=== PATIENT | male | born 1970 | race African-American/Black ===

== ENCOUNTER 2023-03-20 21:02 | Emergency (ER) | payer MEDICAID, SELFPAY ==
[2023-03-20 21:04] VITALS: BMI 27.3
[2023-03-20 21:06] VITALS: BP 174/80; PULSE 89; RESP 16; TEMP 36.7; O2SAT 99
[2023-03-20 21:11] LABS: Glucose Point of Care 407 mg/dL (70-110)
--- NOTE | 2023-03-20 21:11 | W.ED.GENADLT ---
HPI - General Adult General: Chief complaint: General Medical Stated complaint: hyperglycemia Time Seen by Provider: 03/20/23 21:04 Source: patient Mode of arrival: ambulatory Limitations: no limitations History of Present Illness: 52-year-old male who has a history of type 1 diabetes who is here from a assisted. He states that his blood sugars are running in the 500s to 4 7 here he has no other complaints at this time he denies any vomiting diarrhea or abdominal pain. He does have intellectual disability but is still able to answer most questions. Associated symptoms: Deny chest pain, dyspnea, headache(s), nausea, rash or vomiting Review of Systems Const: Denies: fever(s) or chills Eyes: Denies: blurry vision or eye discomfort ENMT: Denies: throat pain Card: Denies: chest pain Resp: Denies: dyspnea GI: Denies: abdominal pain, nausea, vomiting or diarrhea : Denies: dysuria Musc: Denies: neck pain or back pain Skin/Breast: Denies: rash Neuro: Denies: headache(s) PFSH ED PFSH: Medical History (Updated 03/20/23 @ 22:26 by Oneida De Anda MD) Diabetes Physical Exam Const: COMMON NORMALS: no acute distress, patient oriented x3 and healthy appearing HENMT: COMMON NORMALS: normocephalic and atraumatic HEAD & SCALP: normocephalic and atraumatic Eye: COMMON NORMALS: Equal, round and reactive pupils present and EOMs intact bilaterally PUPIL: Yes Equal, round and reactive pupils present Neck/C-Spine: COMMON NORMALS: full ROM and supple Chest: COMMONS NORMALS: normal inspection of the chest and normal palpation of entire chest wall Resp: COMMON NORMALS: normal respiratory effort, No retractions, No use of accessory muscles and clear to auscultation bilaterally AUSCULTATION: clear to auscultation bilaterally Cardio: COMMON NORMALS: regular rate, regular rhythm and No murmurs present (Cardio) RATE: regular rate RHYTHM: regular rhythm GI: COMMON NORMALS: Normal to inspection, nondistended, normoactive bowel sounds present, Soft to palpation, non-tender and no masses PALPATION: Yes Soft to palpation Extremity: COMMON NORMALS: normal to inspection and full ROM Neuro: COMMON NORMALS: patient oriented x3, moves all extremities and no focal motor deficits Psych: COMMON NORMALS: mental status grossly normal, Normal thought process present and cooperative THOUGHT PROCESS: Normal thought process present Skin: COMMON NORMALS: no rashes or lesions noted and no wounds GENERAL SKIN EXAM: no rashes or lesions noted Course Vital Signs: Vital signs: Vital Signs Temperature 98.0 F 03/20/23 21:06 Pulse Rate 93 03/20/23 21:53 Respiratory Rate 18 03/20/23 21:53 Blood Pressure 174/82 03/20/23 21:53 Pulse Oximetry 96 03/20/23 21:53 Oxygen Delivery Me thod Room Air 03/20/23 21:53 MDM - General Adult Medical Decision Making Patient presents with hyperglycemia his blood glucose here is improved he is not in DKA he is otherwise well-appearing here. Does have some chronic kidney disease he has a normal potassium he is to follow-up with his primary care doctor in 1 to 3 days return if worsening discharged back to his assisted. Lab Data 03/20/23 21:10 03/20/23 21:10 Radiology Impressions Chest X-Ray 03/20/23 21:27 IMPRESSION: Mild atelectasis. No acute infiltrate. Laboratory Results WBC 4.3 10^3/uL (4.0-10.0) 03/20/23 21:10 RBC 2.90 10^6/uL (4.1-5.3) L 03/20/23 21:10 Hgb 8.4 g/dL (11.7-16.6) L 03/20/23 21:10 Hct 26.9 % (42.0-52.0) L 03/20/23 21:10 MCV 92.8 fl (80-94) 03/20/23 21:10 MCH 29.0 pg (28.0-34.0) 03/20/23 21:10 MCHC 31.2 g/dL (30.0-36.0) 03/20/23 21:10 RDW 15.8 % (12.1-15.1) H 03/20/23 21:10 Plt Count 253 10^3/cmm (130-400) 03/20/23 21:10 MPV 10.9 fL (7.4-10.4) H 03/20/23 21:10 Neut % (Auto) 67.8 % 03/20/23 21:10 Lymph % (Auto) 22.8 % 03/20/23 21:10 [place] % (Auto) 6.6 % 03/20/23 21:10 Eos % (Auto) 1.6 % 03/20/23 21:10 Baso % (Auto) 0.7 % 03/20/23 21:10 Neut # (Auto) 2.88 10^3/uL (1.8-7.7) 03/20/23 21:10 Lymph # (Auto) 1.0 10^3/uL (0.8-4.8) 03/20/23 21:10 [place] # (Auto) 0.3 10^3/uL (0.2-0.9) 03/20/23 21:10 Eos # (Auto) 0.1 10^3/uL (0.0-0.8) 03/20/23 21:10 Baso # (Auto) 0.0 10^3/uL (0.0-0.1) 03/20/23 21:10 Nucleated RBC % (auto) 0 % 03/20/23 21:10 Nucleated RBCs # 0.0 /100WBC 03/20/23 21:10 Specimen Type Venous 03/20/23 21:33 Sample Site Radial, right 03/20/23 21:33 ABG pH 7.34 (7.35-7.45) L 03/20/23 21:33 ABG pCO2 47.6 mmHg (35-45) H 03/20/23 21:33 ABG HCO3 25.4 mmol/L (22-26) 03/20/23 21:33 ABG Base Excess -0.6 mmol/L (-2.0-2.0) 03/20/23 21:33 Jeff Test Pos 03/20/23 21:33 Hematocrit 24.4 % (42-52) L 03/20/23 21:33 Hgb O2 Saturation 69.2 % (95-100) L 03/20/23 21:33 Carboxyhemoglobin 4.1 %THgb (0.4-20.1) 03/20/23 21:33 Methemoglobin 0.6 % (0.4-1.5) 03/20/23 21:33 Total Hemoglobin 8.0 g/dL (14-18) L 03/20/23 21:33 O2 Delivery Device None 03/20/23 21:33 FiO2 21.0 % 03/20/23 21:33 Scrap Kettle Tender ID [email or web address] 03/20/23 21:33 Sodium 133 mmol/L (136-145) L 03/20/23 21:10 Potassium 4.1 mmol/L (3.5-5.1) 03/20/23 21:10 Chloride 94 mmol/L (98-107) L 03/20/23 21:10 Carbon Dioxide 25 mmol/L (22-29) 03/20/23 21:10 Anion Gap 18.1 (5-19) 03/20/23 21:10 BUN 50 mg/dL (6-20) H 03/20/23 21:10 Creatinine 3.8 mg/dL (0.7-1.2) H 03/20/23 21:10 GFR Calculation 20.3 mL/min (90-130) L 03/20/23 21:10 Glucose 448 mg/dL (65-115) H 03/20/23 21:10 POC Glucose 291 mg/dL (70-110) H 03/20/23 22:23 Calculated Osmolality 309 mOsm/kg (285-295) H 03/20/23 21:10 Calcium 7.1 mg/dL (8.5-10.5) L 03/20/23 21:10 Total Bilirubin 0.4 mg/dL (0.15-1.2) 03/20/23 21:10 AST 32 U/L (0-40) 03/20/23 21:10 ALT 24 U/L (0-41) 03/20/23 21:10 Alkaline Phosphatase 128 U/L (40-130) 03/20/23 21:10 Total Protein 7.1 g/dL (6.6-8.7) 03/20/23 21:10 Albumin 3.8 g/dL (3.5-5.2) 03/20/23 21:10 Globulin 3.3 g/dL (1.3-4.6) 03/20/23 21:10 Serum Ketones Negative (Negative) 03/20/23 21:10 Discharge Plan Discharge Patient Disposition: Home Clinical Impression: Hyperglycemia Condition: Stable Discharge Orders: Discharge ED (Routine); Ordered 03/20/23 Ordered By: Oneida De Anda Discharge Diet: Advance as tolerated Discharge Activity: Resume usual activity Patient Instructions: Diabetic Hyperglycemia (ED) Coding Level of Care Code ED Business Banking Officer for Maria R Garrison
[2023-03-20 21:17] LABS: Basophils % 0.7 %; Eosinophils # 0.1 10^3/uL (0.0-0.8); Eosinophils % 1.6 %; Hematocrit 26.9 % (42.0-52.0); Hemoglobin 8.4 g/dL (11.7-16.6); Lymphocytes % 22.8 %; Mean Corpuscular HGB Conc 31.2 g/dL (30.0-36.0); Mean Corpuscular Volume 92.8 fl (80-94); Mean Platelet Volume 10.9 fL (7.4-10.4); Monocytes # 0.3 10^3/uL (0.2-0.9); Monocytes % 6.6 %; Neutrophils # 2.88 10^3/uL (1.8-7.7); Neutrophils % 67.8 %; Nucleated Red Blood Cells % 0 %; Platelet Count 253 10^3/cmm (130-400); Red Cell Distribution Width 15.8 % (12.1-15.1); White Blood Count 4.3 10^3/uL (4.0-10.0)
[2023-03-20] MEDS: sodium chloride 0.9% 1,000 ML 999 ML IV (21:26)
[2023-03-20 21:27] LABS: Ketone (Acetest) Serum Negative (Negative)
[2023-03-20] MEDS: insulin regular-human 100 units/1 mL 10 UNIT IVP (21:27)
--- NOTE | 2023-03-20 21:27 | XRR_ITS ---
PROCEDURE INFORMATION: Exam: XR Chest Exam date and time: 03/20/2023 9:36 PM Age: 52 years old Clinical indication: Pain; Chest pressure; Additional info: Cp TECHNIQUE: Imaging protocol: Radiologic exam of the chest. Views: 1 view. COMPARISON: No relevant prior studies available. FINDINGS: Lungs: There is some subsegmental atelectasis in the lingula. Is no pulmonary vascular congestion. Pleural spaces: Unremarkable. No pleural effusion. No pneumothorax. Heart/Mediastinum: Heart is within normal limits of size. Bones/joints: Unremarkable. XR/XR chest 1V portable [id number] IMPRESSION: Mild atelectasis. No acute infiltrate.
[2023-03-20 21:31] LABS: Alanine Aminotransferase 24 U/L (0-41); Albumin Level 3.8 g/dL (3.5-5.2); Alkaline Phosphatase 128 U/L (40-130); Anion Gap 18.1 (5-19); Aspartate Amino Transferase 32 U/L (0-40); Blood Urea Nitrogen 50 mg/dL (6-20); Calcium 7.1 mg/dL (8.5-10.5); Carbon Dioxide 25 mmol/L (22-29); Chloride 94 mmol/L (98-107); Globulin 3.3 g/dL (1.3-4.6); Glomerular Filtration Rate 20.3 mL/min (90-130); Glucose 448 mg/dL (65-115); Osmolality Calculated 309 mOsm/kg (285-295); Potassium 4.1 mmol/L (3.5-5.1); Sodium 133 mmol/L (136-145); Total Bilirubin 0.4 mg/dL (0.15-1.2); Total Protein 7.1 g/dL (6.6-8.7)
[2023-03-20 21:37] LABS: ABG PCO2 47.6 mmHg (35-45); ABG PH Result 7.34 (7.35-7.45); Arterial Blood Gas Hematocrit 24.4 % (42-52); Base Excess ABG -0.6 mmol/L (-2.0-2.0); Blood Gas Allen Test Pos; Blood Gas Sample Site Radial, right; Carboxyhemoglobin 4.1 %THgb (0.4-20.1); HCO3 ABG 25.4 mmol/L (22-26); HGB O2 Sat 69.2 % (95-100); Methemoglobin 0.6 % (0.4-1.5)
[2023-03-20 21:40] LABS: Blood Gas Sample Type Venous
--- NOTE | 2023-03-20 21:40 | ECG_ITS ---
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 Measurements Intervals [place] Rate: 91 P: 67 WV: 201 QRS: -74 QRSD: 180 T: 20 QT: 437 QTc: 539 Interpretive Statements SINUS RHYTHM RIGHT BUNDLE BRANCH BLOCK [120+ ms QRS DURATION, UPRIGHT V1, 40+ ms S IN I/aVL/V4/V5/V6] LEFT ANTERIOR FASCICULAR BLOCK [QRS AXIS <= -45, QR IN I, RS IN II] No previous ECG available for comparison Electronically Signed On 03-21-2023 0:19:39 CDT by Kavitha Hernandez M.D. [id number]
[2023-03-20 21:53] VITALS: BP 174/82; PULSE 93; RESP 18; O2SAT 96
[2023-03-20] MEDS: hyDRALAzine 20 mg/mL INJ 1 mL 10 MG IVP (21:55)
[2023-03-20 22:00] VITALS: BP 173/80; PULSE 94; RESP 20; O2SAT 96
[2023-03-20 22:15] VITALS: BP 161/80; PULSE 92; RESP 27; O2SAT 94
[2023-03-20 22:27] LABS: Glucose Point of Care 291 mg/dL (70-110)
[2023-03-20 22:30] VITALS: BP 126/69; PULSE 90; RESP 24; O2SAT 94
[2023-03-20 23:32] VITALS: BP 135/66; PULSE 88; RESP 22; O2SAT 96
[2023-03-21 13:10] LABS: PO2 ABG 39.6 mmHg (80.0-100.0)
== END 2023-03-20 23:36 | disposition home or self-care (01) ==
PROVIDERS: Emergency Provider Emergency Medicine; PCP Family Medicine
DX: E10.65 Type 1 diabetes mellitus with hyperglycemia (principal)
CPT/HCPCS: 36416; 36600; 71045; 80053; 82009; 82805; 82962; 85025; 93005; 96374; 96375; 99285; J0360; J1815; J7030

== ENCOUNTER 2023-03-30 14:00 | Emergency (ER) | payer MEDICAID, SELFPAY ==
[2023-03-30] VITALS (9 sets, daily range): BP systolic 143–177; BP diastolic 80–101; PULSE 72–78; RESP 18–19; TEMP 36.9; O2SAT 96–100; BMI 23.9
--- NOTE | 2023-03-30 14:26 | ECG_ITS ---
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 Measurements Intervals [place] Rate: 114 P: 0 NH: 0 QRS: 226 QRSD: 96 T: 120 QT: 199 QTc: 274 Interpretive Statements SUPRAVENTRICULAR TACHYCARDIA INFERIOR MYOCARDIAL INFARCTION , PROBABLY OLD [40+ ms Q WAVE AND/OR ST/T ABNORMALITY IN II/aVF] ANTEROLATERAL MYOCARDIAL INFARCTION , AGE INDETERMINATE Compared to ECG 03/20/2023 21:40:45 Myocardial infarct finding now present Sinus rhythm no longer present Right bundle-branch block no longer present Left anterior fascicular block no longer present Electronically Signed On 03-30-2023 15:46:31 CDT by Izaiah Reyna M.D. [id number]
--- NOTE | 2023-03-30 16:10 | W.ED.RECABL ---
HPI - Recheck/Abnormal Lab/Rx General: Chief Complaint: Recheck/Abnormal Lab/Rx Stated Complaint: b [place] sent/headache/chest hurts/lt arm numb Time Seen by Provider: 03/30/23 15:38 History of Present Illness: Patient presents here with caretakers for high blood pressure. They brought in the patient's blood pressure log over the last 2 weeks and has been anywhere between 1 60-2 20. Patient is on 4 blood pressure medicines which she does take. Patient presents today with high blood pressure and history of heart pain yesterday per patient. Patient is pain-free as of the moment. Patient recently moved down here approximately 12 days ago from the [facility]. Review of Systems General: Reports: 10 or more systems reviewed and unremarkable except in HPI and below PFSH ED PFSH: Medical History Diabetes Physical Exam Const: COMMON NORMALS: no acute distress, average body habitus, healthy appearing, alert and well nourished; limitations (Limited by patient's moderate intellectual disability) HENMT: COMMON NORMALS: normocephalic, atraumatic, hearing grossly normal bilaterally, external ears normal, Normal external nose present and moist oral mucous membranes HEAD & SCALP: normocephalic and atraumatic NOSE: Normal external nose present EXTERNAL EAR: Yes external ears normal Eye: COMMON NORMALS: Equal, round and reactive pupils present, EOMs intact bilaterally, conjunctivae normal and no scleral icterus CONJUNCTIVA: Yes conjunctivae normal PUPIL: Yes Equal, round and reactive pupils present Neck/C-Spine: COMMON NORMALS: full ROM, no lymphadenopathy, supple, no meningeal signs and no JVD Chest: COMMONS NORMALS: normal inspection of the chest and normal palpation of entire chest wall Resp: COMMON NORMALS: normal respiratory effort, No retractions, No use of accessory muscles and clear to auscultation bilaterally AUSCULTATION: clear to auscultation bilaterally Cardio: COMMON NORMALS: no JVD, regular rate, regular rhythm, S1 normal heart sound present, S2 normal heart sound present, No gallops present (Cardio), No clicks present (Cardio), No murmurs present (Cardio) and No rub (Cardio) RATE: regular rate RHYTHM: regular rhythm HEART SOUNDS: S1 normal heart sound present and S2 normal heart sound present GI: COMMON NORMALS: Normal to inspection, nondistended, normoactive bowel sounds present, Soft to palpation, non-tender, No hepatosplenomegaly present and no masses PALPATION: Yes Soft to palpation and Yes No hepatosplenomegaly present : COMMON NORMALS: Yes no CVA tenderness BLADDER/KIDNEY EXAM: Yes no CVA tenderness Back/Pelvis: COMMON NORMALS: no CVA tenderness Neuro: SENSORIUM/ORIENTATION: Yes alert MENINGEAL SIGNS: Yes no meningeal signs Course Vital Signs: Vital signs: Vital Signs Temperature 98.4 F 03/30/23 14:08 Pulse Rate 72 03/30/23 18:30 Respiratory Rate 19 H 03/30/23 15:45 Blood Pressure 173/94 03/30/23 18:30 Pulse Oximetry 98 03/30/23 18:30 Oxygen Delivery Me thod Room Air 03/30/23 16:30 MDM - Recheck/Abnormal Lab/Rx Medical Decision Making Patient presents to the ER with complaints of high blood pressure. Patient did bring a log and his blood pressures run anywhere from 220 down to 160 being the lowest. At the time of the assessment is 165/101 and has not really changed despite given multiple additional doses of oral medicine here in ER. Lab work was obtained which revealed patient is anemic and has chronic kidney failure. With this is stable for him. His magnesium is low at 1.0 he will be given oral magnesium here in the ER and discharged on magnesium as well as multiple blood pressure medicine changes. He should follow-up with his PCP in approximately 1 week and keep a blood pressure log during this time. Differential Diagnosis Unlikely encounter for medication refill, encounter for wound recheck, encounter for recheck of burn, encounter for removal of sutures or warfarin-induced coagulopathy Medical Records I reviewed the patient's medical records. Lab Data I reviewed the patient's lab results. 03/30/23 16:25 03/30/23 16:25 Laboratory Results WBC 5.3 10^3/uL (4.0-10.0) 03/30/23 16: RBC 2.69 10^6/uL (4.1-5.3) L 03/30/23 16:25 Hgb 7.9 g/dL (11.7-16.6) L 03/30/23 16:25 Hct 24.4 % (42.0-52.0) L 03/30/23 16:25 MCV 90.7 fl (80-94) 03/30/23 16:25 MCH 29.4 pg (28.0-34.0) 03/30/23 16:25 MCHC 32.4 g/dL (30.0-36.0) 03/30/23 16:25 RDW 16.2 % (12.1-15.1) H 03/30/23 16:25 Plt Count 219 10^3/cmm (130-400) 03/30/23 16:25 MPV 10.1 fL (7.4-10.4) 03/30/23 16:25 Neut % (Auto) 63.7 % 03/30/23 16:25 Lymph % (Auto) 24.2 % 03/30/23 16:25 [place] % (Auto) 7.9 % 03/30/23 16:25 Eos % (Auto) 3.0 % 03/30/23 16:25 Baso % (Auto) 0.6 % 03/30/23 16:25 Neut # (Auto) 3.40 10^3/uL (1.8-7.7) 03/30/23 16:25 Lymph # (Auto) 1.3 10^3/uL (0.8-4.8) 03/30/23 16:25 [place] # (Auto) 0.4 10^3/uL (0.2-0.9) 03/30/23 16:25 Eos # (Auto) 0.2 10^3/uL (0.0-0.8) 03/30/23 16:25 Baso # (Auto) 0.0 10^3/uL (0.0-0.1) 03/30/23 16:25 Nucleated RBC % (auto) 0 % 03/30/23 16:25 Nucleated RBCs # 0.0 /100WBC 03/30/23 16:25 Sodium 134 mmol/L (136-145) L 03/30/23 16:25 Potassium 4.1 mmol/L (3.5-5.1) 03/30/23 16:25 Chloride 95 mmol/L (98-107) L 03/30/23 16:25 Carbon Dioxide 25 mmol/L (22-29) 03/30/23 16:25 Anion Gap 18.1 (5-19) 03/30/23 16:25 BUN 50 mg/dL (6-20) H 03/30/23 16:25 Creatinine 3.3 mg/dL (0.7-1.2) H 03/30/23 16:25 GFR Calculation 23.8 mL/min (90-130) L 03/30/23 16:25 Glucose 180 mg/dL (65-115) H 03/30/23 16:25 Calculated Osmolality 296 mOsm/kg (285-295) H 03/30/23 16:25 Calcium 6.7 mg/dL (8.5-10.5) L 03/30/23 16:25 Phosphorus 4.8 mg/dL (2.5-4.5) H 03/30/23 16:25 Magnesium 1.0 mg/dL (1.7-2.3) L 03/30/23 16:25 Total Bilirubin 0.3 mg/dL (0.15-1.2) 03/30/23 16:25 AST 34 U/L (0-40) 03/30/23 16:25 ALT 19 U/L (0-41) 03/30/23 16:25 Alkaline Phosphatase 117 U/L (40-130) 03/30/23 16:25 Total Protein 6.6 g/dL (6.6-8.7) 03/30/23 16:25 Albumin 3.3 g/dL (3.5-5.2) L 03/30/23 16:25 Globulin 3.3 g/dL (1.3-4.6) 03/30/23 16:25 TSH 1.23 uIU/mL (0.27-4.20) 03/30/23 16:25 EKG Data EKG 1: I personally reviewed and interpreted this EKG as follows: EKG interpretation date: 03/30/23 EKG interpretation time: 16:21 Prior EKG tracings: not available for review Interpretation: EKG showed ventricular rate 76 beats minute, NC interval 206, QRS duration 117, QTc 462, sinus rhythm, left axis deviation, pattern consistent with pulmonary disease, septal NV of indeterminate age with Q waves in V1 and V2, Discharge Plan Discharge Patient Disposition: Home Clinical Impression: Hypomagnesemia Hypertension Qualifiers: Hypertension type: primary hypertension Qualified Code(s): I10 - Essential (primary) hypertension Condition: Stable Prescriptions: New Zestoretic 20-25 mg tablet 2 tab PO DAILY Qty: 60 0RF magnesium oxide 400 mg magnesium tablet 400 mg PO TID Qty: 90 0RF clonidine HCl 0.3 mg tablet 0.3 mg PO Q8H Qty: 90 0RF Discontinued clonidine HCl 0.2 mg Tablet 0.2 mg PO TID lisinopril 10 mg Tablet 10 mg PO BID No Action carvedilol 25 mg Tablet 25 mg PO BID Rx Instructions: must administer with a meal/food atorvastatin 10 mg Tablet 10 mg PO QPM carbamazepine 200 mg Tablet 200 mg PO TID aspirin 325 mg tablet,delayed release (DR/EC) 325 mg PO DAILY amlodipine 10 mg Tablet 10 mg PO DAILY pantoprazole 40 mg Tablet,Delayed Release (Dr/Ec) 40 mg PO DAILY ferrous sulfate 325 mg (65 mg iron) Tablet 325 mg PO DAILY TRUEplus Glucose 4 gram tablet,chewable 4 g PO DAILY PRN (Reason: blood sugar) benztropine 1 mg Tablet 1 mg PO BID gabapentin 300 mg Capsule 300 mg PO TID albuterol sulfate 90 mcg/actuation Hfa Aerosol Inhaler 2 puff INHALATION 6XD PRN (Reason: Shortness Of Breath Or Wheezing) aripiprazole 20 mg Tablet 20 mg PO DAILY Novolog FlexPen U-100 Insulin 100 unit/mL (3 mL) Insulin Pen 6 unit SUBCUT DAILY Rx Instructions: per sliding scale fenofibrate 160 mg Tablet 160 mg PO DAILY Tylenol 325 mg Capsule 650 mg PO Q4H PRN (Reason: Pain) Lantus Solostar U-100 Insulin 100 unit/mL (3 mL) Insulin Pen 5 unit SUBCUT QPM multivitamin with folic acid [Daily-Sean (with folic acid)] 400 mcg tablet 1 tab PO DAILY lurasidone 60 mg Tablet 60 mg PO DAILY Rx Instructions: must administer with food (at least 350 calories) Discharge Orders: Discharge ED (Routine); Ordered 03/30/23 Ordered By: Heladio Anthony Referrals: Patience Watkins MD [Primary Care Provider] - 1 week Patient Instructions: Hypertension, Hypomagnesemia (ED) Activity Restrictions/Additional Instructions: Please keep your blood pressure log and take it to your next primary care visit. Please follow-up in approximately 1 week. Please take all medicine as directed. Please stop your clonidine and lisinopril as a have been replaced with a stronger dose of clonidine and lisinopril with hydrochlorothiazide. Please return to the ER as needed. Coding Level of Care Code ED Dietetic Assistant for Maria R Garrison
--- NOTE | 2023-03-30 16:12 | XRR_ITS ---
PROCEDURE INFORMATION: Exam: XR Chest Exam date and time: 03/30/2023 4:49 PM Age: 52 years old Clinical indication: Other: Headache, chest pain, left arm numbness and hypertension. ; Additional info: HTN; Headache/ chest pain/ left arm is numb/ hypertension. TECHNIQUE: Imaging protocol: Radiologic exam of the chest. Views: 1 view. COMPARISON: CR (CHEST, ) 03/20/2023 9:36 PM FINDINGS: Lungs: Unremarkable. No consolidation. Pleural spaces: Unremarkable. No pleural effusion. No pneumothorax. Heart/Mediastinum: Cardiomegaly. Bones/joints: Unremarkable. XR/XR chest 1V portable [id number] IMPRESSION: Cardiomegaly
[2023-03-30] MEDS: cloNIDine 0.1 mg Tablet 0.2 MG PO (16:18)
[2023-03-30 16:34] LABS: Basophils % 0.6 %; Eosinophils # 0.2 10^3/uL (0.0-0.8); Hematocrit 24.4 % (42.0-52.0); Hemoglobin 7.9 g/dL (11.7-16.6); Lymphocytes # 1.3 10^3/uL (0.8-4.8); Lymphocytes % 24.2 %; Mean Corpuscular HGB Conc 32.4 g/dL (30.0-36.0); Mean Corpuscular Hemoglobin 29.4 pg (28.0-34.0); Mean Corpuscular Volume 90.7 fl (80-94); Mean Platelet Volume 10.1 fL (7.4-10.4); Monocytes # 0.4 10^3/uL (0.2-0.9); Monocytes % 7.9 %; Neutrophils % 63.7 %; Nucleated Red Blood Cells % 0 %; Platelet Count 219 10^3/cmm (130-400); Red Blood Count 2.69 10^6/uL (4.1-5.3); Red Cell Distribution Width 16.2 % (12.1-15.1); White Blood Count 5.3 10^3/uL (4.0-10.0)
[2023-03-30 17:01] LABS: Alanine Aminotransferase 19 U/L (0-41); Albumin Level 3.3 g/dL (3.5-5.2); Alkaline Phosphatase 117 U/L (40-130); Anion Gap 18.1 (5-19); Aspartate Amino Transferase 34 U/L (0-40); Blood Urea Nitrogen 50 mg/dL (6-20); Calcium 6.7 mg/dL (8.5-10.5); Carbon Dioxide 25 mmol/L (22-29); Chloride 95 mmol/L (98-107); Globulin 3.3 g/dL (1.3-4.6); Glomerular Filtration Rate 23.8 mL/min (90-130); Glucose 180 mg/dL (65-115); Osmolality Calculated 296 mOsm/kg (285-295); Phosphorus 4.8 mg/dL (2.5-4.5); Potassium 4.1 mmol/L (3.5-5.1); Sodium 134 mmol/L (136-145); Thyroid Stimulating Hormone 1.23 uIU/mL (0.27-4.20); Total Bilirubin 0.3 mg/dL (0.15-1.2); Total Protein 6.6 g/dL (6.6-8.7)
[2023-03-30] MEDS: hyDRALAzine 25 mg Tablet PO (18:16)
[2023-03-30] MEDS: hydroCHLOROthiazide 25 mg Tablet PO (18:16)
[2023-03-30] MEDS: magnesium oxide 400 mg tablet 800 MG PO (18:41)
== END 2023-03-30 19:37 | disposition home or self-care (01) ==
PROVIDERS: Emergency Provider Emergency Medicine; PCP Family Medicine
DX: I10 Essential (primary) hypertension (principal); E83.42 Hypomagnesemia; Z79.82 Long term (current) use of aspirin; Z79.4 Long term (current) use of insulin; E11.9 Type 2 diabetes mellitus without complications
CPT/HCPCS: 36415; 71045; 80053; 83735; 84100; 84443; 85025; 93005; 99285

== ENCOUNTER 2023-04-01 20:33 | Emergency (ER) | payer MEDICAID, SELFPAY ==
[2023-04-01 20:45] VITALS: BP 187/86; PULSE 95; RESP 18; TEMP 37.1; O2SAT 95
--- NOTE | 2023-04-01 21:16 | ED_ITS ---
HPI - Recheck/Abnormal Lab/Rx General: Chief Complaint: Recheck/Abnormal Lab/Rx Stated Complaint: hyperglycemia Time Seen by Provider: 04/01/23 20:49 History of Present Illness: Patient presents to the ER with complaints of a blood sugar of approximately 547 per fingerstick. Patient is insulin-dependent diabetic who is on NovoLog per sliding scale and also Lantus. Patient's blood sugar at lunch was below 150 so they did not give him his sliding scale within a 1 out and they think he ate a bunch of snacks so when he rechecked at 8 PM it was approximately 483 try to get hold her medical doctor nuclear medicine but could not so they called EMS and when EMS got there is approximately 550. So he was brought him to the ER. Review of Systems General: Reports: 10 or more systems reviewed and unremarkable except in HPI and below PFSH ED PFSH: Medical History Diabetes Physical Exam Const: COMMON NORMALS: no acute distress, average body habitus, no limit ations, healthy appearing, alert and well nourished Neck/C-Spine: COMMON NORMALS: no JVD Chest: COMMONS NORMALS: normal inspection of the chest and normal palpation of entire chest wall Resp: COMMON NORMALS: normal respiratory effort, No retractions, No use of accessory muscles and clear to auscultation bilaterally AUSCULTATION: clear to auscultation bilaterally Cardio: COMMON NORMALS: no JVD, regular rate, regular rhythm, S1 normal heart sound present, S2 normal heart sound present, No gallops present (Cardio), No clicks present (Cardio), No murmurs present (Cardio) and No rub (Cardio) RATE: regular rate RHYTHM: regular rhythm HEART SOUNDS: S1 normal heart sound present and S2 normal heart sound present GI: COMMON NORMALS: Normal to inspection, nondistended, normoactive bowel sounds present, Soft to palpation, non-tender, No hepatosplenomegaly present and no masses PALPATION: Yes Soft to palpation and Yes No hepatosplenomegaly present : COMMON NORMALS: Yes no CVA tenderness BLADDER/KIDNEY EXAM: Yes no CVA tenderness Back/Pelvis: COMMON NORMALS: no CVA tenderness Neuro: SENSORIUM/ORIENTATION: Yes alert Course Vital Signs: Vital signs: Vital Signs Temperature 98.8 F 04/01/23 20:45 Pulse Rate 86 04/01/23 22:22 Respiratory Rate 14 04/01/23 22:22 Blood Pressure 189/89 04/01/23 22:22 Pulse Oximetry 100 04/01/23 22:22 Oxygen Delivery Me thod Room Air 04/01/23 22:22 MDM - Recheck/Abnormal Lab/Rx Medical Decision Making Patient presents to the ER with complaints of blood sugar in the 500s. Patient's insulin today at noon was held because he did not meet the requirements for sliding scale. Then it appears that patient ate a lot of sweets and then at 8:00 his blood sugar was in the 500s so sent to the ER. Patient was given 15 units of regular insulin IV. We anticipate the patient's blood sugar will decrease and the patient will be sent back to his facility. Patient's blood sugar will be checked in 1 hour from the time we gave the insulin. Differential Diagnosis Unlikely encounter for medication refill, encounter for wound recheck, encounter for recheck of burn, encounter for removal of sutures or warfarin-induced coagulopathy Medical Records I reviewed the patient's medical records. Lab Data I reviewed the patient's lab results. Laboratory Results POC Glucose 579 mg/dL (70-110) H* 04/01/23 21:58 Discharge Plan Discharge Patient Disposition: Home Clinical Impression: Hyperglycemia due to diabetes mellitus Condition: Stable Prescriptions: No Action carvedilol 25 mg Tablet 25 mg PO BID Rx Instructions: must administer with a meal/food atorvastatin 10 mg Tablet 10 mg PO QPM carbamazepine 200 mg Tablet 200 mg PO TID aspirin 325 mg tablet,delayed release (DR/EC) 325 mg PO DAILY amlodipine 10 mg Tablet 10 mg PO DAILY pantoprazole 40 mg Tablet,Delayed Release (Dr/Ec) 40 mg PO DAILY ferrous sulfate 325 mg (65 mg iron) Tablet 325 mg PO DAILY TRUEplus Glucose 4 gram tablet,chewable 4 g PO DAILY PRN (Reason: blood sugar) benztropine 1 mg Tablet 1 mg PO BID gabapentin 300 mg Capsule 300 mg PO TID albuterol sulfate 90 mcg/actuation Hfa Aerosol Inhaler 2 puff INHALATION 6XD PRN (Reason: Shortness Of Breath Or Wheezing) aripiprazole 20 mg Tablet 20 mg PO DAILY Novolog FlexPen U-100 Insulin 100 unit/mL (3 mL) Insulin Pen 6 unit SUBCUT DAILY Rx Instructions: per sliding scale fenofibrate 160 mg Tablet 160 mg PO DAILY Tylenol 325 mg Capsule 650 mg PO Q4H PRN (Reason: Pain) Lantus Solostar U-100 Insulin 100 unit/mL (3 mL) Insulin Pen 5 unit SUBCUT QPM multivitamin with folic acid [Daily-Sean (with folic acid)] 400 mcg tablet 1 tab PO DAILY lurasidone 60 mg Tablet 60 mg PO DAILY Rx Instructions: must administer with food (at least 350 calories) Zestoretic 20-25 mg tablet 2 tab PO DAILY Qty: 60 0RF magnesium oxide 400 mg magnesium tablet 400 mg PO TID Qty: 90 0RF clonidine HCl 0.3 mg tablet 0.3 mg PO Q8H Qty: 90 0RF Discharge Orders: Discharge ED (Routine); Ordered 04/01/23 Ordered By: Heladio Anthony Referrals: Patience Watkins MD [Primary Care Provider] - 1 week Patient Instructions: Diabetic Hyperglycemia (ED) Coding Level of Care Code ED R And D Lab Technician for Maria R Garrison
[2023-04-01 22:02] LABS: Glucose Point of Care 561 mg/dL (70-110)
[2023-04-01 22:02] LABS: Glucose Point of Care 579 mg/dL (70-110)
[2023-04-01] MEDS: insulin regular-human 100 units/1 mL 15 UNIT IVP (22:16)
[2023-04-01 22:22] VITALS: BP 189/89; PULSE 86; RESP 14; O2SAT 100
[2023-04-01 23:40] LABS: Glucose Point of Care 230 mg/dL (70-110)
[2023-04-01 23:57] VITALS: BP 176/90; PULSE 82; RESP 16; O2SAT 98
== END 2023-04-01 23:59 | disposition home or self-care (01) ==
PROVIDERS: Emergency Provider Emergency Medicine; PCP Family Medicine
DX: E11.65 Type 2 diabetes mellitus with hyperglycemia (principal); Z79.82 Long term (current) use of aspirin; Z79.899 Other long term (current) drug therapy
CPT/HCPCS: 36416; 82962; 96374; 99284; J1815

== ENCOUNTER 2023-04-02 20:27 | Emergency (ER) | payer MEDICAID, SELFPAY ==
[2023-04-02 20:28] VITALS: BP 169/84; PULSE 92; RESP 18; TEMP 37; O2SAT 98; BMI 26.6
--- NOTE | 2023-04-02 20:28 | ED_ITS ---
HPI - General Adult General: Chief complaint: Recheck/Abnormal Lab/Rx Stated complaint: hyperglycemia Time Seen by Provider: 04/02/23 20:27 History of Present Illness: Mr. Leach is a 52-year-old gentleman with history of insulin-dependent diabetes presenting for evaluation of hyperglycemia. He is his own guardian and resides with caregivers. They noted earlier today his blood sugar was greater than 300 and did not improve with insulin. He notes some headache but otherwise no specific changes in health. History is mildly limited by communication barrier. No other specific changes in health, exacerbating, or alleviating factors identified. Severity: mild Associated symptoms: Reports headache(s) Review of Systems General: Reports: 10 or more systems reviewed and unremarkable except in HPI and below Neuro: Reports: headache(s) PFSH ED PFSH: Medical History Diabetes Physical Exam Const: COMMON NORMALS: alert GENERAL APPEARANCE: cooperative and well developed HENMT: COMMON NORMALS: normocephalic and atraumatic HEAD & SCALP: normocephalic and atraumatic Eye: COMMON NORMALS: conjunctivae normal CONJUNCTIVA: Yes conjunctivae normal SCLERA: sclerae normal Neck/C-Spine: COMMON NORMALS: supple GENERAL: Yes trachea midline Resp: COMMON NORMALS: normal respiratory effort EFFORT & INSPECTION: Yes able to speak in complete sentences Cardio: COMMON NORMALS: regular rate and regular rhythm RATE: regular rate RHYTHM: regular rhythm GI: COMMON NORMALS: Soft to palpation PALPATION: Yes Soft to palpation and No Tenderness to palpation present (GI) Extremity: GENERAL: Yes normal exam except as noted and No edema Neuro: COMMON NORMALS: moves all extremities SENSORIUM/ORIENTATION: Yes alert and No Orientation impaired Psych: COMMON NORMALS: mental status grossly normal and Normal thought process present THOUGHT PROCESS: Normal thought process present Course Vital Signs: Vital signs: Vital Signs Temperature 98.6 F 04/02/23 20:28 Pulse Rate 85 04/02/23 23:26 Respiratory Rate 18 04/02/23 23:26 Blood Pressure 158/84 04/02/23 23:26 Pulse Oximetry 98 04/02/23 23:26 Oxygen Delivery Me thod Room Air 04/02/23 21:36 [facility] [place] - General Adult Medical Decision Making 52-year-old gentleman presenting from custodial for evaluation of hyperglycemia. Labs with no leukocytosis, baseline normocytic anemia likely secondary to CKD. Elevated glucose without DKA. Recent chest x-ray reviewed. No indication for repeat. Patient treated with fluids, magnesium replenishment, insulin. Glucose improved on repeat. Plan to increase sliding scale in the outpatient setting. Challenging situation given underlying CKD and caution is needed regarding insulin however patient is largely noncompliant with diet per staff and does require improved control. The results of ED evaluation were discussed with the patient and staff including prescriptions and/or symptomatic cares (if applicable) including appropriate and responsible use, followup plan, and return precautions. The patient and staff verbalized understanding and felt safe for discharge. Medical Records I reviewed the patient's medical records. Lab Data I reviewed the patient's lab results. 04/02/23 20:15 04/02/23 20:15 Laboratory Results WBC 4.7 10^3/uL (4.0-10.0) 04/02/23 20:15 RBC 2.80 10^6/uL (4.1-5.3) L 04/02/23 20:15 Hgb 8.2 g/dL (11.7-16.6) L 04/02/23 20:15 Hct 25.2 % (42.0-52.0) L 04/02/23 20:15 MCV 90.0 fl (80-94) 04/02/23 20:15 MCH 29.3 pg (28.0-34.0) 04/02/23 20:15 MCHC 32.5 g/dL (30.0-36.0) 04/02/23 20:15 RDW 16.1 % (12.1-15.1) H 04/02/23 20:15 Plt Count 256 10^3/cmm (130-400) 04/02/23 20:15 MPV 10.3 fL (7.4-10.4) 04/02/23 20:15 Neut % (Auto) 66.6 % 04/02/23 20:15 Lymph % (Auto) 23.7 % 04/02/23 20:15 [place] % (Auto) 7.0 % 04/02/23 20:15 Eos % (Auto) 1.7 % 04/02/23 20:15 Baso % (Auto) 0.6 % 04/02/23 20:15 Neut # (Auto) 3.12 10^3/uL (1.8-7.7) 04/02/23 20:15 Lymph # (Auto) 1.1 10^3/uL (0.8-4.8) 04/02/23 20:15 [place] # (Auto) 0.3 10^3/uL (0.2-0.9) 04/02/23 20:15 Eos # (Auto) 0.1 10^3/uL (0.0-0.8) 04/02/23 20:15 Baso # (Auto) 0.0 10^3/uL (0.0-0.1) 04/02/23 20:15 Nucleated RBC % (auto) 0 % 04/02/23 20:15 Nucleated RBCs # 0.0 /100WBC 04/02/23 20:15 Sodium 130 mmol/L (136-145) L 04/02/23 20:15 Potassium 5.1 mmol/L (3.5-5.1) 04/02/23 20:15 Chloride 92 mmol/L (98-107) L 04/02/23 20:15 Carbon Dioxide 29 mmol/L (22-29) 04/02/23 20:15 Anion Gap 14.1 (5-19) 04/02/23 20:15 BUN 49 mg/dL (6-20) H 04/02/23 20:15 Creatinine 3.7 mg/dL (0.7-1.2) H 04/02/23 20:15 GFR Calculation 20.9 mL/min (90-130) L 04/02/23 20:15 Glucose 384 mg/dL (65-115) H 04/02/23 20:15 POC Glucose 148 mg/dL (70-110) H 04/02/23 22:57 Calculated Osmolality 299 mOsm/kg (285-295) H 04/02/23 20:15 Calcium 8.2 mg/dL (8.5-10.5) L 04/02/23 20:15 Magnesium 1.3 mg/dL (1.7-2.3) L 04/02/23 20:15 Total Bilirubin 0.3 mg/dL (0.15-1.2) 04/02/23 20:15 AST 36 U/L (0-40) 04/02/23 20:15 ALT 20 U/L (0-41) 04/02/23 20:15 Alkaline Phosphatase 133 U/L (40-130) H 04/02/23 20:15 Total Protein 7.0 g/dL (6.6-8.7) 04/02/23 20:15 Albumin 3.8 g/dL (3.5-5.2) 04/02/23 20:15 Globulin 3.2 g/dL (1.3-4.6) 04/02/23 20:15 Urine Color Colorless (Yellow) 04/02/23 20:51 Urine Appearance Clear (CLEAR) 04/02/23 20:51 Urine pH 8 (5-7) H 04/02/23 20:51 Ur Specific [place] 1.015 (1.005-1.030) 04/02/23 20:51 Urine Protein 1+ (Negative) H 04/02/23 20:51 Urine Glucose (UA) 4+ (Normal) H 04/02/23 20:51 Urine Ketones Negative (Negative) 04/02/23 20:51 Urine Blood Neg (Negative) 04/02/23 20:51 Urine Nitrate Negative (Negative) 04/02/23 20:51 Urine Bilirubin Neg (Negative) 04/02/23 20:51 Prot Sulfosalicylic Acd Positive (Negative) 04/02/23 20:51 Urine Urobilinogen Neg mg/dL (Negative) 04/02/23 20:51 Ur Leukocyte Esterase Negative (Negative) 04/02/23 20:51 Urine RBC 0-4 /hpf (0-2) H 04/02/23 20:51 Urine WBC None /hpf (0-5) 04/02/23 20:51 Ur Squamous Epith Cells None /hpf (0-5) 04/02/23 20:51 Amorphous Sediment Not Reportable 04/02/23 20:51 Urine Bacteria None /hpf (NONE) 04/02/23 20:51 Serum Ketones Negative (Negative) 04/02/23 20:15 Discharge Plan Discharge Patient Disposition: Home Clinical Impression: Diabetes mellitus with hyperglycemia, Hypomagnesemia, Chronic anemia, CKD (chronic kidney disease) Condition: Stable Prescriptions: No Action carvedilol 25 mg Tablet 25 mg PO BID Rx Instructions: must administer with a meal/food atorvastatin 10 mg Tablet 10 mg PO QPM carbamazepine 200 mg Tablet 200 mg PO TID aspirin 325 mg tablet,delayed release (DR/EC) 325 mg PO DAILY amlodipine 10 mg Tablet 10 mg PO DAILY pantoprazole 40 mg Tablet,Delayed Release (Dr/Ec) 40 mg PO DAILY ferrous sulfate 325 mg (65 mg iron) Tablet 325 mg PO DAILY TRUEplus Glucose 4 gram tablet,chewable 4 g PO DAILY PRN (Reason: blood sugar) benztropine 1 mg Tablet 1 mg PO BID gabapentin 300 mg Capsule 300 mg PO TID albuterol sulfate 90 mcg/actuation Hfa Aerosol Inhaler 2 puff INHALATION 6XD PRN (Reason: Shortness Of Breath Or Wheezing) aripiprazole 20 mg Tablet 20 mg PO DAILY Novolog FlexPen U-100 Insulin 100 unit/mL (3 mL) Insulin Pen 6 unit SUBCUT DAILY Rx Instructions: per sliding scale fenofibrate 160 mg Tablet 160 mg PO DAILY Tylenol 325 mg Capsule 650 mg PO Q4H PRN (Reason: Pain) Lantus Solostar U-100 Insulin 100 unit/mL (3 mL) Insulin Pen 5 unit SUBCUT QPM multivitamin with folic acid [Daily-Sean (with folic acid)] 400 mcg tablet 1 tab PO DAILY lurasidone 60 mg Tablet 60 mg PO DAILY Rx Instructions: must administer with food (at least 350 calories) Zestoretic 20-25 mg tablet 2 tab PO DAILY Qty: 60 0RF magnesium oxide 400 mg magnesium tablet 400 mg PO TID Qty: 90 0RF clonidine HCl 0.3 mg tablet 0.3 mg PO Q8H Qty: 90 0RF Discharge Orders: Discharge ED (Routine); Ordered 04/02/23 Ordered By: Jamil Bain Referrals: Patience Watkins MD [Primary Care Provider] - Discharge Diet: Diabetic Discharge Activity: Resume usual activity Patient Instructions: Hypomagnesemia (ED), Diabetic Hyperglycemia (ED), Diabetic Kidney Disease (ED) Activity Restrictions/Additional Instructions: Thank you for visiting the emergency department. You were seen and evaluated for elevated blood sugar. The most likely cause of this is underlying diabetes and noncompliance with proper diet. I will adjust your sliding scale insulin. * BG 150-199: 1 unit bolus Insulin * BG 200-249: 3 units bolus Insulin * BG 250-299: 5 units bolus Insulin * BG 300-349: 7 units bolus Insulin * BG Over 350: 8 units bolus Insulin Please continue your other medications as prescribed. If blood glucose is greater than 400 it is reasonable to give insulin per sliding scale and recheck in 1 hour to reevaluate. Please follow-up with your dimensional engineer and primary care. Return for anything that you are concerned about and feel needs emergency department evaluation. Coding Level of Care Code ED Electrical Maintenance Engineer for Maria R Garrison
[2023-04-02 20:34] LABS: Glucose Point of Care 435 mg/dL (70-110)
[2023-04-02] MEDS: sodium chloride 0.9% 1,000 ML 999 ML IV (20:52)
[2023-04-02 20:57] LABS: Basophils % 0.6 %; Eosinophils # 0.1 10^3/uL (0.0-0.8); Eosinophils % 1.7 %; Hematocrit 25.2 % (42.0-52.0); Hemoglobin 8.2 g/dL (11.7-16.6); Lymphocytes # 1.1 10^3/uL (0.8-4.8); Lymphocytes % 23.7 %; Mean Corpuscular HGB Conc 32.5 g/dL (30.0-36.0); Mean Corpuscular Hemoglobin 29.3 pg (28.0-34.0); Mean Platelet Volume 10.3 fL (7.4-10.4); Monocytes # 0.3 10^3/uL (0.2-0.9); Neutrophils # 3.12 10^3/uL (1.8-7.7); Neutrophils % 66.6 %; Nucleated Red Blood Cells % 0 %; Platelet Count 256 10^3/cmm (130-400); Red Cell Distribution Width 16.1 % (12.1-15.1); White Blood Count 4.7 10^3/uL (4.0-10.0)
[2023-04-02 21:04] LABS: Ketone (Acetest) Serum Negative (Negative)
[2023-04-02 21:08] LABS: Bilirubin Urine Neg (Negative); Blood Urine Neg (Negative); Glucose Urine UA 4+ (Normal); Ketones Urine Negative (Negative); Leukocyte Esterase Urine Negative (Negative); Nitrate Urine Negative (Negative); Protein Urine 1+ (Negative); Specific Gravity, Urine 1.015 (1.005-1.030); Sulfosalicylic Acid Urine Positive (Negative); Urine Appearance Clear (CLEAR); Urine Color Colorless (Yellow); Urobilinogen Urine Neg (Negative); pH Urine 8 (5-7)
[2023-04-02 21:09] LABS: Add Urine Culture? No; Add Urine Microscopic? YES; RBC Urine 0-4 /hpf (0-2)
[2023-04-02 21:13] LABS: Alanine Aminotransferase 20 U/L (0-41); Albumin Level 3.8 g/dL (3.5-5.2); Alkaline Phosphatase 133 U/L (40-130); Anion Gap 14.1 (5-19); Aspartate Amino Transferase 36 U/L (0-40); Blood Urea Nitrogen 49 mg/dL (6-20); Calcium 8.2 mg/dL (8.5-10.5); Carbon Dioxide 29 mmol/L (22-29); Chloride 92 mmol/L (98-107); Globulin 3.2 g/dL (1.3-4.6); Glomerular Filtration Rate 20.9 mL/min (90-130); Glucose 384 mg/dL (65-115); Magnesium 1.3 mg/dL (1.7-2.3); Osmolality Calculated 299 mOsm/kg (285-295); Potassium 5.1 mmol/L (3.5-5.1); Sodium 130 mmol/L (136-145); Total Bilirubin 0.3 mg/dL (0.15-1.2)
[2023-04-02] MEDS: insulin regular-human 100 units/1 mL 10 UNIT IVP (21:17)
[2023-04-02 21:22] VITALS: BP 184/92; O2SAT 99
[2023-04-02 21:36] VITALS: BP 189/91; PULSE 93; RESP 18; O2SAT 98
[2023-04-02] MEDS: magnesium sulfate premix 4 GM/100 ML PREMIX IV (22:00)
[2023-04-02 22:03] LABS: Glucose Point of Care 215 mg/dL (70-110)
[2023-04-02 23:00] LABS: Glucose Point of Care 148 mg/dL (70-110)
[2023-04-02 23:26] VITALS: BP 158/84; PULSE 85; RESP 18; O2SAT 98
== END 2023-04-02 23:32 | disposition home or self-care (01) ==
PROVIDERS: Emergency Provider Emergency Medicine; PCP Family Medicine
DX: E11.65 Type 2 diabetes mellitus with hyperglycemia (principal); Z79.4 Long term (current) use of insulin; Z79.899 Other long term (current) drug therapy
CPT/HCPCS: 36416; 80053; 81001; 82009; 82962; 83735; 85025; 96365; 96375; 99284; J1815; J3475; J7030

== ENCOUNTER 2023-05-09 20:24 | Emergency (ER) | payer MEDICAID, SELFPAY ==
[2023-05-09 20:25] VITALS: BP 156/74; PULSE 90; RESP 16; TEMP 36.7; O2SAT 100; BMI 20.7
--- NOTE | 2023-05-09 20:31 | W.ED.GENADLT ---
HPI - General Adult General: Chief complaint: General Medical Stated complaint: Hyperglycemia Time Seen by Provider: 05/09/23 20:27 History of Present Illness: 52-year-old male patient was brought in by software implementation project manager for being without his NovoLog insulin. Patient supposedly had ran out of medication this evening and his blood glucose was elevated so they brought him to the ER. Patient did receive his dose of Lantus which is only documented at 7 units at bedtime. Patient appears nontoxic. Patient is alert and oriented. Patient has a intellectual disability and mental health disorder along with his chronic diagnosis of hypertension and diabetes mellitus insulin controlled. Review of Systems General: Reports: 10 or more systems reviewed and unremarkable except in HPI and below Endo: Reports: other (Elevated blood glucose) [facility] ED PFSH: Medical History Diabetes Physical Exam Const: COMMON NORMALS: alert HENMT: COMMON NORMALS: normocephalic HEAD & SCALP: normocephalic Neck/C-Spine: COMMON NORMALS: full ROM and no meningeal signs Chest: COMMONS NORMALS: normal inspection of the chest and normal palpation of entire chest wall Resp: COMMON NORMALS: normal respiratory effort Cardio: COMMON NORMALS: regular rate RATE: regular rate Back/Pelvis: COMMON NORMALS: thoracic and lumbar spine normal to inspection Extremity: COMMON NORMALS: normal to inspection Neuro: SENSORIUM/ORIENTATION: Yes alert MENINGEAL SIGNS: Yes no meningeal signs Skin: COMMON NORMALS: turgor normal GENERAL SKIN EXAM: turgor normal Course Vital Signs: Vital signs: Vital Signs Temperature 98.0 F 05/09/23 20:25 Pulse Rate 88 05/09/23 20:42 Respiratory Rate 19 H 05/09/23 20:42 Blood Pressure 156/74 05/09/23 20:42 Pulse Oximetry 99 05/09/23 20:42 Oxygen Delivery Me thod Room Air 05/09/23 20:42 MDM - General Adult Medical Decision Making Patient was unable to get his evening dose of NovoLog insulin due to being out of medication. Lead Technical Architect brought patient in due to the lack of medication and elevated glucose of 570. Patient was given his evening dose of Lantus. On arrival to the emergency department his glucose fingerstick was 480. Respirations were even lungs were clear to auscultation. Skin was warm and dry. Vital signs were normal except for some elevated blood pressure. Differential diagnosis includes but not limited to diabetic ketoacidosis, chronic kidney disease, hyperglycemia. Laboratory values were stable when compared to prior exams. Glucose was 502 on lab. Patient was given 15 units of NovoLog per sliding scale and his usual dose of NovoLog insulin. Patient's blood glucose came down to 388 and he was discharged home with a prescription for renewal of his NovoLog pen and recommendations for follow-up with primary care. Lab Data 05/09/23 21:00 05/09/23 21:00 Laboratory Results WBC 5.1 10^3/uL (4.0-10.0) 05/09/23 21:00 RBC 2.94 10^6/uL (4.1-5.3) L 05/09/23 21:00 Hgb 8.7 g/dL (11.7-16.6) L 05/09/23 21:00 Hct 26.4 % (42.0-52.0) L 05/09/23 21:00 MCV 89.8 fl (80-94) 05/09/23 21:00 MCH 29.6 pg (28.0-34.0) 05/09/23 21:00 MCHC 33.0 g/dL (30.0-36.0) 05/09/23 21:00 RDW 14.2 % (12.1-15.1) 05/09/23 21:00 Plt Count 247 10^3/cmm (130-400) 05/09/23 21:00 MPV 9.9 fL (7.4-10.4) 05/09/23 21:00 Neut % (Auto) 66.7 % 05/09/23 21:00 Lymph % (Auto) 24.2 % 05/09/23 21:00 [place] % (Auto) 6.0 % 05/09/23 21:00 Eos % (Auto) 2.1 % 05/09/23 21:00 Baso % (Auto) 0.6 % 05/09/23 21:00 Neut # (Auto) 3.42 10^3/uL (1.8-7.7) 05/09/23 21:00 Lymph # (Auto) 1.2 10^3/uL (0.8-4.8) 05/09/23 21:00 [place] # (Auto) 0.3 10^3/uL (0.2-0.9) 05/09/23 21:00 Eos # (Auto) 0.1 10^3/uL (0.0-0.8) 05/09/23 21:00 Baso # (Auto) 0.0 10^3/uL (0.0-0.1) 05/09/23 21:00 Nucleated RBC % (auto) 0 % 05/09/23 21:00 Nucleated RBCs # 0.0 /100WBC 05/09/23 21:00 Sodium 128 mmol/L (136-145) L 05/09/23 21:00 Potassium 5.1 mmol/L (3.5-5.1) 05/09/23 21:00 Chloride 91 mmol/L (98-107) L 05/09/23 21:00 Carbon Dioxide 24 mmol/L (22-29) 05/09/23 21:00 Anion Gap 18.1 (5-19) 05/09/23 21:00 BUN 80 mg/dL (6-20) H 05/09/23 21:00 Creatinine 4.5 mg/dL (0.7-1.2) H 05/09/23 21:00 GFR Calculation 16.7 mL/min (90-130) L 05/09/23 21:00 Glucose 502 mg/dL (65-115) H* 05/09/23 21:00 POC Glucose 388 mg/dL (70-110) H 05/09/23 21:39 Calculated Osmolality 312 mOsm/kg (285-295) H 05/09/23 21:00 Calcium 8.0 mg/dL (8.5-10.5) L 05/09/23 21:00 Total Bilirubin 0.2 mg/dL (0.15-1.2) 05/09/23 21:00 AST 40 U/L (0-40) 05/09/23 21:00 ALT 26 U/L (0-41) 05/09/23 21:00 Alkaline Phosphatase 116 U/L (40-130) 05/09/23 21:00 Total Protein 7.0 g/dL (6.6-8.7) 05/09/23 21:00 Albumin 3.9 g/dL (3.5-5.2) 05/09/23 21:00 Globulin 3.1 g/dL (1.3-4.6) 05/09/23 21:00 Discharge Plan Discharge Patient Disposition: Home Clinical Impression: Hyperglycemia due to diabetes mellitus CKD (chronic kidney disease) Qualifiers: Chronic kidney disease stage: stage 4 (severe) Qualified Code(s): N18.4 - Chronic kidney disease, stage 4 (severe) Condition: Stable Prescriptions: Changed Novolog FlexPen U-100 Insulin 100 unit/mL (3 mL) Insulin Pen 15 unit SUBCUT QID Qty: 15 0RF Rx Instructions: per sliding scale No Action carvedilol 25 mg Tablet 25 mg PO BID Rx Instructions: must administer with a meal/food atorvastatin 10 mg Tablet 10 mg PO QPM carbamazepine 200 mg Tablet 200 mg PO TID aspirin 325 mg tablet,delayed release (DR/EC) 325 mg PO DAILY amlodipine 10 mg Tablet 10 mg PO DAILY pantoprazole 40 mg Tablet,Delayed Release (Dr/Ec) 40 mg PO DAILY ferrous sulfate 325 mg (65 mg iron) Tablet 325 mg PO DAILY TRUEplus Glucose 4 gram tablet,chewable 4 g PO DAILY PRN (Reason: blood sugar) benztropine 1 mg Tablet 1 mg PO BID gabapentin 300 mg Capsule 300 mg PO TID albuterol sulfate 90 mcg/actuation Hfa Aerosol Inhaler 2 puff INHALATION 6XD PRN (Reason: Shortness Of Breath Or Wheezing) aripiprazole 20 mg Tablet 20 mg PO DAILY fenofibrate 160 mg Tablet 160 mg PO DAILY Tylenol 325 mg Capsule 650 mg PO Q4H PRN (Reason: Pain) Lantus Solostar U-100 Insulin 100 unit/mL (3 mL) Insulin Pen 5 unit SUBCUT QPM multivitamin with folic acid [Daily-Sean (with folic acid)] 400 mcg tablet 1 tab PO DAILY lurasidone 60 mg Tablet 60 mg PO DAILY Rx Instructions: must administer with food (at least 350 calories) Zestoretic 20-25 mg tablet 2 tab PO DAILY Qty: 60 0RF magnesium oxide 400 mg magnesium tablet 400 mg PO TID Qty: 90 0RF clonidine HCl 0.3 mg tablet 0.3 mg PO Q8H Qty: 90 0RF Discharge Orders: Discharge ED (Routine); Ordered 05/09/23 Ordered By: Thony Cr Referrals: Patience Watkins MD [Primary Care Provider] - Patient Instructions: Diabetic Hyperglycemia (ED) Activity Restrictions/Additional Instructions: Continue with routine medications and care plan. Follow-up with primary care for further instructions. Return to ED for new concerns. Coding Level of Care Code ED Technical Supervisor for Maria R Garrison
[2023-05-09 20:42] VITALS: BP 156/74; PULSE 88; RESP 19; O2SAT 99
[2023-05-09 20:49] LABS: Glucose Point of Care 484 mg/dL (70-110)
[2023-05-09] MEDS: insulin lispro 100 unit/1 mL 15 UNIT SUBCUT (20:51)
[2023-05-09 21:12] LABS: Basophils % 0.6 %; Eosinophils # 0.1 10^3/uL (0.0-0.8); Eosinophils % 2.1 %; Hematocrit 26.4 % (42.0-52.0); Hemoglobin 8.7 g/dL (11.7-16.6); Lymphocytes # 1.2 10^3/uL (0.8-4.8); Lymphocytes % 24.2 %; Mean Corpuscular Hemoglobin 29.6 pg (28.0-34.0); Mean Corpuscular Volume 89.8 fl (80-94); Mean Platelet Volume 9.9 fL (7.4-10.4); Monocytes # 0.3 10^3/uL (0.2-0.9); Neutrophils # 3.42 10^3/uL (1.8-7.7); Neutrophils % 66.7 %; Nucleated Red Blood Cells % 0 %; Platelet Count 247 10^3/cmm (130-400); Red Blood Count 2.94 10^6/uL (4.1-5.3); Red Cell Distribution Width 14.2 % (12.1-15.1); White Blood Count 5.1 10^3/uL (4.0-10.0)
[2023-05-09 21:37] LABS: Alanine Aminotransferase 26 U/L (0-41); Albumin Level 3.9 g/dL (3.5-5.2); Alkaline Phosphatase 116 U/L (40-130); Anion Gap 18.1 (5-19); Aspartate Amino Transferase 40 U/L (0-40); Blood Urea Nitrogen 80 mg/dL (6-20); Carbon Dioxide 24 mmol/L (22-29); Chloride 91 mmol/L (98-107); Globulin 3.1 g/dL (1.3-4.6); Glomerular Filtration Rate 16.7 mL/min (90-130); Osmolality Calculated 312 mOsm/kg (285-295); Potassium 5.1 mmol/L (3.5-5.1); Sodium 128 mmol/L (136-145); Total Bilirubin 0.2 mg/dL (0.15-1.2)
[2023-05-09 21:41] LABS: Glucose 502 mg/dL (65-115)
[2023-05-09 21:45] LABS: Glucose Point of Care 388 mg/dL (70-110)
[2023-05-09 22:09] VITALS: BP 146/70; PULSE 94; O2SAT 98
== END 2023-05-09 22:11 | disposition home or self-care (01) ==
PROVIDERS: Emergency Provider Nurse Practitioner Family; PCP Family Medicine
DX: E11.65 Type 2 diabetes mellitus with hyperglycemia (principal); I12.9 Hypertensive chronic kidney disease with stage 1 through stage 4 chronic kidney disease, or unspecified chronic kidney disease; N18.4 Chronic kidney disease, stage 4 (severe); E11.22 Type 2 diabetes mellitus with diabetic chronic kidney disease; Z79.4 Long term (current) use of insulin
CPT/HCPCS: 36415; 36416; 80053; 82962; 85025; 96372; 99284; J1815

== ENCOUNTER 2023-05-15 21:32 | Emergency (ER) | payer MEDICAID, SELFPAY ==
[2023-05-15 21:38] VITALS: BP 165/79; PULSE 93; RESP 18; TEMP 36.7; O2SAT 100; BMI 25.1
--- NOTE | 2023-05-15 21:39 | ECG_ITS ---
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 Measurements Intervals [place] Rate: 92 P: 67 PA: 188 QRS: -42 QRSD: 122 T: 19 QT: 395 QTc: 489 Interpretive Statements SINUS RHYTHM LEFT AXIS DEVIATION [QRS AXIS < -30] MINIMAL VOLTAGE CRITERIA FOR LVH, CONSIDER NORMAL VARIANT [MEETS CRITERIA IN ONE OF: R(aVL), S(V1), R(V5), R(V5/V6)+S(V1)] SEPTAL MYOCARDIAL INFARCTION , OF INDETERMINATE AGE [40+ ms Q WAVE IN V1/V2] Compared to ECG 03/30/2023 14:26:44 Left-axis deviation now present Supraventricular tachycardia no longer present Myocardial infarct finding still present Electronically Signed On 05-16-2023 14:42:24 CDT by Greyson Longo M.D. [id number]
--- NOTE | 2023-05-15 21:45 | XRR_ITS ---
PROCEDURE INFORMATION: Exam: XR Chest Exam date and time: 05/15/2023 10:08 PM Age: 52 years old Clinical indication: Pain; Angina pectoris; Additional info: Chest pain TECHNIQUE: Imaging protocol: Radiologic exam of the chest. Views: 1 view. COMPARISON: CR XR chest 1V portable [id number] 03/30/2023 4:49 PM FINDINGS: Lungs: Mild pulmonary vascular congestion. Pleural spaces: Unremarkable. No pleural effusion. No pneumothorax. Heart/Mediastinum: Cardiomegaly. Bones/joints: Unremarkable. XR/XR chest 1V portable [id number] IMPRESSION: 1. Cardiomegaly. 2. Mild pulmonary vascular congestion.
[2023-05-15 21:50] LABS: Basophils % 0.3 %; Eosinophils # 0.2 10^3/uL (0.0-0.8); Eosinophils % 2.5 %; Hematocrit 27.6 % (42.0-52.0); Lymphocytes # 1.5 10^3/uL (0.8-4.8); Lymphocytes % 24.8 %; Mean Corpuscular HGB Conc 32.6 g/dL (30.0-36.0); Mean Platelet Volume 10.7 fL (7.4-10.4); Monocytes # 0.3 10^3/uL (0.2-0.9); Monocytes % 5.3 %; Neutrophils # 4.03 10^3/uL (1.8-7.7); Neutrophils % 66.9 %; Nucleated Red Blood Cells % 0 %; Platelet Count 267 10^3/cmm (130-400); Red Cell Distribution Width 13.7 % (12.1-15.1)
[2023-05-15] MEDS: aspirin 81 mg Chew Tablet 324 MG PO (21:58)
[2023-05-15 22:10] LABS: Alanine Aminotransferase 25 U/L (0-41); Albumin Level 4.2 g/dL (3.5-5.2); Alkaline Phosphatase 128 U/L (40-130); Anion Gap 20.1 (5-19); Aspartate Amino Transferase 40 U/L (0-40); Blood Urea Nitrogen 74 mg/dL (6-20); Calcium 8.8 mg/dL (8.5-10.5); Carbon Dioxide 22 mmol/L (22-29); Chloride 93 mmol/L (98-107); Globulin 2.8 g/dL (1.3-4.6); Glomerular Filtration Rate 16.7 mL/min (90-130); Glucose 193 mg/dL (65-115); Osmolality Calculated 299 mOsm/kg (285-295); Potassium 4.1 mmol/L (3.5-5.1); Sodium 131 mmol/L (136-145); Total Bilirubin 0.2 mg/dL (0.15-1.2)
[2023-05-15 22:14] VITALS: BP 166/77; PULSE 90
[2023-05-15] MEDS: nitroglycerin 1 gm/inch oint Pkt 0.5 INCH TOPICAL (22:14)
[2023-05-15 22:26] LABS: D Dimer 0.53 ug/mIFEU (0-0.59)
[2023-05-15 22:28] LABS: Troponin(5th) Baseline 60 ng/L (0-15)
[2023-05-15 23:15] VITALS: BP 146/93; PULSE 89; RESP 16; O2SAT 100
[2023-05-15 23:50] VITALS: BP 139/70; PULSE 86; RESP 16; O2SAT 100
[2023-05-16 00:04] LABS: Troponin 5 2HR 57.24 ng/L (0-15)
[2023-05-16 00:05] LABS: Troponin 5 2HR Delta -2.76 ABS# (0-10)
--- NOTE | 2023-05-16 00:36 | W.ED.CHESTPA ---
HPI - Chest Pain General: Chief Complaint: Chest Pain Stated Complaint: CP Time Seen by Provider: 05/15/23 21:41 History of Present Illness: 52-year-old -Stateless male with complex medical history including diabetes, hyperlipidemia, asthma, chronic renal insufficiency, Down syndrome and GERD. Patient was brought to emergency room by utility operator due to chest pain. According to the utility operator, patient had a chest pain off and on all day today but noticed increased pain prior to coming to the emergency room. Patient described the pain as sharp sensation mostly on the left side of his chest. Pain is nonradiating. Associated symptoms: Deny dyspnea or fever(s) Review of Systems General: Reports: 10 or more systems reviewed and unremarkable except in HPI and below Const: Denies: fever(s), chills, body aches, change in appetite, malaise or night sweats Card: Reports: chest pain Resp: Denies: dyspnea, productive cough, non-productive cough, pain on inspiration, change in phlegm color or hemoptysis PFS ED PFSH: Medical History Diabetes Physical Exam Const: COMMON NORMALS: no acute distress, average body habitus, patient oriented x3, no limitations, healthy appearing, alert and well nourished Eye: COMMON NORMALS: Equal, round and reactive pupils present, EOMs intact bilaterally, conjunctivae normal, no scleral icterus, no papilledema, normal visual moraes by confrontation and fundi normal bilaterally CONJUNCTIVA: Yes conjunctivae normal PUPIL: Yes Equal, round and reactive pupils present DIRECT OPHTHALMOSCOPY: Yes no papilledema and Yes fundi normal bilaterally Neck/C-Spine: COMMON NORMALS: no JVD Chest: COMMONS NORMALS: normal inspection of the chest, normal palpation of entire chest wall, normal inspection of the breasts and normal palpation of the breasts Breast/axilla inspection: Yes normal inspection of the breasts BREAST/AXILLA PALPATION: Yes normal palpation of the breasts OTHER: Some tenderness upon palpation along the left side of his chest Resp: COMMON NORMALS: normal respiratory effort, No retractions, No use of accessory muscles, clear to auscultation bilaterally and percussion normal AUSCULTATION: clear to auscultation bilaterally PERCUSSION: percussion normal Cardio: COMMON NORMALS: no JVD, regular rate, regular rhythm, S1 normal heart sound present, S2 normal heart sound present, No gallops present (Cardio), No clicks present (Cardio), No murmurs present (Cardio), No rub (Cardio) and Peripheral pulses 2+ throughout RATE: regular rate RHYTHM: regular rhythm HEART SOUNDS: S1 normal heart sound present and S2 normal heart sound present PERIPHERAL PULSES: Peripheral pulses 2+ throughout Neuro: COMMON NORMALS: patient oriented x3 SENSORIUM/ORIENTATION: Yes alert Skin: COMMON NORMALS: no rashes or lesions noted, no wounds, turgor normal, no jaundice, no petechiae and no mottling GENERAL SKIN EXAM: no rashes or lesions noted and turgor normal Course Reevaluation(s): Reevaluation #1: Upon reexamination patient was resting comfortably no acute distress. He is currently pain-free after nitro. Discussed plan with the utility operator at bedside. Consultations: Consultation #1: I discussed patient with hospitalist Dr. Lima. Given for the patient's troponin was trending downwards instead of upwards and no acute EKG findings we both agree the patient can be discharged home with outpatient follow-up with boom supervisor. Patient was provided with boom supervisor information Vital Signs: Vital signs: Vital Signs Temperature 98.1 F 05/16/23 01:08 Pulse Rate 79 05/16/23 01:08 Respiratory Rate 16 05/16/23 01:08 Blood Pressure 123/64 05/16/23 01:08 Pulse Oximetry 97 05/16/23 01:08 Oxygen Delivery Me thod Room Air 05/15/23 21:38 MDM - Chest Pain Medical Decision Making Patient was made comfortable emergency room. Patient had extensive work-up done including CBC, CMP, troponin x2, EKG and chest x-ray. Patient was given aspirin and Nitropaste. Again, discussed patient with utility operator as per plan current treatment. Differential Diagnosis Likely acute massive pulmonary embolism, acute respiratory failure, acute myocardial infarction, cardiac arrest and sudden cardiac Lab Data 05/15/23 21:43 05/15/23 21:43 Radiology Impressions Chest X-Ray 05/15/23 21:45 IMPRESSION: 1. Cardiomegaly. 2. Mild pulmonary vascular congestion. Laboratory Results WBC 6.0 10^3/uL (4.0-10.0) 05/15/23 21:43 RBC 3.10 10^6/uL (4.1-5.3) L 05/15/23 21:43 Hgb 9.0 g/dL (11.7-16.6) L 05/15/23 21:43 Hct 27.6 % (42.0-52.0) L 05/15/23 21:43 MCV 89.0 fl (80-94) 05/15/23 21:43 MCH 29.0 pg (28.0-34.0) 05/15/23 21:43 MCHC 32.6 g/dL (30.0-36.0) 05/15/23 21:43 RDW 13.7 % (12.1-15.1) 05/15/23 21:43 Plt Count 267 10^3/cmm (130-400) 05/15/23 21:43 MPV 10.7 fL (7.4-10.4) H 05/15/23 21:43 Neut % (Auto) 66.9 % 05/15/23 21:43 Lymph % (Auto) 24.8 % 05/15/23 21:43 [place] % (Auto) 5.3 % 05/15/23 21:43 Eos % (Auto) 2.5 % 05/15/23 21:43 Baso % (Auto) 0.3 % 05/15/23 21:43 Neut # (Auto) 4.03 10^3/uL (1.8-7.7) 05/15/23 21:43 Lymph # (Auto) 1.5 10^3/uL (0.8-4.8) 05/15/23 21:43 [place] # (Auto) 0.3 10^3/uL (0.2-0.9) 05/15/23 21:43 Eos # (Auto) 0.2 10^3/uL (0.0-0.8) 05/15/23 21:43 Baso # (Auto) 0.0 10^3/uL (0.0-0.1) 05/15/23 21:43 Nucleated RBC % (auto) 0 % 05/15/23 21:43 Nucleated RBCs # 0.0 /100WBC 05/15/23 21:43 D-Dimer 0.53 ug/mIFEU (0-0.59) 05/15/23 22:05 Sodium 131 mmol/L (136-145) L 05/15/23 21:43 Potassium 4.1 mmol/L (3.5-5.1) 05/15/23 21:43 Chloride 93 mmol/L (98-107) L 05/15/23 21:43 Carbon Dioxide 22 mmol/L (22-29) 05/15/23 21:43 Anion Gap 20.1 (5-19) H 05/15/23 21:43 BUN 74 mg/dL (6-20) H 05/15/23 21:43 Creatinine 4.5 mg/dL (0.7-1.2) H 05/15/23 21:43 GFR Calculation 16.7 mL/min (90-130) L 05/15/23 21:43 Glucose 193 mg/dL (65-115) H 05/15/23 21:43 Calculated Osmolality 299 mOsm/kg (285-295) H 05/15/23 21:43 Calcium 8.8 mg/dL (8.5-10.5) 05/15/23 21:43 Total Bilirubin 0.2 mg/dL (0.15-1.2) 05/15/23 21:43 AST 40 U/L (0-40) 05/15/23 21:43 ALT 25 U/L (0-41) 05/15/23 21:43 Alkaline Phosphatase 128 U/L (40-130) 05/15/23 21:43 Troponin T Baseline 60 ng/L (0-15) H 05/15/23 22:05 Troponin T 120 Minute 57.24 ng/L (0-15) H 05/15/23 23:45 Delta Troponin T -2.76 ABS# (0-10) L 05/15/23 23:45 Total Protein 7.0 g/dL (6.6-8.7) 05/15/23 21:43 Albumin 4.2 g/dL (3.5-5.2) 05/15/23 21:43 Globulin 2.8 g/dL (1.3-4.6) 05/15/23 21:43 EKG Data EKG 1: Interpretation: Sinus rhythm rate of [address] changes. KS interval 188 QTc 395. Discharge Plan Discharge Patient Disposition: Home Clinical Impression: CKD (chronic kidney disease), Chest pain Condition: Stable Prescriptions: No Action carvedilol 25 mg Tablet 25 mg PO BID Rx Instructions: must administer with a meal/food atorvastatin 10 mg Tablet 10 mg PO QPM carbamazepine 200 mg Tablet 200 mg PO TID aspirin 325 mg tablet,delayed release (DR/EC) 325 mg PO DAILY amlodipine 10 mg Tablet 10 mg PO DAILY pantoprazole 40 mg Tablet,Delayed Release (Dr/Ec) 40 mg PO DAILY ferrous sulfate 325 mg (65 mg iron) Tablet 325 mg PO DAILY TRUEplus Glucose 4 gram tablet,chewable 4 g PO DAILY PRN (Reason: blood sugar) benztropine 1 mg Tablet 1 mg PO BID gabapentin 300 mg Capsule 300 mg PO TID albuterol sulfate 90 mcg/actuation Hfa Aerosol Inhaler 2 puff INHALATION 6XD PRN (Reason: Shortness Of Breath Or Wheezing) aripiprazole 20 mg Tablet 20 mg PO DAILY fenofibrate 160 mg Tablet 160 mg PO DAILY Tylenol 325 mg Capsule 650 mg PO Q4H PRN (Reason: Pain) Lantus Solostar U-100 Insulin 100 unit/mL (3 mL) Insulin Pen 5 unit SUBCUT QPM multivitamin with folic acid [Daily-Sean (with folic acid)] 400 mcg tablet 1 tab PO DAILY lurasidone 60 mg Tablet 60 mg PO DAILY Rx Instructions: must administer with food (at least 350 calories) Zestoretic 20-25 mg tablet 2 tab PO DAILY Qty: 60 0RF magnesium oxide 400 mg magnesium tablet 400 mg PO TID Qty: 90 0RF clonidine HCl 0.3 mg tablet 0.3 mg PO Q8H Qty: 90 0RF Novolog FlexPen U-100 Insulin 100 unit/mL (3 mL) Insulin Pen 15 unit SUBCUT QID Qty: 15 0RF Rx Instructions: per sliding scale Discharge Orders: Discharge ED (Routine); Ordered 05/16/23 Ordered By: Forrest Moise Referrals: Patience Watkins MD [Primary Care Provider] - Greyson oLngo MD [Physician] - 4-7 days Discharge Diet: Advance as tolerated Discharge Activity: Resume usual activity Patient Instructions: Opioid Safety, Pain Management Coding Level of Care Code ED Customer Service Rep for Maria R Garrison
[2023-05-16 00:57] VITALS: BP 123/64; PULSE 79; RESP 16; O2SAT 97
[2023-05-16 01:08] VITALS: BP 123/64; PULSE 79; RESP 16; TEMP 36.7; O2SAT 97
== END 2023-05-16 01:09 | disposition home or self-care (01) ==
PROVIDERS: Emergency Provider Family Medicine; PCP Family Medicine
DX: N18.9 Chronic kidney disease, unspecified (principal); R07.9 Chest pain, unspecified
CPT/HCPCS: 71045; 80053; 84484; 85025; 85378; 93005; 99285

== ENCOUNTER 2023-05-23 15:19 | Emergency (ER) | payer MEDICAID, SELFPAY ==
[2023-05-23 15:24] VITALS: BP 113/59; PULSE 71; TEMP 36.9; O2SAT 100
[2023-05-23 15:56] LABS: Glucose Point of Care 164 mg/dL (70-110)
[2023-05-23 16:07] LABS: Basophils % 0.3 %; Eosinophils # 0.1 10^3/uL (0.0-0.8); Eosinophils % 1.3 %; Hematocrit 25.6 % (37-53); Lymphocytes # 2.3 10^3/uL (0.8-4.8); Lymphocytes % 32.8 %; Mean Corpuscular HGB Conc 33.6 g/dL (30-55); Mean Corpuscular Hemoglobin 29.6 pg (27-33); Mean Platelet Volume 10.7 fL (7.4-10.4); Monocytes # 0.5 10^3/uL (0.2-0.9); Monocytes % 7.7 %; Neutrophils # 4.05 10^3/uL (1.8-7.7); Neutrophils % 57.5 %; Nucleated Red Blood Cells % 0 %; Platelet Count 295 10^3/cmm (157-399); Red Blood Count 2.91 10^6/uL (3.85-5.65); Red Cell Distribution Width 13.8 % (12.1-15.1); White Blood Count 7.04 10^3/uL (3.29-11.43)
--- NOTE | 2023-05-23 16:11 | ED_ITS ---
HPI - Recheck/Abnormal Lab/Rx General: Chief Complaint: Recheck/Abnormal Lab/Rx Stated Complaint: Low blood Sugar Time Seen by Provider: 05/23/23 15:52 History of Present Illness: Presented to the ER by EMS with complaints of low blood sugar and passing out. Patient was being seen over at [facility] for his behaviors when he went syncopal I lowered him to the floor. They thought this was one of his behaviors until he would not get up and he checked his blood sugar and was 43. His caregiver says he ate a bowl of oats about 130 they checked his blood sugar an hour after that it was 180 and then an hour after that was in the clinic and it was 43. Patient was given some D10 and oral glucose per EMS and arrived here with a blood sugar that was approximately 179. Review of Systems General: Reports: 10 or more systems reviewed and unremarkable except in HPI and below PFSH ED PFSH: Medical History Diabetes Physical Exam Const: COMMON NORMALS: no acute distress, average body habitus, no limitations, healthy appearing, alert and well nourished HENMT: COMMON NORMALS: normocephalic, hearing grossly normal bilaterally, external ears normal, Normal external nose present and moist oral mucous membranes HEAD & SCALP: normocephalic NOSE: Normal external nose present EXTERNAL EAR: Yes external ears normal Neck/C-Spine: COMMON NORMALS: no JVD Chest: COMMONS NORMALS: normal inspection of the chest and normal palpation of entire chest wall Resp: COMMON NORMALS: normal respiratory effort, No retractions, No use of accessory muscles and clear to auscultation bilaterally AUSCULTATION: clear to auscultation bilaterally Cardio: COMMON NORMALS: no JVD, regular rate, regular rhythm, S1 normal heart sound present, S2 normal heart sound present, No gallops present (Cardio), No clicks present (Cardio), No murmurs present (Cardio) and No rub (Cardio) RATE: regular rate RHYTHM: regular rhythm HEART SOUNDS: S1 normal heart sound present and S2 normal heart sound present GI: COMMON NORMALS: Normal to inspection, nondistended, normoactive bowel sounds present, Soft to palpation, non-tender, No hepatosplenomegaly present and no masses PALPATION: Yes Soft to palpation and Yes No hepatosplenomegaly present : COMMON NORMALS: Yes no CVA tenderness BLADDER/KIDNEY EXAM: Yes no CVA tenderness Back/Pelvis: COMMON NORMALS: no CVA tenderness Neuro: SENSORIUM/ORIENTATION: Yes alert Course Vital Signs: Vital signs: Vital Signs Temperature 98.4 F 05/23/23 15:24 Pulse Rate 70 05/23/23 17:21 Blood Pressure 114/73 05/23/23 17:21 Pulse Oximetry 96 05/23/23 17:21 Oxygen Delivery Me thod Room Air 05/23/23 17:21 MDM - Recheck/Abnormal Lab/Rx Medical Decision Making Presented to the ER with low blood sugar. Patient was given some D10 and oral glucose and raise it up to about 179. Patient had labs drawn which are pending. Anticipate patient be discharged back to his [facility]. Differential Diagnosis Likely encounter for medication refill Medical Records I reviewed the patient's medical records. Lab Data 05/23/23 15:15 05/23/23 15:15 Laboratory Results WBC 7.04 10^3/uL (3.29-11.43) 05/23/23 15:15 RBC 2.91 10^6/uL (3.85-5.65) L 05/23/23 15:15 Hgb 8.60 g/dL (11.27-16.99) L 05/23/23 15:15 Hct 25.6 % (37-53) L 05/23/23 15:15 MCV 88.0 fl (82-101) 05/23/23 15:15 MCH 29.6 pg (27-33) 05/23/23 15:15 MCHC 33.6 g/dL (30-55) 05/23/23 15:15 RDW 13.8 % (12.1-15.1) 05/23/23 15:15 Plt Count 295 10^3/cmm (157-399) 05/23/23 15:15 MPV 10.7 fL (7.4-10.4) H 05/23/23 15:15 Neut % (Auto) 57.5 % 05/23/23 15:15 Lymph % (Auto) 32.8 % 05/23/23 15:15 [place] % (Auto) 7.7 % 05/23/23 15:15 Eos % (Auto) 1.3 % 05/23/23 15:15 Baso % (Auto) 0.3 % 05/23/23 15:15 Neut # (Auto) 4.05 10^3/uL (1.8-7.7) 05/23/23 15:15 Lymph # (Auto) 2.3 10^3/uL (0.8-4.8) 05/23/23 15:15 [place] # (Auto) 0.5 10^3/uL (0.2-0.9) 05/23/23 15:15 Eos # (Auto) 0.1 10^3/uL (0.0-0.8) 05/23/23 15:15 Baso # (Auto) 0.0 10^3/uL (0.0-0.1) 05/23/23 15:15 Nucleated RBC % (auto) 0 % 05/23/23 15:15 Nucleated RBCs # 0.0 /100WBC 05/23/23 15:15 Sodium 130 mmol/L (136-145) L 05/23/23 15:15 Potassium 4.1 mmol/L (3.5-5.1) 05/23/23 15:15 Chloride 91 mmol/L (98-107) L 05/23/23 15:15 Carbon Dioxide 23 mmol/L (22-29) 05/23/23 15:15 Anion Gap 20.1 (5-19) H 05/23/23 15:15 BUN 82 mg/dL (6-20) H* 05/23/23 15:15 Creatinine 5.2 mg/dL (0.7-1.2) H 05/23/23 15:15 GFR Calculation 14.1 mL/min (90-130) L 05/23/23 15:15 Glucose 31 mg/dL (65-115) L* 05/23/23 15:15 POC Glucose 72 mg/dL (70-110) 05/23/23 16:43 Calculated Osmolality 291 mOsm/kg (285-295) 05/23/23 15:15 Calcium 9.0 mg/dL (8.5-10.5) 05/23/23 15:15 Total Bilirubin 0.2 mg/dL (0.15-1.2) 05/23/23 15:15 AST 50 U/L (0-40) H 05/23/23 15:15 ALT 23 U/L (0-41) 05/23/23 15:15 Alkaline Phosphatase 96 U/L (40-130) 05/23/23 15:15 Total Protein 7.2 g/dL (6.6-8.7) 05/23/23 15:15 Albumin 4.3 g/dL (3.5-5.2) 05/23/23 15:15 Globulin 2.9 g/dL (1.3-4.6) 05/23/23 15:15 Discharge Plan Discharge Patient Disposition: Home Clinical Impression: Hypoglycemia due to insulin Condition: Stable Prescriptions: No Action carvedilol 25 mg Tablet 25 mg PO BID Rx Instructions: must administer with a meal/food atorvastatin 10 mg Tablet 10 mg PO QPM carbamazepine 200 mg Tablet 200 mg PO TID aspirin 325 mg tablet,delayed release (DR/EC) 325 mg PO DAILY amlodipine 10 mg Tablet 10 mg PO DAILY pantoprazole 40 mg Tablet,Delayed Release (Dr/Ec) 40 mg PO DAILY ferrous sulfate 325 mg (65 mg iron) Tablet 325 mg PO DAILY TRUEplus Glucose 4 gram tablet,chewable 4 g PO DAILY PRN (Reason: blood sugar) benztropine 1 mg Tablet 1 mg PO BID gabapentin 300 mg Capsule 300 mg PO TID albuterol sulfate 90 mcg/actuation Hfa Aerosol Inhaler 2 puff INHALATION 6XD PRN (Reason: Shortness Of Breath Or Wheezing) aripiprazole 20 mg Tablet 20 mg PO DAILY fenofibrate 160 mg Tablet 160 mg PO DAILY Tylenol 325 mg Capsule 650 mg PO Q4H PRN (Reason: Pain) Lantus Solostar U-100 Insulin 100 unit/mL (3 mL) Insulin Pen 5 unit SUBCUT QPM multivitamin with folic acid [Daily-Sean (with folic acid)] 400 mcg tablet 1 tab PO DAILY lurasidone 60 mg Tablet 60 mg PO DAILY Rx Instructions: must administer with food (at least 350 calories) Zestoretic 20-25 mg tablet 2 tab PO DAILY Qty: 60 0RF magnesium oxide 400 mg magnesium tablet 400 mg PO TID Qty: 90 0RF clonidine HCl 0.3 mg tablet 0.3 mg PO Q8H Qty: 90 0RF Novolog FlexPen U-100 Insulin 100 unit/mL (3 mL) Insulin Pen 15 unit SUBCUT QID Qty: 15 0RF Rx Instructions: per sliding scale Discharge Orders: Discharge ED (Routine); Ordered 05/23/23 Ordered By: Heladio Anthony Referrals: Patience Watkins MD [Primary Care Provider] - 1 week Patient Instructions: Hypoglycemia in a Person with Diabetes (ED) Coding Level of Care Code ED Still Worker Helper for Maria R Garrison
[2023-05-23 16:27] LABS: Alanine Aminotransferase 23 U/L (0-41); Albumin Level 4.3 g/dL (3.5-5.2); Alkaline Phosphatase 96 U/L (40-130); Anion Gap 20.1 (5-19); Aspartate Amino Transferase 50 U/L (0-40); Carbon Dioxide 23 mmol/L (22-29); Chloride 91 mmol/L (98-107); Globulin 2.9 g/dL (1.3-4.6); Glomerular Filtration Rate 14.1 mL/min (90-130); Osmolality Calculated 291 mOsm/kg (285-295); Potassium 4.1 mmol/L (3.5-5.1); Sodium 130 mmol/L (136-145); Total Bilirubin 0.2 mg/dL (0.15-1.2); Total Protein 7.2 g/dL (6.6-8.7)
[2023-05-23 16:36] LABS: Blood Urea Nitrogen 82 mg/dL (6-20); Glucose 31 mg/dL (65-115)
[2023-05-23 16:45] LABS: Glucose Point of Care 72 mg/dL (70-110)
[2023-05-23 17:21] VITALS: BP 114/73; PULSE 70; O2SAT 96
== END 2023-05-23 17:25 | disposition home or self-care (01) ==
PROVIDERS: Emergency Provider Emergency Medicine; PCP Family Medicine
DX: E11.649 Type 2 diabetes mellitus with hypoglycemia without coma (principal); T38.3X5A Adverse effect of insulin and oral hypoglycemic [antidiabetic] drugs, initial encounter; Z79.82 Long term (current) use of aspirin; Z79.4 Long term (current) use of insulin
CPT/HCPCS: 36416; 80053; 82962; 85025; 99283

== ENCOUNTER → 2023-07-18 12:38 | Outpatient (BNVA) | payer MEDICAID, SELFPAY | PROVIDERS: PCP Family Medicine; Visit Provider Internal Medicine | DX: R07.9 Chest pain, unspecified (principal); I44.0 Atrioventricular block, first degree; E11.22 Type 2 diabetes mellitus with diabetic chronic kidney disease; N18.9 Chronic kidney disease, unspecified; E11.9 Type 2 diabetes mellitus without complications; I44.7 Left bundle-branch block, unspecified; F17.200 Nicotine dependence, unspecified, uncomplicated | CPT/HCPCS: 93005; 99204 ==

== ENCOUNTER → 2023-07-31 10:29 | Outpatient (BNVA) | payer MEDICAID, SELFPAY | PROVIDERS: PCP Family Medicine; Visit Provider Internal Medicine | DX: E11.9 Type 2 diabetes mellitus without complications (principal); E78.2 Mixed hyperlipidemia; Z79.4 Long term (current) use of insulin | CPT/HCPCS: 99204 ==

== ENCOUNTER 2023-09-06 08:24 | Outpatient (CLI) | payer MEDICAID, SELFPAY ==
[2023-09-06 08:31] VITALS: BMI 22.6
--- NOTE | 2023-09-06 08:36 | ECG_ITS ---
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 Interpretive Statements NAME OF STUDY: LEXISCAN SESTAMIBI STRESS TEST INDICATION: [Chest Pain; Shortness of Breath] Procedure: At the baseline, the blood pressure was 162/76 mmHg with a heart rate of 71 bpm. The electrocardiogram showed normal sinus rhythm, normal axis with interventricular conduction delay and T wave inversions in inferior leads and V5-v6.. The Lexiscan was infused over a period of 20 seconds. A total of 0.4 mg of Lexiscan was infused. The stress phase was continued for a total of 5 minutes. Heart rate was at the end of stress phase was 89 bpm and a blood pressure of 147/66 mmHg. The EKG at the peak infusion revealed normal sinus rhythm with no significant ST-T wave changes from baseline. Sestamibi was injected 20 seconds after the Lexiscan infusion. Blood pressure at the end of recovery phase was 152/74 mmHg with a heart rate of 89 bpm. Conclusion: 1. Normal EKG response to Lexiscan infusion 2. No Lexiscan induced chest pain or cardiac arrhythmia. 3. Normal blood pressure and heart rate response. 4. Sestamibi/sestamibi perfusion scan pending; see separate report. Electronically Signed On 09-12-2023 14:12:05 FARM EQUIPMENT MECHANIC APPRENTICE by Izaiah Reyna M.D. [email or web address]
--- NOTE | 2023-09-06 08:37 | NMCV_ITS ---
NM anatoly perf SPECT r/s* [id number] Tyrese Leach Age: 53 Gender: M : 1970 Exam Date: 09/06/2023 09:50 Ordering Phys: Izaiah Reyna M.D ([email or web address]) Technologist: SOSA Mcneill Exam Location: [facility] Indications: CHEST PAIN, SHORTNESS OF BREATH STRESS TEST Please [facility] IMAGE PROTOCOL Rest/Stress 1 Lexiscan Day Radiopharmaceutical Dose (mCi) Administration Site Administered by Rest: Tc-99m 10.9 IV SOSA Mcneill Sestamibi Stress:Tc-99m 32.1 IV SOSA Parry Sestamibi Rest: 06-Sep-2023 60 Discovery 630 Stress: 06-Sep-2023 30 Discovery 630 0.4mg Lexiscan. Supine position only as patient was unable to lay prone. SPECT RESULTS Technical Quality: Excellent Raw Data Analysis: Normal Image Corrections: No attenuation or motion correction applied Summed Stress Score: 1 Summed Rest Score: 0 Summed Difference Score: 1 PERFUSION FINDINGS There is a small sized area of reversible perfusion defect noted in inferolateral wall. This is consistent with small sized area of ischemia in the left circumflex artery territory. Attenuation artifact can not be ruled out. FUNCTIONAL RESULTS (calculated via Gated SPECT) Stress Image LV EF (%): 57 Stress EDV (mL):138 TID: 1.08 Stress ESV (mL):60 FUNCTIONAL FINDINGS: There is normal left ventricular systolic function. IMPRESSIONS 1. Small sized area of ischemia seen in left circumflex artery territory. Attenuation artifact cannot rule out. Clinical correlation is required. 2. LV systolic function is normal. Izaiah Reyna MD (Electronically Signed) Final Date: 07 September 2023 09:07 S
[2023-09-06] MEDS: regadenoson 0.4 Mg/5 ml Syringe IVP (10:55)
[2023-09-06 11:17] VITALS: BP 132/89; PULSE 89
== END 2023-09-06 08:25 | disposition home or self-care (01) ==
PROVIDERS: PCP Family Medicine; Visit Provider Internal Medicine
DX: R07.9 Chest pain, unspecified (principal); R06.02 Shortness of breath; I25.9 Chronic ischemic heart disease, unspecified
CPT/HCPCS: 36415; 78452; 93017; 96374; A9500; J2785

== ENCOUNTER 2023-09-13 18:36 | Inpatient (IN) | payer MEDICAID, SELFPAY ==
[2023-09-13 18:51] VITALS: BP 149/70; PULSE 84; RESP 20; TEMP 37; O2SAT 100; BMI 23.6
[2023-09-13 20:18] LABS: Basophils % 0.7 %; Eosinophils # 0.1 10^3/uL (0.0-0.8); Eosinophils % 1.8 %; Hematocrit 25.6 % (37-53); Lymphocytes # 1.5 10^3/uL (0.8-4.8); Lymphocytes % 27.4 %; Mean Corpuscular HGB Conc 33.2 g/dL (30-55); Mean Corpuscular Hemoglobin 30.4 pg (27-33); Mean Corpuscular Volume 91.4 fl (82-101); Mean Platelet Volume 9.7 fL (7.4-10.4); Monocytes # 0.5 10^3/uL (0.2-0.9); Monocytes % 9.3 %; Neutrophils # 3.41 10^3/uL (1.8-7.7); Neutrophils % 60.6 %; Nucleated Red Blood Cells % 0 %; Platelet Count 261 10^3/cmm (157-399); White Blood Count 5.62 10^3/uL (3.29-11.43)
[2023-09-13] MEDS: sodium chloride 0.9% 1,000 ML 999 ML IV (20:41)
[2023-09-13 20:52] LABS: Add Urine Microscopic? YES; Bilirubin Urine Neg (Negative); Blood Urine 2+ (Negative); Glucose Urine UA Norm (Normal); Ketones Urine Negative (Negative); Leukocyte Esterase Urine 1+ (Negative); Nitrate Urine Negative (Negative); Protein Urine 1+ (Negative); Urine Appearance SL Hazy (CLEAR); Urine Color Yellow (Yellow); Urobilinogen Urine Norm (Negative); pH Urine 7 (5-7)
[2023-09-13 20:53] LABS: Add Urine Culture? Yes; Bacteria Urine 1+ /hpf; RBC Urine 0-4 /hpf (0-2); Squamous Epithelial Cell Urine 0-4 /hpf (0-5)
[2023-09-13] MEDS: cefTRIAXone 1,000 MG in sodium chloride 0.9% (plus) 50 ML 100 MG IV (21:15)
[2023-09-13 21:37] LABS: Alanine Aminotransferase 19 U/L (0-41); Albumin Level 4.4 g/dL (3.5-5.2); Alkaline Phosphatase 109 U/L (40-130); Anion Gap 18.8 (5-19); Aspartate Amino Transferase 30 U/L (0-40); Blood Urea Nitrogen 69 mg/dL (6-20); Calcium 9.4 mg/dL (8.5-10.5); Carbon Dioxide 23 mmol/L (22-29); Chloride 93 mmol/L (98-107); Globulin 2.9 g/dL (1.3-4.6); Glomerular Filtration Rate 13.2 mL/min (90-130); Glucose 93 mg/dL (65-115); Osmolality Calculated 290 mOsm/kg (285-295); Potassium 4.8 mmol/L (3.5-5.1); Sodium 130 mmol/L (136-145); Total Bilirubin 0.2 mg/dL (0.15-1.2); Total Protein 7.3 g/dL (6.6-8.7)
[2023-09-13 21:41] LABS: NT Pro B Type Natriuretic Pept 4222 pg/mL (0-125)
--- NOTE | 2023-09-13 22:03 | ED_ITS ---
HPI - Recheck/Abnormal Lab/Rx 2 General: Chief Complaint: Recheck/Abnormal Lab/Rx Stated Complaint: doctor refered, blood work for possible dialasys Time Seen by Provider: 09/13/23 19:01 History of Present Illness: 53-year-old intellectually delayed male presents emergency department with his caregiver. The caregiver states he was referred to the emergency department by his physician for additional reevaluation of his elevated potassium level and to discuss the need for possible dialysis given his worsening renal function. Patient is a very poor historian given his developmental delay. Review of Systems 2 General: Reports: 10 or more systems reviewed and unremarkable except in HPI and below Card: Reports: edema PFSH ED 2 PFSH: Medical History Acute kidney injury superimposed on CKD Acute hyponatremia Hyponatremia Anemia Hypervolemia Hyperlipemia, mixed Tobacco abuse Diabetes Social History Smoking and tobacco/nicotine status: current every day tobacco/nicotine user Physical Exam 2 Narrative: EXAM NARRATIVE: Constitutional: the patient appears well nourished and developmentally delayed cognition/intellect. vital signs as documented. No acute distress at present. Alert and oriented-to person. Head, eyes, ears, nose, mouth, throat: Normocephalic, atraumatic. Pupils-equal, round, reactive to light. No scleral icterus. Normal-appearing external ears. Normal appearing nasal turbinates, no drainage. No obvious oral lesions, posterior oropharynx without erythema or exudates. Neck: Supple, trachea is midline, no lymphadenopathy, no jugular venous distension, thyromegaly, or carotid bruits. Carotid upstrokes are brisk bilaterally. Lungs: clear to auscultation to all lung moraes. Symmetrical rise and fall of chest, no obvious signs of increased work of breathing at present. Cardiac: Regular rate and rhythm, positive S1, S2. No murmurs, rubs or gallops that I can appreciate Abdomen: Soft, non-tender to palpation, normal active bowel sounds to all quadrants. No palpable masses, no organomegaly and abdominal bruits. Extremities: 2+ pulses in the upper extremities that are equal bilaterally, 2+ pulses in the lower extremities that are equal bilaterally. Edematous lower extremities. Moves all extremities well, sensation to all extremities are noted. Skin: Warm, dry, intact. Course 2 Vital Signs: Vital signs: Vital Signs Temperature 98.3 F 09/17/23 16:07 Pulse Rate 84 09/17/23 16:07 Respiratory Rate 17 09/17/23 16:07 Blood Pressure 128/66 09/17/23 16:07 Pulse Oximetry 99 09/17/23 16:07 Oxygen Delivery Me thod Room Air 09/17/23 08:00 MDM - Recheck/Abnormal Lab/Rx Medical Decision Making Physical exam completed and documented I will obtain a CBC a CMP, coagulation studies and evaluate the patient for possible need for admission to discuss further treatment and care regarding hemodialysis and the patient's elevated potassium level, worsening renal function.. Medical Records I reviewed the patient's medical records. Lab Data I reviewed the patient's lab results. 09/17/23 05:22 09/17/23 05:22 Radiology Impressions Chest X-Ray 09/14/23 16:37 IMPRESSION: 1. Increased interstitial markings with peribronchial cuffing in the lung bases are nonspecific but can be seen the setting of bronchitis, viral infection and small-vessel airways disease. 2. No focal consolidation. Renal Ultrasound 09/15/23 06:00 IMPRESSION: No acute findings. Laboratory Results WBC 5.62 10^3/uL (3.29-11.43) 09/13/23 19:44 RBC 2.80 10^6/uL (3.85-5.65) L 09/13/23 19:44 Hgb 8.50 g/dL (11.27-16.99) L 09/13/23 19:44 Hct 25.6 % (37-53) L 09/13/23 19:44 MCV 91.4 fl (82-101) 09/13/23 19:44 MCH 30.4 pg (27-33) 09/13/23 19:44 MCHC 33.2 g/dL (30-55) 09/13/23 19:44 RDW 14.0 % (12.1-15.1) 09/13/23 19:44 Plt Count 261 10^3/cmm (157-399) 09/13/23 19:44 MPV 9.7 fL (7.4-10.4) 09/13/23 19:44 Neut % (Auto) 60.6 % 09/13/23 19:44 Lymph % (Auto) 27.4 % 09/13/23 19:44 [place] % (Auto) 9.3 % 09/13/23 19:44 Eos % (Auto) 1.8 % 09/13/23 19:44 Baso % (Auto) 0.7 % 09/13/23 19:44 Neut # (Auto) 3.41 10^3/uL (1.8-7.7) 09/13/23 19:44 Lymph # (Auto) 1.5 10^3/uL (0.8-4.8) 09/13/23 19:44 [place] # (Auto) 0.5 10^3/uL (0.2-0.9) 09/13/23 19:44 Eos # (Auto) 0.1 10^3/uL (0.0-0.8) 09/13/23 19:44 Baso # (Auto) 0.0 10^3/uL (0.0-0.1) 09/13/23 19:44 Nucleated RBC % (auto) 0 % 09/13/23 19:44 Nucleated RBCs # 0.0 /100WBC 09/13/23 19:44 D-Dimer 0.43 ug/mLFEU (0-0.59) 09/13/23 19:44 Sodium 130 mmol/L (136-145) L 09/13/23 19:44 Potassium 4.8 mmol/L (3.5-5.1) 09/13/23 19:44 Chloride 93 mmol/L (98-107) L 09/13/23 19:44 Carbon Dioxide 23 mmol/L (22-29) 09/13/23 19:44 Anion Gap 18.8 (5-19) 09/13/23 19:44 BUN 69 mg/dL (6-20) H 09/13/23 19:44 Creatinine 5.5 mg/dL (0.7-1.2) H 09/13/23 19:44 GFR Calculation 13.2 mL/min (90-130) L 09/13/23 19:44 Glucose 93 mg/dL (65-115) 09/13/23 19:44 Estimat Average Glucose 123 09/13/23 19:44 Hemoglobin A1c 5.9 % (4.0-6.0) 09/13/23 19:44 Calculated Osmolality 290 mOsm/kg (285-295) 09/13/23 19:44 Calcium 9.4 mg/dL (8.5-10.5) 09/13/23 19:44 Total Bilirubin 0.2 mg/dL (0.15-1.2) 09/13/23 19:44 AST 30 U/L (0-40) 09/13/23 19:44 ALT 19 U/L (0-41) 09/13/23 19:44 Alkaline Phosphatase 109 U/L (40-130) 09/13/23 19:44 NT-Pro-B Natriuret Pep 4222 pg/mL (0-125) H 09/13/23 19:44 Total Protein 7.3 g/dL (6.6-8.7) 09/13/23 19:44 Albumin 4.4 g/dL (3.5-5.2) 09/13/23 19:44 Globulin 2.9 g/dL (1.3-4.6) 09/13/23 19:44 Vitamin B12 1327 pg/mL (232-1245) H 09/13/23 19:44 TSH 0.90 uIU/mL (0.27-4.20) 09/13/23 19:44 Urine Color Yellow (Yellow) 09/13/23 20:35 Urine Appearance Sl hazy (CLEAR) A 09/13/23 20:35 Urine pH 7 (5-7) 09/13/23 20:35 Ur Specific [place] 1.010 (1.005-1.030) 09/13/23 20:35 Urine Protein 1+ (Negative) H 09/13/23 20:35 Urine Glucose (UA) Norm (Normal) 09/13/23 20:35 Urine Ketones Negative (Negative) 09/13/23 20:35 Urine Blood 2+ (Negative) H 09/13/23 20:35 Urine Nitrate Negative (Negative) 09/13/23 20:35 Urine Bilirubin Neg (Negative) 09/13/23 20:35 Urine Urobilinogen Norm mg/dL (Negative) 09/13/23 20:35 Ur Leukocyte Esterase 1+ (Negative) H 09/13/23 20:35 Urine RBC 0-4 /hpf (0-2) H 09/13/23 20:35 Urine WBC 10-15 /hpf (0-5) H 09/13/23 20:35 Ur Squamous Epith Cells 0-4 /hpf (0-5) H 09/13/23 20:35 Amorphous Sediment Not Reportable 09/13/23 20:35 Urine Bacteria 1+ /hpf (NONE) H 09/13/23 20:35 All radiology interpretation(s) finalized by discharge Discharge Plan Discharge Patient Disposition: Admitted As Inpatient Admit Provider: Jarrell Soto Clinical Impression: Acute renal failure, Acute hyponatremia Condition: Stable Discharge Diet: Usual diet Discharge Activity: Resume usual activity Coding Level of Care Code ED Beef Breaker for Maria R Garrison
--- NOTE | 2023-09-13 22:05 | PM.HP ---
Providers/Chief Complaint Primary Care Provider: Ahsan Gilliam MD Chief Complaint: doctor refered, blood work for possible dialasys History of Present Illness Tyrese Leach is a 53 year old male with history of diabetes hypertension,Recently had a cardiac stress test which was unremarkable, preserved ejection fraction present to the hospital for worsening of his creatinine. Patient is known to provide history, he has intellectual challenges, he is accompanied by his caregiver, he is from [facility] facility, currently the caregiver patient was diagnosed with chronic kidney disease stage V and there was consideration being given to dialysis because he was consistently hyperkalemic, lisinopril was held, today he was sent to the hospital because of abnormal blood work of creatinine getting worse. As per the caregiver patient is very hard of hearing, able to answer simple questions, patient is incontinent, patient is complaining of feet being swollen. Review of records reveals that patient recently had a stress test which was unremarkable Patient has seen regional business manager, insulin was adjusted Review of Systems General: Reports: ROS unobtainable due to medical condition Medications/Allergies Home Medications Medication Instructions Recorded Confirmed Last Taken Type acetaminophen 325 mg capsule 650 mg PO Q4H PRN Pain 03/30/23 07/31/23 Unknown History (Tylenol) albuterol sulfate 90 mcg/actuation 2 puff inhalation 6XD PRN 03/30/23 07/31/23 Unknown History aerosol inhaler Shortness Of Breath Or Wheezing amlodipine 10 mg tablet 10 mg PO DAILY 03/30/23 07/31/23 03/30/23 History aripiprazole 20 mg tablet 20 mg PO DAILY 03/30/23 07/31/23 03/30/23 History aspirin 325 mg tablet,delayed 325 mg PO DAILY 03/30/23 07/31/23 03/30/23 History release atorvastatin 10 mg tablet 10 mg PO QPM 03/30/23 07/31/23 03/29/23 History benztropine 1 mg tablet 1 mg PO BID 03/30/23 07/31/23 03/30/23 History carbamazepine 200 mg tablet 200 mg PO TID 03/30/23 07/31/23 03/30/23 History carvedilol 25 mg tablet 25 mg PO BID 03/30/23 07/31/23 03/30/23 History fenofibrate 160 mg tablet 160 mg PO DAILY 03/30/23 07/31/23 03/30/23 History ferrous sulfate 325 mg (65 mg 325 mg PO DAILY 03/30/23 07/31/23 03/30/23 History iron) tablet gabapentin 300 mg capsule 300 mg PO TID 03/30/23 07/31/23 03/30/23 History glucose 4 gram chewable tablet 4 g PO DAILY PRN blood sugar 03/30/23 07/31/23 Unknown History (TRUEplus Glucose) insulin glargine 100 unit/mL (3 5 unit SUBCUT QPM 03/30/23 07/31/23 03/29/23 History mL) subcutaneous pen (Lantus Solostar U-100 Insulin) lisinopril 20 2 tab PO DAILY #60 tabs 03/30/23 07/31/23 Unknown Rx mg-hydrochlorothiazide 25 mg tablet (Zestoretic) lurasidone 60 mg tablet 60 mg PO DAILY 03/30/23 07/31/23 03/30/23 History magnesium oxide 400 mg PO TID #90 tabs 03/30/23 07/31/23 Unknown Rx multivitamin with folic acid 400 1 tab PO DAILY 03/30/23 07/31/23 03/30/23 History mcg tablet (Daily-Sean (with folic acid)) pantoprazole 40 mg tablet,delayed 40 mg PO DAILY 03/30/23 07/31/23 03/30/23 History release insulin aspart U-100 100 unit/mL 15 unit (0.15 mL) SUBCUT QID #15 mL 05/09/23 07/31/23 Unknown Rx (3 mL) subcutaneous pen (Novolog FlexPen U-100 Insulin aspart) chlorthalidone 25 mg tablet 25 mg PO DAILY 07/18/23 07/31/23 Unknown History isosorbide mononitrate 60 mg 60 mg PO DAILY 07/18/23 07/31/23 Unknown History tablet,extended release 24 hr melatonin 5 mg tablet 10 mg PO DAILY 07/18/23 07/31/23 Unknown History trazodone 50 mg tablet 25 mg PO BEDTIME 07/18/23 07/31/23 Unknown History Allergies Allergy/AdvReac Type Severity Reaction Status Date / Time No Known Allergies Allergy Verified 09/06/23 08:31 PFSH Acute PFSH: Medical History Tobacco abuse Diabetes Social History Smoking and tobacco/nicotine status: current every day tobacco/nicotine user Vitals/I&O/Wt Last Vital Signs Temp 98.6 F 09/13/23 18:51 Pulse 84 09/13/23 18:51 Resp 20 H 09/13/23 18:51 BP 149/70 09/13/23 18:51 Pulse Ox 100 09/13/23 18:51 Weight last 48 hrs Weight 72.575 kg Physical Exam Narrative: -Cuban male Sitting in a wheelchair Lower extremity swelling Pleasant and cooperative GCS 15 Currently on room air Able to answer simple questions Muffled speech is at baseline Poor dentition Hemodynamically stable S1, S2 Data 09/13/23 19:44 09/13/23 19:44 A&P Assessment and plan (1) Hyperlipemia, mixed: (2) Diabetes: (3) Acute on chronic kidney failure: (4) Hypervolemia: (5) Anemia: (6) Hyponatremia: Plan Acute on chronic kidney disease Chronic kidney disease stage IV advancing to 5 Monitor urine output will place Ramos catheter for 24-hour urine output Will request urine studies, hepatitis panel Patient was evaluated at [place] when consideration was being given to dialysis for persistent hyperkalemia when lisinopril was held Will consult nephrology I will hold nephrotoxic agents including chlorthalidone, lisinopril, hydrochlorothiazide Patient is hypoglycemic will hold Lantus tonight Check A1c level, check MEGHA profile, Preserved ejection fraction, I do not have any echo, will request echo for the morning BNP is extremely high Patient does have proteinuria Full code Cardiac consistent carb diet fluid restriction Spoke with the caregiver, Urinalysis reviewed concern for UTI Patient has been incontinent Continue ceftriaxone Review of records History taken from the collateral Attestations Medical Necessity Statement*: More than 2 midnights anticipated for management of acute on chronic kidney disease he might need dialysis in case he gets worse Diagnoses Hyperlipemia, mixed E78.2 Diabetes E11.9 Acute on chronic kidney failure N17.9; N18.9 Hypervolemia E87.70 Anemia D64.9 Hyponatremia E87.1
[2023-09-13 22:30] VITALS: BP 154/92; PULSE 76; RESP 16; O2SAT 100
--- NOTE | 2023-09-13 22:37 | PC.NURSE ---
Report called to [facility] Rankin on MS. All questions and concerns at time of report.
[2023-09-13 23:01] LABS: D Dimer 0.43 ug/mLFEU (0-0.59)
--- NOTE | 2023-09-13 23:01 | USCV_ITS ---
Tyrese Leach Age: 53 Gender: M : 1970 Exam Date: 09/13/2023 23:22 Ordering Phys: Jarrell Soto MD Technologist: LIANA [place] [facility] [place]: evaluate for CHF BP: 154 / 92 HR: 82 Rhythm: Sinus Technical Quality: Adequate MEASUREMENTS (Male / Female) Normal Values 2D ECHO LV Diastolic Diameter PLAX 4.5 cm 4.2 - 5.9 / 3.9 - 5.3 cm LV Systolic Diameter PLAX 2.8 cm IVS Diastolic Thickness 1.7 cm 0.6 - 1.0 / 0.6 - 0.9 cm IVS Systolic Thickness 2.2 cm LVPW Diastolic Thickness 1.6 cm 0.6 - 1.0 / 0.6 - 0.9 cm LVPW Systolic Thickness 1.8 cm LVOT Diameter 2.0 cm LV Ejection Fraction 2D Teich 67.1 % LV Ejection Fraction MOD 2C 65.6 % LV Ejection Fraction 2C AL 65.5 % LA Diameter 3.7 cm LA Width 4.8 cm LA Height 5.9 cm RA Width 4.2 cm RA Height 4.7 cm Aorta at Sinotubular Diameter 2.6 cm IVC Diameter 2.0 cm M-MODE Aortic Annulus Diameter 3.1 cm LA Ao Ratio MM 1.3 MV E Point Septal Separation 0.3 cm DOPPLER AV Peak Velocity 124.0 cm/s LVOT Peak Velocity 84.0 cm/s AV Area Cont Eq vti 1.8 cm squared AV Area Cont Eq pk 2.0 cm squared MV Area PHT 5.9 cm squared MV E' Velocity 64.0 cm/s Mitral E to MV E' Ratio 15.7 Mitral E to LV E' Lateral Ratio 20.4 Mitral E to LV E' Septal Ratio 12.7 TR Peak Velocity 241.0 cm/s TR Peak Gradient 23.2 mmHg TV Peak E Velocity 52.0 cm/s Right Atrial Pressure 5.0 mmHg Pulmonary Artery Systolic Pressu 28.2 mmHg PV Peak Velocity 95.0 cm/s RV Acceleration Time 0.1 s RV Ejection Time 0.4 s RV AcT/ET 0.3 FINDINGS Left Ventricle Normal left ventricular cavity size. Moderate left ventricular hypertrophy. Normal left ventricular systolic function. Grade II/IV diastolic dysfunction, moderately elevated filling pressures. Left ventricular ejection fraction is estimated at 65 %. Right Ventricle Normal right ventricular size and systolic function. Normal right ventricular systolic pressure. Right Atrium The right atrium is normal in size. Left Atrium Mildly increased left atrial size. Mitral Valve Structurally normal mitral valve. Mild mitral valve regurgitation. Aortic Valve Structurally normal trileaflet aortic valve. Mild aortic valve calcification. No aortic valve regurgitation. No aortic valve stenosis. Tricuspid Valve Structurally normal tricuspid valve. Trace tricuspid valve regurgitation. Pulmonic Valve Pulmonic valve not well visualized. Mild pulmonary valve regurgitation. Pericardium Normal pericardium without effusion. Aorta Normal ascending aorta dimension. IVC The inferior vena cava appears normal. CONCLUSIONS Normal left ventricular cavity size. Moderate left ventricular hypertrophy. Normal left ventricular systolic function. Grade II/IV diastolic dysfunction, moderately elevated filling pressures. Left ventricular ejection fraction is estimated at 65 %. Mildly increased left atrial size. Structurally normal mitral valve. Mild mitral valve regurgitation. There are no prior echocardiogram studies to compare. Dr. Greyson Longo MD (Electronically Signed) Final Date: 14 September 2023 07:41 S
[2023-09-13 23:14] VITALS: BP 131/92; PULSE 80; RESP 17; TEMP 36.9; O2SAT 100
[2023-09-13 23:50] LABS: Estmated Average Glucose 123; Hemoglobin A1C 5.9 % (4.0-6.0)
[2023-09-14] VITALS (8 sets, daily range): BP systolic 121–166; BP diastolic 75–92; PULSE 74–83; RESP 16–18; TEMP 36.6–36.9; O2SAT 94–100; BMI 24.0
[2023-09-14 00:19] LABS: Vitamin B12 1327 pg/mL (232-1245)
[2023-09-14] MEDS: heparin 5,000 unit/mL INJ 1 mL 5000 UNIT SUBCUT ×3 (00:19→22:21)
[2023-09-14] MEDS: dextrose 50% syringe 50 mL 25 ML IVP (00:27)
[2023-09-14] MEDS: FUROsemide 10 mg/mL SDV 10mL 60 MG IVP ×2 (00:28→22:58)
[2023-09-14 00:29] LABS: Glucose Point of Care 96 mg/dL (70-110)
[2023-09-14 01:05] LABS: Potassium, Radom Urine 9 mmol/L; Urine Random Chloride 59 mmol/L; Urine Random Sodium 75 mmol/L
[2023-09-14 01:10] LABS: Creatinine Urine, Random 12 mg/dL (39-259); Microalbumin Random Urine 24 ug/dL (0-20)
[2023-09-14 01:34] LABS: Microalbum Creatinine Ratio Ur 2000 mg/dL (0-20)
[2023-09-14 02:02] LABS: Eosinophil Urine No Eosinophils Seen; Urine Eosinophil Count 0 (0-0)
[2023-09-14 06:40] LABS: Glucose Point of Care 83 mg/dL (70-110)
[2023-09-14 07:35] LABS: Basophils % 0.5 %; Eosinophils # 0.1 10^3/uL (0.0-0.8); Eosinophils % 1.9 %; Hematocrit 27.3 % (37-53); Lymphocytes # 1.3 10^3/uL (0.8-4.8); Lymphocytes % 21.3 %; Mean Corpuscular HGB Conc 31.5 g/dL (30-55); Mean Corpuscular Volume 95.1 fl (82-101); Mean Platelet Volume 9.7 fL (7.4-10.4); Monocytes # 0.5 10^3/uL (0.2-0.9); Monocytes % 8.6 %; Neutrophils # 4.23 10^3/uL (1.8-7.7); Neutrophils % 67.4 %; Nucleated Red Blood Cells % 0 %; Platelet Count 348 10^3/cmm (157-399); Red Blood Count 2.87 10^6/uL (3.85-5.65); Red Cell Distribution Width 13.9 % (12.1-15.1); White Blood Count 6.28 10^3/uL (3.29-11.43)
[2023-09-14 07:55] LABS: Anion Gap 18.1 (5-19); Blood Urea Nitrogen 68 mg/dL (6-20); C Reactive Protein 4.2 mg/L (0.0-4.9); Calcium 9.8 mg/dL (8.5-10.5); Carbon Dioxide 22 mmol/L (22-29); Chloride 93 mmol/L (98-107); Glomerular Filtration Rate 13.8 mL/min (90-130); Glucose 82 mg/dL (65-115); Magnesium 1.9 mg/dL (1.7-2.3); Osmolality Calculated 287 mOsm/kg (285-295); Potassium 4.1 mmol/L (3.5-5.1); Sodium 129 mmol/L (136-145)
[2023-09-14 08:13] LABS: Hepatitis A Antibody IgM Non-Reactive (Nonreactive); Hepatitis B Core AB, Total Non-Reactive (Nonreactive); Hepatitis B Surface AB < 3.5 (11.5-1000); Hepatitis B Surface Antigen Non-Reactive (Nonreactive); Hepatitis C Virus Antibody Non-Reactive (Nonreactive)
--- NOTE | 2023-09-14 09:01 | PC.CHAP ---
Pastoral Care Encounter/Spiritual Assessment Type of Contact [] Declined menagerie caretaker visit [] Patient/Family/Request visit [] Outpatient visit [] Follow-up visit [] Physician referral [] Code/Alert [x] Routine visit [] Staff referral [] Actively dying [] Patient sleeping [] Family support [] [] Out of room [] Palliative care [] [] Receiving care in room [] Pre-surgical visit [] Trauma [] Long length of stay [] ICU visit [] Other: Relational/Emotional Strength [x] Patient feels connected with others/family/visitors/staff [] Distress [] Loneliness/isolation [] Abandonment Spirituality of Patient [x] Person of Nuzhat [x] Attends Yazidism of their Nuzhat [x] Believes in Prayer [x] Reads Bible or Confucianist materials [] There are Spiritual issues to be addressed Folder Machine Operator Interventions [x] Prayer [x] Active listening [x] Non-anxious presence [x] Spiritual/emotional support [] Crisis/trauma care [] Spiritual counseling [] Bereavement support [] Provided bereavement packet [] Provided Bible/devotional materials [] Provided toy/stuffed animal, coloring book to patient or family member [] Provided Communion [] Anointing/[place] [] Salvation [x] Completed spiritual assessment [] Other: Impact on Illness or Injury [] Angry [] Fearful [] Anxious [] Often cries [] Exhaustion [] Unable to work [] Unable to attend sikhism [] Unable to walk/stand [] Unable to read [] Unable to drive [] Unable to eat/drink [] Unable to sleep [] Unable to be with family [] Patient intubated [] Other: Summary Time spent with patient 15 min
[2023-09-14] MEDS: ferrous sulfate EC 325 mg Tablet PO (09:51)
[2023-09-14] MEDS: cefTRIAXone 1,000 MG in sodium chloride 0.9% (plus) 50 ML 100 MG IV (09:51)
[2023-09-14] MEDS: carvedilol 25 mg Tablet PO ×2 (09:51→17:53)
[2023-09-14] MEDS: lurasidone 20 mg Tablet 60 MG PO (09:51)
[2023-09-14] MEDS: sennosides-docusate Tablet 1 TAB PO (09:52)
[2023-09-14 12:07] LABS: Glucose Point of Care 307 mg/dL (70-110)
[2023-09-14] MEDS: insulin lispro 100 unit/1 mL SUBCUT ×2 (12:29→17:53)
--- NOTE | 2023-09-14 15:25 | P.PN_ITS ---
Subjective 2 Subjective: Mr. Leach is a 53yo man w/ Intellectual Disability, DM1, HTN, HLD, Asthma, CKDV, and GERD, who was admitted on 09/13/2023 for abnormal labs concerning for SALONI on CKDV. When seen, the patient was awake alert and comfortable in the room. He is not able to answer complicated questions, and that at times it is difficult to understand him, if he is not seen a simple sentence. He did deny any pain, including headaches, abdominal pain, nausea, vomiting. He pointed to the left side of his chest, and mentioned that he has pain there. This last chest wall pain has been evaluated with a stress test Vitals/I&O/Wt Last Vital Signs Temp 98.5 F 09/14/23 12:30 Pulse 83 09/14/23 12:30 Resp 18 09/14/23 12:30 BP 138/75 09/14/23 12:30 Pulse Ox 97 09/14/23 12:30 O2 Del Method Room Air 09/14/23 12:30 09/14/23 09/14/23 09/14/23 06:59 14:59 22:59 Intake Total 530 / 530 Output Total 2350 / 2350 2300 / 2300 Balance -2350 / -1300 -1770 / -1770 Weight last 48 hrs Weight 73.227 kg Weight 74.026 kg Weight 72.575 kg Physical Exam 2 Const: GENERAL APPEARANCE: cooperative and comfortable O RIENTATION/CONSCIOUSNESS: Yes awake and Yes oriented to person HENMT: COMMON NORMALS: normocephalic, atraumatic and external ears normal H EAD & SCALP: normocephalic and atraumatic EXTERNAL EAR: Yes external ears normal MOUTH: Normal oral and palatal mucosa present THROAT: posterior oropharynx normal Eye: COMMON NORMALS: Equal, round and reactive pupils present and conjunctivae normal CONJUNCTIVA: Yes conjunctivae normal PUPIL: Yes Equal, round and reactive pupils present EOM: No EOM abnormal Neck/C-Spine: COMMON NORMALS: Thyroid normal GENERAL: Yes normal visual inspection and Yes trachea midline THYROID: Thyroid normal CAROTIDS: No bruit Lymph: LYMPHATIC: No lymphadenopathy Resp: COMMON NORMALS: clear to auscultation bilaterally AUSCULTATION: clear to auscultation bilaterally, no rales, no rhonchi and no wheezes Cardio: COMMON NORMALS: regular rate and regular rhythm RATE: regular rate RHYTHM: regular rhythm BRUITS: no carotid bruits GI: COMMON NORMALS: Soft to palpation; negative for No hepatosplenomegaly present AUSCULTATION: Yes normoactive bowel sounds PALPATION: Yes Soft to palpation, No Tenderness to palpation present (GI), No Guarding due to palpation present (GI), No Rigid due to palpation and No No hepatosplenomegaly present Extremity: GENERAL: No clubbing, No cyanosis and No deformity Neuro: SENSORIUM/ORIENTATION: Yes oriented to person CRANIAL NERVES: Yes CN normal except as noted SPEECH: abnormal speech (slow) SENSORY EXAM: No sensory level loss detected MOTOR EXAM: 5/5 motor strength present throughout and Normal motor muscle tone present throughout Psych: APPEARANCE: Yes grossly normal ATTITUDE: Yes calm and Yes engaged ACTIVITY/MOTOR BEHAVIOR: Yes appropriate eye contact SPEECH: Yes slow and Yes delayed MOOD & AFFECT: Yes euthymic mood Urinary Catheter Management: Sharma: Cath Placed During This Visit: yes Reason for Continuing Indwelling Catheter: Other Urinary Catheter Date of Insertion: 09/13/23 Urinary Catheter Time of Insertion: 23:07 Data 09/14/23 07:02 09/14/23 07:02 A&P Assessment and plan (1) Diabetes: Qualifiers: Diabetes mellitus type: other specified (including KILO) Diabetes mellitus long term care social worker insulin use: with long term care social worker use Diabetes mellitus complication status: with other specified complication Qualified Code(s): E 13.69 - Other specified diabetes mellitus with other specified complication; Z79.4 - computer terminal operator (current) use of insulin (2) Hyponatremia: (3) Hyperlipemia, mixed: (4) Acute on chronic kidney failure: Qualifiers: Acute renal failure type: unspecified Chronic kidney disease stage: u nspecified stage Qualified Code(s): N17.9 - Acute kidney failure, unspecified; N18.9 - Chronic kidney disease, unspecified (5) Anemia: Qualifiers: Anemia type: due to chronic kidney disease Chronic kidney disease stage: unspecified stage Qualified Code(s): N18.9 - Chronic kidney disease, unspecified; D63.1 - Anemia in chronic kidney disease Plan Mr. Leach is a 53yo man w/ Intellectual Disability, IDDM, HTN, HLD, Asthma, CKDV, and GERD, who was admitted on 09/13/2023 for abnormal labs concerning for SALONI on CKDV. Per chart review, patient was just diagnosed with CKD 5, and there was consideration for HD initiation because the patient was constantly hyperkalemic. The patient was admitted through the ED. A sharma catheter was placed and a UA was sent. The UA was concerning for a UTI. The patient was admitted. The UA was concerning for a potential UTI, so she was given. # SALONI on CKDV - Nephrology consulted. - Renal US ordered per discussion w/ Nephrology - Strict Is & Os - F/u MEGHA. # Possible Acute Cystitis - On Ceftriaxone. F/u UCx. BCx. #IDDM: - On sliding scale. #Anemia of chronic disease - F/u iron studies. #HTN #HLD #GERD #Asthma - Resumed prn #Psych/Neurologic smptoms: Resumed home meds of Abilify, Tegretol, and Latuda. DVT ppx: heparin subq Attestations 2 Medical Necessity Statement*: Patient is hospitalized for at as 2 midnights for SALONI on CKD. Coding Level of Care Code Acute Code for Chg Fwd Diagnoses Other specified diabetes mellitus with other specified complication, with long- term current use of insulin E13.69; Z79.4 Diabetes mellitus type: other specified (including KILO) Diabetes mellitus detention insulin use: with long term care social worker use Diabetes mellitus complication status: with other specified complication Hyponatremia E87.1 Hyperlipemia, mixed E78.2 Acute renal failure superimposed on chronic kidney disease, unspecified acute renal failure type, unspecified CKD stage N17.9; N18.9 Acute renal failure type: unspecified Chronic kidney disease stage: unspecified stage Anemia due to chronic kidney disease, unspecified CKD stage N18.9; D63.1 Anemia type: due to chronic kidney disease Chronic kidney disease stage: unspecified stage
--- NOTE | 2023-09-14 16:37 | XRR_ITS ---
PROCEDURE INFORMATION: Exam: XR Chest Exam date and time: 09/14/2023 6:42 PM Age: 53 years old Clinical indication: Injury or trauma; Other: Volume status; Other: Unknown TECHNIQUE: Imaging protocol: Radiologic exam of the chest. Views: 1 view. COMPARISON: CR XR chest 1V portable [id number] 05/15/2023 10:08 PM FINDINGS: Lungs: Increased interstitial markings with peribronchial cuffing in the lung bases are nonspecific but can be seen the setting of bronchitis, viral infection and small-vessel airways disease. No focal consolidation. Pleural spaces: Unremarkable. No pleural effusion. No pneumothorax. Heart/Mediastinum: Unremarkable. No cardiomegaly. Bones/joints: Unremarkable. XR/XR chest 1V portable [id number] IMPRESSION: 1. Increased interstitial markings with peribronchial cuffing in the lung bases are nonspecific but can be seen the setting of bronchitis, viral infection and small-vessel airways disease. 2. No focal consolidation.
[2023-09-14 16:54] LABS: Glucose Point of Care 145 mg/dL (70-110)
[2023-09-14 17:50] LABS: Partial Thromboplastin Time 28.8 SECONDS (23.9-36.7)
[2023-09-14 17:52] LABS: D Dimer 0.43 ug/mLFEU (0-0.59)
[2023-09-14 17:54] LABS: Lactate (Lactic Acid level) 1.1 mmol/L (0.5-2.2)
[2023-09-14 17:55] LABS: Troponin T (5th) Once 83 ng/L (0-15)
[2023-09-14 18:04] LABS: NT Pro B Type Natriuretic Pept 4786 pg/mL (0-125)
[2023-09-14 20:51] LABS: Glucose Point of Care 80 mg/dL (70-110)
--- NOTE | 2023-09-14 21:03 | PM.CONSULT ---
Providers/Reason For Consult Consulting Physician/Specialty*: [facility] /Nephrology Reason for Consult*: Acute on CKD Attending Physician: Jarrell Soto MD Primary Care Provider: Ahsan Gilliam MD History of Present Illness History of Present Illness Tyrese Leach is a Patient is a 53-year-old male with past medical history of diabetes, hypertension, chronic kidney disease, has intellectual disabilities-he is any IS facility, has state appointed power of traffic or system dispatcher to make medical decisions. Patient has known history of CKD and dialysis is being considered. Patient is not able to provide any further history at this time. Home medications included HCTZ and lisinopril which are currently on hold. In the ER vital signs are stable, lab data significant for hemoglobin of 8.5 sodium 130 and creatinine of 5.5. Review of Systems Narrative: Cannot obtain full review of systems Medications/Allergies Home Medications Medication Instructions Recorded Confirmed Last Taken Type acetaminophen 325 mg capsule 650 mg PO Q4H PRN Pain 03/30/23 09/13/23 09/13/23 History (Tylenol) albuterol sulfate 90 mcg/actuation 2 puff inhalation 6XD PRN 03/30/23 09/13/23 Unknown History aerosol inhaler Shortness Of Breath Or Wheezing amlodipine 10 mg tablet 10 mg PO DAILY 03/30/23 09/13/23 09/13/23 09:00 History aripiprazole 20 mg tablet 10 mg PO DAILY 03/30/23 09/13/23 09/13/23 09:00 History aspirin 325 mg tablet,delayed 325 mg PO DAILY 03/30/23 09/13/23 09/13/23 09:00 History release atorvastatin 10 mg tablet 10 mg PO QPM 03/30/23 09/13/23 09/12/23 21:00 History benztropine 1 mg tablet 1 mg PO BID 03/30/23 09/13/23 09/13/23 09:00 History carbamazepine 200 mg tablet 200 mg PO TID 03/30/23 09/13/23 09/13/23 14:00 History carvedilol 25 mg tablet 25 mg PO BID 03/30/23 09/13/23 09/13/23 09:00 History fenofibrate 160 mg tablet 160 mg PO DAILY 03/30/23 09/13/23 09/13/23 09:00 History ferrous sulfate 325 mg (65 mg 325 mg PO DAILY 03/30/23 09/13/23 09/13/23 09:00 History iron) tablet gabapentin 300 mg capsule 300 mg PO TID 03/30/23 09/13/23 09/13/23 14:00 History glucose 4 gram chewable tablet 4 g PO DAILY PRN blood sugar 03/30/23 09/13/23 09/05/23 History (TRUEplus Glucose) insulin glargine 100 unit/mL (3 10 unit SUBCUT QPM 03/30/23 09/13/23 09/12/23 21:00 History mL) subcutaneous pen (Lantus Solostar U-100 Insulin) lurasidone 60 mg tablet 60 mg PO DAILY 03/30/23 09/13/23 09/13/23 09:00 History magnesium oxide 400 mg PO TID #90 tabs 03/30/23 09/13/23 09/13/23 14:00 Rx multivitamin with folic acid 400 1 tab PO DAILY 03/30/23 09/13/23 09/13/23 09:00 History mcg tablet (Daily-Sean (with folic acid)) pantoprazole 40 mg tablet,delayed 40 mg PO DAILY 03/30/23 09/13/23 09/13/23 09:00 History release insulin aspart U-100 100 unit/mL 15 unit (0.15 mL) SUBCUT QID #15 mL 05/09/23 09/13/23 09/13/23 12:00 Rx (3 mL) subcutaneous pen (Novolog FlexPen U-100 Insulin aspart) chlorthalidone 25 mg tablet 25 mg PO DAILY 07/18/23 09/13/23 09/13/23 09:00 History isosorbide mononitrate 60 mg 60 mg PO DAILY 07/18/23 09/13/23 09/13/23 09:00 History tablet,extended release 24 hr melatonin 5 mg tablet 10 mg PO QPM 07/18/23 09/13/23 09/12/23 21:00 History trazodone 50 mg tablet 50 mg PO BEDTIME 07/18/23 09/13/23 09/12/23 21:00 History insulin aspart U-100 100 unit/mL 10 unit SUBCUT TIDWM 09/13/23 09/13/23 09/13/23 12:00 History (3 mL) subcutaneous pen (Novolog FlexPen U-100 Insulin aspart) Allergies Allergy/AdvReac Type Severity Reaction Status Date / Time No Known Allergies Allergy Verified 09/06/23 08:31 Current Medications Generic Name Dose Route Start Last Admin Trade Name Cindy PRN Reason Stop Dose Admin Carvedilol 25 mg 09/14/23 09:00 09/14/23 17:53 Carvedilol 25 Mg Tablet PO 25 mg BID CARLOS Administration Ferrous Sulfate 325 mg 09/14/23 09:00 09/14/23 09:51 Ferrous Sulfate Ec 325 Mg Tablet PO 325 mg DAILY CARLOS Administration Furosemide 60 mg 09/13/23 23:01 09/14/23 00:28 Furosemide 10 Mg/Ml Sdv 10ml IVP 60 mg Q24H CARLOS Administration Heparin Sodium (Porcine) 5,000 unit 09/13/23 23:01 09/14/23 12:31 Heparin 5,000 Unit/Ml Inj 1 Ml SUBCUT 5,000 unit Q12H CARLOS Administration Ceftriaxone Sodium 1,000 mg/ 50 mls @ 100 mls/hr 09/14/23 09:00 09/14/23 10:24 Sodium Chloride IV Infused DAILY CARLOS Infusion Protocol Insulin Human Lispro 0 unit 09/14/23 08:00 09/14/23 17:53 Insulin Lispro 100 Unit/1 Ml SUBCUT 4 unit TIDWM CARLOS Administration Protocol Lurasidone HCl 60 mg 09/14/23 09:00 09/14/23 09:51 Lurasidone 20 Mg Tablet PO 60 mg DAILY CARLOS Administration Senna/Docusate Sodium 1 tab 09/14/23 09:00 09/14/23 09:52 Sennosides-Docusate Tablet PO 1 tab DAILY CARLOS Administration PFSH Acute PFSH: Medical History Tobacco abuse Diabetes Social History Smoking and tobacco/nicotine status: current every day tobacco/nicotine user Vitals/I&O/Wt Last Vital Signs Temp 98.2 F 09/14/23 20:00 Pulse 82 09/14/23 20:00 Resp 16 09/14/23 20:00 BP 157/78 09/14/23 20:00 Pulse Ox 98 09/14/23 20:00 O2 Del Method Room Air 09/14/23 20:00 09/14/23 09/14/23 09/14/23 06:59 14:59 22:59 Intake Total 530 / 530 980 / 1510 Output Total 2350 / 2350 2300 / 2300 1200 / 3500 Balance -2350 / -1300 -1770 / -1770 -220 / -1990 Weight last 48 hrs Weight 73.227 kg Weight 74.026 kg Weight 72.575 kg Physical Exam Narrative: Awake, alert, no distress No edema Urinary Catheter Management: Ramos: Cath Placed During This Visit: yes Reason for Continuing Indwelling Catheter: Other Urinary Catheter Date of Insertion: 09/13/23 Urinary Catheter Time of Insertion: 23:07 Data 09/14/23 07:02 09/14/23 07:02 A&P Assessment and plan (1) Acute kidney injury superimposed on CKD: Plan 1. Acute on chronic kidney disease stage V: Creatinine currently in the 5 range, electrolytes stable, no significant volume overload. Patient has a state appointed caregiver and medical power of traffic or system dispatcher. Would recommend arranging outpatient nephrology and close follow-up. Ordered renal ultrasound. No acute indication to initiate hemodialysis. Also due to patient's intellectual disability-need to discuss with POA regarding implications of long-term HD. Continue to monitor renal function closely, 2 g sodium restriction and 1500 mL fluid restriction, renal diet. Avoid nephrotoxins and IV contrast studies. Will start Lasix 40 Mg daily Do not restart HCTZ after discharge 2. Hypertension: Avoid LUISA inhibitors and HCTZ, BP reasonably controlled at this time. 3. Hyponatremia: Monitor, fluid restriction 4. Anemia: Hemoglobin 8.6, will check iron studies and add GEOFF 5. MBD: We will check phosphorus vitamin D levels and PTH levels 6. History of diabetes Patient evaluated using audiovisual cart. Time spent 40 minutes Consult Attestations Medical Necessity Statement: Per medicine Coding Level of Care Code Acute Code for Chg Fwd Diagnoses Acute kidney injury superimposed on CKD N17.9; N18.9
[2023-09-14] MEDS: carBAMazepine 200 mg Tablet PO (21:40)
[2023-09-14] MEDS: trazodone 50 mg Tablet PO (21:40)
[2023-09-14] MEDS: gabapentin 300 mg Capsule PO (21:40)
[2023-09-15] VITALS (7 sets, daily range): BP systolic 142–185; BP diastolic 68–90; PULSE 74–90; RESP 16–20; TEMP 36.8–36.9; O2SAT 96–100; BMI 23.9
--- NOTE | 2023-09-15 06:00 | USR_ITS ---
PROCEDURE INFORMATION: Exam: US Retroperitoneal; Complete; Kidneys and Bladder Exam date and time: 09/15/2023 8:40 AM Age: 53 years old Clinical indication: Condition or disease; Other: Micky TECHNIQUE: Imaging protocol: Real-time ultrasound of the retroperitoneum with image documentation. Complete exam focused on the kidneys and bladder. COMPARISON: No relevant prior studies available. FINDINGS: Right kidney: Normal-size. No shadowing stones. No hydronephrosis. Left kidney: Normal-size. No shadowing stones. No hydronephrosis. US/US renal BI* [id number] IMPRESSION: No acute findings.
[2023-09-15 06:20] LABS: Glucose Point of Care 109 mg/dL (70-110)
[2023-09-15 07:08] LABS: Ferritin 670 ng/mL (30-400); Iron 46 ug/dL (59-158); Percent Saturation 12.8 % (20-50); Total Iron Binding Capacity 358 mcg/dl; Unsaturated Iron Binding 312 ug/dL (112-347)
--- NOTE | 2023-09-15 08:10 | P.PN_ITS ---
Subjective 2 Subjective: no new complaints Medications: Reviewed: Yes Vitals/I&O/Wt Last Vital Signs Temp 98.2 F 09/15/23 03:45 Pulse 89 09/15/23 03:45 Resp 18 09/15/23 03:45 BP 142/87 09/15/23 03:45 Pulse Ox 100 09/15/23 03:45 O2 Del Method Room Air 09/15/23 03:45 09/14/23 09/15/23 09/15/23 22:59 06:59 14:59 Intake Total 980 / 1510 240 / 1750 Output Total 1650 / 3950 950 / 4900 Balance -670 / -2440 -710 / -3150 Weight last 48 hrs Weight 73.51 kg Weight 73.227 kg Weight 74.026 kg Weight 72.575 kg Physical Exam 2 Narrative: Awake, alert, no distress No edema Urinary Catheter Management: Ramos: Cath Placed During This Visit: yes Reason for Continuing Indwelling Catheter: Other Urinary Catheter Date of Insertion: 09/13/23 Urinary Catheter Time of Insertion: 23:07 Data 09/14/23 07:02 09/14/23 07:02 A&P Assessment and plan (1) Acute kidney injury superimposed on CKD: Plan 1. Acute on chronic kidney disease stage V: Creatinine currently in the 5 range, electrolytes stable, no significant volume overload. Patient has a state appointed caregiver and medical power of ip attorney. Would recommend arranging outpatient nephrology and close follow-up. No obstruction on renal US. No acute indication to initiate hemodialysis. Also due to patient's intellectual disability-need to discuss with POA regarding implications of long-term HD. Continue to monitor renal function closely, 2 g sodium restriction and 1500 mL fluid restriction, renal diet. Avoid nephrotoxins and IV contrast studies. on Lasix 40 Mg daily Do not restart HCTZ after discharge 2. Hypertension: Avoid LUISA inhibitors and HCTZ, BP reasonably controlled at this time. 3. Hyponatremia: Monitor, fluid restriction 4. Anemia: Hemoglobin 8.6, will check iron studies and add GEOFF 5. MBD: We will check phosphorus vitamin D levels and PTH levels 6. History of diabetes Patient evaluated using audiovisual cart. Time spent 40 minutes Attestations 2 Medical Necessity Statement*: per medicine Coding Level of Care Code Acute Code for Chg Fwd Diagnoses Acute kidney injury superimposed on CKD N17.9; N18.9
[2023-09-15] MEDS: carvedilol 25 mg Tablet PO ×2 (09:23→17:21)
[2023-09-15] MEDS: pantoprazole DR 40 mg Tablet PO (09:24)
[2023-09-15] MEDS: carBAMazepine 200 mg Tablet PO ×3 (09:24→21:06)
[2023-09-15] MEDS: sennosides-docusate Tablet 1 TAB PO (09:24)
[2023-09-15] MEDS: multivitamin therapeutic Tablet 1 TAB PO (09:24)
[2023-09-15] MEDS: ARIPiprazole 10 mg Tablet PO (09:24)
[2023-09-15] MEDS: ferrous sulfate EC 325 mg Tablet PO (09:24)
[2023-09-15] MEDS: FUROsemide 40 mg Tablet PO (09:24)
[2023-09-15] MEDS: cefTRIAXone 1,000 MG in sodium chloride 0.9% (plus) 50 ML 100 MG IV (09:25)
[2023-09-15] MEDS: epoetin alfa 1000 Unit/0.05 mL (ESRD) 20000 UNIT SUBCUT (09:27)
[2023-09-15] MEDS: lurasidone 20 mg Tablet 60 MG PO (11:05)
[2023-09-15] MEDS: gabapentin 300 mg Capsule PO ×3 (11:05→21:06)
[2023-09-15 11:37] LABS: Glucose Point of Care 207 mg/dL (70-110)
[2023-09-15] MEDS: insulin lispro 100 unit/1 mL SUBCUT ×2 (12:07→17:21)
[2023-09-15] MEDS: heparin 5,000 unit/mL INJ 1 mL 5000 UNIT SUBCUT ×2 (12:08→22:48)
[2023-09-15 13:05] LABS: Folate Level > 20.0 ng/mL (4.5-32.2)
[2023-09-15 13:35] LABS: Calcium 10.5 mg/dL (8.5-10.5); Parathyroid Hormone 225.4 pg/mL (15-65)
[2023-09-15 14:28] LABS: Iron 54 ug/dL (59-158); Percent Saturation 13.9 % (20-50); Total Iron Binding Capacity 387 mcg/dl; Unsaturated Iron Binding 333 ug/dL (112-347)
[2023-09-15 14:45] LABS: 25 Hydroxy Vitamin D 37 ng/mL (30-100)
[2023-09-15 16:41] LABS: Glucose Point of Care 264 mg/dL (70-110)
[2023-09-15 17:07] LABS: Vitamin B12 1517 pg/mL (232-1245)
[2023-09-15 20:56] LABS: Glucose Point of Care 318 mg/dL (70-110)
[2023-09-15] MEDS: trazodone 50 mg Tablet PO (21:06)
--- NOTE | 2023-09-15 23:52 | PM.PN ---
Subjective Subjective: When seen, the patient was awake alert and comfortable in the room. He denied any pain, including L. chest wall pain, headaches, abdominal pain, nausea, vomiting. States that the only pain he has is the pain of going home. Medications: Reviewed: Yes Vitals/I&O/Wt Last Vital Signs Temp 98.2 F 09/15/23 19:11 Pulse 83 09/15/23 21:05 Resp 16 09/15/23 21:05 BP 157/68 09/15/23 19:11 Pulse Ox 99 09/15/23 21:05 O2 Del Method Room Air 09/15/23 21:05 09/15/23 09/15/23 09/16/23 14:59 22:59 06:59 Intake Total 1010 / 1010 360 / 1370 Output Total 1100 / 1100 Balance 1010 / 1010 -740 / 270 Weight last 48 hrs Weight 73.51 kg Weight 73.51 kg Weight 73.227 kg Weight 74.026 kg Physical Exam Const: GENERAL APPEARANCE: cooperative and comfortable ORIENTATION/CONSCIOUSNESS: Yes awake and Yes oriented to person HENMT: COMMON NORMALS: normocephalic, atraumatic and external ears normal HEAD & SCALP: normocephalic and atraumatic EXTERNAL EAR: Yes external ears normal MOUTH: Normal oral and palatal mucosa present THROAT: posterior oropharynx normal Eye: COMMON NORMALS: Equal, round and reactive pupils present and conjunctivae normal CONJUNCTIVA: Yes conjunctivae normal PUPIL: Yes Equal, round and reactive pupils present EOM: No EOM abnormal Neck/C-Spine: COMMON NORMALS: Thyroid normal GENERAL: Yes normal visual inspection and Yes trachea midline THYROID: Thyroid normal CAROTIDS: No bruit Lymph: LYMPHATIC: No lymphadenopathy Resp: COMMON NORMALS: clear to auscultation bilaterally AUSCULTATION: clear to auscultation bilaterally, no rales, no rhonchi and no wheezes Cardio: COMMON NORMALS: regular rate and regular rhythm RATE: regular rate RHYTHM: regular rhythm BRUITS: no carotid bruits GI: COMMON NORMALS: Soft to palpation; negative for No hepatosplenomegaly present AUSCULTATION: Yes normoactive bowel sounds PALPATION: Yes Soft to palpation, No Tenderness to palpation present (GI), No Guarding due to palpation present (GI), No Rigid due to palpation and No No hepatosplenomegaly present Extremity: GENERAL: No clubbing, No cyanosis and No deformity Neuro: SENSORIUM/ORIENTATION: Yes oriented to person CRANIAL NERVES: Yes CN normal except as noted SPEECH: abnormal speech (slow) SENSORY EXAM: No sensory level loss detected MOTOR EXAM: 5/5 motor strength present throughout and Normal motor muscle tone present throughout Psych: APPEARANCE: Yes grossly normal ATTITUDE: Yes calm and Yes engaged ACTIVITY/MOTOR BEHAVIOR: Yes appropriate eye contact SPEECH: Yes slow and Yes delayed MOOD & AFFECT: Yes euthymic mood Urinary Catheter Management: Sharma: Cath Placed During This Visit: yes Reason for Continuing Indwelling Catheter: Accurate Measurement of Urinary Output in Critically Ill Patients Urinary Catheter Date of Insertion: 09/13/23 Urinary Catheter Time of Insertion: 23:07 Data 09/16/23 04:55 09/16/23 04:55 Micro: Microbiology 09/13/23 20:35 Urine Culture - Preliminary Urine,Clean Catch Gram Negative Rods A&P Assessment and plan (1) Diabetes: Qualifiers: Diabetes mellitus type: other specified (including KILO) 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-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 Diabetes mellitus complication status: with other specified complication Qualified Code(s): E13.69 - Other specified diabetes mellitus with other specified complication; Z79.4 - exterminator termite (current) use of insulin (2) Hyponatremia: (3) Hyperlipemia, mixed: (4) Acute on chronic kidney failure: Qualifiers: Acute renal failure type: unspecified Chronic kidney disease stage: unspecified stage Qualified Code(s): N17.9 - Acute kidney failure, unspecified; N18.9 - Chronic kidney disease, unspecified (5) Anemia: Qualifiers: Anemia type: due to chronic kidney disease Chronic kidney disease stage: unspecified stage Qualified Code(s): N18.9 - Chronic kidney disease, unspecified; D63.1 - Anemia in chronic kidney disease Plan Mr. Leach is a 53yo man w/ Intellectual Disability, IDDM, HTN, HLD, Asthma, CKDV, and GERD, who was admitted on 09/13/2023 for abnormal labs concerning for SALONI on CKDV. Per chart review, patient was just diagnosed with CKD 5, and there was consideration for HD initiation because the patient was constantly hyperkalemic. The patient was admitted through the ED. A sharma catheter was placed and a UA was sent. The UA was concerning for a UTI. The patient was admitted. The UA was concerning for a potential UTI, so she was given. # SALONI on CKDV - Nephrology consulted. - Renal US showed no acute findings - Strict Is & Os. - Fluid restriction #Hyponatremia: Likely due to CKD and a component of vol overload. - Nephrology following. # GNR Acute Cystitis - On Ceftriaxone. F/u UCx. #IDDM with hyperglycemia: - On sliding scale. #Anemia of chronic disease w/ a component of #Iron deficiency Anemia - If he has never done a colonoscopy, he needs a referral for one. - S/p Erythropoietin Stimulating Agent x 1 on 09/15/2023. - Started Iron sucrose x 5 days. #HTN #HLD #GERD #Asthma - Resumed prn #Psych/Neurologic smptoms: Resumed home meds of Abilify, Tegretol, and Latuda. #Insomina: Trazodone as needed DVT ppx: heparin subq Attestations Medical Necessity Statement*: Patient needs to remain hospitalized for his Coding Level of Care Code Acute Code for Chg Fwd Diagnoses Other specified diabetes mellitus with other specified complication, with long-term current use of insulin E13.69; Z79.4 Diabetes mellitus type: other specified (including KILO) Diabetes mellitus half-way insulin use: with half-way use Diabetes mellitus complication status: with other specified complication Hyponatremia E87.1 Hyperlipemia, mixed E78.2 Acute renal failure superimposed on chronic kidney disease, unspecified acute renal failure type, unspecified CKD stage N17.9; N18.9 Acute renal failure type: unspecified Chronic kidney disease stage: unspecified stage Anemia due to chronic kidney disease, unspecified CKD stage N18.9; D63.1 Anemia type: due to chronic kidney disease Chronic kidney disease stage: unspecified stage
[2023-09-16] VITALS (7 sets, daily range): BP systolic 115–164; BP diastolic 64–86; PULSE 72–86; RESP 15–18; TEMP 36.7–36.9; O2SAT 97–100
[2023-09-16 05:51] LABS: Basophils % 0.7 %; Eosinophils # 0.1 10^3/uL (0.0-0.8); Eosinophils % 1.9 %; Hematocrit 27.2 % (37-53); Lymphocytes # 1.5 10^3/uL (0.8-4.8); Lymphocytes % 25.1 %; Mean Corpuscular HGB Conc 33.8 g/dL (30-55); Mean Corpuscular Hemoglobin 30.7 pg (27-33); Mean Corpuscular Volume 90.7 fl (82-101); Mean Platelet Volume 10.2 fL (7.4-10.4); Monocytes # 0.5 10^3/uL (0.2-0.9); Monocytes % 8.7 %; Neutrophils # 3.69 10^3/uL (1.8-7.7); Neutrophils % 63.1 %; Nucleated Red Blood Cells % 0 %; Platelet Count 283 10^3/cmm (157-399); Red Cell Distribution Width 13.7 % (12.1-15.1); White Blood Count 5.85 10^3/uL (3.29-11.43)
[2023-09-16 06:24] LABS: Alanine Aminotransferase 17 U/L (0-41); Albumin Level 4.1 g/dL (3.5-5.2); Alkaline Phosphatase 109 U/L (40-130); Anion Gap 20.2 (5-19); Aspartate Amino Transferase 27 U/L (0-40); Blood Urea Nitrogen 76 mg/dL (6-20); Calcium 9.7 mg/dL (8.5-10.5); Carbon Dioxide 25 mmol/L (22-29); Chloride 90 mmol/L (98-107); Globulin 3.4 g/dL (1.3-4.6); Glomerular Filtration Rate 11.5 mL/min (90-130); Glucose 261 mg/dL (65-115); Magnesium 1.7 mg/dL (1.7-2.3); Osmolality Calculated 304 mOsm/kg (285-295); Phosphorus 2.9 mg/dL (2.5-4.5); Potassium 4.2 mmol/L (3.5-5.1); Sodium 131 mmol/L (136-145); Total Bilirubin 0.2 mg/dL (0.15-1.2); Total Protein 7.5 g/dL (6.6-8.7)
[2023-09-16 06:37] LABS: Glucose Point of Care 217 mg/dL (70-110)
[2023-09-16] MEDS: iron sucrose 200 MG in sodium chloride 0.9% (100 ml) 100 ML 220 MG IV (06:57)
[2023-09-16] MEDS: insulin lispro 100 unit/1 mL SUBCUT ×3 (08:52→17:27)
[2023-09-16] MEDS: gabapentin 300 mg Capsule PO ×3 (08:55→21:28)
[2023-09-16] MEDS: sennosides-docusate Tablet 1 TAB PO (08:55)
[2023-09-16] MEDS: pantoprazole DR 40 mg Tablet PO (08:55)
[2023-09-16] MEDS: ferrous sulfate EC 325 mg Tablet PO (08:55)
[2023-09-16] MEDS: carvedilol 25 mg Tablet PO ×2 (08:55→17:27)
[2023-09-16] MEDS: FUROsemide 40 mg Tablet PO (08:56)
[2023-09-16] MEDS: lurasidone 20 mg Tablet 60 MG PO (08:56)
[2023-09-16] MEDS: carBAMazepine 200 mg Tablet PO ×3 (08:56→21:29)
[2023-09-16] MEDS: multivitamin therapeutic Tablet 1 TAB PO (08:56)
[2023-09-16] MEDS: ARIPiprazole 10 mg Tablet PO (08:56)
[2023-09-16] MEDS: cefTRIAXone 1,000 MG in sodium chloride 0.9% (plus) 50 ML 100 MG IV (08:57)
[2023-09-16 11:28] LABS: Glucose Point of Care 183 mg/dL (70-110)
[2023-09-16] MEDS: heparin 5,000 unit/mL INJ 1 mL 5000 UNIT SUBCUT ×2 (11:48→22:07)
--- NOTE | 2023-09-16 12:27 | PC.NURSE ---
Visit with Telenephrology completed. Dr. Zamora requests visit with caregivers about possible dialysis and care on Sunday09/17/2023. Will report to incoming nurse at shift change to notify case management during working hours.
[2023-09-16 17:07] LABS: Glucose Point of Care 252 mg/dL (70-110)
--- NOTE | 2023-09-16 17:15 | PM.PN ---
Subjective Subjective: When seen, [facility] staff in the [facility]. He is awake and comfortable. His speech is garbled, which is his norm. I spoke with the digital media director on-call, who mentioned that the patient would need to initiate dialysis; however there needs to be a meeting with the medical POA to discuss goals of care if the patient were to initiate dialysis. Medications: Reviewed: Yes Vitals/I&O/Wt Last Vital Signs Temp 98.0 F 09/16/23 16:00 Pulse 82 09/16/23 16:00 Resp 16 09/16/23 16:00 BP 141/86 09/16/23 16:00 Pulse Ox 100 09/16/23 16:00 O2 Del Method Room Air 09/16/23 16:00 09/16/23 09/16/23 09/16/23 06:59 14:59 22:59 Intake Total 400 / 400 Output Total 650 / 2250 Balance -650 / -880 400 / 400 Weight last 48 hrs Weight 69.428 kg Weight 73.51 kg Weight 73.51 kg Physical Exam Const: GENERAL APPEARANCE: cooperative and comfortable ORIENTATION/CONSCIOUSNESS: Yes awake and Yes oriented to person HENMT: COMMON NORMALS: normocephalic, atraumatic and external ears normal HEAD & SCALP: normocephalic and atraumatic EXTERNAL EAR: Yes external ears normal MOUTH: Normal oral and palatal mucosa present THROAT: posterior oropharynx normal Eye: COMMON NORMALS: Equal, round and reactive pupils present and conjunctivae normal CONJUNCTIVA: Yes conjunctivae normal PUPIL: Yes Equal, round and reactive pupils present EOM: No EOM abnormal Neck/C-Spine: COMMON NORMALS: Thyroid normal GENERAL: Yes normal visual inspection and Yes trachea midline THYROID: Thyroid normal CAROTIDS: No bruit Lymph: LYMPHATIC: No lymphadenopathy Resp: COMMON NORMALS: clear to auscultation bilaterally AUSCULTATION: clear to auscultation bilaterally, no rales, no rhonchi and no wheezes Cardio: COMMON NORMALS: regular rate and regular rhythm RATE: regular rate RHYTHM: regular rhythm BRUITS: no carotid bruits GI: COMMON NORMALS: Soft to palpation; negative for No hepatosplenomegaly present AUSCULTATION: Yes normoactive bowel sounds PALPATION: Yes Soft to palpation, No Tenderness to palpation present (GI), No Guarding due to palpation present (GI), No Rigid due to palpation and No No hepatosplenomegaly present Extremity: GENERAL: No clubbing, No cyanosis and No deformity Neuro: SENSORIUM/ORIENTATION: Yes oriented to person CRANIAL NERVES: Yes CN normal except as noted SPEECH: abnormal speech (slow) SENSORY EXAM: No sensory level loss detected MOTOR EXAM: 5/5 motor strength present throughout and Normal motor muscle tone present throughout Psych: APPEARANCE: Yes grossly normal ATTITUDE: Yes calm and Yes engaged ACTIVITY/MOTOR BEHAVIOR: Yes appropriate eye contact SPEECH: Yes slow and Yes delayed MOOD & AFFECT: Yes euthymic mood Urinary Catheter Management: Sharma: Cath Placed During This Visit: yes Reason for Continuing Indwelling Catheter: Accurate Measurement of Urinary Output in Critically Ill Patients Urinary Catheter Date of Insertion: 09/13/23 Urinary Catheter Time of Insertion: 23:07 Data 09/16/23 04:55 09/16/23 04:55 Micro: Microbiology 09/14/23 00:35 Urine Culture - Final Urine Catheterized 09/13/23 20:35 Urine Culture - Preliminary Urine,Clean Catch Gram Negative Rods A&P Assessment and plan (1) Diabetes: Qualifiers: Diabetes mellitus complication status: with other specified complication Diabetes mellitus longterm insulin use: with terminal makeup operator use Diabetes mellitus type: other specified (including KILO) Qualified Code(s): E13.69 - Other specified diabetes mellitus with other specified complication; Z79.4 - custodial (current) use of insulin (2) Hyponatremia: (3) Hyperlipemia, mixed: (4) Acute on chronic kidney failure: Qualifiers: Acute renal failure type: unspecified Chronic kidney disease stage: unspecified stage Qualified Code(s): N17.9 - Acute kidney failure, unspecified; N18.9 - Chronic kidney disease, unspecified (5) Anemia: Qualifiers: Anemia type: due to chronic kidney disease Chronic kidney disease stage: unspecified stage Qualified Code(s): N18.9 - Chronic kidney disease, unspecified; D63.1 - Anemia in chronic kidney disease Plan Mr. Leach is a 53yo man w/ Intellectual Disability, IDDM, HTN, HLD, Asthma, CKDV, and GERD, who was admitted on 09/13/2023 for abnormal labs concerning for SALONI on CKDV. Per chart review, patient was just diagnosed with CKD 5, and there was consideration for HD initiation because the patient was constantly hyperkalemic. The patient was admitted through the ED. A sharma catheter was placed and a UA was sent. The UA was concerning for a UTI. The patient was admitted. The UA was concerning for a potential UTI, so she was given. # SALONI on CKDV - Nephrology consulted. - Renal US showed no acute findings - Strict Is & Os. - Fluid restriction - Initiation of HD is dependent on discussion with patient power of employment attorney and the digital media director. #Hyponatremia: Likely due to CKD and a component of vol overload. - Nephrology following. # GNR Acute Cystitis - On Ceftriaxone. F/u UCx. #IDDM with hyperglycemia: - On sliding scale. Added Lantus insulin 10units. #Anemia of chronic disease w/ a component of #Iron deficiency Anemia - If he has never done a colonoscopy, he needs a referral for one. - S/p Erythropoietin Stimulating Agent x 1 on 09/15/2023. - Started Iron sucrose x 5 days. #HTN #HLD #GERD #Asthma - Resumed prn #Psych/Neurologic smptoms: Resumed home meds of Abilify, Tegretol, and Latuda. #Insomina: Trazodone as needed DVT ppx: heparin subq Attestations Medical Necessity Statement*: Patient remains hospitalized for SALONI on CKD stage V. Coding Level of Care Code Acute Code for Chg Fwd Diagnoses Other specified diabetes mellitus with other specified complication, with long-term current use of insulin E13.69; Z79.4 Diabetes mellitus complication status: with other specified complication Diabetes mellitus terminal makeup operator insulin use: with longterm use Diabetes mellitus type: other specified (including KILO) Hyponatremia E87.1 Hyperlipemia, mixed E78.2 Acute renal failure superimposed on chronic kidney disease, unspecified acute renal failure type, unspecified CKD stage N17.9; N18.9 Acute renal failure type: unspecified Chronic kidney disease stage: unspecified stage Anemia due to chronic kidney disease, unspecified CKD stage N18.9; D63.1 Anemia type: due to chronic kidney disease Chronic kidney disease stage: unspecified stage
[2023-09-16] MEDS: isosorbide mononitrate ER 60 mg Tablet PO (17:26)
[2023-09-16] MEDS: insulin glargine 100 units/1 mL 10 UNIT SUBCUT (17:27)
[2023-09-16] MEDS: amlodipine 10 mg Tablet PO (17:27)
--- NOTE | 2023-09-16 19:55 | P.PN_ITS ---
Subjective 2 Subjective: UOP low renal fxn worse Medications: Reviewed: Yes Vitals/I&O/Wt Last Vital Signs Temp 98.0 F 09/16/23 16:00 Pulse 82 09/16/23 16:00 Resp 16 09/16/23 16:00 BP 141/86 09/16/23 16:00 Pulse Ox 100 09/16/23 16:00 O2 Del Method Room Air 09/16/23 16:00 09/16/23 09/16/23 09/16/23 06:59 14:59 22:59 Intake Total 400 / 400 240 / 640 Output Total 650 / 2250 Balance -650 / -880 400 / 400 240 / 640 Weight last 48 hrs Weight 69.428 kg Weight 73.51 kg Weight 73.51 kg Physical Exam 2 Narrative: Awake, alert, no distress No edema Urinary Catheter Management: Ramos: Cath Placed During This Visit: yes Reason for Continuing Indwelling Catheter: Acute Urinary Retention or Obstruction Urinary Catheter Date of Insertion: 09/13/23 Urinary Catheter Time of Insertion: 23:07 Data 09/16/23 04:55 09/16/23 04:55 Micro: Microbiology 09/14/23 00:35 Urine Culture - Final Urine Catheterized 09/13/23 20:35 Urine Culture - Preliminary Urine,Clean Catch Gram Negative Rods A&P Assessment and plan (1) Acute kidney injury superimposed on CKD: Plan 1. Acute on chronic kidney disease stage V: Creatinine currently in the 5 range, electrolytes stable, no significant volume overload. Patient has a state appointed caregiver and medical power of bankruptcy attorney. No obstruction on renal US. -Cr worse , would need to inititate HD soon but Due to patient's intellectual disability-need to discuss with POA regarding implications of long-term HD. -Asked SW to arrange meeting with his POA and discuss HD options -Continue to monitor renal function closely, 2 g sodium restriction and 1500 mL fluid restriction, renal diet. Avoid nephrotoxins and IV contrast studies. on Lasix 40 Mg daily Do not restart HCTZ after discharge 2. Hypertension: Avoid LUISA inhibitors and HCTZ, BP reasonably controlled at this time. 3. Hyponatremia: Monitor, fluid restriction 4. 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 History of diabetes Patient evaluated using audiovisual cart. Time spent 40 minutes Attestations 2 Medical Necessity Statement*: per medichetanne Coding Level of Care Code Acute Code for Chg Fwd Diagnoses Acute kidney injury superimposed on CKD N17.9; N18.9
[2023-09-16 21:25] LABS: Glucose Point of Care 174 mg/dL (70-110)
[2023-09-16] MEDS: acetaminophen 500 mg Tablet PO (21:29)
[2023-09-16] MEDS: trazodone 50 mg Tablet 100 MG PO (22:06)
[2023-09-16] MEDS: temazepam 15 mg Capsule PO (22:07)
[2023-09-17] VITALS: BP 105/69; PULSE 75; RESP 17; TEMP 36.6; O2SAT 98
--- NOTE | 2023-09-17 02:30 | SUR.OPER ---
Assumed care of pt at this time.
[2023-09-17 03:43] VITALS: BP 101/61; PULSE 74; RESP 17; TEMP 36.8; O2SAT 98
[2023-09-17 05:39] LABS: Basophils % 0.6 %; Eosinophils # 0.1 10^3/uL (0.0-0.8); Hematocrit 26.5 % (37-53); Lymphocytes # 1.8 10^3/uL (0.8-4.8); Lymphocytes % 26.8 %; Mean Corpuscular HGB Conc 33.6 g/dL (30-55); Mean Corpuscular Hemoglobin 30.2 pg (27-33); Mean Corpuscular Volume 89.8 fl (82-101); Mean Platelet Volume 9.4 fL (7.4-10.4); Monocytes # 0.6 10^3/uL (0.2-0.9); Monocytes % 9.3 %; Neutrophils # 4.16 10^3/uL (1.8-7.7); Neutrophils % 60.7 %; Nucleated Red Blood Cells % 0 %; Platelet Count 267 10^3/cmm (157-399); Red Blood Count 2.95 10^6/uL (3.85-5.65); Red Cell Distribution Width 13.6 % (12.1-15.1); White Blood Count 6.86 10^3/uL (3.29-11.43)
[2023-09-17 06:05] LABS: Anion Gap 20.2 (5-19); Carbon Dioxide 24 mmol/L (22-29); Chloride 90 mmol/L (98-107); Glomerular Filtration Rate 11.5 mL/min (90-130); Glucose 169 mg/dL (65-115); Magnesium 1.7 mg/dL (1.7-2.3); Osmolality Calculated 298 mOsm/kg (285-295); Phosphorus 3.8 mg/dL (2.5-4.5); Potassium 4.2 mmol/L (3.5-5.1); Sodium 130 mmol/L (136-145)
[2023-09-17 06:12] LABS: Blood Urea Nitrogen 81 mg/dL (6-20)
[2023-09-17 06:27] LABS: Glucose Point of Care 152 mg/dL (70-110)
[2023-09-17] MEDS: iron sucrose 200 MG in sodium chloride 0.9% (100 ml) 100 ML 220 MG IV (07:55)
[2023-09-17 08:00] VITALS: BP 153/85; PULSE 78; PULSE 86; RESP 15; RESP 16; TEMP 36.9; O2SAT 94; O2SAT 97
[2023-09-17] MEDS: cefTRIAXone 1,000 MG in sodium chloride 0.9% (plus) 50 ML 100 MG IV (08:40)
[2023-09-17] MEDS: insulin glargine 100 units/1 mL 10 UNIT SUBCUT (08:43)
[2023-09-17] MEDS: ARIPiprazole 10 mg Tablet PO (08:45)
[2023-09-17] MEDS: multivitamin therapeutic Tablet 1 TAB PO (08:45)
[2023-09-17] MEDS: isosorbide mononitrate ER 60 mg Tablet PO (08:46)
[2023-09-17] MEDS: ferrous sulfate EC 325 mg Tablet PO (08:47)
[2023-09-17] MEDS: carBAMazepine 200 mg Tablet PO (08:47)
[2023-09-17] MEDS: sennosides-docusate Tablet 1 TAB PO (08:47)
[2023-09-17] MEDS: gabapentin 300 mg Capsule PO (08:47)
[2023-09-17] MEDS: insulin lispro 100 unit/1 mL SUBCUT ×2 (08:47→13:14)
[2023-09-17] MEDS: FUROsemide 40 mg Tablet PO (08:47)
[2023-09-17] MEDS: amlodipine 10 mg Tablet PO (08:47)
[2023-09-17] MEDS: carvedilol 25 mg Tablet PO (08:47)
[2023-09-17] MEDS: pantoprazole DR 40 mg Tablet PO (08:47)
[2023-09-17] MEDS: lurasidone 20 mg Tablet 60 MG PO (10:09)
[2023-09-17 10:51] LABS: Glucose Point of Care 189 mg/dL (70-110)
[2023-09-17 12:00] VITALS: BP 128/66; PULSE 84; RESP 17; TEMP 36.8; O2SAT 99
[2023-09-17] MEDS: heparin 5,000 unit/mL INJ 1 mL 5000 UNIT SUBCUT (13:15)
--- NOTE | 2023-09-17 13:16 | PM.DCS ---
Discharge Providers Date of Admission: 09/13/23 22:19 Date of Discharge: September 17, 2023 Attending Provider at Admission: Jarrell Soto MD Attending Provider at Discharge: Jadiel Wheeler DO Primary Care Provider: Ahsan Gilliam MD Diagnoses at Discharge Discharge Diagnosis (1) Diabetes: Status: Acute Qualifiers: Diabetes mellitus type: other specified (including KILO) Diabetes mellitus joint terminal attack controller insulin use: with joint terminal attack controller use Diabetes mellitus complication status: with other specified complication Qualified Code(s): E13.69 - Other specified diabetes mellitus with other specified complication; Z79.4 - senior care (current) use of insulin (2) Hyponatremia: Status: Acute (3) Hyperlipemia, mixed: Status: Acute (4) Acute on chronic kidney failure: Status: Acute Qualifiers: Acute renal failure type: unspecified Chronic kidney disease stage: unspecified stage Qualified Code(s): N17.9 - Acute kidney failure, unspecified; N18.9 - Chronic kidney disease, unspecified (5) Anemia: Status: Acute Qualifiers: Anemia type: due to chronic kidney disease Chronic kidney disease stage: unspecified stage Qualified Code(s): N18.9 - Chronic kidney disease, unspecified; D63.1 - Anemia in chronic kidney disease Reason for Visit Reason for Visit: doctor refered, blood work for possible dialasys Brief History: Patient was at [facility] nephrology clinic in [place]. The physician wanted blood work however the facility where the patient resides wanted blood work locally. He was brought to the emergency room and found to have worsening chronic kidney disease. And was admitted. Hospital Course Hospital Course Patient was found to have a UTI and started on Rocephin. He has Proteus which is fairly pansensitive. Consultation with telehealth nephrology recommends consideration of hemodialysis. As I discussed with the facility director Christina these conversations had already taken place on Sunday the . Currently the patient has no active need for urgent dialysis at this time. He is medically stable for discharge. Recommend laboratory studies in a week or 2 to assess kidney function with changes to medications for appropriate renal dosing. Please note there is literature that reports proton pump inhibitors as a cause for chronic kidney disease; which is why I discontinued at this time. Also gabapentin dosing was too high with his renal function. I spoke with Christina from the [facility] who will also notify the patient's ground support equipment assembler through the [place] Department of mental health to assess what is best for this patient. Note the patient was in a halfway 6 months prior and the department of mental health suggested the [facility]. I think it is in the patient's best interest to stay at his current facility and perhaps forego dialysis. Another consideration is peritoneal dialysis if it could be done at the facility. These decisions can be made as an outpatient. Physical Exam Narrative: Patient is alert mobile able to get into the wheelchair himself. He shows intellectual deficits but also can answer some questions appropriately. Heart: Normal S1-S2 without murmurs clicks gallops or rubs Lungs: Clear to auscultation without wheezes rales or rhonchi Abdomen: Soft nontender nondistended positive bowel sounds Extremities: No clubbing cyanosis or edema Ramos present Urinary Catheter Management: Ramos: Cath Placed During This Visit: yes Reason for Continuing Indwelling Catheter: Other Urinary Catheter Date of Insertion: 09/13/23 Urinary Catheter Time of Insertion: 23:07 Discharge Data Studies Completed and Pending Completed Studies During Hospitalization Category Date Time Status CXRP [XR chest 1V portable [id number]] Routine Exams 09/14/23 16:37 Completed CV. echo complete* [id number] Routine Ultrasound 09/13/23 23:01 Completed US renal BI* [id number] Routine Ultrasound 09/15/23 06:00 Completed Pending at discharge Category Date Time Status MEGHA Screen w/ Reflex Routine Lab 09/13/23 23:01 Received BMP [Basic Metabolic Panel] AM LABS Lab 09/18/23 04:00 Ordered BMP [Basic Metabolic Panel] AM LABS Lab 09/19/23 04:00 Ordered CBC Auto Diff [Complete Blood Count w/Auto] AM LABS Lab 09/18/23 04:00 Ordered CBC Auto Diff [Complete Blood Count w/Auto] AM LABS Lab 09/19/23 04:00 Ordered Magnesium AM LABS Lab 09/18/23 04:00 Ordered PHOS [Phosphorus] AM LABS Lab 09/18/23 04:00 Ordered Radiology Impressions Chest X-Ray 09/14/23 16:37 IMPRESSION: 1. Increased interstitial markings with peribronchial cuffing in the lung bases are nonspecific but can be seen the setting of bronchitis, viral infection and small-vessel airways disease. 2. No focal consolidation. Renal Ultrasound 09/15/23 06:00 IMPRESSION: No acute findings. Laboratory Results WBC 6.86 10^3/uL (3.29-11.43) 09/17/23 05:22 RBC 2.95 10^6/uL (3.85-5.65) L 09/17/23 05:22 Hgb 8.90 g/dL (11.27-16.99) L 09/17/23 05:22 Hct 26.5 % (37-53) L 09/17/23 05:22 MCV 89.8 fl (82-101) 09/17/23 05:22 MCH 30.2 pg (27-33) 09/17/23 05:22 MCHC 33.6 g/dL (30-55) 09/17/23 05:22 RDW 13.6 % (12.1-15.1) 09/17/23 05:22 Plt Count 267 10^3/cmm (157-399) 09/17/23 05:22 MPV 9.4 fL (7.4-10.4) 09/17/23 05:22 Neut % (Auto) 60.7 % 09/17/23 05:22 Lymph % (Auto) 26.8 % 09/17/23 05:22 [place] % (Auto) 9.3 % 09/17/23 05:22 Eos % (Auto) 2.0 % 09/17/23 05:22 Baso % (Auto) 0.6 % 09/17/23 05:22 Neut # (Auto) 4.16 10^3/uL (1.8-7.7) 09/17/23 05:22 Lymph # (Auto) 1.8 10^3/uL (0.8-4.8) 09/17/23 05:22 [place] # (Auto) 0.6 10^3/uL (0.2-0.9) 09/17/23 05:22 Eos # (Auto) 0.1 10^3/uL (0.0-0.8) 09/17/23 05:22 Baso # (Auto) 0.0 10^3/uL (0.0-0.1) 09/17/23 05:22 Nucleated RBC % (auto) 0 % 09/17/23 05:22 Nucleated RBCs # 0.0 /100WBC 09/17/23 05:22 PT 13.50 SECONDS (12.1-14.9) 09/14/23 17:25 INR 1.00 (0.8-1.2) 09/14/23 17:25 APTT 28.8 SECONDS (23.9-36.7) 09/14/23 17:25 D-Dimer 0.43 ug/mLFEU (0-0.59) 09/14/23 17:25 Sodium 130 mmol/L (136-145) L 09/17/23 05:22 Potassium 4.2 mmol/L (3.5-5.1) 09/17/23 05:22 Chloride 90 mmol/L (98-107) L 09/17/23 05:22 Carbon Dioxide 24 mmol/L (22-29) 09/17/23 05:22 Anion Gap 20.2 (5-19) H 09/17/23 05:22 BUN 81 mg/dL (6-20) H 09/17/23 05:22 Creatinine 6.2 mg/dL (0.7-1.2) H* 09/17/23 05:22 GFR Calculation 11.5 mL/min (90-130) L 09/17/23 05:22 Glucose 169 mg/dL (65-115) H 09/17/23 05:22 POC Glucose 189 mg/dL (70-110) H 09/17/23 10:44 Estimat Average Glucose 123 09/13/23 19:44 Hemoglobin A1c 5.9 % (4.0-6.0) 09/13/23 19:44 Calculated Osmolality 298 mOsm/kg (285-295) H 09/17/23 05:22 Lactate 1.1 mmol/L (0.5-2.2) 09/14/23 17:25 Calcium 10.0 mg/dL (8.5-10.5) 09/17/23 05:22 Phosphorus 3.8 mg/dL (2.5-4.5) 09/17/23 05:22 Magnesium 1.7 mg/dL (1.7-2.3) 09/17/23 05:22 Iron 46 ug/dL (59-158) L 09/15/23 05:53 Iron 54 ug/dL (59-158) L 09/15/23 05:53 TIBC 358 mcg/dl 09/15/23 05:53 TIBC 387 mcg/dl 09/15/23 05:53 % Saturation 12.8 % (20-50) L 09/15/23 05:53 % Saturation 13.9 % (20-50) L 09/15/23 05:53 Unsat Iron Binding 312 ug/dL (112-347) 09/15/23 05:53 Unsat Iron Binding 333 ug/dL (112-347) 09/15/23 05:53 Ferritin 670 ng/mL (30-400) H 09/15/23 05:53 Total Bilirubin 0.2 mg/dL (0.15-1.2) 09/16/23 04:55 AST 27 U/L (0-40) 09/16/23 04:55 ALT 17 U/L (0-41) 09/16/23 04:55 Alkaline Phosphatase 109 U/L (40-130) 09/16/23 04:55 Troponin T 5th Gen ng/L 83 ng/L (0-15) H 09/14/23 17:25 C-Reactive Protein 4.2 mg/L (0.0-4.9) 09/14/23 07:02 NT-Pro-B Natriuret Pep 4786 pg/mL (0-125) H 09/14/23 17:25 Total Protein 7.5 g/dL (6.6-8.7) 09/16/23 04:55 Albumin 4.1 g/dL (3.5-5.2) 09/16/23 04:55 Globulin 3.4 g/dL (1.3-4.6) 09/16/23 04:55 Vitamin B12 1517 pg/mL (232-1245) H 09/15/23 05:53 25-OH Vitamin D Total 37 ng/mL (30-100) 09/15/23 05:53 Folate > 20.0 ng/mL (4.5-32.2) 09/15/23 05:53 TSH 0.90 uIU/mL (0.27-4.20) 09/13/23 19:44 PTH Intact 225.4 pg/mL (15-65) H 09/15/23 05:53 Calcium (PTH Intact) 10.5 mg/dL (8.5-10.5) 09/15/23 05:53 Urine Color Yellow (Yellow) 09/13/23 20:35 Urine Appearance Sl hazy (CLEAR) A 09/13/23 20:35 Urine pH 7 (5-7) 09/13/23 20:35 Ur Specific Revloc 1.010 (1.005-1.030) 09/13/23 20:35 Urine Protein 1+ (Negative) H 09/13/23 20:35 Urine Glucose (UA) Norm (Normal) 09/13/23 20:35 Urine Ketones Negative (Negative) 09/13/23 20:35 Urine Blood 2+ (Negative) H 09/13/23 20:35 Urine Nitrate Negative (Negative) 09/13/23 20:35 Urine Bilirubin Neg (Negative) 09/13/23 20:35 Urine Urobilinogen Norm mg/dL (Negative) 09/13/23 20:35 Ur Leukocyte Esterase 1+ (Negative) H 09/13/23 20:35 Urine RBC 0-4 /hpf (0-2) H 09/13/23 20:35 Urine WBC 10-15 /hpf (0-5) H 09/13/23 20:35 Ur Eosinophil Smear 0 (0-0) 09/14/23 00:35 Ur Squamous Epith Cells 0-4 /hpf (0-5) H 09/13/23 20:35 Amorphous Sediment Not Reportable 09/13/23 20:35 Urine Bacteria 1+ /hpf (NONE) H 09/13/23 20:35 Urine Eosinophils No eosinophils seen 09/14/23 00:35 Ur Random Microalbumin 24 ug/dL (0-20) H 09/14/23 00:35 Ur Random Sodium 75 mmol/L 09/14/23 00:35 Ur Random Potassium 9 mmol/L 09/14/23 00:35 Ur Random Chloride 59 mmol/L 09/14/23 00:35 Urine Creatinine 12 mg/dL (39-259) L 09/14/23 00:35 Microalb/Creat Ratio 2000 mg/dL (0-20) H 09/14/23 00:35 Hepatitis A IgM Ab Non-reactive (Nonreactive) 09/14/23 07:02 Hep Bs Antigen Non-reactive (Nonreactive) 09/14/23 07:02 Hep Bs Antibody < 3.5 (11.5-1000) L 09/14/23 07:02 Hep B Core Total Ab Non-reactive (Nonreactive) 09/14/23 07:02 Hepatitis C Antibody Non-reactive (Nonreactive) 09/14/23 07:02 Vitals Last Vital Signs Temp 98.3 F 09/17/23 12:00 Pulse 84 09/17/23 12:00 Resp 17 09/17/23 12:00 BP 128/66 09/17/23 12:00 Pulse Ox 99 09/17/23 12:00 O2 Del Method Room Air 09/17/23 08:00 Discharge Plan Discharge Patient Disposition: Home Condition: Stable Prescriptions: New gabapentin 300 mg Capsule 300 mg PO DAILY Qty: 30 0RF cefdinir 300 mg capsule 300 mg PO BID Qty: 6 0RF Continued melatonin 5 mg tablet 10 mg PO QPM isosorbide mononitrate 60 mg tablet extended release 24 hr 60 mg PO DAILY chlorthalidone 25 mg tablet 25 mg PO DAILY trazodone 50 mg tablet 50 mg PO BEDTIME carvedilol 25 mg Tablet 25 mg PO BID Rx Instructions: must administer with a meal/food. Hold if systolic BP is below 90 or diastolic BP below 60. atorvastatin 10 mg Tablet 10 mg PO QPM carbamazepine 200 mg Tablet 200 mg PO TID aspirin 325 mg tablet,delayed release (DR/EC) 325 mg PO DAILY amlodipine 10 mg Tablet 10 mg PO DAILY ferrous sulfate 325 mg (65 mg iron) Tablet 325 mg PO DAILY glucose [TRUEplus Glucose] 4 gram tablet,chewable 4 g PO DAILY PRN (Reason: blood sugar) Rx Instructions: Chew and swallow one tablet PRN if blood glucose is below 60. benztropine 1 mg Tablet 1 mg PO BID albuterol sulfate 90 mcg/actuation Hfa Aerosol Inhaler 2 puff INHALATION 6XD PRN (Reason: Shortness Of Breath Or Wheezing) aripiprazole 20 mg Tablet 10 mg PO DAILY fenofibrate 160 mg Tablet 160 mg PO DAILY acetaminophen [Tylenol] 325 mg Capsule 650 mg PO Q4H PRN (Reason: Pain) insulin glargine [Lantus Solostar U-100 Insulin] 100 unit/mL (3 mL) Insulin Pen 10 unit SUBCUT QPM multivitamin with folic acid [Daily-Sean (with folic acid)] 400 mcg tablet 1 tab PO DAILY lurasidone 60 mg Tablet 60 mg PO DAILY Rx Instructions: must administer with food (at least 350 calories) magnesium oxide 400 mg magnesium tablet 400 mg PO TID Qty: 90 0RF insulin aspart U-100 [Novolog FlexPen U-100 Insulin] 100 unit/mL (3 mL) Insulin Pen 15 unit SUBCUT QID Qty: 15 0RF Rx Instructions: per sliding scale Novolog FlexPen U-100 Insulin 100 unit/mL (3 mL) Insulin Pen 10 unit SUBCUT TIDWM Discontinued pantoprazole 40 mg Tablet,Delayed Release (Dr/Ec) 40 mg PO DAILY gabapentin 300 mg Capsule 300 mg PO TID Discharge Orders: Discharge Order (Routine); Ordered 09/17/23 Ordered By: Jadiel Wheeler Referrals: Ahsan Gilliam MD [Primary Care Provider] - Discharge Diet: Usual diet Discharge Activity: Resume usual activity Plan of Treatment: Patient has stable chronic kidney disease with a GFR of 11. Patient has a [facility] obiee obia solution architect in [place]. Patient would should follow-up with this obiee obia solution architect in 1 to 2 months for follow-up. Patient is not able to tolerate hemodialysis due to to an inability to understand to stay still for 4 hours. I would recommend consideration with peritoneal dialysis. Patient's comprehension of disease and prognosis appears to be poor. Patient was unhappy at a prior halfway and now lives in a [facility]. My clinical recommendation is not to pursue any dialysis and allow nature to take its course. Of note patient was still on a few medications affecting the kidneys. Gabapentin dose was decreased to 300/day Protonix has a known history as with all PPIs for causing chronic kidney disease and this was discontinued Also he had a urinary tract infection which is currently being treated Perhaps with these changes his kidney function will improve. There is no indication for emergent dialysis at this time. Discharge Attestations Time Spent in Discharge Care*: greater than 30 min Quality Metrics Clinical Quality Measures [ No reported AMI, CVA or VTE this stay] Coding Level of Care Code Acute Code for Chg Fwd Diagnoses Other specified diabetes mellitus with other specified complication, with long-term current use of insulin E13.69; Z79.4 Diabetes mellitus type: other specified (including KILO) Diabetes mellitus prison insulin use: with joint terminal attack controller use Diabetes mellitus complication status: with other specified complication Hyponatremia E87.1 Hyperlipemia, mixed E78.2 Acute renal failure superimposed on chronic kidney disease, unspecified acute renal failure type, unspecified CKD stage N17.9; N18.9 Acute renal failure type: unspecified Chronic kidney disease stage: unspecified stage Anemia due to chronic kidney disease, unspecified CKD stage N18.9; D63.1 Anemia type: due to chronic kidney disease Chronic kidney disease stage: unspecified stage
--- NOTE | 2023-09-17 13:41 | P.PN_ITS ---
Subjective 2 Subjective: no acute events Medications: Reviewed: Yes Vitals/I&O/Wt Last Vital Signs Temp 98.3 F 09/17/23 12:00 Pulse 84 09/17/23 12:00 Resp 17 09/17/23 12:00 BP 128/66 09/17/23 12:00 Pulse Ox 99 09/17/23 12:00 O2 Del Method Room Air 09/17/23 08:00 09/16/23 09/17/23 09/17/23 22:59 06:59 14:59 Intake Total 480 / 880 Output Total 850 / 850 400 / 400 Balance 480 / 880 -850 / 30 -400 / -400 Weight last 48 hrs Weight 69.428 kg Weight 73.51 kg Physical Exam 2 Narrative: Awake, alert, no distress No edema Urinary Catheter Management: Ramos: Cath Placed During This Visit: yes, but has since been removed by the nurse Reason for Continuing Indwelling Catheter: Decision to DC Catheter Urinary Catheter Date of Insertion: 09/13/23 Urinary Catheter Time of Insertion: 23:07 Date Urinary Catheter Removed: 09/17/23 Time Urinary Catheter Discontinued: 14:25 Data 09/17/23 05:22 09/17/23 05:22 Micro: Microbiology 09/13/23 20:35 Urine Culture - Final Urine,Clean Catch Proteus mirabilis 09/14/23 00:35 Urine Culture - Final Urine Catheterized A&P Assessment and plan (1) Acute kidney injury superimposed on CKD: Plan 1. Acute on chronic kidney disease stage V: Creatinine currently in the 5 range, electrolytes stable, no significant volume overload. Patient has a state appointed caregiver and medical power of sex crimes detective. No obstruction on renal US. -Cr worse , Due to patient's intellectual disability-need to discuss with POA regarding implications of long-term HD. -Asked SW to arrange meeting with his POA and discuss HD options ,not a good candidate for senior living HD -Continue to monitor renal function closely, 2 g sodium restriction and 1500 mL fluid restriction, renal diet. Avoid nephrotoxins and IV contrast studies. on Lasix 40 Mg daily Do not restart HCTZ after discharge 2. Hypertension: Avoid LUISA inhibitors and HCTZ, BP reasonably controlled at this time. 3. Hyponatremia: Monitor, fluid restriction 4. 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 History of diabetes Patient evaluated using audiovisual cart. Time spent 20 minutes Attestations 2 Medical Necessity Statement*: per medicine Coding Level of Care Code Acute Code for Chg Fwd Diagnoses Acute kidney injury superimposed on CKD N17.9; N18.9
--- NOTE | 2023-09-17 16:05 | PC.NURSE ---
Called report to Christina Velázquez Director at [facility]
[2023-09-17 16:07] VITALS: BP 128/66; PULSE 84; RESP 17; TEMP 36.8; O2SAT 99
[2023-09-18 06:59] LABS: Anti-Nuclear Antibody Screen NEGATIVE (NEGATIVE)
== END 2023-09-17 15:00 | disposition home or self-care (01) | DRG 683 ==
LOC: ER 22:09 → MEDSURG 22:19
PROVIDERS: Hospitalist; Internal Medicine; Admitting Provider Internal Medicine; Emergency Provider Internal Medicine; PCP Family Medicine; Visit Provider Internal Medicine
DX: N17.9 Acute kidney failure, unspecified (principal); E87.1 Hypo-osmolality and hyponatremia; I12.0 Hypertensive chronic kidney disease with stage 5 chronic kidney disease or end stage renal disease; N30.00 Acute cystitis without hematuria; F17.210 Nicotine dependence, cigarettes, uncomplicated; E10.22 Type 1 diabetes mellitus with diabetic chronic kidney disease; E10.65 Type 1 diabetes mellitus with hyperglycemia; N18.5 Chronic kidney disease, stage 5; Z79.4 Long term (current) use of insulin; E78.2 Mixed hyperlipidemia; F79 Unspecified intellectual disabilities; J45.909 Unspecified asthma, uncomplicated; K21.9 Gastro-esophageal reflux disease without esophagitis; G47.00 Insomnia, unspecified; D63.1 Anemia in chronic kidney disease; E87.5 Hyperkalemia; D50.9 Iron deficiency anemia, unspecified; B96.4 Proteus (mirabilis) (morganii) as the cause of diseases classified elsewhere
CPT/HCPCS: 36415; 36416; 51702; 71045; 76770; 80048; 80053; 81001; 82044; 82306; 82310; 82436; 82607; 82728; 82746; 82962; 83036; 83540; 83550; 83605; 83735; 83880; 83970; 84100; 84133; 84300; 84443; 84484; 85025; 85378; 85610; 85730; 85999; 86038; 86140; 86705; 86706; 86709; 86803; 87077; 87086; 87186; 87340; 93306; 96365; 96372; 99285; J0696; J1644; J1756; J1815; J1940; J7030; Q3014; Q4081

== ENCOUNTER → 2023-09-26 14:20 | Outpatient (BNVA) | payer MEDICAID, SELFPAY | PROVIDERS: PCP Family Medicine; Visit Provider Internal Medicine | DX: I12.9 Hypertensive chronic kidney disease with stage 1 through stage 4 chronic kidney disease, or unspecified chronic kidney disease (principal); E11.22 Type 2 diabetes mellitus with diabetic chronic kidney disease; N18.9 Chronic kidney disease, unspecified; Z79.4 Long term (current) use of insulin; Z72.0 Tobacco use | CPT/HCPCS: 99214 ==

== ENCOUNTER 2023-10-24 00:14 | Inpatient (IN) | payer MEDICAID, SELFPAY ==
[2023-10-24] VITALS (40 sets, daily range): BP systolic 133–178; BP diastolic 60–114; PULSE 52–84; RESP 13–23; TEMP 36.6–36.8; O2SAT 94–100; BMI 27.8; BMI 22.6
--- NOTE | 2023-10-24 00:23 | ED_ITS ---
HPI - General Adult 2 General: Chief complaint: Altered Mental Status Stated complaint: hypoglycemia Time Seen by Provider: 10/24/23 00:16 History of Present Illness: Patient is an insulin-dependent diabetic and got approximately 24 units of NovoLog tonight with a blood sugar 160. This bottomed patient's blood sugar after 30. EMS was called he started him on D 10 and brought him to the emergency room. Review of Systems 2 General: Reports: 10 or more systems reviewed and unremarkable except in HPI and below PFSH ED 2 PFSH: Medical History Acute kidney injury superimposed on CKD Acute hyponatremia Hyponatremia Anemia Hypervolemia Hyperlipemia, mixed Tobacco abuse Diabetes Social History Smoking and tobacco/nicotine status: current every day tobacco/nicotine user Physical Exam 2 Const: COMMON NORMALS: no acute distress, healthy appearing, alert and well nourished Neck/C-Spine: COMMON NORMALS: no JVD Chest: COMMONS NORMALS: normal inspection of the chest and normal palpation of entire chest wall Resp: COMMON NORMALS: normal respiratory effort, No retractions, No use of accessory muscles and clear to auscultation bilaterally AUSCULTATION: clear to auscultation bilaterally Cardio: COMMON NORMALS: no JVD, regular rate, regular rhythm, S1 normal heart sound present, S2 normal heart sound present, No gallops present (Cardio), No clicks present (Cardio), No murmurs present (Cardio) and No rub (Cardio) R ATE: regular rate RHYTHM: regular rhythm HEART SOUNDS: S1 normal heart sound present and S2 normal heart sound present GI: COMMON NORMALS: Normal to inspection, nondistended, normoactive bowel sounds present, Soft to palpation, non-tender, No hepatosplenomegaly present and no masses PALPATION: Yes Soft to palpation and Yes No hepatosplenomegaly present Neuro: SENSORIUM/ORIENTATION: Yes alert Course 2 Vital Signs: Vital signs: Vital Signs Temperature 98.2 F 10/24/23 00:15 Pulse Rate 59 L 10/24/23 01:50 Respiratory Rate 17 10/24/23 01:50 Blood Pressure 133/66 10/24/23 01:50 Pulse Oximetry 98 10/24/23 01:50 Oxygen Delivery Me thod Room Air 10/24/23 01:50 MDM - General Adult Medical Decision Making Patient was given approximately 24 units of insulin at his facility when his blood sugar was only 164. This bottomed him out in the 30s. Bag of D10 was started by EMS and we let it run at a slow rate. Patient was allowed to eat and drink as he saw fit here in ER multiple blood sugars were checked and they kept increasing. Patient's hemoglobin come back at 8.5 which is chronic. Patient's sodium initially come back to 115 we will recheck a BMP to make for sure this not a lab error. BUN/creatinine chronically elevated this time was 62 and 4.2. Anticipate patient will be admitted to the ICU for his hyponatremia if it is not a lab error. Repeat BMP showed sodium 118 patient will be admitted to Dr. Parada in the ICU. Differential Diagnosis Hypoglycemia secondary to insulin use, hyponatremia Medical Records I reviewed the patient's medical records. Lab Data I reviewed the patient's lab results. 10/24/23 00:43 10/24/23 03:00 Laboratory Results WBC 5.29 10^3/uL (3.29-11.43) 10/24/23 00:43 RBC 2.83 10^6/uL (3.85-5.65) L 10/24/23 00:43 Hgb 8.50 g/dL (11.27-16.99) L 10/24/23 00:43 Hct 25.2 % (37-53) L 10/24/23 00:43 MCV 89.0 fl (82-101) 10/24/23 00:43 MCH 30.0 pg (27-33) 10/24/23 00:43 MCHC 33.7 g/dL (30-55) 10/24/23 00:43 RDW 13.2 % (12.1-15.1) 10/24/23 00:43 Plt Count 220 10^3/cmm (157-399) 10/24/23 00:43 MPV 8.9 fL (7.4-10.4) 10/24/23 00:43 Neut % (Auto) 59.5 % 10/24/23 00:43 Lymph % (Auto) 29.1 % 10/24/23 00:43 Conway % (Auto) 8.1 % 10/24/23 00:43 Eos % (Auto) 2.5 % 10/24/23 00:43 Baso % (Auto) 0.6 % 10/24/23 00:43 Neut # (Auto) 3.15 10^3/uL (1.8-7.7) 10/24/23 00:43 Lymph # (Auto) 1.5 10^3/uL (0.8-4.8) 10/24/23 00:43 Conway # (Auto) 0.4 10^3/uL (0.2-0.9) 10/24/23 00:43 Eos # (Auto) 0.1 10^3/uL (0.0-0.8) 10/24/23 00:43 Baso # (Auto) 0.0 10^3/uL (0.0-0.1) 10/24/23 00:43 Nucleated RBC % (auto) 0 % 10/24/23 00:43 Nucleated RBCs # 0.0 /100WBC 10/24/23 00:43 Sodium 118 mmol/L (136-145) L* 10/24/23 03:00 Potassium 4.2 mmol/L (3.5-5.1) 10/24/23 03:00 Chloride 84 mmol/L (98-107) L 10/24/23 03:00 Carbon Dioxide 23 mmol/L (22-29) 10/24/23 03:00 Anion Gap 15.2 (5-19) 10/24/23 03:00 BUN 61 mg/dL (6-20) H 10/24/23 03:00 Creatinine 4.0 mg/dL (0.7-1.2) H 10/24/23 03:00 GFR Calculation 19.0 mL/min (90-130) L 10/24/23 03:00 Glucose 184 mg/dL (65-115) H 10/24/23 03:00 POC Glucose 118 mg/dL (70-110) H 10/24/23 01:04 Calculated Osmolality 268 mOsm/kg (285-295) L 10/24/23 03:00 Lactic Acid 0.9 mmol/L (0.5-2.2) 10/24/23 00:43 Calcium 8.5 mg/dL (8.5-10.5) 10/24/23 03:00 Phosphorus 3.4 mg/dL (2.5-4.5) 10/24/23 03:00 Magnesium 2.2 mg/dL (1.7-2.3) 10/24/23 03:00 Total Bilirubin 0.2 mg/dL (0.15-1.2) 10/24/23 00:43 AST 30 U/L (0-40) 10/24/23 00:43 ALT 16 U/L (0-41) 10/24/23 00:43 Alkaline Phosphatase 62 U/L (40-130) 10/24/23 00:43 Total Protein 6.7 g/dL (6.6-8.7) 10/24/23 00:43 Albumin 3.8 g/dL (3.5-5.2) 10/24/23 00:43 Globulin 2.9 g/dL (1.3-4.6) 10/24/23 00:43 Procalcitonin 0.24 ng/mL (0-0.5) 10/24/23 03:00 All radiology interpretation(s) finalized by discharge Critical Care Time 2 Critical Care Time: Critical Care Time: Yes Total Critical Care Time: 30 Attestation: The patient was emergently evaluated this patient's presentation and case had a high probability of a clinically significant, sudden, or life-threatening deterioration of the patient's initial critical presentation or condition which required my full and direct attention, intervention and personal management. Discharge Plan Discharge Patient Disposition: Admitted As Inpatient Admit Provider: Enrique Valdes Clinical Impression: Hypoglycemia, Acute hyponatremia Condition: Stable Coding Level of Care Code ED Business Applications Analyst for Maria R Garrison
[2023-10-24 00:47] LABS: Basophils % 0.6 %; Eosinophils # 0.1 10^3/uL (0.0-0.8); Eosinophils % 2.5 %; Hematocrit 25.2 % (37-53); Lymphocytes # 1.5 10^3/uL (0.8-4.8); Lymphocytes % 29.1 %; Mean Corpuscular HGB Conc 33.7 g/dL (30-55); Mean Platelet Volume 8.9 fL (7.4-10.4); Monocytes # 0.4 10^3/uL (0.2-0.9); Monocytes % 8.1 %; Neutrophils # 3.15 10^3/uL (1.8-7.7); Neutrophils % 59.5 %; Nucleated Red Blood Cells % 0 %; Platelet Count 220 10^3/cmm (157-399); Red Blood Count 2.83 10^6/uL (3.85-5.65); Red Cell Distribution Width 13.2 % (12.1-15.1); White Blood Count 5.29 10^3/uL (3.29-11.43)
[2023-10-24 01:05] LABS: Alanine Aminotransferase 16 U/L (0-41); Albumin Level 3.8 g/dL (3.5-5.2); Alkaline Phosphatase 62 U/L (40-130); Anion Gap 15.4 (5-19); Aspartate Amino Transferase 30 U/L (0-40); Blood Urea Nitrogen 62 mg/dL (6-20); Calcium 9.2 mg/dL (8.5-10.5); Carbon Dioxide 24 mmol/L (22-29); Chloride 80 mmol/L (98-107); Globulin 2.9 g/dL (1.3-4.6); Glucose 102 mg/dL (65-115); Osmolality Calculated 258 mOsm/kg (285-295); Potassium 4.4 mmol/L (3.5-5.1); Total Bilirubin 0.2 mg/dL (0.15-1.2); Total Protein 6.7 g/dL (6.6-8.7)
[2023-10-24 01:10] LABS: Glucose Point of Care 81 mg/dL (70-110)
[2023-10-24 01:10] LABS: Glucose Point of Care 118 mg/dL (70-110)
[2023-10-24 01:35] LABS: Sodium 115 mmol/L (136-145)
[2023-10-24] MEDS: sodium chloride 0.9% 1,000 ML 999 ML IV (02:00)
[2023-10-24 03:36] LABS: Anion Gap 15.2 (5-19); Blood Urea Nitrogen 61 mg/dL (6-20); Calcium 8.5 mg/dL (8.5-10.5); Carbon Dioxide 23 mmol/L (22-29); Chloride 84 mmol/L (98-107); Glucose 184 mg/dL (65-115); Osmolality Calculated 268 mOsm/kg (285-295); Potassium 4.2 mmol/L (3.5-5.1)
[2023-10-24 03:39] LABS: Sodium 118 mmol/L (136-145)
--- NOTE | 2023-10-24 04:19 | P.HP_ITS ---
Providers/Chief Complaint 2 Primary Care Provider: Ahsan Gilliam MD Chief Complaint: hypoglycemia History of Present Illness Tyrese Leach is a 53 year old male with a past medical history of intellectual disability, history of chronic renal disease stage IV-V, none insulin-dependent type 2 diabetes mellitus, history of hyponatremia who presents to [facility] due to hypoglycemic episode and hyponatremia. Currently patient is alert to person, not to place, not to time caregiver at bedside tells me that he is mostly nonverbal, he can say a few words here and there, he can feed himself he does not really ambulate, this evening he did not have much of a dinner, he ate some oatmeal, subsequently he was given 10 units of insulin, off the sliding scale, and then another 14 units, is not exactly clear why he was given 2 doses of sliding scale or was in fact the 10 units of insulin that he received was glargine, caregiver at bedside is unsure, nonetheless patient had hypoglycemic episode at 38, became nonresponsive, received D10 by EMS, here blood sugars were in the 160s, caregiver at bedside tells me that he is much more alert and awake, back to his normal self, on my examination, he does awaken, he tells me he is doing okay, but that is all I can really get from him, he falls back asleep, does not follow neurologic testing, I asked caregiver if there is any recent episodes of confusion, received more confused than normal, she says that he is about at baseline to her knowledge, I discussed his hyponatremia she does tell me that he does like drinking a lot of sugar-free Manuel-Aid, he has a lot of sugar-free drinks that he enjoys, he likes drinking a lot of fluids Review of Systems 2 General: Reports: ROS unobtainable due to mental status Medications/Allergies Home Medications Medication Instructions Recorded Confirmed Last Taken Type acetaminophen 325 mg capsule 650 mg PO Q4H PRN Pain 03/30/23 09/26/23 09/13/23 History (Tylenol) albuterol sulfate 90 mcg/actuation 2 puff inhalation 6XD PRN 03/30/23 09/26/23 Unknown History aerosol inhaler Shortness Of Breath Or Wheezing amlodipine 10 mg tablet 10 mg PO DAILY 03/30/23 09/26/23 09/13/23 09:00 History aripiprazole 20 mg tablet 10 mg PO DAILY 03/30/23 09/26/23 09/13/23 09:00 History aspirin 325 mg tablet,delayed 325 mg PO DAILY 03/30/23 09/26/23 09/13/23 09:00 History release atorvastatin 10 mg tablet 10 mg PO QPM 03/30/23 09/26/23 09/12/23 21:00 History benztropine 1 mg tablet 1 mg PO BID 03/30/23 09/26/23 09/13/23 09:00 History carbamazepine 200 mg tablet 200 mg PO TID 03/30/23 09/26/23 09/13/23 14:00 History carvedilol 25 mg tablet 25 mg PO BID 03/30/23 09/26/23 09/13/23 09:00 History fenofibrate 160 mg tablet 160 mg PO DAILY 03/30/23 09/26/23 09/13/23 09:00 History ferrous sulfate 325 mg (65 mg 325 mg PO DAILY 03/30/23 09/26/23 09/13/23 09:00 History iron) tablet glucose 4 gram chewable tablet 4 g PO DAILY PRN blood sugar 03/30/23 09/26/23 09/05/23 History (TRUEplus Glucose) insulin glargine 100 unit/mL (3 10 unit SUBCUT QPM 03/30/23 09/26/23 09/12/23 21:00 History mL) subcutaneous pen (Lantus Solostar U-100 Insulin) lurasidone 60 mg tablet 60 mg PO DAILY 03/30/23 09/26/23 09/13/23 09:00 History magnesium oxide 400 mg PO TID #90 tabs 03/30/23 09/26/23 09/13/23 14:00 Rx multivitamin with folic acid 400 1 tab PO DAILY 03/30/23 09/26/23 09/13/23 09:00 History mcg tablet (Daily-Sean (with folic acid)) insulin aspart U-100 100 unit/mL 15 unit (0.15 mL) SUBCUT QID #15 mL 05/09/23 09/26/23 09/13/23 12:00 Rx (3 mL) subcutaneous pen (Novolog FlexPen U-100 Insulin aspart) chlorthalidone 25 mg tablet 25 mg PO DAILY 07/18/23 09/26/23 09/13/23 09:00 History isosorbide mononitrate 60 mg 60 mg PO DAILY 07/18/23 09/26/23 09/13/23 09:00 History tablet,extended release 24 hr melatonin 5 mg tablet 10 mg PO QPM 07/18/23 09/26/23 09/12/23 21:00 History insulin aspart U-100 100 unit/mL 10 unit SUBCUT TIDWM 09/13/23 09/26/23 09/13/23 12:00 History (3 mL) subcutaneous pen (Novolog FlexPen U-100 Insulin aspart) cefdinir 300 mg capsule 300 mg PO BID #6 caps 09/17/23 09/26/23 Unknown Rx gabapentin 300 mg capsule 300 mg PO DAILY #30 caps 09/17/23 09/26/23 Unknown Rx blood sugar diagnostic (OneTouch #10 ea 09/26/23 09/26/23 Unknown History Ultra Test strips) lancets 33 gauge (TRUEplus Lancets) #100 ea 09/26/23 09/26/23 Unknown History pen needle, diabetic 31 gauge x #1,200 ea 09/26/23 09/26/23 Unknown History 5/16 (TechLITE Pen Needle) trazodone 100 mg tablet mg PO 09/26/23 09/26/23 Unknown History Allergies Allergy/AdvReac Type Severity Reaction Status Date / Time No Known Allergies Allergy Verified 09/26/23 09:11 PFSH Acute 2 PFSH: Medical History Acute kidney injury superimposed on CKD Acute hyponatremia Hyponatremia Anemia Hypervolemia Hyperlipemia, mixed Tobacco abuse Diabetes Social History Smoking and tobacco/nicotine status: current every day tobacco/nicotine user Vitals/I&O/Wt Last Vital Signs Temp 98.2 F 10/24/23 00:15 Pulse 59 L 10/24/23 01:50 Resp 17 10/24/23 01:50 BP 133/66 10/24/23 01:50 Pulse Ox 98 10/24/23 01:50 O2 Del Method Room Air 10/24/23 01:50 Weight last 48 hrs Weight 85.729 kg Physical Exam 2 Const: COMMON NORMALS: no acute distress Eye: COMMON NORMALS: Equal, round and reactive pupils present Resp: COMMON NORMALS: normal respiratory effort, No retractions, No use of accessory muscles and clear to auscultation bilaterally AUSCULTATION: clear to auscultation bilaterally Cardio: COMMON NORMALS: regular rate, regular rhythm, S1 normal heart sound present and S2 normal heart sound present RATE: regular rate RHYTHM: r egular rhythm HEART SOUNDS: S1 normal heart sound present and S2 normal heart sound present GI: COMMON NORMALS: Normal to inspection, nondistended, normoactive bowel sounds present, Soft to palpation and non-tender Extremity: COMMON NORMALS: no calf tenderness and no pedal edema Neuro: OTHER: Neurologic testing difficult to spontaneous movement of upper and lower extremities Data 10/24/23 00:43 10/24/23 03:00 A&P Assessment and plan (1) Hypoglycemia: (2) Acute renal failure: Qualifiers: Acute renal failure type: unspecified Qualified Code(s): N17.9 - Acute kidney failure, unspecified (3) Acute hyponatremia: Plan Acute hyponatremia -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 -Placed on fluid restrictions -Monitor sodium every 4 hours -Sodium is already improved from 1 15-1 18 -Will avoid hypertonic saline for now, -Hold chlorthalidone -Certainly Tegretol could be playing a role, but for now continue -Neurochecks, monitor mentation closely, speech therapy eval -Full code -Lovenox for DVT prophylaxis Hypoglycemia -Monitor blood sugars closely -Hold Lantus -Continue sliding scale Acute renal failure -He is about at baseline, monitor urine output monitor creatinine Attestations 2 Medical Necessity Statement*: Patient requires hospitalization for hyponatremia, inpatient, greater than 2 midnights Diagnoses Hypoglycemia E16.2 Acute renal failure N17.9 Acute renal failure type: unspecified Acute hyponatremia E87.1
[2023-10-24 04:32] LABS: Magnesium 2.2 mg/dL (1.7-2.3); Phosphorus 3.4 mg/dL (2.5-4.5)
[2023-10-24 04:33] LABS: Lactic Sepsis W/Reflex 0.9 mmol/L (0.5-2.2)
[2023-10-24 04:40] LABS: Procalcitonin 0.24 ng/mL (0-0.5)
[2023-10-24 04:59] LABS: Glucose Point of Care 214 mg/dL (70-110)
[2023-10-24 04:59] LABS: Glucose Point of Care 154 mg/dL (70-110)
[2023-10-24 05:07] LABS: Glucose Point of Care 204 mg/dL (70-110)
[2023-10-24] MEDS: pantoprazole 40 mg SDV IVP (05:36)
[2023-10-24 05:38] LABS: Estmated Average Glucose 131; Hemoglobin A1C 6.2 % (4.0-6.0)
[2023-10-24 05:41] LABS: Add Urine Culture? No; Add Urine Microscopic? YES; Bacteria Urine TRACE /hpf; Bilirubin Urine Neg (Negative); Blood Urine Neg (Negative); Glucose Urine UA Trace (Normal); Ketones Urine Negative (Negative); Leukocyte Esterase Urine Negative (Negative); Nitrate Urine Negative (Negative); Protein Urine 1+ (Negative); Specific Gravity, Urine 1.015 (1.005-1.030); Sulfosalicylic Acid Urine Negative (Negative); Urine Appearance Clear (CLEAR); Urine Color Colorless (Yellow); Urobilinogen Urine Neg (Negative); pH Urine 8 (5-7)
[2023-10-24 07:17] LABS: Chol HDL Ratio 2.43 mg/dL (1.0-5.00); Cholesterol 90 mg/dL (0-200); HDL Cholesterol 37 mg/dL (60-100); LDL Cholesterol Calculated 25 mg/dL (50-129); LDL HDL Ratio 0.68 RATIO (0.00-3.22); Thyroid Stimulating Hormone 0.61 uIU/mL (0.27-4.20); Triglycerides 138 mg/dL (0-150)
[2023-10-24 07:46] LABS: Sodium 119 mmol/L (136-145)
[2023-10-24 08:39] LABS: Glucose Point of Care 100 mg/dL (70-110)
--- NOTE | 2023-10-24 08:41 | PC.PHAR ---
PT UNABLE TO VERIFY MEDICATIONS...[facility] CURRENT MED LIST. 10/24/23
[2023-10-24] MEDS: heparin 5,000 unit/mL INJ 1 mL 5000 UNIT SUBCUT ×2 (09:17→20:08)
[2023-10-24] MEDS: aspirin 325 mg EC Tablet PO (09:18)
[2023-10-24] MEDS: isosorbide mononitrate ER 60 mg Tablet PO (09:18)
[2023-10-24] MEDS: gabapentin 300 mg Capsule PO (09:18)
[2023-10-24] MEDS: lurasidone 20 mg Tablet 60 MG PO (09:18)
[2023-10-24] MEDS: amlodipine 10 mg Tablet PO (09:18)
[2023-10-24] MEDS: carBAMazepine 200 mg Tablet PO ×3 (09:19→20:08)
[2023-10-24] MEDS: benztropine 1 mg Tablet PO ×2 (09:19→18:28)
[2023-10-24] MEDS: carvedilol 25 mg Tablet PO ×2 (09:19→18:28)
[2023-10-24] MEDS: ARIPiprazole 10 mg Tablet PO (09:20)
--- NOTE | 2023-10-24 09:36 | PC.PHAR ---
Addendum entered by Yaritza Dunn 10/24/23 09:42: NO INSULIN ON CURRENT MED LIST, BUT LEFT ON PT MEDICATION LIST DUE TO LAST FILL DATES AND LAST UPDATED MED LIST ON HOSPITAL MED LIST. UNABLE TO VERIFY WITH PT OR PHARMACY IF PT HAS STOPPED BOTH INSULINS. 10/24/23 Original Note: CURRENT PHARMACY MED LIST FROM [facility], USED TO RECONCILE MED LIST 10/24/23
--- NOTE | 2023-10-24 10:33 | PC.NURSE ---
DIRECTOR of [employer] Direct Contact Zara Christina [phone] Requesting updates from physician regarding future needs. Pt is his own guardian and often refuses medical care. If dire medical care required in the future such as dialysis, pt may require needs [facility] not able to provide and assisted placement may need considered.
[2023-10-24 11:35] LABS: Sodium 121 mmol/L (136-145)
[2023-10-24 12:08] LABS: Glucose Point of Care 150 mg/dL (70-110)
[2023-10-24] MEDS: insulin lispro 100 unit/1 mL SUBCUT (12:26)
[2023-10-24 16:00] LABS: Sodium 118 mmol/L (136-145)
[2023-10-24 17:16] LABS: Glucose Point of Care 114 mg/dL (70-110)
[2023-10-24 18:20] LABS: Potassium, Radom Urine 12 mmol/L; Urine Random Chloride 36 mmol/L; Urine Random Sodium 51 mmol/L
[2023-10-24] MEDS: atorvastatin 40 mg Tablet 10 MG PO (18:28)
[2023-10-24] MEDS: FUROsemide 10 mg/mL SDV 4mL 40 MG IVP (18:28)
--- NOTE | 2023-10-24 19:53 | PC.NURSE ---
Pt stated multiple times he had a lot of money in his wallet. For pt's safety, and with his permission, garcia counted to be $99. Witnessed by ZHANE Suarez. Offered to lock wallet in [facility]. Pt refused.
[2023-10-24 20:23] LABS: Glucose Point of Care 170 mg/dL (70-110)
[2023-10-24 21:34] LABS: Carbamazepine Tegretol 7.6 ug/mL (4.0-12.0)
[2023-10-24 21:50] LABS: Anion Gap 14.8 (5-19); Blood Urea Nitrogen 57 mg/dL (6-20); Calcium 9.2 mg/dL (8.5-10.5); Carbon Dioxide 23 mmol/L (22-29); Chloride 86 mmol/L (98-107); Glucose 117 mg/dL (65-115); Osmolality Calculated 265 mOsm/kg (285-295); Potassium 4.8 mmol/L (3.5-5.1)
[2023-10-24 21:58] LABS: Sodium 119 mmol/L (136-145)
[2023-10-24] MEDS: sodium chloride 3% 500 ML 30 ML IV (23:28)
[2023-10-25] VITALS (45 sets, daily range): BP systolic 146–187; BP diastolic 73–113; PULSE 53–118; RESP 12–19; TEMP 36.2–36.9; O2SAT 96–100
[2023-10-25 00:55] LABS: Sodium 120 mmol/L (136-145)
[2023-10-25] MEDS: morphine 4 mg/mL SDV 1 mL 1 MG IM (02:41)
[2023-10-25 04:15] LABS: Basophils % 0.5 %; Eosinophils # 0.1 10^3/uL (0.0-0.8); Eosinophils % 2.3 %; Hematocrit 25.9 % (37-53); Lymphocytes # 1.3 10^3/uL (0.8-4.8); Mean Corpuscular Hemoglobin 29.9 pg (27-33); Mean Corpuscular Volume 88.1 fl (82-101); Mean Platelet Volume 9.6 fL (7.4-10.4); Monocytes # 0.3 10^3/uL (0.2-0.9); Monocytes % 8.3 %; Neutrophils % 54.6 %; Nucleated Red Blood Cells % 0 %; Platelet Count 247 10^3/cmm (157-399); Red Blood Count 2.94 10^6/uL (3.85-5.65); Red Cell Distribution Width 13.2 % (12.1-15.1); White Blood Count 3.85 10^3/uL (3.29-11.43)
[2023-10-25 05:24] LABS: Alanine Aminotransferase 15 U/L (0-41); Albumin Level 3.7 g/dL (3.5-5.2); Alkaline Phosphatase 68 U/L (40-130); Anion Gap 15.8 (5-19); Aspartate Amino Transferase 27 U/L (0-40); Blood Urea Nitrogen 55 mg/dL (6-20); Calcium 9.2 mg/dL (8.5-10.5); Carbon Dioxide 25 mmol/L (22-29); Chloride 88 mmol/L (98-107); Globulin 2.8 g/dL (1.3-4.6); Glucose 68 mg/dL (65-115); Osmolality Calculated 271 mOsm/kg (285-295); Potassium 4.8 mmol/L (3.5-5.1); Sodium 124 mmol/L (136-145); Total Bilirubin 0.2 mg/dL (0.15-1.2); Total Protein 6.5 g/dL (6.6-8.7)
[2023-10-25] MEDS: pantoprazole 40 mg SDV IVP (05:24)
[2023-10-25 07:56] LABS: Glucose Point of Care 178 mg/dL (70-110)
[2023-10-25 08:16] LABS: Glucose Point of Care 63 mg/dL (70-110)
--- NOTE | 2023-10-25 08:18 | PC.NURSE ---
Blood sugar pf 63mg/dl . Was able to talk pt into drink 40 of grape juice. He had refused apple and orange juice. Will reheck blood sugar in 15-20 minutes.
[2023-10-25] MEDS: ARIPiprazole 10 mg Tablet PO (08:45)
[2023-10-25] MEDS: lurasidone 20 mg Tablet 60 MG PO (08:45)
[2023-10-25] MEDS: carBAMazepine 200 mg Tablet PO ×3 (08:46→19:47)
[2023-10-25] MEDS: ferrous sulfate EC 325 mg Tablet PO (08:46)
[2023-10-25] MEDS: sodium chloride 1 gm Tablet PO ×3 (08:46→19:47)
[2023-10-25] MEDS: benztropine 1 mg Tablet PO ×2 (08:46→17:17)
[2023-10-25] MEDS: gabapentin 300 mg Capsule PO (08:46)
[2023-10-25] MEDS: isosorbide mononitrate ER 60 mg Tablet PO (08:46)
[2023-10-25] MEDS: amlodipine 10 mg Tablet PO (08:46)
--- NOTE | 2023-10-25 08:50 | PC.NURSE ---
Pt finally allowed me to stick his finger to re check his blood sugar. 141mg/dl after 1.5 grape juices. He has refused breakfast but is interested in peanut butter and crackers, so that was provided. He was agreeable to take him am pilsl and allow the heparin injection. He continues to refuse his BP monitoring. He will allow O2 monitoring briefly. Sats 96% on room air. Noted bradycardia of 56. Coreg held. Dr Holcomb aware.
[2023-10-25] MEDS: aspirin 325 mg EC Tablet PO (08:51)
[2023-10-25 09:02] LABS: Glucose Point of Care 141 mg/dL (70-110)
[2023-10-25] MEDS: heparin 5,000 unit/mL INJ 1 mL 5000 UNIT SUBCUT ×2 (09:03→19:48)
[2023-10-25 10:02] LABS: Sodium 122 mmol/L (136-145)
--- NOTE | 2023-10-25 10:33 | PC.NURSE ---
Pt pulling off heart monitoring patches repeatedly. He has been up out of chair. Sitting on BS like a chair for a good portion of the morning. He is now sitting in the recliner. He had been obsessing with the electric cord to recliner, was able to move it and other things are distracting him now.
[2023-10-25] MEDS: insulin lispro 100 unit/1 mL SUBCUT ×2 (11:07→17:18)
[2023-10-25 11:13] LABS: Glucose Point of Care 193 mg/dL (70-110)
--- NOTE | 2023-10-25 11:56 | P.PN_ITS ---
Subjective 2 Subjective: Hospital course, labs appreciated. Today morning seen sitting up in chair in ICU. As per nursing staff patient has had episode of confusion which is most likely his baseline. On examination patient is awake and alert, able to follow directions but has incoherent speech. He is directable but has episodes of confusion. Blood pressure slightly elevated, bradycardia, saturating well on room air. Urine output appreciated. Vitals/I&O/Wt Last Vital Signs Temp 98.4 F 10/25/23 00:32 Pulse 53 L 10/25/23 08:41 Resp 15 10/25/23 08:41 BP 163/83 10/25/23 06:30 Pulse Ox 100 10/25/23 08:41 O2 Del Method Room Air 10/25/23 08:41 FiO2 21 10/24/23 05:31 10/24/23 10/25/23 10/25/23 22:59 06:59 14:59 Intake Total 570 / 630 76 / 706 Output Total 1450 / 3150 Balance 570 / -1070 -1374 / -2444 Weight last 48 hrs Weight 68.946 kg Weight 69.354 kg Weight 85.729 kg Physical Exam 2 Const: COMMON NORMALS: no acute distress Eye: COMMON NORMALS: Equal, round and reactive pupils present PUPIL: Yes Equal, round and reactive pupils present Resp: COMMON NORMALS: normal respiratory effort, No retractions, No use of accessory muscles and clear to auscultation bilaterally AUSCULTATION: clear to auscultation bilaterally Cardio: COMMON NORMALS: regular rate, regular rhythm, S1 normal heart sound present and S2 normal heart sound present RATE: regular rate RHYTHM: r egular rhythm HEART SOUNDS: S1 normal heart sound present and S2 normal heart sound present GI: COMMON NORMALS: Normal to inspection, nondistended, normoactive bowel sounds present, Soft to palpation and non-tender PALPATION: Yes Soft to palpation Extremity: COMMON NORMALS: no calf tenderness and no pedal edema Neuro: OTHER: Neurologic testing difficult to spontaneous movement of upper and lower extremities Data 10/25/23 04:09 10/25/23 09:05 A&P Assessment and plan (1) Hypoglycemia: (2) Acute renal failure: Qualifiers: Acute renal failure type: unspecified Qualified Code(s): N17.9 - Acute kidney failure, unspecified (3) Acute hyponatremia: Plan 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 Most likely in setting of patient's baseline diagnosis of intellectual disability. Patient definitely is on multiple medications which can also cause hyponatremia including carbamazepine, lurasidone. Appreciate low osmolality on admission, urine lites. Sodium level improving up to 124 today. Check sodium levels every 8 hours. Fluid restriction up to 1500 cc. Difficult to maintain fluid restriction with the patient because of baseline mentation. I doubt he is receiving fluid restriction even at home so we will relax today. If needed will substitute with Lasix. Start on oral salt tablets 1 g 3 times daily. If needed will plan for 3% normal saline fluid bolus. Hypoglycemia: Patient does have history of type 2 diabetes mellitus. On insulin at home. Most likely hypoglycemia in setting of renal dysfunction. A1c of 6.2. Patient has had overall 2 units of insulin since admission. For now continue with sliding scale and hypoglycemia protocol. Most likely will discharge patient on insulin sliding scale as well. Renal dysfunction: CKD. Creatinine at baseline. On previous admission was deemed not a good candidate for dialysis given the patient's baseline mentation and as patient is at a facility where he cannot transfer for dialysis. Though patient has good urine output. Renal functions currently at baseline. Medical reconciliation done for nephrotoxic drugs. Goal blood pressure less than 140/90 mmHg. Holding off on Coreg for now given bradycardia. Continue with amlodipine 10 mg oral daily, Imdur 60 mg oral daily. Continue with home dose of lisinopril. If needed will restart home dose of clonidine. 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
--- NOTE | 2023-10-25 12:05 | PC.NURSE ---
Pt allowed cardiac monitoring on and BP to be taken. He is currently resting with eyes closed in bed. Bed alarm set. [facility] stopped by, this nurse declined for pt to be disturbed at this time. Updates provided.
--- NOTE | 2023-10-25 13:20 | PC.NURSE ---
Pt's nap did not last long. He got out of bed to use BSC. He is now sitting up in chair. He wants to go smoke his one cigarette, he has even asked this nurse to go buy him one. He has pulled off monitoring wires again. He has had snacks. He has playing cards, magazines and a bubble popping toy.
[2023-10-25] MEDS: lisinopril 20 mg Tablet 40 MG PO (13:48)
[2023-10-25 16:53] LABS: Glucose Point of Care 220 mg/dL (70-110)
[2023-10-25 17:06] LABS: Sodium 122 mmol/L (136-145)
[2023-10-25] MEDS: atorvastatin 40 mg Tablet 10 MG PO (17:17)
--- NOTE | 2023-10-25 18:11 | PC.NURSE ---
Shift summary: Pt has been busy today. He has been up and down, across the room. He is unsteady on his feet. He needs assistance while up. He talked about wanting his wheelchair, which we explained was still at home. He does not like finger sticks or lab sticks. He has been agreeable to this care after about 1000. He has repeatedly removed the monitoring wires and refused most BP checks. He has ate well today, after the breakfast refusal. He did have a blood sugar of 63mg/dl this am, after grape juice, peanut butter and crackers his blood sugars have been greater than 140. He did received insulin at lunch and dinner per sliding scale. He has had 1800 of urine out put this shift. His sodium level has stayed 122 this shift. His mood and cooperativeness have improved throughout the day
[2023-10-25] MEDS: trazodone 50 mg Tablet PO (19:47)
[2023-10-25 21:22] LABS: Glucose Point of Care 202 mg/dL (70-110)
--- NOTE | 2023-10-25 22:21 | PC.NURSE ---
Assumed care of the pt at this time.
--- NOTE | 2023-10-25 22:25 | PC.NURSE ---
Patient repeatedly removes telemetry, pulse ox, BP cuff. Patient instructed as to why it is important we monitor. Patient is weak and requires 1-2 person assist to bedside commode. Hand off of patient to Chuy Vasquez, @ 2200. Patient's bed alarm set.
[2023-10-26] VITALS (17 sets, daily range): BP systolic 152–176; BP diastolic 70–85; PULSE 71–81; RESP 13–21; TEMP 36.7–37.1; O2SAT 95–99
[2023-10-26 00:58] LABS: Sodium 127 mmol/L (136-145)
[2023-10-26 01:10] LABS: Glucose Point of Care 122 mg/dL (70-110)
[2023-10-26] MEDS: hyDRALAzine 20 mg/mL INJ 1 mL 10 MG IVP (02:16)
[2023-10-26] MEDS: pantoprazole 40 mg SDV IVP (04:49)
[2023-10-26 05:12] LABS: Basophils % 0.6 %; Eosinophils # 0.1 10^3/uL (0.0-0.8); Eosinophils % 1.7 %; Hematocrit 29.5 % (37-53); Lymphocytes # 1.2 10^3/uL (0.8-4.8); Lymphocytes % 26.4 %; Mean Corpuscular HGB Conc 33.2 g/dL (30-55); Mean Corpuscular Hemoglobin 30.4 pg (27-33); Mean Corpuscular Volume 91.6 fl (82-101); Mean Platelet Volume 9.7 fL (7.4-10.4); Monocytes # 0.4 10^3/uL (0.2-0.9); Monocytes % 9.4 %; Neutrophils # 2.89 10^3/uL (1.8-7.7); Neutrophils % 61.7 %; Nucleated Red Blood Cells % 0 %; Platelet Count 258 10^3/cmm (157-399); Red Blood Count 3.22 10^6/uL (3.85-5.65); Red Cell Distribution Width 13.2 % (12.1-15.1); White Blood Count 4.69 10^3/uL (3.29-11.43)
[2023-10-26 05:41] LABS: Alanine Aminotransferase 17 U/L (0-41); Albumin Level 3.9 g/dL (3.5-5.2); Alkaline Phosphatase 80 U/L (40-130); Blood Urea Nitrogen 57 mg/dL (6-20); Calcium 9.3 mg/dL (8.5-10.5); Carbon Dioxide 21 mmol/L (22-29); Chloride 89 mmol/L (98-107); Globulin 2.6 g/dL (1.3-4.6); Glucose 98 mg/dL (65-115); Osmolality Calculated 274 mOsm/kg (285-295); Sodium 124 mmol/L (136-145); Total Bilirubin 0.2 mg/dL (0.15-1.2); Total Protein 6.5 g/dL (6.6-8.7)
[2023-10-26 05:42] LABS: Magnesium 2.4 mg/dL (1.7-2.3)
[2023-10-26 05:43] LABS: Anion Gap 18.8 (5-19); Aspartate Amino Transferase 29 U/L (0-40); Potassium 4.8 mmol/L (3.5-5.1)
[2023-10-26 05:57] LABS: Folate Level 18.6 ng/mL (4.5-32.2)
[2023-10-26 07:41] LABS: Glucose Point of Care 131 mg/dL (70-110)
[2023-10-26] MEDS: benztropine 1 mg Tablet PO (08:00)
[2023-10-26] MEDS: lurasidone 20 mg Tablet 60 MG PO (08:00)
[2023-10-26] MEDS: sodium chloride 1 gm Tablet PO ×2 (08:01→14:29)
[2023-10-26] MEDS: amlodipine 10 mg Tablet PO (08:01)
[2023-10-26] MEDS: lisinopril 20 mg Tablet 40 MG PO (08:01)
[2023-10-26] MEDS: aspirin 325 mg EC Tablet PO (08:01)
[2023-10-26] MEDS: carBAMazepine 200 mg Tablet PO ×2 (08:01→14:29)
[2023-10-26] MEDS: ferrous sulfate EC 325 mg Tablet PO (08:01)
[2023-10-26] MEDS: ARIPiprazole 10 mg Tablet PO (08:01)
[2023-10-26] MEDS: heparin 5,000 unit/mL INJ 1 mL 5000 UNIT SUBCUT (08:02)
[2023-10-26] MEDS: gabapentin 300 mg Capsule PO (08:02)
[2023-10-26] MEDS: isosorbide mononitrate ER 60 mg Tablet PO (08:02)
[2023-10-26 08:41] LABS: Sodium 129 mmol/L (136-145)
--- NOTE | 2023-10-26 10:39 | PM.DCS ---
Discharge Providers Date of Admission: 10/24/23 04:26 Date of Discharge: October 26, 2023 Attending Provider at Admission: Enrique Valdes MD Attending Provider at Discharge: Jose F Napier MD Primary Care Provider: Ahsan Gilliam MD Diagnoses at Discharge Discharge Diagnosis (1) Hypoglycemia: Status: Acute (2) Acute renal failure: Status: Acute Qualifiers: Acute renal failure type: unspecified Qualified Code(s): N17.9 - Acute kidney failure, unspecified (3) Acute hyponatremia: Status: Acute Reason for Visit Reason for Visit: hypoglycemia Brief History: History as per HPI: Tyrese Leach is a 53 year old male with a past medical history of intellectual disability, history of chronic renal disease stage IV-V, none insulin-dependent type 2 diabetes mellitus, history of hyponatremia who presents to [facility] due to hypoglycemic episode and hyponatremia. Currently patient is alert to person, not to place, not to time caregiver at bedside tells me that he is mostly nonverbal, he can say a few words here and there, he can feed himself he does not really ambulate, this evening he did not have much of a dinner, he ate some oatmeal, subsequently he was given 10 units of insulin, off the sliding scale, and then another 14 units, is not exactly clear why he was given 2 doses of sliding scale or was in fact the 10 units of insulin that he received was glargine, caregiver at bedside is unsure, nonetheless patient had hypoglycemic episode at 38, became nonresponsive, received D10 by EMS, here blood sugars were in the 160s, caregiver at bedside tells me that he is much more alert and awake, back to his normal self, on my examination, he does awaken, he tells me he is doing okay, but that is all I can really get from him, he falls back asleep, does not follow neurologic testing, I asked caregiver if there is any recent episodes of confusion, received more confused than normal, she says that he is about at baseline to her knowledge, I discussed his hyponatremia she does tell me that he does like drinking a lot of sugar-free Manuel-Aid, he has a lot of sugar-free drinks that he enjoys, he likes drinking a lot of fluids. Hospital Course Hospital Course Patient was admitted to the ICU for further evaluation and management of persistent hypoglycemia along with acute hyponatremia. 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 He was started on conservative treatment with fluid restriction and regular sodium checks. His sodium levels improved gradually with salt tablets, fluid restriction and occasional diuretics. He is found to have hypoglycemia also because of increased dosage of insulin at home along with erratic behavior and eating. His blood sugars have been stable though he has been requiring less insulin during hospitalization. He was also found to have normal blood pressure during hospitalization for which his antihypertensives were further adjusted. He has been discharged in hemodynamically stable condition with advised to take salt tablets 3 times a day along with fluid restriction up to 1500 cc. If he is not able to maintain no restriction less than 1500 cc he should take 20 mg of oral Lasix daily. He should have a repeat checkup sodium levels in 1 week. For hypoglycemia he has been discharged on insulin sliding scale which has been provided at discharge. Lantus has been withheld. He is to check his blood sugars daily at home and maintain a blood sugar diary 3 times a day and follow-up with a primary care provider for further adjustment of antidiabetic medications as needed. For high blood pressures he is to continue taking carvedilol, amlodipine, lisinopril and Imdur as before though his home dose of clonidine 0.3 3 times a day has been stopped. Due to hyponatremia chlorthalidone has been has been discontinued. He is to check his blood pressure daily at home and maintain a blood pressure diary and follow-up with a primary care provider within next 1 week. Blood pressure should be less than 140/90 mmHg. Discharge plan discussed in detail with patient's caregiver Eliz over the phone. All the questions were answered. Physical Exam Const: COMMON NORMALS: no acute distress Eye: COMMON NORMALS: Equal, round and reactive pupils present PUPIL: Yes Equal, round and reactive pupils present Resp: COMMON NORMALS: normal respiratory effort, No retractions, No use of accessory muscles and clear to auscultation bilaterally AUSCULTATION: clear to auscultation bilaterally Cardio: COMMON NORMALS: regular rate, regular rhythm, S1 normal heart sound present and S2 normal heart sound present RATE: regular rate RHYTHM: regular rhythm HEART SOUNDS: S1 normal heart sound present and S2 normal heart sound present GI: COMMON NORMALS: Normal to inspection, nondistended, normoactive bowel sounds present, Soft to palpation and non-tender PALPATION: Yes Soft to palpation Extremity: COMMON NORMALS: no calf tenderness and no pedal edema Neuro: OTHER: Neurologic testing difficult to spontaneous movement of upper and lower extremities Discharge Data Studies Completed and Pending Pending at discharge Category Date Time Status MAG [Magnesium] AM LABS Lab 10/27/23 04:00 Ordered MAG [Magnesium] AM LABS Lab 10/28/23 04:00 Ordered Laboratory Results WBC 4.69 10^3/uL (3.29-11.43) 10/26/23 05:02 RBC 3.22 10^6/uL (3.85-5.65) L 10/26/23 05:02 Hgb 9.80 g/dL (11.27-16.99) L 10/26/23 05:02 Hct 29.5 % (37-53) L 10/26/23 05:02 MCV 91.6 fl (82-101) 10/26/23 05:02 MCH 30.4 pg (27-33) 10/26/23 05:02 MCHC 33.2 g/dL (30-55) 10/26/23 05:02 RDW 13.2 % (12.1-15.1) 10/26/23 05:02 Plt Count 258 10^3/cmm (157-399) 10/26/23 05:02 MPV 9.7 fL (7.4-10.4) 10/26/23 05:02 Neut % (Auto) 61.7 % 10/26/23 05:02 Lymph % (Auto) 26.4 % 10/26/23 05:02 [place] % (Auto) 9.4 % 10/26/23 05:02 Eos % (Auto) 1.7 % 10/26/23 05:02 Baso % (Auto) 0.6 % 10/26/23 05:02 Neut # (Auto) 2.89 10^3/uL (1.8-7.7) 10/26/23 05:02 Lymph # (Auto) 1.2 10^3/uL (0.8-4.8) 10/26/23 05:02 [place] # (Auto) 0.4 10^3/uL (0.2-0.9) 10/26/23 05:02 Eos # (Auto) 0.1 10^3/uL (0.0-0.8) 10/26/23 05:02 Baso # (Auto) 0.0 10^3/uL (0.0-0.1) 10/26/23 05:02 Nucleated RBC % (auto) 0 % 10/26/23 05:02 Nucleated RBCs # 0.0 /100WBC 10/26/23 05:02 Sodium 129 mmol/L (136-145) L 10/26/23 08:10 Potassium 4.8 mmol/L (3.5-5.1) 10/26/23 05:02 Chloride 89 mmol/L (98-107) L 10/26/23 05:02 Carbon Dioxide 21 mmol/L (22-29) L 10/26/23 05:02 Anion Gap 18.8 (5-19) 10/26/23 05:02 BUN 57 mg/dL (6-20) H 10/26/23 05:02 Creatinine 4.4 mg/dL (0.7-1.2) H 10/26/23 05:02 GFR Calculation 17.0 mL/min (90-130) L 10/26/23 05:02 Glucose 98 mg/dL (65-115) 10/26/23 05:02 POC Glucose 131 mg/dL (70-110) H 10/26/23 07:22 Estimat Average Glucose 131 10/24/23 00:43 Hemoglobin A1c 6.2 % (4.0-6.0) H 10/24/23 00:43 Calculated Osmolality 274 mOsm/kg (285-295) L 10/26/23 05:02 Lactic Acid 0.9 mmol/L (0.5-2.2) 10/24/23 00:43 Calcium 9.3 mg/dL (8.5-10.5) 10/26/23 05:02 Phosphorus 3.4 mg/dL (2.5-4.5) 10/24/23 03:00 Magnesium 2.4 mg/dL (1.7-2.3) H 10/26/23 05:02 Total Bilirubin 0.2 mg/dL (0.15-1.2) 10/26/23 05:02 AST 29 U/L (0-40) 10/26/23 05:02 ALT 17 U/L (0-41) 10/26/23 05:02 Alkaline Phosphatase 80 U/L (40-130) 10/26/23 05:02 Total Protein 6.5 g/dL (6.6-8.7) L 10/26/23 05:02 Albumin 3.9 g/dL (3.5-5.2) 10/26/23 05:02 Globulin 2.6 g/dL (1.3-4.6) 10/26/23 05:02 Triglycerides 138 mg/dL (0-150) 10/24/23 06:36 Cholesterol 90 mg/dL (0-200) 10/24/23 06:36 LDL Cholesterol, Calc 25 mg/dL (50-129) L 10/24/23 06:36 HDL Cholesterol 37 mg/dL (60-100) L 10/24/23 06:36 LDL/HDL Ratio 0.68 RATIO (0.00-3.22) 10/24/23 06:36 Cholesterol/HDL Ratio 2.43 mg/dL (1.0-5.00) 10/24/23 06:36 Folate 18.6 ng/mL (4.5-32.2) 10/26/23 05:02 Procalcitonin 0.24 ng/mL (0-0.5) 10/24/23 03:00 TSH 0.61 uIU/mL (0.27-4.20) 10/24/23 06:36 Urine Color Colorless (Yellow) 10/24/23 05:23 Urine Appearance Clear (CLEAR) 10/24/23 05:23 Urine pH 8 (5-7) H 10/24/23 05:23 Ur Specific [place] 1.015 (1.005-1.030) 10/24/23 05:23 Urine Protein 1+ (Negative) H 10/24/23 05:23 Urine Glucose (UA) Trace (Normal) H 10/24/23 05:23 Urine Ketones Negative (Negative) 10/24/23 05:23 Urine Blood Neg (Negative) 10/24/23 05:23 Urine Nitrate Negative (Negative) 10/24/23 05:23 Urine Bilirubin Neg (Negative) 10/24/23 05:23 Prot Sulfosalicylic Acd Negative (Negative) 10/24/23 05:23 Urine Urobilinogen Neg mg/dL (Negative) 10/24/23 05:23 Ur Leukocyte Esterase Negative (Negative) 10/24/23 05:23 Urine RBC None /hpf (0-2) 10/24/23 05:23 Urine WBC None /hpf (0-5) 10/24/23 05:23 Ur Squamous Epith Cells None /hpf (0-5) 10/24/23 05:23 Amorphous Sediment Not Reportable 10/24/23 05:23 Urine Bacteria Trace /hpf (NONE) 10/24/23 05:23 Ur Random Sodium 51 mmol/L 10/24/23 05:23 Ur Random Potassium 12 mmol/L 10/24/23 05:23 Ur Random Chloride 36 mmol/L 10/24/23 05:23 Carbamazepine 7.6 ug/mL (4.0-12.0) 10/24/23 14:48 Vitals Last Vital Signs Temp 98.3 F 10/26/23 07:30 Pulse 73 10/26/23 09:30 Resp 15 10/26/23 09:30 BP 152/85 10/26/23 08:15 Pulse Ox 97 10/26/23 09:30 O2 Del Method Room Air 10/26/23 09:30 FiO2 21 10/24/23 05:31 Discharge Plan Discharge Patient Disposition: Home Condition: Stable Prescriptions: New sodium chloride 1,000 mg Tablet,Soluble 1,000 mg PO TID Qty: 90 0RF furosemide [Lasix] 20 mg tablet 20 mg PO DAILY Qty: 30 0RF Continued melatonin 5 mg tablet 10 mg PO BEDTIME isosorbide mononitrate 60 mg tablet extended release 24 hr 60 mg PO DAILY (DME) OneTouch Ultra Test Strip See Rx Instructions .ROUTE .MEDSUPPLY Qty: 10 Rx Instructions: As directed (DME) pen needle, diabetic [TechLITE Pen Needle] 31 gauge x 5/16 needle See Rx Instructions .ROUTE .MEDSUPPLY Qty: 1200 Rx Instructions: As directed (DME) lancets [TRUEplus Lancets] 33 gauge misc See Rx Instructions .ROUTE .MEDSUPPLY Qty: 100 Rx Instructions: As directed carvedilol 25 mg Tablet 25 mg PO BID Rx Instructions: must administer with a meal/food. Hold if systolic BP is below 90 or diastolic BP below 60. atorvastatin 10 mg Tablet 10 mg PO BEDTIME carbamazepine 200 mg Tablet 200 mg PO TID aspirin 325 mg tablet,delayed release (DR/EC) 650 mg PO Q4H PRN (Reason: Pain) amlodipine 10 mg Tablet 10 mg PO DAILY ferrous sulfate 325 mg (65 mg iron) Tablet 325 mg PO DAILY benztropine 1 mg Tablet 1 mg PO BID fenofibrate 160 mg Tablet 160 mg PO DAILY acetaminophen [Tylenol] 325 mg Capsule 650 mg PO Q4H PRN (Reason: Pain) multivitamin with folic acid [Daily-Sean (with folic acid)] 400 mcg tablet 1 tab PO DAILY lurasidone 60 mg Tablet 60 mg PO DAILY Rx Instructions: must administer with food (at least 350 calories) magnesium oxide 400 mg magnesium tablet 400 mg PO TID Qty: 90 0RF trazodone 50 mg tablet 50 mg PO BEDTIME pantoprazole 40 mg tablet,delayed release (DR/EC) 40 mg PO DAILY gabapentin 300 mg capsule 300 mg PO TID lisinopril 40 mg tablet 40 mg PO DAILY aripiprazole 10 mg tablet 10 mg PO QAM Changed insulin aspart U-100 [Novolog FlexPen U-100 Insulin] 100 unit/mL (3 mL) Insulin Pen See Protocol SUBCUT TIDWM Qty: 15 0RF Protocol: Insulin Corrective High-Dose Regimen Condition: Fingerstick Blood Glucose Dose/Route: Insulin Units Condition: 141-180 mg/dl Dose/Route: 2 units/SQ Condition: 181-220 mg/dl Dose/Route: 4 units/SQ Condition: 221-260 mg/dl Dose/Route: 6 units/SQ Condition: 261-300 mg/dl Dose/Route: 8 units/SQ Condition: 301-350 mg/dl Dose/Route: 10 units/SQ Condition: 351-400 mg/dl Dose/Route: 12 units/SQ Condition: greater than 400 mg/dl Dose/Route: 14 units/SQ Rx Instructions: 141?180? 2 units, 181-220-4 units, 221-260-6 units, 261-300-8 units, 301-350-10 units, 351-400-12 units Discontinued chlorthalidone 25 mg tablet 25 mg PO DAILY insulin glargine [Lantus Solostar U-100 Insulin] 100 unit/mL (3 mL) Insulin Pen 10 unit SUBCUT QPM clonidine HCl 0.3 mg tablet 0.3 mg PO Q8H Discharge Orders: Discharge Order (Routine); Ordered 10/26/23 Ordered By: Jose F Napier Referrals: Ahsan Gilliam MD [Primary Care Provider] - 11/02/23 8:30 am (appoointment scheduled for follow up :Please see date and time: ) Discharge Diet: Cardiac Discharge Activity: Resume usual activity and Increase activity as tolerated Patient Instructions: Furosemide (By mouth), Sodium Chloride (By mouth), How to Stop Smoking (DC), Acute Kidney Injury (DC), Hyponatremia (DC), Hypoglycemia in a Person with Diabetes (DC), Fluid Restriction (DC), Altered Mental Status (ED), What to Do if Your Blood Sugar is Low (DC), Opioid Safety Activity Restrictions/Additional Instructions: Check blood sugar diary daily at home maintain a blood sugar diary and follow-up with a primary care provider within next 1 week. Going forward give insulin as per sliding scale as below 141?180? 2 units, 181-220-4 units, 221-260-6 units, 261-300-8 units, 301-350-10 units, 351-400-12 units Fluid restriction should be maintained to less than 8696-5881 cc/day. If not able to maintain fluid restriction he should take 20 mg of oral Lasix daily. Take salt tablets 1 g 3 times a day. Repeat BMP in 1 week. Clonidine has been stopped for high blood pressure. Chlorthalidone has been stopped due to hyponatremia. Continue all other antihypertensives as before. Check your blood pressure daily at home maintain a blood pressure diary and follow-up with a primary care provider within next 1 week for further adjustment of blood pressure medications as needed. Goal blood pressure is less than 140/90 mmHg. Discharge Attestations Time Spent in Discharge Care*: greater than 30 min Specific Discharge Activities: educating patient, educating and/or supporting family/caregiver, discussing with pcp/other providers, discussing with special education case manager/social workers/dc planners, documenting/other paperwork and evaluating patient/reviewing data Status at Discharge: Cognitive status at discharge: moderately impaired cognition, Behavioral status at discharge: cooperative and can be uncooperative, Functional status at discharge: independent ambulation, Overall status at discharge: patient is back to baseline Quality Metrics Clinical Quality Measures [ No reported AMI, CVA or VTE this stay] Coding Level of Care Code 65128 Total time (in minutes) for Discharge: 60 Diagnoses Hypoglycemia E16.2 Acute renal failure N17.9 Acute renal failure type: unspecified Acute hyponatremia E87.1
[2023-10-26 11:30] LABS: Glucose Point of Care 299 mg/dL (70-110)
[2023-10-26] MEDS: insulin lispro 100 unit/1 mL SUBCUT (11:37)
--- NOTE | 2023-10-26 14:33 | PC.NURSE ---
Discahrge instructions provided and discussed mostly with the caregiver. Insulin Sliding scale and salt tablets and fluid restrictions explicitly discussed. No questions.
== END 2023-10-26 14:30 | disposition home or self-care (01) | DRG 638 ==
LOC: ER 04:06 → ICU 04:27
PROVIDERS: Admitting Provider Family Medicine; Emergency Provider Emergency Medicine; PCP Family Medicine; Visit Provider Student in an Organized Health Care Education/Training Program
DX: E11.649 Type 2 diabetes mellitus with hypoglycemia without coma (principal); E87.1 Hypo-osmolality and hyponatremia; N17.9 Acute kidney failure, unspecified; N18.4 Chronic kidney disease, stage 4 (severe); Z79.4 Long term (current) use of insulin; E78.2 Mixed hyperlipidemia; F17.210 Nicotine dependence, cigarettes, uncomplicated; F79 Unspecified intellectual disabilities; R00.1 Bradycardia, unspecified; R63.1 Polydipsia; E11.22 Type 2 diabetes mellitus with diabetic chronic kidney disease
CPT/HCPCS: 36415; 36416; 80048; 80053; 80061; 80156; 81001; 82436; 82746; 82962; 83036; 83605; 83735; 84100; 84133; 84145; 84295; 84300; 84443; 85025; 92523; 92610; 94664; 96372; 99285; C9113; J0360; J1644; J1815; J1940; J2270; J7030; J7131

== ENCOUNTER 2023-10-29 21:49 | Emergency (ER) | payer MEDICAID, SELFPAY ==
[2023-10-29 21:50] VITALS: BP 157/85; PULSE 102; RESP 18; TEMP 36.7; O2SAT 97; BMI 23.6
[2023-10-29 21:59] LABS: Glucose Point of Care 151 mg/dL (70-110)
--- NOTE | 2023-10-29 22:09 | ED_ITS ---
HPI - General Adult 2 General: Chief complaint: General Medical Stated complaint: hypoglycemia Time Seen by Provider: 10/29/23 21:53 History of Present Illness: Patient arrived by EMS with complaints of low blood sugar. Patient blood sugar at facility was 37. He was altered. EMS gave him 100 mL of D10 and his blood sugar increased to 127 and he became more alert. Patient is his normal self. Patient is mentally challenged and lives in a fdc. Patient was recently discharged from the hospital within the last couple days due to a similar effect of his insulin and sugar but also his sodium was very low at approximately 115. EMS said patient relieved insulin at approximately 1730. Review of Systems 2 General: Reports: 10 or more systems reviewed and unremarkable except in HPI and below PFSH ED 2 PFSH: Medical History Acute renal failure Acute kidney injury superimposed on CKD Acute hyponatremia Hyponatremia Anemia Hypervolemia Hyperlipemia, mixed Tobacco abuse Diabetes Social History Smoking and tobacco/nicotine status: current every day tobacco/nicotine user Physical Exam 2 Const: COMMON NORMALS: no acute distress, average body habitus, healthy appearing, alert and well nourished HENMT: COMMON NORMALS: normocephalic, atraumatic, hearing grossly normal bilaterally, external ears normal, Normal external nose present, moist oral mucous membranes and oropharynx normal HEAD & SCALP: normocephalic and atraumatic NOSE: Normal external nose present EXTERNAL EAR: Yes external ears normal Neck/C-Spine: COMMON NORMALS: no JVD Chest: COMMONS NORMALS: normal inspection of the chest and normal palpation of entire chest wall Resp: COMMON NORMALS: normal respiratory effort, No retractions, No use of accessory muscles and clear to auscultation bilaterally AUSCULTATION: clear to auscultation bilaterally Cardio: COMMON NORMALS: no JVD, regular rate, regular rhythm, S1 normal heart sound present, S2 normal heart sound present, No gallops present (Cardio), No clicks present (Cardio) and No murmurs present (Cardio) RATE: regular rate RHYTHM: regular rhythm HEART SOUNDS: S1 normal heart sound present and S2 normal heart sound present GI: COMMON NORMALS: Normal to inspection, nondistended, normoactive bowel sounds present, Soft to palpation, non-tender, No hepatosplenomegaly present and no masses PALPATION: Yes Soft to palpation and Yes No hepatosplenomegaly present Neuro: SENSORIUM/ORIENTATION: Yes alert Course 2 Vital Signs: Vital signs: Vital Signs Temperature 98.0 F 10/29/23 21:50 Pulse Rate 102 H 10/29/23 21:50 Respiratory Rate 18 10/29/23 21:50 Blood Pressure 157/85 10/29/23 21:50 Pulse Oximetry 97 10/29/23 21:50 Oxygen Delivery Me thod Room Air 10/29/23 21:50 MDM - General Adult Medical Decision Making Patient had lab work done that revealed a sodium is 129, BUN/creatinine chronically elevated 61 4.5. Chronically anemic at hemoglobin 8.8. Patient was allowed to eat and drink and was serially blood tested his sugar and it continued to rise. I think this is just due to a missed direction of them giving him the wrong dose of insulin. We educated them on the correct use of the sliding scale and hopefully this helps. Patient be discharged back to the facility Differential Diagnosis Hypoglycemia secondary to insulin, Medical Records I reviewed the patient's medical records. Lab Data I reviewed the patient's lab results. 10/29/23 22:26 10/29/23 23:32 Laboratory Results WBC 5.91 10^3/uL (3.29-11.43) 10/29/23 22: RBC 2.87 10^6/uL (3.85-5.65) L 10/29/23 22: Hgb 8.80 g/dL (11.27-16.99) L 10/29/23: Hct 26.3 % (37-53) L 10/29/23 22: MCV 91.6 fl (82-101) 10/29/23 22: MCH 30.7 pg (27-33) 10/29/23: MCHC 33.5 g/dL (30-55) 10/29/23: RDW 13.6 % (12.1-15.1) 10/29/23 22: Plt Count 280 10^3/cmm (157-399) 10/29/23 22: MPV 9.7 fL (7.4-10.4) 10/29/23 22: Neut % (Auto) 75.1 % 10/29/23 22: Lymph % (Auto) 16.2 % 10/29/23 22: [place] % (Auto) 5.8 % 10/29/23 22: Eos % (Auto) 1.9 % 10/29/23 22: Baso % (Auto) 0.7 % 10/29/23 22: Neut # (Auto) 4.44 10^3/uL (1.8-7.7) 10/29/23 22: Lymph # (Auto) 1.0 10^3/uL (0.8-4.8) 10/29/23 22: [place] # (Auto) 0.3 10^3/uL (0.2-0.9) 10/29/23 22: Eos # (Auto) 0.1 10^3/uL (0.0-0.8) 10/29/23 22: Baso # (Auto) 0.0 10^3/uL (0.0-0.1) 10/29/23 22: Nucleated RBC % (auto) 0 % 10/29/23 22: Nucleated RBCs # 0.0 /100WBC 10/29/23 22:26 Sodium 129 mmol/L (136-145) L 10/29/23 23:32 Potassium 5.3 mmol/L (3.5-5.1) H 10/29/23 23:32 Chloride 90 mmol/L (98-107) L 10/29/23 23:32 Carbon Dioxide 25 mmol/L (22-29) 10/29/23 23:32 Anion Gap 19.3 (5-19) H 10/29/23 23:32 BUN 61 mg/dL (6-20) H 10/29/23 23:32 Creatinine 4.5 mg/dL (0.7-1.2) H 10/29/23 23:32 GFR Calculation 16.6 mL/min (90-130) L 10/29/23 23:32 Glucose 127 mg/dL (65-115) H 10/29/23 23:32 POC Glucose 145 mg/dL (70-110) H 10/29/23 22:50 Calculated Osmolality 287 mOsm/kg (285-295) 10/29/23 23:32 Calcium 9.8 mg/dL (8.5-10.5) 10/29/23 23:32 Total Bilirubin 0.2 mg/dL (0.15-1.2) 10/29/23 23:32 AST 32 U/L (0-40) 10/29/23 23:32 ALT 19 U/L (0-41) 10/29/23 23:32 Alkaline Phosphatase 73 U/L (40-130) 10/29/23 23:32 Total Protein 7.3 g/dL (6.6-8.7) 10/29/23 23:32 Albumin 4.2 g/dL (3.5-5.2) 10/29/23 23:32 Globulin 3.1 g/dL (1.3-4.6) 10/29/23 23:32 All radiology interpretation(s) finalized by discharge Discharge Plan Discharge Patient Disposition: Home Clinical Impression: Hypoglycemia Condition: Stable Prescriptions: No Action melatonin 5 mg tablet 10 mg PO BEDTIME isosorbide mononitrate 60 mg tablet extended release 24 hr 60 mg PO DAILY (DME) OneTouch Ultra Test Strip See Rx Instructions .ROUTE .MEDSUPPLY Qty: 10 Rx Instructions: As directed (DME) pen needle, diabetic [TechLITE Pen Needle] 31 gauge x 5/16 needle See Rx Instructions .ROUTE .MEDSUPPLY Qty: 1200 Rx Instructions: As directed (DME) lancets [TRUEplus Lancets] 33 gauge misc See Rx Instructions .ROUTE .MEDSUPPLY Qty: 100 Rx Instructions: As directed carvedilol 25 mg Tablet 25 mg PO BID Rx Instructions: must administer with a meal/food. Hold if systolic BP is below 90 or diastolic BP below 60. atorvastatin 10 mg Tablet 10 mg PO BEDTIME carbamazepine 200 mg Tablet 200 mg PO TID aspirin 325 mg tablet,delayed release (DR/EC) 650 mg PO Q4H PRN (Reason: Pain) amlodipine 10 mg Tablet 10 mg PO DAILY ferrous sulfate 325 mg (65 mg iron) Tablet 325 mg PO DAILY benztropine 1 mg Tablet 1 mg PO BID fenofibrate 160 mg Tablet 160 mg PO DAILY acetaminophen [Tylenol] 325 mg Capsule 650 mg PO Q4H PRN (Reason: Pain) multivitamin with folic acid [Daily-Sean (with folic acid)] 400 mcg tablet 1 tab PO DAILY lurasidone 60 mg Tablet 60 mg PO DAILY Rx Instructions: must administer with food (at least 350 calories) magnesium oxide 400 mg magnesium tablet 400 mg PO TID Qty: 90 0RF trazodone 50 mg tablet 50 mg PO BEDTIME pantoprazole 40 mg tablet,delayed release (DR/EC) 40 mg PO DAILY gabapentin 300 mg capsule 300 mg PO TID lisinopril 40 mg tablet 40 mg PO DAILY aripiprazole 10 mg tablet 10 mg PO QAM sodium chloride 1,000 mg Tablet,Soluble 1,000 mg PO TID Qty: 90 0RF Lasix 20 mg tablet 20 mg PO DAILY Qty: 30 0RF Novolog FlexPen U-100 Insulin 100 unit/mL (3 mL) Insulin Pen See Protocol SUBCUT TIDWM Qty: 15 0RF Protocol: Insulin Corrective High-Dose Regimen Condition: Fingerstick Blood Glucose Dose/Route: Insulin Units Condition: 141-180 mg/dl Dose/Route: 2 units/SQ Condition: 181-220 mg/dl Dose/Route: 4 units/SQ Condition: 221-260 mg/dl Dose/Route: 6 units/SQ Condition: 261-300 mg/dl Dose/Route: 8 units/SQ Condition: 301-350 mg/dl Dose/Route: 10 units/SQ Condition: 351-400 mg/dl Dose/Route: 12 units/SQ Condition: greater than 400 mg/dl Dose/Route: 14 units/SQ Rx Instructions: 141?180? 2 units, 181-220-4 units, 221-260-6 units, 261-300-8 units, 301-350-10 units, 351-400-12 units Discharge Orders: Discharge ED (Routine); Ordered 10/30/23 Ordered By: Heladio Anthony Referrals: Ahsan Gilliam MD [Primary Care Provider] - 1 week Patient Instructions: Hypoglycemia in a Person with Diabetes (DC), What to Do if Your Blood Sugar is Low (ED) Coding Level of Care Code ED Referral Manager for Maria R Garrison
[2023-10-29 22:31] LABS: Basophils % 0.7 %; Eosinophils # 0.1 10^3/uL (0.0-0.8); Eosinophils % 1.9 %; Hematocrit 26.3 % (37-53); Lymphocytes % 16.2 %; Mean Corpuscular HGB Conc 33.5 g/dL (30-55); Mean Corpuscular Hemoglobin 30.7 pg (27-33); Mean Corpuscular Volume 91.6 fl (82-101); Mean Platelet Volume 9.7 fL (7.4-10.4); Monocytes # 0.3 10^3/uL (0.2-0.9); Monocytes % 5.8 %; Neutrophils # 4.44 10^3/uL (1.8-7.7); Neutrophils % 75.1 %; Nucleated Red Blood Cells % 0 %; Platelet Count 280 10^3/cmm (157-399); Red Blood Count 2.87 10^6/uL (3.85-5.65); Red Cell Distribution Width 13.6 % (12.1-15.1); White Blood Count 5.91 10^3/uL (3.29-11.43)
[2023-10-29 22:52] LABS: Glucose Point of Care 145 mg/dL (70-110)
[2023-10-29 23:00] VITALS: BP 165/80; PULSE 75; O2SAT 100
[2023-10-29 23:53] LABS: Alanine Aminotransferase 19 U/L (0-41); Albumin Level 4.2 g/dL (3.5-5.2); Alkaline Phosphatase 73 U/L (40-130); Anion Gap 19.3 (5-19); Aspartate Amino Transferase 32 U/L (0-40); Blood Urea Nitrogen 61 mg/dL (6-20); Calcium 9.8 mg/dL (8.5-10.5); Carbon Dioxide 25 mmol/L (22-29); Chloride 90 mmol/L (98-107); Globulin 3.1 g/dL (1.3-4.6); Glomerular Filtration Rate 16.6 mL/min (90-130); Glucose 127 mg/dL (65-115); Osmolality Calculated 287 mOsm/kg (285-295); Potassium 5.3 mmol/L (3.5-5.1); Sodium 129 mmol/L (136-145); Total Bilirubin 0.2 mg/dL (0.15-1.2); Total Protein 7.3 g/dL (6.6-8.7)
[2023-10-30] VITALS: BP 156/73; PULSE 81; O2SAT 100
[2023-10-30 00:29] LABS: Glucose Point of Care 187 mg/dL (70-110)
== END 2023-10-30 01:01 | disposition home or self-care (01) ==
PROVIDERS: Emergency Provider Emergency Medicine; PCP Family Medicine
DX: E11.649 Type 2 diabetes mellitus with hypoglycemia without coma (principal); E11.22 Type 2 diabetes mellitus with diabetic chronic kidney disease; N18.9 Chronic kidney disease, unspecified; E78.2 Mixed hyperlipidemia; Z72.0 Tobacco use; Z79.82 Long term (current) use of aspirin; Z79.4 Long term (current) use of insulin
CPT/HCPCS: 36415; 36416; 80053; 82962; 85025; 99283

== ENCOUNTER 2023-11-13 14:42 | Emergency (ER) | payer MEDICAID, SELFPAY ==
[2023-11-13 14:55] VITALS: PULSE 96; RESP 16; TEMP 37.1; O2SAT 100; BMI 22.1
--- NOTE | 2023-11-13 15:12 | XRR_ITS ---
PROCEDURE INFORMATION: Exam: XR Right Hand Exam date and time: 11/13/2023 3:17 PM Age: 53 years old Clinical indication: Injury or trauma; Fall; Blunt trauma (contusions or hematomas); Hand; Right TECHNIQUE: Imaging protocol: Radiologic exam of the right hand. Views: 3 or more views. COMPARISON: No relevant prior studies available. FINDINGS: Bones/joints: Normal. Soft tissues: Normal. XR/XR hand RT min 3V* [id number] IMPRESSION: No acute findings.
--- NOTE | 2023-11-13 15:12 | XRR_ITS ---
PROCEDURE INFORMATION: Exam: XR Left Hand Exam date and time: 11/13/2023 3:13 PM Age: 53 years old Clinical indication: Injury or trauma; Fall; Blunt trauma (contusions or hematomas); Hand; Left TECHNIQUE: Imaging protocol: Radiologic exam of the left hand. Views: 3 or more views. COMPARISON: No relevant prior studies available. 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 No aggressive features. No acute fracture or dislocation. Soft tissues: Normal. XR/XR hand LT min 3V* [id number] IMPRESSION: No acute fracture or dislocation.
--- NOTE | 2023-11-13 15:13 | W.ED.FALL ---
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 Staff states patient had gotten angry and was trying to punch his staff when he fell from his wheelchair. Patient states he injured his hands and his wrists. He denies any other pain or injury at this time. complaint: fall Onset (ago): hour(s) Fall from: wheelchair Fall witnessed: yes, by living facility staff Place fall occurred: home Loss of consciousness: None Prolonged down time: no Symptoms prior to fall: none Context: other (was trying to punch staff) Location of injury - extremities: Bilateral: hand Severity: mild Associated symptoms-after fall: Reports no associated symptoms; Denies headache(s) or neck pain Review of Systems Musc: Reports: extremity pain (bilateral hands) and joint pain (bilateral wrists); Denies: neck pain, back pain, extremity swelling or joint swelling Neuro: Denies: headache(s) PFSH ED PFSH: Medical History Acute renal failure Acute kidney injury superimposed on CKD Acute hyponatremia Hyponatremia Anemia Hypervolemia Hyperlipemia, mixed Tobacco abuse Diabetes Social History Smoking and tobacco/nicotine status: current every day tobacco/nicotine user Physical Exam Const: COMMON NORMALS: no acute distress, alert and well nourished EXAM LIMITATIONS: other limitations (pt with intellectual disability) GENERAL APPEARANCE: cooperative HENMT: COMMON NORMALS: normocephalic and atraumatic HEAD & SCALP: normal to inspection, normocephalic and atraumatic FACE & SINUS: normal facial exam Eye: GENERAL EYE: appearance normal, both eyes and all related structures Neck/C-Spine: COMMON NORMALS: full ROM CERVICAL SPINE: No Cervical spine tenderness, No step off deformity and No Paracervical muscle tenderness Chest: COMMONS NORMALS: normal inspection of the chest Resp: COMMON NORMALS: normal respiratory effort Back/Pelvis: COMMON NORMALS: thoracic and lumbar spine normal to inspection and no thoracic nor lumbar tenderness Extremity: COMMON NORMALS: full ROM, capillary refill normal, no joint enlargement, no clubbing, cyanosis or edema, no calf tenderness and no pedal edema GENERAL: Yes normal exam except as noted RIGHT UPPER EXTREMITY: Yes wrist and Yes hand & digits LEFT UPPER EXTREMITY: Yes wrist and Yes hand & digits OTHER: TTP throughout bilateral hand/wrists; exam inconsistent secondary to his intellectual disabilities; no clinical objective findings of edema or bony deformities Neuro: COMMON NORMALS: moves all extremities, no focal motor deficits and no sensory deficits noted SENSORIUM/ORIENTATION: Yes alert Course Vital Signs: Vital signs: Vital Signs Temperature 98.8 F 11/13/23 14:55 Pulse Rate 96 11/13/23 14:55 Respiratory Rate 16 11/13/23 14:55 Pulse Oximetry 100 11/13/23 14:55 Oxygen Delivery Me thod Room Air 11/13/23 14:55 MDM - Fall Medical Decision Making No acute fractures noted on his XRs. 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 We will have him follow-up with his primary care provider for this. They can make the decision for further imaging or to refer to orthopedics if needed. Medical Records I reviewed the patient's medical records. Lab Data Radiology Impressions Hand X-Ray 11/13/23 15:12 IMPRESSION: No acute fracture or dislocation. All radiology interpretation(s) finalized by discharge Discharge Plan Discharge Patient Disposition: Home Clinical Impression: Lesion of bone of wrist Accidental fall from wheelchair Qualifiers: Encounter type: initial encounter Qualified Code(s): W05.0XXA - Fall from non-moving wheelchair, initial encounter Condition: Stable Prescriptions: No Action melatonin 5 mg tablet 10 mg PO BEDTIME isosorbide mononitrate 60 mg tablet extended release 24 hr 60 mg PO DAILY (DME) OneTouch Ultra Test Strip See Rx Instructions .ROUTE .MEDSUPPLY Qty: 10 Rx Instructions: As directed (DME) pen needle, diabetic [TechLITE Pen Needle] 31 gauge x 5/16 needle See Rx Instructions .ROUTE .MEDSUPPLY Qty: 1200 Rx Instructions: As directed (DME) lancets [TRUEplus Lancets] 33 gauge misc See Rx Instructions .ROUTE .MEDSUPPLY Qty: 100 Rx Instructions: As directed carvedilol 25 mg Tablet 25 mg PO BID Rx Instructions: must administer with a meal/food. Hold if systolic BP is below 90 or diastolic BP below 60. atorvastatin 10 mg Tablet 10 mg PO BEDTIME carbamazepine 200 mg Tablet 200 mg PO TID aspirin 325 mg tablet,delayed release (DR/EC) 650 mg PO Q4H PRN (Reason: Pain) amlodipine 10 mg Tablet 10 mg PO DAILY ferrous sulfate 325 mg (65 mg iron) Tablet 325 mg PO DAILY benztropine 1 mg Tablet 1 mg PO BID fenofibrate 160 mg Tablet 160 mg PO DAILY acetaminophen [Tylenol] 325 mg Capsule 650 mg PO Q4H PRN (Reason: Pain) multivitamin with folic acid [Daily-Sean (with folic acid)] 400 mcg tablet 1 tab PO DAILY lurasidone 60 mg Tablet 60 mg PO DAILY Rx Instructions: must administer with food (at least 350 calories) magnesium oxide 400 mg magnesium tablet 400 mg PO TID Qty: 90 0RF trazodone 50 mg tablet 50 mg PO BEDTIME pantoprazole 40 mg tablet,delayed release (DR/EC) 40 mg PO DAILY gabapentin 300 mg capsule 300 mg PO TID lisinopril 40 mg tablet 40 mg PO DAILY aripiprazole 10 mg tablet 10 mg PO QAM sodium chloride 1,000 mg Tablet,Soluble 1,000 mg PO TID Qty: 90 0RF Lasix 20 mg tablet 20 mg PO DAILY Qty: 30 0RF Novolog FlexPen U-100 Insulin 100 unit/mL (3 mL) Insulin Pen See Protocol SUBCUT TIDWM Qty: 15 0RF Protocol: Insulin Corrective High-Dose Regimen Condition: Fingerstick Blood Glucose Dose/Route: Insulin Units Condition: 141-180 mg/dl Dose/Route: 2 units/SQ Condition: 181-220 mg/dl Dose/Route: 4 units/SQ Condition: 221-260 mg/dl Dose/Route: 6 units/SQ Condition: 261-300 mg/dl Dose/Route: 8 units/SQ Condition: 301-350 mg/dl Dose/Route: 10 units/SQ Condition: 351-400 mg/dl Dose/Route: 12 units/SQ Condition: greater than 400 mg/dl Dose/Route: 14 units/SQ Rx Instructions: 141?180? 2 units, 181-220-4 units, 221-260-6 units, 261-300-8 units, 301-350-10 units, 351-400-12 units Discharge Orders: Discharge ED (Routine); Ordered 11/13/23 Ordered By: Modesta Talbot Referrals: Ahsan Gilliam MD [Primary Care Provider] - Activity Restrictions/Additional Instructions: As we discussed I do not visualize any acute fractures on patient's hand or wrist films. As we discussed on his left films there was a bony lesion to the left distal radius. This will need to be followed up with his primary care provider. They can determine the need for specialized care such as orthopedics if indicated. Coding Level of Care Code ED Legal Office Administrator for Maria R Garrison
== END 2023-11-13 15:38 | disposition home or self-care (01) ==
PROVIDERS: Emergency Provider Physician Assistant; PCP Family Medicine
DX: M89.9 Disorder of bone, unspecified (principal); W05.0XXA Fall from non-moving wheelchair, initial encounter; Z79.4 Long term (current) use of insulin; E11.22 Type 2 diabetes mellitus with diabetic chronic kidney disease; N18.9 Chronic kidney disease, unspecified; E78.2 Mixed hyperlipidemia; Z72.0 Tobacco use; Y92.199 Unspecified place in other specified residential institution as the place of occurrence of the external cause
CPT/HCPCS: 73130; 99283

== ENCOUNTER → 2023-11-28 09:55 | Outpatient (BNVA) | payer MEDICAID, SELFPAY | PROVIDERS: PCP Family Medicine; Visit Provider Internal Medicine | DX: E13.69 Other specified diabetes mellitus with other specified complication (principal); Z79.4 Long term (current) use of insulin; E78.2 Mixed hyperlipidemia; N18.6 End stage renal disease | CPT/HCPCS: 99214 ==

== ENCOUNTER 2023-12-07 10:53 | Emergency (ER) | payer MEDICAID, SELFPAY ==
[2023-12-07] VITALS (9 sets, daily range): BP systolic 130–145; BP diastolic 61–76; PULSE 81–96; RESP 15–18; TEMP 36.8; O2SAT 95–100; BMI 22.4
--- NOTE | 2023-12-07 11:00 | ECG_ITS ---
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 Measurements Intervals Mcbee Rate: 87 P: 71 OH: 205 QRS: -43 QRSD: 109 T: 32 QT: 383 QTc: 463 Interpretive Statements SINUS RHYTHM LEFT AXIS DEVIATION [QRS AXIS < -30] PATTERN CONSISTENT WITH PULMONARY DISEASE MINIMAL VOLTAGE CRITERIA FOR LVH, CONSIDER NORMAL VARIANT [MEETS CRITERIA IN ONE OF: R(aVL), S(V1), R(V5), R(V5/V6)+S(V1)] SEPTAL MYOCARDIAL INFARCTION , OF INDETERMINATE AGE [40+ ms Q WAVE IN V1/V2] Compared to ECG 07/18/2023 12:57:59 Left-axis deviation now present First degree AV block no longer present Left anterior fascicular block no longer present Myocardial infarct finding still present Electronically Signed On 12-07-2023 17:42:09 LEATHER PIECE INSPECTOR by Yovanny Pinon M.D. [id number]
--- NOTE | 2023-12-07 11:00 | XR_ITS ---
WS: [id number] Portable AP semiupright chest, 12/07/2023 Clinical Data: cp Comparison: Portable chest, 09/14/2023 Findings: No nodules, masses or effusions are seen. The heart is enlarged. The pulmonary vascularity is not increased. No pneumonia or pneumothorax is seen. Impression: Cardiomegaly.
--- NOTE | 2023-12-07 11:01 | W.ED.CHESTPA ---
HPI - Chest Pain General: Chief Complaint: Chest Pain Stated Complaint: chest pain Time Seen by Provider: 12/07/23 10:59 Source: patient and EMS Mode of arrival: EMS Limitations: no limitations History of Present Illness: 53-year-old male with a history of chronic kidney disease he also has intellectual disability lives with a caregiver and he states he started having some chest pain this morning at 8 AM. He states his pains improved currently he denies any shortness of breath denies any nausea denies any diaphoresis. Denies any worse improved factors. Associated symptoms: Deny abdominal pain, dyspnea, fever(s), nausea or vomiting Review of Systems Const: Denies: fever(s), chills, body aches or change in appetite ENMT: Denies: throat pain or dental pain Card: Reports: chest pain Resp: Denies: dyspnea GI: Denies: abdominal pain, nausea, vomiting or diarrhea Musc: Denies: neck pain or back pain Skin/Breast: Denies: rash Neuro: Denies: headache(s) PFSH ED PFSH: Medical History Hyperlipemia, mixed Acute renal failure Acute kidney injury superimposed on CKD Acute hyponatremia Hyponatremia Anemia Hypervolemia Tobacco abuse Diabetes Social History Smoking and tobacco/nicotine status: current every day tobacco/nicotine user Physical Exam Const: COMMON NORMALS: no acute distress, patient oriented x3 and healthy appearing HENMT: COMMON NORMALS: normocephalic and atraumatic HEAD & SCALP: normocephalic and atraumatic Neck/C-Spine: COMMON NORMALS: full ROM and supple Chest: COMMONS NORMALS: normal inspection of the chest and normal palpation of entire chest wall Resp: COMMON NORMALS: normal respiratory effort, No retractions, No use of accessory muscles and clear to auscultation bilaterally AUSCULTATION: clear to auscultation bilaterally Cardio: COMMON NORMALS: regular rate, regular rhythm and No murmurs present (Cardio) RATE: regular rate RHYTHM: regular rhythm GI: COMMON NORMALS: Normal to inspection, nondistended, normoactive bowel sounds present, Soft to palpation, non-tender and no masses PALPATION: Yes Soft to palpation Extremity: COMMON NORMALS: normal to inspection and full ROM Neuro: COMMON NORMALS: patient oriented x3, moves all extremities and no focal motor deficits Psych: COMMON NORMALS: mental status grossly normal, Normal thought process present and cooperative THOUGHT PROCESS: Normal thought process present Skin: COMMON NORMALS: no rashes or lesions noted and no wounds GENERAL SKIN EXAM: no rashes or lesions noted Course Vital Signs: Vital signs: Vital Signs Temperature 98.3 F 12/07/23 11:00 Pulse Rate 86 12/07/23 13:45 Respiratory Rate 16 12/07/23 13:45 Blood Pressure 140/69 12/07/23 13:45 Pulse Oximetry 99 12/07/23 13:45 Oxygen Delivery Me thod Room Air 12/07/23 11:00 MDM - Chest Pain Medical Decision Making Patient presents for chest pain is atypical in nature he is pain-free here now and sleeping history of bone and has a negative delta no signs of ACS he stable for discharge follow-up with PCP return if worsening Medical Records I reviewed the patient's medical records. Lab Data I reviewed the patient's lab results. 12/07/23 11:35 12/07/23 11:35 Laboratory Results WBC 6.15 10^3/uL (3.29-11.43) 12/07/23 11:35 RBC 2.41 10^6/uL (3.85-5.65) L 12/07/23 11:35 Hgb 7.40 g/dL (11.27-16.99) L 12/07/23 11:35 Hct 22.6 % (37-53) L 12/07/23 11:35 MCV 93.8 fl (82-101) 12/07/23 11:35 MCH 30.7 pg (27-33) 12/07/23 11:35 MCHC 32.7 g/dL (30-55) 12/07/23 11:35 RDW 14.3 % (12.1-15.1) 12/07/23 11:35 Plt Count 209 10^3/cmm (157-399) 12/07/23 11:35 MPV 9.5 fL (7.4-10.4) 12/07/23 11:35 Neut % (Auto) 69.4 % 12/07/23 11:35 Lymph % (Auto) 21.5 % 12/07/23 11:35 [place] % (Auto) 7.2 % 12/07/23 11:35 Eos % (Auto) 1.1 % 12/07/23 11:35 Baso % (Auto) 0.5 % 12/07/23 11:35 Neut # (Auto) 4.27 10^3/uL (1.8-7.7) 12/07/23 11:35 Lymph # (Auto) 1.3 10^3/uL (0.8-4.8) 12/07/23 11:35 [place] # (Auto) 0.4 10^3/uL (0.2-0.9) 12/07/23 11:35 Eos # (Auto) 0.1 10^3/uL (0.0-0.8) 12/07/23 11:35 Baso # (Auto) 0.0 10^3/uL (0.0-0.1) 12/07/23 11:35 Nucleated RBC % (auto) 0 % 12/07/23 11:35 Nucleated RBCs # 0.0 /100WBC 12/07/23 11:35 Sodium 131 mmol/L (136-145) L 12/07/23 11:35 Potassium 4.2 mmol/L (3.5-5.1) 12/07/23 11:35 Chloride 97 mmol/L (98-107) L 12/07/23 11:35 Carbon Dioxide 25 mmol/L (22-29) 12/07/23 11:35 Anion Gap 13.2 (5-19) 12/07/23 11:35 BUN 45 mg/dL (6-20) H 12/07/23 11:35 Creatinine 4.3 mg/dL (0.7-1.2) H 12/07/23 11:35 GFR Calculation 17.5 mL/min (90-130) L 12/07/23 11:35 Glucose 211 mg/dL (65-115) H 12/07/23 11:35 Calculated Osmolality 290 mOsm/kg (285-295) 12/07/23 11:35 Calcium 8.6 mg/dL (8.5-10.5) 12/07/23 11:35 Total Bilirubin 0.2 mg/dL (0.15-1.2) 12/07/23 11:35 AST 23 U/L (0-40) 12/07/23 11:35 ALT 14 U/L (0-41) 12/07/23 11:35 Alkaline Phosphatase 89 U/L (40-130) 12/07/23 11:35 Troponin T Baseline 74 ng/L (0-15) H 12/07/23 11:35 Troponin T 120 Minute 68.88 ng/L (0-15) H 12/07/23 13:35 Delta Troponin T -5.12 ABS# (0-10) L 12/07/23 13:35 Total Protein 5.9 g/dL (6.6-8.7) L 12/07/23 11:35 Albumin 3.6 g/dL (3.5-5.2) 12/07/23 11:35 Globulin 2.3 g/dL (1.3-4.6) 12/07/23 11:35 Lipase 156 U/L (13-60) H 12/07/23 11:35 All radiology interpretation(s) finalized by discharge EKG Data EKG 1: I personally reviewed and interpreted this EKG as follows: EKG interpretation date: 12/07/23 EKG interpretation time: 11:02 Interpretation: nsr hr [address] elevation qrs 109 qtc 428 EKG 2: I personally reviewed and interpreted this EKG as follows: EKG interpretation date: 12/07/23 EKG interpretation time: 13:00 Interpretation: nsr hr [address] or t wave abnormalities qrs 111 qtc 426 Discharge Plan Discharge Patient Disposition: Home Clinical Impression: Chest pain Condition: Stable Prescriptions: No Action isosorbide mononitrate 60 mg tablet extended release 24 hr 60 mg PO DAILY@09 (DME) OneTouch Ultra Test Strip See Rx Instructions .ROUTE .MEDSUPPLY Qty: 10 Rx Instructions: As directed (DME) pen needle, diabetic [TechLITE Pen Needle] 31 gauge x 5/16 needle See Rx Instructions .ROUTE .MEDSUPPLY Qty: 1200 Rx Instructions: As directed (DME) lancets [TRUEplus Lancets] 33 gauge misc See Rx Instructions .ROUTE .MEDSUPPLY Qty: 100 Rx Instructions: As directed carvedilol 25 mg Tablet 25 mg PO BID@09,21 Rx Instructions: must administer with a meal/food. Hold if systolic BP is below 90 or diastolic BP below 60. atorvastatin 10 mg Tablet 10 mg PO BEDTIME@21 carbamazepine 200 mg Tablet 200 mg PO TID@,, aspirin 325 mg tablet,delayed release (DR/EC) 650 mg PO Q4H PRN (Reason: Pain) amlodipine 10 mg Tablet 10 mg PO DAILY@09 ferrous sulfate 325 mg (65 mg iron) Tablet 325 mg PO DAILY@09 benztropine 1 mg Tablet 1 mg PO BID@,21 fenofibrate 160 mg Tablet 160 mg PO DAILY@09 acetaminophen [Tylenol] 325 mg Capsule 650 mg PO Q4H PRN (Reason: Pain) multivitamin with folic acid [Daily-Sean (with folic acid)] 400 mcg tablet 1 tab PO DAILY@09 gabapentin 300 mg capsule 300 mg PO DAILY@09 hydralazine 10 mg tablet 10 mg PO QID Rx Instructions: @09:00,14:00,1800,21:00 trazodone 100 mg tablet 100 mg PO BEDTIME@21 aripiprazole 15 mg tablet 15 mg PO DAILY@09 Novolog FlexPen U-100 Insulin 100 unit/mL (3 mL) insulin pen See Rx Instructions .ROUTE .COMPLEX Rx Instructions: sliding scale subcutaneously tid Eucerin Cream 1 applic TOPICAL DAILY PRN (Reason: unknown) Latuda 120 mg tablet 60 mg PO BID@, magnesium oxide 400 mg magnesium tablet 400 mg PO TID@,, Discharge Orders: Discharge ED (Routine); Ordered 12/07/23 Ordered By: Oneida De Anda Referrals: Ahsan Gilliam MD [Primary Care Provider] - Discharge Diet: Advance as tolerated Discharge Activity: Resume usual activity Patient Instructions: Chest Pain (ED) Coding Level of Care Code ED Behavioral Instructor for Maria R Garrison
[2023-12-07 11:42] LABS: Basophils % 0.5 %; Eosinophils # 0.1 10^3/uL (0.0-0.8); Eosinophils % 1.1 %; Hematocrit 22.6 % (37-53); Lymphocytes # 1.3 10^3/uL (0.8-4.8); Lymphocytes % 21.5 %; Mean Corpuscular HGB Conc 32.7 g/dL (30-55); Mean Corpuscular Hemoglobin 30.7 pg (27-33); Mean Corpuscular Volume 93.8 fl (82-101); Mean Platelet Volume 9.5 fL (7.4-10.4); Monocytes # 0.4 10^3/uL (0.2-0.9); Monocytes % 7.2 %; Neutrophils # 4.27 10^3/uL (1.8-7.7); Neutrophils % 69.4 %; Nucleated Red Blood Cells % 0 %; Platelet Count 209 10^3/cmm (157-399); Red Blood Count 2.41 10^6/uL (3.85-5.65); Red Cell Distribution Width 14.3 % (12.1-15.1); White Blood Count 6.15 10^3/uL (3.29-11.43)
--- NOTE | 2023-12-07 11:54 | PC.PHAR ---
pt is from [facility]-pts caregiver falicity verified pts medications-falicity states the pts aspirin 325mg daily filled 09/14/23 90d/s-clonidine0.3mg q8h filled 11/29/23 30d/s-chlorthalidone 25mg daily filled 11/29/23 30d/s-lasix 20mg daily filled 10/26/23 30d/s-lisinopril 40mg daily filled 11/29/23 30d/s-melatonin 5mg take 10mg hs filled 10/23/23 90d/s-pantoprazole 40mg daily filled 11/29/23 30d/s and sodium chloride 1000mg tid filled 10/26/22 30d/s states all the listed above medications have been dced-states the pt does not take lantus solostar ext shows last filled 08/15/23 30d/s 5 units hs-states the pts novolog flexpen was changed from 15 units qid per ss states now uses ss tid-states the pt takes 300mg daily ext shows last filled 300mg tid filled on 11/29/23 30d/s-pts mar has trazodone 100mg hs ext shows last filled 09/19/23 30d/s ext also shows 50mg hs filled 10/03/23 30d/s pts caregiver states the pt is taking 100mg hs-
[2023-12-07 12:04] LABS: Troponin(5th) Baseline 74 ng/L (0-15)
[2023-12-07 12:06] LABS: Alanine Aminotransferase 14 U/L (0-41); Albumin Level 3.6 g/dL (3.5-5.2); Alkaline Phosphatase 89 U/L (40-130); Anion Gap 13.2 (5-19); Aspartate Amino Transferase 23 U/L (0-40); Blood Urea Nitrogen 45 mg/dL (6-20); Calcium 8.6 mg/dL (8.5-10.5); Carbon Dioxide 25 mmol/L (22-29); Chloride 97 mmol/L (98-107); Globulin 2.3 g/dL (1.3-4.6); Glomerular Filtration Rate 17.5 mL/min (90-130); Glucose 211 mg/dL (65-115); Lipase 156 U/L (13-60); Osmolality Calculated 290 mOsm/kg (285-295); Potassium 4.2 mmol/L (3.5-5.1); Sodium 131 mmol/L (136-145); Total Bilirubin 0.2 mg/dL (0.15-1.2); Total Protein 5.9 g/dL (6.6-8.7)
--- NOTE | 2023-12-07 13:00 | ECG_ITS ---
[facility] Test Date: 2023-12-07 Pat Name: Tyrese Leach Department: Room: Gender: Male [employer]: : 1970 Requested By: Oneida De Anda Order Number: [id number] Debora MD: Yovanny Pinon M.D. Measurements Intervals [place] Rate: 81 P: 54 [place]: 206 QRS: -38 QRSD: 111 T: 33 QT: 389 QTc: 452 Interpretive Statements SINUS RHYTHM LEFT AXIS DEVIATION [QRS AXIS < -30] PATTERN CONSISTENT WITH PULMONARY DISEASE MINIMAL VOLTAGE CRITERIA FOR LVH, CONSIDER NORMAL VARIANT [MEETS CRITERIA IN ONE OF: R(aVL), S(V1), R(V5), R(V5/V6)+S(V1)] SEPTAL MYOCARDIAL INFARCTION , OF INDETERMINATE AGE [40+ ms Q WAVE IN V1/V2] Compared to ECG 12/07/2023 11:02:07 No significant changes Electronically Signed On 12-07-2023 18:03:50 COMMAND AND CONTROL SPECIALIST by Yovanny Pinon M.D. [id number]
[2023-12-07 14:12] LABS: Troponin 5 2HR 68.88 ng/L (0-15)
[2023-12-07 14:14] LABS: Troponin 5 2HR Delta -5.12 ABS# (0-10)
== END 2023-12-07 14:45 | disposition home or self-care (01) ==
PROVIDERS: Emergency Provider Emergency Medicine; PCP Family Medicine
DX: R07.9 Chest pain, unspecified (principal); Z79.82 Long term (current) use of aspirin; Z79.4 Long term (current) use of insulin; E78.2 Mixed hyperlipidemia; E11.22 Type 2 diabetes mellitus with diabetic chronic kidney disease; N18.9 Chronic kidney disease, unspecified; Z72.0 Tobacco use
CPT/HCPCS: 36415; 71045; 80053; 83690; 84484; 85025; 93005; 99285

== ENCOUNTER 2024-01-13 22:12 | Emergency (ER) | payer MEDICAID, SELFPAY ==
[2024-01-13] VITALS (8 sets, daily range): BP systolic 130–173; BP diastolic 80–101; PULSE 70–84; RESP 11–16; TEMP 36.4; O2SAT 98–100
--- NOTE | 2024-01-13 22:18 | XRR_ITS ---
PROCEDURE INFORMATION: Exam: XR Chest Exam date and time: 01/13/2024 10:23 PM Age: 53 years old Clinical indication: Chest pressure; Patient HX: C/O chest pain TECHNIQUE: Imaging protocol: Radiologic exam of the chest. Views: 1 view. COMPARISON: CR XR chest 1V portable [id number] 12/07/2023 11:58 AM FINDINGS: Lungs: Clear, symmetrically inflated lungs. Pleural spaces: No pleural effusion. No pneumothorax. Heart/Mediastinum: Stable moderate cardiomegaly. Bones/joints: Chronic appearing left acromial process fracture. No acute bony injury. XR/XR chest 1V portable [id number] IMPRESSION: Moderate cardiomegaly. No findings to suggest heart failure. Clear lungs.
--- NOTE | 2024-01-13 22:18 | ED_ITS ---
HPI - Chest Pain 2 General: Chief Complaint: Chest Pain Stated Complaint: LUNG/CHEST PRESSURE Time Seen by Provider: 01/13/24 22:17 History of Present Illness: 53-year-old male patient comes in today for complaints of chest pain and discomfort in his epigastric area. Patient has longstanding type 1 diabetes and chronic kidney disease. Patient appears nontoxic. Patient appears in moderate pain. Patient has prior episodes similar to this type pain. Review of Systems 2 General: Reports: 10 or more systems reviewed and unremarkable except in HPI and below Card: Reports: chest pain PFSH ED 2 PFSH: Medical History Hyperlipemia, mixed Acute renal failure Acute kidney injury superimposed on CKD Acute hyponatremia Hyponatremia Anemia Hypervolemia Tobacco abuse Diabetes Social History Smoking and tobacco/nicotine status: current every day tobacco/nicotine user Physical Exam 2 Const: COMMON NORMALS: alert HENMT: COMMON NORMALS: normocephalic HEAD & SCALP: normocephalic Neck/C-Spine: COMMON NORMALS: full ROM Resp: COMMON NORMALS: normal respiratory effort Cardio: COMMON NORMALS: regular rate RATE: regular rate GI: COMMON NORMALS: non-tender : COMMON NORMALS: Yes no CVA tenderness BLADDER/KIDNEY EXAM: Yes no CVA tenderness Back/Pelvis: COMMON NORMALS: no CVA tenderness Extremity: COMMON NORMALS: no pedal edema Neuro: SENSORIUM/ORIENTATION: Yes alert Skin: COMMON NORMALS: turgor normal GENERAL SKIN EXAM: turgor normal Course 2 Vital Signs: Vital signs: Vital Signs Temperature 97.6 F 01/13/24 22:13 Pulse Rate 67 01/14/24 00:30 Respiratory Rate 11 L 01/14/24 00:30 Blood Pressure 132/69 01/14/24 00:15 Pulse Oximetry 100 01/14/24 00:30 Oxygen Delivery Me thod Room Air 01/13/24 22:13 MDM - Chest Pain Medical Decision Making Patient comes in today with complaints of chest pain. Patient appears in moderate to severe pain. Lungs are clear to auscultation. Abdomen is slightly firm but nontender to palpation. No edema is noted in the extremities. Vital signs normal except for some elevated blood pressure. Patient has a chronic disease history of CKD and type 1 diabetes. Differential diagnosis includes ACS, dehydration, gastroparesis, bowel obstruction. Chest x-ray shows no significant abnormality. KUB noted constipation and large amount of gas with possible ileus. CBC noted stable anemia. CMP noted a creatinine 4.8, glucose 118, troponin 90, BNP 6060. And lipase 134. Most of the results are not significantly different than prior exams. Believe patient's pain is probably secondary to his constipation and mild ileus. Patient will be started on medication to help with pain and medication for his ileus/constipation. Patient had resolution of pain after 50 mcg of fentanyl. Patient was given about 250 mL of IV fluids but was stopped before completion of 1000 due to his history of CHF and chronic kidney disease. Patient will be put on Reglan and milk of magnesia for gastroparesis and constipation. Patient's caregiver reported understanding of plan and need for follow-up or return to the ER for worsening symptoms. Lab Data 01/13/24 22:32 01/13/24 22:32 Radiology Impressions Chest X-Ray 01/13/24 22:18 IMPRESSION: Moderate cardiomegaly. No findings to suggest heart failure. Clear lungs. KUB X-Ray 01/13/24 22:25 IMPRESSION: Colon is distended with gas and formed fecal debris potentially reflecting constipation. Possible dilated small bowel in the mid abdomen could be secondary to colonic distension. Ileus a differential possibility. Laboratory Results WBC 6.57 10^3/uL (3.29-11.43) 01/13/24 22: RBC 2.69 10^6/uL (3.85-5.65) L 01/13/24: Hgb 8.30 g/dL (11.27-16.99) L 01/13/24: Hct 25.3 % (37-53) L 01/13/24 22: MCV 94.1 fl (82-101) 01/13/24 22: MCH 30.9 pg (27-33) 01/13/24 22: MCHC 32.8 g/dL (30-55) 01/13/24 22: RDW 13.3 % (12.1-15.1) 01/13/24: Plt Count 286 10^3/cmm (157-399) 01/13/24 22: MPV 9.9 fL (7.4-10.4) 01/13/24 22:32 Neut % (Auto) 70.2 % 01/13/24 22: Lymph % (Auto) 20.1 % 01/13/24 22:32 [place] % (Auto) 7.8 % 01/13/24: Eos % (Auto) 1.4 % 01/13/24 22: Baso % (Auto) 0.3 % 01/13/24 22: Neut # (Auto) 4.62 10^3/uL (1.8-7.7) 01/13/24: Lymph # (Auto) 1.3 10^3/uL (0.8-4.8) 01/13/24: [place] # (Auto) 0.5 10^3/uL (0.2-0.9) 01/13/24 22: Eos # (Auto) 0.1 10^3/uL (0.0-0.8) 01/13/24: Baso # (Auto) 0.0 10^3/uL (0.0-0.1) 01/13/24 22: Nucleated RBC % (auto) 0 % 01/13/24: Nucleated RBCs # 0.0 /100WBC 01/13/24 22:32 Sodium 133 mmol/L (136-145) L 01/13/24 22:32 Potassium 4.4 mmol/L (3.5-5.1) 01/13/24 22:32 Chloride 97 mmol/L (98-107) L 01/13/24 22:32 Carbon Dioxide 22 mmol/L (22-29) 01/13/24 22:32 Anion Gap 18.4 (5-19) 01/13/24 22:32 BUN 60 mg/dL (6-20) H 01/13/24 22:32 Creatinine 4.8 mg/dL (0.7-1.2) H 01/13/24 22:32 GFR Calculation 15.4 mL/min (90-130) L 01/13/24 22:32 Glucose 118 mg/dL (65-115) H 01/13/24 22:32 Calculated Osmolality 294 mOsm/kg (285-295) 01/13/24 22:32 Calcium 9.0 mg/dL (8.5-10.5) 01/13/24 22:32 Total Bilirubin 0.2 mg/dL (0.15-1.2) 01/13/24 22:32 AST 26 U/L (0-40) 01/13/24 22:32 ALT 15 U/L (0-41) 01/13/24 22:32 Alkaline Phosphatase 94 U/L (40-130) 01/13/24 22:32 Troponin T Baseline 90 ng/L (0-15) H 01/13/24 22:32 Troponin T 120 Minute 84.63 ng/L (0-15) H 01/14/24 00:29 Delta Troponin T -5.37 ABS# (0-10) L 01/14/24 00:29 NT-Pro-B Natriuret Pep 6060 pg/mL (0-125) H 01/13/24 22:32 Total Protein 6.6 g/dL (6.6-8.7) 01/13/24 22:32 Albumin 4.2 g/dL (3.5-5.2) 01/13/24 22:32 Globulin 2.4 g/dL (1.3-4.6) 01/13/24 22: Lipase 134 U/L (13-60) H 01/13/24 22:32 All radiology interpretation(s) finalized by discharge EKG Data EKG 1: EKG interpretation date: 01/13/24 EKG interpretation time: 22:21 Interpretation: EKG shows a sinus rhythm with a regular rate at [address] elevation. No premature contractions noted. Compared to prior exam, 12/07/2023, no significant differences were noted. Computer generated interpretation: Sinus rhythm, left axis deviation, septal myocardial infarct of indeterminate age, abnormal EKG, unconfirmed report. EKG 2: EKG interpretation date: 01/14/24 EKG interpretation time: 00:30 Interpretation: EKG shows a regular rate at [address] elevation is noted. No premature contractions are noted. Compared to prior exam there is no significant changes. Large amount of artifact is present on this EKG. Computer generated interpretation: Sinus rhythm first-degree AV block, left axis deviation, moderate intraventricular conduction delay, nonspecific T wave abnormality, abnormal EKG, unconfirmed report. Discharge Plan Discharge Patient Disposition: Home Clinical Impression: Diabetic gastroparesis Constipation Qualifiers: Constipation type: unspecified constipation type Qualified Code(s): K59.00 - Constipation, unspecified Condition: Stable Prescriptions: New metoclopramide HCl 10 mg tablet 10 mg PO Q6H 7 Days Qty: 28 0RF [place] Milk of Magnesia 400 mg/5 mL suspension 20 ml PO BID PRN (Reason: constipation) Qty: 355 0RF No Action isosorbide mononitrate 60 mg tablet extended release 24 hr 60 mg PO DAILY@09 (DME) OneTouch Ultra Test Strip See Rx Instructions .ROUTE .MEDSUPPLY Qty: 10 Rx Instructions: As directed (DME) pen needle, diabetic [TechLITE Pen Needle] 31 gauge x 5/16 needle See Rx Instructions .ROUTE .MEDSUPPLY Qty: 1200 Rx Instructions: As directed (DME) lancets [TRUEplus Lancets] 33 gauge misc See Rx Instructions .ROUTE .MEDSUPPLY Qty: 100 Rx Instructions: As directed carvedilol 25 mg Tablet 25 mg PO BID@, Rx Instructions: must administer with a meal/food. Hold if systolic BP is below 90 or diastolic BP below 60. atorvastatin 10 mg Tablet 10 mg PO BEDTIME@21 carbamazepine 200 mg Tablet 200 mg PO TID@,, aspirin 325 mg tablet,delayed release (DR/EC) 650 mg PO Q4H PRN (Reason: Pain) amlodipine 10 mg Tablet 10 mg PO DAILY@09 ferrous sulfate 325 mg (65 mg iron) Tablet 325 mg PO DAILY@09 benztropine 1 mg Tablet 1 mg PO BID@, fenofibrate 160 mg Tablet 160 mg PO DAILY@09 acetaminophen [Tylenol] 325 mg Capsule 650 mg PO Q4H PRN (Reason: Pain) multivitamin with folic acid [Daily-Sean (with folic acid)] 400 mcg tablet 1 tab PO DAILY@09 gabapentin 300 mg capsule 300 mg PO DAILY@09 hydralazine 10 mg tablet 10 mg PO QID Rx Instructions: @09:00,14:00,1800,21:00 trazodone 100 mg tablet 100 mg PO BEDTIME@21 aripiprazole 15 mg tablet 15 mg PO DAILY@09 Novolog FlexPen U-100 Insulin 100 unit/mL (3 mL) insulin pen See Rx Instructions .ROUTE .COMPLEX Rx Instructions: sliding scale subcutaneously tid Eucerin Cream 1 applic TOPICAL DAILY PRN (Reason: unknown) Latuda 120 mg tablet 60 mg PO BID@ magnesium oxide 400 mg magnesium tablet 400 mg PO TID@,, Discharge Orders: Discharge ED (Routine); Ordered 01/14/24 Ordered By: Thony Cr Referrals: Ahsan Gilliam MD [Primary Care Provider] - Discharge Diet: Usual diet Discharge Activity: Increase activity as tolerated Patient Instructions: Constipation (ED) Activity Restrictions/Additional Instructions: Give milk of magnesia twice a day for the next 2 to 3 days until constipation resolves. Use Reglan 10 mg 4 times a day as needed for abdominal pain. Follow- up with primary care in 3 to 5 days for recheck. Return to ED for worsening symptoms such as high fever, blood in vomit or stool, or new concerns. Coding Level of Care Code ED Hydrostatic Tester for Maria R Garrison
--- NOTE | 2024-01-13 22:18 | ECG_ITS ---
[facility] Test Date: 2024-01-13 Pat Name: Tyrese Leach Department: Room: Gender: Male Results Technician: : 1970 Requested By: Thony Baires Order Number: [id number] Debora MD: Yovanny Pinon M.D. Measurements Intervals [place] Rate: 75 P: 62 [place]: 204 QRS: -39 QRSD: 117 T: 9 QT: 405 QTc: 454 Interpretive Statements SINUS RHYTHM LEFT AXIS DEVIATION [QRS AXIS < -30] SEPTAL MYOCARDIAL INFARCTION , OF INDETERMINATE AGE [40+ ms Q WAVE IN V1/V2] Compared to ECG 12/07/2023 13:00:51 No significant changes Electronically Signed On 01-14-2024 19:21:45 CDT by Yovanny Pinon M.D. [email or web address] EnterpriseChildren[email or web address]/store/[id number] f
--- NOTE | 2024-01-13 22:25 | XRR_ITS ---
PROCEDURE INFORMATION: Exam: XR Abdomen Exam date and time: 01/13/2024 10:41 PM Age: 53 years old Clinical indication: Patient HX: C/O constipation with tarry stool TECHNIQUE: Imaging protocol: Radiologic exam of the abdomen. Views: Frontal supine view of the abdomen. 1 View. COMPARISON: CR (CHEST, ) 01/13/2024 10:23 PM FINDINGS: Gastrointestinal tract: Colon is diffusely dilated with gas and formed fecal debris. There may be dilated loops of small bowel in the central abdomen. No abnormal calcifications are perceived but penetration is suboptimal. Bones/joints: Unremarkable. XR/XR KUB [id number] IMPRESSION: Colon is distended with gas and formed fecal debris potentially reflecting constipation. Possible dilated small bowel in the mid abdomen could be secondary to colonic distension. Ileus a differential possibility.
[2024-01-13 23:02] LABS: Basophils % 0.3 %; Eosinophils # 0.1 10^3/uL (0.0-0.8); Eosinophils % 1.4 %; Hematocrit 25.3 % (37-53); Lymphocytes # 1.3 10^3/uL (0.8-4.8); Lymphocytes % 20.1 %; Mean Corpuscular HGB Conc 32.8 g/dL (30-55); Mean Corpuscular Hemoglobin 30.9 pg (27-33); Mean Corpuscular Volume 94.1 fl (82-101); Mean Platelet Volume 9.9 fL (7.4-10.4); Monocytes # 0.5 10^3/uL (0.2-0.9); Monocytes % 7.8 %; Neutrophils # 4.62 10^3/uL (1.8-7.7); Neutrophils % 70.2 %; Nucleated Red Blood Cells % 0 %; Platelet Count 286 10^3/cmm (157-399); Red Blood Count 2.69 10^6/uL (3.85-5.65); Red Cell Distribution Width 13.3 % (12.1-15.1); White Blood Count 6.57 10^3/uL (3.29-11.43)
[2024-01-13 23:03] LABS: Troponin(5th) Baseline 90 ng/L (0-15)
[2024-01-13 23:11] LABS: Alanine Aminotransferase 15 U/L (0-41); Albumin Level 4.2 g/dL (3.5-5.2); Alkaline Phosphatase 94 U/L (40-130); Anion Gap 18.4 (5-19); Aspartate Amino Transferase 26 U/L (0-40); Blood Urea Nitrogen 60 mg/dL (6-20); Carbon Dioxide 22 mmol/L (22-29); Chloride 97 mmol/L (98-107); Creatinine Clr Calc Pharmacy 17.6895; Globulin 2.4 g/dL (1.3-4.6); Glomerular Filtration Rate 15.4 mL/min (90-130); Glucose 118 mg/dL (65-115); Lipase 134 U/L (13-60); NT Pro B Type Natriuretic Pept 6060 pg/mL (0-125); Osmolality Calculated 294 mOsm/kg (285-295); Potassium 4.4 mmol/L (3.5-5.1); Sodium 133 mmol/L (136-145); Total Bilirubin 0.2 mg/dL (0.15-1.2); Total Protein 6.6 g/dL (6.6-8.7)
[2024-01-13] MEDS: sodium chloride 0.9% 1,000 ML 999 ML IV (23:15)
[2024-01-13] MEDS: fentaNYL 50 mcg/mL INJ 2mL IVP (23:16)
[2024-01-14] VITALS: BP 154/80; PULSE 68; RESP 13; O2SAT 98
[2024-01-14 00:15] VITALS: BP 132/69; PULSE 67; RESP 13; O2SAT 98
--- NOTE | 2024-01-14 00:18 | ECG_ITS ---
[facility] Test Date: 2024-01-14 Pat Name: Tyrese Leach Department: Room: Gender: Male Allocations Clerk: : 1970 Requested By: Thony Baires Order Number: [id number] Debora MD: Yovanny Pinon M.D. Measurements Intervals [place] Rate: 67 P: 76 ND: 222 QRS: -41 QRSD: 126 T: -41 QT: 420 QTc: 445 Interpretive Statements SINUS RHYTHM WITH FIRST DEGREE AV BLOCK LEFT AXIS DEVIATION [QRS AXIS < -30] MODERATE INTRAVENTRICULAR CONDUCTION DELAY [105+ ms QRS DURATION, 80+ ms Q/S IN V1/V2, NO Q AND 60+ ms R IN I/aVL/V5/V6] NONSPECIFIC T-WAVE ABNORMALITY Compared to ECG 01/13/2024 22:18:56 First degree AV block now present Intraventricular conduction delay now present T-wave abnormality now present Myocardial infarct finding no longer present Electronically Signed On 01-14-2024 19:34:41 CDT by Yovanny Pinon M.D. [id number]
[2024-01-14 00:30] VITALS: PULSE 67; RESP 11; O2SAT 100
[2024-01-14 00:45] VITALS: BP 164/75; PULSE 65; RESP 12; O2SAT 99
[2024-01-14 00:51] LABS: Troponin 5 2HR 84.63 ng/L (0-15)
[2024-01-14 00:55] LABS: Troponin 5 2HR Delta -5.37 ABS# (0-10)
[2024-01-14 01:00] VITALS: BP 164/75; PULSE 64; RESP 12; O2SAT 99
[2024-01-14] MEDS: metoclopramide 10 mg Tablet PO (01:03)
[2024-01-14] MEDS: magnesium hydroxide 30 mL UDC PO (01:06)
[2024-01-14 01:15] VITALS: BP 175/77
== END 2024-01-14 01:10 | disposition home or self-care (01) ==
PROVIDERS: Emergency Provider Nurse Practitioner Family; PCP Family Medicine
DX: E11.43 Type 2 diabetes mellitus with diabetic autonomic (poly)neuropathy (principal); K31.84 Gastroparesis; K59.00 Constipation, unspecified; Z79.4 Long term (current) use of insulin; E78.2 Mixed hyperlipidemia; E11.22 Type 2 diabetes mellitus with diabetic chronic kidney disease; N18.9 Chronic kidney disease, unspecified; Z72.0 Tobacco use
CPT/HCPCS: 71045; 74018; 80053; 83690; 83880; 84484; 85025; 93005; 96361; 96374; 99285; J3010; J7030; J8597

== ENCOUNTER → 2024-01-24 09:42 | Outpatient (BNVA) | payer MEDICAID, SELFPAY | PROVIDERS: PCP Family Medicine; Visit Provider Surgery | DX: N18.6 End stage renal disease (principal) | CPT/HCPCS: 99204 ==

== ENCOUNTER 2024-01-25 16:27 | Emergency (ER) | payer MEDICAID, SELFPAY ==
[2024-01-25 16:31] VITALS: BP 148/68; PULSE 68; RESP 17; TEMP 36.6; O2SAT 100
--- NOTE | 2024-01-25 16:34 | ECG_ITS ---
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 Measurements Intervals [place] Rate: 65 P: 64 PA: 222 QRS: -33 QRSD: 128 T: 7 QT: 423 QTc: 440 Interpretive Statements SINUS RHYTHM WITH FIRST DEGREE AV BLOCK LEFT AXIS DEVIATION [QRS AXIS < -30] SEPTAL MYOCARDIAL INFARCTION , OF INDETERMINATE AGE [40+ ms Q WAVE IN V1/V2] Compared to ECG 01/14/2024 00:27:37 Myocardial infarct finding now present Intraventricular conduction delay no longer present T-wave abnormality no longer present Electronically Signed On 01-26-2024 19:27:04 CDT by Yovanny Pinon M.D. [email or web address].[employer]ent/store/[id number]
--- NOTE | 2024-01-25 16:34 | XRR_ITS ---
PROCEDURE INFORMATION: Exam: XR Chest Exam date and time: 01/25/2024 5:42 PM Age: 53 years old Clinical indication: Chest wall pain; Additional info: Chest pain TECHNIQUE: Imaging protocol: Radiologic exam of the chest. Views: 1 view. COMPARISON: CR (CHEST, ) 01/13/2024 10:23 PM FINDINGS: Lungs: No focal consolidation. Mild interstitial and hazy opacities, possibly reflecting pulmonary vascular congestion or a viral pneumonia in the proper clinical setting. Pleural spaces: No evidence of pneumothorax. No evidence of pleural effusion. Heart/Mediastinum: Mild cardiomegaly. Bones/joints: No evidence of acute osseous abnormality. XR/XR chest 1V portable [id number] IMPRESSION: 1. Mild interstitial and hazy opacities, possibly reflecting pulmonary vascular congestion or a viral pneumonia in the proper clinical setting.
--- NOTE | 2024-01-25 16:34 | W.ED.CHESTPA ---
Documented by User: JORY Flores 01/28/24 09:01 HPI - Chest Pain General: Chief Complaint: Shortness of Breath/Dyspnea Stated Complaint: chest pain Time Seen by Provider: 01/25/24 16:33 Source: patient, EMS and other (care staff) Mode of arrival: EMS Limitations: other (intellectual disability) History of Present Illness: Patient is a 53-year-old male with a history of diabetes, ESRD being evaluated for dialysis, HTN, intellectual disability and dyslipidemia here via EMS with a complaint of chest pain. Care staff that accompanies patient states patient began complaining of chest pain just prior to the ambulance being called. He has been seen here in the emergency department for complaints of chest pain. At time of my examination patient tells me he is no longer having discomfort. Patient underwent stress testing and echocardiogram 4 months ago. EF was normal at 65%. Scan showed a small sized area of ischemia in the left circumflex artery territory with attenuation artifact not ruled out. He followed up with cardiology following this who felt it was most likely artifact. Patient does not complain of shortness of breath. History is difficult to ascertain given his profound intellectual disability. He is mainly non-verbal per staff. Does not ambulate. MD complaint: chest pain Onset (ago): hour(s) Timing of current episode: now resolved Prior episodes: Yes Onset: during rest Pain location: left chest Pain radiation: none Associated symptoms: Deny abdominal pain, dyspnea, fever(s) or syncope Treatment prior to arrival: aspirin (given by EMS) Risk Factors: Coronary artery disease risk factors: diabetes, hyperlipidemia and hypertension Thoracic aortic dissection risk factors: none Review of Systems General: Reports: Other (felt to be unreliable given his baseline mental status) Const: Denies: fever(s) Card: Reports: chest pain; Denies: edema, swelling of feet/ankles, lightheadedness, syncope or pre-syncope Resp: Denies: dyspnea, productive cough, non-productive cough or chest congestion GI: Denies: abdominal pain PFSH ED PFSH: Medical History Hyperlipemia, mixed Acute renal failure Acute kidney injury superimposed on CKD Acute hyponatremia Hyponatremia Anemia Hypervolemia Tobacco abuse Diabetes Social History Smoking and tobacco/nicotine status: current every day tobacco/nicotine user Physical Exam Const: COMMON NORMALS: alert and well nourished EXAM LIMITATIONS: other limitations (severe intellectual disability) GENERAL APPEARANCE: cooperative HENMT: COMMON NORMALS: normocephalic and atraumatic HEAD & SCALP: normal to inspection, normocephalic and atraumatic Neck/C-Spine: COMMON NORMALS: no JVD and No carotid bruits Chest: COMMONS NORMALS: normal inspection of the chest and normal palpation of entire chest wall Resp: COMMON NORMALS: normal respiratory effort and clear to auscultation bilaterally AUSCULTATION: clear to auscultation bilaterally Cardio: COMMON NORMALS: no JVD, regular rate and regular rhythm RATE: regular rate RHYTHM: regular rhythm GI: COMMON NORMALS: Normal to inspection, nondistended, normoactive bowel sounds present, Soft to palpation and non-tender PALPATION: Yes Soft to palpation : COMMON NORMALS: Yes no CVA tenderness BLADDER/KIDNEY EXAM: Yes no CVA tenderness Back/Pelvis: COMMON NORMALS: no CVA tenderness and thoracic and lumbar spine normal to inspection Extremity: COMMON NORMALS: no clubbing, cyanosis or edema, no calf tenderness and no pedal edema GENERAL: Yes normal exam except as noted Neuro: SENSORIUM/ORIENTATION: Yes alert Course Vital Signs: Vital signs: Vital Signs Temperature 97.9 F 01/25/24 16:31 Pulse Rate 61 01/25/24 19:34 Respiratory Rate 18 01/25/24 19:34 Blood Pressure 149/71 01/25/24 19:34 Pulse Oximetry 97 01/25/24 19:34 Oxygen Delivery Me thod Room Air 01/25/24 18:00 MDM - Chest Pain Lab Data 01/25/24 16:25 01/25/24 18:15 Radiology Impressions Chest X-Ray 01/25/24 16:34 IMPRESSION: 1. Mild interstitial and hazy opacities, possibly reflecting pulmonary vascular congestion or a viral pneumonia in the proper clinical setting. Laboratory Results WBC 5.20 10^3/uL (3.29-11.43) 01/25/24 16:25 RBC 2.42 10^6/uL (3.85-5.65) L 01/25/24 16:25 Hgb 7.40 g/dL (11.27-16.99) L 01/25/24 16:25 Hct 23.0 % (37-53) L 01/25/24 16:25 MCV 95.0 fl (82-101) 01/25/24 16:25 MCH 30.6 pg (27-33) 01/25/24 16:25 MCHC 32.2 g/dL (30-55) 01/25/24 16:25 RDW 12.9 % (12.1-15.1) 01/25/24 16:25 Plt Count 293 10^3/cmm (157-399) 01/25/24 16:25 MPV 10.0 fL (7.4-10.4) 01/25/24 16:25 Neut % (Auto) 60.6 % 01/25/24 16:25 Lymph % (Auto) 25.2 % 01/25/24 16:25 Barron % (Auto) 11.3 % 01/25/24 16:25 Eos % (Auto) 1.7 % 01/25/24 16:25 Baso % (Auto) 0.6 % 01/25/24 16:25 Neut # (Auto) 3.15 10^3/uL (1.8-7.7) 01/25/24 16:25 Lymph # (Auto) 1.3 10^3/uL (0.8-4.8) 01/25/24 16:25 Barron # (Auto) 0.6 10^3/uL (0.2-0.9) 01/25/24 16:25 Eos # (Auto) 0.1 10^3/uL (0.0-0.8) 01/25/24 16:25 Baso # (Auto) 0.0 10^3/uL (0.0-0.1) 01/25/24 16: Nucleated RBC % (auto) 0 % 01/25/24 16: Nucleated RBCs # 0.0 /100WBC 01/25/24 16:25 Sodium 127 mmol/L (136-145) L 01/25/24 18:15 Potassium 4.4 mmol/L (3.5-5.1) 01/25/24 18:15 Chloride 94 mmol/L (98-107) L 01/25/24 18:15 Carbon Dioxide 25 mmol/L (22-29) 01/25/24 18:15 Anion Gap 12.4 (5-19) 01/25/24 18:15 BUN 53 mg/dL (6-20) H 01/25/24 18:15 Creatinine 4.7 mg/dL (0.7-1.2) H 01/25/24 18:15 GFR Calculation 15.8 mL/min (90-130) L 01/25/24 18:15 Glucose 140 mg/dL (65-115) H 01/25/24 18:15 Calculated Osmolality 281 mOsm/kg (285-295) L 01/25/24 18:15 Calcium 8.2 mg/dL (8.5-10.5) L 01/25/24 18:15 Total Bilirubin 0.2 mg/dL (0.15-1.2) 01/25/24 18:15 AST 23 U/L (0-40) 01/25/24 18:15 ALT 17 U/L (0-41) 01/25/24 18:15 Alkaline Phosphatase 81 U/L (40-130) 01/25/24 18:15 Troponin T Baseline 75 ng/L (0-15) H 01/25/24 18:15 Total Protein 5.9 g/dL (6.6-8.7) L 01/25/24 18:15 Albumin 3.5 g/dL (3.5-5.2) 01/25/24 18:15 Globulin 2.4 g/dL (1.3-4.6) 01/25/24 18:15 Discharge Plan Discharge Patient Disposition: Home Clinical Impression: ESRD (end stage renal disease) Chest pain Qualifiers: Chest pain type: unspecified Qualified Code(s): R07.9 - Chest pain, unspecified Condition: Stable Prescriptions: No Action isosorbide mononitrate 60 mg tablet extended release 24 hr 60 mg PO DAILY@09 (DME) OneTouch Ultra Test Strip See Rx Instructions .ROUTE .MEDSUPPLY Qty: 10 Rx Instructions: As directed (DME) pen needle, diabetic [TechLITE Pen Needle] 31 gauge x 5/16 needle See Rx Instructions .ROUTE .MEDSUPPLY Qty: 1200 Rx Instructions: As directed (DME) lancets [TRUEplus Lancets] 33 gauge misc See Rx Instructions .ROUTE .MEDSUPPLY Qty: 100 Rx Instructions: As directed carvedilol 25 mg Tablet 25 mg PO BID@, Rx Instructions: must administer with a meal/food. Hold if systolic BP is below 90 or diastolic BP below 60. atorvastatin 10 mg Tablet 10 mg PO BEDTIME@21 carbamazepine 200 mg Tablet 200 mg PO TID@,,21 aspirin 325 mg tablet,delayed release (DR/EC) 650 mg PO Q4H PRN (Reason: Pain) amlodipine 10 mg Tablet 10 mg PO DAILY@09 ferrous sulfate 325 mg (65 mg iron) Tablet 325 mg PO DAILY@09 benztropine 1 mg Tablet 1 mg PO BID@,21 fenofibrate 160 mg Tablet 160 mg PO DAILY@09 acetaminophen [Tylenol] 325 mg Capsule 650 mg PO Q4H PRN (Reason: Pain) multivitamin with folic acid [Daily-Sean (with folic acid)] 400 mcg tablet 1 tab PO DAILY@09 gabapentin 300 mg capsule 300 mg PO DAILY@09 hydralazine 10 mg tablet 10 mg PO QID Rx Instructions: @09:00,14:00,1800,21:00 trazodone 100 mg tablet 100 mg PO BEDTIME@21 aripiprazole 15 mg tablet 15 mg PO DAILY@09 Novolog FlexPen U-100 Insulin 100 unit/mL (3 mL) insulin pen See Rx Instructions .ROUTE .COMPLEX Rx Instructions: sliding scale subcutaneously tid Eucerin Cream 1 applic TOPICAL DAILY PRN (Reason: unknown) Latuda 120 mg tablet 60 mg PO BID@,21 magnesium oxide 400 mg magnesium tablet 400 mg PO TID@,, Galo Milk of Magnesia 400 mg/5 mL suspension 20 ml PO BID PRN (Reason: constipation) Qty: 355 0RF Discharge Orders: Discharge ED (Routine); Ordered 01/25/24 Ordered By: Connor Mayfield Referrals: Ahsan Gilliam MD [Primary Care Provider] - Discharge Diet: Usual diet Discharge Activity: Resume usual activity Patient Instructions: End Stage Kidney Disease (ED) Activity Restrictions/Additional Instructions: Continue appointment for port placement as planned. Begin dialysis as planned. Return with any new or concerning symptoms. Sign Out Sign Out Data: Patient Sign Out occurred on 01/25/24 at 17:09. Patient's care was discussed, and care was transferred from JORY Flores to JORY Rivas. Coding Level of Care Code ED Bottom Precipitator Operator for Chg Fwd Documented by User: JORY Rivas 01/25/24 23:59 HPI - Chest Pain General: Chief Complaint: Shortness of Breath/Dyspnea Stated Complaint: chest pain Time Seen by Provider: 01/25/24 16:33 PFSH ED PFSH: Medical History Hyperlipemia, mixed Acute renal failure Acute kidney injury superimposed on CKD Acute hyponatremia Hyponatremia Anemia Hypervolemia Tobacco abuse Diabetes Social History Smoking and tobacco/nicotine status: current every day tobacco/nicotine user Course Vital Signs: Vital signs: Vital Signs Temperature 97.9 F 01/25/24 16:31 Pulse Rate 61 01/25/24 19:34 Respiratory Rate 18 01/25/24 19:34 Blood Pressure 149/71 01/25/24 19:34 Pulse Oximetry 97 01/25/24 19:34 Oxygen Delivery Me thod Room Air 01/25/24 18:00 MDM - Chest Pain Medical Decision Making This patient was handed over to me at shift change by JORY Flores. This patient had reported some chest pain prompting evaluation in the emergency department. He has similarly been seen in the emergency department for chest pain, most recently in November. Approximately 4 months ago he had echocardiogram as well his other cardiac workup, where coronary artery disease was essentially ruled out. On arrival to the ED today he was no longer complaining of chest pain or symptoms, and upon my evaluation is sleeping comfortably. Video Library Assistant in the room explained to me that he is due for port placement on with subsequent dialysis scheduled after that. Patient's labs show multiple abnormalities including anemia, hyponatremia, and elevated troponin. However, these labs all appear baseline since last year. His troponin is baseline and EKG also demonstrates no changes from baseline. A proper review of systems and examination was difficult to obtain due to patient's profound mental disability, so it is difficult to ascertain the significance of his chest pain. However, due to his no longer reporting symptoms to staff, and baseline workup, I informed cemetery workers supervisor to keep plan for port placement next week as well as subsequent dialysis as patient's labs all appear to be consistent with a clinical picture of end-stage renal disease. This plan is thoroughly discussed with cemetery workers supervisor who agrees, and I also spoke with caretaking video manager who agrees to take the patient back to the facility with continued follow-up as planned. Medical Records I reviewed the patient's medical records. Lab Data I reviewed the patient's lab results. 01/25/24 16:25 01/25/24 18:15 Radiology Impressions Chest X-Ray 01/25/24 16:34 IMPRESSION: 1. Mild interstitial and hazy opacities, possibly reflecting pulmonary vascular congestion or a viral pneumonia in the proper clinical setting. Laboratory Results WBC 5.20 10^3/uL (3.29-11.43) 01/25/24 16: RBC 2.42 10^6/uL (3.85-5.65) L 01/25/24 16:25 Hgb 7.40 g/dL (11.27-16.99) L 01/25/24 16:25 Hct 23.0 % (37-53) L 01/25/24 16: MCV 95.0 fl (82-101) 01/25/24 16:25 MCH 30.6 pg (27-33) 01/25/24 16: MCHC 32.2 g/dL (30-55) 01/25/24 16:25 RDW 12.9 % (12.1-15.1) 01/25/24 16:25 Plt Count 293 10^3/cmm (157-399) 01/25/24 16:25 MPV 10.0 fL (7.4-10.4) 01/25/24 16:25 Neut % (Auto) 60.6 % 01/25/24 16:25 Lymph % (Auto) 25.2 % 01/25/24 16:25 Barron % (Auto) 11.3 % 01/25/24 16:25 Eos % (Auto) 1.7 % 01/25/24 16:25 Baso % (Auto) 0.6 % 01/25/24 16:25 Neut # (Auto) 3.15 10^3/uL (1.8-7.7) 01/25/24 16:25 Lymph # (Auto) 1.3 10^3/uL (0.8-4.8) 01/25/24 16:25 Barron # (Auto) 0.6 10^3/uL (0.2-0.9) 01/25/24 16:25 Eos # (Auto) 0.1 10^3/uL (0.0-0.8) 01/25/24 16:25 Baso # (Auto) 0.0 10^3/uL (0.0-0.1) 01/25/24 16:25 Nucleated RBC % (auto) 0 % 01/25/24 16:25 Nucleated RBCs # 0.0 /100WBC 01/25/24 16:25 Sodium 127 mmol/L (136-145) L 01/25/24 18:15 Potassium 4.4 mmol/L (3.5-5.1) 01/25/24 18:15 Chloride 94 mmol/L (98-107) L 01/25/24 18:15 Carbon Dioxide 25 mmol/L (22-29) 01/25/24 18:15 Anion Gap 12.4 (5-19) 01/25/24 18:15 BUN 53 mg/dL (6-20) H 01/25/24 18:15 Creatinine 4.7 mg/dL (0.7-1.2) H 01/25/24 18:15 GFR Calculation 15.8 mL/min (90-130) L 01/25/24 18:15 Glucose 140 mg/dL (65-115) H 01/25/24 18:15 Calculated Osmolality 281 mOsm/kg (285-295) L 01/25/24 18:15 Calcium 8.2 mg/dL (8.5-10.5) L 01/25/24 18:15 Total Bilirubin 0.2 mg/dL (0.15-1.2) 01/25/24 18:15 AST 23 U/L (0-40) 01/25/24 18:15 ALT 17 U/L (0-41) 01/25/24 18:15 Alkaline Phosphatase 81 U/L (40-130) 01/25/24 18:15 Troponin T Baseline 75 ng/L (0-15) H 01/25/24 18:15 Total Protein 5.9 g/dL (6.6-8.7) L 01/25/24 18:15 Albumin 3.5 g/dL (3.5-5.2) 01/25/24 18:15 Globulin 2.4 g/dL (1.3-4.6) 01/25/24 18:15 All radiology interpretation(s) finalized by discharge Discharge Plan Discharge Patient Disposition: Home Clinical Impression: ESRD (end stage renal disease) Chest pain Qualifiers: Chest pain type: unspecified Qualified Code(s): R07.9 - Chest pain, unspecified Condition: Stable Prescriptions: No Action isosorbide mononitrate 60 mg tablet extended release 24 hr 60 mg PO DAILY@09 (DME) OneTouch Ultra Test Strip See Rx Instructions .ROUTE .MEDSUPPLY Qty: 10 Rx Instructions: As directed (DME) pen needle, diabetic [TechLITE Pen Needle] 31 gauge x 5/16 needle See Rx Instructions .ROUTE .MEDSUPPLY Qty: 1200 Rx Instructions: As directed (DME) lancets [TRUEplus Lancets] 33 gauge misc See Rx Instructions .ROUTE .MEDSUPPLY Qty: 100 Rx Instructions: As directed carvedilol 25 mg Tablet 25 mg PO BID@, Rx Instructions: must administer with a meal/food. Hold if systolic BP is below 90 or diastolic BP below 60. atorvastatin 10 mg Tablet 10 mg PO BEDTIME@21 carbamazepine 200 mg Tablet 200 mg PO TID@,, aspirin 325 mg tablet,delayed release (DR/EC) 650 mg PO Q4H PRN (Reason: Pain) amlodipine 10 mg Tablet 10 mg PO DAILY@09 ferrous sulfate 325 mg (65 mg iron) Tablet 325 mg PO DAILY@09 benztropine 1 mg Tablet 1 mg PO BID@, fenofibrate 160 mg Tablet 160 mg PO DAILY@09 acetaminophen [Tylenol] 325 mg Capsule 650 mg PO Q4H PRN (Reason: Pain) multivitamin with folic acid [Daily-Sean (with folic acid)] 400 mcg tablet 1 tab PO DAILY@09 gabapentin 300 mg capsule 300 mg PO DAILY@09 hydralazine 10 mg tablet 10 mg PO QID Rx Instructions: @09:00,14:00,1800,21:00 trazodone 100 mg tablet 100 mg PO BEDTIME@21 aripiprazole 15 mg tablet 15 mg PO DAILY@09 Novolog FlexPen U-100 Insulin 100 unit/mL (3 mL) insulin pen See Rx Instructions .ROUTE .COMPLEX Rx Instructions: sliding scale subcutaneously tid Eucerin Cream 1 applic TOPICAL DAILY PRN (Reason: unknown) Latuda 120 mg tablet 60 mg PO BID@09,21 magnesium oxide 400 mg magnesium tablet 400 mg PO TID@09,14,21 Galo Milk of Magnesia 400 mg/5 mL suspension 20 ml PO BID PRN (Reason: constipation) Qty: 355 0RF Discharge Orders: Discharge ED (Routine); Ordered 01/25/24 Ordered By: Connor Mayfield Referrals: Ahsan Gilliam MD [Primary Care Provider] - Discharge Diet: Usual diet Discharge Activity: Resume usual activity Patient Instructions: End Stage Kidney Disease (ED) Activity Restrictions/Additional Instructions: Continue appointment for port placement as planned. Begin dialysis as planned. Return with any new or concerning symptoms. Sign Out Sign Out Data: Patient Sign Out occurred on 01/25/24 at 17:09. Patient's care was discussed, and care was transferred from JORY Flores to JORY Rivas. Coding Level of Care Code ED Bottom Precipitator Operator for Maria R Garrison
[2024-01-25 17:02] LABS: Basophils % 0.6 %; Eosinophils # 0.1 10^3/uL (0.0-0.8); Eosinophils % 1.7 %; Lymphocytes # 1.3 10^3/uL (0.8-4.8); Lymphocytes % 25.2 %; Mean Corpuscular HGB Conc 32.2 g/dL (30-55); Mean Corpuscular Hemoglobin 30.6 pg (27-33); Monocytes # 0.6 10^3/uL (0.2-0.9); Monocytes % 11.3 %; Neutrophils # 3.15 10^3/uL (1.8-7.7); Neutrophils % 60.6 %; Nucleated Red Blood Cells % 0 %; Platelet Count 293 10^3/cmm (157-399); Red Blood Count 2.42 10^6/uL (3.85-5.65); Red Cell Distribution Width 12.9 % (12.1-15.1)
[2024-01-25 18:00] VITALS: BP 148/74; PULSE 91; O2SAT 97
--- NOTE | 2024-01-25 18:45 | ECG_ITS ---
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 Measurements Intervals Nicholls Rate: 67 P: 64 MI: 202 QRS: -34 QRSD: 122 T: -17 QT: 426 QTc: 450 Interpretive Statements SINUS RHYTHM LEFT AXIS DEVIATION [QRS AXIS < -30] MODERATE INTRAVENTRICULAR CONDUCTION DELAY [110+ ms QRS DURATION] Compared to ECG 01/25/2024 16:45:16 Intraventricular conduction delay now present First degree AV block no longer present Myocardial infarct finding no longer present Electronically Signed On 01-26-2024 19:57:46 CDT by Yovanny Pinon M.D. [id number]
[2024-01-25 19:00] LABS: Troponin(5th) Baseline 75 ng/L (0-15)
[2024-01-25 19:02] LABS: Alanine Aminotransferase 17 U/L (0-41); Albumin Level 3.5 g/dL (3.5-5.2); Alkaline Phosphatase 81 U/L (40-130); Anion Gap 12.4 (5-19); Aspartate Amino Transferase 23 U/L (0-40); Blood Urea Nitrogen 53 mg/dL (6-20); Calcium 8.2 mg/dL (8.5-10.5); Carbon Dioxide 25 mmol/L (22-29); Chloride 94 mmol/L (98-107); Globulin 2.4 g/dL (1.3-4.6); Glomerular Filtration Rate 15.8 mL/min (90-130); Glucose 140 mg/dL (65-115); Osmolality Calculated 281 mOsm/kg (285-295); Potassium 4.4 mmol/L (3.5-5.1); Sodium 127 mmol/L (136-145); Total Bilirubin 0.2 mg/dL (0.15-1.2); Total Protein 5.9 g/dL (6.6-8.7)
[2024-01-25] MEDS: sodium chloride 0.9% 1,000 ML 999 ML IV (19:27)
[2024-01-25 19:34] VITALS: BP 149/71; PULSE 61; RESP 18; O2SAT 97
== END 2024-01-25 20:43 | disposition home or self-care (01) ==
PROVIDERS: Physician Assistant; Emergency Provider Physician Assistant; PCP Family Medicine
DX: R07.9 Chest pain, unspecified (principal); E11.22 Type 2 diabetes mellitus with diabetic chronic kidney disease; I12.0 Hypertensive chronic kidney disease with stage 5 chronic kidney disease or end stage renal disease; N18.6 End stage renal disease; E78.2 Mixed hyperlipidemia; Z72.0 Tobacco use; Z79.4 Long term (current) use of insulin
CPT/HCPCS: 71045; 80053; 84484; 85025; 93005; 96360; 99285; J7030

== ENCOUNTER 2024-01-30 16:03 | Outpatient (CLI) | payer MEDICAID, SELFPAY ==
--- NOTE | 2024-01-30 16:07 | MR_ITS ---
WS: [id number] MRI LUMBAR SPINE NONCONTRAST TECHNIQUE: Sagittal T1, T2 and STIR imaging. Axial T1 and T2 imaging. CLINICAL INFORMATION: L-spine compression fracture COMPARISON: None. FINDINGS: Some images degraded by patient motion Mild lumbar curve. Acute compression superior endplate L3 with anterior wedging. Fracture cleft visua lized in the superior endplate. Loss of approximately 40% vertebral body height anteriorly. Minimal r etropulsion of the posterior super cortex. Central disc protrusion at L2-3 results in moderate centra l canal stenosis. Mild compression inferior endplate L2 with slight edema. Incidental Schmorl's node T12 inferior endplate. L1-L2: Normal. L2-L3: Prominent central disc protrusion with moderate central canal stenosis. Bilateral foraminal pr otrusions with mild bilateral foraminal narrowing. Moderate facet arthropathy. L3-L4: Mild annular bulging. Spinal canal is patent. Mild bilateral foraminal narrowing. Mild facet a rthropathy. L4-L5: Mild annular bulging with slight effacement of the ventral thecal sac. Small annular fissure. Mild facet arthropathy. Small LEFT greater than RIGHT foraminal protrusions with mild LEFT greater th an RIGHT foraminal narrowing. L5-S1: Shallow central disc protrusion with slight impingement on the traversing RIGHT greater than L EFT S1 nerve roots. Mild central canal stenosis. Mild RIGHT foraminal narrowing. Mild facet arthropat hy. Visualized pelvic bony structures: Normal. Paravertebral soft tissues: Normal. RIGHT renal cysts. MR/MR lumbar spine wo con* [id number] IMPRESSION: 1. Mild lumbar curve. 2. Mild acute compression superior endplate L3 with loss of approximately 40% vertebral body height. Visualized fracture cleft. Minimal retropulsion of the p osterior superior cortex. 3. Central disc protrusion L2-3 with moderate central canal stenosis and small bilateral foraminal protrusions with mild bilateral foraminal narrowing. 4. Mild compression inferior endplate L2 with slight edema. 5. Mild central canal stenosis L4-L5 and L5-S1 with a small annular fissure L4 -5. 6. Otherwise mild foraminal narrowing described above.
== END 2024-01-30 16:04 | disposition home or self-care (01) ==
LOC: RAD 16:03
PROVIDERS: PCP Family Medicine; Referring Provider Family Medicine; Visit Provider Family Medicine
DX: M48.56XD Collapsed vertebra, not elsewhere classified, lumbar region, subsequent encounter for fracture with routine healing (principal); M48.061 Spinal stenosis, lumbar region without neurogenic claudication; M48.07 Spinal stenosis, lumbosacral region
CPT/HCPCS: 72148

== ENCOUNTER 2024-01-31 08:54 | Day surgery (SDC) | payer MEDICAID, SELFPAY ==
[2024-01-31] VITALS (7 sets, daily range): BP systolic 146–188; BP diastolic 71–89; PULSE 70–75; RESP 16–20; TEMP 36.1–36.3; O2SAT 93–99; BMI 22.1
--- NOTE | 2024-01-31 09:38 | W.PM.OPSUD ---
Surgery/Procedure H&P Update DATE OF PROCEDURE: January 31, 2024 DATE H&P PERFORMED: 01/24/24 H&P UPDATE INFORMATION: I have reviewed H&P completed within last 30 days, I have examined patient prior to procedure and No changes to prior documentation PLANNED PROCEDURE: Operation Date: 01/31/24 14:10 Proposed Procedures p Dialysis Catheter Insertion [id number], N18.6(Not Applicable) - Braulio Henriquez DO
--- NOTE | 2024-01-31 10:04 | P.ANESASSM_ITS ---
Pre-Anesthetic Assessment Height/Weight: Height 1.75 m Weight 68.039 kg Temp Pulse Resp BP Pulse Ox O2 Del Method 97.0 F L 72 18 156/73 99 Room Air 01/31/24 09:14 01/31/24 09:14 01/31/24 09:14 01/31/24 09:14 01/31/24 09:14 01/31/24 09:16 Operation Date: 01/31/24 14:10 Proposed Procedures p Dialysis Catheter Insertion [id number], N18.6(Not Applicable) - Braulio Henriquez DO Last intake: Intake Last Liquid Date 01/30/24 Last Liquid Time 22:00 Last Solid Date 01/30/24 Last Solid Time 20:00 Social No alcohol and No tobacco Airway Submandibular: within normal limits Cervical ROM: within normal limits Mallampati: Class II CV/HEM Stable Angina, Coronary Artery Disease and Hypertension Chronic Renal Failure Metabolic Diabetes Mellitus and Hyperlipidemia Anesthetic Plan ASA status: 3 Anesthesia: Choice and MAC Medications/Allergies Home Medications Medication Instructions Recorded Confirmed Last Taken Type acetaminophen 325 mg capsule 650 mg PO Q4H PRN Pain 03/30/23 01/31/24 09/13/23 History (Tylenol) amlodipine 10 mg tablet 10 mg PO DAILY@03/30/23 01/30/24 01/30/24 09:00 History aspirin 325 mg tablet,delayed 650 mg PO Q4H PRN Pain 03/30/23 01/30/24 09/13/23 09:00 History release atorvastatin 10 mg tablet 10 mg PO BEDTIME@03/30/23 01/30/24 01/30/24 History benztropine 1 mg tablet 1 mg PO BID@03/30/23 01/30/24 01/30/24 09:00 History carbamazepine 200 mg tablet 200 mg PO TID@03/30/23 01/30/24 01/30/24 09:00 History carvedilol 25 mg tablet 25 mg PO BID@03/30/23 01/30/24 01/31/24 08:30 History fenofibrate 160 mg tablet 160 mg PO DAILY@03/30/23 01/30/24 01/30/24 09:00 History ferrous sulfate 325 mg (65 mg 325 mg PO DAILY@03/30/23 01/30/24 01/30/24 09:00 History iron) tablet multivitamin with folic acid 400 1 tab PO DAILY@03/30/23 01/30/24 01/30/24 09:00 History mcg tablet (Daily-Sean (with folic acid)) isosorbide mononitrate 60 mg 60 mg PO DAILY@07/18/23 01/30/24 01/30/24 09:00 History tablet,extended release 24 hr blood sugar diagnostic (OneTouch #10 ea 09/26/23 01/24/24 Unknown History Ultra Test strips) lancets 33 gauge (TRUEplus Lancets) #100 ea 09/26/23 01/24/24 Unknown History pen needle, diabetic 31 gauge x #1,200 ea 09/26/23 01/24/24 Unknown History 02/13 (TechLITE Pen Needle) gabapentin 300 mg capsule 300 mg PO DAILY@10/24/23 01/30/24 01/30/24 09:00 History aripiprazole 15 mg tablet 15 mg PO DAILY@12/07/23 01/30/24 01/30/24 09:00 History hydralazine 10 mg tablet 25 mg PO QID 12/07/23 01/30/24 01/30/24 09:00 History insulin aspart U-100 100 unit/mL See Rx Instructions .Route .COMPLEX 12/07/23 01/30/24 01/30/24 History (3 mL) subcutaneous pen (Novolog FlexPen U-100 Insulin aspart) lanolin alcohols-mineral 1 applic topical DAILY PRN unknown 12/07/23 01/30/24 Unknown History oil-w.petrolatum-ceresin topical cream (Eucerin topical cream) lurasidone 120 mg tablet (Latuda) 60 mg PO BID@12/07/23 01/30/24 01/30/24 09:00 History magnesium oxide 400 mg PO TID@,12/07/23 01/30/24 01/30/24 09:00 History trazodone 100 mg tablet 100 mg PO BEDTIME@12/07/23 01/30/24 01/29/24 21:00 History hydrocodone 5 mg-acetaminophen 325 1 tab PO BID PRN Pain 01/30/24 01/30/24 Unknown History mg tablet naloxone 4 mg/actuation nasal 1 spray intranasal PRN PRN Opioid 01/30/24 01/30/24 Unknown History spray (Narcan) Reversal Allergies Allergy/AdvReac Type Severity Reaction Status Date / Time No Known Allergies Allergy Verified 01/31/24 09:09 [facility] Anesthesia Medical History Hyperlipemia, mixed Acute renal failure Acute kidney injury superimposed on CKD Acute hyponatremia Hyponatremia Anemia Hypervolemia Tobacco abuse Diabetes Social History Smoking and tobacco/nicotine status: current every day tobacco/nicotine user Data Anesthesia Cardiac Studies: Echocardiogram 09/13/23 Sestamibi Stress Test (Cardiology) 09/06
[2024-01-31 10:05] LABS: Glucose Point of Care 117 mg/dL (70-110)
[2024-01-31] MEDS: sodium chloride 0.9% 1,000 ML 30 ML IV (10:15)
[2024-01-31] MEDS: ceFAZolin 2,000 MG in sodium chloride 0.9% (plus) 50 ML 100 MG IV (10:34)
--- NOTE | 2024-01-31 11:06 | SC_ITS ---
WS: [id number] C-arm FL for CVA 54064 REASON FOR EXAM: DIALYSIS CATH PLACEMENT FINDINGS: Right internal jugular dialysis catheter placement. Catheter tip is within the right atrium. Normal c ontour of the catheter without kinking. No abnormality in the right hemithorax. SC/C-arm FL for CVA [id number] IMPRESSION: Placement of right internal jugular dialysis catheter in proper position. No co mplications.
[2024-01-31] MEDS: lidocaine-epi 1% 20 mL INJ 10 ML INJECTION (11:11)
[2024-01-31] MEDS: heparin, porcine 1,000 unit/mL INJ 10 mL 6000 UNIT INJECTION (11:16)
--- NOTE | 2024-01-31 11:23 | PM.OP ---
Operative Report Date of procedure: January 31, 2024 Pre-op diagnosis: End-stage renal disease Post-op diagnosis: same Procedure done: Permacath placement Intraoperative interpretation of fluoroscopy Implants: 23 cm permacath Specimens removed/disposition: None Surgeon: Braulio Henriquez DO Anesthesia: MAC and Local Estimated blood loss (mL): 5 Complications: None apparent Brief History: This very pleasant 53-year-old gentleman with end-stage renal disease. Nephrology requested permacath placement for hemodialysis. The risks and benefits were explained and documented. Procedure: Patient was taken to the operating room and placed supine on the operating room table. All bony prominences were padded. He was given IV sedation and monitored throughout the case by the anesthesia personnel. SCDs were placed and turned on. The arms were tucked to the side. Patient received Vancomycin preoperatively IV. The bilateral chest wall was prepped and draped in usual sterile fashion using chlorhexidine base prep. Sterile drapes were applied. We did procedure pause prior to beginning. An 18 gauge needle was placed in the right internal jugular vein under ultrasound guidance. Dark, nonpulsatile blood was aspirated. A guidewire was placed through the needle centrally toward the atrial/vena caval junction. Fluoroscopy visualized good placement. The needle was removed and the guidewire was clipped to the drape with a hemostat. Further local anesthetic was infiltrated in the soft tissues of the right chest wall and a #15 blade was used to make a vertical skin incision. A #15 blade was used to make a small skin sven around the guidewire insertion area. The permacath tubing was tunneled through the subcutaneous tissues up to the needle insertion location. Serial dilators were used to serially dilate over the guidewire . A dilator with a peel-away sheath was placed over the guidewire and placed centrally. The guidewire was removed as well as the dilator and the permacath was fed into the split sheath. The split sheath was removed. Both ports were aspirated to reveal dark blood and were flushed with saline only as the patient has a heparin allergy. Final fluoroscopy visualization showed no kink in the catheter and the tip of the permacath tubing near the atrial/vena caval junction. No obvious pneumothorax. Both skin incisions were thoroughly irrigated and suctioned dry. Meticulous hemostasis noted. The internal jugular access site was closed with 4-0 Vicryl in a subcuticular fashion. The skin overlying the permacath was closed in a similar manner. The permacath was then sutured into place using 2-0 nylon in a simple interrupted fashion. skin glue was applied as a topical dressing. This was allowed to dry. Patient was awakened from anesthesia and transferred via her cart to the recovery room in stable condition. All needle, sponge, and instrument counts were correct per the operating personnel x2 counts.
--- NOTE | 2024-01-31 12:05 | XRR_ITS ---
PROCEDURE INFORMATION: Exam: XR Chest Exam date and time: 01/31/2024 12:23 PM Age: 53 years old Clinical indication: Device placement; Other: Permacath; Prior surgery; Surgery date: Post-operative (0-2 days); Additional info: Postop permacath TECHNIQUE: Imaging protocol: Radiologic exam of the chest. Views: 1 view. COMPARISON: CR XR chest 1V portable [id number] 01/25/2024 5:42 PM FINDINGS: Tubes, catheters and devices: Right internal jugular central line tip is in the upper right atrium near the cavoatrial junction. Lungs: There is no consolidation. Central interstitial markings are indistinct. Pleural spaces: There is no pleural effusion or pneumothorax. Heart/Mediastinum: There is mild enlargement of the cardiac silhouette. Bones/joints: Bones are unremarkable. XR/XR chest 1V portable [id number] IMPRESSION: 1. Appropriately positioned right internal jugular central line. 2. Possible mild interstitial edema, decreased since 01/25/2024.
--- NOTE | 2024-01-31 19:03 | ANE.PACU2 ---
Inpatient post-anesthesia follow up: Airway intact: Yes Vital signs: Temperature 97.4 F Pulse Rate 72 Respiratory Rate 16 Blood Pressure 188/89 Pulse Oximetry 96 Oxygen Delivery Me thod Room Air Oxygen Flow Rate Fraction of Inspir ed Oxygen Hydration adequate: Yes Nausea and vomiting: No Pain level: 3 Mental status: Baseline
== END 2024-01-31 12:51 | disposition home or self-care (01) ==
PROVIDERS: PCP Family Medicine; Visit Provider Surgery
PROC: (CPT 36561; principal; 2024-01-31 14:10)
DX: E11.22 Type 2 diabetes mellitus with diabetic chronic kidney disease (principal); I12.9 Hypertensive chronic kidney disease with stage 1 through stage 4 chronic kidney disease, or unspecified chronic kidney disease; N18.6 End stage renal disease; I25.10 Atherosclerotic heart disease of native coronary artery without angina pectoris; E78.5 Hyperlipidemia, unspecified; Z79.4 Long term (current) use of insulin; F17.210 Nicotine dependence, cigarettes, uncomplicated; F79 Unspecified intellectual disabilities; Z79.82 Long term (current) use of aspirin
CPT/HCPCS: 36561; 36416; 71045; 77001; 82962; C1750; J0690; J1100; J1644; J1885; J2405; J2704; J3010; J7030

== ENCOUNTER 2024-01-31 13:01 | Emergency (ER) | payer MEDICAID, SELFPAY ==
--- NOTE | 2024-01-31 13:05 | ED_ITS ---
HPI - General Adult 2 General: Chief complaint: General Medical Stated complaint: post op surgery port Time Seen by Provider: 01/31/24 13:03 Source: patient and other (Caregiver) Mode of arrival: wheelchair History of Present Illness: 53-[facility]. Patient has developmental issues and cognitive dysfunction he also has end-stage renal disease he is known diagnosis he had a tunneled dialysis catheter placed. He was previously seen carpet measurer in [place] who is not going to be seeing anymore because he lives in [place]. Caregivers brought him here because they were told by the dialysis clinic that the patient needed to come here to be consulted by a carpet measurer so that they could initiate dialysis. He does not have any acute ongoing issues at this time. Within an hour prior to presenting to the emergency room patient was discharged from outpatient surgery with his tunneled dialysis catheter Associated symptoms: Deny chest pain, cough, decreased appetite, dyspnea, fevers/chills, rash, seizures, short of breath, vomiting or weakness Treatments prior to arrival: none Review of Systems 2 Const: Denies: fever(s) or chills Card: Denies: chest pain Resp: Denies: dyspnea GI: Denies: abdominal pain or vomiting Skin/Breast: Denies: rash PFSH ED 2 PFSH: Medical History Hyperlipemia, mixed Acute renal failure Acute kidney injury superimposed on CKD Acute hyponatremia Hyponatremia Anemia Hypervolemia Tobacco abuse Diabetes Social History Smoking and tobacco/nicotine status: current every day tobacco/nicotine user Physical Exam 2 Const: COMMON NORMALS: no acute distress GENERAL APPEARANCE: cooperative and comfortable ORIENTATION/CONSCIOUSNESS: Yes awake HENMT: COMMON NORMALS: normocephalic, atraumatic and hearing grossly normal bilaterally HEAD & SCALP: normocephalic and atraumatic Chest: OTHER: Fresh surgical wounds on the chest from the tunneled dialysis catheter no signs of hematoma or dehiscence or complication. Resp: COMMON NORMALS: normal respiratory effort, No retractions, No use of accessory muscles and clear to auscultation bilaterally AUSCULTATION: clear to auscultation bilaterally Cardio: COMMON NORMALS: regular rate, regular rhythm and No murmurs present (Cardio) RATE: regular rate RHYTHM: regular rhythm GI: COMMON NORMALS: Soft to palpation and No hepatosplenomegaly present A USCULTATION: Yes normoactive bowel sounds PALPATION: Yes Soft to palpation, No Tenderness to palpation present (GI), No Guarding due to palpation present (GI) and Yes No hepatosplenomegaly present Extremity: COMMON NORMALS: normal to inspection, capillary refill normal, no clubbing, cyanosis or edema, no calf tenderness and no pedal edema Skin: COMMON NORMALS: no rashes or lesions noted GENERAL SKIN EXAM: no rashes or lesions noted Course 2 Vital Signs: Vital signs: Vital Signs Pulse Rate 71 01/31/24 13:07 Blood Pressure 187/90 01/31/24 13:07 Pulse Oximetry 99 01/31/24 13:07 Oxygen Delivery Me thod Room Air 01/31/24 13:07 MDM - General Adult Medical Decision Making Patient does have end-stage renal disease and will require dialysis but he is not urgently or emergently require dialysis at this time. He can be discharged home encouraged him to follow-up with neuro nephrology to establish and initiate dialysis. [facility] had been requesting nephrology consult so that he get started on dialysis. We do not have local nephrology ERs as inpatient only and I do not believe this will meet the requirement that they need to have him start and maintain dialysis. His caregivers are going to seek assistance from [facility] nephrology clinic to establish with someone so he can get on his regular routine. Continue same medications for now return if has further problems. If is not able to establish some the next few days he will need to return to be reevaluated Medical Records I reviewed the patient's medical records. Lab Data I reviewed the patient's lab results. 01/31/24 13:28 01/31/24 13:28 Laboratory Results WBC 6.88 10^3/uL (3.29-11.43) 01/31/24 13:28 RBC 2.42 10^6/uL (3.85-5.65) L 01/31/24 13:28 Hgb 7.40 g/dL (11.27-16.99) L 01/31/24 13:28 Hct 23.7 % (37-53) L 01/31/24 13:28 MCV 97.9 fl (82-101) 01/31/24 13:28 MCH 30.6 pg (27-33) 01/31/24 13:28 MCHC 31.2 g/dL (30-55) 01/31/24 13:28 RDW 13.2 % (12.1-15.1) 01/31/24 13:28 Plt Count 302 10^3/cmm (157-399) 01/31/24 13:28 MPV 8.5 fL (7.4-10.4) 01/31/24 13:28 Neut % (Auto) 71.3 % 01/31/24 13:28 Lymph % (Auto) 20.8 % 01/31/24 13:28 [place] % (Auto) 5.7 % 01/31/24 13:28 Eos % (Auto) 1.2 % 01/31/24 13:28 Baso % (Auto) 0.4 % 01/31/24 13:28 Neut # (Auto) 4.91 10^3/uL (1.8-7.7) 01/31/24 13:28 Lymph # (Auto) 1.4 10^3/uL (0.8-4.8) 01/31/24 13:28 [place] # (Auto) 0.4 10^3/uL (0.2-0.9) 01/31/24 13:28 Eos # (Auto) 0.1 10^3/uL (0.0-0.8) 01/31/24 13:28 Baso # (Auto) 0.0 10^3/uL (0.0-0.1) 01/31/24 13:28 Nucleated RBC % (auto) 0 % 01/31/24 13:28 Nucleated RBCs # 0.0 /100WBC 01/31/24 13:28 Sodium 135 mmol/L (136-145) L 01/31/24 13:28 Potassium 4.8 mmol/L (3.5-5.1) 01/31/24 13:28 Chloride 102 mmol/L (98-107) 01/31/24 13:28 Carbon Dioxide 22 mmol/L (22-29) 01/31/24 13:28 Anion Gap 15.8 (5-19) 01/31/24 13:28 BUN 58 mg/dL (6-20) H 01/31/24 13:28 Creatinine 4.9 mg/dL (0.7-1.2) H 01/31/24 13:28 GFR Calculation 15.1 mL/min (90-130) L 01/31/24 13:28 Glucose 114 mg/dL (65-115) 01/31/24 13:28 Calculated Osmolality 297 mOsm/kg (285-295) H 01/31/24 13:28 Calcium 9.1 mg/dL (8.5-10.5) 01/31/24 13:28 Magnesium 2.7 mg/dL (1.7-2.3) H 01/31/24 13:28 Total Bilirubin 0.2 mg/dL (0.15-1.2) 01/31/24 13:28 AST 21 U/L (0-40) 01/31/24 13:28 ALT 14 U/L (0-41) 01/31/24 13:28 Alkaline Phosphatase 87 U/L (40-130) 01/31/24 13:28 Total Protein 7.1 g/dL (6.6-8.7) 01/31/24 13:28 Albumin 3.8 g/dL (3.5-5.2) 01/31/24 13:28 Globulin 3.3 g/dL (1.3-4.6) 01/31/24 13:28 All radiology interpretation(s) finalized by discharge Discharge Plan Discharge Patient Disposition: Home Clinical Impression: ESRD (end stage renal disease), Anemia Condition: Stable Prescriptions: No Action isosorbide mononitrate 60 mg tablet extended release 24 hr 60 mg PO DAILY@09 (DME) OneTouch Ultra Test Strip See Rx Instructions .ROUTE .MEDSUPPLY Qty: 10 Rx Instructions: As directed (DME) pen needle, diabetic [TechLITE Pen Needle] 31 gauge x 5/16 needle See Rx Instructions .ROUTE .MEDSUPPLY Qty: 1200 Rx Instructions: As directed (DME) lancets [TRUEplus Lancets] 33 gauge misc See Rx Instructions .ROUTE .MEDSUPPLY Qty: 100 Rx Instructions: As directed carvedilol 25 mg Tablet 25 mg PO BID@,21 Rx Instructions: must administer with a meal/food. Hold if systolic BP is below 90 or diastolic BP below 60. atorvastatin 10 mg Tablet 10 mg PO BEDTIME@21 carbamazepine 200 mg Tablet 200 mg PO TID@,14,21 aspirin 325 mg tablet,delayed release (DR/EC) 650 mg PO Q4H PRN (Reason: Pain) Hold Instructions: Resume on 02/02/24. amlodipine 10 mg Tablet 10 mg PO DAILY@09 ferrous sulfate 325 mg (65 mg iron) Tablet 325 mg PO DAILY@09 benztropine 1 mg Tablet 1 mg PO BID@,21 fenofibrate 160 mg Tablet 160 mg PO DAILY@09 acetaminophen [Tylenol] 325 mg Capsule 650 mg PO Q4H PRN (Reason: Pain) Hold Instructions: Resume on 02/03/24. multivitamin with folic acid [Daily-Sean (with folic acid)] 400 mcg tablet 1 tab PO DAILY@09 gabapentin 300 mg capsule 300 mg PO DAILY@09 trazodone 100 mg tablet 100 mg PO BEDTIME@21 aripiprazole 15 mg tablet 15 mg PO DAILY@09 insulin aspart U-100 [Novolog FlexPen U-100 Insulin] 100 unit/mL (3 mL) insulin pen See Rx Instructions .ROUTE .COMPLEX Rx Instructions: sliding scale subcutaneously tid Eucerin Cream 1 applic TOPICAL DAILY PRN (Reason: unknown) lurasidone [Latuda] 120 mg tablet 60 mg PO BID@, magnesium oxide 400 mg magnesium tablet 400 mg PO TID@,, hydrocodone-acetaminophen 5-325 mg tablet 1 tab PO BID PRN (Reason: Pain) Hold Instructions: Resume on 02/03/24. naloxone [Narcan] 4 mg/actuation spray,non-aerosol 1 spray INTRANASAL PRN PRN (Reason: Opioid Reversal) hydralazine 25 mg tablet 25 mg PO QID metoclopramide HCl 10 mg tablet 10 mg PO Q8H PRN (Reason: Nausea) Discharge Orders: Discharge ED (Routine); Ordered 01/31/24 Ordered By: Hamilton John Referrals: Ahsan Gilliam MD [Primary Care Provider] - Discharge Diet: Usual diet Discharge Activity: Resume usual activity Patient Instructions: Opioid Safety, Pain Management Activity Restrictions/Additional Instructions: Thank you for choosing [facility] for your healthcare needs today. Please realize this is an emergency room and that we are providing you with a medical screening exam and this may not be complete and all inclusive of all the testing and or work up that you may need to determine your ailment or severity of your illness. It is very important that you follow up as instructed or that you return to the Emergency Department should you have concerns or if your condition changes or worsens in any way. You are seen today in the emergency room regarding your renal disease. Laboratory studies are consistent with your known history of end-stage renal disease. It is not acutely decompensated at this time and do not require immediate dialysis however this should be arranged for. You have the tunneled dialysis cath at this point. You will need to establish with a carpet measurer so that you can receive dialysis treatments. Coding Level of Care Code ED Regional Account Executive for Maria R Garrison
[2024-01-31 13:07] VITALS: BP 187/90; PULSE 71; O2SAT 99; BMI 22.4
[2024-01-31 13:34] LABS: Basophils % 0.4 %; Eosinophils # 0.1 10^3/uL (0.0-0.8); Eosinophils % 1.2 %; Hematocrit 23.7 % (37-53); Lymphocytes # 1.4 10^3/uL (0.8-4.8); Lymphocytes % 20.8 %; Mean Corpuscular HGB Conc 31.2 g/dL (30-55); Mean Corpuscular Hemoglobin 30.6 pg (27-33); Mean Corpuscular Volume 97.9 fl (82-101); Mean Platelet Volume 8.5 fL (7.4-10.4); Monocytes # 0.4 10^3/uL (0.2-0.9); Monocytes % 5.7 %; Neutrophils # 4.91 10^3/uL (1.8-7.7); Neutrophils % 71.3 %; Nucleated Red Blood Cells % 0 %; Platelet Count 302 10^3/cmm (157-399); Red Blood Count 2.42 10^6/uL (3.85-5.65); Red Cell Distribution Width 13.2 % (12.1-15.1); White Blood Count 6.88 10^3/uL (3.29-11.43)
[2024-01-31 13:49] LABS: Alanine Aminotransferase 14 U/L (0-41); Albumin Level 3.8 g/dL (3.5-5.2); Alkaline Phosphatase 87 U/L (40-130); Anion Gap 15.8 (5-19); Aspartate Amino Transferase 21 U/L (0-40); Blood Urea Nitrogen 58 mg/dL (6-20); Calcium 9.1 mg/dL (8.5-10.5); Carbon Dioxide 22 mmol/L (22-29); Chloride 102 mmol/L (98-107); Creatinine Clr Calc Pharmacy 17.0631; Globulin 3.3 g/dL (1.3-4.6); Glomerular Filtration Rate 15.1 mL/min (90-130); Glucose 114 mg/dL (65-115); Magnesium 2.7 mg/dL (1.7-2.3); Osmolality Calculated 297 mOsm/kg (285-295); Potassium 4.8 mmol/L (3.5-5.1); Sodium 135 mmol/L (136-145); Total Bilirubin 0.2 mg/dL (0.15-1.2); Total Protein 7.1 g/dL (6.6-8.7)
== END 2024-01-31 14:31 | disposition home or self-care (01) ==
PROVIDERS: Emergency Provider Family Medicine; PCP Family Medicine
DX: D64.9 Anemia, unspecified (principal); E11.22 Type 2 diabetes mellitus with diabetic chronic kidney disease; N18.6 End stage renal disease; Z79.4 Long term (current) use of insulin; Z72.0 Tobacco use; E78.2 Mixed hyperlipidemia
CPT/HCPCS: 80053; 83735; 85025; 99284

== ENCOUNTER → 2024-02-06 13:09 | Outpatient (BNVA) | payer MEDICAID, SELFPAY | PROVIDERS: PCP Family Medicine; Visit Provider Podiatrist Foot & Ankle Surgery | DX: L60.3 Nail dystrophy (principal); N18.6 End stage renal disease; G62.9 Polyneuropathy, unspecified; E11.42 Type 2 diabetes mellitus with diabetic polyneuropathy | CPT/HCPCS: 11721; 99203 ==

== ENCOUNTER → 2024-02-07 14:06 | Outpatient (BNVA) | payer MEDICAID, SELFPAY | PROVIDERS: PCP Family Medicine; Referring Provider Family Medicine; Visit Provider Orthopaedic Surgery | DX: M54.9 Dorsalgia, unspecified (principal) | CPT/HCPCS: 80053; 85025; 99204 ==

== ENCOUNTER → 2024-02-11 10:52 | Outpatient (BNVA) | payer MEDICAID, SELFPAY | PROVIDERS: PCP Family Medicine; Visit Provider Surgery | DX: N18.6 End stage renal disease (principal) | CPT/HCPCS: 99214 ==

== ENCOUNTER 2024-02-15 06:47 | Day surgery (SDC) | payer MEDICAID, SELFPAY ==
[2024-02-15] VITALS (10 sets, daily range): BP systolic 173–219; BP diastolic 78–96; PULSE 65–81; RESP 10–18; TEMP 36.1–36.2; O2SAT 96–100; BMI 22.4
--- NOTE | 2024-02-15 06:51 | SC_ITS ---
WS: [id number] C-arm fluoroscopy for kyphoplasty, 02/15/2024 Clinical Data: Surgery Comparison: Lumbar spine, 01/09/2024 Findings: Dr. Goins performed a lumbar kyphoplasty. SC/C-arm FL for Kyphoplasty Impression: Lumbar kyphoplasty.
[2024-02-15] MEDS: sodium chloride 0.9% 1,000 ML 30 ML IV (07:17)
[2024-02-15 07:19] LABS: Glucose Point of Care 111 mg/dL (70-110)
--- NOTE | 2024-02-15 08:05 | W.PM.OPSUD ---
Surgery/Procedure H&P Update DATE OF PROCEDURE: February 15, 2024 DATE H&P PERFORMED: 02/08/24 H&P UPDATE INFORMATION: I have reviewed H&P completed within last 30 days, I have examined patient prior to procedure and No changes to prior documentation PREOP DIAGNOSIS: L2 and L3 osteoporotic traumatic wedge compression fracture PLANNED PROCEDURE: Operation Date: 02/15/24 08:05 Proposed Procedures p Kyphoplasty L2-L3(Not Applicable) - Bello Goins DO
[2024-02-15] MEDS: ceFAZolin 2,000 MG in sodium chloride 0.9% (plus) 50 ML 100 MG IV (08:43)
[2024-02-15] MEDS: lidocaine-epi 1% 20 mL INJ 10 ML INJECTION (09:20)
--- NOTE | 2024-02-15 09:23 | ANES.PREANE2 ---
Pre-Anesthetic Assessment Height/Weight: Height 1.75 m Weight 68.946 kg Temp Pulse Resp BP Pulse Ox O2 Del Method 97.2 F L 78 16 219/96 100 Room Air 02/15/24 07:02 02/15/24 07:02 02/15/24 07:02 02/15/24 07:02 02/15/24 07:02 02/15/24 07:10 Preop Diagnosis: L2 and L3 osteoporotic traumatic wedge compression fracture Operation Date: 02/15/24 08:05 Proposed Procedures p Kyphoplasty L2-L3(Not Applicable) - Bello Goins DO Familial anesthetic complications: none Was Beta Leigh taken within 24 hours: Yes Was Clonidine taken within 24 hours: N/A Last intake: Intake Last Liquid Date 02/14/24 Last Liquid Time 20:00 Last Solid Date 02/14/24 Last Solid Time 18:00 Social Tobacco and No alcohol Exam alert, oriented x 3, clear to auscultation bilaterally and regular rate & rhythm Airway Submandibular: within normal limits Cervical ROM: within normal limits Mallampati: Class II Dentition: false Pulmonary Chronic Obstructive Pulmonary Disease CV/HEM Hypertension Chronic Renal Failure Metabolic Diabetes Mellitus Neuropsych Neuropathy Mental disability Anesthetic Plan ASA status: 3 Anesthesia: General Medications/Allergies Home Medications Medication Instructions Recorded Confirmed Last Taken Type acetaminophen 325 mg capsule 650 mg PO Q4H PRN Pain 03/30/23 02/14/24 02/13/24 History (Tylenol) amlodipine 10 mg tablet 10 mg PO DAILY@03/30/23 02/14/24 02/14/24 History atorvastatin 10 mg tablet 10 mg PO BEDTIME@03/30/23 02/14/24 02/14/24 History benztropine 1 mg tablet 1 mg PO BID@,03/30/23 02/14/24 02/13/24 History carbamazepine 200 mg tablet 200 mg PO TID@,,03/30/23 02/14/24 02/14/24 History carvedilol 25 mg tablet 25 mg PO BID@,03/30/23 02/14/24 02/14/24 History ferrous sulfate 325 mg (65 mg 325 mg PO DAILY@03/30/23 02/14/24 02/14/24 History iron) tablet multivitamin with folic acid 400 1 tab PO DAILY@03/30/23 02/14/24 02/14/24 History mcg tablet (Daily-Sean (with folic acid)) isosorbide mononitrate 60 mg 60 mg PO DAILY@07/18/23 02/14/24 02/14/24 History tablet,extended release 24 hr blood sugar diagnostic (OneTouch #10 ea 09/26/23 02/11/24 Unknown History Ultra Test strips) lancets 33 gauge (TRUEplus Lancets) #100 ea 09/26/23 02/11/24 Unknown History pen needle, diabetic 31 gauge x #1,200 ea 09/26/23 02/11/24 Unknown History 02/13 (TechLITE Pen Needle) gabapentin 300 mg capsule 300 mg PO DAILY@10/24/23 02/14/24 02/14/24 History aripiprazole 15 mg tablet 15 mg PO DAILY@12/07/23 02/14/24 02/14/24 History insulin aspart U-100 100 unit/mL See Rx Instructions .Route .COMPLEX 12/07/23 02/14/24 02/14/24 History (3 mL) subcutaneous pen (Novolog FlexPen U-100 Insulin aspart) lanolin alcohols-mineral 1 applic topical DAILY PRN unknown 12/07/23 02/14/24 02/14/24 History oil-w.petrolatum-ceresin topical cream (Eucerin topical cream) lurasidone 120 mg tablet (Latuda) 60 mg PO BID@,12/07/23 02/14/24 02/14/24 History magnesium oxide 400 mg PO TID@,,12/07/23 02/14/24 02/14/24 History trazodone 100 mg tablet 100 mg PO BEDTIME@12/07/23 02/14/24 02/14/24 History naloxone 4 mg/actuation nasal 1 spray intranasal PRN PRN Opioid 01/30/24 02/14/24 02/14/24 History spray (Narcan) Reversal hydralazine 25 mg tablet 25 mg PO QID 01/31/24 02/14/24 02/14/24 History metoclopramide HCl 10 mg tablet 10 mg PO Q8H PRN Nausea 01/31/24 02/14/24 02/14/24 History hydrocodone 7.5 mg-acetaminophen 1 tab PO Q6H PRN Pain (Scale Score 02/07/24 02/14/24 02/14/24 History 325 mg tablet 7-10) aspirin 325 mg tablet,delayed 325 mg PO DAILY 02/15/24 02/15/24 02/09/24 History release fenofibrate 160 mg tablet 160 mg PO DAILY 02/15/24 02/15/24 02/13/24 History Allergies Allergy/AdvReac Type Severity Reaction Status Date / Time No Known Allergies Allergy Verified 02/14/24 12:19 Current Medications Generic Name Dose Route Start Last Admin Trade Name Freq PRN Reason Stop Dose Admin Sodium Chloride 1,000 mls @ 30 mls/hr 02/15/24 07:00 02/15/24 07:17 Sodium Chloride 0.9% IV 02/16/24 06:59 30 mls/hr .Q24H CARLOS Administration PFSH Anesthesia Medical History Hyperlipemia, mixed Acute renal failure Acute kidney injury superimposed on CKD Acute hyponatremia Hyponatremia Anemia Hypervolemia Tobacco abuse Diabetes Social History Smoking and tobacco/nicotine status: current every day tobacco/nicotine user Data Anesthesia Cardiac Studies: Echocardiogram 09/13/23 Sestamibi Stress Test (Cardiology) 09/06/23
--- NOTE | 2024-02-15 09:41 | PM.OP ---
Operative Report Date of procedure: February 15, 2024 Pre-op diagnosis: 1. L2 wedge osteoporotic traumatic compression fracture 2. L3 wedge osteoporotic traumatic compression fracture Post-op diagnosis: same Procedure done: 1. L2 kyphoplasty 2. L3 kyphoplasty Surgeon: Bello Goins DO Estimated blood loss (mL): 5 Procedure: 1. L2 kyphoplasty 2. L3 kyphoplasty Patient brought the op suite after undergoing anesthesia was placed in the prone position. All areas impingement well-padded. Patient appropriate and was rolled fashion. C-arm was brought in to identify the L2 and L3 compression fractures. Skin incision is made over the left pedicle of L3. Stab incision made the awl was inserted through the pedicle into the vertebral body this was then followed by using the drill. The balloon was inserted inflated deflated. Extension was brought to the L2 level. The stem sutures made over the left pedicle. The awl was inserted followed by the drill. Line was inserted. And the cement was then injected into the L2 level after the balloon was taken out. Cement was had a good fill. Was brought to placing the cement into the L3 level again a good fill was found and AP lateral fluoroscopy ensured the cement and fracture were in good position. Wounds were irrigated closed with nylon suture. Sterile dressings were applied patient was transferred to PACU in stable condition.
--- NOTE | 2024-02-15 11:08 | ANE.PACU2 ---
Inpatient post-anesthesia follow up: Airway intact: Yes Vital signs: Temperature 97.2 F Pulse Rate 81 Respiratory Rate 17 Blood Pressure 191/88 Pulse Oximetry 96 Oxygen Delivery Me thod Room Air Oxygen Flow Rate 6 Fraction of Inspir ed Oxygen Hydration adequate: Yes Nausea and vomiting: No Pain level: 2 Mental status: Baseline
== END 2024-02-15 11:07 | disposition home or self-care (01) ==
PROVIDERS: PCP Family Medicine; Visit Provider Orthopaedic Surgery
PROC: (CPT 22514; principal; 2024-02-15 08:05)
DX: S32.020A Wedge compression fracture of second lumbar vertebra, initial encounter for closed fracture (principal); X58.XXXA Exposure to other specified factors, initial encounter
CPT/HCPCS: 22514; 22515; 36416; 76000; 82962; J0690; J1100; J2371; J2405; J2704; J3010; J3490; J7030

== ENCOUNTER → 2024-02-28 15:02 | Outpatient (BNVA) | payer MEDICAID, SELFPAY | PROVIDERS: PCP Family Medicine; Visit Provider Orthopaedic Surgery | DX: Z98.890 Other specified postprocedural states (principal) | CPT/HCPCS: 99024 ==

== ENCOUNTER 2024-04-05 18:06 | Emergency (ER) | payer MEDICAID, SELFPAY ==
[2024-04-05 18:08] VITALS: BP 150/82; PULSE 89; RESP 20; TEMP 37.2; O2SAT 98; BMI 19.9
--- NOTE | 2024-04-05 18:11 | ECG_ITS ---
[facility] Test Date: 2024-04-05 Pat Name: Tyrese Leach Department: Room: Gender: Male Health Clinician: : 1970 Requested By: Bogdan Durant Order Number: [id number] Debora MD: Izaiah Reyna M.D. Measurements Intervals [place] Rate: 90 P: 60 WV: 188 QRS: -51 QRSD: 110 T: 93 QT: 380 QTc: 466 Interpretive Statements SINUS RHYTHM LEFT ANTERIOR FASCICULAR BLOCK [QRS AXIS <= -45, QR IN I, RS IN II] LEFT VENTRICULAR HYPERTROPHY AND ST-T CHANGE [VOLTAGE CRITERIA PLUS ST/T ABNORMALITY] POSSIBLE SEPTAL MYOCARDIAL INFARCTION , OF INDETERMINATE AGE [30 ms Q WAVE IN V1/V2] Compared to ECG 01/25/2024 18:45:17 Left anterior fascicular block now present Left ventricular hypertrophy now present ST (T wave) deviation now present Intraventricular conduction delay no longer present Electronically Signed On 04-06-2024 19:21:08 CDT by Izaiah Reyna M.D. [email or web address]
--- NOTE | 2024-04-05 18:28 | ED_ITS ---
HPI - Chest Pain 2 General: Chief Complaint: Chest Pain Stated Complaint: CHEST PAIN Time Seen by Provider: 04/05/24 18:13 History of Present Illness: 53yo male with ESRD and no prior history of heart disease. He does have insulin-dependent diabetes. He presents with chest discomfort, on the left side of his chest that radiates into his left arm. It is gone currently. He had complained about it several hours earlier in the day. It seemed to start after his dosage of insulin. No vomiting. No shortness of breath. No significant cough. No fever. MD complaint: chest pain Associated symptoms: Deny dyspnea, fever(s) or vomiting Review of Systems 2 Const: Denies: fever(s) Card: Reports: chest pain Resp: Denies: dyspnea GI: Denies: vomiting PFSH ED 2 PFSH: Medical History Hyperlipemia, mixed Acute renal failure Acute kidney injury superimposed on CKD Acute hyponatremia Hyponatremia Anemia Hypervolemia Tobacco abuse Diabetes Social History Smoking and tobacco/nicotine status: current every day tobacco/nicotine user Physical Exam 2 Const: COMMON NORMALS: no acute distress GENERAL APPEARANCE: cooperative; not ill appearing and not frail appearing HENMT: COMMON NORMALS: normocephalic, atraumatic and Normal external nose present HEAD & SCALP: normocephalic and atraumatic FACE & SINUS: normal facial exam and face symmetric NOSE: Normal external nose present Eye: COMMON NORMALS: Equal, round and reactive pupils present and EOMs intact bilaterally PUPIL: Yes Equal, round and reactive pupils present Neck/C-Spine: GENERAL: Yes trachea midline Chest: CHEST: Yes Symmetrical chest wall rise and Yes tenderness (Left chest) Resp: COMMON NORMALS: normal respiratory effort, No retractions, No use of accessory muscles and clear to auscultation bilaterally AUSCULTATION: clear to auscultation bilaterally Cardio: COMMON NORMALS: regular rate and regular rhythm RATE: regular rate RHYTHM: regular rhythm GI: COMMON NORMALS: Normal to inspection, nondistended, normoactive bowel sounds present Extremity: COMMON NORMALS: no pedal edema Neuro: JOLLY COMA SCALE: document GCS findings [place] coma scale eye opening: Spontaneous [place] coma scale verbal response: Orientated [place] coma scale motor response: Obey commands Jolly coma scale total score: 15 S ENSORY EXAM: Yes extremities (intact) Psych: COMMON NORMALS: speech normal SPEECH: Yes normal speech Skin: COMMON NORMALS: no rashes or lesions noted GENERAL SKIN EXAM: no rashes or lesions noted Course 2 Vital Signs: Vital signs: Vital Signs Temperature 99.0 F 04/05/24 18:08 Pulse Rate 84 04/05/24 19:30 Respiratory Rate 18 04/05/24 19:30 Blood Pressure 159/81 04/05/24 19:30 Pulse Oximetry 100 04/05/24 19:30 Oxygen Delivery Me thod Room Air 04/05/24 18:08 MDM - Chest Pain Medical Decision Making Patient has essentially remained asymptomatic here. His vitals been good. His EKG shows a sinus rhythm, left axis deviation, and some J-point elevation, appearing in V1 and V2. These do not look ischemic. At his 2-hour EKG, they are more normal in appearance, and both EKGs are similar to prior EKGs. His baseline troponin was 87, which is near his baseline. His 2-hour is 84. His delta is 2.7. His BNP is elevated. His creatinine is 3.2. His electrolytes are normal. No fluid overload on chest x-ray. His pain is somewhat reproducible. This may be esophageal spasm, chest wall inflammation, anxiety, etc. His saturations are 98 to 100%. He shows no clinical signs of PE. He will be allowed discharge to return for worsening symptoms or new symptoms. Close outpatient follow-up is encouraged Lab Data 04/05/24 17:55 04/05/24 17:55 Radiology Impressions Chest X-Ray 04/05/24 19:17 IMPRESSION: Cardiomegaly. Laboratory Results WBC 4.93 10^3/uL (3.29-11.43) 04/05/24 17:55 RBC 3.39 10^6/uL (3.85-5.65) L 04/05/24 17:55 Hgb 10.00 g/dL (11.27-16.99) L 04/05/24 17:55 Hct 32.1 % (37-53) L 04/05/24 17:55 MCV 94.7 fl (82-101) 04/05/24 17:55 MCH 29.5 pg (27-33) 04/05/24 17:55 MCHC 31.2 g/dL (30-55) 04/05/24 17:55 RDW 15.3 % (12.1-15.1) H 04/05/24 17:55 Plt Count 264 10^3/cmm (157-399) 04/05/24 17:55 MPV 10.0 fL (7.4-10.4) 04/05/24 17:55 Neut % (Auto) 64.5 % 04/05/24 17:55 Lymph % (Auto) 25.2 % 04/05/24 17:55 Mccone % (Auto) 8.1 % 04/05/24 17:55 Eos % (Auto) 1.4 % 04/05/24 17:55 Baso % (Auto) 0.6 % 04/05/24 17:55 Neut # (Auto) 3.18 10^3/uL (1.8-7.7) 04/05/24 17:55 Lymph # (Auto) 1.2 10^3/uL (0.8-4.8) 04/05/24 17:55 Mccone # (Auto) 0.4 10^3/uL (0.2-0.9) 04/05/24 17:55 Eos # (Auto) 0.1 10^3/uL (0.0-0.8) 04/05/24 17:55 Baso # (Auto) 0.0 10^3/uL (0.0-0.1) 04/05/24 17:55 Nucleated RBC % (auto) 0 % 04/05/24 17:55 Nucleated RBCs # 0.0 /100WBC 04/05/24 17:55 Sodium 134 mmol/L (136-145) L 04/05/24 17:55 Potassium 4.4 mmol/L (3.5-5.1) 04/05/24 17:55 Chloride 98 mmol/L (98-107) 04/05/24 17:55 Carbon Dioxide 25 mmol/L (22-29) 04/05/24 17:55 Anion Gap 15.4 (5-19) 04/05/24 17:55 BUN 21 mg/dL (6-20) H 04/05/24 17:55 Creatinine 3.2 mg/dL (0.7-1.2) H 04/05/24 17:55 GFR Calculation 24.6 mL/min (90-130) L 04/05/24 17:55 Glucose 276 mg/dL (65-115) H 04/05/24 17:55 POC Glucose 186 mg/dL (70-110) H 04/05/24 18:28 Calculated Osmolality 291 mOsm/kg (285-295) 04/05/24 17:55 Calcium 9.1 mg/dL (8.5-10.5) 04/05/24 17:55 Total Bilirubin 0.2 mg/dL (0.15-1.2) 04/05/24 17:55 AST 21 U/L (0-40) 04/05/24 17:55 ALT 12 U/L (0-41) 04/05/24 17:55 Alkaline Phosphatase 87 U/L (40-130) 04/05/24 17:55 Creatine Kinase 104 U/L (39-308) 04/05/24 17:55 Troponin T Baseline 87 ng/L (0-15) H 04/05/24 17:55 Troponin T 120 Minute 84.26 ng/L (0-15) H 04/05/24 19:26 Delta Troponin T -2.74 ABS# (0-10) L 04/05/24 19:26 NT-Pro-B Natriuret Pep 25212 pg/mL (0-125) H 04/05/24 17:55 Total Protein 6.4 g/dL (6.6-8.7) L 04/05/24 17:55 Albumin 4.0 g/dL (3.5-5.2) 04/05/24 17:55 Globulin 2.4 g/dL (1.3-4.6) 04/05/24 17:55 Lipase 119 U/L (13-60) H 04/05/24 17:55 All radiology interpretation(s) finalized by discharge Discharge Plan Discharge Patient Disposition: Home Clinical Impression: Chest pain Condition: Stable Prescriptions: No Action isosorbide mononitrate 60 mg tablet extended release 24 hr 60 mg PO DAILY@09 (DME) OneTouch Ultra Test Strip See Rx Instructions .ROUTE .MEDSUPPLY Qty: 10 Rx Instructions: As directed (DME) pen needle, diabetic [TechLITE Pen Needle] 31 gauge x 5/16 needle See Rx Instructions .ROUTE .MEDSUPPLY Qty: 1200 Rx Instructions: As directed (DME) lancets [TRUEplus Lancets] 33 gauge misc See Rx Instructions .ROUTE .MEDSUPPLY Qty: 100 Rx Instructions: As directed hydrocodone-acetaminophen 7.5-325 mg tablet 1 tab PO Q6H PRN (Reason: Pain (Scale Score 7-10)) carvedilol 25 mg Tablet 25 mg PO BID@, Rx Instructions: must administer with a meal/food. Hold if systolic BP is below 90 or diastolic BP below 60. atorvastatin 10 mg Tablet 10 mg PO BEDTIME@21 carbamazepine 200 mg Tablet 200 mg PO TID@,, amlodipine 10 mg Tablet 10 mg PO DAILY@09 ferrous sulfate 325 mg (65 mg iron) Tablet 325 mg PO DAILY@09 benztropine 1 mg Tablet 1 mg PO BID@ acetaminophen [Tylenol] 325 mg Capsule 650 mg PO Q4H PRN (Reason: Pain) Hold Instructions: Resume on 02/03/24. multivitamin with folic acid [Daily-Sean (with folic acid)] 400 mcg tablet 1 tab PO DAILY@09 gabapentin 300 mg capsule 300 mg PO DAILY@09 trazodone 100 mg tablet 100 mg PO BEDTIME@21 aripiprazole 15 mg tablet 15 mg PO DAILY@09 insulin aspart U-100 [Novolog FlexPen U-100 Insulin] 100 unit/mL (3 mL) insulin pen See Rx Instructions .ROUTE .COMPLEX Rx Instructions: sliding scale subcutaneously tid Eucerin Cream 1 applic TOPICAL DAILY PRN (Reason: unknown) lurasidone [Latuda] 120 mg tablet 60 mg PO BID@ magnesium oxide 400 mg magnesium tablet 400 mg PO TID@,, naloxone [Narcan] 4 mg/actuation spray,non-aerosol 1 spray INTRANASAL PRN PRN (Reason: Opioid Reversal) hydralazine 25 mg tablet 25 mg PO QID metoclopramide HCl 10 mg tablet 10 mg PO Q8H PRN (Reason: Nausea) aspirin 325 mg tablet,delayed release (DR/EC) 325 mg PO DAILY fenofibrate 160 mg tablet 160 mg PO DAILY Discharge Orders: Discharge ED (Routine); Ordered 04/05/24 Ordered By: Bogdan Fernando Referrals: Ahsan Gilliam MD [Primary Care Provider] - 1-3 days Patient Instructions: Chest Pain (ED), Opioid Safety, Pain Management Activity Restrictions/Additional Instructions: No definite cause of chest pain was identified today. Return for increasing or worsening pain, shortness of breath, fever, cough, other new or concerning symptoms. See your doctor this week, as further outpatient testing may be warranted. Coding Level of Care Code ED Clinical Services Assistant for Maria R Garrison
--- NOTE | 2024-04-05 18:29 | PC.NURSE ---
Glucose via Fingerstick: 186
[2024-04-05 18:32] LABS: Glucose Point of Care 186 mg/dL (70-110)
[2024-04-05 18:39] LABS: Basophils % 0.6 %; Eosinophils # 0.1 10^3/uL (0.0-0.8); Eosinophils % 1.4 %; Hematocrit 32.1 % (37-53); Lymphocytes # 1.2 10^3/uL (0.8-4.8); Lymphocytes % 25.2 %; Mean Corpuscular HGB Conc 31.2 g/dL (30-55); Mean Corpuscular Hemoglobin 29.5 pg (27-33); Mean Corpuscular Volume 94.7 fl (82-101); Monocytes # 0.4 10^3/uL (0.2-0.9); Monocytes % 8.1 %; Neutrophils # 3.18 10^3/uL (1.8-7.7); Neutrophils % 64.5 %; Nucleated Red Blood Cells % 0 %; Platelet Count 264 10^3/cmm (157-399); Red Blood Count 3.39 10^6/uL (3.85-5.65); Red Cell Distribution Width 15.3 % (12.1-15.1); White Blood Count 4.93 10^3/uL (3.29-11.43)
[2024-04-05 18:51] LABS: Troponin(5th) Baseline 87 ng/L (0-15)
[2024-04-05 18:59] LABS: Alanine Aminotransferase 12 U/L (0-41); Alkaline Phosphatase 87 U/L (40-130); Anion Gap 15.4 (5-19); Aspartate Amino Transferase 21 U/L (0-40); Blood Urea Nitrogen 21 mg/dL (6-20); Calcium 9.1 mg/dL (8.5-10.5); Carbon Dioxide 25 mmol/L (22-29); Chloride 98 mmol/L (98-107); Creatine Phosphokinase 104 U/L (39-308); Creatinine Clr Calc Pharmacy 24.9766; Globulin 2.4 g/dL (1.3-4.6); Glomerular Filtration Rate 24.6 mL/min (90-130); Glucose 276 mg/dL (65-115); Lipase 119 U/L (13-60); NT Pro B Type Natriuretic Pept 22902 pg/mL (0-125); Osmolality Calculated 291 mOsm/kg (285-295); Potassium 4.4 mmol/L (3.5-5.1); Sodium 134 mmol/L (136-145); Total Bilirubin 0.2 mg/dL (0.15-1.2); Total Protein 6.4 g/dL (6.6-8.7)
--- NOTE | 2024-04-05 19:17 | XRR_ITS ---
PROCEDURE INFORMATION: Exam: XR Chest Exam date and time: 04/05/2024 7:27 PM Age: 53 years old Clinical indication: Chest pressure; Prior surgery; Surgery date: 6+ months; Surgery type: Dialysis cath; Patient HX: C/O chest pain. ; Additional info: Cp TECHNIQUE: Imaging protocol: Radiologic exam of the chest. Views: 1 view. COMPARISON: CR XR chest 1V portable [id number] 01/31/2024 12:23 PM FINDINGS: Tubes, catheters and devices: Dual lumen central venous catheter tip projects over the right atrium. Lungs: Unremarkable. No consolidation. Pleural spaces: Unremarkable. No pleural effusion. No pneumothorax. Heart/Mediastinum: Cardiomegaly. Bones/joints: Unremarkable. XR/XR chest 1V portable [id number] IMPRESSION: Cardiomegaly.
[2024-04-05 19:18] VITALS: BP 154/78; PULSE 88; RESP 18; O2SAT 99
[2024-04-05 19:30] VITALS: BP 159/81; PULSE 84; RESP 18; O2SAT 100
[2024-04-05 19:50] LABS: Troponin 5 2HR 84.26 ng/L (0-15)
[2024-04-05 20:03] LABS: Troponin 5 2HR Delta -2.74 ABS# (0-10)
--- NOTE | 2024-04-05 20:13 | ECG_ITS ---
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 Measurements Intervals [place] Rate: 81 P: 55 [place]: 193 QRS: -44 QRSD: 118 T: 173 QT: 394 QTc: 460 Interpretive Statements SINUS RHYTHM LEFT AXIS DEVIATION [QRS AXIS < -30] SEPTAL MYOCARDIAL INFARCTION , OF INDETERMINATE AGE [40+ ms Q WAVE IN V1/V2] POSSIBLE LATERAL MYOCARDIAL INFARCTION , OF INDETERMINATE AGE [30 ms Q WAVE IN I/aVL/V5/V6] Compared to ECG 01/25/2024 18:45:17 Myocardial infarct finding now present Intraventricular conduction delay no longer present Electronically Signed On 04-06-2024 19:29:06 CDT by Izaiah Reyna M.D. [id number]
[2024-04-05] MEDS: lidocaine 2% viscous 15 ML, aluminum-mag hydrox-simethicon 30 ML, sucralfate oral liq 1 GM PO (20:23)
== END 2024-04-05 20:29 | disposition home or self-care (01) ==
PROVIDERS: Emergency Provider Emergency Medicine; PCP Family Medicine
DX: R07.89 Other chest pain (principal); E11.22 Type 2 diabetes mellitus with diabetic chronic kidney disease; N18.6 End stage renal disease; E78.2 Mixed hyperlipidemia; D64.9 Anemia, unspecified; F17.210 Nicotine dependence, cigarettes, uncomplicated; Z79.899 Other long term (current) drug therapy; Z79.4 Long term (current) use of insulin; Z79.82 Long term (current) use of aspirin
CPT/HCPCS: 36416; 71045; 80053; 82550; 82962; 83690; 83880; 84484; 85025; 93005; 99285

== ENCOUNTER 2024-04-14 20:57 | Emergency (ER) | payer MEDICAID, SELFPAY ==
[2024-04-14] VITALS (29 sets, daily range): BP systolic 153–178; BP diastolic 79–90; PULSE 57–65; RESP 0–23; TEMP 36.4; O2SAT 100; BMI 21.2
--- NOTE | 2024-04-14 21:07 | XRR_ITS ---
PROCEDURE INFORMATION: Exam: XR Chest Exam date and time: 04/14/2024 9:27 PM Age: 53 years old Clinical indication: Pain; Chest pressure; Prior surgery; Surgery date: 6+ months; Surgery type: Dialysis cath; Additional info: Chest pain TECHNIQUE: Imaging protocol: Radiologic exam of the chest. Views: 1 view. COMPARISON: CR (CHEST, ) 04/05/2024 7:27 PM FINDINGS: Tubes, catheters and devices: Right sided central venous catheter with tip over the right atrium. Lungs: See Heart/Mediastinum finding. Pleural spaces: Unremarkable. No pleural effusion. No pneumothorax. Heart/Mediastinum: Cardiomegaly and mild pulmonary vascular congestion. Bones/joints: Unremarkable. XR/XR chest 1V portable [id number] IMPRESSION: 1. Right sided central venous catheter with tip over the right atrium. 2. Cardiomegaly and mild pulmonary vascular congestion.
--- NOTE | 2024-04-14 21:11 | ECG_ITS ---
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 Measurements Intervals [place] Rate: 55 P: 69 [place]: 207 QRS: -43 QRSD: 113 T: 264 QT: 478 QTc: 459 Interpretive Statements SINUS BRADYCARDIA LEFT AXIS DEVIATION [QRS AXIS < -30] LEFT VENTRICULAR HYPERTROPHY AND ST-T CHANGE [VOLTAGE CRITERIA PLUS ST/T ABNORMALITY] Compared to ECG 04/05/2024 20:13:23 Left ventricular hypertrophy now present ST (T wave) deviation now present Sinus rhythm no longer present Myocardial infarct finding no longer present Electronically Signed On 04-14-2024 23:21:20 CDT by Izaiah Reyna M.D. [email or web address])[id number]
--- NOTE | 2024-04-14 21:12 | ED_ITS ---
HPI - Chest Pain 2 General: Chief Complaint: Chest Pain Stated Complaint: CP Time Seen by Provider: 04/14/24 21:02 History of Present Illness: Patient presents to the ER with complaints of left-sided chest pain that started approximately 1 hour ago. Patient did say he skipped his dialysis today because he was not feeling good he is normally Sunday. Patient says this is his heart however his left-sided chest pain is reproducible to palpation. Patient denies any shortness of breath, nausea vomiting, diaphoresis Review of Systems 2 General: Reports: 10 or more systems reviewed and unremarkable except in HPI and below PFSH ED 2 PFSH: Medical History Hyperlipemia, mixed Acute renal failure Acute kidney injury superimposed on CKD Acute hyponatremia Hyponatremia Anemia Hypervolemia Tobacco abuse Diabetes Social History Smoking and tobacco/nicotine status: current every day tobacco/nicotine user Physical Exam 2 Const: COMMON NORMALS: no acute distress, average body habitus, patient oriented x3, no limitations, healthy appearing, alert and well nourished HENMT: COMMON NORMALS: normocephalic, atraumatic, hearing grossly normal bilaterally, external ears normal, Normal external nose present and moist oral mucous membranes HEAD & SCALP: normocephalic and atraumatic NOSE: Normal external nose present EXTERNAL EAR: Yes external ears normal Neck/C-Spine: COMMON NORMALS: no JVD Chest: COMMONS NORMALS: normal inspection of the chest; negative for normal palpation of entire chest wall (Reproduces patient's pain) Resp: COMMON NORMALS: normal respiratory effort, No retractions, No use of accessory muscles and clear to auscultation bilaterally AUSCULTATION: clear to auscultation bilaterally Cardio: COMMON NORMALS: no JVD, regular rate, regular rhythm, S1 normal heart sound present, S2 normal heart sound present, No gallops present (Cardio), No clicks present (Cardio), No murmurs present (Cardio) and No rub (Cardio) R ATE: regular rate RHYTHM: regular rhythm HEART SOUNDS: S1 normal heart sound present and S2 normal heart sound present GI: COMMON NORMALS: Normal to inspection, nondistended, normoactive bowel sounds present, Soft to palpation, non-tender, No hepatosplenomegaly present and no masses PALPATION: Yes Soft to palpation and Yes No hepatosplenomegaly present Neuro: COMMON NORMALS: patient oriented x3 SENSORIUM/ORIENTATION: Yes alert Course 2 Vital Signs: Vital signs: Vital Signs Temperature 97.6 F 04/14/24 21:05 Pulse Rate 59 L 04/14/24 23:50 Respiratory Rate 10 L 04/14/24 23:50 Blood Pressure 153/80 04/14/24 23:50 Pulse Oximetry 100 04/14/24 23:50 Oxygen Delivery Me thod Room Air 04/14/24 21:23 MDM - Chest Pain Medical Decision Making Patient presented with left-sided chest pain is reproducible with palpation, patient was worked up in standard chest pain fashion. Patient is initial troponin, echo 118 his 2-hour troponin, echo 113.9, patient is a dialysis patient. EKG does not show any acute changes. Patient be discharged home. Differential Diagnosis Unlikely acute massive pulmonary embolism, acute respiratory failure, acute myocardial infarction, cardiac arrest or sudden cardiac Medical Records I reviewed the patient's medical records. Lab Data I reviewed the patient's lab results. 04/14/24 21:27 04/14/24 21:27 Radiology Impressions Chest X-Ray 04/14/24 21:07 IMPRESSION: 1. Right sided central venous catheter with tip over the right atrium. 2. Cardiomegaly and mild pulmonary vascular congestion. Laboratory Results WBC 4.37 10^3/uL (3.29-11.43) 04/14/24 21: RBC 3.86 10^6/uL (3.85-5.65) 04/14/24 21: Hgb 11.40 g/dL (11.27-16.99) 04/14/24 21: Hct 35.1 % (37-53) L 04/14/24 21: MCV 90.9 fl (82-101) 04/14/24 21: MCH 29.5 pg (27-33) 04/14/24 21: MCHC 32.5 g/dL (30-55) 04/14/24 21: RDW 14.4 % (12.1-15.1) 04/14/24 21: Plt Count 263 10^3/cmm (157-399) 04/14/24 21: MPV 9.8 fL (7.4-10.4) 04/14/24 21: Neut % (Auto) 65.1 % 04/14/24 21: Lymph % (Auto) 26.1 % 04/14/24 21: [place] % (Auto) 5.9 % 04/14/24 21: Eos % (Auto) 1.8 % 04/14/24 21: Baso % (Auto) 0.9 % 04/14/24 21: Neut # (Auto) 2.84 10^3/uL (1.8-7.7) 04/14/24: Lymph # (Auto) 1.1 10^3/uL (0.8-4.8) 04/14/24: [place] # (Auto) 0.3 10^3/uL (0.2-0.9) 04/14/24: Eos # (Auto) 0.1 10^3/uL (0.0-0.8) 04/14/24: Baso # (Auto) 0.0 10^3/uL (0.0-0.1) 04/14/24: Nucleated RBC % (auto) 0 % 04/14/24: Nucleated RBCs # 0.0 /100WBC 04/14/24: Sodium 130 mmol/L (136-145) L 04/14/24 21: Potassium 4.5 mmol/L (3.5-5.1) 04/14/24: Chloride 95 mmol/L (98-107) L 04/14/24: Carbon Dioxide 22 mmol/L (22-29) 04/14/24 21: Anion Gap 17.5 (5-19) 04/14/24 21: BUN 36 mg/dL (6-20) H 04/14/24 21: Creatinine 4.3 mg/dL (0.7-1.2) H 04/14/24 21: GFR Calculation 17.5 mL/min (90-130) L 04/14/24: Glucose 154 mg/dL (65-115) H 04/14/24 21: Calculated Osmolality 281 mOsm/kg (285-295) L 04/14/24 21:27 Calcium 9.0 mg/dL (8.5-10.5) 04/14/24 21: Phosphorus 3.9 mg/dL (2.5-4.5) 04/14/24 21: Magnesium 1.7 mg/dL (1.7-2.3) 04/14/24 21: Total Bilirubin 0.3 mg/dL (0.15-1.2) 04/14/24 21:27 AST 20 U/L (0-40) 04/14/24 21: ALT 11 U/L (0-41) 04/14/24 21: Alkaline Phosphatase 94 U/L (40-130) 04/14/24 21:27 Troponin T Baseline 118 ng/L (0-15) H* 04/14/24 21: Troponin T 120 Minute 113.9 ng/L (0-15) H 04/14/24 23:10 Delta Troponin T -4.1 ABS# (0-10) L 04/14/24 23:10 Total Protein 6.8 g/dL (6.6-8.7) 04/14/24 21: Albumin 4.2 g/dL (3.5-5.2) 04/14/24 21: Globulin 2.6 g/dL (1.3-4.6) 04/14/24 21:27 All radiology interpretation(s) finalized by discharge EKG Data EKG 1: I personally reviewed and interpreted this EKG as follows: EKG interpretation date: 04/14/24 EKG interpretation time: 21:11 Interpretation: Ventricular rate 55 bpm, LA interval 207, QRS duration 113, QTc of 467, sinus bradycardia EKG 2: I personally reviewed and interpreted this EKG as follows: EKG interpretation date: 04/14/24 EKG interpretation time: 23:49 Interpretation: Ventricular rate 59 bpm, LA interval 202, QRS duration 114, QTc of 469, sinus bradycardia Discharge Plan Discharge Patient Disposition: Home Clinical Impression: Chest pain Qualifiers: Chest pain type: unspecified Qualified Code(s): R07.9 - Chest pain, unspecified Condition: Stable Prescriptions: No Action isosorbide mononitrate 60 mg tablet extended release 24 hr 60 mg PO DAILY@09 (DME) [employer] Ultra Test Strip See Rx Instructions .ROUTE .MEDSUPPLY Qty: 10 Rx Instructions: As directed (DME) pen needle, diabetic [TechLITE Pen Needle] 31 gauge x 5/16 needle See Rx Instructions .ROUTE .MEDSUPPLY Qty: 1200 Rx Instructions: As directed (DME) lancets [TRUEplus Lancets] 33 gauge misc See Rx Instructions .ROUTE .MEDSUPPLY Qty: 100 Rx Instructions: As directed hydrocodone-acetaminophen 7.5-325 mg tablet 1 tab PO Q6H PRN (Reason: Pain (Scale Score 7-10)) carvedilol 25 mg Tablet 25 mg PO BID@, Rx Instructions: must administer with a meal/food. Hold if systolic BP is below 90 or diastolic BP below 60. atorvastatin 10 mg Tablet 10 mg PO BEDTIME@21 carbamazepine 200 mg Tablet 200 mg PO TID@,, amlodipine 10 mg Tablet 10 mg PO DAILY@09 ferrous sulfate 325 mg (65 mg iron) Tablet 325 mg PO DAILY@09 benztropine 1 mg Tablet 1 mg PO BID@, acetaminophen [Tylenol] 325 mg Capsule 650 mg PO Q4H PRN (Reason: Pain) Hold Instructions: Resume on 02/03/24. multivitamin with folic acid [Daily-Sean (with folic acid)] 400 mcg tablet 1 tab PO DAILY@09 gabapentin 300 mg capsule 300 mg PO DAILY@09 trazodone 100 mg tablet 100 mg PO BEDTIME@21 aripiprazole 15 mg tablet 15 mg PO DAILY@09 insulin aspart U-100 [Novolog FlexPen U-100 Insulin] 100 unit/mL (3 mL) insulin pen See Rx Instructions .ROUTE .COMPLEX Rx Instructions: sliding scale subcutaneously tid Eucerin Cream 1 applic TOPICAL DAILY PRN (Reason: unknown) lurasidone [Latuda] 120 mg tablet 60 mg PO BID@, magnesium oxide 400 mg magnesium tablet 400 mg PO TID@,, naloxone [Narcan] 4 mg/actuation spray,non-aerosol 1 spray INTRANASAL PRN PRN (Reason: Opioid Reversal) hydralazine 25 mg tablet 25 mg PO QID metoclopramide HCl 10 mg tablet 10 mg PO Q8H PRN (Reason: Nausea) aspirin 325 mg tablet,delayed release (DR/EC) 325 mg PO DAILY fenofibrate 160 mg tablet 160 mg PO DAILY Discharge Orders: Discharge ED (Routine); Ordered 04/14/24 Ordered By: Heladio Atnhony Referrals: Ahsan Gilliam MD [Primary Care Provider] - 1 week Patient Instructions: Chest Pain (ED) Activity Restrictions/Additional Instructions: Your evaluated in the ER for your chest pain by physical exam, lab work, and EKGs all of which were essentially benign. It did not show acute cause for your chest pain. You will be discharged from the ER and please follow-up with your PCP within the next 7 days for further evaluation and treatment. If your chest pain returns or worsens please feel free to return to the ER. Coding Level of Care Code ED Social Services Counselor for Maria R Garrison
[2024-04-14 21:40] LABS: Basophils % 0.9 %; Eosinophils # 0.1 10^3/uL (0.0-0.8); Eosinophils % 1.8 %; Hematocrit 35.1 % (37-53); Lymphocytes # 1.1 10^3/uL (0.8-4.8); Lymphocytes % 26.1 %; Mean Corpuscular HGB Conc 32.5 g/dL (30-55); Mean Corpuscular Hemoglobin 29.5 pg (27-33); Mean Corpuscular Volume 90.9 fl (82-101); Mean Platelet Volume 9.8 fL (7.4-10.4); Monocytes # 0.3 10^3/uL (0.2-0.9); Monocytes % 5.9 %; Neutrophils # 2.84 10^3/uL (1.8-7.7); Neutrophils % 65.1 %; Nucleated Red Blood Cells % 0 %; Platelet Count 263 10^3/cmm (157-399); Red Blood Count 3.86 10^6/uL (3.85-5.65); Red Cell Distribution Width 14.4 % (12.1-15.1); White Blood Count 4.37 10^3/uL (3.29-11.43)
[2024-04-14 22:00] LABS: Alanine Aminotransferase 11 U/L (0-41); Albumin Level 4.2 g/dL (3.5-5.2); Alkaline Phosphatase 94 U/L (40-130); Anion Gap 17.5 (5-19); Aspartate Amino Transferase 20 U/L (0-40); Blood Urea Nitrogen 36 mg/dL (6-20); Carbon Dioxide 22 mmol/L (22-29); Chloride 95 mmol/L (98-107); Creatinine Clr Calc Pharmacy 19.0408; Globulin 2.6 g/dL (1.3-4.6); Glomerular Filtration Rate 17.5 mL/min (90-130); Glucose 154 mg/dL (65-115); Magnesium 1.7 mg/dL (1.7-2.3); Osmolality Calculated 281 mOsm/kg (285-295); Phosphorus 3.9 mg/dL (2.5-4.5); Potassium 4.5 mmol/L (3.5-5.1); Sodium 130 mmol/L (136-145); Total Bilirubin 0.3 mg/dL (0.15-1.2); Total Protein 6.8 g/dL (6.6-8.7); Troponin(5th) Baseline 118 ng/L (0-15)
--- NOTE | 2024-04-14 23:08 | ECG_ITS ---
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 Measurements Intervals [place] Rate: 59 P: 58 [place]: 202 QRS: -53 QRSD: 114 T: 232 QT: 469 QTc: 468 Interpretive Statements SINUS BRADYCARDIA PATTERN CONSISTENT WITH PULMONARY DISEASE LEFT ANTERIOR FASCICULAR BLOCK [QRS AXIS <= -45, QR IN I, RS IN II] LEFT VENTRICULAR HYPERTROPHY AND ST-T CHANGE [VOLTAGE CRITERIA PLUS ST/T ABNORMALITY] Compared to ECG 04/14/2024 21:11:36 Left anterior fascicular block now present Left-axis deviation no longer present ST (T wave) deviation still present Electronically Signed On 04-15-2024 21:34:24 CDT by Yovanny Pinon M.D. [id number]
[2024-04-14 23:42] LABS: Troponin 5 2HR Delta -4.1 ABS# (0-10)
[2024-04-14 23:43] LABS: Troponin 5 2HR 113.9 ng/L (0-15)
== END 2024-04-15 00:12 | disposition home or self-care (01) ==
PROVIDERS: Emergency Provider Emergency Medicine; PCP Family Medicine
DX: R07.9 Chest pain, unspecified (principal); R00.1 Bradycardia, unspecified; Z79.82 Long term (current) use of aspirin; Z79.4 Long term (current) use of insulin; E78.2 Mixed hyperlipidemia; E11.22 Type 2 diabetes mellitus with diabetic chronic kidney disease; N18.9 Chronic kidney disease, unspecified; Z72.0 Tobacco use
CPT/HCPCS: 71045; 80053; 83735; 84100; 84484; 85025; 93005; 99285

== ENCOUNTER 2024-04-25 22:38 | Emergency (ER) | payer MEDICAID, SELFPAY ==
[2024-04-25 22:40] VITALS: BP 140/73; PULSE 69; RESP 20; TEMP 37.2; O2SAT 98; BMI 25.1
[2024-04-25 22:45] VITALS: BP 140/73; PULSE 73; RESP 18; O2SAT 98
[2024-04-25 23:05] VITALS: BP 160/77; PULSE 71; RESP 18; O2SAT 98
[2024-04-25 23:14] LABS: Glucose Point of Care 69 mg/dL (70-110)
[2024-04-25 23:35] VITALS: BP 160/77; PULSE 70; RESP 16; O2SAT 98
--- NOTE | 2024-04-26 00:05 | ED_ITS ---
HPI - Wound/Laceration General: Chief Complaint: Wound/Laceration Stated Complaint: PORT PAIN Time Seen by Provider: 04/25/24 22:43 History of Present Illness: 53-year-old male patient with a history of mental disability. He is on dialysis, and had a graft placed in the left upper extremity yesterday. His complaint is pain to his left upper extremity. He also has noted his blood sugar to be low, and has some mild mental status changes associated with that. On my examination, he is improved, and asking to go home, although he states that he needs something to eat to keep his blood sugar up, as it is 69. PFSH ED PFSH: Medical History Hyperlipemia, mixed Acute renal failure Acute kidney injury superimposed on CKD Acute hyponatremia Hyponatremia Anemia Hypervolemia Tobacco abuse Diabetes Social History Smoking and tobacco/nicotine status: current every day tobacco/nicotine user Physical Exam Const: COMMON NORMALS: no acute distress GENERAL APPEARANCE: cooperative HENMT: COMMON NORMALS: normocephalic, atraumatic and Normal external nose present HEAD & SCALP: normocephalic and atraumatic FACE & SINUS: normal facial exam and face symmetric NOSE: Normal external nose present Eye: COMMON NORMALS: Equal, round and reactive pupils present and EOMs intact bilaterally PUPIL: Yes Equal, round and reactive pupils present Neck/C-Spine: GENERAL: Yes trachea midline Chest: CHEST: Yes Symmetrical chest wall rise Resp: COMMON NORMALS: normal respiratory effort, No retractions, No use of accessory muscles and clear to auscultation bilaterally AUSCULTATION: clear to auscultation bilaterally Cardio: COMMON NORMALS: regular rate and regular rhythm RATE: regular rate RHYTHM: regular rhythm GI: COMMON NORMALS: Normal to inspection, nondistended, normoactive bowel sounds present Extremity: COMMON NORMALS: no pedal edema Neuro: SENSORY EXAM: Yes extremities (intact) Psych: COMMON NORMALS: speech normal SPEECH: Yes normal speech Skin: COMMON NORMALS: no rashes or lesions noted GENERAL SKIN EXAM: no rashes or lesions noted Course Vital Signs: Vital signs: Vital Signs Temperature 98.9 F 04/25/24 22:40 Pulse Rate 70 04/25/24 23:35 Respiratory Rate 16 04/26/24 00:12 Blood Pressure 160/77 04/25/24 23:35 Pulse Oximetry 98 04/25/24 23:35 Oxygen Delivery Me thod Room Air 04/25/24 23:35 MDM - Wound/Laceration Medical Decision Making Symptomatic hypoglycemia. Blood sugar 69 on arrival. He was given an oral challenge, with good result. Blood sugar is up to 113. The patient is asking to go home. He is no longer complaining of left arm pain after 1 pain pill here. He will be discharged, to outpatient follow-up. Lab Data Laboratory Results POC Glucose 113 mg/dL (70-110) H 04/26/24 00:08 No radiology studies performed this visit Discharge Plan Discharge Patient Disposition: Home Clinical Impression: Hypoglycemia Condition: Stable Prescriptions: No Action isosorbide mononitrate 60 mg tablet extended release 24 hr 60 mg PO DAILY@09 (DME) OneTouch Ultra Test Strip See Rx Instructions .ROUTE .MEDSUPPLY Qty: 10 Rx Instructions: As directed (DME) pen needle, diabetic [TechLITE Pen Needle] 31 gauge x 5/16 needle See Rx Instructions .ROUTE .MEDSUPPLY Qty: 1200 Rx Instructions: As directed (DME) lancets [TRUEplus Lancets] 33 gauge misc See Rx Instructions .ROUTE .MEDSUPPLY Qty: 100 Rx Instructions: As directed hydrocodone-acetaminophen 7.5-325 mg tablet 1 tab PO Q6H PRN (Reason: Pain (Scale Score 7-10)) carvedilol 25 mg Tablet 25 mg PO BID@, Rx Instructions: must administer with a meal/food. Hold if systolic BP is below 90 or diastolic BP below 60. atorvastatin 10 mg Tablet 10 mg PO BEDTIME@21 carbamazepine 200 mg Tablet 200 mg PO TID@,,21 amlodipine 10 mg Tablet 10 mg PO DAILY@09 ferrous sulfate 325 mg (65 mg iron) Tablet 325 mg PO DAILY@09 benztropine 1 mg Tablet 1 mg PO BID@, acetaminophen [Tylenol] 325 mg Capsule 650 mg PO Q4H PRN (Reason: Pain) Hold Instructions: Resume on 02/03/24. multivitamin with folic acid [Daily-Sean (with folic acid)] 400 mcg tablet 1 tab PO DAILY@09 gabapentin 300 mg capsule 300 mg PO DAILY@09 trazodone 100 mg tablet 100 mg PO BEDTIME@21 aripiprazole 15 mg tablet 15 mg PO DAILY@09 insulin aspart U-100 [Novolog FlexPen U-100 Insulin] 100 unit/mL (3 mL) insulin pen See Rx Instructions .ROUTE .COMPLEX Rx Instructions: sliding scale subcutaneously tid Eucerin Cream 1 applic TOPICAL DAILY PRN (Reason: unknown) lurasidone [Latuda] 120 mg tablet 60 mg PO BID@, magnesium oxide 400 mg magnesium tablet 400 mg PO TID@,,21 naloxone [Narcan] 4 mg/actuation spray,non-aerosol 1 spray INTRANASAL PRN PRN (Reason: Opioid Reversal) hydralazine 25 mg tablet 25 mg PO QID metoclopramide HCl 10 mg tablet 10 mg PO Q8H PRN (Reason: Nausea) aspirin 325 mg tablet,delayed release (DR/EC) 325 mg PO DAILY fenofibrate 160 mg tablet 160 mg PO DAILY Discharge Orders: Discharge ED (Routine); Ordered 04/26/24 Ordered By: Bogdan Fernando Referrals: Ahsan Gilliam MD [Primary Care Provider] - 1-3 days Patient Instructions: Hypoglycemia in a Person with Diabetes (ED), Opioid Safety, Pain Management Coding Level of Care Code ED Lead Application Architect for [facility]
[2024-04-26 00:12] VITALS: RESP 16
[2024-04-26 00:12] LABS: Glucose Point of Care 113 mg/dL (70-110)
[2024-04-26] MEDS: oxyCODONE-APAP 5-325 mg Tablet 1 TAB PO (00:12)
[2024-04-26] MEDS: trazodone 100 mg Tablet PO (00:13)
[2024-04-26 00:53] VITALS: BP 160/77; PULSE 80; RESP 16; O2SAT 99
[2024-04-26 00:54] VITALS: BP 160/77; PULSE 80; RESP 16; TEMP 37.2; O2SAT 99
== END 2024-04-26 00:55 | disposition home or self-care (01) ==
PROVIDERS: Emergency Provider Emergency Medicine; PCP Family Medicine
DX: E11.649 Type 2 diabetes mellitus with hypoglycemia without coma (principal); Z79.82 Long term (current) use of aspirin; Z79.4 Long term (current) use of insulin; E78.2 Mixed hyperlipidemia; E11.22 Type 2 diabetes mellitus with diabetic chronic kidney disease; N18.9 Chronic kidney disease, unspecified; Z72.0 Tobacco use; Z99.2 Dependence on renal dialysis
CPT/HCPCS: 36416; 82962; 99283

== ENCOUNTER 2024-04-29 18:19 | Emergency (ER) | payer MEDICAID, SELFPAY ==
--- NOTE | 2024-04-29 18:22 | XRR_ITS ---
PROCEDURE INFORMATION: Exam: XR Chest Exam date and time: 04/29/2024 6:25 PM Age: 53 years old Clinical indication: Other: Weakness; Prior surgery; Surgery date: 6+ months; Surgery type: Dialysis cath TECHNIQUE: Imaging protocol: Radiologic exam of the chest. Views: 1 view. COMPARISON: CR (CHEST, ) 04/14/2024 9:27 PM FINDINGS: Tubes, catheters and devices: Right-sided dialysis catheter tip overlies the right atrium. Lungs: Central vascular prominence without overt edema. Pleural spaces: Unremarkable. No pleural effusion. No pneumothorax. Heart/Mediastinum: Cardiomegaly. Bones/joints: Unremarkable. XR/XR chest 1V portable [id number] IMPRESSION: Cardiomegaly and vascular congestion without pulmonary edema.
--- NOTE | 2024-04-29 18:22 | ECG_ITS ---
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 Measurements Intervals [place] Rate: 82 P: 63 NJ: 203 QRS: -40 QRSD: 118 T: -48 QT: 375 QTc: 440 Interpretive Statements SINUS RHYTHM LEFT AXIS DEVIATION [QRS AXIS < -30] LEFT VENTRICULAR HYPERTROPHY AND ST-T CHANGE [VOLTAGE CRITERIA PLUS ST/T ABNORMALITY] POSSIBLE SEPTAL MYOCARDIAL INFARCTION , OF INDETERMINATE AGE [30 ms Q WAVE IN V1/V2] Compared to ECG 04/14/2024 23:49:33 Left-axis deviation now present Myocardial infarct finding now present Sinus bradycardia no longer present Left anterior fascicular block no longer present ST (T wave) deviation still present Electronically Signed On 04-30-2024 6:27:17 CDT by Yovanny Pinon M.D. [email or web address]
[2024-04-29 18:24] VITALS: BP 193/90; PULSE 89; TEMP 36.8; O2SAT 100
--- NOTE | 2024-04-29 18:34 | W.ED.AMS ---
HPI - Altered Mental Status General: Chief Complaint: Altered Mental Status Stated Complaint: AMS, SI Time Seen by Provider: 04/29/24 18:20 History of Present Illness: 53-year-old man with a history of mental disability and end-stage renal disease on dialysis, diabetes and hyperlipidemia who presents the emergency room by ambulance with behavioral disturbance. Apparently he became more aggressive than usual with his caregiver at the detention he came from. He said he does not normally act like this. According to police who had been called he asked them to give him their gun so he could kill himself. Review of Systems General: Reports: ROS unobtainable due to medical condition Narrative: Constitutional symptoms: Negative except as documented in HPI. Skin symptoms: Negative except as documented in HPI. Eye symptoms: Negative except as documented in HPI. ENMT symptoms: Negative except as documented in HPI. Respiratory symptoms: Negative except as documented in HPI. Cardiovascular symptoms: Negative except as documented in HPI. Gastrointestinal symptoms: Negative except as documented in HPI. Genitourinary symptoms: Negative except as documented in HPI. Musculoskeletal symptoms: Negative except as documented in HPI. Neurologic symptoms: Negative except as documented in HPI. Psychiatric symptoms: Negative except as documented in HPI. Endocrine symptoms: Negative except as documented in HPI. [facility] ED PFSH: Medical History Hyperlipemia, mixed Acute renal failure Acute kidney injury superimposed on CKD Acute hyponatremia Hyponatremia Anemia Hypervolemia Tobacco abuse Diabetes Social History Smoking and tobacco/nicotine status: current every day tobacco/nicotine user Physical Exam Narrative: General: Alert, no acute distress. Skin: Warm, dry. Head: Normocephalic, atraumatic. Neck: Supple, trachea midline. Eye: Extraocular movements are intact. Ears, nose, mouth and throat: mucosa moist. Cardiovascular: Regular, Normal peripheral perfusion. Respiratory: Lungs are clear to auscultation, respirations are non-labored, breath sounds are equal, Symmetrical chest wall expansion. Gastrointestinal: Soft, Nontender, Non distended Musculoskeletal: Normal ROM, no deformity. Neurological: Alert and oriented, No focal neurological deficit observed. Psychiatric: Patient seems somewhat agitated on presentation. Course Vital Signs: Vital signs: Vital Signs Temperature 98.2 F 04/29/24 18:24 Pulse Rate 89 04/29/24 18:24 Blood Pressure 193/90 04/29/24 18:24 Pulse Oximetry 100 04/29/24 18:24 Oxygen Delivery Me thod Room Air 04/29/24 18:24 MDM - Altered Mental Status Medical Decision Making Medical decision making: Differential diagnosis including but not limited to and based on the above HPI, review of systems and physical exam: In this patient with altered mental status: Stroke. Hypoglycemia. Metabolic encephalopathy. Infections such as pneumonia, urinary tract infection, Covid-19, Influenza. Electrolyte abnormalities such as hypernatremia. Renal failure / uremia. Hepatic encephalopathy. Hypoxemia. Hypercapnic respiratory failure. Psychosis. Drug or alcohol intoxication. Medication overdose. Orders placed to evaluate differential diagnosis based on the above differential, HPI and physical exam Chest x-ray: Mild cardiomegaly, mild vascular congestion. No pulmonary edema. No infiltrates.. This was reviewed and interpreted by myself the ER physician. EKG: Time 1840. Rate 82. Normal sinus rhythm, No ST-T changes, no ectopy, normal NV & QRS intervals, This was reviewed and interpreted by myself the ER physician at 1845 Lab Review: Laboratory results were reviewed and interpreted by myself the emergency room physician. BUN and creatinine are 15 and 3 which would be expected in this dialysis patient. No leukocytosis. Glucose is 145. He does have a significant urinary tract infection greater than 100 whites with 3+ leukocyte esterase. Likely an E. coli urinary tract infection. I reviewed the patient's medical record. Reexamination: Patient remained stable. He denies any suicidal or homicidal ideation. No increased work of breathing. No focal motor deficits. Consultation: I spoke with Dr. Zamorano who is on-call for psychiatry. He agrees that in this patient with mental disability and an infection that he does not warrant inpatient psychiatric care and the patient has 24-hour caregivers and really no means to harm himself. He agrees that this patient after receiving antibiotic therapy should be safe to go home. Assessment and plan: Urinary tract infection Metabolic encephalopathy Agitation ?Patient's agitation seems to have improved. He is given IM Rocephin here in the emergency room. - Discharged home - Discussed plan with patient. Answered any questions. - Evaluation and treatment of this problem were appropriate in the emergency setting. Lab Data 04/29/24 18:35 04/29/24 18:35 Radiology Impressions Chest X-Ray 04/29/24 18:22 IMPRESSION: Cardiomegaly and vascular congestion without pulmonary edema. Laboratory Results WBC 6.46 10^3/uL (3.29-11.43) 04/29/24 18:35 RBC 3.89 10^6/uL (3.85-5.65) 04/29/24 18:35 Hgb 11.40 g/dL (11.27-16.99) 04/29/24 18:35 Hct 36.4 % (37-53) L 04/29/24 18:35 MCV 93.6 fl (82-101) 04/29/24 18:35 MCH 29.3 pg (27-33) 04/29/24 18:35 MCHC 31.3 g/dL (30-55) 04/29/24 18:35 RDW 14.2 % (12.1-15.1) 04/29/24 18:35 Plt Count 236 10^3/cmm (157-399) 04/29/24 18:35 MPV 9.9 fL (7.4-10.4) 04/29/24 18:35 Neut % (Auto) 64.1 % 04/29/24 18:35 Lymph % (Auto) 24.1 % 04/29/24 18:35 [place] % (Auto) 10.1 % 04/29/24 18:35 Eos % (Auto) 0.8 % 04/29/24 18:35 Baso % (Auto) 0.6 % 04/29/24 18:35 Neut # (Auto) 4.14 10^3/uL (1.8-7.7) 04/29/24 18:35 Lymph # (Auto) 1.6 10^3/uL (0.8-4.8) 04/29/24 18:35 [place] # (Auto) 0.7 10^3/uL (0.2-0.9) 04/29/24 18:35 Eos # (Auto) 0.1 10^3/uL (0.0-0.8) 04/29/24 18:35 Baso # (Auto) 0.0 10^3/uL (0.0-0.1) 04/29/24 18:35 Nucleated RBC % (auto) 0 % 04/29/24 18:35 Nucleated RBCs # 0.0 /100WBC 04/29/24 18:35 Sodium 131 mmol/L (136-145) L 04/29/24 18:35 Potassium 4.7 mmol/L (3.5-5.1) 04/29/24 18:35 Chloride 96 mmol/L (98-107) L 04/29/24 18:35 Carbon Dioxide 22 mmol/L (22-29) 04/29/24 18:35 Anion Gap 17.7 (5-19) 04/29/24 18:35 BUN 15 mg/dL (6-20) 04/29/24 18:35 Creatinine 3.0 mg/dL (0.7-1.2) H 04/29/24 18:35 GFR Calculation 26.5 mL/min (90-130) L 04/29/24 18:35 Glucose 145 mg/dL (65-115) H 04/29/24 18:35 Calculated Osmolality 275 mOsm/kg (285-295) L 04/29/24 18:35 Lactic Acid 1.2 mmol/L (0.5-2.2) 04/29/24 18:35 Calcium 9.2 mg/dL (8.5-10.5) 04/29/24 18:35 Phosphorus 1.9 mg/dL (2.5-4.5) L 04/29/24 18:35 Magnesium 2.0 mg/dL (1.7-2.3) 04/29/24 18:35 Total Bilirubin 0.3 mg/dL (0.15-1.2) 04/29/24 18:35 AST 19 U/L (0-40) 04/29/24 18:35 ALT < 5 U/L (0-41) 04/29/24 18:35 Alkaline Phosphatase 75 U/L (40-130) 04/29/24 18:35 C-Reactive Protein 23.6 mg/L (0.0-4.9) H 04/29/24 18:35 Total Protein 6.9 g/dL (6.6-8.7) 04/29/24 18:35 Albumin 3.9 g/dL (3.5-5.2) 04/29/24 18:35 Globulin 3.0 g/dL (1.3-4.6) 04/29/24 18:35 Urine Color Yellow (Yellow) 04/29/24 19:15 Urine Appearance Cloudy (CLEAR) A 04/29/24 19:15 Urine pH 8.0 (5-7) A 04/29/24 19:15 Ur Specific [place] 1.005 (1.005-1.030) 04/29/24 19:15 Urine Protein 3+ (Negative) A 04/29/24 19:15 Urine Glucose (UA) Negative (Normal) 04/29/24 19:15 Urine Ketones Negative (Negative) 04/29/24 19:15 Urine Blood Trace (Negative) A 04/29/24 19:15 Urine Nitrate Negative (Negative) 04/29/24 19:15 Urine Bilirubin Negative (Negative) 04/29/24 19:15 Urine Urobilinogen 0.2 mg/dL (Negative) 04/29/24 19:15 Ur Leukocyte Esterase 3+ (Negative) H 04/29/24 19:15 Urine RBC 0-2 /hpf (0-2) 04/29/24 19:15 Urine WBC >100 /hpf (0-5) 04/29/24 19:15 Ur Squamous Epith Cells 0-5 /hpf (0-5) 04/29/24 19:15 Amorphous Sediment Not Reportable 04/29/24 19:15 Urine Bacteria Exceeds /hpf (NONE) 04/29/24 19:15 Hyaline Casts 0.81 /lpf 04/29/24 19:15 Acetaminophen < 5.0 ug/mL (10-30) L 04/29/24 18:35 Ethyl Alcohol < 10 mg/dL (0-10) 04/29/24 18:35 All radiology interpretation(s) finalized by discharge Discharge Plan Discharge Patient Disposition: Home Clinical Impression: Urinary tract infection, Acute metabolic encephalopathy, Mentally disabled, End stage renal disease on dialysis Condition: Stable Prescriptions: New cephalexin 500 mg capsule 500 mg PO BID 7 Days Qty: 14 0RF No Action isosorbide mononitrate 60 mg tablet extended release 24 hr 60 mg PO DAILY@09 (DME) OneTouch Ultra Test Strip See Rx Instructions .ROUTE .MEDSUPPLY Qty: 10 Rx Instructions: As directed (DME) pen needle, diabetic [TechLITE Pen Needle] 31 gauge x 5/16 needle See Rx Instructions .ROUTE .MEDSUPPLY Qty: 1200 Rx Instructions: As directed (DME) lancets [TRUEplus Lancets] 33 gauge misc See Rx Instructions .ROUTE .MEDSUPPLY Qty: 100 Rx Instructions: As directed hydrocodone-acetaminophen 7.5-325 mg tablet 1 tab PO Q6H PRN (Reason: Pain (Scale Score 7-10)) carvedilol 25 mg Tablet 25 mg PO BID@, Rx Instructions: must administer with a meal/food. Hold if systolic BP is below 90 or diastolic BP below 60. atorvastatin 10 mg Tablet 10 mg PO BEDTIME@21 carbamazepine 200 mg Tablet 200 mg PO TID@,, amlodipine 10 mg Tablet 10 mg PO DAILY@09 ferrous sulfate 325 mg (65 mg iron) Tablet 325 mg PO DAILY@09 benztropine 1 mg Tablet 1 mg PO BID@, acetaminophen [Tylenol] 325 mg Capsule 650 mg PO Q4H PRN (Reason: Pain) Hold Instructions: Resume on 02/03/24. multivitamin with folic acid [Daily-Sean (with folic acid)] 400 mcg tablet 1 tab PO DAILY@09 gabapentin 300 mg capsule 300 mg PO DAILY@09 trazodone 100 mg tablet 100 mg PO BEDTIME@21 aripiprazole 15 mg tablet 15 mg PO DAILY@09 insulin aspart U-100 [Novolog FlexPen U-100 Insulin] 100 unit/mL (3 mL) insulin pen See Rx Instructions .ROUTE .COMPLEX Rx Instructions: sliding scale subcutaneously tid Eucerin Cream 1 applic TOPICAL DAILY PRN (Reason: unknown) lurasidone [Latuda] 120 mg tablet 60 mg PO BID@, magnesium oxide 400 mg magnesium tablet 400 mg PO TID@,, naloxone [Narcan] 4 mg/actuation spray,non-aerosol 1 spray INTRANASAL PRN PRN (Reason: Opioid Reversal) hydralazine 25 mg tablet 25 mg PO QID metoclopramide HCl 10 mg tablet 10 mg PO Q8H PRN (Reason: Nausea) aspirin 325 mg tablet,delayed release (DR/EC) 325 mg PO DAILY fenofibrate 160 mg tablet 160 mg PO DAILY Discharge Orders: Discharge ED (Routine); Ordered 04/29/24 Ordered By: sEtephanie Molina Referrals: Ahsan Gilliam MD [Primary Care Provider] - Discharge Diet: Usual diet Discharge Activity: Increase activity as tolerated Patient Instructions: Urinary Tract Infection in Men (ED), Altered Mental Status (ED), Opioid Safety, Pain Management Activity Restrictions/Additional Instructions: Thank you for choosing [facility] for your healthcare needs today. Please realize this is an emergency room and that we are providing you with a medical screening exam and this may not be complete and all inclusive of all the testing and or work up that you may need to determine your ailment or severity of your illness. You have been screened and evaluated and felt safe for discharge. Health conditions do change or evolve sometimes and as such it is important that you follow up with your Primary Doctor to be re checked, 3-5 days is a general good time frame for follow up. You are always welcome to return to the ED for re assessment if your symptoms are worsening or you have new concerns Coding Level of Care Code ED Operations Program Manager for [facility]
[2024-04-29 18:46] LABS: Basophils % 0.6 %; Eosinophils # 0.1 10^3/uL (0.0-0.8); Eosinophils % 0.8 %; Hematocrit 36.4 % (37-53); Lymphocytes # 1.6 10^3/uL (0.8-4.8); Lymphocytes % 24.1 %; Mean Corpuscular HGB Conc 31.3 g/dL (30-55); Mean Corpuscular Hemoglobin 29.3 pg (27-33); Mean Corpuscular Volume 93.6 fl (82-101); Mean Platelet Volume 9.9 fL (7.4-10.4); Monocytes # 0.7 10^3/uL (0.2-0.9); Monocytes % 10.1 %; Neutrophils # 4.14 10^3/uL (1.8-7.7); Neutrophils % 64.1 %; Nucleated Red Blood Cells % 0 %; Platelet Count 236 10^3/cmm (157-399); Red Blood Count 3.89 10^6/uL (3.85-5.65); Red Cell Distribution Width 14.2 % (12.1-15.1); White Blood Count 6.46 10^3/uL (3.29-11.43)
[2024-04-29 19:05] LABS: Alanine Aminotransferase < 5 U/L (0-41); Albumin Level 3.9 g/dL (3.5-5.2); Alkaline Phosphatase 75 U/L (40-130); Aspartate Amino Transferase 19 U/L (0-40); Blood Urea Nitrogen 15 mg/dL (6-20); C Reactive Protein 23.6 mg/L (0.0-4.9); Calcium 9.2 mg/dL (8.5-10.5); Carbon Dioxide 22 mmol/L (22-29); Chloride 96 mmol/L (98-107); Glomerular Filtration Rate 26.5 mL/min (90-130); Glucose 145 mg/dL (65-115); Osmolality Calculated 275 mOsm/kg (285-295); Phosphorus 1.9 mg/dL (2.5-4.5); Sodium 131 mmol/L (136-145); Total Bilirubin 0.3 mg/dL (0.15-1.2); Total Protein 6.9 g/dL (6.6-8.7)
[2024-04-29 19:06] LABS: Lactic Sepsis W/Reflex 1.2 mmol/L (0.5-2.2)
[2024-04-29 19:19] LABS: Acetaminophen < 5.0 ug/mL (10-30); Alcohol Level < 10 mg/dL (0-10); Anion Gap 17.7 (5-19); Potassium 4.7 mmol/L (3.5-5.1)
[2024-04-29 19:36] LABS: Bilirubin Urine Negative (Negative); Blood Urine Trace (Negative); Glucose Urine UA Negative (Normal); Ketones Urine Negative (Negative); Leukocyte Esterase Urine 3+ (Negative); Nitrate Urine Negative (Negative); Protein Urine 3+ (Negative); Specific Gravity, Urine 1.005 (1.005-1.030); Urine Appearance Cloudy (CLEAR); Urine Color Yellow (Yellow); Urobilinogen Urine 0.2 mg/dL (Negative)
[2024-04-29 19:39] LABS: Bacteria Urine EXCEEDS /hpf; Hyaline Casts Urine 0.81 /lpf; RBC Urine 0-2 /hpf (0-2); Squamous Epithelial Cell Urine 0-5 /hpf (0-5); WBC Urine >100 /hpf (0-5)
[2024-04-29 19:54] LABS: Add Urine Culture? Yes
[2024-04-29] MEDS: cefTRIAXone 1,000 MG in water for injection-sterile 2.1 ML 1 MG IM (20:01)
== END 2024-04-29 20:28 | disposition home or self-care (01) ==
PROVIDERS: Emergency Provider Emergency Medicine; PCP Family Medicine
DX: N39.0 Urinary tract infection, site not specified (principal); G93.41 Metabolic encephalopathy; F79 Unspecified intellectual disabilities; E11.22 Type 2 diabetes mellitus with diabetic chronic kidney disease; N18.6 End stage renal disease; Z99.2 Dependence on renal dialysis; E78.2 Mixed hyperlipidemia; Z72.0 Tobacco use; Z79.82 Long term (current) use of aspirin; Z79.4 Long term (current) use of insulin
CPT/HCPCS: 36415; 71045; 80053; 80307; 81001; 83605; 83735; 84100; 85025; 86140; 87040; 87077; 87086; 87186; 93005; 96372; 99285; J0696

== ENCOUNTER → 2024-05-28 11:30 | Outpatient (BNVA) | payer MEDICAID, SELFPAY | PROVIDERS: PCP Family Medicine; Visit Provider Internal Medicine | DX: Z79.4 Long term (current) use of insulin; N18.6 End stage renal disease; E13.22 Other specified diabetes mellitus with diabetic chronic kidney disease; Z99.2 Dependence on renal dialysis | CPT/HCPCS: 99214 ==

== ENCOUNTER 2024-06-08 09:47 | Emergency (ER) | payer MEDICAID, SELFPAY ==
[2024-06-08 09:50] VITALS: BP 117/58; PULSE 70; TEMP 36.7; O2SAT 100
--- NOTE | 2024-06-08 09:51 | XRR_ITS ---
PROCEDURE INFORMATION: Exam: XR Chest Exam date and time: 06/08/2024 10:09 AM Age: 54 years old Clinical indication: Other: Weakness; Prior surgery; Surgery date: 6+ months; Surgery type: Dialysis cath TECHNIQUE: Imaging protocol: Radiologic exam of the chest. Views: 1 view. COMPARISON: CR (CHEST, ) 04/29/2024 6:25 PM FINDINGS: Tubes, catheters and devices: A tunneled right internal jugular central venous dialysis catheter is noted with the catheter tip projected over the right atrium. Lungs: No consolidation. Pleural spaces: Unremarkable. No pleural effusion. No pneumothorax. Heart/Mediastinum: Unremarkable. No cardiomegaly. Bones/joints: Unremarkable. XR/XR chest 1V portable [id number] IMPRESSION: Central venous catheter in place as described.
--- NOTE | 2024-06-08 10:21 | ED_ITS ---
HPI - Weakness 2 General: Chief complaint: Weakness Stated complaint: general weakness Time Seen by Provider: 06/08/24 09:49 Source: patient and EMS Mode of arrival: EMS History of Present Illness: 54-year-old male that I know well he has a history of intellectual disability he is from a snf he stated to them today just felt weak did not feel overall well having some generalized weakness. Areas denies any vomiting he states he just feels tired. He is afebrile here his temp is normal. Denies any dysuria denies any chest pain Associated symptoms: Denies chest pain, chills, dysuria, easy bruising, fever(s), headache(s), nausea or vomiting Review of Systems 2 Const: Reports: fatigue; Denies: fever(s), chills, body aches or change in appetite ENMT: Denies: throat pain or dental pain Card: Denies: chest pain Resp: Denies: dyspnea GI: Denies: abdominal pain, nausea, vomiting or diarrhea : Denies: dysuria Musc: Denies: neck pain or back pain Skin/Breast: Denies: rash Neuro: Denies: headache(s) Psych: Denies: depression Brandan/Lymph: Denies: easy bruising All/Imm: Denies: urticaria PFSH ED 2 PFSH: Medical History Hyperlipemia, mixed Acute renal failure Acute kidney injury superimposed on CKD Acute hyponatremia Hyponatremia Anemia Hypervolemia Tobacco abuse Diabetes Social History Smoking and tobacco/nicotine status: never used tobacco/nicotine Physical Exam 2 Const: COMMON NORMALS: no acute distress, patient oriented x3 and healthy appearing HENMT: COMMON NORMALS: normocephalic and atraumatic HEAD & SCALP: n ormocephalic and atraumatic Neck/C-Spine: COMMON NORMALS: full ROM and supple Chest: COMMONS NORMALS: normal inspection of the chest and normal palpation of entire chest wall Resp: COMMON NORMALS: normal respiratory effort, No retractions, No use of accessory muscles and clear to auscultation bilaterally AUSCULTATION: clear to auscultation bilaterally Cardio: COMMON NORMALS: regular rate, regular rhythm and No murmurs present (Cardio) RATE: regular rate RHYTHM: regular rhythm GI: COMMON NORMALS: Normal to inspection, nondistended, normoactive bowel sounds present, Soft to palpation, non-tender and no masses PALPATION: Yes Soft to palpation Extremity: COMMON NORMALS: normal to inspection and full ROM Neuro: COMMON NORMALS: patient oriented x3, moves all extremities and no focal motor deficits Psych: COMMON NORMALS: mental status grossly normal, Normal thought process present and cooperative THOUGHT PROCESS: Normal thought process present Skin: COMMON NORMALS: no rashes or lesions noted and no wounds GENERAL SKIN EXAM: no rashes or lesions noted Course 2 Vital Signs: Vital signs: Vital Signs Temperature 98.1 F 06/08/24 09:50 Pulse Rate 66 06/08/24 11:00 Blood Pressure 117/58 06/08/24 11:00 Pulse Oximetry 100 06/08/24 11:00 Oxygen Delivery Me thod Room Air 06/08/24 11:00 MDM - Weakness Medical Decision Making Patient presents here with some fatigue and weakness he has been well-appearing here normal vitals blood works normal he has no signs of any infection he is stable for discharge follow-up PCP return if worsening. Medical Records I reviewed the patient's medical records. Lab Data I reviewed the patient's lab results. 06/08/24 10:54 06/08/24 10:54 Radiology Impressions Chest X-Ray 06/08/24 09:51 IMPRESSION: Central venous catheter in place as described. Laboratory Results WBC 4.99 10^3/uL (3.29-11.43) 06/08/24 10:54 RBC 4.05 10^6/uL (3.85-5.65) 06/08/24 10:54 Hgb 12.20 g/dL (11.27-16.99) 06/08/24 10:54 Hct 38.6 % (37-53) 06/08/24 10:54 MCV 95.3 fl (82-101) 06/08/24 10:54 MCH 30.1 pg (27-33) 06/08/24 10:54 MCHC 31.6 g/dL (30-55) 06/08/24 10:54 RDW 14.8 % (12.1-15.1) 06/08/24 10:54 Plt Count 225 10^3/cmm (157-399) 06/08/24 10:54 MPV 9.7 fL (7.4-10.4) 06/08/24 10:54 Neut % (Auto) 72.8 % 06/08/24 10:54 Lymph % (Auto) 16.2 % 06/08/24 10:54 [place] % (Auto) 9.4 % 06/08/24 10:54 Eos % (Auto) 0.6 % 06/08/24 10:54 Baso % (Auto) 0.4 % 06/08/24 10:54 Neut # (Auto) 3.63 10^3/uL (1.8-7.7) 06/08/24 10:54 Lymph # (Auto) 0.8 10^3/uL (0.8-4.8) 06/08/24 10:54 [place] # (Auto) 0.5 10^3/uL (0.2-0.9) 06/08/24 10:54 Eos # (Auto) 0.0 10^3/uL (0.0-0.8) 06/08/24 10:54 Baso # (Auto) 0.0 10^3/uL (0.0-0.1) 06/08/24 10:54 Nucleated RBC % (auto) 0 % 06/08/24 10:54 Nucleated RBCs # 0.0 /100WBC 06/08/24 10:54 Sodium 134 mmol/L (136-145) L 06/08/24 10:54 Potassium 4.6 mmol/L (3.5-5.1) 06/08/24 10:54 Chloride 100 mmol/L (98-107) 06/08/24 10:54 Carbon Dioxide 21 mmol/L (22-29) L 06/08/24 10:54 Anion Gap 17.6 (5-19) 06/08/24 10:54 BUN 36 mg/dL (6-20) H 06/08/24 10:54 Creatinine 3.6 mg/dL (0.7-1.2) H 06/08/24 10:54 GFR Calculation 21.4 mL/min (90-130) L 06/08/24 10:54 Glucose 159 mg/dL (65-115) H 06/08/24 10:54 POC Glucose 139 mg/dL (70-110) H 06/08/24 10:55 Calculated Osmolality 290 mOsm/kg (285-295) 06/08/24 10:54 Calcium 8.5 mg/dL (8.5-10.5) 06/08/24 10:54 Total Bilirubin 0.5 mg/dL (0.15-1.2) 06/08/24 10:54 AST 24 U/L (0-40) 06/08/24 10:54 ALT 12 U/L (0-41) 06/08/24 10:54 Alkaline Phosphatase 79 U/L (40-130) 06/08/24 10:54 Total Protein 6.2 g/dL (6.6-8.7) L 06/08/24 10:54 Albumin 3.4 g/dL (3.5-5.2) L 06/08/24 10:54 Globulin 2.8 g/dL (1.3-4.6) 06/08/24 10:54 SARS-CoV-2 Ag (Rapid) negative (Negative) 06/08/24 10:57 All radiology interpretation(s) finalized by discharge Discharge Plan Discharge Patient Disposition: Home Clinical Impression: Weakness Condition: Stable Prescriptions: No Action isosorbide mononitrate 60 mg tablet extended release 24 hr 60 mg PO DAILY@ (DME) OneTouch Ultra Test Strip See Rx Instructions .ROUTE .MEDSUPPLY Qty: 10 Rx Instructions: As directed (DME) pen needle, diabetic [TechLITE Pen Needle] 31 gauge x 5/16 needle See Rx Instructions .ROUTE .MEDSUPPLY Qty: 1200 Rx Instructions: As directed (DME) lancets [TRUEplus Lancets] 33 gauge misc See Rx Instructions .ROUTE .MEDSUPPLY Qty: 100 Rx Instructions: As directed clonazepam 0.5 mg tablet 0.5 mg PO hydrocodone-acetaminophen 7.5-325 mg tablet 1 tab PO Q6H PRN (Reason: Pain (Scale Score 7-10)) carvedilol 25 mg Tablet 25 mg PO BID@, Rx Instructions: must administer with a meal/food. Hold if systolic BP is below 90 or diastolic BP below 60. atorvastatin 10 mg Tablet 10 mg PO BEDTIME@21 carbamazepine 200 mg Tablet 200 mg PO TID@,, amlodipine 10 mg Tablet 10 mg PO DAILY@09 ferrous sulfate 325 mg (65 mg iron) Tablet 325 mg PO DAILY@09 benztropine 1 mg Tablet 1 mg PO BID@ acetaminophen [Tylenol] 325 mg Capsule 650 mg PO Q4H PRN (Reason: Pain) Hold Instructions: Resume on 02/03/24. multivitamin with folic acid [Daily-Sean (with folic acid)] 400 mcg tablet 1 tab PO DAILY@ gabapentin 300 mg capsule 300 mg PO DAILY@ trazodone 100 mg tablet 100 mg PO BEDTIME@ aripiprazole 15 mg tablet 15 mg PO DAILY@ insulin aspart U-100 [Novolog FlexPen U-100 Insulin] 100 unit/mL (3 mL) insulin pen See Rx Instructions .ROUTE .COMPLEX Rx Instructions: sliding scale subcutaneously tid Eucerin Cream 1 applic TOPICAL DAILY PRN (Reason: unknown) lurasidone [Latuda] 120 mg tablet 60 mg PO BID@, magnesium oxide 400 mg magnesium tablet 400 mg PO TID@,, naloxone [Narcan] 4 mg/actuation spray,non-aerosol 1 spray INTRANASAL PRN PRN (Reason: Opioid Reversal) hydralazine 25 mg tablet 25 mg PO QID metoclopramide HCl 10 mg tablet 10 mg PO Q8H PRN (Reason: Nausea) aspirin 325 mg tablet,delayed release (DR/EC) 325 mg PO DAILY fenofibrate 160 mg tablet 160 mg PO DAILY Discharge Orders: Discharge ED (Routine); Ordered 06/08/24 Ordered By: Oneida De Anda Referrals: Ahsan Gilliam MD [Primary Care Provider] - 4-7 days Discharge Diet: Advance as tolerated Discharge Activity: Resume usual activity Patient Instructions: Weakness (ED) Coding Level of Care Code ED Practice 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 Related Data Home Medications Medication Instructions Recorded Confirmed acetaminophen 325 mg capsule 650 mg PO Q4H PRN Pain 03/30/23 05/28/24 (Tylenol) amlodipine 10 mg tablet 10 mg PO DAILY@03/30/23 05/28/24 atorvastatin 10 mg tablet 10 mg PO BEDTIME@03/30/23 05/28/24 benztropine 1 mg tablet 1 mg PO BID@,03/30/23 05/28/24 carbamazepine 200 mg tablet 200 mg PO TID@,,03/30/23 05/28/24 carvedilol 25 mg tablet 25 mg PO BID@,03/30/23 05/28/24 ferrous sulfate 325 mg (65 mg 325 mg PO DAILY@03/30/23 05/28/24 iron) tablet multivitamin with folic acid 400 1 tab PO DAILY@03/30/23 05/28/24 mcg tablet (Daily-Sean (with folic acid)) isosorbide mononitrate 60 mg 60 mg PO DAILY@07/18/23 05/28/24 tablet,extended release 24 hr blood sugar diagnostic (OneTouch #10 ea 09/26/23 05/28/24 Ultra Test strips) lancets 33 gauge (TRUEplus Lancets) #100 ea 09/26/23 05/28/24 pen needle, diabetic 31 gauge x #1,200 ea 09/26/23 05/28/2402/13 (TechLITE Pen Needle) gabapentin 300 mg capsule 300 mg PO DAILY@10/24/23 05/28/24 aripiprazole 15 mg tablet 15 mg PO DAILY@12/07/23 05/28/24 insulin aspart U-100 100 unit/mL See Rx Instructions .Route .COMPLEX 12/07/23 05/28/24 (3 mL) subcutaneous pen (Novolog FlexPen U-100 Insulin aspart) lanolin alcohols-mineral 1 applic topical DAILY PRN unknown 12/07/23 05/28/24 oil-w.petrolatum-ceresin topical cream (Eucerin topical cream) lurasidone 120 mg tablet (Latuda) 60 mg PO BID@,12/07/23 05/28/24 magnesium oxide 400 mg PO TID@,,12/07/23 05/28/24 trazodone 100 mg tablet 100 mg PO BEDTIME@12/07/23 05/28/24 naloxone 4 mg/actuation nasal 1 spray intranasal PRN PRN Opioid 01/30/24 05/28/24 spray (Narcan) Reversal hydralazine 25 mg tablet 25 mg PO QID 01/31/24 05/28/24 metoclopramide HCl 10 mg tablet 10 mg PO Q8H PRN Nausea 01/31/24 05/28/24 hydrocodone 7.5 mg-acetaminophen 1 tab PO Q6H PRN Pain (Scale Score 02/07/24 05/28/24 325 mg tablet 7-10) aspirin 325 mg tablet,delayed 325 mg PO DAILY 02/15/24 05/28/24 release fenofibrate 160 mg tablet 160 mg PO DAILY 02/15/24 05/28/24 clonazepam 0.5 mg tablet 0.5 mg PO 05/28/24 05/28/24 Allergies Allergy/AdvReac Type Severity Reaction Status Date / Time No Known Allergies Allergy Verified 06/08/24 09:55
--- NOTE | 2024-06-08 10:57 | ECG_ITS ---
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1970 Requested By: Oneida De Anda Order Number: [id number] Debora MD: JONATHAN FALLON Measurements Intervals Clever Rate: 67 P: 66 OH: 191 QRS: -52 QRSD: 108 T: -56 QT: 424 QTc: 448 Interpretive Statements SINUS RHYTHM LEFT ANTERIOR FASCICULAR BLOCK [QRS AXIS <= -45, QR IN I, RS IN II] MODERATE T-WAVE ABNORMALITY, CONSIDER INFERIOR ISCHEMIA [-0.1+ mV T-WAVE IN II/aVF] Compared to ECG 04/29/2024 18:40:47 Left anterior fascicular block now present T-wave abnormality now present Possible ischemia now present Left-axis deviation no longer present Left ventricular hypertrophy no longer present ST (T wave) deviation no longer present Myocardial infarct finding no longer present Electronically Signed On 06-08-2024 18:50:03 CDT by JNOATHAN FALLON [email or web address]
[2024-06-08 10:58] LABS: Basophils % 0.4 %; Eosinophils % 0.6 %; Hematocrit 38.6 % (37-53); Lymphocytes # 0.8 10^3/uL (0.8-4.8); Lymphocytes % 16.2 %; Mean Corpuscular HGB Conc 31.6 g/dL (30-55); Mean Corpuscular Hemoglobin 30.1 pg (27-33); Mean Corpuscular Volume 95.3 fl (82-101); Mean Platelet Volume 9.7 fL (7.4-10.4); Monocytes # 0.5 10^3/uL (0.2-0.9); Monocytes % 9.4 %; Neutrophils # 3.63 10^3/uL (1.8-7.7); Neutrophils % 72.8 %; Nucleated Red Blood Cells % 0 %; Platelet Count 225 10^3/cmm (157-399); Red Blood Count 4.05 10^6/uL (3.85-5.65); Red Cell Distribution Width 14.8 % (12.1-15.1); White Blood Count 4.99 10^3/uL (3.29-11.43)
[2024-06-08 10:59] LABS: Glucose Point of Care 139 mg/dL (70-110)
[2024-06-08 11:00] VITALS: BP 117/58; PULSE 66; O2SAT 100
[2024-06-08 11:18] LABS: Alanine Aminotransferase 12 U/L (0-41); Albumin Level 3.4 g/dL (3.5-5.2); Alkaline Phosphatase 79 U/L (40-130); Anion Gap 17.6 (5-19); Aspartate Amino Transferase 24 U/L (0-40); Blood Urea Nitrogen 36 mg/dL (6-20); Calcium 8.5 mg/dL (8.5-10.5); Carbon Dioxide 21 mmol/L (22-29); Chloride 100 mmol/L (98-107); Globulin 2.8 g/dL (1.3-4.6); Glomerular Filtration Rate 21.4 mL/min (90-130); Glucose 159 mg/dL (65-115); Osmolality Calculated 290 mOsm/kg (285-295); Potassium 4.6 mmol/L (3.5-5.1); Sodium 134 mmol/L (136-145); Total Bilirubin 0.5 mg/dL (0.15-1.2); Total Protein 6.2 g/dL (6.6-8.7)
[2024-06-08 11:20] LABS: SARS Covid-2 Antigen negative (Negative)
[2024-06-08 13:09] VITALS: BP 118/69; PULSE 67; O2SAT 100
[2024-06-08 13:10] VITALS: BP 118/69; PULSE 67; O2SAT 100
== END 2024-06-08 13:13 | disposition home or self-care (01) ==
PROVIDERS: Emergency Provider Emergency Medicine; PCP Family Medicine
DX: R53.1 Weakness (principal); Z11.52 Encounter for screening for COVID-19; Z79.82 Long term (current) use of aspirin; Z79.4 Long term (current) use of insulin
CPT/HCPCS: 36416; 71045; 80053; 82962; 85025; 87426; 93005; 99285

== ENCOUNTER → 2024-06-09 08:45 | Outpatient (BNVA) | payer MEDICAID, SELFPAY | PROVIDERS: PCP Family Medicine; Visit Provider Podiatrist Foot & Ankle Surgery | DX: L60.3 Nail dystrophy (principal); N18.6 End stage renal disease; G62.9 Polyneuropathy, unspecified; E11.42 Type 2 diabetes mellitus with diabetic polyneuropathy; Z79.4 Long term (current) use of insulin | CPT/HCPCS: 11721 ==

== ENCOUNTER 2024-06-29 14:57 | Emergency (ER) | payer MEDICAID, SELFPAY ==
[2024-06-29 15:02] VITALS: BP 179/89; PULSE 78; RESP 17; TEMP 36.7; O2SAT 100
[2024-06-29 16:00] LABS: Basophils % 0.8 %; Eosinophils # 0.1 10^3/uL (0.0-0.8); Eosinophils % 1.8 %; Hematocrit 35.3 % (37-53); Lymphocytes # 1.2 10^3/uL (0.8-4.8); Lymphocytes % 22.7 %; Mean Corpuscular Hemoglobin 29.6 pg (27-33); Mean Corpuscular Volume 92.4 fl (82-101); Mean Platelet Volume 9.4 fL (7.4-10.4); Monocytes # 0.4 10^3/uL (0.2-0.9); Neutrophils # 3.41 10^3/uL (1.8-7.7); Neutrophils % 66.5 %; Nucleated Red Blood Cells % 0 %; Platelet Count 218 10^3/cmm (157-399); Red Blood Count 3.82 10^6/uL (3.85-5.65); Red Cell Distribution Width 14.3 % (12.1-15.1); White Blood Count 5.12 10^3/uL (3.29-11.43)
[2024-06-29 16:20] LABS: Alanine Aminotransferase 14 U/L (0-41); Alkaline Phosphatase 78 U/L (40-130); Anion Gap 15.9 (5-19); Aspartate Amino Transferase 23 U/L (0-40); Blood Urea Nitrogen 33 mg/dL (6-20); Calcium 9.4 mg/dL (8.5-10.5); Carbon Dioxide 25 mmol/L (22-29); Chloride 94 mmol/L (98-107); Creatinine Clr Calc Pharmacy 20.5522; Globulin 3.2 g/dL (1.3-4.6); Glucose 149 mg/dL (65-115); Osmolality Calculated 280 mOsm/kg (285-295); Potassium 4.9 mmol/L (3.5-5.1); Sodium 130 mmol/L (136-145); Total Bilirubin 0.3 mg/dL (0.15-1.2); Total Protein 7.2 g/dL (6.6-8.7)
--- NOTE | 2024-06-29 17:00 | XRR_ITS ---
PROCEDURE INFORMATION: Exam: XR Chest Exam date and time: 06/29/2024 5:39 PM Age: 54 years old Clinical indication: Pain; Chest pressure; Additional info: Chest pain TECHNIQUE: Imaging protocol: Radiologic exam of the chest. Views: 2 views. COMPARISON: CR (CHEST, ) 06/08/2024 10:09 AM FINDINGS: Tubes, catheters and devices: Right internal jugular central venous dialysis catheter with its tip terminating in the right atrium, unchanged. Lungs: Unremarkable. No consolidation. Pleural spaces: Unremarkable. No pleural effusion. No pneumothorax. Heart/Mediastinum: Unchanged cardiac silhouette. Bones/joints: Unremarkable. XR/XR chest 2V* [id number] IMPRESSION: No acute interval changes.
--- NOTE | 2024-06-29 17:10 | ECG_ITS ---
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 Measurements Intervals [place] Rate: 73 P: 65 NC: 213 QRS: -67 QRSD: 139 T: 32 QT: 413 QTc: 456 Interpretive Statements SINUS RHYTHM WITH FIRST DEGREE AV BLOCK INTRAVENTRICULAR CONDUCTION DELAY [130+ ms QRS DURATION] PROBABLE SEPTAL MYOCARDIAL INFARCTION , OF INDETERMINATE AGE [35 ms Q WAVE IN V1/V2] Compared to ECG 06/08/2024 10:57:44 First degree AV block now present Intraventricular conduction delay now present Myocardial infarct finding now present Left anterior fascicular block no longer present T-wave abnormality no longer present Possible ischemia no longer present Electronically Signed On 06-30-2024 18:46:37 CDT by Izaiah Reyna M.D. [id number]
[2024-06-29 17:59] VITALS: BP 171/80; PULSE 71; O2SAT 100
--- NOTE | 2024-06-29 18:41 | PC.NURSE ---
PT REFUSED URINE SAMPLE AND CATH. DR. HARDIN MADE AWARE.
--- NOTE | 2024-06-29 18:55 | W.ED.GENADLT ---
HPI - General Adult General: Chief complaint: General Medical Stated complaint: hyperglycemia Time Seen by Provider: 06/29/24 16:45 History of Present Illness: This patient is a 54-year-old with a history of intellectual disability. [facility] [place]. He was sent over today because his blood sugar was 250 after eating a piece of sugar-free cake. The patient is extremely difficult to understand but I believe he is complaining of feeling sick after he eats. He seems to blame this on eating sugar-free foods and seems to wish that they would give him something that was not sugar-free. He also complains of some left-sided chest pain. He is a dialysis patient and was dialyzed on Sunday which is his normal day. He does make some urine but denies urinary complaints. He denies diarrhea. He denies shortness of breath. There is no history of fever. Staff accompanies him and reports that he has been in a bad mood the last few days. Related Data Home Medications Medication Instructions Recorded Confirmed acetaminophen 325 mg capsule 650 mg PO Q4H PRN Pain 03/30/23 06/09/24 (Tylenol) amlodipine 10 mg tablet 10 mg PO DAILY@03/30/23 06/09/24 atorvastatin 10 mg tablet 10 mg PO BEDTIME@03/30/23 06/09/24 benztropine 1 mg tablet 1 mg PO BID@,03/30/23 06/09/24 carbamazepine 200 mg tablet 200 mg PO TID@,,03/30/23 06/09/24 carvedilol 25 mg tablet 25 mg PO BID@,03/30/23 06/09/24 ferrous sulfate 325 mg (65 mg 325 mg PO DAILY@03/30/23 06/09/24 iron) tablet multivitamin with folic acid 400 1 tab PO DAILY@03/30/23 06/09/24 mcg tablet (Daily-Sean (with folic acid)) isosorbide mononitrate 60 mg 60 mg PO DAILY@07/18/23 06/09/24 tablet,extended release 24 hr blood sugar diagnostic (OneTouch #10 ea 09/26/23 06/09/24 Ultra Test strips) lancets 33 gauge (TRUEplus Lancets) #100 ea 09/26/23 06/09/24 pen needle, diabetic 31 gauge x #1,200 ea 09/26/23 06/09/24/16 (TechLITE Pen Needle) gabapentin 300 mg capsule 300 mg PO DAILY@10/24/23 06/09/24 aripiprazole 15 mg tablet 15 mg PO DAILY@12/07/23 06/09/24 insulin aspart U-100 100 unit/mL See Rx Instructions .Route .COMPLEX 12/07/23 06/09/24 (3 mL) subcutaneous pen (Novolog FlexPen U-100 Insulin aspart) lanolin alcohols-mineral 1 applic topical DAILY PRN unknown 12/07/23 06/09/24 oil-w.petrolatum-ceresin topical cream (Eucerin topical cream) lurasidone 120 mg tablet (Latuda) 60 mg PO BID@12/07/23 06/09/24 magnesium oxide 400 mg PO TID@12/07/23 06/09/24 trazodone 100 mg tablet 100 mg PO BEDTIME@12/07/23 06/09/24 naloxone 4 mg/actuation nasal 1 spray intranasal PRN PRN Opioid 01/30/24 06/09/24 spray (Narcan) Reversal hydralazine 25 mg tablet 25 mg PO QID 01/31/24 06/09/24 metoclopramide HCl 10 mg tablet 10 mg PO Q8H PRN Nausea 01/31/24 06/09/24 hydrocodone 7.5 mg-acetaminophen 1 tab PO Q6H PRN Pain (Scale Score 02/07/24 06/09/24 325 mg tablet 7-10) aspirin 325 mg tablet,delayed 325 mg PO DAILY 02/15/24 06/09/24 release fenofibrate 160 mg tablet 160 mg PO DAILY 02/15/24 06/09/24 clonazepam 0.5 mg tablet 0.5 mg PO 05/28/24 06/09/24 Allergies Allergy/AdvReac Type Severity Reaction Status Date / Time No Known Allergies Allergy Verified 06/09/24 08:54 PFS ED PFSH: Medical History Hyperlipemia, mixed Acute renal failure Acute kidney injury superimposed on CKD Acute hyponatremia Hyponatremia Anemia Hypervolemia Tobacco abuse Diabetes Social History Smoking and tobacco/nicotine status: unknown if used tobacco/nicotine Physical Exam Const: COMMON NORMALS: no acute distress, no limitations and alert GENERAL APPEARANCE: cooperative and comfortable HENMT: HEAD & SCALP: normal to inspection FACE & SINUS: normal facial exam OTHER: Edentulous, very hard to understand his speech Eye: GENERAL EYE: appearance normal, both eyes and all related structures Neck/C-Spine: COMMON NORMALS: supple, no meningeal signs and no JVD Chest: COMMONS NORMALS: normal inspection of the chest and normal palpation of entire chest wall (Marked tenderness to palpation over the left chest wall) OTHER: There is a catheter for dialysis in the right upper chest Resp: COMMON NORMALS: normal respiratory effort, No use of accessory muscles and clear to auscultation bilaterally AUSCULTATION: clear to auscultation bilaterally Cardio: COMMON NORMALS: no JVD, regular rate, regular rhythm and No murmurs present (Cardio) RATE: regular rate RHYTHM: regular rhythm GI: COMMON NORMALS: Normal to inspection, nondistended, normoactive bowel sounds present, Soft to palpation and non-tender INSPECTION: Yes normal to inspection AUSCULTATION: Yes normoactive bowel sounds PALPATION: Yes Soft to palpation Back/Pelvis: COMMON NORMALS: thoracic and lumbar spine normal to inspection Extremity: COMMON NORMALS: normal to inspection Neuro: COMMON NORMALS: moves all extremities, no focal motor deficits and no sensory deficits noted SENSORIUM/ORIENTATION: Yes alert MENINGEAL SIGNS: Yes no meningeal signs Psych: OTHER: Patient seems irritated at my questions and attempts to examine him Skin: COMMON NORMALS: no rashes or lesions noted and turgor normal GENERAL SKIN EXAM: no rashes or lesions noted and turgor normal Course Vital Signs: Vital signs: Vital Signs Temperature 98.1 F 06/29/24 15:02 Pulse Rate 71 06/29/24 17:59 Respiratory Rate 17 06/29/24 15:02 Blood Pressure 171/80 06/29/24 17:59 Pulse Oximetry 100 06/29/24 17:59 Oxygen Delivery Me thod Room Air 06/29/24 17:59 [facility] - General Adult Medical Decision Making Patient's exam seems to be benign other than the tenderness over the left chest wall. I am not sure the cause of this. There is no history of fall or trauma. I do not feel any crepitus. Chest x-ray was ordered and done and did not show any abnormalities consistent with that area of tenderness. EKG was done and was unremarkable as well. Labs are consistent with his history of end-stage renal disease. No other concerns. He was not able to give a urine specimen. He was able to tolerate p.o. fluids. His blood sugar had come back down into an acceptable range. It is not really clear what is bothering him and he may need further evaluation as an outpatient. He does not appear to have an emergent condition that needs to be further evaluated today. Lab Data 06/29/24 15:52 06/29/24 15:52 Laboratory Results WBC 5.12 10^3/uL (3.29-11.43) 06/29/24 15:52 RBC 3.82 10^6/uL (3.85-5.65) L 06/29/24 15:52 Hgb 11.30 g/dL (11.27-16.99) 06/29/24 15:52 Hct 35.3 % (37-53) L 06/29/24 15:52 MCV 92.4 fl (82-101) 06/29/24 15:52 MCH 29.6 pg (27-33) 06/29/24 15:52 MCHC 32.0 g/dL (30-55) 06/29/24 15:52 RDW 14.3 % (12.1-15.1) 06/29/24 15:52 Plt Count 218 10^3/cmm (157-399) 06/29/24 15:52 MPV 9.4 fL (7.4-10.4) 06/29/24 15:52 Neut % (Auto) 66.5 % 06/29/24 15:52 Lymph % (Auto) 22.7 % 06/29/24 15:52 Gilliam % (Auto) 8.0 % 06/29/24 15:52 Eos % (Auto) 1.8 % 06/29/24 15:52 Baso % (Auto) 0.8 % 06/29/24 15:52 Neut # (Auto) 3.41 10^3/uL (1.8-7.7) 06/29/24 15:52 Lymph # (Auto) 1.2 10^3/uL (0.8-4.8) 06/29/24 15:52 Gilliam # (Auto) 0.4 10^3/uL (0.2-0.9) 06/29/24 15:52 Eos # (Auto) 0.1 10^3/uL (0.0-0.8) 06/29/24 15:52 Baso # (Auto) 0.0 10^3/uL (0.0-0.1) 06/29/24 15:52 Nucleated RBC % (auto) 0 % 06/29/24 15:52 Nucleated RBCs # 0.0 /100WBC 06/29/24 15:52 Sodium 130 mmol/L (136-145) L 06/29/24 15:52 Potassium 4.9 mmol/L (3.5-5.1) 06/29/24 15:52 Chloride 94 mmol/L (98-107) L 06/29/24 15:52 Carbon Dioxide 25 mmol/L (22-29) 06/29/24 15:52 Anion Gap 15.9 (5-19) 06/29/24 15:52 BUN 33 mg/dL (6-20) H 06/29/24 15:52 Creatinine 4.0 mg/dL (0.7-1.2) H 06/29/24 15:52 GFR Calculation 19.0 mL/min (90-130) L 06/29/24 15:52 Glucose 149 mg/dL (65-115) H 06/29/24 15:52 Calculated Osmolality 280 mOsm/kg (285-295) L 06/29/24 15:52 Calcium 9.4 mg/dL (8.5-10.5) 06/29/24 15:52 Total Bilirubin 0.3 mg/dL (0.15-1.2) 06/29/24 15:52 AST 23 U/L (0-40) 06/29/24 15:52 ALT 14 U/L (0-41) 06/29/24 15:52 Alkaline Phosphatase 78 U/L (40-130) 06/29/24 15:52 Total Protein 7.2 g/dL (6.6-8.7) 06/29/24 15:52 Albumin 4.0 g/dL (3.5-5.2) 06/29/24 15:52 Globulin 3.2 g/dL (1.3-4.6) 06/29/24 15:52 All radiology interpretation(s) finalized by discharge Discharge Plan Discharge Patient Disposition: Home Clinical Impression: Type 2 diabetes mellitus, ESRD (end stage renal disease), Intellectual disability, Chest wall discomfort Condition: Stable Prescriptions: No Action isosorbide mononitrate 60 mg tablet extended release 24 hr 60 mg PO DAILY@09 (DME) OneTouch Ultra Test Strip See Rx Instructions .ROUTE .MEDSUPPLY Qty: 10 Rx Instructions: As directed (DME) pen needle, diabetic [TechLITE Pen Needle] 31 gauge x 5/16 needle See Rx Instructions .ROUTE .MEDSUPPLY Qty: 1200 Rx Instructions: As directed (DME) lancets [TRUEplus Lancets] 33 gauge misc See Rx Instructions .ROUTE .MEDSUPPLY Qty: 100 Rx Instructions: As directed clonazepam 0.5 mg tablet 0.5 mg PO hydrocodone-acetaminophen 7.5-325 mg tablet 1 tab PO Q6H PRN (Reason: Pain (Scale Score 7-10)) carvedilol 25 mg Tablet 25 mg PO BID@, Rx Instructions: must administer with a meal/food. Hold if systolic BP is below 90 or diastolic BP below 60. atorvastatin 10 mg Tablet 10 mg PO BEDTIME@21 carbamazepine 200 mg Tablet 200 mg PO TID@, amlodipine 10 mg Tablet 10 mg PO DAILY@09 ferrous sulfate 325 mg (65 mg iron) Tablet 325 mg PO DAILY@09 benztropine 1 mg Tablet 1 mg PO BID@ acetaminophen [Tylenol] 325 mg Capsule 650 mg PO Q4H PRN (Reason: Pain) Hold Instructions: Resume on 02/03/24. multivitamin with folic acid [Daily-Sean (with folic acid)] 400 mcg tablet 1 tab PO DAILY@09 gabapentin 300 mg capsule 300 mg PO DAILY@09 trazodone 100 mg tablet 100 mg PO BEDTIME@21 aripiprazole 15 mg tablet 15 mg PO DAILY@09 insulin aspart U-100 [Novolog FlexPen U-100 Insulin] 100 unit/mL (3 mL) insulin pen See Rx Instructions .ROUTE .COMPLEX Rx Instructions: sliding scale subcutaneously tid Eucerin Cream 1 applic TOPICAL DAILY PRN (Reason: unknown) lurasidone [Latuda] 120 mg tablet 60 mg PO BID@ magnesium oxide 400 mg magnesium tablet 400 mg PO TID@,, naloxone [Narcan] 4 mg/actuation spray,non-aerosol 1 spray INTRANASAL PRN PRN (Reason: Opioid Reversal) hydralazine 25 mg tablet 25 mg PO QID metoclopramide HCl 10 mg tablet 10 mg PO Q8H PRN (Reason: Nausea) aspirin 325 mg tablet,delayed release (DR/EC) 325 mg PO DAILY fenofibrate 160 mg tablet 160 mg PO DAILY Discharge Orders: Discharge ED (Routine); Ordered 06/29/24 Ordered By: Naa Saxena Referrals: Ahsan Gilliam MD [Primary Care Provider] - Patient Instructions: Opioid Safety, Pain Management Coding Level of Care Code ED Feed Handler for Maria R Garrison
[2024-06-29 19:22] LABS: Bilirubin Urine Negative (Negative); Blood Urine Trace (Negative); Glucose Urine UA Negative (Normal); Ketones Urine Negative (Negative); Leukocyte Esterase Urine 3+ (Negative); Nitrate Urine Negative (Negative); Protein Urine 3+ (Negative); Specific Gravity, Urine 1.007 (1.005-1.030); Urine Appearance Cloudy (CLEAR); Urine Color Yellow (Yellow); Urobilinogen Urine 0.2 mg/dL (Negative)
[2024-06-29 19:24] VITALS: BP 192/91; PULSE 80; RESP 16; O2SAT 100
[2024-06-29 19:27] LABS: Add Urine Microscopic? YES; Bacteria Urine EXCEEDS /hpf; RBC Urine 0-2 /hpf (0-2); Squamous Epithelial Cell Urine 0-5 /hpf (0-5); WBC Urine >100 /hpf (0-5)
[2024-06-29 19:29] LABS: Add Urine Culture? Yes
[2024-06-30 02:53] LABS: Glucose Point of Care 165 mg/dL (70-110)
== END 2024-06-29 19:26 | disposition home or self-care (01) ==
PROVIDERS: Emergency Medicine; Emergency Provider Emergency Medicine; PCP Family Medicine
DX: E11.65 Type 2 diabetes mellitus with hyperglycemia (principal); F79 Unspecified intellectual disabilities; R07.89 Other chest pain; N18.6 End stage renal disease; E11.22 Type 2 diabetes mellitus with diabetic chronic kidney disease; Z79.4 Long term (current) use of insulin; Z79.899 Other long term (current) drug therapy
CPT/HCPCS: 36415; 36416; 71046; 80053; 81001; 82962; 85025; 87077; 87086; 87186; 93005; 99285

== ENCOUNTER 2024-09-04 10:36 | Emergency (ER) | payer MEDICAID, SELFPAY ==
[2024-09-04 10:38] VITALS: BP 119/67; PULSE 76; RESP 16; TEMP 36.6; O2SAT 100; BMI 20.7
--- NOTE | 2024-09-04 10:41 | XRR_ITS ---
PROCEDURE INFORMATION: Exam: XR Left Hip Exam date and time: 09/04/2024 12:06 PM Age: 54 years old Clinical indication: Injury or trauma; Fall; Blunt trauma (contusions or hematomas); Left; Hip TECHNIQUE: Imaging protocol: Radiologic exam of the left hip. Views: 2 or 3 views hip with pelvis when performed. COMPARISON: CR XR lumbar spine 2-3V* [id number] 01/09/2024 12:01 PM FINDINGS: Bones/joints: Unremarkable. No acute fracture. No lytic or sclerotic bone lesion. No significant arthritic changes. Soft tissues: Unremarkable. XR/XR hip LT 2-3V wo/w pel* [id number] IMPRESSION: No acute findings.
--- NOTE | 2024-09-04 10:41 | CT_ITS ---
WS: [id number] CT HEAD TECHNIQUE: Noncontrast CT of the head obtained from the skullbase to the vertex. CLINICAL INFORMATION: syncope COMPARISON: None. DLP: 1190.[address] scans at [facility] use at least one of these dose optimization techniques: automated e xposure control; mA and/or kV adjustment per patient size (includes targeted exams where dose is matc hed to clinical indication); or iterative reconstruction. FINDINGS: No evidence of intracranial hemorrhage or mass effect. Ventricular system and basal cisterns are plunkett nt. Moderate to advanced small vessel changes with mild parenchymal volume loss. No extra-axial fluid collections. No evidence of mass or mass effect. Vascular calcification Paranasal sinuses and mastoid air cells are well aerated. .Normal visualized soft tissues. CT/CT head wo con* [id number] IMPRESSION: 1. No evidence of intracranial hemorrhage or mass effect. 2. Small vessel changes advanced for patient this age. This be followed up wit h MRI on an elective basis. 3. No acute intracranial findings.
--- NOTE | 2024-09-04 10:41 | XRR_ITS ---
PROCEDURE INFORMATION: Exam: XR Left Knee Exam date and time: 09/04/2024 12:01 PM Age: 54 years old Clinical indication: Injury or trauma; Fall; Blunt trauma; Knee; Left TECHNIQUE: Imaging protocol: Radiologic exam of the left knee. Views: 3 views. COMPARISON: No relevant prior studies available. FINDINGS: Bones/joints: Fracture of the proximal fibula may be an old injury, a correlate clinically. No other osseous, joint, or soft tissue abnormality. Soft tissues: See Bones/joints finding. XR/XR knee LT 3V* [id number] IMPRESSION: Fracture of the proximal fibula, age of this fracture is uncertain.
--- NOTE | 2024-09-04 10:41 | ECG_ITS ---
[facility] Date: 2024-09-04 Pat Name: Tyrese Leach Department: Room: Gender: Male [employer] Licensee: : [id number] Requested By: Oneida De Anda Order Number: [id number] Debora MD: Izaiah Reyna M.D. Measurements Intervals [place] Rate: 67 P: 52 NC: 196 QRS: -56 QRSD: 131 T: 0 QT: 443 QTc: 469 Interpretive Statements SINUS RHYTHM INTRAVENTRICULAR CONDUCTION DELAY [130+ ms QRS DURATION] PROBABLE SEPTAL MYOCARDIAL INFARCTION , OF INDETERMINATE AGE [35 ms Q WAVE IN V1/V2] Compared to ECG 06/29/2024 17:10:19 First degree AV block no longer present Myocardial infarct finding still present Electronically Signed On 09-04-2024 14:39:52 JAIL OFFICER by Izaiah Reyna M.D. [id number]
--- NOTE | 2024-09-04 10:41 | XR_ITS ---
WS: [id number] XR chest 1V portable [id number] REASON FOR EXAM: fall FINDINGS: Right IJ dialysis catheter in proper position. Mild tortuosity of the thoracic aorta. Cardiomegaly. Calcified granulomas disease with calcified nodes in the hilar regions. Compared to recent previous examinations in June, there are some thin linear horizontal lung opa cities in the lower lung moraes which presumably represent areas of linear atelectasis. No other inte rval change is identified compared to the previous examinations. XR/XR chest 1V portable [id number] IMPRESSION: Cardiomegaly. Presumed interval minimal atelectasis in the lower lungs, otherwise the chest i s unchanged.
--- NOTE | 2024-09-04 10:47 | W.ED.SYNCOPE ---
HPI - Syncope General: Chief Complaint: Syncope Stated Complaint: syncope Time Seen by Provider: 09/04/24 10:38 Source: patient and EMS Mode of arrival: EMS History of Present Illness: 54-year-old male who is here from a nursing home from his recently he likely had a syncopal event this morning patient states he had stood up and felt very lightheaded got diaphoretic and passed out. Patient awoke he is given some fluids with EMS his initial pressures were hypotensive his blood pressures improved he states that he feels back to his normal his only complaint currently is a knee pain to his left knee where he had a fall a week ago. Denies any chest pain denies any vomiting Related Data Home Medications Medication Instructions Recorded Confirmed acetaminophen 325 mg capsule 650 mg PO Q4H PRN Pain 03/30/23 06/09/24 (Tylenol) amlodipine 10 mg tablet 10 mg PO DAILY@03/30/23 06/09/24 atorvastatin 10 mg tablet 10 mg PO BEDTIME@03/30/23 06/09/24 benztropine 1 mg tablet 1 mg PO BID@,03/30/23 06/09/24 carbamazepine 200 mg tablet 200 mg PO TID@,,03/30/23 06/09/24 carvedilol 25 mg tablet 25 mg PO BID@,03/30/23 06/09/24 ferrous sulfate 325 mg (65 mg 325 mg PO DAILY@03/30/23 06/09/24 iron) tablet multivitamin with folic acid 400 1 tab PO DAILY@03/30/23 06/09/24 mcg tablet (Daily-Sean (with folic acid)) isosorbide mononitrate 60 mg 60 mg PO DAILY@07/18/23 06/09/24 tablet,extended release 24 hr blood sugar diagnostic (OneTouch #10 ea 09/26/23 06/09/24 Ultra Test strips) lancets 33 gauge (TRUEplus Lancets) #100 ea 09/26/23 06/09/24 pen needle, diabetic 31 gauge x #1,200 ea 09/26/23 06/09/24 5/16 (TechLITE Pen Needle) gabapentin 300 mg capsule 300 mg PO DAILY@10/24/23 06/09/24 aripiprazole 15 mg tablet 15 mg PO DAILY@12/07/23 06/09/24 insulin aspart U-100 100 unit/mL See Rx Instructions .Route .COMPLEX 12/07/23 06/09/24 (3 mL) subcutaneous pen (Novolog FlexPen U-100 Insulin aspart) lanolin alcohols-mineral 1 applic topical DAILY PRN unknown 12/07/23 06/09/24 oil-w.petrolatum-ceresin topical cream (Eucerin topical cream) lurasidone 120 mg tablet (Latuda) 60 mg PO BID@12/07/23 06/09/24 magnesium oxide 400 mg PO TID@12/07/23 06/09/24 trazodone 100 mg tablet 100 mg PO BEDTIME@12/07/23 06/09/24 naloxone 4 mg/actuation nasal 1 spray intranasal PRN PRN Opioid 01/30/24 06/09/24 spray (Narcan) Reversal hydralazine 25 mg tablet 25 mg PO QID 01/31/24 06/09/24 metoclopramide HCl 10 mg tablet 10 mg PO Q8H PRN Nausea 01/31/24 06/09/24 hydrocodone 7.5 mg-acetaminophen 1 tab PO Q6H PRN Pain (Scale Score 02/07/24 06/09/24 325 mg tablet 7-10) aspirin 325 mg tablet,delayed 325 mg PO DAILY 02/15/24 06/09/24 release fenofibrate 160 mg tablet 160 mg PO DAILY 02/15/24 06/09/24 clonazepam 0.5 mg tablet 0.5 mg PO 05/28/24 06/09/24 Allergies Allergy/AdvReac Type Severity Reaction Status Date / Time No Known Allergies Allergy Verified 06/09/24 08:54 [facility] ED PFS: Medical History Hyperlipemia, mixed Acute renal failure Acute kidney injury superimposed on CKD Acute hyponatremia Hyponatremia Anemia Hypervolemia Tobacco abuse Diabetes Social History Smoking and tobacco/nicotine status: unknown if used tobacco/nicotine Course Vital Signs: Vital signs: Vital Signs Temperature 97.9 F 09/04/24 10:38 Pulse Rate 65 09/04/24 13:00 Respiratory Rate 16 09/04/24 10:38 Blood Pressure 136/74 09/04/24 13:00 Pulse Oximetry 100 09/04/24 13:00 Oxygen Delivery Me thod Room Air 09/04/24 10:38 MDM - Syncope Medical Decision Making Patient presents here with a syncopal event today he has been well-appearing here blood pressures been normal head CT was normal he had a fall a week ago x-ray does show a proximal fibula fracture we will get him follow-up with orthopedics he is not on ambulatory as is and uses a wheelchair. Medical Records I reviewed the patient's medical records. Lab Data I reviewed the patient's lab results. 09/04/24 11:43 09/04/24 11:43 Radiology Impressions Chest X-Ray 09/04/24 10:41 IMPRESSION: Cardiomegaly. Presumed interval minimal atelectasis in the lower lungs, otherwise the chest is unchanged. Head CT 09/04/24 10:41 IMPRESSION: 1. No evidence of intracranial hemorrhage or mass effect. 2. Small vessel changes advanced for patient this age. This be followed up with MRI on an elective basis. 3. No acute intracranial findings. Hip/Pelvis X-Ray 09/04/24 10:41 IMPRESSION: No acute findings. Knee X-Ray 09/04/24 10:41 IMPRESSION: Fracture of the proximal fibula, age of this fracture is uncertain. Laboratory Results WBC 6.71 10^3/uL (3.29-11.43) 09/04/24 11:43 RBC 3.38 10^6/uL (3.85-5.65) L 09/04/24 11:43 Hgb 10.60 g/dL (11.27-16.99) L 09/04/24 11:43 Hct 33.6 % (37-53) L 09/04/24 11:43 MCV 99.4 fl (82-101) 09/04/24 11:43 MCH 31.4 pg (27-33) 09/04/24 11:43 MCHC 31.5 g/dL (30-55) 09/04/24 11:43 RDW 14.6 % (12.1-15.1) 09/04/24 11:43 Plt Count 256 10^3/cmm (157-399) 09/04/24 11:43 MPV 9.4 fL (7.4-10.4) 09/04/24 11:43 Neut % (Auto) 76.4 % 09/04/24 11:43 Lymph % (Auto) 13.4 % 09/04/24 11:43 [place] % (Auto) 8.6 % 09/04/24 11:43 Eos % (Auto) 0.6 % 09/04/24 11:43 Baso % (Auto) 0.4 % 09/04/24 11:43 Neut # (Auto) 5.12 10^3/uL (1.8-7.7) 09/04/24 11:43 Lymph # (Auto) 0.9 10^3/uL (0.8-4.8) 09/04/24 11:43 [place] # (Auto) 0.6 10^3/uL (0.2-0.9) 09/04/24 11:43 Eos # (Auto) 0.0 10^3/uL (0.0-0.8) 09/04/24 11:43 Baso # (Auto) 0.0 10^3/uL (0.0-0.1) 09/04/24 11:43 Nucleated RBC % (auto) 0 % 09/04/24 11:43 Nucleated RBCs # 0.0 /100WBC 09/04/24 11:43 Sodium 131 mmol/L (136-145) L 09/04/24 11:43 Potassium 4.2 mmol/L (3.5-5.1) 09/04/24 11:43 Chloride 96 mmol/L (98-107) L 09/04/24 11:43 Carbon Dioxide 24 mmol/L (22-29) 09/04/24 11:43 Anion Gap 15.2 (5-19) 09/04/24 11:43 BUN 16 mg/dL (6-20) 09/04/24 11:43 Creatinine 3.1 mg/dL (0.7-1.2) H 09/04/24 11:43 GFR Calculation 25.4 mL/min (90-130) L 09/04/24 11:43 Glucose 135 mg/dL (65-115) H 09/04/24 11:43 Calculated Osmolality 275 mOsm/kg (285-295) L 09/04/24 11:43 Calcium 8.8 mg/dL (8.5-10.5) 09/04/24 11:43 Total Bilirubin 0.5 mg/dL (0.15-1.2) 09/04/24 11:43 AST 19 U/L (0-40) 09/04/24 11:43 ALT 9 U/L (0-41) 09/04/24 11:43 Alkaline Phosphatase 81 U/L (40-130) 09/04/24 11:43 Total Protein 6.7 g/dL (6.6-8.7) 09/04/24 11:43 Albumin 3.8 g/dL (3.5-5.2) 09/04/24 11:43 Globulin 2.9 g/dL (1.3-4.6) 09/04/24 11:43 All radiology interpretation(s) finalized by discharge EKG Data EKG 1: I personally reviewed and interpreted this EKG as follows: EKG interpretation date: 09/04/24 EKG interpretation time: 11:35 Interpretation: nsr hr [address] elevation qrs 131 qtc 458 Discharge Plan Discharge Patient Disposition: Home Clinical Impression: Syncope, Closed fracture of fibula, proximal, left Condition: Stable Prescriptions: No Action isosorbide mononitrate 60 mg tablet extended release 24 hr 60 mg PO DAILY@09 (DME) OneTouch Ultra Test Strip See Rx Instructions .ROUTE .MEDSUPPLY Qty: 10 Rx Instructions: As directed (DME) pen needle, diabetic [TechLITE Pen Needle] 31 gauge x 5/16 needle See Rx Instructions .ROUTE .MEDSUPPLY Qty: 1200 Rx Instructions: As directed (DME) lancets [TRUEplus Lancets] 33 gauge misc See Rx Instructions .ROUTE .MEDSUPPLY Qty: 100 Rx Instructions: As directed clonazepam 0.5 mg tablet 0.5 mg PO hydrocodone-acetaminophen 7.5-325 mg tablet 1 tab PO Q6H PRN (Reason: Pain (Scale Score 7-10)) carvedilol 25 mg Tablet 25 mg PO BID@,21 Rx Instructions: must administer with a meal/food. Hold if systolic BP is below 90 or diastolic BP below 60. atorvastatin 10 mg Tablet 10 mg PO BEDTIME@21 carbamazepine 200 mg Tablet 200 mg PO TID@,,21 amlodipine 10 mg Tablet 10 mg PO DAILY@09 ferrous sulfate 325 mg (65 mg iron) Tablet 325 mg PO DAILY@09 benztropine 1 mg Tablet 1 mg PO BID@ acetaminophen [Tylenol] 325 mg Capsule 650 mg PO Q4H PRN (Reason: Pain) Hold Instructions: Resume on 02/03/24. multivitamin with folic acid [Daily-Sean (with folic acid)] 400 mcg tablet 1 tab PO DAILY@09 gabapentin 300 mg capsule 300 mg PO DAILY@09 trazodone 100 mg tablet 100 mg PO BEDTIME@ aripiprazole 15 mg tablet 15 mg PO DAILY@09 insulin aspart U-100 [Novolog FlexPen U-100 Insulin] 100 unit/mL (3 mL) insulin pen See Rx Instructions .ROUTE .COMPLEX Rx Instructions: sliding scale subcutaneously tid Eucerin Cream 1 applic TOPICAL DAILY PRN (Reason: unknown) lurasidone [Latuda] 120 mg tablet 60 mg PO BID@, magnesium oxide 400 mg magnesium tablet 400 mg PO TID@,, naloxone [Narcan] 4 mg/actuation spray,non-aerosol 1 spray INTRANASAL PRN PRN (Reason: Opioid Reversal) hydralazine 25 mg tablet 25 mg PO QID metoclopramide HCl 10 mg tablet 10 mg PO Q8H PRN (Reason: Nausea) aspirin 325 mg tablet,delayed release (DR/EC) 325 mg PO DAILY fenofibrate 160 mg tablet 160 mg PO DAILY Discharge Orders: Discharge ED (Routine); Ordered 09/04/24 Ordered By: Oneida De Anda Referrals: Ahsan Gilliam MD [Primary Care Provider] - Praveena Lujan MD [Physician] - 4-7 days Discharge Diet: Advance as tolerated Discharge Activity: Limit activity as instructed and Use walker/crutches as instructed Patient Instructions: Leg Fracture (ED) Coding Level of Care Code ED Senior Pharmacy Technician for Maria R Garrison
[2024-09-04 11:49] LABS: Basophils % 0.4 %; Eosinophils % 0.6 %; Hematocrit 33.6 % (37-53); Lymphocytes # 0.9 10^3/uL (0.8-4.8); Lymphocytes % 13.4 %; Mean Corpuscular HGB Conc 31.5 g/dL (30-55); Mean Corpuscular Hemoglobin 31.4 pg (27-33); Mean Corpuscular Volume 99.4 fl (82-101); Mean Platelet Volume 9.4 fL (7.4-10.4); Monocytes # 0.6 10^3/uL (0.2-0.9); Monocytes % 8.6 %; Neutrophils # 5.12 10^3/uL (1.8-7.7); Neutrophils % 76.4 %; Nucleated Red Blood Cells % 0 %; Platelet Count 256 10^3/cmm (157-399); Red Blood Count 3.38 10^6/uL (3.85-5.65); Red Cell Distribution Width 14.6 % (12.1-15.1); White Blood Count 6.71 10^3/uL (3.29-11.43)
[2024-09-04 12:15] VITALS: BP 132/81; PULSE 68; O2SAT 100
[2024-09-04 12:15] LABS: Alanine Aminotransferase 9 U/L (0-41); Albumin Level 3.8 g/dL (3.5-5.2); Alkaline Phosphatase 81 U/L (40-130); Anion Gap 15.2 (5-19); Aspartate Amino Transferase 19 U/L (0-40); Blood Urea Nitrogen 16 mg/dL (6-20); Calcium 8.8 mg/dL (8.5-10.5); Carbon Dioxide 24 mmol/L (22-29); Chloride 96 mmol/L (98-107); Globulin 2.9 g/dL (1.3-4.6); Glomerular Filtration Rate 25.4 mL/min (90-130); Glucose 135 mg/dL (65-115); Osmolality Calculated 275 mOsm/kg (285-295); Potassium 4.2 mmol/L (3.5-5.1); Sodium 131 mmol/L (136-145); Total Bilirubin 0.5 mg/dL (0.15-1.2); Total Protein 6.7 g/dL (6.6-8.7)
[2024-09-04 12:28] VITALS: BP 132/81; BP 141/64; PULSE 66; PULSE 67
[2024-09-04 13:00] VITALS: BP 136/74; PULSE 65; O2SAT 100
[2024-09-04 13:57] VITALS: BP 152/74; PULSE 71; O2SAT 99
== END 2024-09-04 14:05 | disposition home or self-care (01) ==
PROVIDERS: Emergency Provider Emergency Medicine; PCP Family Medicine
DX: R55 Syncope and collapse (principal); S82.492A Other fracture of shaft of left fibula, initial encounter for closed fracture; W19.XXXA Unspecified fall, initial encounter; E11.22 Type 2 diabetes mellitus with diabetic chronic kidney disease; N18.9 Chronic kidney disease, unspecified; E78.5 Hyperlipidemia, unspecified; Z79.82 Long term (current) use of aspirin
CPT/HCPCS: 36415; 70450; 71045; 73502; 73562; 80053; 85025; 93005; 99284

== ENCOUNTER → 2024-09-08 09:32 | Outpatient (BNVA) | payer MEDICAID, SELFPAY | PROVIDERS: PCP Family Medicine; Referring Provider Emergency Medicine; Visit Provider Nurse Practitioner | DX: S82.832P Other fracture of upper and lower end of left fibula, subsequent encounter for closed fracture with malunion; S82 Fracture of lower leg, including ankle; X58.XXXD Exposure to other specified factors, subsequent encounter | CPT/HCPCS: 73590; 99204 ==

== ENCOUNTER → 2024-09-17 09:50 | Outpatient (BNVA) | payer MEDICAID, SELFPAY | PROVIDERS: PCP Family Medicine; Visit Provider Podiatrist Foot & Ankle Surgery | DX: L60.3 Nail dystrophy (principal); N18.6 End stage renal disease; G62.9 Polyneuropathy, unspecified; E11.42 Type 2 diabetes mellitus with diabetic polyneuropathy; Z79.4 Long term (current) use of insulin | CPT/HCPCS: 11721 ==

== ENCOUNTER → 2024-09-26 09:08 | Outpatient (BNVA) | payer MEDICAID, SELFPAY | PROVIDERS: PCP Family Medicine; Visit Provider Internal Medicine | DX: I12.9 Hypertensive chronic kidney disease with stage 1 through stage 4 chronic kidney disease, or unspecified chronic kidney disease (principal); E11.22 Type 2 diabetes mellitus with diabetic chronic kidney disease; N18.9 Chronic kidney disease, unspecified; Z72.0 Tobacco use; Z79.4 Long term (current) use of insulin | CPT/HCPCS: 99213 ==

== ENCOUNTER 2024-10-17 22:57 | Emergency (ER) | payer MEDICAID, SELFPAY ==
[2024-10-17 23:07] VITALS: BP 167/64; PULSE 78; RESP 18; TEMP 37.1; O2SAT 100; BMI 20.7
--- NOTE | 2024-10-17 23:09 | CTR_ITS ---
PROCEDURE INFORMATION: Exam: CT Head Without Contrast Exam date and time: 10/17/2024 11:18 PM Age: 54 years old Clinical indication: Injury or trauma; Blunt trauma (contusions or hematomas); Patient HX: EMS arrival for fall at home with head strike. ; Additional info: Fall head pain TECHNIQUE: Imaging protocol: Computed tomography of the head without contrast. Radiation optimization: All CT scans at this facility use at least one of these dose optimization techniques: automated exposure control; mA and/or kV adjustment per patient size (includes targeted exams where dose is matched to clinical indication); or iterative reconstruction. COMPARISON: CT head wo con* [id number] 09/04/2024 12:00 PM RADIATION DOSE METRICS: Total DLP (mGy-cm): 1617 FINDINGS: Brain: Normal. No hemorrhage. Unremarkable white matter. No mass effect. Cerebral ventricles: No ventriculomegaly. Paranasal sinuses: Thickening is seen ethmoidal sinuses. Mastoid air cells: Visualized mastoid air cells are well aerated. Bones: Unremarkable. No acute fracture. Soft tissues: Unremarkable. CT/CT head wo con* [id number] IMPRESSION: There are no acute intracranial findings.
[2024-10-17 23:14] LABS: Glucose Point of Care 68 mg/dL (70-110)
[2024-10-17 23:43] LABS: Eosinophils # 0.1 10^3/uL (0.0-0.8); Eosinophils % 2.3 %; Hematocrit 34.1 % (37-53); Lymphocytes % 31.9 %; Mean Corpuscular HGB Conc 32.3 g/dL (30-55); Mean Corpuscular Hemoglobin 30.2 pg (27-33); Mean Corpuscular Volume 93.7 fl (82-101); Mean Platelet Volume 9.5 fL (7.4-10.4); Monocytes # 0.4 10^3/uL (0.2-0.9); Monocytes % 12.1 %; Neutrophils # 1.61 10^3/uL (1.8-7.7); Neutrophils % 52.4 %; Nucleated Red Blood Cells % 0 %; Platelet Count 196 10^3/cmm (157-399); Red Blood Count 3.64 10^6/uL (3.85-5.65); Red Cell Distribution Width 14.8 % (12.1-15.1); White Blood Count 3.07 10^3/uL (3.29-11.43)
[2024-10-18 00:08] LABS: Alanine Aminotransferase 12 U/L (0-41); Albumin Level 3.9 g/dL (3.5-5.2); Alkaline Phosphatase 67 U/L (40-130); Anion Gap 11.3 (5-19); Aspartate Amino Transferase 28 U/L (0-40); Blood Urea Nitrogen 5 mg/dL (6-20); Calcium 9.1 mg/dL (8.5-10.5); Carbon Dioxide 29 mmol/L (22-29); Chloride 101 mmol/L (98-107); Globulin 2.9 g/dL (1.3-4.6); Glomerular Filtration Rate 37.8 mL/min (90-130); Glucose 78 mg/dL (65-115); Osmolality Calculated 280 mOsm/kg (285-295); Potassium 4.3 mmol/L (3.5-5.1); Sodium 137 mmol/L (136-145); Total Bilirubin 0.4 mg/dL (0.15-1.2); Total Protein 6.8 g/dL (6.6-8.7)
--- NOTE | 2024-10-18 00:20 | ED_ITS ---
HPI - Altered Mental Status 2 General: Chief Complaint: Altered Mental Status Stated Complaint: AMS Time Seen by Provider: 10/17/24 23:09 History of Present Illness: Patient presents to the ER after a fall off his commode. EMS states he had altered mental status and a low blood sugar. Patient is well-known to the ER. Patient's blood sugar upon arrival was 78. Patient appears to be alert oriented as he is normal. Patient does state he has some mild head pain. Related Data Home Medications Medication Instructions Recorded Confirmed amlodipine 10 mg tablet 10 mg PO DAILY@03/30/23 09/26/24 atorvastatin 10 mg tablet 10 mg PO BEDTIME@03/30/23 09/26/24 benztropine 1 mg tablet 1 mg PO BID@,03/30/23 09/26/24 carbamazepine 200 mg tablet 200 mg PO TID@,,03/30/23 09/26/24 carvedilol 25 mg tablet 25 mg PO BID@,03/30/23 09/26/24 multivitamin with folic acid 400 1 tab PO DAILY@03/30/23 09/26/24 mcg tablet (Daily-Sean (with folic acid)) isosorbide mononitrate 60 mg 60 mg PO DAILY@07/18/23 09/26/24 tablet,extended release 24 hr blood sugar diagnostic (OneTouch #10 ea 09/26/23 09/17/24 Ultra Test strips) lancets 33 gauge (TRUEplus Lancets) #100 ea 09/26/23 09/17/24 pen needle, diabetic 31 gauge x #1,200 ea 09/26/23 09/17/24 5/16 (TechLITE Pen Needle) gabapentin 300 mg capsule 300 mg PO DAILY@10/24/23 09/26/24 aripiprazole 15 mg tablet 15 mg PO DAILY@12/07/23 09/26/24 insulin aspart U-100 100 unit/mL See Rx Instructions .Route .COMPLEX 12/07/23 09/26/24 (3 mL) subcutaneous pen (Novolog FlexPen U-100 Insulin aspart) lanolin alcohols-mineral 1 applic topical DAILY PRN unknown 12/07/23 09/26/24 oil-w.petrolatum-ceresin topical cream (Eucerin topical cream) lurasidone 120 mg tablet (Latuda) 60 mg PO BID@12/07/23 09/26/24 naloxone 4 mg/actuation nasal 1 spray intranasal PRN PRN Opioid 01/30/24 09/26/24 spray (Narcan) Reversal hydralazine 25 mg tablet 25 mg PO QID 01/31/24 09/26/24 aspirin 325 mg tablet,delayed 325 mg PO DAILY 02/15/24 09/26/24 release fenofibrate 160 mg tablet 160 mg PO DAILY 02/15/24 09/26/24 acetaminophen 325 mg tablet 650 mg PO QID PRN Pain 09/04/24 09/26/24 (Tylenol) clonazepam 0.5 mg tablet See Rx Instructions .Route .COMPLEX 09/04/24 09/26/24 famotidine 20 mg tablet 20 mg PO BID 09/04/24 09/26/24 hydrocodone 5 mg-acetaminophen 325 1 tab PO DAILY 09/04/24 09/26/24 mg tablet lisinopril 20 mg tablet 20 mg PO BEDTIME 09/04/24 09/26/24 loperamide 2 mg tablet See Rx Instructions .Route 09/04/24 09/26/24 .COMPLEX PRN Diarrhea Allergies Allergy/AdvReac Type Severity Reaction Status Date / Time No Known Allergies Allergy Verified 09/26/24 09:28 Review of Systems 2 General: Reports: 10 or more systems reviewed and unremarkable except in HPI and below PFSH ED 2 PFSH: Medical History Hyperlipemia, mixed Acute renal failure Acute kidney injury superimposed on CKD Acute hyponatremia Hyponatremia Anemia Hypervolemia Tobacco abuse Diabetes Social History Smoking and tobacco/nicotine status: current every day tobacco/nicotine user Physical Exam 2 Const: COMMON NORMALS: no acute distress, average body habitus, healthy appearing, alert and well nourished HENMT: COMMON NORMALS: normocephalic, atraumatic, hearing grossly normal bilaterally, external ears normal, Normal external nose present and moist oral mucous membranes HEAD & SCALP: normocephalic and atraumatic NOSE: Normal external nose present EXTERNAL EAR: Yes external ears normal Neck/C-Spine: COMMON NORMALS: full ROM, no lymphadenopathy, supple, no meningeal signs, no JVD and Thyroid normal THYROID: Thyroid normal Chest: COMMONS NORMALS: normal inspection of the chest and normal palpation of entire chest wall Resp: COMMON NORMALS: normal respiratory effort, No retractions, No use of accessory muscles and clear to auscultation bilaterally AUSCULTATION: clear to auscultation bilaterally Cardio: COMMON NORMALS: no JVD, regular rate, regular rhythm, S1 normal heart sound present, S2 normal heart sound present, No gallops present (Cardio), No clicks present (Cardio), No murmurs present (Cardio) and No rub (Cardio) R ATE: regular rate RHYTHM: regular rhythm HEART SOUNDS: S1 normal heart sound present and S2 normal heart sound present GI: COMMON NORMALS: Normal to inspection, nondistended, normoactive bowel sounds present, Soft to palpation, non-tender, No hepatosplenomegaly present and no masses PALPATION: Yes Soft to palpation and Yes No hepatosplenomegaly present Neuro: SENSORIUM/ORIENTATION: Yes alert MENINGEAL SIGNS: Yes no meningeal signs Course 2 Vital Signs: Vital signs: Vital Signs Temperature 98.7 F 10/17/24 23:07 Pulse Rate 81 10/18/24 02:03 Respiratory Rate 18 10/17/24 23:07 Blood Pressure 175/75 10/18/24 02:03 Pulse Oximetry 99 10/18/24 02:03 Oxygen Delivery Me thod Room Air 10/17/24 23:07 MDM - Altered Mental Status Medical Decision Making Lab work was obtained as well as head CT, all of which was essentially benign and stable for this patient. Patient is alert and oriented per his normal. Patient be discharged home. Medical Records I reviewed the patient's medical records. Lab Data I reviewed the patient's lab results. 10/17/24 23:37 10/17/24 23:[address] 10/17/24 23:09 IMPRESSION: There are no acute intracranial findings. Laboratory Results WBC 3.07 10^3/uL (3.29-11.43) L 10/17/24 23:37 RBC 3.64 10^6/uL (3.85-5.65) L 10/17/24 23:37 Hgb 11.00 g/dL (11.27-16.99) L 10/17/24 23:37 Hct 34.1 % (37-53) L 10/17/24 23:37 MCV 93.7 fl (82-101) 10/17/24 23:37 MCH 30.2 pg (27-33) 10/17/24 23:37 MCHC 32.3 g/dL (30-55) 10/17/24 23:37 RDW 14.8 % (12.1-15.1) 10/17/24 23:37 Plt Count 196 10^3/cmm (157-399) 10/17/24 23:37 MPV 9.5 fL (7.4-10.4) 10/17/24 23:37 Neut % (Auto) 52.4 % 10/17/24 23:37 Lymph % (Auto) 31.9 % 10/17/24 23:37 [place] % (Auto) 12.1 % 10/17/24 23:37 Eos % (Auto) 2.3 % 10/17/24 23:37 Baso % (Auto) 1.0 % 10/17/24 23:37 Neut # (Auto) 1.61 10^3/uL (1.8-7.7) L 10/17/24 23:37 Lymph # (Auto) 1.0 10^3/uL (0.8-4.8) 10/17/24 23:37 [place] # (Auto) 0.4 10^3/uL (0.2-0.9) 10/17/24 23:37 Eos # (Auto) 0.1 10^3/uL (0.0-0.8) 10/17/24 23:37 Baso # (Auto) 0.0 10^3/uL (0.0-0.1) 10/17/24 23:37 Nucleated RBC % (auto) 0 % 10/17/24 23:37 Nucleated RBCs # 0.0 /100WBC 10/17/24 23:37 Sodium 137 mmol/L (136-145) 10/17/24 23:37 Potassium 4.3 mmol/L (3.5-5.1) 10/17/24 23:37 Chloride 101 mmol/L (98-107) 10/17/24 23:37 Carbon Dioxide 29 mmol/L (22-29) 10/17/24 23:37 Anion Gap 11.3 (5-19) 10/17/24 23:37 BUN 5 mg/dL (6-20) L 10/17/24 23:37 Creatinine 2.2 mg/dL (0.7-1.2) H 10/17/24 23:37 GFR Calculation 37.8 mL/min (90-130) L 10/17/24 23:37 Glucose 78 mg/dL (65-115) 10/17/24 23:37 POC Glucose 68 mg/dL (70-110) L 10/17/24 23:09 Calculated Osmolality 280 mOsm/kg (285-295) L 10/17/24 23:37 Calcium 9.1 mg/dL (8.5-10.5) 10/17/24 23:37 Total Bilirubin 0.4 mg/dL (0.15-1.2) 10/17/24 23:37 AST 28 U/L (0-40) 10/17/24 23:37 ALT 12 U/L (0-41) 10/17/24 23:37 Alkaline Phosphatase 67 U/L (40-130) 10/17/24 23:37 Total Protein 6.8 g/dL (6.6-8.7) 10/17/24 23:37 Albumin 3.9 g/dL (3.5-5.2) 10/17/24 23:37 Globulin 2.9 g/dL (1.3-4.6) 10/17/24 23:37 All radiology interpretation(s) finalized by discharge Discharge Plan Discharge Patient Disposition: Home Clinical Impression: Fall, Contusion of head, Acute alteration in mental status Condition: Stable Prescriptions: No Action isosorbide mononitrate 60 mg tablet extended release 24 hr 60 mg PO DAILY@09 (DME) OneTouch Ultra Test Strip See Rx Instructions .ROUTE .MEDSUPPLY Qty: 10 Rx Instructions: As directed (DME) pen needle, diabetic [TechLITE Pen Needle] 31 gauge x 5/16 needle See Rx Instructions .ROUTE .MEDSUPPLY Qty: 1200 Rx Instructions: As directed (DME) lancets [TRUEplus Lancets] 33 gauge misc See Rx Instructions .ROUTE .MEDSUPPLY Qty: 100 Rx Instructions: As directed carvedilol 25 mg Tablet 25 mg PO BID@,21 Rx Instructions: must administer with a meal/food. Hold if systolic BP is below 90 or diastolic BP below 60. atorvastatin 10 mg Tablet 10 mg PO BEDTIME@21 carbamazepine 200 mg Tablet 200 mg PO TID@,, amlodipine 10 mg Tablet 10 mg PO DAILY@ benztropine 1 mg Tablet 1 mg PO BID@, multivitamin with folic acid [Daily-Sean (with folic acid)] 400 mcg tablet 1 tab PO DAILY@09 gabapentin 300 mg capsule 300 mg PO DAILY@09 aripiprazole 15 mg tablet 15 mg PO DAILY@09 insulin aspart U-100 [Novolog FlexPen U-100 Insulin] 100 unit/mL (3 mL) insulin pen See Rx Instructions .ROUTE .COMPLEX Rx Instructions: sliding scale subcutaneously tid Eucerin Cream 1 applic TOPICAL DAILY PRN (Reason: unknown) lurasidone [Latuda] 120 mg tablet 60 mg PO BID@ naloxone [Narcan] 4 mg/actuation spray,non-aerosol 1 spray INTRANASAL PRN PRN (Reason: Opioid Reversal) hydralazine 25 mg tablet 25 mg PO QID aspirin 325 mg tablet,delayed release (DR/EC) 325 mg PO DAILY fenofibrate 160 mg tablet 160 mg PO DAILY famotidine 20 mg tablet 20 mg PO BID acetaminophen [Tylenol] 325 mg Tablet 650 mg PO QID PRN (Reason: Pain) hydrocodone-acetaminophen 5-325 mg tablet 1 tab PO DAILY lisinopril 20 mg tablet 20 mg PO BEDTIME clonazepam 0.5 mg tablet See Rx Instructions .ROUTE .COMPLEX Rx Instructions: TAKE 1 TABLET BY MOUTH DAILY before dialysis ON SUNDAY, loperamide 2 mg Tablet See Rx Instructions .ROUTE .COMPLEX PRN (Reason: Diarrhea) Rx Instructions: take 2 tablets (4 mg) orally as needed at onset of diarrhea may repeat with each loose stool until symptoms controlled; do not exceed 8 mg per 24 hrs Discharge Orders: Discharge ED (Routine); Ordered 10/18/24 Ordered By: Heladio Anthony Referrals: Ahsan Gilliam MD [Primary Care Provider] - 1 week Patient Instructions: Altered Mental Status (ED) Activity Restrictions/Additional Instructions: Thank you for choosing [facility] for your healthcare needs today. Please realize that you were seen in the emergency department and that we are providing you with an emergency medical screening exam and this may not be a complete and all exclusive of all testing and/or medical workup we may need to determine your element or severity of your illness. It is very important that you follow-up as instructed with your primary care provider or specialist for the additional evaluation and to discuss your medical treatment plan. You may return to the emergency department should you have concerns or if your condition changes or worsens in any way. Coding Level of Care Code ED Mining Manager for [facility] R Garrison
[2024-10-18 02:03] VITALS: BP 175/75; PULSE 81; O2SAT 99
[2024-10-18 02:34] LABS: Glucose Point of Care 69 mg/dL (70-110)
[2024-10-18 02:55] VITALS: BP 169/74; PULSE 82; O2SAT 100
== END 2024-10-18 03:01 | disposition home or self-care (01) ==
PROVIDERS: Emergency Provider Emergency Medicine; PCP Family Medicine
DX: S00.93XA Contusion of unspecified part of head, initial encounter (principal); W19.XXXA Unspecified fall, initial encounter; R41.82 Altered mental status, unspecified; Z79.4 Long term (current) use of insulin; Z79.82 Long term (current) use of aspirin; Z72.0 Tobacco use; E78.2 Mixed hyperlipidemia; E11.9 Type 2 diabetes mellitus without complications
CPT/HCPCS: 36415; 36416; 70450; 80053; 82962; 85025; 99284

== ENCOUNTER → 2024-11-26 10:42 | Outpatient (BNVA) | payer MEDICAID, SELFPAY | PROVIDERS: PCP Family Medicine; Visit Provider Internal Medicine | DX: E78.2 Mixed hyperlipidemia (principal); N18.6 End stage renal disease | CPT/HCPCS: 99214 ==

== ENCOUNTER 2024-12-07 06:17 | Inpatient (IN) | payer MEDICAID, SELFPAY ==
[2024-12-07] VITALS (66 sets, daily range): BP systolic 75–216; BP diastolic 44–100; PULSE 45–80; RESP 0–24; TEMP 34.7–35.7; O2SAT 77–100; BMI 20.2; BMI 18.8
[2024-12-07 06:27] LABS: ABG PH Result 7.27 (7.35-7.45); Alveolar-Arterial Oxygen Gradi 5.3 mmHg (5-10); Arterial Blood Gas Hematocrit 48.3 % (42-52); Base Excess ABG 0.5 mmol/L (-2.0-2.0); Blood Gas Sample Site Brachial, right; Blood Gas Sample Type Arterial; HCO3 ABG 29.4 mmol/L (22-26); HGB O2 Sat 50.5 % (95-100); Ionized Calcium Level - ABG 1.3 mmol/L (1.1-1.4); Methemoglobin 0.9 % (0.4-1.5); Oxygen Device NRB; Oxygen Saturation ABG 51.4; PO2 ABG 32.2 mmHg (80.0-100.0); Total Hemoglobin 15.8 g/dL (14-18)
--- NOTE | 2024-12-07 06:38 | PC.NURSE ---
Intubation note 0631 20mg Etomidate 0632 50mg Shar 0633 Intubated with sz 8 24@ the lip 0634 OG PLACED
[2024-12-07] MEDS: propofol 1,000 MG/100 ML INJ 1.87 MG IV (06:44)
--- NOTE | 2024-12-07 06:44 | XRR_ITS ---
PROCEDURE INFORMATION: Exam: XR Chest Exam date and time: 12/07/2024 6:56 AM Age: 54 years old Clinical indication: Device placement; Ett placement (vent status); Shortness of breath; Additional info: SOB, intubation TECHNIQUE: Imaging protocol: Radiologic exam of the chest. Views: 1 view. COMPARISON: CR XR chest 1V portable [id number] 09/04/2024 12:09 PM FINDINGS: Tubes, catheters and devices: The endotracheal tube terminates 3 cm above the kalani. Gastric tube terminates in the stomach, side port at the EG junction. Dialysis catheter enters from the right and terminates near the atriocaval junction. Lungs: Extensive bilateral partially consolidated pulmonary infiltrates, left greater than right. Pleural spaces: Unremarkable. No pleural effusion. No pneumothorax. Heart/Mediastinum: Unremarkable. No cardiomegaly. Bones/joints: Lumbar kyphoplasty. XR/XR chest 1V portable [id number] IMPRESSION: 1. Extensive pneumonia. 2. Intubation.
[2024-12-07] MEDS: rocuronium 10 mg/mL INJ 5mL 50 MG IVP (06:50)
[2024-12-07] MEDS: etomidate 2 mg/mL INJ SDV 10 mL 20 MG IVP (06:50)
--- NOTE | 2024-12-07 07:13 | PC.NURSE ---
Respiratory in room to assist with intubation by Dr Saxena. 20g iv cath to the right forearm, etomidate 20mg and mars 50mg given prior to intubation.
--- NOTE | 2024-12-07 07:20 | ED_ITS ---
HPI - SOB/Dyspnea 2 General: Chief Complaint: Shortness of Breath/Dyspnea Stated Complaint: ams/resp distress Time Seen by Provider: 12/07/24 06:43 History of Present Illness: HPI Narrative: This patient is a 54-year-old male presenting from his long-term residential by ambulance. He has a history of some intellectual disability and is a dialysis patient. On arrival he was nonverbal and patient caregiver provided his history. The caregiver tells me that the patient was not feeling well last night so he sat with the patient. Throughout the night the patient developed a frothy cough that turned into pink color this morning. The caregiver had interacted with the mine administrator supervisor throughout the night and then when he saw the blood in the sputum he called 911. The patient also had some diarrhea at home. The patient dialyzed on Sunday which was 1 day ago, around noon. The caregiver noted that over the past couple of weeks there have been some issues at dialysis with uncertain weights. The patient is wheelchair-bound and so his weight includes the wheelchair. He also has a habit of wearing thick coats and heavy boots when he goes to dialysis during the cold weather. Apparently there has been some question as to how much fluid to take off. Last week the patient had a episode of altered mental status due to too much fluid being taken off. He normally dialyzes on Sunday. This Sunday he did not want to go and so he was rescheduled to Sunday. Caregiver and mine administrator supervisor advised that the patient is a full code. Related Data Home Medications ?Medication ?Instructions ?Recorded ?Confirmed amlodipine 10 mg tablet 10 mg PO DAILY@03/30/23 0 12/07/24 atorvastatin 10 mg tablet 10 mg PO BEDTIME@03/30/23 12/07/24 benztropine 1 mg tablet 1 mg PO BID@,03/30/23 0 12/07/24 carbamazepine 200 mg tablet 200 mg PO TID@,,12/07/24 carvedilol 25 mg tablet 25 mg PO BID@,03/30/23 12/07/24 multivitamin with folic acid 400 1 tab PO DAILY@12/07/24 mcg tablet (Daily-Sean (with folic acid)) blood sugar diagnostic ([facility] 09/26/2312/07 Ultra Test strips) lancets 33 gauge (TRUEplus Lancets) #100 ea 09/26/23 0 12/07/24 pen needle, diabetic 31 gauge x #1,200 ea 09/26/2306/25 5/16 (TechLITE Pen Needle) gabapentin 300 mg capsule 300 mg PO DAILY@09 10/24/23 12/07/24 aripiprazole 15 mg tablet 15 mg PO QPM 12/07/23 lurasidone 120 mg tablet (Latuda) 60 mg PO BID@, 0 12/07/23 12/07/24 naloxone 4 mg/actuation nasal 1 spray intranasal PRN P RN Opioid 01/30/24 12/07/24 spray (Narcan) Reversal aspirin 325 mg tablet,delayed 325 mg PO DAILY 02/15/24 12/07/24 release fenofibrate 160 mg tablet 160 mg PO DAILY 02/15/2406/25 acetaminophen 325 mg tablet 650 mg PO QID PRN Pain 02/2112/07/24 (Tylenol) clonazepam 0.5 mg tablet See Rx Instructions .Route . COMPLEX 09/04/24 12/07/24 famotidine 20 mg tablet 20 mg PO BID 09/04/24 hydrocodone 5 mg-acetaminophen 325 1 tab PO DAILY PRN Pain 09/04/24 12/07/24 mg tablet lisinopril 20 mg tablet 20 mg PO BEDTIME 09/04/24 loperamide 2 mg tablet See Rx Instructions .Route 1 11/05/23 12/07/24 .COMPLEX PRN Diarrhea Chapstick 1 applic topical BID PRN stephanie pped 12/07/24 12/07/24 lips hydralazine 50 mg tablet 50 mg PO QID 12/07/24 insulin aspart U-100 100 unit/mL See Rx Instructions . Route .COMPLEX 12/07/24 12/07/24 (3 mL) subcutaneous pen isosorbide mononitrate 30 mg 60 mg PO DAILY 12/07/24 0 12/07/24 tablet,extended release 24 hr lidocaine 5 % topical patch See Rx Instructions .Route .COMPLEX 12/07/24 12/07/24 menthol 2.5 mg-pectin 7 mg 1 sayda PO Q2H PRN sore throa t or 12/07/24 12/07/24 lozenges (Cough Drops cough (menthol-pectin)) pseudoephedrine-ibuprofen 30 1 tab PO TID PRN [place] on 12/07/24 12/07/24 mg-200 mg tablet trazodone 100 mg tablet 200 mg PO QPM 12/07/2412/07 Allergies Allergy/AdvReac Type Severity Reaction Status Date / Time No Known Allergies Allergy Verified 11/25/24 17:02 [facility] ED 2 PFSH: Medical History Hyperlipemia, mixed Acute renal failure Acute kidney injury superimposed on CKD Acute hyponatremia Hyponatremia Anemia Hypervolemia Tobacco abuse Diabetes Social History Smoking and tobacco/nicotine status: current every day tobacco/nicotine user Physical Exam 2 Const: OTHER: Nonverbal, not really following commands. Moaning. HENMT: HEAD & SCALP: normal to inspection FACE & SINUS: normal facial exam Eye: GENERAL EYE: appearance normal, both eyes and all related structures Neck/C-Spine: COMMON NORMALS: supple Chest: COMMONS NORMALS: normal inspection of the chest OTHER: Dialysis catheter in the right upper chest Resp: OTHER: Increased work of breathing, pink frothy sputum coming out of the mouth. No coughing. Respirations are deep and somewhat slow. Lung sounds with Rales in all lung moraes. Cardio: OTHER: Normal rate and rhythm. Good pulses in all extremities. No murmurs gallops or rubs noted GI: COMMON NORMALS: Normal to inspection, nondistended, normoactive bowel sounds present, Soft to palpation and non-tender INSPECTION: Yes normal to inspection AUSCULTATION: Yes normoactive bowel sounds PALPATION: Yes Soft to palpation Back/Pelvis: COMMON NORMALS: thoracic and lumbar spine normal to inspection Extremity: COMMON NORMALS: normal to inspection Neuro: OTHER: Confused, decreased mental status. Not following commands. Moaning. Skin: COMMON NORMALS: no rashes or lesions noted and turgor normal GENERAL SKIN EXAM: no rashes or lesions noted and turgor normal Procedures ABG Interpretation ABG Interpretation 1: ABG Results: pH 7.2, pO2 in the 30s and pCO2 in the 60s. Intubation Time out performed: Yes sedative: Etomidate Mg Given: 20 paralytic: Rocuronium Mg Given: 50 Laryngoscope: fiber optic video scope ET Tube Size: 8 Tube Secured Depth (cm): 23 Tube Secured Location: teeth Tube Placement Confirmation: visualized tube passing through cords, equal breath sounds bilaterally, no breath sounds over epigastrium and confirmation by capnometry Patient Tolerated Procedure: well Intubation Complications: none Course 2 Vital Signs: Vital signs: Vital Signs Temperature 97.6 F 12/11/24 12:00 Pulse Rate 73 12/11/24 14:30 Respiratory Rate 23 H 12/11/24 14:30 Blood Pressure 164/67 12/11/24 14:30 Pulse Oximetry 99 12/11/24 14:30 Oxygen Delivery Me thod Room Air 12/11/24 14:00 Fraction of Inspir ed Oxygen 12/09/24 08:44 MDM - SOB/Dyspnea Medical Decision Making Patient appeared to be in acute pulmonary edema on arrival. His initial pulse ox was in the 60s. He was placed on a nonrebreather and his pulse ox did come up into the low 90s on in excess of 15 L/min. Once it was determined that he was a full code he was intubated as noted in the procedure note. After intubation his pulse ox was 98 to 100%. Blood pressure remained elevated. Chest x-ray confirmed good tube placement and also significant infiltrates bilaterally in all lung moraes. Based on clinical assessment I think this is fluid although pneumonia is in the differential as well. He was placed on propofol for sedation. I placed an OG tube with direct visualization with the glide scope. Labs are pending and he will be admitted to the ICU for dialysis. Lab Data 12/11/24 04:03 12/11/24 04:03 Labs/Radiology: Radiology Impressions Chest X-Ray 12/07/24 06:44 IMPRESSION: 1. Extensive pneumonia. 2. Intubation. Chest CTA 12/07/24 10:37 IMPRESSION: Severe bilateral infiltrates, pneumonia versus pneumonitis. Head CT 12/07/24 21:59 IMPRESSION: No acute intracranial abnormality. Laboratory Results WBC 7.58 10^3/uL (3.29-11.43) 12/07/24 07:24 RBC 5.07 10^6/uL (3.85-5.65) 12/07/24 07:24 Hgb 15.00 g/dL (11.27-16.99) 12/07/24 07:24 Hct 46.8 % (37-53) 12/07/24 07:24 MCV 92.3 fl (82-101) 12/07/24 07:24 MCH 29.6 pg (27-33) 12/07/24 07:24 MCHC 32.1 g/dL (30-55) 12/07/24 07:24 RDW 16.2 % (12.1-15.1) H 12/07/24 07:24 Plt Count 166 10^3/cmm (157-399) 12/07/24 07:24 MPV 10.5 fL (7.4-10.4) H 12/07/24 07:24 Neut % (Auto) 86.4 % 12/07/24 07:24 Lymph % (Auto) 7.8 % 12/07/24 07:24 [place] % (Auto) 4.7 % 12/07/24 07:24 Eos % (Auto) 0.4 % 12/07/24 07:24 Baso % (Auto) 0.4 % 12/07/24 07:24 Neut # (Auto) 6.55 10^3/uL (1.8-7.7) 12/07/24 07:24 Lymph # (Auto) 0.6 10^3/uL (0.8-4.8) L 12/07/24 07:24 [place] # (Auto) 0.4 10^3/uL (0.2-0.9) 12/07/24 07:24 Eos # (Auto) 0.0 10^3/uL (0.0-0.8) 12/07/24 07:24 Baso # (Auto) 0.0 10^3/uL (0.0-0.1) 12/07/24 07:24 Nucleated RBC % (auto) 0 % 12/07/24 07:24 Nucleated RBCs # 0.0 /100WBC 12/07/24 07:24 Specimen Type Arterial 12/07/24 06:17 Sample Site Brachial, right 12/07/24 06:17 ABG pH 7.27 (7.35-7.45) L 12/07/24 06:17 ABG pCO2 64.2 mmHg (35-45) H* 12/07/24 06:17 ABG pO2 32.2 mmHg (80.0-100.0) L* 12/07/24 06:17 ABG HCO3 29.4 mmol/L (22-26) H 12/07/24 06:17 ABG O2 Saturation 51.4 12/07/24 06:17 ABG Base Excess 0.5 mmol/L (-2.0-2.0) 12/07/24 06:17 Jeff Test N/a 12/07/24 06:17 A-a O2 Gradient 5.3 mmHg (5-10) 12/07/24 06:17 Hematocrit 48.3 % (42-52) 12/07/24 06:17 Hgb O2 Saturation 50.5 % (95-100) L 12/07/24 06:17 Carboxyhemoglobin 1.0 %THgb (0.4-20.1) 12/07/24 06:17 Methemoglobin 0.9 % (0.4-1.5) 12/07/24 06:17 Total Hemoglobin 15.8 g/dL (14-18) 12/07/24 06:17 Sodium 134.0 mmol/L (131-143) 12/07/24 06:17 Potassium 5.0 mmol/L (3.5-5.0) 12/07/24 06:17 Glucose 119.0 mg/dL (70-115) H 12/07/24 06:17 Ionized Calcium 1.3 mmol/L (1.1-1.4) 12/07/24 06:17 O2 Delivery Device Nrb 12/07/24 06:17 O2 Liters/Min 15.0 % 12/07/24 06:17 Electrician Ship ID [email or web address] 12/07/24 06:17 Sodium 129 mmol/L (136-145) L 12/07/24 07:24 Potassium 5.4 mmol/L (3.5-5.1) H 12/07/24 07:24 Chloride 94 mmol/L (98-107) L 12/07/24 07:24 Carbon Dioxide 22 mmol/L (22-29) 12/07/24 07:24 Anion Gap 18.4 (5-19) 12/07/24 07:24 BUN 9 mg/dL (6-20) 12/07/24 07:24 Creatinine 2.0 mg/dL (0.7-1.2) H 12/07/24 07:24 GFR Calculation 42.2 mL/min (90-130) L 12/07/24 07:24 Glucose 149 mg/dL (65-115) H 12/07/24 07:24 Calculated Osmolality 269 mOsm/kg (285-295) L 12/07/24 07:24 Lactic Acid 1.0 mmol/L (0.5-2.2) 12/07/24 07:24 Calcium 9.0 mg/dL (8.5-10.5) 12/07/24 07:24 Total Bilirubin 0.8 mg/dL (0.15-1.2) 12/07/24 07:24 AST 34 U/L (0-40) 12/07/24 07:24 ALT 10 U/L (0-41) 12/07/24 07:24 Alkaline Phosphatase 86 U/L (40-130) 12/07/24 07:24 Troponin T Baseline 79 ng/L (0-15) H 12/07/24 07:24 NT-Pro-B Natriuret Pep 75619 pg/mL (0-125) H 12/07/24 07:24 Total Protein 7.1 g/dL (6.6-8.7) 12/07/24 07:24 Albumin 3.8 g/dL (3.5-5.2) 12/07/24 07:24 Globulin 3.3 g/dL (1.3-4.6) 12/07/24 07:24 Urine Color Yellow (Yellow) 12/07/24 07:24 Urine Appearance Clear (CLEAR) 12/07/24 07:24 Urine pH 8.5 (5-7) A 12/07/24 07:24 Ur Specific [place] 1.008 (1.005-1.030) 12/07/24 07:24 Urine Protein 3+ (Negative) A 12/07/24 07:24 Urine Glucose (UA) Negative (Normal) 12/07/24 07:24 Urine Ketones Negative (Negative) 12/07/24 07:24 Urine Blood Negative (Negative) 12/07/24 07:24 Urine Nitrate Negative (Negative) 12/07/24 07:24 Urine Bilirubin Negative (Negative) 12/07/24 07:24 Urine Urobilinogen 0.2 mg/dL (Negative) 12/07/24 07:24 Ur Leukocyte Esterase Negative (Negative) 12/07/24 07:24 Urine RBC 0-2 /hpf (0-2) 12/07/24 07:24 Urine WBC 0-5 /hpf (0-5) 12/07/24 07:24 Ur Squamous Epith Cells 0-5 /hpf (0-5) 12/07/24 07:24 Amorphous Sediment 1+ /hpf 12/07/24 07:24 Urine Bacteria 1+ /hpf (NONE) H 12/07/24 07:24 Hyaline Casts 0.81 /lpf 12/07/24 07:24 Hep Bs Antigen Non-reactive (Nonreactive) 12/07/24 07:24 Hep Bs Antibody 5.0 (11.5-1000) L 12/07/24 07:24 Hepatitis C Antibody Non-reactive (Nonreactive) 12/07/24 07:24 Influenza A (PCR) Negative (Negative) 12/07/24 08:33 Influenza Type B (PCR) Negative (Negative) 12/07/24 08:33 RSV (PCR) Negative (Negative) 12/07/24 08:33 SARS-CoV-2 (PCR) Negative (Negative) 12/07/24 08:33 All radiology interpretation(s) finalized by discharge Critical Care Time 2 Critical Care Time: Critical Care Time: Yes Total Critical Care Time: 30 Attestation: This case had a high probability of a clinically significant, sudden, or life threatening deterioration of this patient's condition which required my full and direct attention, intervention and personal management. I obtained history from the caregiver and prior records. Discharge Plan Discharge Patient Disposition: Admitted As Inpatient Admit Provider: Lexis Alexander Clinical Impression: ESRD (end stage renal disease), Acute hypoxic respiratory failure, Pulmonary edema, Hyperkalemia Condition: Stable Coding Level of Care Code ED Account Installation Specialist for Maria R Garrison
[2024-12-07 07:32] LABS: Basophils % 0.4 %; Eosinophils % 0.4 %; Hematocrit 46.8 % (37-53); Lymphocytes # 0.6 10^3/uL (0.8-4.8); Lymphocytes % 7.8 %; Mean Corpuscular HGB Conc 32.1 g/dL (30-55); Mean Corpuscular Hemoglobin 29.6 pg (27-33); Mean Corpuscular Volume 92.3 fl (82-101); Mean Platelet Volume 10.5 fL (7.4-10.4); Monocytes # 0.4 10^3/uL (0.2-0.9); Monocytes % 4.7 %; Neutrophils # 6.55 10^3/uL (1.8-7.7); Neutrophils % 86.4 %; Nucleated Red Blood Cells % 0 %; Platelet Count 166 10^3/cmm (157-399); Red Blood Count 5.07 10^6/uL (3.85-5.65); Red Cell Distribution Width 16.2 % (12.1-15.1); White Blood Count 7.58 10^3/uL (3.29-11.43)
[2024-12-07 07:58] LABS: Troponin(5th) Baseline 79 ng/L (0-15)
--- NOTE | 2024-12-07 08:00 | PC.PHAR ---
Pt is with [facility] and has a medication list.
[2024-12-07 08:08] LABS: Albumin Level 3.8 g/dL (3.5-5.2); Alkaline Phosphatase 86 U/L (40-130); Blood Urea Nitrogen 9 mg/dL (6-20); Carbon Dioxide 22 mmol/L (22-29); Chloride 94 mmol/L (98-107); Creatinine Clr Calc Pharmacy 39.7729; Globulin 3.3 g/dL (1.3-4.6); Glomerular Filtration Rate 42.2 mL/min (90-130); Glucose 149 mg/dL (65-115); Osmolality Calculated 269 mOsm/kg (285-295); Sodium 129 mmol/L (136-145); Total Bilirubin 0.8 mg/dL (0.15-1.2); Total Protein 7.1 g/dL (6.6-8.7)
[2024-12-07 08:09] LABS: Anion Gap 18.4 (5-19); Potassium 5.4 mmol/L (3.5-5.1)
[2024-12-07 08:10] LABS: Alanine Aminotransferase 10 U/L (0-41); Aspartate Amino Transferase 34 U/L (0-40)
[2024-12-07 08:15] LABS: Bilirubin Urine Negative (Negative); Blood Urine Negative (Negative); Glucose Urine UA Negative (Normal); Ketones Urine Negative (Negative); Leukocyte Esterase Urine Negative (Negative); Nitrate Urine Negative (Negative); Protein Urine 3+ (Negative); Specific Gravity, Urine 1.008 (1.005-1.030); Urine Appearance Clear (CLEAR); Urine Color Yellow (Yellow); Urobilinogen Urine 0.2 mg/dL (Negative); pH Urine 8.5 (5-7)
[2024-12-07 08:17] LABS: Add Urine Microscopic? YES; Bacteria Urine 1+ /hpf; Hyaline Casts Urine 0.81 /lpf; RBC Urine 0-2 /hpf (0-2); Squamous Epithelial Cell Urine 0-5 /hpf (0-5); WBC Urine 0-5 /hpf (0-5)
[2024-12-07 08:26] LABS: UA Slide Review UA Slide Review Perf
[2024-12-07 08:27] LABS: Amorphous Sediment Urine 1+ /hpf
[2024-12-07 08:30] LABS: NT Pro B Type Natriuretic Pept 45496 pg/mL (0-125)
[2024-12-07 08:37] LABS: ABG PCO2 64.2 mmHg (35-45)
[2024-12-07] MEDS: FUROsemide 10 mg/mL SDV 4mL 40 MG IVP (08:38)
--- NOTE | 2024-12-07 09:14 | ECG_ITS ---
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1970 Requested By: Naa Lynn Order Number: [id number] Reading MD: JONATHAN FALLON Measurements Intervals [place] Rate: 58 P: 32 SD: 204 QRS: -55 QRSD: 122 T: 266 QT: 512 QTc: 506 Interpretive Statements SINUS BRADYCARDIA LEFT ANTERIOR FASCICULAR BLOCK [QRS AXIS <= -45, QR IN I, RS IN II] ST DEVIATION AND MODERATE T-WAVE ABNORMALITY, CONSIDER LATERAL ISCHEMIA [-0.1+ mV T-WAVE IN I/aVL/V5/V6] ST DEVIATION AND MODERATE T-WAVE ABNORMALITY, CONSIDER INFERIOR ISCHEMIA [-0.1+ mV T-WAVE IN II/aVF] Compared to ECG 09/04/2024 11:35:15 Left anterior fascicular block now present T-wave abnormality now present Possible ischemia now present Electronically Signed On 12-08-2024 22:32:40 CDT by JONATHAN FALLON [email or web address] [id number]
[2024-12-07 09:21] LABS: ABG PCO2 41.3 mmHg (35-45); ABG PH Result 7.39 (7.35-7.45); Arterial Blood Gas Hematocrit 46.7 % (42-52); Base Excess ABG -0.1 mmol/L (-2.0-2.0); Blood Gas Allen Test Pos; Blood Gas Operator Identificat GD; Blood Gas Sample Site Radial, right; Blood Gas Sample Type Arterial; Oxygen Device VENT; PO2 FiO2 Ratio Arterial Blood 154
[2024-12-07 09:25] LABS: Influenza A NEGATIVE (Negative); Influenza B NEGATIVE (Negative); Respiratory Syncytial Virus Ce NEGATIVE (Negative); SARS-CoV-2 PCR NEGATIVE (Negative)
[2024-12-07] MEDS: fentaNYL 50 mcg/mL INJ 2mL 25 MCG IVP (09:40)
[2024-12-07] MEDS: fentaNYL 1,000 MCG/100 ML BAG 2.5 MCG IV (09:41)
[2024-12-07 10:20] LABS: Troponin 5 2HR 79.23 ng/L (0-15); Troponin 5 2HR Delta 0.23 ABS# (0-10)
--- NOTE | 2024-12-07 10:30 | USCV_ITS ---
Tyrese Leach Age: 54 Gender: M : 1970 Exam Date: 12/07/2024 12:37 Ordering Phys: Lexis Alexander MD Technologist: Everardo Shetty Exam Location: [facility] [place] Indication: pulmonary edema BP: 127 / 70 HR: 49 Rhythm: Sinus Technical Quality: Adequate MEASUREMENTS (Male / Female) Normal Values 2D ECHO LV Diastolic Diameter PLAX 3.7 cm 4.2 - 5.9 / 3.9 - 5.3 cm IVS Diastolic Thickness 1.4 cm 0.6 - 1.0 / 0.6 - 0.9 cm IVS Systolic Thickness 1.7 cm LVPW Diastolic Thickness 2.3 cm 0.6 - 1.0 / 0.6 - 0.9 cm LVPW Systolic Thickness 2.7 cm LVOT Diameter 2.0 cm LV Ejection Fraction 2D Teich 68.3 % LV Ejection Fraction MOD 4C 71.8 % LV Ejection Fraction MOD 2C 64.6 % LV Ejection Fraction 2C AL 63.9 % LA Diameter 3.5 cm RA Systolic Volume 4C AL 33.3 ml RA Systolic Volume 4C MOD 33.7 ml LA Sys Volume AL 39.8 cm cubed LA Sys Volume Index AL 23.9 cm cubed/m squared Aorta at Sinotubular Diameter 2.1 cm IVC Diameter 2.0 cm M-MODE LA Ao Ratio MM 1.5 AV Cusp Separation MM 2.0 cm DOPPLER AV Peak Velocity 99.0 cm/s LVOT Peak Velocity 71.0 cm/s AV Area Cont Eq vti 2.9 cm squared AV Area Cont Eq pk 2.3 cm squared MV Peak Velocity 60.0 cm/s MV Area PHT 3.1 cm squared Mitral E to A Ratio 1.1 TV Peak Velocity 309.3 cm/s TR Peak Velocity 346.0 cm/s TR Peak Gradient 47.9 mmHg TR Mean Velocity 282.0 cm/s TR Mean Gradient 34.6 mmHg TR Velocity Time Integral 103.4 cm PV Peak Velocity 50.0 cm/s RV Ejection Time 0.4 s FINDINGS Left Ventricle Left ventricle is normal in size. LV systolic function is normal with EF 60-65%. No regional wall motion abnormalities are seen. Severe concentric left ventricular hypertrophy. Grade 2 diastolic dysfunction. Right Ventricle Normal in size and function Right Atrium Normal in size Left Atrium Normal in size Mitral Valve Structurally normal mitral valve.Trace mitral regurgitation. Aortic Valve Structurally normal aortic valve. No significant stenosis or regurgitation. Tricuspid Valve Mild tricuspid regurgitation. Insufficient TR jet to calculate RVSP Pulmonic Valve Mild pulmonic regurgitation. Pericardium Trace pericardial effusion Aorta Normal in size IVC Appears to be normal CONCLUSIONS Left ventricle is normal. LV systolic function is normal with EF of 60-65% Severe concentric left ventricular hypertrophy. Grade 2 diastolic dysfunction. Trace mitral regurgitation. Mild tricuspid regurgitation. Mild pulmonic regurgitation. Trace pericardial effusion Compared to prior echocardiogram from 2022, patient has small sized pericardial effusion and LVH is severe now. Izaiah Reyna MD (Electronically Signed) Final Date: 07 December 2024 21:00 S
--- NOTE | 2024-12-07 10:30 | PM.HP ---
Providers/Chief Complaint Admitting Physician: Lexis Alexander MD Primary Care Provider: Ahsan Gilliam MD Chief Complaint: ams/resp distress History of Present Illness Tyrese Leach is a 54 year old male, [facility], mild intellectual disability(though signs his own consents), chronically wheelchair-bound, history of CKD on dialysis Sunday and Sunday typically. Patient is brought to the emergency room today after he was noted to be acutely short of breath this morning by the [facility] staff. He reportedly also had some hemoptysis, blood-tinged sputum. He was noted to be awake and alert until last evening. When found this morning patient was obtunded and lethargic. His oxygen saturation was in the 70s upon being brought to the emergency room and had respiratory distress. He was intubated in the ER. At the time of my evaluation patient is intubated and sedated. Bedsides suction shows blood-tinged sputum. His aide who was at bedside reports that patient was complaining of feeling unwell on Sunday and therefore missed dialysis on this day. He was taken for dialysis on Sunday and received dialysis as usual. It appears over the past 2 to 3 weeks stable trying to ascertain his current dry weight and the amount of fluid being removed has been variable. He was brought back from dialysis which he tolerated well and was out of spirits however still awake and talking until last night. No history of fever. No history of recent URI type symptoms. Patient was not noted to be coughing or be otherwise sick prior to these events. He did not complain of any chest pain dyspnea palpitations prior to this episode. He has been having some behavioral issues recently for which his psych medications are being titrated. Review of Systems General: Reports: ROS unobtainable due to endotracheal tube Medications/Allergies Home Medications ?Medication ?Instructions ?Recorded ?Confirmed ?Last Taken ?Type amlodipine 10 mg tablet 10 mg PO DAILY@03/30/23 12/07/24 09/04/24 History atorvastatin 10 mg tablet 10 mg PO BEDTIME@03/30/23 12/07/24 09/04/24 History benztropine 1 mg tablet 1 mg PO BID@,03/30/23 12/07/24 09/04/24 History carbamazepine 200 mg tablet 200 mg PO TID@,14,03/30/23 12/07/24 09/04/24 History carvedilol 25 mg tablet 25 mg PO BID@03/30/23 12/07/24 09/04/24 History multivitamin with folic acid 400 1 tab PO DAILY@03/30/23 12/07/24 09/04/24 History mcg tablet (Daily-Sean (with folic acid)) blood sugar diagnostic (OneTouch #10 ea 09/26/23 12/07/24 Unknown History Ultra Test strips) lancets 33 gauge (TRUEplus Lancets) #100 ea 09/26/23 12/07/24 Unknown History pen needle, diabetic 31 gauge x #1,200 ea 09/26/23 12/07/24 Unknown History 02/13 (TechLITE Pen Needle) gabapentin 300 mg capsule 300 mg PO DAILY@10/24/23 12/07/24 09/04/24 History aripiprazole 15 mg tablet 15 mg PO QPM 12/07/23 12/07/24 09/04/24 History lurasidone 120 mg tablet (Latuda) 60 mg PO BID@12/07/23 12/07/24 09/04/24 History naloxone 4 mg/actuation nasal 1 spray intranasal PRN PRN Opioid 01/30/24 12/07/24 02/14/24 History spray (Narcan) Reversal aspirin 325 mg tablet,delayed 325 mg PO DAILY 02/15/24 12/07/24 09/04/24 History release fenofibrate 160 mg tablet 160 mg PO DAILY 02/15/24 12/07/24 09/04/24 History acetaminophen 325 mg tablet 650 mg PO QID PRN Pain 09/04/24 12/07/24 Unknown History (Tylenol) clonazepam 0.5 mg tablet See Rx Instructions .Route .COMPLEX 09/04/24 12/07/24 09/01/24 History famotidine 20 mg tablet 20 mg PO BID 09/04/24 12/07/24 09/04/24 History hydrocodone 5 mg-acetaminophen 325 1 tab PO DAILY PRN Pain 09/04/24 12/07/24 Unknown History mg tablet lisinopril 20 mg tablet 20 mg PO BEDTIME 09/04/24 12/07/24 09/03/24 History loperamide 2 mg tablet See Rx Instructions .Route 09/04/24 12/07/24 Unknown History .COMPLEX PRN Diarrhea Chapstick 1 applic topical BID PRN chapped 12/07/24 12/07/24 Unknown History lips hydralazine 50 mg tablet 50 mg PO QID 12/07/24 12/07/24 Unknown History insulin aspart U-100 100 unit/mL See Rx Instructions .Route .COMPLEX 12/07/24 12/07/24 Unknown History (3 mL) subcutaneous pen isosorbide mononitrate 30 mg 60 mg PO DAILY 12/07/24 12/07/24 Unknown History tablet,extended release 24 hr lidocaine 5 % topical patch See Rx Instructions .Route .COMPLEX 12/07/24 12/07/24 Unknown History menthol 2.5 mg-pectin 7 mg 1 sayda PO Q2H PRN sore throat or 12/07/24 12/07/24 Unknown History lozenges (Cough Drops cough (menthol-pectin)) pseudoephedrine-ibuprofen 30 1 tab PO TID PRN Congestion 12/07/24 12/07/24 Unknown History mg-200 mg tablet trazodone 100 mg tablet 200 mg PO QPM 12/07/24 12/07/24 Unknown History Allergies Allergy/AdvReac Type Severity Reaction Status Date / Time No Known Allergies Allergy Verified 11/25/24 17:02 PFSH Acute PFSH: Medical History Hyperlipemia, mixed Acute renal failure Acute kidney injury superimposed on CKD Acute hyponatremia Hyponatremia Anemia Hypervolemia Tobacco abuse Diabetes Social History Smoking and tobacco/nicotine status: current every day tobacco/nicotine user Vitals/I&O/Wt Last Vital Signs Pulse 66 12/07/24 07:08 Resp 17 12/07/24 09:25 BP 216/100 12/07/24 07:08 Pulse Ox 99 12/07/24 09:25 O2 Del Method Mechanical Ventilation 12/07/24 07:08 FiO2 60 12/07/24 09:25 12/06/24 12/07/24 12/07/24 22:59 07:59 14:59 Intake Total 22.265 / 22.265 Balance 22.265 / 22.265 Weight last 48 hrs Weight 62.4 kg Physical Exam Narrative: General: Intubated sedated HEENT: PERRLA, pupils bilaterally equal and reactive, pallors not present Chest: Coarse crackles to auscultation bilaterally CVS: S1-S2 regular, no murmurs, no tachycardia, no gallops, no rubs Abdomen: Soft, nontender, no organomegaly, bowel sounds present Neuro: No focal deficits, no facial deformity, AO x3, power 5/5 in all limbs Extremities: No edema clubbing or cyanosis Urinary Catheter Management: Ramos: Cath Placed During This Visit: yes Urinary Catheter Date of Insertion: 12/07/24 Urinary Catheter Time of Insertion: 07:07 Data 12/07/24 07:24 12/07/24 07:24 Other data: Radiology Impressions Chest X-Ray 12/07/24 06:44 IMPRESSION: 1. Extensive pneumonia. 2. Intubation. Laboratory Results WBC 7.58 10^3/uL (3.29-11.43) 12/07/24 07:24 RBC 5.07 10^6/uL (3.85-5.65) 12/07/24 07:24 Hgb 15.00 g/dL (11.27-16.99) 12/07/24 07:24 Hct 46.8 % (37-53) 12/07/24 07:24 MCV 92.3 fl (82-101) 12/07/24 07:24 MCH 29.6 pg (27-33) 12/07/24 07:24 MCHC 32.1 g/dL (30-55) 12/07/24 07:24 RDW 16.2 % (12.1-15.1) H 12/07/24 07:24 Plt Count 166 10^3/cmm (157-399) 12/07/24 07:24 MPV 10.5 fL (7.4-10.4) H 12/07/24 07:24 Neut % (Auto) 86.4 % 12/07/24 07:24 Lymph % (Auto) 7.8 % 12/07/24 07:24 [place] % (Auto) 4.7 % 12/07/24 07:24 Eos % (Auto) 0.4 % 12/07/24 07:24 Baso % (Auto) 0.4 % 12/07/24 07:24 Neut # (Auto) 6.55 10^3/uL (1.8-7.7) 12/07/24 07:24 Lymph # (Auto) 0.6 10^3/uL (0.8-4.8) L 12/07/24 07:24 [place] # (Auto) 0.4 10^3/uL (0.2-0.9) 12/07/24 07:24 Eos # (Auto) 0.0 10^3/uL (0.0-0.8) 12/07/24 07:24 Baso # (Auto) 0.0 10^3/uL (0.0-0.1) 12/07/24 07:24 Nucleated RBC % (auto) 0 % 12/07/24 07: Nucleated RBCs # 0.0 /100WBC 12/07/24 07:24 Specimen Type Arterial 12/07/24 09:02 Sample Site Radial, right 12/07/24 09:02 ABG pH 7.39 (7.35-7.45) 12/07/24 09:02 ABG pCO2 41.3 mmHg (35-45) 12/07/24 09:02 ABG pO2 154.0 mmHg (80.0-100.0) H 12/07/24 09:02 ABG PO2/FiO2 Ratio 154 12/07/24 09:02 ABG HCO3 25.0 mmol/L (22-26) 12/07/24 09:02 ABG O2 Saturation 51.4 12/07/24 06:17 ABG Base Excess -0.1 mmol/L (-2.0-2.0) 12/07/24 09:02 Jeff Test Pos 12/07/24 09:02 A-a O2 Gradient 5.3 mmHg (5-10) 12/07/24 06:17 Hematocrit 46.7 % (42-52) 12/07/24 09:02 Hgb O2 Saturation 50.5 % (95-100) L 12/07/24 06:17 Carboxyhemoglobin 1.0 %THgb (0.4-20.1) 12/07/24 06:17 Methemoglobin 0.9 % (0.4-1.5) 12/07/24 06:17 Total Hemoglobin 15.8 g/dL (14-18) 12/07/24 06:17 Sodium 134.0 mmol/L (131-143) 12/07/24 06:17 Potassium 5.0 mmol/L (3.5-5.0) 12/07/24 06:17 Glucose 119.0 mg/dL (70-115) H 12/07/24 06:17 Ionized Calcium 1.3 mmol/L (1.1-1.4) 12/07/24 06:17 O2 Delivery Device Vent 12/07/24 09:02 O2 Liters/Min 15.0 % 12/07/24 06:17 FiO2 100.0 % 12/07/24 09:02 Tidal Volume 0.40 12/07/24 09:02 PEEP 8.0 cmH20 12/07/24 09:02 Regional Guide ID Gd 12/07/24 09:02 Sodium 129 mmol/L (136-145) L 12/07/24 07:24 Potassium 5.4 mmol/L (3.5-5.1) H 12/07/24 07:24 Chloride 94 mmol/L (98-107) L 12/07/24 07:24 Carbon Dioxide 22 mmol/L (22-29) 12/07/24 07:24 Anion Gap 18.4 (5-19) 12/07/24 07:24 BUN 9 mg/dL (6-20) 12/07/24 07:24 Creatinine 2.0 mg/dL (0.7-1.2) H 12/07/24 07:24 GFR Calculation 42.2 mL/min (90-130) L 12/07/24 07:24 Glucose 149 mg/dL (65-115) H 12/07/24 07:24 Calculated Osmolality 269 mOsm/kg (285-295) L 12/07/24 07:24 Lactic Acid 1.0 mmol/L (0.5-2.2) 12/07/24 07:24 Calcium 9.0 mg/dL (8.5-10.5) 12/07/24 07:24 Total Bilirubin 0.8 mg/dL (0.15-1.2) 12/07/24 07:24 AST 34 U/L (0-40) 12/07/24 07:24 ALT 10 U/L (0-41) 12/07/24 07:24 Alkaline Phosphatase 86 U/L (40-130) 12/07/24 07:24 Troponin T Baseline 79 ng/L (0-15) H 12/07/24 07:24 Troponin T 120 Minute 79.23 ng/L (0-15) H 12/07/24 09:58 Delta Troponin T 0.23 ABS# (0-10) 12/07/24 09:58 NT-Pro-B Natriuret Pep 51352 pg/mL (0-125) H 12/07/24 07:24 Total Protein 7.1 g/dL (6.6-8.7) 12/07/24 07:24 Albumin 3.8 g/dL (3.5-5.2) 12/07/24 07:24 Globulin 3.3 g/dL (1.3-4.6) 12/07/24 07:24 Urine Color Yellow (Yellow) 12/07/24 07:24 Urine Appearance Clear (CLEAR) 12/07/24 07:24 Urine pH 8.5 (5-7) A 12/07/24 07:24 Ur Specific [place] 1.008 (1.005-1.030) 12/07/24 07:24 Urine Protein 3+ (Negative) A 12/07/24 07:24 Urine Glucose (UA) Negative (Normal) 12/07/24 07:24 Urine Ketones Negative (Negative) 12/07/24 07:24 Urine Blood Negative (Negative) 12/07/24 07:24 Urine Nitrate Negative (Negative) 12/07/24 07:24 Urine Bilirubin Negative (Negative) 12/07/24 07:24 Urine Urobilinogen 0.2 mg/dL (Negative) 12/07/24 07:24 Ur Leukocyte Esterase Negative (Negative) 12/07/24 07:24 Urine RBC 0-2 /hpf (0-2) 12/07/24 07:24 Urine WBC 0-5 /hpf (0-5) 12/07/24 07:24 Ur Squamous Epith Cells 0-5 /hpf (0-5) 12/07/24 07:24 Amorphous Sediment 1+ /hpf 12/07/24 07:24 Urine Bacteria 1+ /hpf (NONE) H 12/07/24 07:24 Hyaline Casts 0.81 /lpf 12/07/24 07:24 Influenza A (PCR) Negative (Negative) 12/07/24 08:33 Influenza Type B (PCR) Negative (Negative) 12/07/24 08:33 RSV (PCR) Negative (Negative) 12/07/24 08:33 SARS-CoV-2 (PCR) Negative (Negative) 12/07/24 08:33 A&P Assessment and plan (1) Acute hypoxic respiratory failure: (2) Pulmonary edema: (3) ESRD (end stage renal disease): (4) Hyperkalemia: (5) Hypoglycemia: (6) Malignant hypertension: (7) Sinus bradycardia: Plan 54-year-old male resident of [facility], history of CKD on dialysis Sunday, brought to the emergency room today with acute respiratory failure. Patient was hypoxic upon admission with O2 sats of 77%. Needed to be intubated in the emergency room. Additionally had hemoptysis. Symptoms appear to have developed acutely within the last 12 to 24 hours. Chest x-ray showing diffuse bilateral infiltrates concerning for flash pulmonary edema versus ARDS His blood pressure was elevated at 216/100 upon arrival. Possibly malignant hypertension leading to flash pulmonary edema. He received Lasix 40 mg IV in the emergency room. He has had no urine output afterwards. Nephrology is consulted to assess for dialysis today. Respiratory viral panel was negative for influenza RSV and COVID. Alternate differential includes ARDS, bilateral multifocal pneumonia, start meropenem and vancomycin renally dosed while undergoing infectious source evaluation. Meropenem picked as patient is noted to be colonized with ESBL E. coli in the past. CTA to evaluate for PE given acuity of symptoms and hemoptysis. Check stat blood cultures. Urine analysis negative nitrate, negative leukocyte esterase, unlikely UTI. Sputum culture taken in the emergency room, currently pending. Currently sedated with fentanyl and propofol which we will continue. Noted to have sinus bradycardia, blood pressure currently ranging systolics 1 20-1 30 after being initiated on propofol. Will continue his home blood pressure regimen with hydralazine, amlodipine. Hold carvedilol while bradycardic. Check echocardiogram to assess for ejection fraction, diastolic dysfunction. Troponin series with baseline troponin at 79, 2-hour at 79, no significant delta at 2 hours. Will await 6-hour trend. Hypoglycemic upon initial arrival with blood glucose of 68 Insulin to be administered right now for hyperkalemia, alongside of 10% dextrose bolus. Hold all insulin products for now otherwise. DVT prophylaxis: Heparin 5000 subcutaneously every 12 hours Full code PDMP PDMP Reviewed: Not Reviewed Attestations Medical Necessity Statement*: > 2 midnight stay is needed for issues described above Critical Care Time: The high probability of a clinically significant, sudden or life threatening deterioration of the patient's [cardiac, respiratory, renal] system(s) required my full and direct attention, intervention and personal management. The critical care time is as shown. This time is in addition to time spent performing any reported procedures but includes the following: [x] Data and vital sign review and interpretation [x] Patient assessment, examination and intervention [x] Documentation [x] Medication orders and management Critical Care Time (min): 60 Coding Level of Care Code Critical Care >/= 30 minutes Critical care time (in minutes): 60 The high probability of a clinically significant, sudden or life threatening deterioration, as referenced in this documentation, required my full and direct attention, intervention and personal management. The critical care time shown is in addition to time spent performing any reported separately billable procedures and includes the following: [x] Data and vital sign review and interpretation [x] Patient assessment, examination and intervention [x] Medication orders and management [x] Patient/Family updates as able [x] Care Coordination and Documentation. Diagnoses Acute hypoxic respiratory failure J96.01 Pulmonary edema J81.1 ESRD (end stage renal disease) N18.6 Hyperkalemia E87.5 Hypoglycemia E16.2 Malignant hypertension I10 Sinus bradycardia R00.1
--- NOTE | 2024-12-07 10:37 | CTR_ITS ---
PROCEDURE INFORMATION: Exam: CTA Chest With Contrast Exam date and time: 12/07/2024 9:35 PM Age: 54 years old Clinical indication: Dyspnea and shortness of breath and other: Hemoptysis; SOB and dyspnea with hypoxia. Hemoptysis. Intubated with og in place. ; Additional info: Hemoptysis, acute dyspnea TECHNIQUE: Imaging protocol: Computed tomographic angiography of the chest with contrast. Exam focused on the arteries. 3D rendering (Not supervised by radiologist): MIP and/or 3D reconstructed images were created by the technologist. Radiation optimization: All CT scans at this facility use at least one of these dose optimization techniques: automated exposure control; mA and/or kV adjustment per patient size (includes targeted exams where dose is matched to clinical indication); or iterative reconstruction. Contrast material: OMNI 350; Contrast volume: 85 ml; Contrast route: INTRAVENOUS (IV); COMPARISON: CR (CHEST, ) 12/07/2024 6:56 AM RADIATION DOSE METRICS: Total DLP (mGy-cm): 383.12 FINDINGS: Pulmonary arteries: Normal. No pulmonary emboli. Aorta: Unremarkable. No aortic aneurysm. No aortic dissection. Lungs: Severe bilateral groundglass opacities. Small bilateral effusions. Endotracheal tube approximately 3 cm above kalani. Enteric tube stomach. Pleural spaces: Unremarkable. No pneumothorax. No pleural effusion. Heart: Unremarkable. No cardiomegaly. No pericardial effusion. Lymph nodes: Unremarkable. No enlarged lymph nodes. Bones/joints: Unremarkable. No acute fracture. Soft tissues: Unremarkable. CT/CT angio chest PE protcl [id number] IMPRESSION: Severe bilateral infiltrates, pneumonia versus pneumonitis.
[2024-12-07] MEDS: vancomycin 1,250 MG/250 ML PIGGYBACK 166.67 MG IV (12:41)
[2024-12-07] MEDS: heparin 5,000 unit/mL INJ 1 mL 5000 UNIT SUBCUT ×2 (12:41→23:45)
[2024-12-07] MEDS: meropenem 500 mg SDV IVP (12:41)
--- NOTE | 2024-12-07 12:45 | ECG_ITS ---
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: : 1970 Requested By: Naa Lynn Order Number: [id number] Reading MD: JONATHAN FALLON Measurements Intervals [place] Rate: 47 P: 13 PA: 209 QRS: -36 QRSD: 125 T: 269 QT: 585 QTc: 519 Interpretive Statements SINUS BRADYCARDIA LEFT AXIS DEVIATION [QRS AXIS < -30] MODERATE INTRAVENTRICULAR CONDUCTION DELAY [110+ ms QRS DURATION] ST ELEVATION, CONSIDER SEPTAL INJURY [MARKED ST ELEVATION W/O NORMALLY INFLECTED T-WAVE IN V1/V2] PROLONGED QT INTERVAL Compared to ECG 12/07/2024 09:14:27 Left-axis deviation now present Intraventricular conduction delay now present Electronically Signed On 12-08-2024 22:32:02 CDT by JONATHAN FALLON [email or web address]
[2024-12-07 13:01] LABS: Glucose Point of Care 82 mg/dL (70-110)
[2024-12-07] MEDS: insulin regular-human 100 units/1 mL 10 UNIT IVP (13:39)
[2024-12-07] MEDS: calcium gluconate 0.9% NaCL 1 GM/50 ML PREMIX IV (13:39)
[2024-12-07] MEDS: propofol 1,000 MG/100 ML INJ 18.72 MG IV (13:44)
[2024-12-07 14:00] LABS: Troponin 5 6HR 76.47 ng/L (0-15)
[2024-12-07 14:01] LABS: Troponin 5 6HR Delta -2.53 ng/L (0-12)
[2024-12-07] MEDS: carBAMazepine 200 mg Tablet NG-TUBE ×2 (14:07→21:01)
--- NOTE | 2024-12-07 16:06 | PHA.VACGOAL ---
Vancomycin Goal - Goal Vancomycin Goal:: 15-20 mg/L Vancomycin Indication:: Pneumonia - Therapy Current therapy:: Meropenem Day of therpy:: Day []of [] . Actual body weight (kg): 57.969 kg - Data Labs: WBC 7.58 10^3/uL (3.29-11.43) 12/07/24 07:24 RBC 5.07 10^6/uL (3.85-5.65) 12/07/24 07:24 Hgb 15.00 g/dL (11.27-16.99) 12/07/24 07:24 Hct 46.8 % (37-53) 12/07/24 07:24 MCV 92.3 fl (82-101) 12/07/24 07:24 MCH 29.6 pg (27-33) 12/07/24 07:24 MCHC 32.1 g/dL (30-55) 12/07/24 07:24 RDW 16.2 % (12.1-15.1) H 12/07/24 07:24 Sodium 129 mmol/L (136-145) L 12/07/24 07:24 Potassium 5.4 mmol/L (3.5-5.1) H 12/07/24 07:24 Chloride 94 mmol/L (98-107) L 12/07/24 07:24 Carbon Dioxide 22 mmol/L (22-29) 12/07/24 07:24 Anion Gap 18.4 (5-19) 12/07/24 07:24 BUN 9 mg/dL (6-20) 12/07/24 07:24 Creatinine 2.0 mg/dL (0.7-1.2) H 12/07/24 07:24 GFR Calculation 42.2 mL/min (90-130) L 12/07/24 07:24 Treatment plan:: new consult Regimen:: New start vancomycin for Pneumonia. No history of vancomycin found. Patient given [place] dose [place] 1250 mg. Home dialysis schedule of [facility]. Last dialysis session was on Sunday12/07/24.
[2024-12-07 16:36] LABS: MRSA PCR OZH (swab) MRSA Detected (Negative)
[2024-12-07] MEDS: glucagon 1 mg/mL KIT 1 mL IM (17:26)
[2024-12-07 17:27] LABS: Glucose Point of Care 45 mg/dL (70-110)
[2024-12-07] MEDS: norepinephrine 4 MG/250 ML BAG 7.5 MG IV (17:59)
[2024-12-07] MEDS: dextrose 10% 1,000 ML 50 ML IV (18:01)
[2024-12-07 18:19] LABS: Glucose Point of Care 95 mg/dL (70-110)
[2024-12-07] MEDS: albumin 12.5 GM/250 ML VIAL IV (18:33)
[2024-12-07] MEDS: ARIPiprazole 10 mg Tablet 15 MG PO (18:33)
[2024-12-07 19:22] LABS: Glucose Point of Care 110 mg/dL (70-110)
[2024-12-07 20:48] LABS: Alanine Aminotransferase 6 U/L (0-41); Albumin Level 3.3 g/dL (3.5-5.2); Alkaline Phosphatase 48 U/L (40-130); Blood Urea Nitrogen 13 mg/dL (6-20); Carbon Dioxide 21 mmol/L (22-29); Chloride 99 mmol/L (98-107); Creatinine Clr Calc Pharmacy 32.5884; Globulin 2.1 g/dL (1.3-4.6); Glomerular Filtration Rate 39.9 mL/min (90-130); Glucose 132 mg/dL (65-115); Osmolality Calculated 276 mOsm/kg (285-295); Sodium 132 mmol/L (136-145); Total Bilirubin 0.5 mg/dL (0.15-1.2); Total Protein 5.4 g/dL (6.6-8.7)
[2024-12-07 20:49] LABS: Anion Gap 16.6 (5-19); Aspartate Amino Transferase 21 U/L (0-40); Potassium 4.6 mmol/L (3.5-5.1)
[2024-12-07] MEDS: ATORVASTATIN 10 MG TABLET NG-TUBE (21:01)
[2024-12-07 21:39] LABS: Glucose Point of Care 112 mg/dL (70-110)
--- NOTE | 2024-12-07 21:40 | PC.NURSE ---
Unequal pupils Patient's pupils noted to be unequal and fixed. No previous documentation of this found. Furthermore, patient's temperature 94.5 rectally. Lynne hugger placed on patient. Dr. Soto notified of findings.
--- NOTE | 2024-12-07 21:59 | CTR_ITS ---
PROCEDURE INFORMATION: Exam: CT Head Without Contrast Exam date and time: 12/07/2024 9:32 PM Age: 54 years old Clinical indication: Visual disturbance; New onset of anisocoria. Intubated. ; Additional info: Asymmetrical pupils TECHNIQUE: Imaging protocol: Computed tomography of the head without contrast. Radiation optimization: All CT scans at this facility use at least one of these dose optimization techniques: automated exposure control; mA and/or kV adjustment per patient size (includes targeted exams where dose is matched to clinical indication); or iterative reconstruction. COMPARISON: CT head wo con* [id number] 10/17/2024 11:18 PM RADIATION DOSE METRICS: Total DLP (mGy-cm): 1095.24 FINDINGS: Brain: Advanced chronic ischemic change and atrophy. Cerebral ventricles: No ventriculomegaly. Paranasal sinuses: Visualized sinuses are unremarkable. No fluid levels. Mastoid air cells: Visualized mastoid air cells are well aerated. Bones: Unremarkable. No acute fracture. Soft tissues: Unremarkable. CT/CT head wo con* [id number] IMPRESSION: No acute intracranial abnormality.
[2024-12-07] MEDS: iohexol 350 mg/mL 500 mL Btl (per mL) IV (22:44)
[2024-12-07 23:27] LABS: Glucose Point of Care 94 mg/dL (70-110)
[2024-12-07] MEDS: propofol 1,000 MG/100 ML INJ 5.62 MG IV (23:43)
[2024-12-08] VITALS (54 sets, daily range): BP systolic 107–198; BP diastolic 58–104; PULSE 57–85; RESP 14–34; TEMP 35–37.3; O2SAT 96–100
[2024-12-08 02:34] LABS: Glucose Point of Care 96 mg/dL (70-110)
[2024-12-08] MEDS: fentaNYL 1,000 MCG/100 ML BAG 5 MCG IV (03:04)
[2024-12-08 04:32] LABS: Glucose Point of Care 82 mg/dL (70-110)
[2024-12-08 04:55] LABS: Basophils % 0.8 %; Eosinophils % 0.8 %; Hematocrit 36.8 % (37-53); Lymphocytes % 19.2 %; Mean Corpuscular HGB Conc 31.5 g/dL (30-55); Mean Corpuscular Hemoglobin 29.6 pg (27-33); Mean Corpuscular Volume 93.9 fl (82-101); Mean Platelet Volume 9.7 fL (7.4-10.4); Monocytes # 0.4 10^3/uL (0.2-0.9); Monocytes % 7.3 %; Neutrophils # 3.73 10^3/uL (1.8-7.7); Neutrophils % 71.7 %; Nucleated Red Blood Cells % 0 %; Platelet Count 163 10^3/cmm (157-399); Red Blood Count 3.92 10^6/uL (3.85-5.65); Red Cell Distribution Width 16.7 % (12.1-15.1)
[2024-12-08 05:09] LABS: Alanine Aminotransferase 7 U/L (0-41); Albumin Level 3.1 g/dL (3.5-5.2); Alkaline Phosphatase 55 U/L (40-130); Anion Gap 14.9 (5-19); Aspartate Amino Transferase 19 U/L (0-40); Blood Urea Nitrogen 16 mg/dL (6-20); Calcium 8.7 mg/dL (8.5-10.5); Carbon Dioxide 22 mmol/L (22-29); Chloride 96 mmol/L (98-107); Creatinine Clr Calc Pharmacy 27.3743; Globulin 2.2 g/dL (1.3-4.6); Glomerular Filtration Rate 32.6 mL/min (90-130); Glucose 88 mg/dL (65-115); Magnesium 1.6 mg/dL (1.7-2.3); Osmolality Calculated 267 mOsm/kg (285-295); Phosphorus 1.9 mg/dL (2.5-4.5); Potassium 4.9 mmol/L (3.5-5.1); Sodium 128 mmol/L (136-145); Total Bilirubin 0.5 mg/dL (0.15-1.2); Total Protein 5.3 g/dL (6.6-8.7)
[2024-12-08 05:11] LABS: ABG PH Result 7.46 (7.35-7.45); Alveolar-Arterial Oxygen Gradi 10.5 mmHg (5-10); Arterial Blood Gas Hematocrit 38.2 % (42-52); Base Excess ABG 1.1 mmol/L (-2.0-2.0); Blood Gas Allen Test Pos; Blood Gas Operator Identificat JDB; Blood Gas Sample Site Radial, right; Blood Gas Sample Type Arterial; Carboxyhemoglobin 1.1 %THgb (0.4-20.1); HCO3 ABG 24.4 mmol/L (22-26); HGB O2 Sat 96.6 % (95-100); Ionized Calcium Level - ABG 1.2 mmol/L (1.1-1.4); Methemoglobin 0.3 % (0.4-1.5); Oxygen Device VENT; Oxygen Saturation ABG 98.1; PO2 ABG 89.4 mmHg (80.0-100.0); PO2 FiO2 Ratio Arterial Blood 298; Potassium Level - ABG 4.6 mmol/L (3.5-5.0); Total Hemoglobin 12.5 g/dL (14-18)
[2024-12-08 06:35] LABS: Glucose Point of Care 95 mg/dL (70-110)
[2024-12-08] MEDS: chlorhexidine gluconate 4% Btl 118 mL 1 APPLIC TOPICAL (07:06)
[2024-12-08] MEDS: fenofibrate 145 mg Tablet 160 MG PO (08:15)
[2024-12-08] MEDS: pantoprazole DR 40 mg Tablet PO (08:15)
[2024-12-08] MEDS: carBAMazepine 200 mg Tablet NG-TUBE ×2 (08:15→21:38)
[2024-12-08] MEDS: propofol 1,000 MG/100 ML INJ 11.23 MG IV (08:20)
[2024-12-08 08:31] LABS: Glucose Point of Care 83 mg/dL (70-110)
--- NOTE | 2024-12-08 09:53 | PM.CONSULT ---
Providers/Reason For Consult Consulting Physician/Specialty*: nephrology Reason for Consult*: esrd Requesting Physician: DR Benedict Attending Physician: Gail Benedict MD Primary Care Provider: Ahsan Gilliam MD History of Present Illness History of Present Illness Patient is intubated and sedated on mechanical ventilation. He is unable to provide any medical history. History is obtained from the medical record. Tyrese Leach is a 54 year old male, with a history of esrd, htn, dm2, who presented to the er on 12/06/2024 after he was noted to be acutely short of breath with hemoptysis on the morning on 12/06 by the senior care staff. He was found on the morning of presentation to be obtunded and lethargic with an oxygen saturation in the 70s. Per the medical record, patient was complaining of feeling unwell on Sunday and therefore missed his dialysis treatment on 12/05; however, he had HD on sunday, 12/06. CXR on presentation, was significant for pneumonia. NEphrology was consulted for further management of his esrd. Review of Systems General: Reports: ROS unobtainable due to medical condition Medications/Allergies Home Medications ?Medication ?Instructions ?Recorded ?Confirmed ?Last Taken ?Type amlodipine 10 mg tablet 10 mg PO DAILY@03/30/23 12/07/24 09/04/24 History atorvastatin 10 mg tablet 10 mg PO BEDTIME@03/30/23 12/07/24 09/04/24 History benztropine 1 mg tablet 1 mg PO BID@,03/30/23 12/07/24 09/04/24 History carbamazepine 200 mg tablet 200 mg PO TID@,,03/30/23 12/07/24 09/04/24 History carvedilol 25 mg tablet 25 mg PO BID@,03/30/23 12/07/24 09/04/24 History multivitamin with folic acid 400 1 tab PO DAILY@03/30/23 12/07/24 09/04/24 History mcg tablet (Daily-Sean (with folic acid)) blood sugar diagnostic (OneTouch #10 ea 09/26/23 12/07/24 Unknown History Ultra Test strips) lancets 33 gauge (TRUEplus Lancets) #100 ea 09/26/23 12/07/24 Unknown History pen needle, diabetic 31 gauge x #1,200 ea 09/26/23 12/07/24 Unknown History 5/16 (TechLITE Pen Needle) gabapentin 300 mg capsule 300 mg PO DAILY@10/24/23 12/07/24 09/04/24 History aripiprazole 15 mg tablet 15 mg PO QPM 12/07/23 12/07/24 09/04/24 History lurasidone 120 mg tablet (Latuda) 60 mg PO BID@12/07/23 12/07/24 09/04/24 History naloxone 4 mg/actuation nasal 1 spray intranasal PRN PRN Opioid 01/30/24 12/07/24 02/14/24 History spray (Narcan) Reversal aspirin 325 mg tablet,delayed 325 mg PO DAILY 02/15/24 12/07/24 09/04/24 History release fenofibrate 160 mg tablet 160 mg PO DAILY 02/15/24 12/07/24 09/04/24 History acetaminophen 325 mg tablet 650 mg PO QID PRN Pain 09/04/24 12/07/24 Unknown History (Tylenol) clonazepam 0.5 mg tablet See Rx Instructions .Route .COMPLEX 09/04/24 12/07/24 09/01/24 History famotidine 20 mg tablet 20 mg PO BID 09/04/24 12/07/24 09/04/24 History hydrocodone 5 mg-acetaminophen 325 1 tab PO DAILY PRN Pain 09/04/24 12/07/24 Unknown History mg tablet lisinopril 20 mg tablet 20 mg PO BEDTIME 09/04/24 12/07/24 09/03/24 History loperamide 2 mg tablet See Rx Instructions .Route 09/04/24 12/07/24 Unknown History .COMPLEX PRN Diarrhea Chapstick 1 applic topical BID PRN chapped 12/07/24 12/07/24 Unknown History lips hydralazine 50 mg tablet 50 mg PO QID 12/07/24 12/07/24 Unknown History insulin aspart U-100 100 unit/mL See Rx Instructions .Route .COMPLEX 12/07/24 12/07/24 Unknown History (3 mL) subcutaneous pen isosorbide mononitrate 30 mg 60 mg PO DAILY 12/07/24 12/07/24 Unknown History tablet,extended release 24 hr lidocaine 5 % topical patch See Rx Instructions .Route .COMPLEX 12/07/24 12/07/24 Unknown History menthol 2.5 mg-pectin 7 mg 1 sayda PO Q2H PRN sore throat or 12/07/24 12/07/24 Unknown History lozenges (Cough Drops cough (menthol-pectin)) pseudoephedrine-ibuprofen 30 1 tab PO TID PRN Congestion 12/07/24 12/07/24 Unknown History mg-200 mg tablet trazodone 100 mg tablet 200 mg PO QPM 12/07/24 12/07/24 Unknown History Allergies Allergy/AdvReac Type Severity Reaction Status Date / Time No Known Allergies Allergy Verified 11/25/24 17:02 Current Medications Generic Name Dose Route Start Last Admin Trade Name Freq PRN Reason Stop Dose Admin Aripiprazole 15 mg 12/07/24 18:00 12/07/24 18:33 Aripiprazole 10 Mg Tablet PO 15 mg QPM CARLOS Administration Atorvastatin Calcium 10 mg 12/07/24 21:00 12/07/24 21:01 Atorvastatin 10 Mg Tablet NG-TUBE 10 mg BEDTIME@21 CARLOS Administration Carbamazepine 200 mg 12/07/24 14:00 12/08/24 08:15 Carbamazepine 200 Mg Tablet NG-TUBE 200 mg TID@,,21 CARLOS Administration Chlorhexidine Gluconate 1 applic 12/08/24 04:15 12/08/24 07:06 Chlorhexidine Gluconate 4% Btl 118 Ml TOPICAL 1 applic Q24H CARLOS Administration Fenofibrate 160 mg 12/08/24 09:00 12/08/24 08:15 Fenofibrate 145 Mg Tablet PO 160 mg DAILY CARLOS Administration Heparin Sodium (Porcine) 5,000 unit 12/07/24 11:00 12/07/24 23:45 Heparin 5,000 Unit/Ml Inj 1 Ml SUBCUT 5,000 unit Q12H CARLOS Administration Propofol 1,000 mg in 100 mls @ 0 mls/hr 12/07/24 06:45 12/08/24 09:38 Diprivan IV 20 mcg/kg/min .Q0M CARLOS 7.49 mls/hr Titration Protocol Per Protocol Fentanyl 1,000 mcg in 100 mls @ 0 mls/hr 12/07/24 09:30 12/08/24 04:20 Sublimaze IV 25 mcg/hr .Q0M CARLOS 2.5 mls/hr Titration Protocol Per Protocol Norepinephrine Bitartrate 4 mg in 250 mls @ 0 mls/hr 12/07/24 17:30 12/07/24 19:00 Levophed IV 0 mcg/min .Q0M CARLOS 0 mls/hr Titration Protocol Per Protocol Dextrose 1,000 mls @ 50 mls/hr 12/07/24 17:30 12/07/24 18:01 D10w IV 50 mls/hr .Q20H CARLOS Administration Meropenem 500 mg 12/07/24 11:00 12/07/24 12:41 Meropenem 500 Mg Sdv IVP 500 mg Q24H CARLOS Administration Protocol Pantoprazole Sodium 40 mg 12/08/24 09:00 12/08/24 08:[address] 40 Mg Tablet PO 40 mg DAILY CARLOS Administration PFSH Acute PFSH: Medical History Hyperlipemia, mixed Acute renal failure Acute kidney injury superimposed on CKD Acute hyponatremia Hyponatremia Anemia Hypervolemia Tobacco abuse Diabetes Social History Smoking and tobacco/nicotine status: current every day tobacco/nicotine user Vitals/I&O/Wt Last Vital Signs Temp 99.2 F 12/08/24 04:30 Pulse 69 12/08/24 06:45 Resp 14 12/08/24 09:42 BP 186/78 12/08/24 06:45 Pulse Ox 99 12/08/24 09:42 O2 Del Method Mechanical Ventilation 12/08/24 06:30 FiO2 30 12/08/24 09:42 12/07/24 12/08/24 12/08/24 22:59 06:59 14:59 Intake Total 429.183 / 821.024 81.729 / 902.753 106.311 / 106.311 Output Total 650 / 650 300 / 950 Balance -220.817 / 171.024 -218.271 / -47.247 106.311 / 106.311 Weight last 48 hrs Weight 60 kg Weight 57.969 kg Weight 62.4 kg Physical Exam Narrative: GEN: intubated, sedated, ett inplace HEAD: atraumatic, normocephalic EYES: eyes are closed HEENT: ett in place NECK: no jvd CV: RRR LUNGS: diminished bs bilaterally ABD: soft, ND, +bs EXT: NO LE EDEMA SKIN: no rash NEURO: sedated Urinary Catheter Management: Ramos: Cath Placed During This Visit: yes Reason for Continuing Indwelling Catheter: Accurate Measurement of Urinary Output in Critically Ill Patients Urinary Catheter Date of Insertion: 12/07/24 Urinary Catheter Time of Insertion: 07:07 Data 12/08/24 04:47 12/08/24 04:47 Micro: Microbiology 12/07/24 11:50 Blood Culture - Preliminary Blood Staphylococcus epidermidis Staphylococcus lugdunensis 12/07/24 09:36 Gram Stain - Final Sputum - Endotracheal Tube Aspirate 12/07/24 13:33 Blood Culture - Preliminary Blood SPECIMEN COLLECTED A&P Assessment and plan (1) ESRD (end stage renal disease): esrd- He is on maintenance HD on a mwf schedule. i will plan on hd today acute hypoxic respiratory failure- Further vnet management per the primary service. I will plan on uf with hs as tolerated to assist with weaning acute CHF- I will plan on uf with hs as tolerated pneumonia- on abx per the primary service essential hyperension- i expect his bp control to improve with uf with hd PDMP PDMP Reviewed: Not Reviewed Consult Attestations Medical Necessity Statement: esrd, ahrf Time Spent in Patient Care: 50 minutes Coding Level of Care Code Acute Code for Chg Fwd Diagnoses ESRD (end stage renal disease) N18.6
[2024-12-08 10:55] LABS: Hepatitis C Virus Antibody Non-Reactive (Nonreactive)
[2024-12-08 10:56] LABS: Hepatitis B Surface Antigen Non-Reactive (Nonreactive)
[2024-12-08] MEDS: meropenem 500 mg SDV IVP (11:18)
[2024-12-08] MEDS: heparin 5,000 unit/mL INJ 1 mL 5000 UNIT SUBCUT ×2 (11:18→23:35)
[2024-12-08 11:59] LABS: Glucose Point of Care 122 mg/dL (70-110)
--- NOTE | 2024-12-08 12:10 | P.PN_ITS ---
Subjective 2 Subjective: Seen this is currently intubated sedated. On minimal vent settings. Plan for dialysis today. Vitals/I&O/Wt Last Vital Signs Temp 98.6 F 12/08/24 10:13 Pulse 61 12/08/24 10:13 Resp 14 12/08/24 10:54 BP 161/73 12/08/24 10:13 Pulse Ox 100 12/08/24 10:54 O2 Del Method Mechanical Ventilation 12/08/24 06:30 FiO2 30 12/08/24 10:54 12/07/24 12/08/24 12/08/24 22:59 06:59 14:59 Intake Total 429.183 / 821.024 81.729 / 902.753 122.163 / 122.163 Output Total 650 / 650 300 / 950 Balance -220.817 / 171.024 -218.271 / -47.247 122.163 / 122.163 Weight last 48 hrs Weight 60 kg Weight 57.969 kg Weight 62.4 kg Physical Exam 2 Narrative: General: Intubated sedated HEENT: PERRLA, pupils bilaterally equal and reactive, pallors not present Chest: Coarse crackles to auscultation bilaterally CVS: S1-S2 regular, no murmurs, no tachycardia, no gallops, no rubs Abdomen: Soft, nontender, no organomegaly, bowel sounds present Neuro: Intubated sedated, unable to assess Extremities: No edema clubbing or cyanosis Urinary Catheter Management: Ramos: Cath Placed During This Visit: yes Reason for Continuing Indwelling Catheter: Accurate Measurement of Urinary Output in Critically Ill Patients Urinary Catheter Date of Insertion: 12/07/24 Urinary Catheter Time of Insertion: 07:07 Data 12/08/24 04:47 12/08/24 04:47 Micro: Microbiology 12/07/24 09:36 Gram Stain - Final Sputum - Endotracheal Tube Aspirate Sputum Culture - Preliminary 12/07/24 11:50 Blood Culture - Preliminary Blood Staphylococcus epidermidis Staphylococcus lugdunensis 12/07/24 13:33 Blood Culture - Preliminary Blood SPECIMEN COLLECTED A&P Assessment and plan (1) Acute hypoxic respiratory failure: (2) Pulmonary edema: (3) ESRD (end stage renal disease): (4) Hyperkalemia: (5) Hypoglycemia: (6) Malignant hypertension: (7) Sinus bradycardia: Plan 54-year-old male resident of [facility], history of CKD on dialysis Sunday, brought to the emergency room today with acute respiratory failure. Patient was hypoxic upon admission with O2 sats of 77%. Needed to be intubated in the emergency room. Additionally had hemoptysis. Symptoms appear to have developed acutely within the last 12 to 24 hours. Chest x-ray showing diffuse bilateral infiltrates concerning for flash pulmonary edema versus ARDS His blood pressure was elevated at 216/100 upon arrival. Possibly malignant hypertension leading to flash pulmonary edema. He received Lasix 40 mg IV in the emergency room. He has had no urine output afterwards. Nephrology is consulted to assess for dialysis today. Respiratory viral panel was negative for influenza RSV and COVID. Alternate differential includes ARDS, bilateral multifocal pneumonia, start meropenem and vancomycin renally dosed while undergoing infectious source evaluation. Meropenem picked as patient is noted to be colonized with ESBL E. coli in the past. CTA to evaluate for PE given acuity of symptoms and hemoptysis. Check stat blood cultures. Urine analysis negative nitrate, negative leukocyte esterase, unlikely UTI. Sputum culture taken in the emergency room, currently pending. Currently sedated with fentanyl and propofol which we will continue. Noted to have sinus bradycardia, blood pressure currently ranging systolics 1 20-1 30 after being initiated on propofol. Will continue his home blood pressure regimen with hydralazine, amlodipine. Hold carvedilol while bradycardic. Check echocardiogram to assess for ejection fraction, diastolic dysfunction. Troponin series with baseline troponin at 79, 2-hour at 79, no significant delta at 2 hours. Will await 6-hour trend. Hypoglycemic upon initial arrival with blood glucose of 68 Insulin to be administered right now for hyperkalemia, alongside of 10% dextrose bolus. Hold all insulin products for now otherwise. DVT prophylaxis: Heparin 5000 subcutaneously every 12 hours Full code 12/08/2024 plan for dialysis today. PF ratio 298. Large unlikely. Infiltrates most likely secondary to pulmonary edema. Respiratory panel negative for influenza RSV COVID. Continue meropenem, vancomycin. Patient is positive for MRSA nares. CTA chest ruled out PE. 1 blood culture bottle positive for staph lugdunensis. Repeat blood cultures today. Discussed with ID physician. Patient will need 4 weeks of IV antibiotics for treatment of above. Will have to wait for culture sensitivity. I have discussed with nursing staff to wean down sedation and attempt a spontaneous breathing trial today. Is on minimal vent settings and hopefully can be extubated There was concern for anisocoria last night. Unsure if this is a new or old finding. CT head, CTA head and neck negative for stroke. PDMP PDMP Reviewed: Not Reviewed Attestations 2 Medical Necessity Statement*: Intubated sedated Critical Care Time: The high probability of a clinically significant, sudden or life threatening deterioration of the patient's [respiratory, renal] system(s) required my full and direct attention, intervention and personal management. The critical care time is as shown. This time is in addition to time spent performing any reported procedures but includes the following: [x] Data and vital sign review and interpretation [x] Patient assessment, examination and intervention [x] Documentation [x] Medication orders and management Critical Care Time (min): 65 Coding Level of Care Code Acute Code for Chg Fwd Diagnoses Acute hypoxic respiratory failure J96.01 Pulmonary edema J81.1 ESRD (end stage renal disease) N18.6 Hyperkalemia E87.5 Hypoglycemia E16.2 Malignant hypertension I10 Sinus bradycardia R00.1
[2024-12-08] MEDS: albumin 12.5 GM/50 ML VIAL IV (13:06)
--- NOTE | 2024-12-08 13:27 | PC.HD ---
Pt is sedated, unable to give consent for treatment. Pt has no DPOA, only relative listed on chart is an aunt but the phone number is no longer in service. SOCIAL SERVICE DIRECTOR Erick called Dayami Bhakta (care provider), spoke to director Christina Gallo who said that patient generally signs his own consent so no other signer on record but she did provide another phone number for the patient's aunt which also did not work. Pt has been going to dialysis as outpatient, last treatment 2 days ago, which implies consent, but treatment medically necessary and Dr Benedict gave phone consent to SOCIAL SERVICE DIRECTOR who signed on her behalf.
[2024-12-08] MEDS: propofol 1,000 MG/100 ML INJ 18.72 MG IV ×2 (14:56→21:39)
[2024-12-08] MEDS: dextrose 10% 1,000 ML 50 ML IV (15:06)
[2024-12-08] MEDS: ARIPiprazole 10 mg Tablet 15 MG PO (17:34)
[2024-12-08 21:25] LABS: Glucose Point of Care 99 mg/dL (70-110)
[2024-12-08] MEDS: ATORVASTATIN 10 MG TABLET NG-TUBE (21:38)
[2024-12-08] MEDS: vancomycin 500 MG in sodium chloride 0.9% (plus) 100 ML 200 MG IV (21:38)
[2024-12-09] VITALS (31 sets, daily range): BP systolic 149–197; BP diastolic 66–115; PULSE 58–95; RESP 10–30; TEMP 36.1–36.9; O2SAT 97–100
[2024-12-09] MEDS: propofol 1,000 MG/100 ML INJ 16.85 MG IV (02:59)
[2024-12-09 04:03] LABS: Basophils % 0.7 %; Eosinophils # 0.1 10^3/uL (0.0-0.8); Eosinophils % 1.4 %; Hematocrit 33.6 % (37-53); Lymphocytes # 1.4 10^3/uL (0.8-4.8); Lymphocytes % 33.1 %; Mean Corpuscular Hemoglobin 30.2 pg (27-33); Mean Corpuscular Volume 91.3 fl (82-101); Mean Platelet Volume 10.6 fL (7.4-10.4); Monocytes # 0.4 10^3/uL (0.2-0.9); Neutrophils # 2.36 10^3/uL (1.8-7.7); Neutrophils % 54.6 %; Nucleated Red Blood Cells % 0 %; Platelet Count 171 10^3/cmm (157-399); Red Blood Count 3.68 10^6/uL (3.85-5.65); Red Cell Distribution Width 16.7 % (12.1-15.1); White Blood Count 4.32 10^3/uL (3.29-11.43)
[2024-12-09 04:18] LABS: Calcium 8.6 mg/dL (8.5-10.5); Creatinine Clr Calc Pharmacy 32.5735; Glomerular Filtration Rate 34.2 mL/min (90-130); Total Bilirubin 0.5 mg/dL (0.15-1.2)
[2024-12-09 04:23] LABS: ABG PCO2 31.9 mmHg (35-45); ABG PH Result 7.53 (7.35-7.45); Arterial Blood Gas Hematocrit 37.7 % (42-52); Base Excess ABG 4.2 mmol/L (-2.0-2.0); Blood Gas Allen Test Pos; Blood Gas Sample Type Arterial; HCO3 ABG 26.6 mmol/L (22-26); Ionized Calcium Level - ABG 1.2 mmol/L (1.1-1.4); Methemoglobin 0.4 % (0.4-1.5); Oxygen Saturation ABG > 99.1; Potassium Level - ABG 3.4 mmol/L (3.5-5.0); Total Hemoglobin 12.3 g/dL (14-18)
[2024-12-09 04:25] LABS: Alveolar-Arterial Oxygen Gradi 6.7 mmHg (5-10); Blood Gas Operator Identificat JDB; Blood Gas Sample Site Brachial, right; Oxygen Device VENT; PO2 FiO2 Ratio Arterial Blood 396
[2024-12-09 05:01] LABS: Alanine Aminotransferase 7 U/L (0-41); Alkaline Phosphatase 55 U/L (40-130); Aspartate Amino Transferase 20 U/L (0-40); Blood Urea Nitrogen 9 mg/dL (6-20); Carbon Dioxide 23 mmol/L (22-29); Chloride 95 mmol/L (98-107); Globulin 2.6 g/dL (1.3-4.6); Glucose 97 mg/dL (65-115); Magnesium 1.7 mg/dL (1.7-2.3); Osmolality Calculated 273 mOsm/kg (285-295); Sodium 132 mmol/L (136-145); Total Protein 5.6 g/dL (6.6-8.7)
[2024-12-09 07:43] LABS: Glucose Point of Care 97 mg/dL (70-110)
[2024-12-09] MEDS: carvedilol 25 mg Tablet PO ×2 (08:06→17:56)
[2024-12-09] MEDS: amlodipine 10 mg Tablet PO (08:06)
[2024-12-09] MEDS: pantoprazole DR 40 mg Tablet PO (08:08)
[2024-12-09] MEDS: carBAMazepine 200 mg Tablet NG-TUBE ×3 (08:08→20:28)
[2024-12-09] MEDS: fenofibrate 145 mg Tablet PO (08:22)
[2024-12-09] MEDS: hyDRALAzine 20 mg/mL INJ 1 mL IVP ×6 (08:36→23:18)
--- NOTE | 2024-12-09 09:47 | PC.NURSE ---
Sedation weaned this morning. Vent weaned per RT. Dr Christianson gave orders to extubate patient. Pt extubated at 0932. Currently on room air, sat 98%.
[2024-12-09] MEDS: meropenem 500 mg SDV IVP (10:30)
[2024-12-09] MEDS: heparin 5,000 unit/mL INJ 1 mL 5000 UNIT SUBCUT ×2 (10:30→23:18)
--- NOTE | 2024-12-09 10:35 | P.PN_ITS ---
Subjective 2 Subjective: Patient is intubated and sedated this morning on rounds which limits history. There were no acute events overnight per KITCHEN STEWARDESS. Medications: Reviewed: Yes Vitals/I&O/Wt Last Vital Signs Temp 97.2 F L 12/09/24 08:00 Pulse 88 12/09/24 10:00 Resp 19 H 12/09/24 10:00 BP 172/86 12/09/24 10:00 Pulse Ox 98 12/09/24 10:00 O2 Del Method Mechanical Ventilation 12/08/24 06:30 FiO2 12/09/24 08:44 12/08/24 12/09/24 12/09/24 22:59 06:59 14:59 Intake Total 720.567 / 1930.746 141.227 / 2071.973 179.542 / 179.542 Output Total 4176 / 4176 450 / 4626 Balance -3455.433 / -2245.254 -308.773 / -2554.027 179.542 / 179.542 Weight last 48 hrs Weight 58 kg Weight 59.5 kg Weight 60 kg Weight 57.969 kg Physical Exam 2 Narrative: General: Patient is intubated and sedated. Head: Normocephalic. Atraumatic. EOM intact. Neck: No JVD. Cardiovascular: RRR. No gallops. No murmurs. Hypertensive. Lungs: Breath sounds are mildly diminished, no use of accessory muscles, no crackles or wheezes. Intubated on mechanical ventilation. Skin: No jaundice. No rashes. Abdomen: Hypoactive bowel sounds, abdomen soft. Genito Urinary: Genital exam not performed since complaints not related. Rectal: Rectal exam not performed since no symptoms indicated blood loss. Extremities: No cyanosis or clubbing. Musculoskeletal: No swollen or erythematous joints. Neurological: No myoclonus. Sedated. Urinary Catheter Management: Ramos: Cath Placed During This Visit: yes Reason for Continuing Indwelling Catheter: Accurate Measurement of Urinary Output in Critically Ill Patients Urinary Catheter Date of Insertion: 12/07/24 Urinary Catheter Time of Insertion: 07:07 Data 12/09/24 03:25 12/09/24 03:25 Micro: Microbiology 12/07/24 13:33 Blood Culture - Preliminary Blood NEGATIVE TO DATE 12/08/24 12:50 Blood Culture - Preliminary Blood SPECIMEN COLLECTED 12/08/24 12:27 Blood Culture - Preliminary Blood SPECIMEN COLLECTED 12/07/24 09:36 Gram Stain - Final Sputum - Endotracheal Tube Aspirate Sputum Culture - Preliminary 12/07/24 11:50 Blood Culture - Preliminary Blood Staphylococcus epidermidis Staphylococcus lugdunensis A&P Assessment and plan (1) Acute hypoxic respiratory failure: (2) Pulmonary edema: (3) ESRD (end stage renal disease): (4) Hyperkalemia: (5) Hypoglycemia: (6) Malignant hypertension: (7) Sinus bradycardia: Plan Acute hypoxic respiratory failure Acute pulmonary edema -Patient is on minimal vent requirements -Proceed with spontaneous breathing trial this morning, if he passes will consider extubation -Volume control via dialysis -Continue broad-spectrum antibiotics -Fentanyl/propofol -Vent management End-stage renal disease -Nephrology following for dialysis management -Strict I's and O's -Daily weights Bacteremia -Will plan on 4 weeks IV antibiotics pending sensitivities Hypertension -Blood pressure markedly elevated -Will restart some home blood pressure meds this morning -IV hydralazine as needed -After extubation we will plan on restarting home meds DVT prophylaxis: Heparin PDMP PDMP Reviewed: Not Reviewed Attestations 2 Medical Necessity Statement*: Patient requires ongoing hospitalization for mechanical ventilation, IV antibiotics, following of cultures, and supportive care. Critical Care Time: The high probability of a clinically significant, sudden or life threatening deterioration of the patient's pulmonary system(s) required my full and direct attention, intervention and personal management. The critical care time is as shown. This time is in addition to time spent performing any reported procedures but includes the following: [x] Data and vital sign review and interpretation [x] Patient assessment, examination and intervention [x] Documentation [x] Medication orders and management Critical Care Time (min): 35 Coding Level of Care Code Acute Code for [facility] Fwd Diagnoses Acute hypoxic respiratory failure J96.01 Pulmonary edema J81.1 ESRD (end stage renal disease) N18.6 Hyperkalemia E87.5 Hypoglycemia E16.2 Malignant hypertension I10 Sinus bradycardia R00.1
--- NOTE | 2024-12-09 11:00 | P.PN_ITS ---
Subjective 2 Subjective: Patient was extubated this am. He is alert and awake on room air Medications: Reviewed: Yes Vitals/I&O/Wt Last Vital Signs Temp 97.2 F L 12/09/24 08:00 Pulse 88 12/09/24 10:00 Resp 19 H 12/09/24 10:00 BP 172/86 12/09/24 10:00 Pulse Ox 98 12/09/24 10:00 O2 Del Method Mechanical Ventilation 12/08/24 06:30 FiO2 12/09/24 08:44 12/08/24 12/09/24 12/09/24 22:59 06:59 14:59 Intake Total 720.567 / 1930.746 141.227 / 2071.973 179.542 / 179.542 Output Total 4176 / 4176 450 / 4626 Balance -3455.433 / -2245.254 -308.773 / -2554.027 179.542 / 179.542 Weight last 48 hrs Weight 58 kg Weight 59.5 kg Weight 60 kg Physical Exam 2 Narrative: GEN: nad, alert, awake HEAD: normocephalic, atraumatic EYES: eomi, anicteric sclera HEENT: MMM NECK: no jvd LUNGS: CTAB ABD: soft, nt, nd EXT: NO LE edema SKIN: no rash NEURO: grossly normal Urinary Catheter Management: Ramos: Cath Placed During This Visit: yes Reason for Continuing Indwelling Catheter: Accurate Measurement of Urinary Output in Critically Ill Patients Urinary Catheter Date of Insertion: 12/07/24 Urinary Catheter Time of Insertion: 07:07 Data 12/09/24 03:25 12/09/24 03:25 Micro: Microbiology 12/07/24 09:36 Gram Stain - Final Sputum - Endotracheal Tube Aspirate Sputum Culture - Preliminary 12/07/24 13:33 Blood Culture - Preliminary Blood NEGATIVE TO DATE 12/08/24 12:50 Blood Culture - Preliminary Blood SPECIMEN COLLECTED 12/08/24 12:27 Blood Culture - Preliminary Blood SPECIMEN COLLECTED 12/07/24 11:50 Blood Culture - Preliminary Blood Staphylococcus epidermidis Staphylococcus lugdunensis A&P Assessment and plan (1) ESRD (end stage renal disease): esrd- He is on maintenance HD on a mwf schedule. i will plan on hd tomorrow acute hypoxic respiratory failure- improved. He has been extubated and is on room air acute CHF- improved. I will cont uf with hs as tolerated pneumonia- on abx per the primary service essential hyperension- bp is stable PDMP PDMP Reviewed: Not Reviewed Attestations 2 Medical Necessity Statement*: esrd Time Spent in Patient Care: 25 minutes Coding Level of Care Code Acute Code for Chg Fwd Diagnoses ESRD (end stage renal disease) N18.6
[2024-12-09 11:27] LABS: Glucose Point of Care 146 mg/dL (70-110)
[2024-12-09 11:39] LABS: Procalcitonin 14.34 ng/mL (0-0.5)
[2024-12-09 14:01] LABS: Glucose Point of Care 168 mg/dL (70-110)
[2024-12-09 17:30] LABS: Glucose Point of Care 114 mg/dL (70-110)
[2024-12-09] MEDS: ARIPiprazole 10 mg Tablet 15 MG PO (17:56)
--- NOTE | 2024-12-09 20:17 | PC.NURSE ---
Transfer of care Report given to ZHANE Ortiz and care transferred.
[2024-12-09] MEDS: ATORVASTATIN 10 MG TABLET NG-TUBE (20:28)
[2024-12-09 20:45] LABS: Glucose Point of Care 91 mg/dL (70-110)
[2024-12-10] VITALS (36 sets, daily range): BP systolic 113–198; BP diastolic 61–103; PULSE 73–90; RESP 8–30; TEMP 36.2–36.7; O2SAT 95–100; BMI 17.9
--- NOTE | 2024-12-10 02:00 | PC.NURSE ---
BP Pts blood pressure 180s-190s systolic consistently after receiving scheduled and PRN doses of [address] Soto notified, orders to continue with current PRN and scheduled doses of IVP hydralazine.
[2024-12-10] MEDS: hyDRALAzine 20 mg/mL INJ 1 mL IVP ×7 (02:29→23:41)
[2024-12-10 03:16] LABS: Glucose Point of Care 81 mg/dL (70-110)
[2024-12-10 04:08] LABS: Basophils % 0.4 %; Eosinophils # 0.1 10^3/uL (0.0-0.8); Eosinophils % 1.1 %; Hematocrit 36.8 % (37-53); Lymphocytes # 0.9 10^3/uL (0.8-4.8); Lymphocytes % 20.2 %; Mean Corpuscular HGB Conc 33.4 g/dL (30-55); Mean Corpuscular Hemoglobin 30.2 pg (27-33); Mean Corpuscular Volume 90.4 fl (82-101); Mean Platelet Volume 10.3 fL (7.4-10.4); Monocytes # 0.5 10^3/uL (0.2-0.9); Monocytes % 10.7 %; Neutrophils # 3.03 10^3/uL (1.8-7.7); Neutrophils % 67.4 %; Nucleated Red Blood Cells % 0 %; Platelet Count 150 10^3/cmm (157-399); Red Blood Count 4.07 10^6/uL (3.85-5.65); Red Cell Distribution Width 16.2 % (12.1-15.1)
--- NOTE | 2024-12-10 05:48 | PC.NURSE ---
BP 209/86. Dr. Soto notified, new order to give additional 20 mg hydralazine IVP now.
[2024-12-10 06:08] LABS: Glucose Point of Care 92 mg/dL (70-110)
[2024-12-10] MEDS: dextrose 5%-sod chloride 0.9% 1,000 ML 50 ML IV (06:12)
[2024-12-10 07:03] LABS: Albumin Level 3.6 g/dL (3.5-5.2); Blood Urea Nitrogen 18 mg/dL (6-20); Calcium 9.4 mg/dL (8.5-10.5); Carbon Dioxide 23 mmol/L (22-29); Chloride 96 mmol/L (98-107); Creatinine Clr Calc Pharmacy 19.6759; Glomerular Filtration Rate 23.7 mL/min (90-130); Glucose 99 mg/dL (65-115); Magnesium 1.9 mg/dL (1.7-2.3); Phosphorus 2.7 mg/dL (2.5-4.5); Sodium 132 mmol/L (136-145); Vancomycin Random 18.2 ug/mL (20.0-40.0)
[2024-12-10 07:09] LABS: Anion Gap 17.1 (5-19); Potassium 4.1 mmol/L (3.5-5.1)
[2024-12-10 07:12] LABS: Glucose Point of Care 95 mg/dL (70-110)
[2024-12-10] MEDS: fenofibrate 145 mg Tablet PO (08:05)
[2024-12-10] MEDS: amlodipine 10 mg Tablet PO (08:05)
[2024-12-10] MEDS: carBAMazepine 200 mg Tablet NG-TUBE ×3 (08:05→22:01)
[2024-12-10] MEDS: carvedilol 25 mg Tablet PO ×2 (08:05→17:38)
[2024-12-10] MEDS: isosorbide mononitrate ER 60 mg Tablet PO (08:05)
[2024-12-10] MEDS: pantoprazole DR 40 mg Tablet PO (08:05)
--- NOTE | 2024-12-10 09:17 | PC.NURSE ---
Patient maintaining appropriate blood glucose levels without dextrose fluids. Verbal orders given to stop D5 by Dr. Christianson. D5 stopped.
--- NOTE | 2024-12-10 10:35 | P.PN_ITS ---
Subjective 2 Subjective: Patient is awake and alert on room air bur he remains non-verbal Medications: Reviewed: Yes Vitals/I&O/Wt Last Vital Signs Temp 98.0 F 12/10/24 08:14 Pulse 79 12/10/24 10:01 Resp 8 L 12/10/24 10:01 BP 178/76 12/10/24 10:01 Pulse Ox 99 12/10/24 10:01 O2 Del Method Room Air 12/10/24 06:00 FiO2 25 12/09/24 08:44 12/09/24 12/10/24 12/10/24 22:59 06:59 14:59 Intake Total 0 / 1179.542 Output Total 1300 / 1300 950 / 2250 Balance -1300 / -120.458 -950 / -1070.458 Weight last 48 hrs Weight 55 kg Weight 58 kg Weight 59.5 kg Physical Exam 2 Narrative: GEN: nad, alert, awake HEAD: normocephalic, atraumatic EYES: eomi, anicteric sclera HEENT: MMM NECK: no jvd LUNGS: CTAB ABD: soft, nt, nd EXT: NO LE edema SKIN: no rash NEURO: grossly normal Urinary Catheter Management: Ramos: Cath Placed During This Visit: yes Reason for Continuing Indwelling Catheter: Accurate Measurement of Urinary Output in Critically Ill Patients Urinary Catheter Date of Insertion: 12/07/24 Urinary Catheter Time of Insertion: 07:07 Data 12/10/24 03:43 12/10/24 06:40 Micro: Microbiology 12/08/24 12:50 Blood Culture - Preliminary Blood NEGATIVE TO DATE 12/08/24 12:27 Blood Culture - Preliminary Blood NEGATIVE TO DATE 12/07/24 09:36 Gram Stain - Final Sputum - Endotracheal Tube Aspirate Sputum Culture - Preliminary A&P Assessment and plan (1) ESRD (end stage renal disease): esrd- He is on maintenance HD on a mwf schedule. i will plan on hd today acute hypoxic respiratory failure- improved. He s/p extubation on 12/09. he remains on room air acute CHF- improved. I will cont uf with hs as tolerated pneumonia- on abx per the primary service essential hyperension- bp is stable PDMP PDMP Reviewed: Not Reviewed Attestations 2 Medical Necessity Statement*: esrd Time Spent in Patient Care: 25 minutes Coding Level of Care Code Acute Code for Chg Fwd Diagnoses ESRD (end stage renal disease) N18.6
--- NOTE | 2024-12-10 10:48 | P.PN_ITS ---
Subjective 2 Subjective: Patient tolerated extubation well from a pulmonary standpoint. He remains on room air. He remains n.p.o. as he has been nonverbal. He is awake and alert. Does not seem to try to interact verbally or nonverbally on exam this morning. Awaiting speech therapy evaluation today. Patient offers no complaints which limits history. Medications: Reviewed: Yes Vitals/I&O/Wt Last Vital Signs Temp 97.7 F 12/10/24 10:41 Pulse 77 12/10/24 10:41 Resp 16 12/10/24 10:41 BP 178/76 12/10/24 10:41 Pulse Ox 99 12/10/24 10:01 O2 Del Method Room Air 12/10/24 06:00 FiO2 25 12/09/24 08:44 12/09/24 12/10/24 12/10/24 22:59 06:59 14:59 Intake Total 0 / 1179.542 Output Total 1300 / 1300 950 / 2250 Balance -1300 / -120.458 -950 / -1070.458 Weight last 48 hrs Weight 55 kg Weight 58 kg Weight 59.5 kg Physical Exam 2 Narrative: General: Patient is awake. Chronically ill-appearing. Head: EOM intact. Neck: No JVD. Cardiovascular: RRR. No gallops. No murmurs. Hypertensive. Lungs: Adequate air movement, no use of accessory muscles, no crackles or wheezes. Skin: No jaundice. No rashes. Abdomen: Hypoactive bowel sounds, abdomen soft. Extremities: No cyanosis or clubbing. Musculoskeletal: No swollen or erythematous joints. Neurological: No myoclonus. Moves all extremities. Does not follow most commands. Urinary Catheter Management: Ramos: Cath Placed During This Visit: yes Reason for Continuing Indwelling Catheter: Accurate Measurement of Urinary Output in Critically Ill Patients Urinary Catheter Date of Insertion: 12/07/24 Urinary Catheter Time of Insertion: 07:07 Data 12/10/24 03:43 12/10/24 06:40 Micro: Microbiology 12/08/24 12:50 Blood Culture - Preliminary Blood NEGATIVE TO DATE 12/08/24 12:27 Blood Culture - Preliminary Blood NEGATIVE TO DATE 12/07/24 09:36 Gram Stain - Final Sputum - Endotracheal Tube Aspirate Sputum Culture - Preliminary A&P Assessment and plan (1) Acute hypoxic respiratory failure: (2) Pulmonary edema: (3) ESRD (end stage renal disease): (4) Hyperkalemia: (5) Hypoglycemia: (6) Malignant hypertension: (7) Sinus bradycardia: Plan Acute hypoxic respiratory failure Acute pulmonary edema -Extubated 12/09 -Now on room air -Volume control via dialysis Nonverbal status -Patient is nonverbal on exam, no other gross neurological deficits appreciated -Awaiting speech therapy evaluation to see if oral intake is safe -Initial head CT was negative for acute findings, if he remains nonverbal we will repeat head imaging Community acquired pneumonia -Procalcitonin significantly elevated -Continue broad-spectrum antibiotics End-stage renal disease -Nephrology following for dialysis management -Strict I's and O's -Daily weights Bacteremia -Repeat cultures are negative; query if contaminant; appears to be drawn off central line insertion -Continue abx -Follow repeat cultures Hypertension -Blood pressure remains elevated -Continue scheduled IV hydralazine and PRN as well -Awaiting oral intake; plan to restart home regimen once it resumes DVT prophylaxis: Heparin PDMP PDMP Reviewed: Not Reviewed Attestations 2 Medical Necessity Statement*: Patient requires ongoing hospitalization for speech therapy evaluation, plans for initiation of oral medications if approved by speech, blood pressure control, IV antibiotics, and supportive care. Coding Level of Care Code Acute Code for [facility] Diagnoses Acute hypoxic respiratory failure J96.01 Pulmonary edema J81.1 ESRD (end stage renal disease) N18.6 Hyperkalemia E87.5 Hypoglycemia E16.2 Malignant hypertension I10 Sinus bradycardia R00.1
[2024-12-10] MEDS: heparin, porcine 1,000 unit/mL INJ 10 mL 10000 UNIT HE (11:05)
[2024-12-10] MEDS: heparin 5,000 unit/mL INJ 1 mL 5000 UNIT SUBCUT ×2 (12:55→23:41)
--- NOTE | 2024-12-10 13:03 | PC.NURSE ---
Patient receiving dialysis during scheduled administration time of Meropenem. Pharmacist retiming medication due to medication not being compatible with administration during dialysis.
[2024-12-10] MEDS: meropenem 500 mg SDV IVP (15:10)
--- NOTE | 2024-12-10 16:11 | PC.NURSE ---
Diet order level 4 dyshphagia placed per speech recommendations and Dr Christianson verbal order given.
[2024-12-10] MEDS: ARIPiprazole 10 mg Tablet 15 MG PO (17:39)
[2024-12-10] MEDS: vancomycin 500 MG in sodium chloride 0.9% (plus) 100 ML 200 MG IV (22:01)
[2024-12-10] MEDS: ATORVASTATIN 10 MG TABLET NG-TUBE (22:01)
[2024-12-10] MEDS: lisinopril 20 mg Tablet PO (22:01)
[2024-12-10 23:06] LABS: Glucose Point of Care 137 mg/dL (70-110)
[2024-12-11] VITALS (32 sets, daily range): BP systolic 161–196; BP diastolic 66–88; PULSE 62–82; RESP 12–24; TEMP 36.2–37.1; O2SAT 92–100; BMI 17.2
[2024-12-11] MEDS: hyDRALAzine 20 mg/mL INJ 1 mL IVP ×3 (03:15→09:55)
[2024-12-11 04:21] LABS: Basophils % 0.9 %; Eosinophils # 0.1 10^3/uL (0.0-0.8); Eosinophils % 1.2 %; Hematocrit 39.9 % (37-53); Lymphocytes # 1.1 10^3/uL (0.8-4.8); Lymphocytes % 24.2 %; Mean Corpuscular HGB Conc 34.1 g/dL (30-55); Mean Corpuscular Hemoglobin 30.3 pg (27-33); Mean Corpuscular Volume 88.9 fl (82-101); Mean Platelet Volume 10.2 fL (7.4-10.4); Monocytes # 0.6 10^3/uL (0.2-0.9); Monocytes % 14.1 %; Neutrophils # 2.59 10^3/uL (1.8-7.7); Neutrophils % 59.6 %; Nucleated Red Blood Cells % 0 %; Platelet Count 230 10^3/cmm (157-399); Red Blood Count 4.49 10^6/uL (3.85-5.65); White Blood Count 4.34 10^3/uL (3.29-11.43)
[2024-12-11 04:45] LABS: Albumin Level 3.8 g/dL (3.5-5.2); Anion Gap 15.7 (5-19); Blood Urea Nitrogen 15 mg/dL (6-20); Calcium 9.2 mg/dL (8.5-10.5); Carbon Dioxide 27 mmol/L (22-29); Chloride 95 mmol/L (98-107); Creatinine Clr Calc Pharmacy 24.7463; Glomerular Filtration Rate 31.2 mL/min (90-130); Glucose 111 mg/dL (65-115); Phosphorus 2.7 mg/dL (2.5-4.5); Potassium 3.7 mmol/L (3.5-5.1); Sodium 134 mmol/L (136-145)
--- NOTE | 2024-12-11 04:46 | PC.NURSE ---
Addendum entered by Carmel Galvez RN 12/11/24 04:49: Witnessed waste of fentanyl and propofol Original Note: Wasted 25 mls fentanyl and 37 mls propofol. Waste witnessed by ZHANE Burt.
--- NOTE | 2024-12-11 07:50 | P.PN_ITS ---
Subjective 2 Subjective: not interactive , extubated Medications: Reviewed: Yes Medication Review Details: Current Medications Acetaminophen (Acetaminophen 325 Mg Tablet) 650 mg PO Q6H PRN PRN Reason: Mild/Mod Pain Or Temp >/= 101 Alteplase, Recombinant (Alteplase 1 Mg/Ml Sdv 2 Ml) 2 mg INTRACATH PRN PRN PRN Reason: DIALYSIS USE ONLY Amlodipine Besylate (Amlodipine 10 Mg Tablet) 10 mg PO DAILY [facility] Last Admin: 12/10/24 08:05 Dose: 10 mg Aripiprazole (Aripiprazole 10 Mg Tablet) 15 mg PO QPM [facility] Last Admin: 12/10/24 17:39 Dose: 15 mg Atorvastatin Calcium (Atorvastatin 10 Mg Tablet) 10 mg NG-TUBE BEDTIME@21 [facility] Last Admin: 12/10/24 22:01 Dose: 10 mg Carbamazepine (Carbamazepine 200 Mg Tablet) 200 mg NG-TUBE TID@09,14,21 [facility] Last Admin: 12/10/24 22:01 Dose: 200 mg Carvedilol (Carvedilol 25 Mg Tablet) 25 mg PO BID [facility] Last Admin: 12/10/24 17:38 Dose: 25 mg Fenofibrate (Fenofibrate 145 Mg Tablet) 145 mg PO DAILY [facility] Last Admin: 12/10/24 08:05 Dose: 145 mg Heparin Sodium (Porcine) (Heparin 5,000 Unit/Ml Inj 1 Ml) 5,000 unit SUBCUT Q12H [facility] Last Admin: 12/10/24 23:41 Dose: 5,000 unit Hydralazine HCl (Hydralazine 20 Mg/Ml Inj 1 Ml) 20 mg IVP Q4H PRN PRN Reason: SBP>180mmHg or DBP>110mmHG Last Admin: 12/10/24 08:18 Dose: 20 mg Hydralazine HCl (Hydralazine 50 Mg Tablet) 100 mg PO QID [facility] Albumin Human (Albumin) 12.5 gm in 50 mls @ 60 mls/hr IV PRN PRN PRN Reason: Hypotension and/or symptomatic Isosorbide Mononitrate (Isosorbide Mononitrate Er 60 Mg Tablet) 60 mg PO DAILY [facility] Last Admin: 12/10/24 08:05 Dose: 60 mg Lisinopril (Lisinopril 20 Mg Tablet) 20 mg PO BEDTIME [facility] Last Admin: 12/10/24 22:01 Dose: 20 mg Meropenem (Meropenem 500 Mg Sdv) 500 mg IVP Q24H [facility]; Protocol Last Admin: 12/10/24 15:10 Dose: 500 mg Ondansetron HCl (Ondansetron 2 Mg/Ml Sdv 2 Ml) 4 mg IVP Q8H PRN PRN Reason: vomiting, or N/V if npo Pantoprazole Sodium (Pantoprazole Dr 40 Mg Tablet) 40 mg PO DAILY [facility] Last Admin: 12/10/24 08:05 Dose: 40 mg Vancomycin HCl (Vancomycin 1,000 Mg Sdv (Pharmacy Mix)) 0 mg XX PRN PRN PRN Reason: Pharmacy to Dose Vitals/I&O/Wt Last Vital Signs Temp 97.7 F 12/11/24 04:00 Pulse 77 12/11/24 06:00 Resp 12 12/11/24 06:00 BP 182/81 12/11/24 06:00 Pulse Ox 100 12/11/24 06:00 O2 Del Method Room Air 12/11/24 06:00 FiO2 25 12/09/24 08:44 12/10/24 12/11/24 12/11/24 22:59 06:59 14:59 Intake Total 100 / 600 340 / 940 Output Total 75 / 3579 Balance 100 / -2904 265 / -2639 Weight last 48 hrs Weight 53 kg Weight 54.5 kg Weight 55 kg Physical Exam 2 Narrative: not interactive in bed -VS noted- BP elevated heent- nc/at, eomi neck supple lungs crackles , dull b/l heart regular ebdomen soft, + bs ext no edema RT IJ Permacath neuro- not interactive, minimally moving Urinary Catheter Management: Ramos: Cath Placed During This Visit: yes Reason for Continuing Indwelling Catheter: Accurate Measurement of Urinary Output in Critically Ill Patients Urinary Catheter Date of Insertion: 12/07/24 Urinary Catheter Time of Insertion: 07:07 Data 12/11/24 04:03 12/11/24 04:03 Micro: Microbiology 12/07/24 09:36 Gram Stain - Final Sputum - Endotracheal Tube Aspirate Sputum Culture - Preliminary Coag positive Staphylococcus A&P Assessment and plan (1) ESRD (end stage renal disease): esrd- He is on maintenance HD on a [facility] schedule. next dialysis tomorrow acute hypoxic respiratory failure- improved. He s/p extubation on 12/09. he remains on room air + influenzae acute CHF- continue to remove fluids on dialysis as tolerated pneumonia- on abx per the primary service essential hyperension- bp is elevated- remnove more fluids on hd. treat all pain, then consider adjusting bp meds hgb high staph epidermidis bateremia per Hospitalist seen and examined w/ A/V equipment and the AIDE of a nurse Plan see above PDMP PDMP Reviewed: Not Reviewed Attestations 2 Medical Necessity Statement*: esrd, AMS, infection. discharge as per hospitalist Time Spent in Patient Care: 16 - 35 minutes (>than 50% of time sp ent in counselling and/or direct pt care on unit) . Coding Level of Care Code Acute Code for [facility] Diagnoses ESRD (end stage renal disease) N18.6
[2024-12-11 07:59] LABS: Glucose Point of Care 128 mg/dL (70-110)
[2024-12-11] MEDS: fenofibrate 145 mg Tablet PO (09:07)
[2024-12-11] MEDS: hyDRALAzine 50 mg Tablet 100 MG PO ×4 (09:07→21:09)
[2024-12-11] MEDS: carvedilol 25 mg Tablet PO ×2 (09:08→17:35)
[2024-12-11] MEDS: carBAMazepine 200 mg Tablet NG-TUBE ×3 (09:08→21:09)
[2024-12-11] MEDS: pantoprazole DR 40 mg Tablet PO (09:08)
[2024-12-11] MEDS: isosorbide mononitrate ER 60 mg Tablet PO (09:08)
[2024-12-11] MEDS: amlodipine 10 mg Tablet PO (09:08)
--- NOTE | 2024-12-11 10:38 | P.PN_ITS ---
Subjective 2 Subjective: Patient remains on room air. He is in no acute distress this morning on exam. Waiting for speech therapy reevaluation today. If he continues to do well, he may be able to discharge later today or tomorrow. Medications: Reviewed: Yes Vitals/I&O/Wt Last Vital Signs Temp 97.7 F 12/11/24 04:00 Pulse 77 12/11/24 06:00 Resp 12 12/11/24 06:00 BP 182/81 12/11/24 06:00 Pulse Ox 100 12/11/24 06:00 O2 Del Method Room Air 12/11/24 06:00 FiO2 25 12/09/24 08:44 12/10/24 12/11/24 12/11/24 22:59 06:59 14:59 Intake Total 100 / 600 340 / 940 Output Total 75 / 3579 Balance 100 / -2904 265 / -2639 Weight last 48 hrs Weight 53 kg Weight 54.5 kg Weight 55 kg Physical Exam 2 Narrative: General: Patient is awake. Chronically ill-appearing. No acute distress. Head: EOM intact. Neck: No JVD. Cardiovascular: RRR. No gallops. No murmurs. Hypertensive. Lungs: Adequate air movement, no use of accessory muscles, no crackles or wheezes. Skin: No jaundice. No rashes. Abdomen: Hypoactive bowel sounds, abdomen soft. Extremities: No cyanosis or clubbing. Musculoskeletal: No swollen or erythematous joints. Neurological: No myoclonus. Moves all extremities. Does not follow most commands. Urinary Catheter Management: Ramos: Cath Placed During This Visit: yes Reason for Continuing Indwelling Catheter: Accurate Measurement of Urinary Output in Critically Ill Patients Urinary Catheter Date of Insertion: 12/07/24 Urinary Catheter Time of Insertion: 07:07 Data 12/11/24 04:03 12/11/24 04:03 Micro: Microbiology 12/07/24 09:36 Gram Stain - Final Sputum - Endotracheal Tube Aspirate Sputum Culture - Preliminary Coag positive Staphylococcus A&P Assessment and plan (1) Acute hypoxic respiratory failure: (2) Pulmonary edema: (3) ESRD (end stage renal disease): (4) Hyperkalemia: (5) Hypoglycemia: (6) Malignant hypertension: (7) Sinus bradycardia: Plan Poverty of words -Seems to be approaching baseline -Will await further ST recommendations Community acquired pneumonia -Continue broad-spectrum antibiotics End-stage renal disease -Nephrology following for dialysis management -Strict I's and O's -Daily weights Bacteremia -Continue abx -Follow repeat cultures -CM consult to assist w/ outpt abx Hypertension -Continue home antihypertensive regimen DVT prophylaxis: Heparin Acute hypoxic respiratory failure, resolved Acute pulmonary edema, resolved PDMP PDMP Reviewed: Not Reviewed Attestations 2 Medical Necessity Statement*: Patient requires ongoing hospitalization for IV abx and further speech therapy evaluation/treatment. Coding Level of Care Code Acute Code for [facility] Diagnoses Acute hypoxic respiratory failure J96.01 Pulmonary edema J81.1 ESRD (end stage renal disease) N18.6 Hyperkalemia E87.5 Hypoglycemia E16.2 Malignant hypertension I10 Sinus bradycardia R00.1
[2024-12-11] MEDS: heparin 5,000 unit/mL INJ 1 mL 5000 UNIT SUBCUT ×2 (11:18→22:51)
[2024-12-11 11:20] LABS: Glucose Point of Care 131 mg/dL (70-110)
--- NOTE | 2024-12-11 15:31 | PC.NURSE ---
Report given to Irina, transferred to room 276-2.
[2024-12-11] MEDS: meropenem 500 mg SDV IVP (15:42)
[2024-12-11 16:38] LABS: Glucose Point of Care 131 mg/dL (70-110)
[2024-12-11] MEDS: ARIPiprazole 10 mg Tablet 15 MG PO (17:35)
[2024-12-11] MEDS: ATORVASTATIN 10 MG TABLET NG-TUBE (21:09)
[2024-12-11] MEDS: lisinopril 20 mg Tablet PO (21:09)
[2024-12-11 23:28] LABS: Glucose Point of Care 109 mg/dL (70-110)
[2024-12-12] VITALS (11 sets, daily range): BP systolic 115–191; BP diastolic 61–96; PULSE 76–88; RESP 16–17; TEMP 35.8–37.4; O2SAT 94–100
[2024-12-12 02:46] LABS: Alanine Aminotransferase 9 U/L (0-41); Albumin Level 3.6 g/dL (3.5-5.2); Alkaline Phosphatase 76 U/L (40-130); Anion Gap 16.9 (5-19); Aspartate Amino Transferase 24 U/L (0-40); Blood Urea Nitrogen 24 mg/dL (6-20); Calcium 9.4 mg/dL (8.5-10.5); Carbon Dioxide 27 mmol/L (22-29); Chloride 97 mmol/L (98-107); Creatinine Clr Calc Pharmacy 16.4656; Globulin 3.3 g/dL (1.3-4.6); Glomerular Filtration Rate 20.1 mL/min (90-130); Glucose 112 mg/dL (65-115); Magnesium 2.1 mg/dL (1.7-2.3); Osmolality Calculated 289 mOsm/kg (285-295); Phosphorus 2.9 mg/dL (2.5-4.5); Potassium 3.9 mmol/L (3.5-5.1); Sodium 137 mmol/L (136-145); Total Bilirubin 0.8 mg/dL (0.15-1.2); Total Protein 6.9 g/dL (6.6-8.7)
[2024-12-12 06:32] LABS: Glucose Point of Care 110 mg/dL (70-110)
--- NOTE | 2024-12-12 08:06 | P.PN_ITS ---
Subjective 2 Subjective: seen and examined on dialysis. tolerating well. no complaints. answers by shaking head. not verbal Medications: Reviewed: Yes Medication Review Details: Current Medications Acetaminophen (Acetaminophen 325 Mg Tablet) 650 mg PO Q6H PRN PRN Reason: Mild/Mod Pain Or Temp >/= 101 Alteplase, Recombinant (Alteplase 1 Mg/Ml Sdv 2 Ml) 2 mg INTRACATH PRN PRN PRN Reason: DIALYSIS USE ONLY Amlodipine Besylate (Amlodipine 10 Mg Tablet) 10 mg PO DAILY [facility] Last Admin: 12/11/24 09:08 Dose: 10 mg Aripiprazole (Aripiprazole 10 Mg Tablet) 15 mg PO QPM [facility] Last Admin: 12/11/24 17:35 Dose: 15 mg Atorvastatin Calcium (Atorvastatin 10 Mg Tablet) 10 mg NG-TUBE BEDTIME@21 [facility] Last Admin: 12/11/24 21:09 Dose: 10 mg Carbamazepine (Carbamazepine 200 Mg Tablet) 200 mg NG-TUBE TID@,,21 [facility] Last Admin: 12/11/24 21:09 Dose: 200 mg Carvedilol (Carvedilol 25 Mg Tablet) 25 mg PO BID [facility] Last Admin: 12/11/24 17:35 Dose: 25 mg Fenofibrate (Fenofibrate 145 Mg Tablet) 145 mg PO DAILY [facility] Last Admin: 12/11/24 09:07 Dose: 145 mg Heparin Sodium (Porcine) (Heparin 5,000 Unit/Ml Inj 1 Ml) 5,000 unit SUBCUT Q12H [facility] Last Admin: 12/11/24 22:51 Dose: 5,000 unit Heparin Sodium (Porcine) (Heparin, Porcine 1,000 Unit/Ml Inj 10 Ml) 1,000 unit IV PRN [facility] Hydralazine HCl (Hydralazine 20 Mg/Ml Inj 1 Ml) 20 mg IVP Q4H PRN PRN Reason: SBP>180mmHg or DBP>110mmHG Last Admin: 12/11/24 09:55 Dose: 20 mg Hydralazine HCl (Hydralazine 50 Mg Tablet) 100 mg PO QID [facility] Last Admin: 12/11/24 21:09 Dose: 100 mg Albumin Human (Albumin) 12.5 gm in 50 mls @ 60 mls/hr IV PRN PRN PRN Reason: Hypotension and/or symptomatic Albumin Human (Albumin) 12.5 gm in 50 mls @ 60 mls/hr IV PRN PRN PRN Reason: Hypotension and/or symptomatic Isosorbide Mononitrate (Isosorbide Mononitrate Er 60 Mg Tablet) 60 mg PO DAILY [facility] Last Admin: 12/11/24 09:08 Dose: 60 mg Lisinopril (Lisinopril 20 Mg Tablet) 20 mg PO BEDTIME [facility] Last Admin: 12/11/24 21:09 Dose: 20 mg Meropenem (Meropenem 500 Mg Sdv) 500 mg IVP Q24H [facility]; Protocol Last Admin: 12/11/24 15:42 Dose: 500 mg Ondansetron HCl (Ondansetron 2 Mg/Ml Sdv 2 Ml) 4 mg IVP Q8H PRN PRN Reason: vomiting, or N/V if npo Pantoprazole Sodium (Pantoprazole Dr 40 Mg Tablet) 40 mg PO DAILY [facility] Last Admin: 12/11/24 09:08 Dose: 40 mg Vancomycin HCl (Vancomycin 1,000 Mg Sdv (Pharmacy Mix)) 0 mg XX PRN PRN PRN Reason: Pharmacy to Dose Vitals/I&O/Wt Last Vital Signs Temp 98.1 F 12/12/24 07:11 Pulse 86 12/12/24 07:56 Resp 16 12/12/24 07:56 BP 167/84 12/12/24 07:56 Pulse Ox 100 12/12/24 04:00 O2 Del Method Room Air 12/12/24 04:00 FiO2 25 12/09/24 08:44 Weight last 48 hrs Weight 58.967 kg Weight 53 kg Weight 54.5 kg Physical Exam 2 Narrative: not verbal. responds to simple questions, in bed on dialysis -VS noted- BP improved w/ dialysis heent- nc/at, eomi neck supple lungs clear b/l heart regular, +s1, s2 abdomen soft, + bs ext no edema RT IJ Permacath neuro- not verbal, responds rt IJ PC Urinary Catheter Management: Ramos: Cath Placed During This Visit: yes Reason for Continuing Indwelling Catheter: Acute Urinary Retention or Obstruction Urinary Catheter Date of Insertion: 12/07/24 Urinary Catheter Time of Insertion: 07:07 Data 12/11/24 04:03 12/12/24 01:52 Micro: Microbiology 12/07/24 09:36 Gram Stain - Final Sputum - Endotracheal Tube Aspirate Sputum Culture - Final Methicillin Resis Staph Aureus 12/07/24 11:50 Blood Culture - Preliminary Blood Staphylococcus epidermidis#2 A&P Assessment and plan (1) ESRD (end stage renal disease): esrd- He is on maintenance HD on a [facility] schedule. -tolerating HD well today acute hypoxic respiratory failure- improved. He s/p extubation on 12/09. he remains on room air + influenzae, community acquired pna- abx acute CHF- continue to remove fluids on dialysis as tolerated Bacteremia- on abx per the primary service essential hyperension- bp is elevated- remove more fluids on hd as tolerated. treat all pain, then consider adjusting bp meds hgb okay seen and examined w/ A/V equipment and the AIDE of a nurse Plan see above PDMP PDMP Reviewed: Not Reviewed Attestations 2 Medical Necessity Statement*: per hospitalist Time Spent in Patient Care: 16 - 35 minutes (>than 50% of time sp ent in counselling and/or direct pt care on unit) . Coding Level of Care Code Acute Code for [facility] Diagnoses ESRD (end stage renal disease) N18.6
--- NOTE | 2024-12-12 08:47 | P.DS_ITS ---
Discharge Providers Date of Admission: 12/07/24 08:53 Date of Discharge: December 12, 2024 Attending Provider at Admission: Lexis Alexander MD Attending Provider at Discharge: Bhargav Christianson MD Consults: Nephrology Primary Care Provider: Ahsan Gilliam MD Diagnoses at Discharge Discharge Diagnosis (1) ESRD (end stage renal disease): Status: Inactive Reason for Visit Reason for Visit: ams/resp distress Hospital Course Hospital Course Tyrese Leach is a 54-year-old male with past medical history significant for end-stage renal disease, intellectual disability, wheelchair-bound, mostly nonverbal, and multiple other comorbidities who presented with shortness of breath, found to have acute hypoxic respiratory failure requiring intubation and mechanical ventilation secondary to community-acquired pneumonia and acute pulmonary edema in the setting of end-stage renal disease. He was treated with dialysis and broad-spectrum antibiotics. Sputum culture was positive for MRSA consistent with MRSA pneumonia. Blood cultures were positive for Staphylococcus epidermis consistent with Staphylococcus epi bacteremia which is usually a contaminant in some patients however likely pathogenic in this patient with underlying ESRD. He was treated with IV vancomycin and meropenem. Patient will continue IV vancomycin treatment for 4 weeks due to bacteremia in the setting of ESRD. IV antibiotics will be coordinated through dialysis center. He will also go on oral antibiotics as well. Patient tolerated extubation well. Respiratory failure resolved. He was found to have dysphagia for which his diet was modified based upon speech therapy recommendations. He was found to be mostly nonverbal which has been his progressive baseline over the past year. He was discharged back to facility in stable condition. Physical Exam Const: OTHER: General: Patient is awake. No acute distress. Non-verbal. Head: EOM intact. Neck: No JVD. Cardiovascular: RRR. No gallops. No murmurs. Lungs: Adequate air movement, no use of accessory muscles, no crackles or wheezes. Skin: No jaundice. No rashes. Abdomen: Normoactive bowel sounds, abdomen soft. Extremities: No cyanosis or clubbing. Musculoskeletal: No swollen or erythematous joints. Neurological: No myoclonus. Moves all extremities. Does not follow most commands. Urinary Catheter Management: Ramos: Cath Placed During This Visit: yes Reason for Continuing Indwelling Catheter: Acute Urinary Retention or Obstruction Urinary Catheter Date of Insertion: 12/07/24 Urinary Catheter Time of Insertion: 07:07 Discharge Data Studies Completed and Pending Completed Studies During Hospitalization Category Date Time Status CT head wo con* [id number] Stat Cat Scan 12/07/24 21:59 Completed CTA PE [CT angio chest PE protcl [id number]] Routine Cat Scan 12/07/24 10:37 C ompleted XR chest 1V portable [id number] Stat Exams 12/07/24 06:44 Completed CV. echo complete* [id number] Routine Ultrasound 12/07/24 10:30 Completed Pending at discharge Category Date Time Status Blood Culture Stat Lab 12/07/24 13:33 Results Blood Culture Stat Lab 12/08/24 12:50 Results Comprehensive Metabolic Panel AM LABS Lab 12/13/24 04:00 Ordered Comprehensive Metabolic Panel AM LABS Lab 12/14/24 04:00 Ordered Magnesium AM LABS Lab 12/13/24 04:00 Ordered Magnesium AM LABS Lab 12/14/24 04:00 Ordered Phosphorus AM LABS Lab 12/13/24 04:00 Ordered Phosphorus AM LABS Lab 12/14/24 04:00 Ordered Radiology Impressions Chest X-Ray 12/07/24 06:44 IMPRESSION: 1. Extensive pneumonia. 2. Intubation. Chest CTA 12/07/24 10:37 IMPRESSION: Severe bilateral infiltrates, pneumonia versus pneumonitis. Head CT 12/07/24 21:59 IMPRESSION: No acute intracranial abnormality. Laboratory Results WBC 4.34 10^3/uL (3.29-11.43) 12/11/24 04:03 RBC 4.49 10^6/uL (3.85-5.65) 12/11/24 04:03 Hgb 13.60 g/dL (11.27-16.99) 12/11/24 04:03 Hct 39.9 % (37-53) 12/11/24 04:03 MCV 88.9 fl (82-101) 12/11/24 04:03 MCH 30.3 pg (27-33) 12/11/24 04:03 MCHC 34.1 g/dL (30-55) 12/11/24 04:03 RDW 16.0 % (12.1-15.1) H 12/11/24 04:03 Plt Count 230 10^3/cmm (157-399) D 12/11/24 04:03 MPV 10.2 fL (7.4-10.4) 12/11/24 04:03 Neut % (Auto) 59.6 % 12/11/24 04:03 Lymph % (Auto) 24.2 % 12/11/24 04:03 Sabine % (Auto) 14.1 % 12/11/24 04:03 Eos % (Auto) 1.2 % 12/11/24 04:03 Baso % (Auto) 0.9 % 12/11/24 04:03 Neut # (Auto) 2.59 10^3/uL (1.8-7.7) 12/11/24 04:03 Lymph # (Auto) 1.1 10^3/uL (0.8-4.8) 12/11/24 04:03 Sabine # (Auto) 0.6 10^3/uL (0.2-0.9) 12/11/24 04:03 Eos # (Auto) 0.1 10^3/uL (0.0-0.8) 12/11/24 04:03 Baso # (Auto) 0.0 10^3/uL (0.0-0.1) 12/11/24 04:03 Nucleated RBC % (auto) 0 % 12/11/24 04:03 Nucleated RBCs # 0.0 /100WBC 12/11/24 04:03 Specimen Type Arterial 12/09/24 04:08 Sample Site Brachial, right 12/09/24 04:08 ABG pH 7.53 (7.35-7.45) H 12/09/24 04:08 ABG pCO2 31.9 mmHg (35-45) L 12/09/24 04:08 ABG pO2 119.0 mmHg (80.0-100.0) H 12/09/24 04:08 ABG PO2/FiO2 Ratio 396 12/09/24 04:08 ABG HCO3 26.6 mmol/L (22-26) H 12/09/24 04:08 ABG O2 Saturation > 99.1 12/09/24 04:08 ABG Base Excess 4.2 mmol/L (-2.0-2.0) H 12/09/24 04:08 Jeff Test Pos 12/09/24 04:08 A-a O2 Gradient 6.7 mmHg (5-10) 12/09/24 04:08 Hematocrit 37.7 % (42-52) L 12/09/24 04:08 Hgb O2 Saturation 98.0 % (95-100) 12/09/24 04:08 Carboxyhemoglobin 1.0 %THgb (0.4-20.1) 12/09/24 04:08 Methemoglobin 0.4 % (0.4-1.5) 12/09/24 04:08 Total Hemoglobin 12.3 g/dL (14-18) L 12/09/24 04:08 Sodium 129.0 mmol/L (131-143) L 12/09/24 04:08 Potassium 3.4 mmol/L (3.5-5.0) L 12/09/24 04:08 Glucose 98.0 mg/dL (70-115) 12/09/24 04:08 Ionized Calcium 1.2 mmol/L (1.1-1.4) 12/09/24 04:08 O2 Delivery Device Vent 12/09/24 04:08 O2 Liters/Min 15.0 % 12/07/24 06:17 FiO2 30.0 % 12/09/24 04:08 Tidal Volume 0.40 12/09/24 04:08 PEEP 8.0 cmH20 12/09/24 04:08 Hydrogen Power Plant Manager ID [id number] 12/09/24 04:08 Sodium 137 mmol/L (136-145) 12/12/24 01:52 Potassium 3.9 mmol/L (3.5-5.1) 12/12/24 01:52 Chloride 97 mmol/L (98-107) L 12/12/24 01:52 Carbon Dioxide 27 mmol/L (22-29) 12/12/24 01:52 Anion Gap 16.9 (5-19) 12/12/24 01:52 BUN 24 mg/dL (6-20) H 12/12/24 01:52 Creatinine 3.8 mg/dL (0.7-1.2) H 12/12/24 01:52 GFR Calculation 20.1 mL/min (90-130) L 12/12/24 01:52 Glucose 112 mg/dL (65-115) 12/12/24 01:52 POC Glucose 110 mg/dL (70-110) 12/12/24 06:29 Calculated Osmolality 289 mOsm/kg (285-295) 12/12/24 01:52 Lactic Acid 1.0 mmol/L (0.5-2.2) 12/07/24 07:24 Calcium 9.4 mg/dL (8.5-10.5) 12/12/24 01:52 Phosphorus 2.9 mg/dL (2.5-4.5) 12/12/24 01:52 Magnesium 2.1 mg/dL (1.7-2.3) 12/12/24 01:52 Total Bilirubin 0.8 mg/dL (0.15-1.2) 12/12/24 01:52 AST 24 U/L (0-40) 12/12/24 01:52 ALT 9 U/L (0-41) 12/12/24 01:52 Alkaline Phosphatase 76 U/L (40-130) 12/12/24 01:52 Troponin T Baseline 79 ng/L (0-15) H 12/07/24 07:24 Troponin T 120 Minute 79.23 ng/L (0-15) H 12/07/24 09:58 Delta Troponin T 0.23 ABS# (0-10) 12/07/24 09:58 Troponin T Hi Sens 6Hr 76.47 ng/L (0-15) H 12/07/24 13:33 Troponin T Hi Sens 6Hr Delta -2.53 ng/L (0-12) L 12/07/24 13:33 NT-Pro-B Natriuret Pep 02105 pg/mL (0-125) H 12/07/24 07:24 Total Protein 6.9 g/dL (6.6-8.7) 12/12/24 01:52 Albumin 3.6 g/dL (3.5-5.2) 12/12/24 01:52 Globulin 3.3 g/dL (1.3-4.6) 12/12/24 01:52 Procalcitonin 14.34 ng/mL (0-0.5) H 12/09/24 03:25 Urine Color Yellow (Yellow) 12/07/24 07:24 Urine Appearance Clear (CLEAR) 12/07/24 07:24 Urine pH 8.5 (5-7) A 12/07/24 07:24 Ur Specific Hudgins 1.008 (1.005-1.030) 12/07/24 07:24 Urine Protein 3+ (Negative) A 12/07/24 07:24 Urine Glucose (UA) Negative (Normal) 12/07/24 07:24 Urine Ketones Negative (Negative) 12/07/24 07:24 Urine Blood Negative (Negative) 12/07/24 07:24 Urine Nitrate Negative (Negative) 12/07/24 07:24 Urine Bilirubin Negative (Negative) 12/07/24 07:24 Urine Urobilinogen 0.2 mg/dL (Negative) 12/07/24 07:24 Ur Leukocyte Esterase Negative (Negative) 12/07/24 07:24 Urine RBC 0-2 /hpf (0-2) 12/07/24 07:24 Urine WBC 0-5 /hpf (0-5) 12/07/24 07:24 Ur Squamous Epith Cells 0-5 /hpf (0-5) 12/07/24 07:24 Amorphous Sediment 1+ /hpf 12/07/24 07:24 Urine Bacteria 1+ /hpf (NONE) H 12/07/24 07:24 Hyaline Casts 0.81 /lpf 12/07/24 07:24 Nasal MRSA (PCR) Mrsa detected (Negative) A 12/07/24 15:11 Random Vancomycin 18.2 ug/mL (20.0-40.0) L 12/10/24 06:40 Hep Bs Antigen Non-reactive (Nonreactive) 12/07/24 07:24 Hep Bs Antibody 5.0 (11.5-1000) L 12/07/24 07:24 Hepatitis C Antibody Non-reactive (Nonreactive) 12/07/24 07:24 Influenza A (PCR) Negative (Negative) 12/07/24 08:33 Influenza Type B (PCR) Negative (Negative) 12/07/24 08:33 RSV (PCR) Negative (Negative) 12/07/24 08:33 SARS-CoV-2 (PCR) Negative (Negative) 12/07/24 08:33 Vitals Last Vital Signs Temp 98.1 F 12/12/24 07:11 Pulse 86 12/12/24 07:56 Resp 16 12/12/24 07:56 BP 167/84 12/12/24 07:56 Pulse Ox 100 12/12/24 04:00 O2 Del Method Room Air 12/12/24 04:00 FiO2 25 12/09/24 08:44 Discharge Plan Discharge Patient Disposition: Xfer Other Condition: Stable Prescriptions: New hydralazine 50 mg Tablet 100 mg PO TID 30 Days Qty: 180 0RF cefdinir 300 mg capsule 300 mg PO .After Dialysis 9 Days Qty: 3 0RF Rx Instructions: take 300 mg after hemodialysis for 3 doses total Continued (DME) OneTouch Ultra Test Strip See Rx Instructions .ROUTE .MEDSUPPLY Qty: 10 Rx Instructions: As directed (DME) pen needle, diabetic [TechLITE Pen Needle] 31 gauge x 5/16 needle See Rx Instructions .ROUTE .MEDSUPPLY Qty: 1200 Rx Instructions: As directed (DME) lancets [TRUEplus Lancets] 33 gauge misc See Rx Instructions .ROUTE .MEDSUPPLY Qty: 100 Rx Instructions: As directed carvedilol 25 mg Tablet 25 mg PO BID@, Rx Instructions: must administer with a meal/food. Hold if systolic BP is below 90 or diastolic BP below 60. atorvastatin 10 mg Tablet 10 mg PO BEDTIME@21 carbamazepine 200 mg Tablet 200 mg PO TID@,, amlodipine 10 mg Tablet 10 mg PO DAILY@09 benztropine 1 mg Tablet 1 mg PO BID@ multivitamin with folic acid [Daily-Sean (with folic acid)] 400 mcg tablet 1 tab PO DAILY@09 gabapentin 300 mg capsule 300 mg PO DAILY@09 DayQuil Sinus Pressure/Pain 30-200 mg Tablet 1 tab PO TID PRN (Reason: Congestion) isosorbide mononitrate 30 mg Tablet Extended Release 24 Hr 60 mg PO DAILY trazodone 100 mg tablet 200 mg PO QPM lidocaine 5 % adhesive patch,medicated See Rx Instructions .ROUTE .COMPLEX Rx Instructions: APPLY ONE PATCH TO SKIN ONCE daily before dialysis. MAY wear UP TO 12 hours. insulin aspart U-100 100 unit/mL (3 mL) insulin pen See Rx Instructions .ROUTE .COMPLEX Rx Instructions: Inject SUBCUTANEOUSLY FOUR TIMES DAILY PER sliding scale NEEDED with meals. max of 56 units EVERY DAY. SS: bs 141-180=2 units, 181-220=4 units,221- 260=6 units, 261-300=8 units, 301-350=10 units, 651-400=12 units, 401 or greater=14 units. Cough Drops (menthol-pectin) 2.5-7 mg Lozenge 1 sayda PO Q2H PRN (Reason: sore throat or cough) Chapstick 1 applic topical BID PRN (Reason: chapped lips) aripiprazole 15 mg tablet 15 mg PO QPM lurasidone [Latuda] 120 mg tablet 60 mg PO BID@ naloxone [Narcan] 4 mg/actuation spray,non-aerosol 1 spray INTRANASAL PRN PRN (Reason: Opioid Reversal) aspirin 325 mg tablet,delayed release (DR/EC) 325 mg PO DAILY fenofibrate 160 mg tablet 160 mg PO DAILY famotidine 20 mg tablet 20 mg PO BID acetaminophen [Tylenol] 325 mg Tablet 650 mg PO QID PRN (Reason: Pain) hydrocodone-acetaminophen 5-325 mg tablet 1 tab PO DAILY PRN (Reason: Pain) lisinopril 20 mg tablet 20 mg PO BEDTIME clonazepam 0.5 mg tablet See Rx Instructions .ROUTE .COMPLEX Rx Instructions: TAKE 1 TABLET BY MOUTH DAILY before dialysis on Sunday, Sunday, and Sunday for anxiety. loperamide 2 mg Tablet See Rx Instructions .ROUTE .COMPLEX PRN (Reason: Diarrhea) Rx Instructions: Take 2 tablets (4 mg) orally as needed at onset of diarrhea may repeat with each loose stool until symptoms controlled; do not exceed 8 mg per 24 hrs. Discontinued hydralazine 50 mg Tablet 50 mg PO QID Discharge Orders: Discharge Order (Routine); Ordered 12/12/24 Ordered By: Bhargav Christianson Referrals: Ahsan Gilliam MD [Primary Care Provider] - 4-7 days Discharge Diet: As Directed Discharge Activity: Resume usual activity and Increase activity as tolerated Patient Instructions: Dialysis Nutrition Plan (DC), Hemodialysis (DC), Opioid Safety Activity Restrictions/Additional Instructions: extremely thick/pureed diet with moderately thickened liquids. Take medications with food. Discharge Attestations Time Spent in Discharge Care*: greater than 30 min Status at Discharge: Cognitive status at discharge: moderately impaired cognition , Behavioral status at discharge: cooperative and can be uncooperative , Quality Metrics Clinical Quality Measures [ No reported AMI, CVA or VTE this stay] Coding Level of Care Code Acute Code for Chg Fwd Diagnoses ESRD (end stage renal disease) N18.6
[2024-12-12 10:40] LABS: Glucose Point of Care 104 mg/dL (70-110)
[2024-12-12] MEDS: isosorbide mononitrate ER 60 mg Tablet PO (10:56)
[2024-12-12] MEDS: fenofibrate 145 mg Tablet PO (10:57)
[2024-12-12] MEDS: pantoprazole DR 40 mg Tablet PO (10:57)
[2024-12-12] MEDS: amlodipine 10 mg Tablet PO (10:57)
[2024-12-12] MEDS: hyDRALAzine 50 mg Tablet 100 MG PO (10:57)
[2024-12-12] MEDS: carvedilol 25 mg Tablet PO (10:57)
[2024-12-12] MEDS: carBAMazepine 200 mg Tablet NG-TUBE ×2 (11:00→14:02)
[2024-12-12] MEDS: heparin 5,000 unit/mL INJ 1 mL 5000 UNIT SUBCUT (11:02)
[2024-12-12] MEDS: vancomycin 500 MG in sodium chloride 0.9% (plus) 100 ML 200 MG IV (11:42)
== END 2024-12-12 16:41 | disposition skilled nursing facility (03) | DRG 208 ==
LOC: ER 07:30 → ICU 09:00 → MEDSURG 12-11 14:43
PROVIDERS: Internal Medicine; Internal Medicine Nephrology; Admitting Provider Student in an Organized Health Care Education/Training Program; Emergency Provider Emergency Medicine; PCP Family Medicine; Visit Provider Internal Medicine
DX: J15.212 Pneumonia due to Methicillin resistant Staphylococcus aureus (principal); J96.01 Acute respiratory failure with hypoxia; N18.6 End stage renal disease; J81.0 Acute pulmonary edema; I12.0 Hypertensive chronic kidney disease with stage 5 chronic kidney disease or end stage renal disease; R78.81 Bacteremia; F70 Mild intellectual disabilities; E78.2 Mixed hyperlipidemia; F17.200 Nicotine dependence, unspecified, uncomplicated; E11.22 Type 2 diabetes mellitus with diabetic chronic kidney disease; E11.649 Type 2 diabetes mellitus with hypoglycemia without coma; R00.1 Bradycardia, unspecified; E87.5 Hyperkalemia; B95.7 Other staphylococcus as the cause of diseases classified elsewhere; R13.10 Dysphagia, unspecified; Z99.2 Dependence on renal dialysis; Z11.52 Encounter for screening for COVID-19; Z99.3 Dependence on wheelchair; Z79.899 Other long term (current) drug therapy; Z79.82 Long term (current) use of aspirin; Z79.4 Long term (current) use of insulin
CPT/HCPCS: 36415; 36416; 36573; 36592; 36600; 51702; 70450; 71045; 71275; 80051; 80053; 80069; 80202; 81001; 82330; 82803; 82805; 82962; 83605; 83735; 83880; 84100; 84145; 84484; 85025; 86706; 86803; 87040; 87070; 87077; 87150; 87186; 87205; 87340; 87637; 90935; 92507; 92526; 92610; 93005; 93306; 94002; 94003; 94799; 96365; 96366; 96367; 96372; 96374; 96375; 96376; 99291; 99292; J0360; J0612; J1610; J1644; J1815; J1940; J2185; J2704; J3010; J3370; J3490; J7042; J9999; P9045; P9047; Q3014

== ENCOUNTER 2024-12-13 00:39 | Emergency (ER) | payer MEDICAID, SELFPAY ==
[2024-12-13 00:42] VITALS: BP 139/71; PULSE 74; RESP 16; TEMP 36.8; O2SAT 98; BMI 19.9
--- NOTE | 2024-12-13 01:39 | W.ED.MALEGU ---
HPI - Male Genitourinary General: Chief complaint: Urogenital-Male Stated complaint: urinary issues Time Seen by Provider: 12/13/24 00:42 History of Present Illness: Patient is a 54-year-old end-stage renal patient that presents to the emergency department with caretakers. Patient was discharged from [facility] on 12/12/2024. He was admitted originally on 12/07/2024 for pneumonia. Since his return home, his caretakers note no urine output. Per caretakers he has end-stage renal disease and at times does not make urine and a shift. Patient is nonverbal but is alert and will follow some commands. This appears to be his baseline. Related Data Home Medications ?Medication ?Instructions ?Recorded ?Confirmed amlodipine 10 mg tablet 10 mg PO DAILY@03/30/23 12/07/24 atorvastatin 10 mg tablet 10 mg PO BEDTIME@03/30/23 12/07/24 benztropine 1 mg tablet 1 mg PO BID@,03/30/23 12/07/24 carbamazepine 200 mg tablet 200 mg PO TID@,,03/30/23 12/07/24 carvedilol 25 mg tablet 25 mg PO BID@,03/30/23 12/07/24 multivitamin with folic acid 400 1 tab PO DAILY@03/30/23 12/07/24 mcg tablet (Daily-Sean (with folic acid)) blood sugar diagnostic (OneTouch #10 ea 09/26/23 12/07/24 Ultra Test strips) lancets 33 gauge (TRUEplus Lancets) #100 ea 09/26/23 12/07/24 pen needle, diabetic 31 gauge x #1,200 ea 09/26/23 12/07/24 5/16 (TechLITE Pen Needle) gabapentin 300 mg capsule 300 mg PO DAILY@10/24/23 12/07/24 aripiprazole 15 mg tablet 15 mg PO QPM 12/07/23 12/07/24 lurasidone 120 mg tablet (Latuda) 60 mg PO BID@,12/07/23 12/07/24 naloxone 4 mg/actuation nasal 1 spray intranasal PRN PRN Opioid 01/30/24 12/07/24 spray (Narcan) Reversal aspirin 325 mg tablet,delayed 325 mg PO DAILY 02/15/24 12/07/24 release fenofibrate 160 mg tablet 160 mg PO DAILY 02/15/24 12/07/24 acetaminophen 325 mg tablet 650 mg PO QID PRN Pain 09/04/24 12/07/24 (Tylenol) clonazepam 0.5 mg tablet See Rx Instructions .Route .COMPLEX 09/04/24 12/07/24 famotidine 20 mg tablet 20 mg PO BID 09/04/24 12/07/24 hydrocodone 5 mg-acetaminophen 325 1 tab PO DAILY PRN Pain 09/04/24 12/07/24 mg tablet lisinopril 20 mg tablet 20 mg PO BEDTIME 09/04/24 12/07/24 loperamide 2 mg tablet See Rx Instructions .Route 09/04/24 12/07/24 .COMPLEX PRN Diarrhea Chapstick 1 applic topical BID PRN chapped 12/07/24 12/07/24 lips hydralazine 50 mg tablet 50 mg PO QID 12/07/24 12/07/24 insulin aspart U-100 100 unit/mL See Rx Instructions .Route .COMPLEX 12/07/24 12/07/24 (3 mL) subcutaneous pen isosorbide mononitrate 30 mg 60 mg PO DAILY 12/07/24 12/07/24 tablet,extended release 24 hr lidocaine 5 % topical patch See Rx Instructions .Route .COMPLEX 12/07/24 12/07/24 menthol 2.5 mg-pectin 7 mg 1 sayda PO Q2H PRN sore throat or 12/07/24 12/07/24 lozenges (Cough Drops cough (menthol-pectin)) pseudoephedrine-ibuprofen 30 1 tab PO TID PRN Congestion 12/07/24 12/07/24 mg-200 mg tablet trazodone 100 mg tablet 200 mg PO QPM 12/07/24 12/07/24 Allergies Allergy/AdvReac Type Severity Reaction Status Date / Time No Known Allergies Allergy Verified 11/25/24 17:02 Review of Systems General: Reports: ROS unobtainable due to mental status PFS ED PFSH: Medical History Hyperlipemia, mixed Acute renal failure Acute kidney injury superimposed on CKD Acute hyponatremia Hyponatremia Anemia Hypervolemia Tobacco abuse Diabetes Social History Smoking and tobacco/nicotine status: current every day tobacco/nicotine user Physical Exam Const: COMMON NORMALS: no acute distress and alert GENERAL APPEARANCE: cooperative ORIENTATION/CONSCIOUSNESS: Yes awake Neck/C-Spine: COMMON NORMALS: full ROM GENERAL: Yes normal visual inspection Lymph: LYMPHATIC: no lymphadenopathy noted Chest: COMMONS NORMALS: normal inspection of the chest Breast/axilla inspection: Yes no chest deformity, asymmetry, normal contours, no nodules, masses, tenderness Resp: COMMON NORMALS: normal respiratory effort, No retractions and No use of accessory muscles EFFORT & INSPECTION: Yes able to speak in complete sentences and Yes symmetric chest movement Cardio: COMMON NORMALS: regular rate and Peripheral pulses 2+ throughout RATE: regular rate PERIPHERAL PULSES: Peripheral pulses 2+ throughout GI: COMMON NORMALS: Normal to inspection, nondistended, normoactive bowel sounds present and non-tender INSPECTION: Yes normal to inspection : OTHER: Bladder scan?0. per staff, patient not make urine on some shifts but then will make as much is 400. Extremity: COMMON NORMALS: normal to inspection GENERAL: Yes normal exam except as noted Neuro: SENSORIUM/ORIENTATION: Yes alert CRANIAL NERVES: Yes CN normal except as noted Course Vital Signs: Vital signs: Vital Signs Temperature 98.2 F 12/13/24 00:42 Pulse Rate 74 12/13/24 00:42 Respiratory Rate 16 12/13/24 00:42 Blood Pressure 139/71 12/13/24 00:42 Pulse Oximetry 98 12/13/24 00:42 Oxygen Delivery Me thod Room Air 12/13/24 00:42 MDM - Male Medical Decision Making Patient evaluated in the emergency department this evening for possible urinary retention. Patient was just discharged from the hospital on 12/12/2024 for pneumonia. Prior to his discharge this afternoon, patient did undergo hemodialysis and it appears to have been uncomplicated. We did perform a bladder scan here in the emergency department which was negative. Patient is going to discharge home and needs to continue with dialysis as planned. They can return to the emergency department for new concerning or worsening symptoms. You need to continue monitoring his urine output closely and discuss with his dialysis care team. No radiology studies performed this visit Discharge Plan Discharge Patient Disposition: Home Clinical Impression: End stage chronic kidney disease Condition: Stable Prescriptions: No Action (DME) OneTouch Ultra Test Strip See Rx Instructions .ROUTE .MEDSUPPLY Qty: 10 Rx Instructions: As directed (DME) pen needle, diabetic [TechLITE Pen Needle] 31 gauge x 5/16 needle See Rx Instructions .ROUTE .MEDSUPPLY Qty: 1200 Rx Instructions: As directed (DME) lancets [TRUEplus Lancets] 33 gauge misc See Rx Instructions .ROUTE .MEDSUPPLY Qty: 100 Rx Instructions: As directed carvedilol 25 mg Tablet 25 mg PO BID@, Rx Instructions: must administer with a meal/food. Hold if systolic BP is below 90 or diastolic BP below 60. atorvastatin 10 mg Tablet 10 mg PO BEDTIME@ carbamazepine 200 mg Tablet 200 mg PO TID@,, amlodipine 10 mg Tablet 10 mg PO DAILY@09 benztropine 1 mg Tablet 1 mg PO BID@ multivitamin with folic acid [Daily-Sean (with folic acid)] 400 mcg tablet 1 tab PO DAILY@09 gabapentin 300 mg capsule 300 mg PO DAILY@09 DayQuil Sinus Pressure/Pain 30-200 mg Tablet 1 tab PO TID PRN (Reason: Congestion) isosorbide mononitrate 30 mg Tablet Extended Release 24 Hr 60 mg PO DAILY trazodone 100 mg tablet 200 mg PO QPM lidocaine 5 % adhesive patch,medicated See Rx Instructions .ROUTE .COMPLEX Rx Instructions: APPLY ONE PATCH TO SKIN ONCE daily before dialysis. MAY wear UP TO 12 hours. hydralazine 50 mg Tablet 50 mg PO QID insulin aspart U-100 100 unit/mL (3 mL) insulin pen See Rx Instructions .ROUTE .COMPLEX Rx Instructions: Inject SUBCUTANEOUSLY FOUR TIMES DAILY PER sliding scale NEEDED with meals. max of 56 units EVERY DAY. SS: bs 141-180=2 units, 181-220=4 units,221-260=6 units, 261-300=8 units, 301-350=10 units, 651-400=12 units, 401 or greater=14 units. Cough Drops (menthol-pectin) 2.5-7 mg Lozenge 1 sayda PO Q2H PRN (Reason: sore throat or cough) Chapstick 1 applic topical BID PRN (Reason: chapped lips) aripiprazole 15 mg tablet 15 mg PO QPM lurasidone [Latuda] 120 mg tablet 60 mg PO BID@ naloxone [Narcan] 4 mg/actuation spray,non-aerosol 1 spray INTRANASAL PRN PRN (Reason: Opioid Reversal) aspirin 325 mg tablet,delayed release (DR/EC) 325 mg PO DAILY fenofibrate 160 mg tablet 160 mg PO DAILY famotidine 20 mg tablet 20 mg PO BID acetaminophen [Tylenol] 325 mg Tablet 650 mg PO QID PRN (Reason: Pain) hydrocodone-acetaminophen 5-325 mg tablet 1 tab PO DAILY PRN (Reason: Pain) lisinopril 20 mg tablet 20 mg PO BEDTIME clonazepam 0.5 mg tablet See Rx Instructions .ROUTE .COMPLEX Rx Instructions: TAKE 1 TABLET BY MOUTH DAILY before dialysis on Sunday, Sunday, and Sunday for anxiety. loperamide 2 mg Tablet See Rx Instructions .ROUTE .COMPLEX PRN (Reason: Diarrhea) Rx Instructions: Take 2 tablets (4 mg) orally as needed at onset of diarrhea may repeat with each loose stool until symptoms controlled; do not exceed 8 mg per 24 hrs. Discharge Orders: Discharge ED (Routine); Ordered 12/13/24 Ordered By: Josy Churchill Referrals: Ahsan Gilliam MD [Primary Care Provider] - Discharge Diet: Advance as tolerated Discharge Activity: Resume usual activity Patient Instructions: Dialysis Nutrition Plan (DC), End Stage Kidney Disease (ED), Pain Management Activity Restrictions/Additional Instructions: Please continue to monitor urine output Please follow-up with dialysis on Sunday as planned. If patient's symptoms continue or worsen, return to emergency Print Language: Japanese Coding Level of Care Code ED Para Operator for Maria R Garrison
== END 2024-12-13 01:52 | disposition home or self-care (01) ==
PROVIDERS: Emergency Provider Nurse Practitioner; PCP Family Medicine
DX: E11.22 Type 2 diabetes mellitus with diabetic chronic kidney disease (principal); N18.6 End stage renal disease; E78.5 Hyperlipidemia, unspecified
CPT/HCPCS: 99281

== ENCOUNTER 2024-12-13 10:40 | Emergency (ER) | payer MEDICAID, SELFPAY ==
--- NOTE | 2024-12-13 10:43 | XRR_ITS ---
PROCEDURE INFORMATION: Exam: XR Chest Exam date and time: 12/13/2024 11:05 AM Age: 54 years old Clinical indication: Other: Weakness TECHNIQUE: Imaging protocol: Radiologic exam of the chest. Views: 1 view. COMPARISON: CT angio chest PE protcl [id number] 12/07/2024 9:35 PM FINDINGS: Tubes, catheters and devices: Central dialysis catheter terminates in the right atrium. Lungs: Minimal atelectatic changes at the left lung base. Pleural spaces: Unremarkable. No pleural effusion. No pneumothorax. Heart/Mediastinum: Unremarkable. No cardiomegaly. Bones/joints: Unremarkable. XR/XR chest 1V portable [id number] IMPRESSION: No acute findings.
[2024-12-13 10:44] VITALS: BP 87/47; PULSE 73; RESP 16; TEMP 36.6; O2SAT 100; BMI 24.3
[2024-12-13 11:07] LABS: ABG PCO2 38.2 mmHg (35-45); ABG PH Result 7.46 (7.35-7.45); Alveolar-Arterial Oxygen Gradi 2.8 mmHg (5-10); Arterial Blood Gas Hematocrit 39.8 % (42-52); Base Excess ABG 3.5 mmol/L (-2.0-2.0); Blood Gas Allen Test Pos; Blood Gas Operator Identificat WALCI; Blood Gas Sample Site Radial, right; Blood Gas Sample Type Arterial; Carboxyhemoglobin 1.4 %THgb (0.4-20.1); HCO3 ABG 27.4 mmol/L (22-26); HGB O2 Sat 93.6 % (95-100); Ionized Calcium Level - ABG 1.2 mmol/L (1.1-1.4); Methemoglobin 1.1 % (0.4-1.5); Oxygen Device ROOM AIR; PO2 ABG 76.9 mmHg (80.0-100.0); PO2 FiO2 Ratio Arterial Blood 366; Potassium Level - ABG 3.7 mmol/L (3.5-5.0)
--- NOTE | 2024-12-13 11:09 | W.ED.AMS ---
HPI - Altered Mental Status General: Chief Complaint: Altered Mental Status Stated Complaint: ams Time Seen by Provider: 12/13/24 10:43 History of Present Illness: 54-year-old -[place] man with a history of end-stage renal disease who presents the emergency room by ambulance with concern for his oxygen saturations being low. He has caregivers that tell me they have guidelines and they had checked his oxygen saturations and they were in the upper 80s and they are supposed to call an ambulance when this happens. EMS reports that his oxygen saturations were in the 90s when they got there. He is 100% on room air on arrival here. However his blood pressure is a little bit low initially. He will try to mouth his name to me and moves his extremities. EMS reports this is a little bit below his baseline but caregiver say this is been how he is been since he had pneumonia and was just discharged from the hospital last week. Related Data Home Medications ?Medication ?Instructions ?Recorded ?Confirmed amlodipine 10 mg tablet 10 mg PO DAILY@03/30/23 12/13/24 atorvastatin 10 mg tablet 10 mg PO BEDTIME@03/30/23 12/13/24 benztropine 1 mg tablet 1 mg PO BID@,03/30/23 12/13/24 carbamazepine 200 mg tablet 200 mg PO TID@,,03/30/23 12/13/24 carvedilol 25 mg tablet 25 mg PO BID@,03/30/23 12/13/24 multivitamin with folic acid 400 1 tab PO DAILY@03/30/23 12/13/24 mcg tablet (Daily-Sean (with folic acid)) blood sugar diagnostic (OneTouch #10 ea 09/26/23 12/13/24 Ultra Test strips) lancets 33 gauge (TRUEplus Lancets) #100 ea 09/26/23 12/13/24 pen needle, diabetic 31 gauge x #1,200 ea 09/26/23 12/13/24 5/16 (TechLITE Pen Needle) gabapentin 300 mg capsule 300 mg PO DAILY@10/24/23 12/13/24 aripiprazole 15 mg tablet 15 mg PO QPM 12/07/23 12/13/24 lurasidone 120 mg tablet (Latuda) 60 mg PO BID@,12/07/23 12/13/24 naloxone 4 mg/actuation nasal 1 spray intranasal PRN PRN Opioid 01/30/24 12/13/24 spray (Narcan) Reversal aspirin 325 mg tablet,delayed 325 mg PO DAILY 02/15/24 12/13/24 release fenofibrate 160 mg tablet 160 mg PO DAILY 02/15/24 12/13/24 acetaminophen 325 mg tablet 650 mg PO QID PRN Pain 09/04/24 12/13/24 (Tylenol) clonazepam 0.5 mg tablet See Rx Instructions .Route .COMPLEX 09/04/24 12/13/24 famotidine 20 mg tablet 20 mg PO BID 09/04/24 12/13/24 hydrocodone 5 mg-acetaminophen 325 1 tab PO DAILY PRN Pain 09/04/24 12/13/24 mg tablet lisinopril 20 mg tablet 20 mg PO BEDTIME 09/04/24 12/13/24 loperamide 2 mg tablet See Rx Instructions .Route 09/04/24 12/13/24 .COMPLEX PRN Diarrhea Chapstick 1 applic topical BID PRN chapped 12/07/24 12/13/24 lips insulin aspart U-100 100 unit/mL See Rx Instructions .Route .COMPLEX 12/07/24 12/13/24 (3 mL) subcutaneous pen isosorbide mononitrate 30 mg 60 mg PO DAILY 12/07/24 12/13/24 tablet,extended release 24 hr lidocaine 5 % topical patch See Rx Instructions .Route .COMPLEX 12/07/24 12/13/24 menthol 2.5 mg-pectin 7 mg 1 sayda PO Q2H PRN sore throat or 12/07/24 12/13/24 lozenges (Cough Drops cough (menthol-pectin)) pseudoephedrine-ibuprofen 30 1 tab PO TID PRN Congestion 12/07/24 12/13/24 mg-200 mg tablet trazodone 100 mg tablet 200 mg PO QPM 12/07/24 12/13/24 Previous Rx's ?Medication ?Instructions ?Recorded cefdinir 300 mg capsule 300 mg PO .After Dialysis 9 days 12/12/24 #3 caps hydralazine 50 mg tablet 100 mg (2 x 50 mg) PO TID 30 days 12/12/24 #180 tabs Allergies Allergy/AdvReac Type Severity Reaction Status Date / Time No Known Allergies Allergy Verified 11/25/24 17:02 Review of Systems General: Reports: ROS unobtainable due to medical condition PFSH ED PFSH: Medical History Hyperlipemia, mixed Acute renal failure Acute kidney injury superimposed on CKD Acute hyponatremia Hyponatremia Anemia Hypervolemia Tobacco abuse Diabetes Social History Smoking and tobacco/nicotine status: current every day tobacco/nicotine user Physical Exam Narrative: General: Alert, no acute distress. Skin: Warm, dry. Head: Normocephalic, atraumatic. Neck: Supple, trachea midline. Eye: Extraocular movements are intact. Ears, nose, mouth and throat: mucosa moist. Cardiovascular: Regular, Normal peripheral perfusion. Respiratory: Lungs are clear to auscultation, respirations are non-labored, breath sounds are equal, Symmetrical chest wall expansion. Gastrointestinal: Soft, Nontender, Non distended Musculoskeletal: Normal ROM, no deformity. Neurological: Patient is alert and follows some commands. He appears to be at or near his baseline according to caregivers. Psychiatric: Cooperative, appropriate mood & affect. Course Vital Signs: Vital signs: Vital Signs Temperature 97.8 F 12/13/24 10:44 Pulse Rate 73 12/13/24 11:48 Respiratory Rate 16 12/13/24 10:44 Blood Pressure 105/65 12/13/24 11:48 Pulse Oximetry 100 12/13/24 11:48 MDM - Altered Mental Status Medical Decision Making Patient has maintained oxygen saturations while he is been here. Chest x-ray is clear. ABG shows no hypoxemia or CO2 retention. He appears to be at his baseline mentation. Lab Review: Laboratory results were reviewed and interpreted by myself the emergency room physician. Lab work is unremarkable I reviewed the patient's medical record. Reexamination: Patient remained stable. No increased work of breathing. No altered mental status. No focal motor deficits. Assessment and plan: Feared complaint without diagnosis - Discharged home - Discussed plan with patient. Answered any questions. - Evaluation and treatment of this problem were appropriate in the emergency setting. Lab Data 12/13/24 11:53 12/13/24 12:15 Radiology Impressions Chest X-Ray 12/13/24 10:43 IMPRESSION: No acute findings. Laboratory Results WBC 5.58 10^3/uL (3.29-11.43) 12/13/24 11:53 RBC 4.16 10^6/uL (3.85-5.65) 12/13/24 11:53 Hgb 12.50 g/dL (11.27-16.99) 12/13/24 11:53 Hct 38.4 % (37-53) 12/13/24 11:53 MCV 92.3 fl (82-101) 12/13/24 11:53 MCH 30.0 pg (27-33) 12/13/24 11:53 MCHC 32.6 g/dL (30-55) 12/13/24 11:53 RDW 15.9 % (12.1-15.1) H 12/13/24 11:53 Plt Count 201 10^3/cmm (157-399) 12/13/24 11:53 MPV 10.7 fL (7.4-10.4) H 12/13/24 11:53 Neut % (Auto) 62.5 % 12/13/24 11:53 Lymph % (Auto) 19.4 % 12/13/24 11:53 Woods % (Auto) 16.5 % 12/13/24 11:53 Eos % (Auto) 0.5 % 12/13/24 11:53 Baso % (Auto) 0.7 % 12/13/24 11:53 Neut # (Auto) 3.49 10^3/uL (1.8-7.7) 12/13/24 11:53 Lymph # (Auto) 1.1 10^3/uL (0.8-4.8) 12/13/24 11:53 Woods # (Auto) 0.9 10^3/uL (0.2-0.9) 12/13/24 11:53 Eos # (Auto) 0.0 10^3/uL (0.0-0.8) 12/13/24 11:53 Baso # (Auto) 0.0 10^3/uL (0.0-0.1) 12/13/24 11:53 Nucleated RBC % (auto) 0 % 12/13/24 11:53 Nucleated RBCs # 0.0 /100WBC 12/13/24 11:53 Specimen Type Arterial 12/13/24 10:56 Sample Site Radial, right 12/13/24 10:56 ABG pH 7.46 (7.35-7.45) H 12/13/24 10:56 ABG pCO2 38.2 mmHg (35-45) 12/13/24 10:56 ABG pO2 76.9 mmHg (80.0-100.0) L 12/13/24 10:56 ABG PO2/FiO2 Ratio 366 12/13/24 10:56 ABG HCO3 27.4 mmol/L (22-26) H 12/13/24 10:56 ABG O2 Saturation 96.0 12/13/24 10:56 ABG Base Excess 3.5 mmol/L (-2.0-2.0) H 12/13/24 10:56 Jeff Test Pos 12/13/24 10:56 A-a O2 Gradient 2.8 mmHg (5-10) L 12/13/24 10:56 Hematocrit 39.8 % (42-52) L 12/13/24 10:56 Hgb O2 Saturation 93.6 % (95-100) L 12/13/24 10:56 Carboxyhemoglobin 1.4 %THgb (0.4-20.1) 12/13/24 10:56 Methemoglobin 1.1 % (0.4-1.5) 12/13/24 10:56 Total Hemoglobin 13.0 g/dL (14-18) L 12/13/24 10:56 Sodium 137.0 mmol/L (131-143) 12/13/24 10:56 Potassium 3.7 mmol/L (3.5-5.0) 12/13/24 10:56 Glucose 154.0 mg/dL (70-115) H 12/13/24 10:56 Ionized Calcium 1.2 mmol/L (1.1-1.4) 12/13/24 10:56 O2 Delivery Device Room air 12/13/24 10:56 FiO2 21.0 % 12/13/24 10:56 Tattoo Technician ID [place] 12/13/24 10:56 Sodium 135 mmol/L (136-145) L 12/13/24 12:15 Potassium 3.8 mmol/L (3.5-5.1) 12/13/24 12:15 Chloride 99 mmol/L (98-107) 12/13/24 12:15 Carbon Dioxide 23 mmol/L (22-29) 12/13/24 12:15 Anion Gap 16.8 (5-19) 12/13/24 12:15 BUN 32 mg/dL (6-20) H 12/13/24 12:15 Creatinine 4.4 mg/dL (0.7-1.2) H 12/13/24 12:15 GFR Calculation 17.0 mL/min (90-130) L 12/13/24 12:15 Glucose 176 mg/dL (65-115) H 12/13/24 12:15 Calculated Osmolality 291 mOsm/kg (285-295) 12/13/24 12:15 Lactic Acid 1.0 mmol/L (0.5-2.2) 12/13/24 11:53 Calcium 9.0 mg/dL (8.5-10.5) 12/13/24 12:15 Total Bilirubin 0.8 mg/dL (0.15-1.2) 12/13/24 12:15 AST 23 U/L (0-40) 12/13/24 12:15 ALT 8 U/L (0-41) 12/13/24 12:15 Alkaline Phosphatase 67 U/L (40-130) 12/13/24 12:15 Total Protein 6.8 g/dL (6.6-8.7) 12/13/24 12:15 Albumin 3.5 g/dL (3.5-5.2) 12/13/24 12:15 Globulin 3.3 g/dL (1.3-4.6) 12/13/24 12:15 All radiology interpretation(s) finalized by discharge Discharge Plan Discharge Patient Disposition: Home Clinical Impression: Feared complaint without diagnosis Condition: Stable Prescriptions: No Action (DME) OneTouch Ultra Test Strip See Rx Instructions .ROUTE .MEDSUPPLY Qty: 10 Rx Instructions: As directed (DME) pen needle, diabetic [TechLITE Pen Needle] 31 gauge x 5/16 needle See Rx Instructions .ROUTE .MEDSUPPLY Qty: 1200 Rx Instructions: As directed (DME) lancets [TRUEplus Lancets] 33 gauge misc See Rx Instructions .ROUTE .MEDSUPPLY Qty: 100 Rx Instructions: As directed carvedilol 25 mg Tablet 25 mg PO BID@ Rx Instructions: must administer with a meal/food. Hold if systolic BP is below 90 or diastolic BP below 60. atorvastatin 10 mg Tablet 10 mg PO BEDTIME@ carbamazepine 200 mg Tablet 200 mg PO TID@, amlodipine 10 mg Tablet 10 mg PO DAILY@09 benztropine 1 mg Tablet 1 mg PO BID@ multivitamin with folic acid [Daily-Sean (with folic acid)] 400 mcg tablet 1 tab PO DAILY@09 gabapentin 300 mg capsule 300 mg PO DAILY@09 pseudoephedrine-ibuprofen 30-200 mg Tablet 1 tab PO TID PRN (Reason: Congestion) isosorbide mononitrate 30 mg Tablet Extended Release 24 Hr 60 mg PO DAILY trazodone 100 mg tablet 200 mg PO QPM lidocaine 5 % adhesive patch,medicated See Rx Instructions .ROUTE .COMPLEX Rx Instructions: APPLY ONE PATCH TO SKIN ONCE daily before dialysis. MAY wear UP TO 12 hours. insulin aspart U-100 100 unit/mL (3 mL) insulin pen See Rx Instructions .ROUTE .COMPLEX Rx Instructions: Inject SUBCUTANEOUSLY FOUR TIMES DAILY PER sliding scale NEEDED with meals. max of 56 units EVERY DAY. SS: bs 141-180=2 units, 181-220=4 units,221-260=6 units, 261-300=8 units, 301-350=10 units, 651-400=12 units, 401 or greater=14 units. Cough Drops (menthol-pectin) 2.5-7 mg Lozenge 1 sayda PO Q2H PRN (Reason: sore throat or cough) Chapstick 1 applic topical BID PRN (Reason: chapped lips) hydralazine 50 mg Tablet 100 mg PO TID 30 Days Qty: 180 0RF cefdinir 300 mg capsule 300 mg PO .After Dialysis 9 Days Qty: 3 0RF Rx Instructions: take 300 mg after hemodialysis for 3 doses total aripiprazole 15 mg tablet 15 mg PO QPM lurasidone [Latuda] 120 mg tablet 60 mg PO BID@ naloxone [Narcan] 4 mg/actuation spray,non-aerosol 1 spray INTRANASAL PRN PRN (Reason: Opioid Reversal) aspirin 325 mg tablet,delayed release (DR/EC) 325 mg PO DAILY fenofibrate 160 mg tablet 160 mg PO DAILY famotidine 20 mg tablet 20 mg PO BID acetaminophen [Tylenol] 325 mg Tablet 650 mg PO QID PRN (Reason: Pain) hydrocodone-acetaminophen 5-325 mg tablet 1 tab PO DAILY PRN (Reason: Pain) lisinopril 20 mg tablet 20 mg PO BEDTIME clonazepam 0.5 mg tablet See Rx Instructions .ROUTE .COMPLEX Rx Instructions: TAKE 1 TABLET BY MOUTH DAILY before dialysis on Sunday, Sunday, and Sunday for anxiety. loperamide 2 mg Tablet See Rx Instructions .ROUTE .COMPLEX PRN (Reason: Diarrhea) Rx Instructions: Take 2 tablets (4 mg) orally as needed at onset of diarrhea may repeat with each loose stool until symptoms controlled; do not exceed 8 mg per 24 hrs. Discharge Orders: Discharge ED (Routine); Ordered 12/13/24 Ordered By: Estephanie Molina Referrals: Ahsan Gilliam MD [Primary Care Provider] - Discharge Diet: Usual diet Discharge Activity: Increase activity as tolerated Patient Instructions: Altered Mental Status (ED), Opioid Safety, Pain Management Activity Restrictions/Additional Instructions: Thank you for choosing [facility] for your healthcare needs today. Please realize this is an emergency room and that we are providing you with a medical screening exam and this may not be complete and all inclusive of all the testing and or work up that you may need to determine your ailment or severity of your illness. You have been screened and evaluated and felt safe for discharge. Health conditions do change or evolve sometimes and as such it is important that you follow up with your Primary Doctor to be re checked, 3-5 days is a general good time frame for follow up. You are always welcome to return to the ED for re assessment if your symptoms are worsening or you have new concerns Print Language: Vietnamese Coding Level of Care Code ED Assembler Arranger for Maria R Garrison
[2024-12-13 11:48] VITALS: BP 105/65; PULSE 73; O2SAT 100
[2024-12-13 12:00] LABS: Basophils % 0.7 %; Eosinophils % 0.5 %; Hematocrit 38.4 % (37-53); Lymphocytes # 1.1 10^3/uL (0.8-4.8); Lymphocytes % 19.4 %; Mean Corpuscular HGB Conc 32.6 g/dL (30-55); Mean Corpuscular Volume 92.3 fl (82-101); Mean Platelet Volume 10.7 fL (7.4-10.4); Monocytes # 0.9 10^3/uL (0.2-0.9); Monocytes % 16.5 %; Neutrophils # 3.49 10^3/uL (1.8-7.7); Neutrophils % 62.5 %; Nucleated Red Blood Cells % 0 %; Platelet Count 201 10^3/cmm (157-399); Red Blood Count 4.16 10^6/uL (3.85-5.65); Red Cell Distribution Width 15.9 % (12.1-15.1); White Blood Count 5.58 10^3/uL (3.29-11.43)
[2024-12-13 12:38] LABS: Alanine Aminotransferase 8 U/L (0-41); Albumin Level 3.5 g/dL (3.5-5.2); Alkaline Phosphatase 67 U/L (40-130); Anion Gap 16.8 (5-19); Aspartate Amino Transferase 23 U/L (0-40); Blood Urea Nitrogen 32 mg/dL (6-20); Carbon Dioxide 23 mmol/L (22-29); Chloride 99 mmol/L (98-107); Globulin 3.3 g/dL (1.3-4.6); Glucose 176 mg/dL (65-115); Osmolality Calculated 291 mOsm/kg (285-295); Potassium 3.8 mmol/L (3.5-5.1); Sodium 135 mmol/L (136-145); Total Bilirubin 0.8 mg/dL (0.15-1.2); Total Protein 6.8 g/dL (6.6-8.7)
[2024-12-13 12:58] VITALS: BP 108/54; PULSE 71; O2SAT 100
[2024-12-13 13:13] VITALS: BP 111/76; PULSE 73; O2SAT 100
== END 2024-12-13 13:15 | disposition home or self-care (01) ==
PROVIDERS: Emergency Provider Emergency Medicine; PCP Family Medicine
DX: Z03.89 Encounter for observation for other suspected diseases and conditions ruled out (principal); Z79.4 Long term (current) use of insulin; Z79.82 Long term (current) use of aspirin; Z72.0 Tobacco use; E11.9 Type 2 diabetes mellitus without complications; E78.2 Mixed hyperlipidemia
CPT/HCPCS: 36600; 71045; 80051; 80053; 82330; 82805; 83605; 85025; 99285

== ENCOUNTER 2024-12-14 20:12 | Emergency (ER) | payer MEDICAID, SELFPAY ==
[2024-12-14 20:15] VITALS: BP 163/69; PULSE 72; RESP 18; TEMP 36.7; O2SAT 96; BMI 20.7
--- NOTE | 2024-12-14 20:26 | W.ED.GENADLT ---
HPI - General Adult General: Chief complaint: General Medical Stated complaint: DISLODGED PICC LINE Time Seen by Provider: 12/14/24 20:26 History of Present Illness: Patient presents emergency room with PICC line dislodged. There is no bleeding. Site appears clean. Line is completely out. Nothing we can do with this tonight. There is no PICC line service./To be figured out tomorrow by his primary care physician. Related Data Home Medications ?Medication ?Instructions ?Recorded ?Confirmed amlodipine 10 mg tablet 10 mg PO DAILY@03/30/23 12/13/24 atorvastatin 10 mg tablet 10 mg PO BEDTIME@03/30/23 12/13/24 benztropine 1 mg tablet 1 mg PO BID@,03/30/23 12/13/24 carbamazepine 200 mg tablet 200 mg PO TID@,,03/30/23 12/13/24 carvedilol 25 mg tablet 25 mg PO BID@,03/30/23 12/13/24 multivitamin with folic acid 400 1 tab PO DAILY@03/30/23 12/13/24 mcg tablet (Daily-Sean (with folic acid)) blood sugar diagnostic (OneTouch #10 ea 09/26/23 12/13/24 Ultra Test strips) lancets 33 gauge (TRUEplus Lancets) #100 ea 09/26/23 12/13/24 pen needle, diabetic 31 gauge x #1,200 ea 09/26/23 12/13/24 5/16 (TechLITE Pen Needle) gabapentin 300 mg capsule 300 mg PO DAILY@10/24/23 12/13/24 aripiprazole 15 mg tablet 15 mg PO QPM 12/07/23 12/13/24 lurasidone 120 mg tablet (Latuda) 60 mg PO BID@,12/07/23 12/13/24 naloxone 4 mg/actuation nasal 1 spray intranasal PRN PRN Opioid 01/30/24 12/13/24 spray (Narcan) Reversal aspirin 325 mg tablet,delayed 325 mg PO DAILY 02/15/24 12/13/24 release fenofibrate 160 mg tablet 160 mg PO DAILY 02/15/24 12/13/24 acetaminophen 325 mg tablet 650 mg PO QID PRN Pain 09/04/24 12/13/24 (Tylenol) clonazepam 0.5 mg tablet See Rx Instructions .Route .COMPLEX 09/04/24 12/13/24 famotidine 20 mg tablet 20 mg PO BID 09/04/24 12/13/24 hydrocodone 5 mg-acetaminophen 325 1 tab PO DAILY PRN Pain 09/04/24 12/13/24 mg tablet lisinopril 20 mg tablet 20 mg PO BEDTIME 09/04/24 12/13/24 loperamide 2 mg tablet See Rx Instructions .Route 09/04/24 12/13/24 .COMPLEX PRN Diarrhea Chapstick 1 applic topical BID PRN chapped 12/07/24 12/13/24 lips insulin aspart U-100 100 unit/mL See Rx Instructions .Route .COMPLEX 12/07/24 12/13/24 (3 mL) subcutaneous pen isosorbide mononitrate 30 mg 60 mg PO DAILY 12/07/24 12/13/24 tablet,extended release 24 hr lidocaine 5 % topical patch See Rx Instructions .Route .COMPLEX 12/07/24 12/13/24 menthol 2.5 mg-pectin 7 mg 1 sayda PO Q2H PRN sore throat or 12/07/24 12/13/24 lozenges (Cough Drops cough (menthol-pectin)) pseudoephedrine-ibuprofen 30 1 tab PO TID PRN Congestion 12/07/24 12/13/24 mg-200 mg tablet trazodone 100 mg tablet 200 mg PO QPM 12/07/24 12/13/24 Previous Rx's ?Medication ?Instructions ?Recorded cefdinir 300 mg capsule 300 mg PO .After Dialysis 9 days 12/12/24 #3 caps hydralazine 50 mg tablet 100 mg (2 x 50 mg) PO TID 30 days 12/12/24 #180 tabs Allergies Allergy/AdvReac Type Severity Reaction Status Date / Time No Known Allergies Allergy Verified 12/14/24 20:19 Review of Systems General: Reports: ROS unobtainable due to medical condition [facility] ED PFSH: Medical History Hyperlipemia, mixed Acute renal failure Acute kidney injury superimposed on CKD Acute hyponatremia Hyponatremia Anemia Hypervolemia Tobacco abuse Diabetes Social History Smoking and tobacco/nicotine status: current every day tobacco/nicotine user Physical Exam Narrative: EXAM NARRATIVE: General: Alert, no acute distress. Skin: warm and dry Head: Normocephalic Neck: Trachea midline Eye: Extraocular movements are intact. Ears, nose, mouth and throat: Oral mucosa moist Respiratory: Respirations are non-labored Musculoskeletal: Normal ROM Neurological: Alert appears at his baseline.. Psychiatric: Cooperative, appropriate mood & affect. Course Vital Signs: Vital signs: Vital Signs Temperature 98.0 F 12/14/24 20:15 Pulse Rate 72 12/14/24 20:15 Respiratory Rate 18 12/14/24 20:15 Blood Pressure 163/69 12/14/24 20:15 Pulse Oximetry 96 12/14/24 20:15 Oxygen Delivery Me thod Room Air 12/14/24 20:15 MDM - General Adult Medical Decision Making Assessment and plan: PICC line fell out - Discharged home - Discussed plan with patient. Answered any questions. No radiology studies performed this visit Discharge Plan Discharge Patient Disposition: Home Clinical Impression: Status post PICC central line placement Condition: Stable Prescriptions: No Action (DME) OneTouch Ultra Test Strip See Rx Instructions .ROUTE .MEDSUPPLY Qty: 10 Rx Instructions: As directed (DME) pen needle, diabetic [TechLITE Pen Needle] 31 gauge x 5/16 needle See Rx Instructions .ROUTE .MEDSUPPLY Qty: 1200 Rx Instructions: As directed (DME) lancets [TRUEplus Lancets] 33 gauge misc See Rx Instructions .ROUTE .MEDSUPPLY Qty: 100 Rx Instructions: As directed carvedilol 25 mg Tablet 25 mg PO BID@ Rx Instructions: must administer with a meal/food. Hold if systolic BP is below 90 or diastolic BP below 60. atorvastatin 10 mg Tablet 10 mg PO BEDTIME@21 carbamazepine 200 mg Tablet 200 mg PO TID@, amlodipine 10 mg Tablet 10 mg PO DAILY@09 benztropine 1 mg Tablet 1 mg PO BID@ multivitamin with folic acid [Daily-Sean (with folic acid)] 400 mcg tablet 1 tab PO DAILY@09 gabapentin 300 mg capsule 300 mg PO DAILY@09 pseudoephedrine-ibuprofen 30-200 mg Tablet 1 tab PO TID PRN (Reason: Congestion) isosorbide mononitrate 30 mg Tablet Extended Release 24 Hr 60 mg PO DAILY trazodone 100 mg tablet 200 mg PO QPM lidocaine 5 % adhesive patch,medicated See Rx Instructions .ROUTE .COMPLEX Rx Instructions: APPLY ONE PATCH TO SKIN ONCE daily before dialysis. MAY wear UP TO 12 hours. insulin aspart U-100 100 unit/mL (3 mL) insulin pen See Rx Instructions .ROUTE .COMPLEX Rx Instructions: Inject SUBCUTANEOUSLY FOUR TIMES DAILY PER sliding scale NEEDED with meals. max of 56 units EVERY DAY. SS: bs 141-180=2 units, 181-220=4 units,221-260=6 units, 261-300=8 units, 301-350=10 units, 651-400=12 units, 401 or greater=14 units. Cough Drops (menthol-pectin) 2.5-7 mg Lozenge 1 sayda PO Q2H PRN (Reason: sore throat or cough) Chapstick 1 applic topical BID PRN (Reason: chapped lips) hydralazine 50 mg Tablet 100 mg PO TID 30 Days Qty: 180 0RF cefdinir 300 mg capsule 300 mg PO .After Dialysis 9 Days Qty: 3 0RF Rx Instructions: take 300 mg after hemodialysis for 3 doses total aripiprazole 15 mg tablet 15 mg PO QPM lurasidone [Latuda] 120 mg tablet 60 mg PO BID@09,21 naloxone [Narcan] 4 mg/actuation spray,non-aerosol 1 spray INTRANASAL PRN PRN (Reason: Opioid Reversal) aspirin 325 mg tablet,delayed release (DR/EC) 325 mg PO DAILY fenofibrate 160 mg tablet 160 mg PO DAILY famotidine 20 mg tablet 20 mg PO BID acetaminophen [Tylenol] 325 mg Tablet 650 mg PO QID PRN (Reason: Pain) hydrocodone-acetaminophen 5-325 mg tablet 1 tab PO DAILY PRN (Reason: Pain) lisinopril 20 mg tablet 20 mg PO BEDTIME clonazepam 0.5 mg tablet See Rx Instructions .ROUTE .COMPLEX Rx Instructions: TAKE 1 TABLET BY MOUTH DAILY before dialysis on Sunday, Sunday, and Sunday for anxiety. loperamide 2 mg Tablet See Rx Instructions .ROUTE .COMPLEX PRN (Reason: Diarrhea) Rx Instructions: Take 2 tablets (4 mg) orally as needed at onset of diarrhea may repeat with each loose stool until symptoms controlled; do not exceed 8 mg per 24 hrs. Discharge Orders: Discharge ED (Routine); Ordered 12/14/24 Ordered By: Estephanie Molina Referrals: Ahsan Gilliam MD [Primary Care Provider] - Discharge Diet: Usual diet Discharge Activity: Increase activity as tolerated Patient Instructions: Opioid Safety, Pain Management Activity Restrictions/Additional Instructions: You will need to contact the patient's primary provider and have PICC line placement arranged. Thank you for choosing [facility] for your healthcare needs today. Please realize this is an emergency room and that we are providing you with a medical screening exam and this may not be complete and all inclusive of all the testing and or work up that you may need to determine your ailment or severity of your illness. You have been screened and evaluated and felt safe for discharge. Health conditions do change or evolve sometimes and as such it is important that you follow up with your Primary Doctor to be re checked, 3-5 days is a general good time frame for follow up. You are always welcome to return to the ED for re assessment if your symptoms are worsening or you have new concerns Print Language: Citizen Of [place] Coding Level of Care Code ED Electrical Tryout Person for Maria R Garrison
[2024-12-14 20:45] VITALS: BP 156/73; PULSE 73; O2SAT 98
== END 2024-12-14 20:47 | disposition home or self-care (01) ==
PROVIDERS: Emergency Provider Emergency Medicine; PCP Family Medicine
DX: T82.524A Displacement of infusion catheter, initial encounter (principal); X58.XXXA Exposure to other specified factors, initial encounter; Z95.9 Presence of cardiac and vascular implant and graft, unspecified; Z79.4 Long term (current) use of insulin; Z79.82 Long term (current) use of aspirin; Z79.2 Long term (current) use of antibiotics; E78.2 Mixed hyperlipidemia; E11.9 Type 2 diabetes mellitus without complications
CPT/HCPCS: 99281

== ENCOUNTER 2024-12-17 12:19 | Emergency (ER) | payer MEDICAID, SELFPAY ==
[2024-12-17 12:24] VITALS: BP 132/59; PULSE 66; RESP 18; TEMP 36.4; O2SAT 100; BMI 24.4
[2024-12-17 12:41] LABS: Basophils % 0.9 %; Eosinophils # 0.1 10^3/uL (0.0-0.8); Eosinophils % 2.1 %; Hematocrit 37.8 % (37-53); Lymphocytes # 1.1 10^3/uL (0.8-4.8); Lymphocytes % 22.6 %; Mean Corpuscular HGB Conc 31.2 g/dL (30-55); Mean Corpuscular Hemoglobin 29.9 pg (27-33); Mean Corpuscular Volume 95.9 fl (82-101); Mean Platelet Volume 10.7 fL (7.4-10.4); Monocytes # 0.4 10^3/uL (0.2-0.9); Monocytes % 7.9 %; Neutrophils # 3.11 10^3/uL (1.8-7.7); Neutrophils % 66.1 %; Nucleated Red Blood Cells % 0 %; Platelet Count 214 10^3/cmm (157-399); Red Blood Count 3.94 10^6/uL (3.85-5.65); Red Cell Distribution Width 14.8 % (12.1-15.1)
[2024-12-17 13:01] LABS: Alanine Aminotransferase 8 U/L (0-41); Albumin Level 3.7 g/dL (3.5-5.2); Alkaline Phosphatase 73 U/L (40-130); Anion Gap 18.9 (5-19); Aspartate Amino Transferase 25 U/L (0-40); Blood Urea Nitrogen 38 mg/dL (6-20); Calcium 8.7 mg/dL (8.5-10.5); Carbon Dioxide 21 mmol/L (22-29); Chloride 99 mmol/L (98-107); Creatinine Clr Calc Pharmacy 17.8116; Globulin 3.4 g/dL (1.3-4.6); Glomerular Filtration Rate 15.4 mL/min (90-130); Glucose 210 mg/dL (65-115); Osmolality Calculated 295 mOsm/kg (285-295); Potassium 3.9 mmol/L (3.5-5.1); Sodium 135 mmol/L (136-145); Total Bilirubin 0.5 mg/dL (0.15-1.2); Total Protein 7.1 g/dL (6.6-8.7)
--- NOTE | 2024-12-17 13:23 | W.ED.GENADLT ---
HPI - General Adult General: Chief complaint: Abdominal Pain Stated complaint: Urine Retention Time Seen by Provider: 12/17/24 12:29 History of Present Illness: 54-year-old male presents emergency room with complaints of urinary retention. Patient lives in [facility]. Attends with staff. Was recently hospitalized for pneumonia. Since coming back to the nursing home has had difficult time urination no not urinating much at all. He has not had any shortness of breath. Patient does have chronic kidney disease. Related Data Home Medications ?Medication ?Instructions ?Recorded ?Confirmed amlodipine 10 mg tablet 10 mg PO DAILY@03/30/23 12/17/24 atorvastatin 10 mg tablet 10 mg PO BEDTIME@03/30/23 12/17/24 benztropine 1 mg tablet 1 mg PO BID@,03/30/23 12/17/24 carbamazepine 200 mg tablet 200 mg PO TID@,,03/30/23 12/17/24 carvedilol 25 mg tablet 25 mg PO BID@,03/30/23 12/17/24 multivitamin with folic acid 400 1 tab PO DAILY@03/30/23 12/17/24 mcg tablet (Daily-Sean (with folic acid)) blood sugar diagnostic (OneTouch #10 ea 09/26/23 12/17/24 Ultra Test strips) lancets 33 gauge (TRUEplus Lancets) #100 ea 09/26/23 12/17/24 pen needle, diabetic 31 gauge x #1,200 ea 09/26/23 12/17/24 5/16 (TechLITE Pen Needle) gabapentin 300 mg capsule 300 mg PO DAILY@10/24/23 12/17/24 aripiprazole 15 mg tablet 15 mg PO QPM 12/07/23 12/17/24 lurasidone 120 mg tablet (Latuda) 60 mg PO BID@,12/07/23 12/17/24 naloxone 4 mg/actuation nasal 1 spray intranasal PRN PRN Opioid 01/30/24 12/17/24 spray (Narcan) Reversal aspirin 325 mg tablet,delayed 325 mg PO DAILY 02/15/24 12/17/24 release fenofibrate 160 mg tablet 160 mg PO DAILY 02/15/24 12/17/24 acetaminophen 325 mg tablet 650 mg PO QID PRN Pain 09/04/24 12/17/24 (Tylenol) clonazepam 0.5 mg tablet See Rx Instructions .Route .COMPLEX 09/04/24 12/17/24 famotidine 20 mg tablet 20 mg PO BID 09/04/24 12/17/24 hydrocodone 5 mg-acetaminophen 325 1 tab PO DAILY PRN Pain 09/04/24 12/17/24 mg tablet lisinopril 20 mg tablet 20 mg PO BEDTIME 09/04/24 12/17/24 loperamide 2 mg tablet See Rx Instructions .Route 09/04/24 12/17/24 .COMPLEX PRN Diarrhea Chapstick 1 applic topical BID PRN chapped 12/07/24 12/17/24 lips insulin aspart U-100 100 unit/mL See Rx Instructions .Route .COMPLEX 12/07/24 12/17/24 (3 mL) subcutaneous pen isosorbide mononitrate 30 mg 60 mg PO DAILY 12/07/24 12/17/24 tablet,extended release 24 hr lidocaine 5 % topical patch See Rx Instructions .Route .COMPLEX 12/07/24 12/17/24 menthol 2.5 mg-pectin 7 mg 1 sayda PO Q2H PRN sore throat or 12/07/24 12/17/24 lozenges (Cough Drops cough (menthol-pectin)) pseudoephedrine-ibuprofen 30 1 tab PO TID PRN Congestion 12/07/24 12/17/24 mg-200 mg tablet trazodone 100 mg tablet 200 mg PO QPM 12/07/24 12/17/24 Previous Rx's ?Medication ?Instructions ?Recorded cefdinir 300 mg capsule 300 mg PO .After Dialysis 9 days 12/12/24 #3 caps hydralazine 50 mg tablet 100 mg (2 x 50 mg) PO TID 30 days 12/12/24 #180 tabs ciprofloxacin HCl 500 mg tablet 500 mg PO BID #14 tabs 12/17/24 (Cipro) Allergies Allergy/AdvReac Type Severity Reaction Status Date / Time No Known Allergies Allergy Verified 12/14/24 20:19 Review of Systems General: Reports: ROS unobtainable due to medical condition and ROS unobtainable due to mental status PFS ED PFSH: Medical History Malignant hypertension ESRD (end stage renal disease) Hyperlipemia, mixed Acute renal failure Acute kidney injury superimposed on CKD Acute hyponatremia Hyponatremia Anemia Hypervolemia Tobacco abuse Diabetes Social History Smoking and tobacco/nicotine status: current every day tobacco/nicotine user Physical Exam Const: COMMON NORMALS: no acute distress GENERAL APPEARANCE: cooperative and comfortable ORIENTATION/CONSCIOUSNESS: Yes awake HENMT: COMMON NORMALS: normocephalic, atraumatic and hearing grossly normal bilaterally HEAD & SCALP: normocephalic and atraumatic Resp: COMMON NORMALS: normal respiratory effort, No retractions, No use of accessory muscles and clear to auscultation bilaterally AUSCULTATION: clear to auscultation bilaterally Cardio: COMMON NORMALS: regular rate, regular rhythm and No murmurs present (Cardio) RATE: regular rate RHYTHM: regular rhythm GI: COMMON NORMALS: Soft to palpation and No hepatosplenomegaly present AUSCULTATION: Yes normoactive bowel sounds PALPATION: Yes Soft to palpation, No Tenderness to palpation present (GI), No Guarding due to palpation present (GI) and Yes No hepatosplenomegaly present Extremity: COMMON NORMALS: normal to inspection, capillary refill normal, no clubbing, cyanosis or edema, no calf tenderness and no pedal edema Skin: COMMON NORMALS: no rashes or lesions noted GENERAL SKIN EXAM: no rashes or lesions noted Course Vital Signs: Vital signs: Vital Signs Temperature 97.6 F 12/17/24 12:24 Pulse Rate 58 L 12/17/24 18:51 Respiratory Rate 16 12/17/24 16:44 Blood Pressure 124/61 12/17/24 18:51 Pulse Oximetry 98 12/17/24 18:51 Oxygen Delivery Me thod Room Air 12/17/24 16:44 MDM - General Adult Medical Decision Making Patient has cystitis and mild urinary retention he does still make some urine despite being on dialysis. Ramos left in place start antibiotics. Medical Records I reviewed the patient's medical records. Lab Data I reviewed the patient's lab results. 12/17/24 12:36 12/17/24 12:36 Radiology Impressions Chest X-Ray 12/17/24 14:30 Impression: Cardiomegaly. Abdomen/Pelvis CT 12/17/24 16:06 IMPRESSION: Urinary bladder wall thickening. Etiology infection/inflammation. Correlation with the UA. Laboratory Results WBC 4.70 10^3/uL (3.29-11.43) 12/17/24 12:36 RBC 3.94 10^6/uL (3.85-5.65) 12/17/24 12:36 Hgb 11.80 g/dL (11.27-16.99) 12/17/24 12:36 Hct 37.8 % (37-53) 12/17/24 12:36 MCV 95.9 fl (82-101) 12/17/24 12:36 MCH 29.9 pg (27-33) 12/17/24 12:36 MCHC 31.2 g/dL (30-55) 12/17/24 12:36 RDW 14.8 % (12.1-15.1) 12/17/24 12:36 Plt Count 214 10^3/cmm (157-399) 12/17/24 12:36 MPV 10.7 fL (7.4-10.4) H 12/17/24 12:36 Neut % (Auto) 66.1 % 12/17/24 12:36 Lymph % (Auto) 22.6 % 12/17/24 12:36 [place] % (Auto) 7.9 % 12/17/24 12:36 Eos % (Auto) 2.1 % 12/17/24 12:36 Baso % (Auto) 0.9 % 12/17/24 12:36 Neut # (Auto) 3.11 10^3/uL (1.8-7.7) 12/17/24 12:36 Lymph # (Auto) 1.1 10^3/uL (0.8-4.8) 12/17/24 12:36 [place] # (Auto) 0.4 10^3/uL (0.2-0.9) 12/17/24 12:36 Eos # (Auto) 0.1 10^3/uL (0.0-0.8) 12/17/24 12:36 Baso # (Auto) 0.0 10^3/uL (0.0-0.1) 12/17/24 12:36 Nucleated RBC % (auto) 0 % 12/17/24 12:36 Nucleated RBCs # 0.0 /100WBC 12/17/24 12:36 Sodium 135 mmol/L (136-145) L 12/17/24 12:36 Potassium 3.9 mmol/L (3.5-5.1) 12/17/24 12:36 Chloride 99 mmol/L (98-107) 12/17/24 12:36 Carbon Dioxide 21 mmol/L (22-29) L 12/17/24 12:36 Anion Gap 18.9 (5-19) 12/17/24 12:36 BUN 38 mg/dL (6-20) H 12/17/24 12:36 Creatinine 4.8 mg/dL (0.7-1.2) H 12/17/24 12:36 GFR Calculation 15.4 mL/min (90-130) L 12/17/24 12:36 Glucose 210 mg/dL (65-115) H 12/17/24 12:36 Calculated Osmolality 295 mOsm/kg (285-295) 12/17/24 12:36 Lactic Acid 1.1 mmol/L (0.5-2.2) 12/17/24 12:36 Calcium 8.7 mg/dL (8.5-10.5) 12/17/24 12:36 Total Bilirubin 0.5 mg/dL (0.15-1.2) 12/17/24 12:36 AST 25 U/L (0-40) 12/17/24 12:36 ALT 8 U/L (0-41) 12/17/24 12:36 Alkaline Phosphatase 73 U/L (40-130) 12/17/24 12:36 Total Protein 7.1 g/dL (6.6-8.7) 12/17/24 12:36 Albumin 3.7 g/dL (3.5-5.2) 12/17/24 12:36 Globulin 3.4 g/dL (1.3-4.6) 12/17/24 12:36 Urine Color [place] (Yellow) A 12/17/24 14:28 Urine Appearance Cloudy (CLEAR) A 12/17/24 14:28 Urine pH 5.0 (5-7) 12/17/24 14:28 Ur Specific [place] 1.024 (1.005-1.030) 12/17/24 14:28 Urine Protein 3+ (Negative) A 12/17/24 14:28 Urine Glucose (UA) Negative (Normal) 12/17/24 14:28 Urine Ketones Negative (Negative) 12/17/24 14:28 Urine Blood Negative (Negative) 12/17/24 14:28 Urine Nitrate Positive (Negative) A 12/17/24 14:28 Urine Bilirubin 1+ (Negative) H 12/17/24 14:28 Urine Urobilinogen 1.0 mg/dL (Negative) 12/17/24 14:28 Ur Leukocyte Esterase 1+ (Negative) A 12/17/24 14:28 Urine RBC 6-10 /hpf (0-2) 12/17/24 14:28 Urine WBC 0-5 /hpf (0-5) 12/17/24 14:28 Ur Squamous Epith Cells 0-5 /hpf (0-5) 12/17/24 14:28 Amorphous Sediment Trace /hpf 12/17/24 14:28 Urine Bacteria None seen /hpf (NONE) 12/17/24 14:28 Hyaline Casts 1.65 /lpf 12/17/24 14:28 All radiology interpretation(s) finalized by discharge Discharge Plan Discharge Patient Disposition: Home Clinical Impression: Cystitis, Acute urinary retention Condition: Stable Prescriptions: New ciprofloxacin HCl [Cipro] 500 mg tablet 500 mg PO BID Qty: 14 0RF No Action (DME) OneTouch Ultra Test Strip See Rx Instructions .ROUTE .MEDSUPPLY Qty: 10 Rx Instructions: As directed (DME) pen needle, diabetic [TechLITE Pen Needle] 31 gauge x 5/16 needle See Rx Instructions .ROUTE .MEDSUPPLY Qty: 1200 Rx Instructions: As directed (DME) lancets [TRUEplus Lancets] 33 gauge misc See Rx Instructions .ROUTE .MEDSUPPLY Qty: 100 Rx Instructions: As directed carvedilol 25 mg Tablet 25 mg PO BID@ Rx Instructions: must administer with a meal/food. Hold if systolic BP is below 90 or diastolic BP below 60. atorvastatin 10 mg Tablet 10 mg PO BEDTIME@ carbamazepine 200 mg Tablet 200 mg PO TID@,, amlodipine 10 mg Tablet 10 mg PO DAILY@09 benztropine 1 mg Tablet 1 mg PO BID@ multivitamin with folic acid [Daily-Sean (with folic acid)] 400 mcg tablet 1 tab PO DAILY@09 gabapentin 300 mg capsule 300 mg PO DAILY@09 pseudoephedrine-ibuprofen 30-200 mg Tablet 1 tab PO TID PRN (Reason: Congestion) isosorbide mononitrate 30 mg Tablet Extended Release 24 Hr 60 mg PO DAILY trazodone 100 mg tablet 200 mg PO QPM lidocaine 5 % adhesive patch,medicated See Rx Instructions .ROUTE .COMPLEX Rx Instructions: APPLY ONE PATCH TO SKIN ONCE daily before dialysis. MAY wear UP TO 12 hours. insulin aspart U-100 100 unit/mL (3 mL) insulin pen See Rx Instructions .ROUTE .COMPLEX Rx Instructions: Inject SUBCUTANEOUSLY FOUR TIMES DAILY PER sliding scale NEEDED with meals. max of 56 units EVERY DAY. SS: bs 141-180=2 units, 181-220=4 units,221-260=6 units, 261-300=8 units, 301-350=10 units, 651-400=12 units, 401 or greater=14 units. Cough Drops (menthol-pectin) 2.5-7 mg Lozenge 1 sayda PO Q2H PRN (Reason: sore throat or cough) Chapstick 1 applic topical BID PRN (Reason: chapped lips) hydralazine 50 mg Tablet 100 mg PO TID 30 Days Qty: 180 0RF cefdinir 300 mg capsule 300 mg PO .After Dialysis 9 Days Qty: 3 0RF Rx Instructions: take 300 mg after hemodialysis for 3 doses total aripiprazole 15 mg tablet 15 mg PO QPM lurasidone [Latuda] 120 mg tablet 60 mg PO BID@09,21 naloxone [Narcan] 4 mg/actuation spray,non-aerosol 1 spray INTRANASAL PRN PRN (Reason: Opioid Reversal) aspirin 325 mg tablet,delayed release (DR/EC) 325 mg PO DAILY fenofibrate 160 mg tablet 160 mg PO DAILY famotidine 20 mg tablet 20 mg PO BID acetaminophen [Tylenol] 325 mg Tablet 650 mg PO QID PRN (Reason: Pain) hydrocodone-acetaminophen 5-325 mg tablet 1 tab PO DAILY PRN (Reason: Pain) lisinopril 20 mg tablet 20 mg PO BEDTIME clonazepam 0.5 mg tablet See Rx Instructions .ROUTE .COMPLEX Rx Instructions: TAKE 1 TABLET BY MOUTH DAILY before dialysis on Sunday, Sunday, and Sunday for anxiety. loperamide 2 mg Tablet See Rx Instructions .ROUTE .COMPLEX PRN (Reason: Diarrhea) Rx Instructions: Take 2 tablets (4 mg) orally as needed at onset of diarrhea may repeat with each loose stool until symptoms controlled; do not exceed 8 mg per 24 hrs. Discharge Orders: Discharge ED (Routine); Ordered 12/17/24 Ordered By: Hamilton John Referrals: Ahsan Gilliam MD [Primary Care Provider] - Discharge Diet: Usual diet Discharge Activity: Increase activity as tolerated Patient Instructions: Ramos Catheter Care, Urinary Retention in Men (ED), Urinary Tract Infection in Men (ED), Opioid Safety, Pain Management Activity Restrictions/Additional Instructions: Thank you for choosing [facility] for your healthcare needs today. It is very important that you follow up as instructed or that you return to the Emergency Department should you have concerns or if your condition changes or worsens in any way. You are found to have a bladder infection as well as urinary retention and we discharged home with a Ramos leg bag and started on ciprofloxacin 500 twice daily for 7 days follow-up with urology will be arranged through case management. Print Language: Bolivian Coding Level of Care Code ED [employer] for Maria R Garrison
--- NOTE | 2024-12-17 14:30 | XR_ITS ---
WS: [id number] Portable AP upright chest, 12/17/2024 Clinical Data: dyspnea/cough Comparison: Portable chest, 12/13/2024 Findings: No nodules, masses or effusions are seen. The heart is enlarged. The pulmonary vascularity is not increased. No pneumonia or pneumothorax is seen. The dialysis catheter remains in the same position. Vertebroplasty cement is into lumbar vertebral bodies. XR/XR chest 1V portable [id number] Impression: Cardiomegaly.
[2024-12-17 14:54] LABS: Lactic Sepsis W/Reflex 1.1 mmol/L (0.5-2.2)
[2024-12-17 15:08] LABS: Bilirubin Urine 1+ (Negative); Blood Urine Negative (Negative); Glucose Urine UA Negative (Normal); Ketones Urine Negative (Negative); Leukocyte Esterase Urine 1+ (Negative); Nitrate Urine Positive (Negative); Protein Urine 3+ (Negative); Specific Gravity, Urine 1.024 (1.005-1.030); Urine Appearance Cloudy (CLEAR)
[2024-12-17 15:14] LABS: Add Urine Microscopic? YES; Bacteria Urine None Seen /hpf; Hyaline Casts Urine 1.65 /lpf; Squamous Epithelial Cell Urine 0-5 /hpf (0-5); WBC Urine 0-5 /hpf (0-5)
[2024-12-17 15:28] VITALS: BP 130/65; PULSE 56; RESP 16
[2024-12-17 15:56] LABS: Urine Color Orange (Yellow)
[2024-12-17 15:58] LABS: Add Urine Culture? Yes; Amorphous Sediment Urine TRACE /hpf; UA Slide Review UA Slide Review Perf
--- NOTE | 2024-12-17 16:06 | CTR_ITS ---
PROCEDURE INFORMATION: Exam: CT Abdomen And Pelvis Without Contrast Exam date and time: 12/17/2024 4:14 PM Age: 54 years old Clinical indication: Other: Hematuria TECHNIQUE: Imaging protocol: Computed tomography of the abdomen and pelvis without contrast. Radiation optimization: All CT scans at this facility use at least one of these dose optimization techniques: automated exposure control; mA and/or kV adjustment per patient size (includes targeted exams where dose is matched to clinical indication); or iterative reconstruction. COMPARISON: CT angio chest PE protcl [id number] 12/07/2024 9:35 PM RADIATION DOSE METRICS: Total DLP (mGy-cm): 328.63 FINDINGS: Tubes, catheters and devices: Ramos's catheter in the bladder. Heart: Cardiomegaly. Diaphragm: Small hiatal hernia. Liver: Normal. No mass. Gallbladder and biliary ducts: Normal. No calcified stones. No ductal dilation. Pancreas: Normal. No ductal dilation. Spleen: Normal. No splenomegaly. Adrenal glands: Hyperplasia of bilateral adrenal glands. Kidneys and ureters: Normal. No hydronephrosis. Stomach and bowel: Unremarkable. No obstruction. No mucosal thickening. Appendix: No evidence of appendicitis. Intraperitoneal space: Unremarkable. No free air. No significant fluid collection. Vasculature: Atherosclerotic calcification of the abdominal aorta and bilateral iliac arteries. Lymph nodes: Unremarkable. No enlarged lymph nodes. Urinary bladder: Urinary bladder wall thickening. Reproductive: Unremarkable as visualized. Bones/joints: Degenerative changes of the spine. Vertebroplasty at L2-L3 vertebra. Extensive degenerative changes at L2 and L3 level. Soft tissues: Unremarkable. CT/CT kidney stone [id number] IMPRESSION: Urinary bladder wall thickening. Etiology infection/inflammation. Correlation with the UA.
[2024-12-17 16:44] VITALS: BP 144/64; PULSE 59; RESP 16; O2SAT 99
[2024-12-17 18:51] VITALS: BP 124/61; PULSE 58; O2SAT 98
== END 2024-12-17 18:54 | disposition home or self-care (01) ==
PROVIDERS: Family Medicine; Emergency Provider Emergency Medicine; PCP Family Medicine
DX: N30.90 Cystitis, unspecified without hematuria (principal); R33.9 Retention of urine, unspecified; Z79.4 Long term (current) use of insulin; Z72.0 Tobacco use; E78.2 Mixed hyperlipidemia; E11.22 Type 2 diabetes mellitus with diabetic chronic kidney disease; I12.0 Hypertensive chronic kidney disease with stage 5 chronic kidney disease or end stage renal disease; N18.6 End stage renal disease
CPT/HCPCS: 51702; 51798; 71045; 74176; 80053; 81001; 83605; 85025; 87086; 99284

== ENCOUNTER 2024-12-20 09:22 | Emergency (ER) | payer MEDICAID, SELFPAY ==
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
[2024-12-20 09:28] VITALS: BP 114/54; PULSE 71; RESP 18; TEMP 36.7; O2SAT 97
[2024-12-20 09:50] VITALS: BP 113/57; PULSE 71; O2SAT 98
[2024-12-20 09:58] VITALS: BP 113/57; PULSE 71; O2SAT 98
== END 2024-12-20 09:58 | disposition home or self-care (01) ==
PROVIDERS: Emergency Provider Emergency Medicine; PCP Family Medicine
DX: Z03.89 Encounter for observation for other suspected diseases and conditions ruled out (principal); Z72.0 Tobacco use; E78.2 Mixed hyperlipidemia; E11.22 Type 2 diabetes mellitus with diabetic chronic kidney disease; I12.0 Hypertensive chronic kidney disease with stage 5 chronic kidney disease or end stage renal disease; N18.6 End stage renal disease
CPT/HCPCS: 99281

== ENCOUNTER 2025-01-23 14:44 | Inpatient (IN) | payer MEDICAID, SELFPAY ==
[2025-01-23] VITALS (11 sets, daily range): BP systolic 96–131; BP diastolic 47–63; PULSE 46–71; RESP 12–20; TEMP 36.6–36.8; O2SAT 95–99; BMI 18.8
--- NOTE | 2025-01-23 14:35 | XR_ITS ---
WS: [id number] Exam: XR chest 1V portable [id number] Date/Time of Exam: 01/23/2025 2:54 PM Reason For Exam: Weakness Comparison 12/17/2024. Lungs are fully expanded and clear. The heart is enlarged but unchanged in size. No pleural effusions. A double-lumen right-sided dialysis catheter ends in the right atrium. No pleural effusion. Bony structures are intact. XR/XR chest 1V portable [id number] IMPRESSION: 1. Cardiac enlargement unchanged. No acute process noted.
--- NOTE | 2025-01-23 14:46 | W.ED.GENADLT ---
HPI - General Adult General: Chief complaint: General Medical Stated complaint: Hypotension History of Present Illness: 54-year-old man with a history of end-stage renal disease on dialysis, diabetes, Physical disability who resides in a home who presents to the emergency room from dialysis with low blood pressure. EMS reports he was a bit bradycardic and hypotensive at dialysis. He said he is weight was down some. He did not end up getting dialysis. EMS gave him about 100 cc of fluid and by the time he arrives here his blood pressure is 107/58 and his pulse is 71. Related Data Home Medications ?Medication ?Instructions ?Recorded ?Confirmed amlodipine 10 mg tablet 10 mg PO DAILY@03/30/23 01/23/25 benztropine 1 mg tablet 1 mg PO BID@,03/30/23 01/23/25 carbamazepine 200 mg tablet 200 mg PO TID@,,03/30/23 01/23/25 carvedilol 25 mg tablet 25 mg PO BID@,03/30/23 01/23/25 multivitamin with folic acid 400 1 tab PO DAILY@03/30/23 01/23/25 mcg tablet (Daily-Sean (with folic acid)) gabapentin 300 mg capsule 300 mg PO DAILY@10/24/23 01/23/25 aripiprazole 15 mg tablet 15 mg PO QPM 12/07/23 01/23/25 lurasidone 120 mg tablet (Latuda) 120 mg PO QPM 12/07/23 01/23/25 naloxone 4 mg/actuation nasal 1 spray intranasal PRN PRN Opioid 01/30/24 01/23/25 spray (Narcan) Reversal aspirin 325 mg tablet,delayed 325 mg PO DAILY 02/15/24 01/23/25 release fenofibrate 160 mg tablet 160 mg PO DAILY 02/15/24 01/23/25 acetaminophen 325 mg tablet 650 mg PO QID PRN Pain 09/04/24 01/23/25 (Tylenol) clonazepam 0.5 mg tablet See Rx Instructions .Route .COMPLEX 09/04/24 01/23/25 famotidine 20 mg tablet 20 mg PO BID 09/04/24 01/23/25 hydrocodone 5 mg-acetaminophen 325 1 tab PO DAILY PRN Pain 09/04/24 01/23/25 mg tablet lisinopril 20 mg tablet 20 mg PO BEDTIME 09/04/24 01/23/25 loperamide 2 mg tablet See Rx Instructions .Route 09/04/24 01/23/25 .COMPLEX PRN Diarrhea insulin aspart U-100 100 unit/mL See Rx Instructions .Route .COMPLEX 12/07/24 01/23/25 (3 mL) subcutaneous pen (Novolog FlexPen U-100 Insulin aspart) isosorbide mononitrate 30 mg 60 mg PO DAILY 12/07/24 01/23/25 tablet,extended release 24 hr trazodone 100 mg tablet 200 mg PO QPM 12/07/24 01/23/25 atorvastatin 10 mg tablet 10 mg PO QPM 01/23/25 01/23/25 hydralazine 50 mg tablet 75 mg PO QID 01/23/25 01/23/25 Allergies Allergy/AdvReac Type Severity Reaction Status Date / Time No Known Allergies Allergy Verified 12/14/24 20:19 Review of Systems Narrative: Constitutional symptoms: Negative except as documented in HPI. Skin symptoms: Negative except as documented in HPI. Eye symptoms: Negative except as documented in HPI. ENMT symptoms: Negative except as documented in HPI. Respiratory symptoms: Negative except as documented in HPI. Cardiovascular symptoms: Negative except as documented in HPI. Gastrointestinal symptoms: Negative except as documented in HPI. Genitourinary symptoms: Negative except as documented in HPI. Musculoskeletal symptoms: Negative except as documented in HPI. Neurologic symptoms: Negative except as documented in HPI. Psychiatric symptoms: Negative except as documented in HPI. Endocrine symptoms: Negative except as documented in HPI. PFS ED PFSH: Medical History Malignant hypertension ESRD (end stage renal disease) Hyperlipemia, mixed Acute renal failure Acute kidney injury superimposed on CKD Acute hyponatremia Hyponatremia Anemia Hypervolemia Tobacco abuse Diabetes Social History Smoking and tobacco/nicotine status: current every day tobacco/nicotine user Physical Exam Narrative: EXAM NARRATIVE: General: Alert, no acute distress. Skin: Warm, dry. Head: Normocephalic, atraumatic. Neck: Supple, trachea midline. Eye: Extraocular movements are intact. Ears, nose, mouth and throat: mucosa moist. Cardiovascular: Regular, Normal peripheral perfusion. Respiratory: Lungs are clear to auscultation, respirations are non-labored, breath sounds are equal, Symmetrical chest wall expansion. Gastrointestinal: Soft, Nontender, Non distended Musculoskeletal: Normal ROM, no deformity. Neurological: Patient is alert and follows some commands. He appears to be at or near his baseline according to caregivers. Psychiatric: at baseline Course Vital Signs: Vital signs: Vital Signs Temperature 97.8 F 01/23/25 14:35 Pulse Rate 71 01/23/25 14:35 Respiratory Rate 18 01/23/25 14:35 Blood Pressure 107/58 01/23/25 14:35 Pulse Oximetry 98 01/23/25 14:35 Oxygen Delivery Me thod Room Air 01/23/25 14:35 MDM - General Adult Medical Decision Making Medical decision making: Differential diagnosis for patient presenting with hypotension including but not limited to and based on the above HPI, review of systems and physical exam: Sepsis. Dehydration. Renal failure. Electrolyte abnormalities. Anemia. Congestive heart failure. Hypotension. Coronary syndrome. Hepatitis. Cirrhosis. Infections such as pneumonia, urinary tract infection, [place] illness, Cellulitis, Viral infections including influenza and Covid-19. Workup: labwork and lab/exam driven imaging ordered to evaluate, rule in and rule out above pathologies. Chest x-ray: Stable cardiomegaly. No acute process. No infiltrate. No pneumothorax. This was reviewed and interpreted by myself the emergency room physician. I also reviewed the radiology report. Lab Review: Laboratory results were reviewed and interpreted by myself the emergency room physician. No leukocytosis. Stable anemia. BUN/creatinine are 18 and 2.3 which would be expected in this dialysis patient. Urinalysis is significant for urinary tract infection with greater than 100 whites. Excessive bacteria and leukocyte esterase with no nitrite. Given that there is no nitrate I am going to cover for gram-positive's as well. I reviewed the patient's medical record. Reexamination: Patient remained stable. No increased work of breathing. No altered mental status. No focal motor deficits. Blood pressures remained in the low 100s systolic. Heart rate has remained above 70. Consultation: Spoke with Dr. Valdes who is on-call for the hospital service who agrees to admission. Given that the patient was hypotensive had has a fairly significant urinary tract infection and is immunocompromise with being a dialysis patient I am going to treat him as if he were septic. Assessment and plan: Urinary tract infection Hypotension Possible sepsis - patient is he received around 700 cc of fluid with EMS and my fluid. Given he is a dialysis patient and prone to fluid overload and his vitals have normalized I am not going to continue with a full 30/kg bolus. -Broad-spectrum antibiotics were administered. Zyvox and meropenem. -Sepsis quality measures. -Lactic acid with a reflex was ordered. -Blood cultures were ordered. -I discussed the patient with the hospitalist on-call who is admitting the patient. - Discussed findings and plan with patient. Answered any questions. - All laboratory values were reviewed and interpreted personally by myself, the ER physician - All imaging was reviewed and interpreted personally by myself, the ER physician. - Evaluation and treatment of this problem were appropriate in the emergency setting Critical care -I spent a total of >35 minutes of critical care time managing the patient, independent of any other practitioner. -The time involved in the performance of separately reportable procedures was not counted towards critical care time. Lab Data 01/23/25 14:53 01/23/25 14:53 Radiology Impressions Chest X-Ray 01/23/25 14:35 IMPRESSION: 1. Cardiac enlargement unchanged. No acute process noted. Laboratory Results WBC 3.81 10^3/uL (3.29-11.43) 01/23/25 14:53 RBC 2.74 10^6/uL (3.85-5.65) L 01/23/25 14:53 Hgb 8.30 g/dL (11.27-16.99) L 01/23/25 14:53 Hct 26.3 % (37-53) L 01/23/25 14:53 MCV 96.0 fl (82-101) 01/23/25 14:53 MCH 30.3 pg (27-33) 01/23/25 14:53 MCHC 31.6 g/dL (30-55) 01/23/25 14:53 RDW 17.4 % (12.1-15.1) H 01/23/25 14:53 Plt Count 167 10^3/cmm (157-399) 01/23/25 14:53 MPV 10.0 fL (7.4-10.4) 01/23/25 14:53 Neut % (Auto) 69.2 % 01/23/25 14:53 Lymph % (Auto) 21.0 % 01/23/25 14:53 [place] % (Auto) 8.4 % 01/23/25 14:53 Eos % (Auto) 0.8 % 01/23/25 14:53 Baso % (Auto) 0.3 % 01/23/25 14:53 Neut # (Auto) 2.64 10^3/uL (1.8-7.7) 01/23/25 14:53 Lymph # (Auto) 0.8 10^3/uL (0.8-4.8) 01/23/25 14:53 [place] # (Auto) 0.3 10^3/uL (0.2-0.9) 01/23/25 14:53 Eos # (Auto) 0.0 10^3/uL (0.0-0.8) 01/23/25 14:53 Baso # (Auto) 0.0 10^3/uL (0.0-0.1) 01/23/25 14:53 Nucleated RBC % (auto) 0 % 01/23/25 14:53 Nucleated RBCs # 0.0 /100WBC 01/23/25 14:53 Sodium 139 mmol/L (136-145) 01/23/25 14:53 Potassium 4.5 mmol/L (3.5-5.1) 01/23/25 14:53 Chloride 104 mmol/L (98-107) 01/23/25 14:53 Carbon Dioxide 26 mmol/L (22-29) 01/23/25 14:53 Anion Gap 13.5 (5-19) 01/23/25 14:53 BUN 18 mg/dL (6-20) 01/23/25 14:53 Creatinine 2.3 mg/dL (0.7-1.2) H 01/23/25 14:53 GFR Calculation 35.9 mL/min (90-130) L 01/23/25 14:53 Glucose 170 mg/dL (65-115) H 01/23/25 14:53 Calculated Osmolality 294 mOsm/kg (285-295) 01/23/25 14:53 Lactic Acid 1.0 mmol/L (0.5-2.2) 01/23/25 14:53 Calcium 8.4 mg/dL (8.5-10.5) L 01/23/25 14:53 Total Bilirubin 0.4 mg/dL (0.15-1.2) 01/23/25 14:53 AST 27 U/L (0-40) 01/23/25 14:53 ALT 13 U/L (0-41) 01/23/25 14:53 Alkaline Phosphatase 88 U/L (40-130) 01/23/25 14:53 Troponin T Baseline 92 ng/L (0-15) H 01/23/25 14:53 Troponin T 120 Minute 86.22 ng/L (0-15) H 01/23/25 16:43 Delta Troponin T -5.78 ABS# (0-10) L 01/23/25 16:43 Total Protein 5.6 g/dL (6.6-8.7) L 01/23/25 14:53 Albumin 3.4 g/dL (3.5-5.2) L 01/23/25 14:53 Globulin 2.2 g/dL (1.3-4.6) 01/23/25 14:53 Urine Color Yellow (Yellow) 01/23/25 15:58 Urine Appearance Turbid (CLEAR) A 01/23/25 15:58 Urine pH 7.5 (5-7) 01/23/25 15:58 Ur Specific [place] 1.010 (1.005-1.030) 01/23/25 15:58 Urine Protein 3+ (Negative) A 01/23/25 15:58 Urine Glucose (UA) Negative (Normal) 01/23/25 15:58 Urine Ketones Negative (Negative) 01/23/25 15:58 Urine Blood Negative (Negative) 01/23/25 15:58 Urine Nitrate Negative (Negative) 01/23/25 15:58 Urine Bilirubin Negative (Negative) 01/23/25 15:58 Urine Urobilinogen 1.0 mg/dL (Negative) 01/23/25 15:58 Ur Leukocyte Esterase 3+ (Negative) A 01/23/25 15:58 Urine RBC 6-10 /hpf (0-2) 01/23/25 15:58 Urine WBC >100 /hpf (0-5) H 01/23/25 15:58 Ur Squamous Epith Cells 0-5 /hpf (0-5) 01/23/25 15:58 Amorphous Sediment Not Reportable 01/23/25 15:58 Urine Bacteria Exceeds /hpf (NONE) 01/23/25 15:58 Hyaline Casts 0.40 /lpf 01/23/25 15:58 All radiology interpretation(s) finalized by discharge Discharge Plan Discharge Patient Disposition: Admitted As Inpatient Clinical Impression: Urinary tract infection, Sepsis, End stage renal disease on dialysis, Hypotension Condition: Stable Coding Level of Care Code ED Health Care Facilities Inspector for Maria R Garrison
[2025-01-23 15:12] LABS: Basophils % 0.3 %; Eosinophils % 0.8 %; Hematocrit 26.3 % (37-53); Lymphocytes # 0.8 10^3/uL (0.8-4.8); Mean Corpuscular HGB Conc 31.6 g/dL (30-55); Mean Corpuscular Hemoglobin 30.3 pg (27-33); Monocytes # 0.3 10^3/uL (0.2-0.9); Monocytes % 8.4 %; Neutrophils # 2.64 10^3/uL (1.8-7.7); Neutrophils % 69.2 %; Nucleated Red Blood Cells % 0 %; Platelet Count 167 10^3/cmm (157-399); Red Blood Count 2.74 10^6/uL (3.85-5.65); Red Cell Distribution Width 17.4 % (12.1-15.1); White Blood Count 3.81 10^3/uL (3.29-11.43)
[2025-01-23] MEDS: sodium chloride 0.9% 500 ML 999 ML IV (15:22)
[2025-01-23 15:24] LABS: Alanine Aminotransferase 13 U/L (0-41); Albumin Level 3.4 g/dL (3.5-5.2); Alkaline Phosphatase 88 U/L (40-130); Anion Gap 13.5 (5-19); Aspartate Amino Transferase 27 U/L (0-40); Blood Urea Nitrogen 18 mg/dL (6-20); Calcium 8.4 mg/dL (8.5-10.5); Carbon Dioxide 26 mmol/L (22-29); Chloride 104 mmol/L (98-107); Creatinine Clr Calc Pharmacy 28.8697; Globulin 2.2 g/dL (1.3-4.6); Glomerular Filtration Rate 35.9 mL/min (90-130); Glucose 170 mg/dL (65-115); Osmolality Calculated 294 mOsm/kg (285-295); Potassium 4.5 mmol/L (3.5-5.1); Sodium 139 mmol/L (136-145); Total Bilirubin 0.4 mg/dL (0.15-1.2); Total Protein 5.6 g/dL (6.6-8.7)
[2025-01-23 15:27] LABS: Troponin(5th) Baseline 92 ng/L (0-15)
[2025-01-23 17:08] LABS: Bilirubin Urine Negative (Negative); Blood Urine Negative (Negative); Glucose Urine UA Negative (Normal); Ketones Urine Negative (Negative); Leukocyte Esterase Urine 3+ (Negative); Nitrate Urine Negative (Negative); Protein Urine 3+ (Negative); Urine Appearance Turbid (CLEAR); Urine Color Yellow (Yellow); pH Urine 7.5 (5-7)
[2025-01-23 17:10] LABS: Bacteria Urine EXCEEDS /hpf; Squamous Epithelial Cell Urine 0-5 /hpf (0-5); WBC Urine >100 /hpf (0-5)
[2025-01-23 17:12] LABS: Troponin 5 2HR 86.22 ng/L (0-15)
[2025-01-23 17:17] LABS: Add Urine Culture? Yes
[2025-01-23 17:22] LABS: Troponin 5 2HR Delta -5.78 ABS# (0-10)
--- NOTE | 2025-01-23 17:41 | ECG_ITS ---
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1970 Requested By: Estephanie Lynn Order Number: [id number] Reading MD: JONATHAN FALLON Measurements Intervals [place] Rate: 48 P: 0 MS: 0 QRS: -21 QRSD: 145 T: 7 QT: 508 QTc: 458 Interpretive Statements UNCERTAIN REGULAR RHYTHM BORDERLINE LEFT AXIS DEVIATION [QRS AXIS < -20] INTRAVENTRICULAR CONDUCTION DELAY [130+ ms QRS DURATION] Compared to ECG 12/07/2024 16:45:30 Sinus bradycardia no longer present ST (T wave) deviation no longer present Prolonged QT interval no longer present Electronically Signed On 01-26-2025 21:01:42 CDT by JONATHAN FALLON [email or web address]
--- NOTE | 2025-01-23 17:53 | PM.HP ---
Providers/Chief Complaint Primary Care Provider: Ahsan Gilliam MD Chief Complaint: Hypotension History of Present Illness Tyrese Leach is a 54 year old male with a past medical history of end-stage renal disease on dialysis, currently resident of a prison, mild intellectual disability, nonverbal, chronically wheelchair-bound, who presents [facility] due to low blood pressures, altered mental status. Currently patient is alert to person, not to place, to time, does not follow commands, patient's caregiver at the prison is at bedside. He tends to hold onto urine, urinates maybe twice a day, at dialysis today noted that he had a low blood pressure, he was given fluids and sent to [facility] for evaluation. Currently patient is alert awake, blood pressure 107/58, pulse 71, he is 98% on room air temperature 97.8, UA with findings of UTI, he did not get dialysis today does not look fluid overloaded, Review of Systems General: Reports: ROS unobtainable due to mental status Medications/Allergies Home Medications ?Medication ?Instructions ?Recorded ?Confirmed ?Last Taken ?Type amlodipine 10 mg tablet 10 mg PO DAILY@03/30/23 01/23/25 01/23/25 History benztropine 1 mg tablet 1 mg PO BID@,03/30/23 01/23/25 01/23/25 History carbamazepine 200 mg tablet 200 mg PO TID@,,03/30/23 01/23/25 01/23/25 History carvedilol 25 mg tablet 25 mg PO BID@,03/30/23 01/23/25 01/23/25 History multivitamin with folic acid 400 1 tab PO DAILY@03/30/23 01/23/25 01/23/25 History mcg tablet (Daily-Sean (with folic acid)) gabapentin 300 mg capsule 300 mg PO DAILY@10/24/23 01/23/25 01/23/25 History aripiprazole 15 mg tablet 15 mg PO QPM 12/07/23 01/23/25 01/22/25 History lurasidone 120 mg tablet (Latuda) 120 mg PO QPM 12/07/23 01/23/25 01/22/25 History naloxone 4 mg/actuation nasal 1 spray intranasal PRN PRN Opioid 01/30/24 01/23/2502/13/24 History spray (Narcan) Reversal aspirin 325 mg tablet,delayed 325 mg PO DAILY 02/15/24 01/23/25 01/23/25 History release fenofibrate 160 mg tablet 160 mg PO DAILY 02/15/24 01/23/25 01/23/25 History acetaminophen 325 mg tablet 650 mg PO QID PRN Pain 09/04/24 01/23/25 Unknown History (Tylenol) clonazepam 0.5 mg tablet See Rx Instructions .Route .COMPLEX 09/04/24 01/23/25 01/23/25 History famotidine 20 mg tablet 20 mg PO BID 09/04/24 01/23/25 01/23/25 History hydrocodone 5 mg-acetaminophen 325 1 tab PO DAILY PRN Pain 09/04/24 01/23/25 01/23/25 History mg tablet lisinopril 20 mg tablet 20 mg PO BEDTIME 09/04/24 01/23/25 01/22/25 History loperamide 2 mg tablet See Rx Instructions .Route 09/04/24 01/23/25 12/17/24 History .COMPLEX PRN Diarrhea insulin aspart U-100 100 unit/mL See Rx Instructions .Route .COMPLEX 12/07/24 01/23/25 12/17/24 History (3 mL) subcutaneous pen (Novolog FlexPen U-100 Insulin aspart) isosorbide mononitrate 30 mg 60 mg PO DAILY 12/07/24 01/23/25 01/23/25 History tablet,extended release 24 hr trazodone 100 mg tablet 200 mg PO QPM 12/07/24 01/23/25 01/22/25 History atorvastatin 10 mg tablet 10 mg PO QPM 01/23/25 01/23/25 01/22/25 History hydralazine 50 mg tablet 75 mg PO QID 01/23/25 01/23/25 01/23/25 History Allergies Allergy/AdvReac Type Severity Reaction Status Date / Time No Known Allergies Allergy Verified 12/14/24 20:19 PFSH Acute PFSH: Medical History Malignant hypertension ESRD (end stage renal disease) Hyperlipemia, mixed Acute renal failure Acute kidney injury superimposed on CKD Acute hyponatremia Hyponatremia Anemia Hypervolemia Tobacco abuse Diabetes Social History Smoking and tobacco/nicotine status: current every day tobacco/nicotine user Vitals/I&O/Wt Last Vital Signs Temp 97.8 F 01/23/25 14:35 Pulse 71 01/23/25 14:35 Resp 18 01/23/25 14:35 BP 107/58 01/23/25 14:35 Pulse Ox 98 01/23/25 14:35 O2 Del Method Room Air 01/23/25 14:35 01/23/25 01/23/25 01/23/25 06:59 14:59 22:59 Intake Total 500 / 500 Balance 500 / 500 Weight last 48 hrs Weight 56.245 kg Physical Exam Const: COMMON NORMALS: no acute distress EXAM LIMITATIONS: altered mental status ORIENTATION/CONSCIOUSNESS: Yes awake and Yes confused; not oriented to person, not oriented to place and not oriented to time Eye: COMMON NORMALS: Equal, round and reactive pupils present Neck/C-Spine: COMMON NORMALS: no JVD Resp: COMMON NORMALS: normal respiratory effort, No retractions, No use of accessory muscles and clear to auscultation bilaterally AUSCULTATION: clear to auscultation bilaterally Cardio: COMMON NORMALS: regular rate, regular rhythm, S1 normal heart sound present and S2 normal heart sound present RATE: regular rate RHYTHM: regular rhythm HEART SOUNDS: S1 normal heart sound present and S2 normal heart sound present GI: COMMON NORMALS: Normal to inspection, nondistended, normoactive bowel sounds present, Soft to palpation and non-tender Extremity: COMMON NORMALS: no pedal edema Neuro: OTHER: Does not follow neurologic testing Sepsis: Is patient septic: Yes Focused sepsis exam performed: Yes Focused sepsis exam: DP PT pulses diminished bilaterally, cap refill greater than 2 seconds no mottling Date exam was performed: 01/23/25 Time exam was performed: 17:20 Data 01/23/25 14:53 01/23/25 14:53 Micro: Microbiology 01/23/25 14:56 Blood Culture - Preliminary Blood SPECIMEN COLLECTED 01/23/25 14:53 Blood Culture - Preliminary Blood SPECIMEN COLLECTED A&P Assessment and plan (1) Sepsis: (2) End stage renal disease on dialysis: (3) Complicated UTI (urinary tract infection): Plan Acute encephalopathy, metabolic - With evidence of sepsis, given evidence of hypotension, altered mental status, source of infection UTI - Secondary to complicated UTI - History of ESBL E. coli UTI, history of MRSA Plan - Urine culture - Blood culture - Monitor mentation closely - Vancomycin - Meropenem - He is on a dysphagia diet at the [facility], moderately thickened, placed on dysphagia level 4 diet, moderately thickened - Full code - Lovenox for DVT prophylaxis History of fluid overload, respiratory failure, will avoid fluid therapy due to risk of fluid overload Type 2 diabetes mellitus, low-dose sign scale End-stage renal disease on dialysis, consult nephrology for dialysis, Continue home Tegretol, check Tegretol level Intellectual disability, nonverbal Hypertension hold blood pressure medications PDMP PDMP Reviewed: Not Reviewed Attestations Medical Necessity Statement*: Patient requires hospitalization, inpatient, greater than 2 midnights, for acute encephalopathy presyncope UTI, sepsis Diagnoses Sepsis A41.9 End stage renal disease on dialysis N18.6; Z99.2 Complicated UTI (urinary tract infection) N39.0
--- NOTE | 2025-01-23 17:56 | CTR_ITS ---
PROCEDURE INFORMATION: Exam: CT Abdomen And Pelvis Without Contrast Exam date and time: 01/23/2025 6:17 PM Age: 54 years old Clinical indication: Other: Hypotension/uti; UTI with hypotension. History of esrd. TECHNIQUE: Imaging protocol: Computed tomography of the abdomen and pelvis without contrast. Radiation optimization: All CT scans at this facility use at least one of these dose optimization techniques: automated exposure control; mA and/or kV adjustment per patient size (includes targeted exams where dose is matched to clinical indication); or iterative reconstruction. COMPARISON: CT kidney stone [id number] 12/17/2024 4:14 PM RADIATION DOSE METRICS: Total DLP (mGy-cm): 621.13 FINDINGS: Tubes, catheters and devices: Partially visualized catheter terminates at the lower right atrium near the inferior cavoatrial junction. Lungs: Subsegmental atelectasis and/or scarring at the imaged lower lungs. Smooth interlobular septal thickening at the imaged lower lobes suggesting interstitial edema. Pleural spaces: Small bilateral pleural effusions. Esophagus: Fluid within the distal esophagus. Liver: Normal. No mass. Gallbladder and biliary ducts: Normal. No calcified stones. No ductal dilation. Pancreas: Normal. No ductal dilation. Spleen: Normal. No splenomegaly. Adrenal glands: Normal. No mass. Kidneys and ureters: Normal. No hydronephrosis. Stomach and bowel: No bowel dilatation to suggest obstruction. Moderate colonic stool burden. Appendix: No evidence of appendicitis. Intraperitoneal space: Mild diffuse mesenteric graying/edema. No free air or focal organized fluid collection. Vasculature: Moderate systemic atherosclerotic calcification without abdominal aortic aneurysm. Lymph nodes: Unremarkable. No enlarged lymph nodes. Urinary bladder: Mild circumferential urinary bladder wall thickening. Reproductive: Unremarkable as visualized. Bones/joints: No acute fracture. Augmented L2 and L3 vertebral bodies. Degenerative change along the spine with stable severe appearance at L2-L3. Soft tissues: Bilateral gynecomastia. Mild diffuse body wall edema. Small umbilical hernia containing nondilated, non thickened small bowel. CT/CT abdomen pelvis wo con [id number] IMPRESSION: 1. Urinary bladder wall thickening compatible with cystitis. 2. Findings of fluid overload/third-spacing with small bilateral pleural effusions, pulmonary interstitial edema, diffuse body wall and mesenteric graying/edema. 3. Fluid within the distal esophagus may be on the basis of gastroesophageal reflux or esophageal dysmotility. 4. Additional chronic and incidental findings as above.
--- NOTE | 2025-01-23 17:56 | CTR_ITS ---
PROCEDURE INFORMATION: Exam: CT Head Without Contrast Exam date and time: 01/23/2025 6:15 PM Age: 54 years old Clinical indication: Altered mental status/memory loss; Lethargy with confusion. Currently positive for UTI. ; Additional info: AMS TECHNIQUE: Imaging protocol: Computed tomography of the head without contrast. Radiation optimization: All CT scans at this facility use at least one of these dose optimization techniques: automated exposure control; mA and/or kV adjustment per patient size (includes targeted exams where dose is matched to clinical indication); or iterative reconstruction. COMPARISON: CT head wo con* [id number] 12/07/2024 9:32 PM RADIATION DOSE METRICS: Total DLP (mGy-cm): 2010.35 FINDINGS: Brain: Age-related brain parenchymal atrophy. No hemorrhage. Chronic microvascular ischemic changes of the white matter. No mass effect. Cerebral ventricles: No ventriculomegaly. Paranasal sinuses: Visualized sinuses are unremarkable. No fluid levels. Mastoid air cells: Visualized mastoid air cells are well aerated. Bones: Unremarkable. No acute fracture. Soft tissues: Unremarkable. CT/CT head wo con* [id number] IMPRESSION: No acute intracranial abnormality. Senescent changes.
[2025-01-23 18:06] LABS: Influenza A NEGATIVE (Negative); Influenza B NEGATIVE (Negative); Respiratory Syncytial Virus Ce NEGATIVE (Negative); SARS-CoV-2 PCR NEGATIVE (Negative)
--- NOTE | 2025-01-23 18:51 | PHA.VACGOAL ---
Vancomycin Goal - Goal Vancomycin Goal:: 15-20 mg/L Vancomycin Indication:: Other (Sepsis) - Therapy Current therapy:: Meropenem Day of therpy:: Day []of [] . Day 1 of therapy. Actual body weight (kg): 124 lb - Data Labs: WBC 3.81 10^3/uL (3.29-11.43) 01/23/25 14:53 RBC 2.74 10^6/uL (3.85-5.65) L 01/23/25 14:53 Hgb 8.30 g/dL (11.27-16.99) L 01/23/25 14:53 Hct 26.3 % (37-53) L 01/23/25 14:53 MCV 96.0 fl (82-101) 01/23/25 14:53 MCH 30.3 pg (27-33) 01/23/25 14:53 MCHC 31.6 g/dL (30-55) 01/23/25 14:53 RDW 17.4 % (12.1-15.1) H 01/23/25 14:53 Sodium 139 mmol/L (136-145) 01/23/25 14:53 Potassium 4.5 mmol/L (3.5-5.1) 01/23/25 14:53 Chloride 104 mmol/L (98-107) 01/23/25 14:53 Carbon Dioxide 26 mmol/L (22-29) 01/23/25 14:53 Anion Gap 13.5 (5-19) 01/23/25 14:53 BUN 18 mg/dL (6-20) 01/23/25 14:53 Creatinine 2.3 mg/dL (0.7-1.2) H 01/23/25 14:53 GFR Calculation 35.9 mL/min (90-130) L 01/23/25 14:53 Patient is on hemodialysis. During his inpatient stay in early November, he was on a MWF hemodialysis schedule. He did not receive dialysis today. Last dialysis session:: Last session (Unknown) Drug administration history:: Linezolid and cefepime originally ordered in ED were not administered as regimen was changed to vancomycin and meropenem. Treatment plan:: new consult Regimen:: Vancomycin 1.25gm loading dose ordered. Additional doses to be administered when serum level is < 15 mg/dL. Follow up:: The pharmacist will talk with Mr. Leach's nurse each day to to determine if hemodialysis is planned for that day. On hemodialysis days, a dose of vancomycin will be ordered for administration after the dialysis session is complete. Post-HD doses will be wither 500mg or 750mg, based on his pre-HD vancomycin serum level. A vancomycin serum level is ordered for 01/24/25 @ 1900. Rationale:: Mr. Leach was found to have bacteremia in early November and is immunocompromised due to receiving chronic hemodialysis. Mr. Leach also meets sepsis criteria. For these reasons, his goal trough is set at 15-20 mg/dL.
[2025-01-23] MEDS: meropenem 500 mg SDV IVP (18:56)
[2025-01-23] MEDS: vancomycin 1,250 MG/250 ML PIGGYBACK 166.67 MG IV (19:00)
[2025-01-23 20:33] LABS: Glucose Point of Care 141 mg/dL (70-110)
[2025-01-23] MEDS: enoxaparin 30 mg/0.3 mL Syringe SUBCUT (20:50)
[2025-01-23] MEDS: insulin lispro 100 unit/1 mL SUBCUT (20:50)
[2025-01-23] MEDS: pantoprazole 40 mg SDV IVP (20:50)
[2025-01-23] MEDS: ARIPiprazole 10 mg Tablet 15 MG PO (20:51)
[2025-01-23] MEDS: trazodone 100 mg Tablet 200 MG PO (20:51)
[2025-01-23] MEDS: lurasidone 20 mg Tablet 40 MG PO (20:51)
[2025-01-23] MEDS: carBAMazepine 200 mg Tablet PO (20:51)
[2025-01-23] MEDS: ATORVASTATIN 10 MG TABLET PO (20:51)
[2025-01-23] MEDS: benztropine 1 mg Tablet PO (20:52)
--- NOTE | 2025-01-23 21:10 | ECG_ITS ---
[facility] Test Date: 2025-01-23 Pat Name: Tyrese Leach Department: Room: 276 Gender: Male Product Ambassador: : 1970 Requested By: Estephanie Lynn Order Number: [id number] Reading MD: JONATHAN FALLON Measurements Intervals [place] Rate: 51 P: 0 RI: 0 QRS: -37 QRSD: 144 T: -20 QT: 505 QTc: 466 Interpretive Statements UNCERTAIN REGULAR RHYTHM LEFT AXIS DEVIATION [QRS AXIS < -30] INTRAVENTRICULAR CONDUCTION DELAY [130+ ms QRS DURATION] Compared to ECG 01/23/2025 17:41:53 No significant changes Electronically Signed On 01-26-2025 21:01:31 CDT by JONATHAN FALLON [email or web address] [id number]
[2025-01-23 21:26] LABS: Troponin 5 6HR 86.97 ng/L (0-15)
[2025-01-23 21:27] LABS: Troponin 5 6HR Delta -5.03 ng/L (0-12)
[2025-01-23 21:28] LABS: Hepatitis B Surface AB 8.7 (11.5-1000); Hepatitis B Surface Antigen Non-Reactive (Nonreactive)
[2025-01-24] VITALS (9 sets, daily range): BP systolic 126–154; BP diastolic 61–77; PULSE 57–81; RESP 17–21; TEMP 36–36.9; O2SAT 95–98
[2025-01-24 05:15] LABS: Basophils % 0.3 %; Hematocrit 26.2 % (37-53); Lymphocytes # 0.6 10^3/uL (0.8-4.8); Lymphocytes % 21.7 %; Mean Corpuscular HGB Conc 31.3 g/dL (30-55); Mean Corpuscular Hemoglobin 30.5 pg (27-33); Mean Corpuscular Volume 97.4 fl (82-101); Mean Platelet Volume 10.2 fL (7.4-10.4); Monocytes # 0.3 10^3/uL (0.2-0.9); Monocytes % 10.5 %; Neutrophils # 1.88 10^3/uL (1.8-7.7); Neutrophils % 65.8 %; Nucleated Red Blood Cells % 0 %; Platelet Count 156 10^3/cmm (157-399); Red Blood Count 2.69 10^6/uL (3.85-5.65); Red Cell Distribution Width 17.3 % (12.1-15.1); White Blood Count 2.86 10^3/uL (3.29-11.43)
[2025-01-24 05:47] LABS: Alanine Aminotransferase 13 U/L (0-41); Albumin Level 2.9 g/dL (3.5-5.2); Alkaline Phosphatase 68 U/L (40-130); Anion Gap 14.5 (5-19); Aspartate Amino Transferase 27 U/L (0-40); Blood Urea Nitrogen 20 mg/dL (6-20); Calcium 8.7 mg/dL (8.5-10.5); Carbon Dioxide 23 mmol/L (22-29); Chloride 105 mmol/L (98-107); Creatinine Clr Calc Pharmacy 26.3161; Globulin 2.7 g/dL (1.3-4.6); Glomerular Filtration Rate 27.5 mL/min (90-130); Glucose 57 mg/dL (65-115); Magnesium 1.7 mg/dL (1.7-2.3); Osmolality Calculated 286 mOsm/kg (285-295); Phosphorus 3.2 mg/dL (2.5-4.5); Potassium 4.5 mmol/L (3.5-5.1); Sodium 138 mmol/L (136-145); Thyroid Stimulating Hormone 1.68 uIU/mL (0.27-4.20); Total Bilirubin 0.3 mg/dL (0.15-1.2); Total Protein 5.6 g/dL (6.6-8.7)
[2025-01-24 05:49] LABS: Estmated Average Glucose 88; Hemoglobin A1C 4.7 % (4.0-6.0)
[2025-01-24 06:24] LABS: Glucose Point of Care 68 mg/dL (70-110)
[2025-01-24 06:54] LABS: Glucose Point of Care 64 mg/dL (70-110)
[2025-01-24 08:21] LABS: Glucose Point of Care 118 mg/dL (70-110)
[2025-01-24] MEDS: pantoprazole 40 mg SDV IVP ×2 (09:51→20:47)
[2025-01-24] MEDS: gabapentin 300 mg Capsule PO (09:51)
[2025-01-24] MEDS: sucralfate 1 gm Tablet PO ×2 (09:51→20:48)
[2025-01-24] MEDS: benztropine 1 mg Tablet PO ×2 (09:51→20:48)
[2025-01-24] MEDS: fenofibrate 145 mg Tablet PO (09:51)
[2025-01-24] MEDS: carBAMazepine 200 mg Tablet PO ×3 (09:51→20:48)
[2025-01-24] MEDS: aspirin 325 mg EC Tablet PO (09:51)
[2025-01-24] MEDS: heparin, porcine 1,000 unit/mL INJ 10 mL 10000 UNIT HE ×2 (10:17)
[2025-01-24] MEDS: heparin, porcine 1,000 unit/mL INJ 10 mL 10000 UNIT INTRACATH (10:18)
--- NOTE | 2025-01-24 10:38 | PM.CONSULT ---
Providers/Reason For Consult Consulting Physician/Specialty*: [facility]/Nephrology Reason for Consult*: ESRD Attending Physician: Enrique Valdes MD Primary Care Provider: Ahsan Gilliam MD History of Present Illness History of Present Illness Tyrese Leach is a 54 year old male Patient is a 54-year-old male with past medical history of end-stage renal disease on dialysis per Sunday schedule, history of intellectual disability, patient nonverbal and is a resident of [facility]. He was sent to the emergency department due to hypotension. Patient was noted to be hypotensive in the low 100s in the ER, met criteria for sepsis and UA was consistent with UTI. Patient was admitted to the hospital for further management. Lab data reviewed. . Review of Systems Narrative: Cannot obtain full review of system assessment Medications/Allergies Home Medications ?Medication ?Instructions ?Recorded ?Confirmed ?Last Taken ?Type amlodipine 10 mg tablet 10 mg PO DAILY@03/30/23 01/23/25 01/23/25 History benztropine 1 mg tablet 1 mg PO BID@,03/30/23 01/23/25 01/23/25 History carbamazepine 200 mg tablet 200 mg PO TID@,,03/30/23 01/23/25 01/23/25 History carvedilol 25 mg tablet 25 mg PO BID@,03/30/23 01/23/25 01/23/25 History multivitamin with folic acid 400 1 tab PO DAILY@03/30/23 01/23/25 01/23/25 History mcg tablet (Daily-Sean (with folic acid)) gabapentin 300 mg capsule 300 mg PO DAILY@10/24/23 01/23/25 01/23/25 History aripiprazole 15 mg tablet 15 mg PO QPM 12/07/23 01/23/25 01/22/25 History lurasidone 120 mg tablet (Latuda) 120 mg PO QPM 12/07/23 01/23/25 01/22/25 History naloxone 4 mg/actuation nasal 1 spray intranasal PRN PRN Opioid 01/30/24 01/23/25 02/14/24 History spray (Narcan) Reversal aspirin 325 mg tablet,delayed 325 mg PO DAILY 02/15/24 01/23/25 01/23/25 History release fenofibrate 160 mg tablet 160 mg PO DAILY 02/15/24 01/23/25 01/23/25 History acetaminophen 325 mg tablet 650 mg PO QID PRN Pain 09/04/24 01/23/25 Unknown History (Tylenol) clonazepam 0.5 mg tablet See Rx Instructions .Route .COMPLEX 09/04/24 01/23/25 01/23/25 History famotidine 20 mg tablet 20 mg PO BID 09/04/24 01/23/25 01/23/25 History hydrocodone 5 mg-acetaminophen 325 1 tab PO DAILY PRN Pain 09/04/24 01/23/25 01/23/25 History mg tablet lisinopril 20 mg tablet 20 mg PO BEDTIME 09/04/24 01/23/25 01/22/25 History loperamide 2 mg tablet See Rx Instructions .Route 09/04/24 01/23/25 12/17/24 History .COMPLEX PRN Diarrhea insulin aspart U-100 100 unit/mL See Rx Instructions .Route .COMPLEX 12/07/24 01/23/25 12/17/24 History (3 mL) subcutaneous pen (Novolog FlexPen U-100 Insulin aspart) isosorbide mononitrate 30 mg 60 mg PO DAILY 12/07/24 01/23/25 01/23/25 History tablet,extended release 24 hr trazodone 100 mg tablet 200 mg PO QPM 12/07/24 01/23/25 01/22/25 History atorvastatin 10 mg tablet 10 mg PO QPM 01/23/25 01/23/25 01/22/25 History hydralazine 50 mg tablet 75 mg PO QID 01/23/25 01/23/25 01/23/25 History Allergies Allergy/AdvReac Type Severity Reaction Status Date / Time No Known Allergies Allergy Verified 12/14/24 20:19 Current Medications Generic Name Dose Route Start Last Admin Trade Name Freq PRN Reason Stop Dose Admin Aripiprazole 15 mg 01/23/25 20:00 01/23/25 20:51 Aripiprazole 10 Mg Tablet PO 15 mg QPM CARLOS Administration Aspirin 325 mg 01/24/25 09:00 01/24/25 09:51 Aspirin 325 Mg Ec Tablet PO 325 mg DAILY CARLOS Administration Atorvastatin Calcium 10 mg 01/23/25 21:00 01/23/25 20:51 Atorvastatin 10 Mg Tablet PO 10 mg BEDTIME CARLOS Administration Benztropine Mesylate 1 mg 01/23/25 21:00 01/24/25 09:51 Benztropine 1 Mg Tablet PO 1 mg BID@ CARLOS Administration Carbamazepine 200 mg 01/23/25 21:00 01/24/25 09:51 Carbamazepine 200 Mg Tablet PO 200 mg TID@,, CARLOS Administration Clonazepam 0.5 mg 01/23/25 19:40 01/24/25 09:17 Clonazepam 0.5 Mg Tablet PO Not Given [id number] CARLOS Enoxaparin Sodium 30 mg 01/23/25 21:00 01/23/25 20:50 Enoxaparin 30 Mg/0.3 Ml Syringe SUBCUT 30 mg Q24H CARLOS Administration Fenofibrate 145 mg 01/24/25 09:00 01/24/25 09:51 Fenofibrate 145 Mg Tablet PO 145 mg DAILY CARLOS Administration Gabapentin 300 mg 01/24/25 09:00 01/24/25 09:51 Gabapentin 300 Mg Capsule PO 300 mg DAILY@09 CARLOS Administration Insulin Human Lispro 0 unit 01/23/25 19:40 01/24/25 08:07 Insulin Lispro 100 Unit/1 Ml SUBCUT Not Given TIDWM [facility] Protocol Lurasidone HCl 40 mg 01/23/25 20:00 01/23/25 20:51 Lurasidone 20 Mg Tablet PO 40 mg QPM CARLOS Administration Pantoprazole Sodium 40 mg 01/24/25 08:45 01/24/25 09:51 Pantoprazole 40 Mg Sdv IVP 40 mg Q12H CARLOS Administration Sucralfate 1 gm 01/24/25 08:45 01/24/25 09:51 Sucralfate 1 Gm Tablet PO 1 gm Q12H CARLOS Administration Trazodone HCl 200 mg 01/23/25 21:00 01/23/25 20:51 Trazodone 100 Mg Tablet PO 200 mg BEDTIME CARLOS Administration PFSH Acute PFSH: Medical History Malignant hypertension ESRD (end stage renal disease) Hyperlipemia, mixed Acute renal failure Acute kidney injury superimposed on CKD Acute hyponatremia Hyponatremia Anemia Hypervolemia Tobacco abuse Diabetes Social History Smoking and tobacco/nicotine status: current every day tobacco/nicotine user Vitals/I&O/Wt Last Vital Signs Temp 98.5 F 01/24/25 03:59 Pulse 57 L 01/24/25 07:40 Resp 19 H 01/24/25 07:40 BP 136/69 01/24/25 09:53 Pulse Ox 96 01/24/25 07:40 O2 Del Method Room Air 01/24/25 07:40 01/23/25 01/24/25 01/24/25 22:59 06:59 14:59 Intake Total 750 / 750 180 / 930 240 / 240 Balance 750 / 750 180 / 930 240 / 240 Weight last 48 hrs Weight 59.012 kg Weight 58.06 kg Weight 56.245 kg Physical Exam Narrative: Somnolent, no distress S1-S2 regular rate and rhythm per report Lungs clear per report Abdomen soft nontender per report Data 01/24/25 04:42 01/24/25 04:42 Micro: Microbiology 01/23/25 15:58 Urine Culture - Preliminary Urine,Clean Catch Gram Negative Rods 01/23/25 14:56 Blood Culture - Preliminary Blood SPECIMEN COLLECTED 01/23/25 14:53 Blood Culture - Preliminary Blood SPECIMEN COLLECTED A&P Assessment and plan (1) End stage renal disease on dialysis: Plan 1. End-stage renal disease: MWF schedule, missed HD yesterday, plan for HD today 2. Sepsis likely from UTI, cultures pending, 3. Anemia: Will order GEOFF with HD 4. History of hypertension 5. Encephalopathy, metabolic in the setting of sepsis, monitor Patient evaluated using audiovisual cart. Time spent 40 minutes PDMP PDMP Reviewed: Not Reviewed Consult Attestations Medical Necessity Statement: per callie Coding Level of Care Code Acute Code for Chg Fwd Diagnoses End stage renal disease on dialysis N18.6; Z99.2
[2025-01-24 11:13] LABS: Glucose Point of Care 85 mg/dL (70-110)
[2025-01-24] MEDS: acetaminophen 325 mg Tablet 650 MG PO (11:39)
[2025-01-24 11:54] LABS: Basophils % 0.3 %; Eosinophils % 0.3 %; Lymphocytes # 0.6 10^3/uL (0.8-4.8); Lymphocytes % 17.6 %; Mean Corpuscular HGB Conc 31.8 g/dL (30-55); Mean Corpuscular Hemoglobin 30.5 pg (27-33); Mean Corpuscular Volume 95.9 fl (82-101); Mean Platelet Volume 9.5 fL (7.4-10.4); Monocytes # 0.3 10^3/uL (0.2-0.9); Neutrophils # 2.67 10^3/uL (1.8-7.7); Neutrophils % 74.5 %; Nucleated Red Blood Cells % 0 %; Platelet Count 167 10^3/cmm (157-399); Red Blood Count 2.92 10^6/uL (3.85-5.65); Red Cell Distribution Width 17.2 % (12.1-15.1); White Blood Count 3.58 10^3/uL (3.29-11.43)
[2025-01-24] MEDS: albumin 12.5 GM/50 ML VIAL IV (12:08)
--- NOTE | 2025-01-24 14:15 | PC.NURSE ---
This nurse gave report to ZHANE Falcon
--- NOTE | 2025-01-24 14:34 | P.PN_ITS ---
Subjective 2 Subjective: Patient was seen this morning, no family members/care worker at bedside, he is alert, he does respond to his name, he opens his eyes, he is nonverbal, does not follow commands, normotensive overnight, afebrile, on room air Vitals/I&O/Wt Last Vital Signs Temp 97.0 F L 01/24/25 13:14 Pulse 66 01/24/25 13:14 Resp 18 01/24/25 13:14 BP 135/66 01/24/25 13:14 Pulse Ox 96 01/24/25 11:28 O2 Del Method Room Air 01/24/25 11:28 01/23/25 01/24/25 01/24/25 22:59 06:59 14:59 Intake Total 750 / 750 180 / 930 290 / 290 Balance 750 / 750 180 / 930 290 / 290 Weight last 48 hrs Weight 59.012 kg Weight 58.06 kg Weight 56.245 kg Physical Exam 2 Const: COMMON NORMALS: no acute distress ORIENTATION/CONSCIOUSNESS: Yes awake and Yes oriented to person; not oriented to place and not oriented to time Resp: COMMON NORMALS: normal respiratory effort, No retractions, No use of accessory muscles and clear to auscultation bilaterally AUSCULTATION: clear to auscultation bilaterally Cardio: COMMON NORMALS: regular rate, regular rhythm, S1 normal heart sound present and S2 normal heart sound present RATE: regular rate RHYTHM: r egular rhythm HEART SOUNDS: S1 normal heart sound present and S2 normal heart sound present GI: COMMON NORMALS: Normal to inspection, nondistended, normoactive bowel sounds present and non-tender Extremity: COMMON NORMALS: no pedal edema Neuro: SENSORIUM/ORIENTATION: Yes oriented to person, No oriented to place and No oriented to time Psych: COMMON NORMALS: mental status grossly normal Data 01/24/25 11:46 01/24/25 04:42 Micro: Microbiology 01/23/25 15:58 Urine Culture - Preliminary Urine,Clean Catch Gram Negative Rods 01/23/25 14:56 Blood Culture - Preliminary Blood SPECIMEN COLLECTED 01/23/25 14:53 Blood Culture - Preliminary Blood SPECIMEN COLLECTED A&P Assessment and plan (1) Sepsis: (2) End stage renal disease on dialysis: (3) Complicated UTI (urinary tract infection): Plan Acute encephalopathy, metabolic - With evidence of sepsis, given evidence of hypotension, altered mental status, source of infection UTI - Secondary to complicated UTI - History of ESBL E. coli UTI, history of MRSA - CT abdomen CT/CT abdomen pelvis wo con [id number] IMPRESSION: 1. Urinary bladder wall thickening compatible with cystitis. 2. Findings of fluid overload/third-spacing with small bilateral pleural effusions, pulmonary interstitial edema, diffuse body wall and mesenteric graying/edema. 3. Fluid within the distal esophagus may be on the basis of gastroesophageal reflux or esophageal dysmotility. 4. Additional chronic and incidental findings as above. Plan - Urine culture - Blood culture - Monitor mentation closely - Vancomycin - Meropenem - He is on a dysphagia diet at the intermediate, moderately thickened, placed on dysphagia level 4 diet, moderately thickened - Full code - Lovenox for DVT prophylaxis History of fluid overload, respiratory failure, will avoid fluid therapy due to risk of fluid overload Type 2 diabetes mellitus, low-dose sign scale End-stage renal disease on dialysis, consult nephrology for dialysis, Continue home Tegretol, check Tegretol level Intellectual disability, nonverbal Hypertension hold blood pressure medications Plan for today continue IV antibiotics, continue dialysis PDMP PDMP Reviewed: Not Reviewed Attestations 2 Medical Necessity Statement*: Patient requires hospitalization for acute encephalopathy secondary UTI, Diagnoses Sepsis A41.9 End stage renal disease on dialysis N18.6; Z99.2 Complicated UTI (urinary tract infection) N39.0
[2025-01-24 16:37] LABS: Glucose Point of Care 125 mg/dL (70-110)
[2025-01-24] MEDS: lurasidone 20 mg Tablet 40 MG PO (17:37)
[2025-01-24] MEDS: ARIPiprazole 10 mg Tablet 15 MG PO (17:37)
[2025-01-24] MEDS: lurasidone 80 mg Tablet PO (17:37)
[2025-01-24 19:12] LABS: Vancomycin Trough 13.1 ug/mL (10-15)
[2025-01-24 20:10] LABS: Glucose Point of Care 112 mg/dL (70-110)
[2025-01-24] MEDS: enoxaparin 30 mg/0.3 mL Syringe SUBCUT (20:47)
[2025-01-24] MEDS: ATORVASTATIN 10 MG TABLET PO (20:48)
[2025-01-24] MEDS: VANCOMYCIN ADD-Vantage 750 MG in 0.9% NaCl ADD-Vantage 250 ML 250 MG IV (20:48)
[2025-01-24] MEDS: trazodone 100 mg Tablet 200 MG PO (20:48)
[2025-01-25 00:05] VITALS: BP 176/80; PULSE 71; RESP 17; TEMP 36.1; O2SAT 93
[2025-01-25] MEDS: amlodipine 5 mg Tablet 10 MG PO (00:13)
[2025-01-25 03:22] VITALS: BP 177/86; PULSE 72; RESP 23; TEMP 36.9; O2SAT 98
[2025-01-25 05:04] LABS: Basophils % 0.6 %; Eosinophils % 0.6 %; Hematocrit 27.4 % (37-53); Lymphocytes # 0.9 10^3/uL (0.8-4.8); Mean Corpuscular HGB Conc 31.4 g/dL (30-55); Mean Corpuscular Hemoglobin 30.6 pg (27-33); Mean Corpuscular Volume 97.5 fl (82-101); Mean Platelet Volume 10.8 fL (7.4-10.4); Monocytes # 0.3 10^3/uL (0.2-0.9); Monocytes % 9.9 %; Neutrophils # 2.12 10^3/uL (1.8-7.7); Neutrophils % 61.6 %; Nucleated Red Blood Cells % 0 %; Platelet Count 151 10^3/cmm (157-399); Red Blood Count 2.81 10^6/uL (3.85-5.65); Red Cell Distribution Width 17.3 % (12.1-15.1); White Blood Count 3.44 10^3/uL (3.29-11.43)
[2025-01-25 05:19] LABS: Alanine Aminotransferase 14 U/L (0-41); Albumin Level 3.3 g/dL (3.5-5.2); Alkaline Phosphatase 81 U/L (40-130); Blood Urea Nitrogen 13 mg/dL (6-20); Calcium 8.5 mg/dL (8.5-10.5); Carbon Dioxide 26 mmol/L (22-29); Chloride 103 mmol/L (98-107); Creatinine Clr Calc Pharmacy 40.5863; Globulin 2.3 g/dL (1.3-4.6); Glomerular Filtration Rate 44.8 mL/min (90-130); Glucose 60 mg/dL (65-115); Magnesium 1.8 mg/dL (1.7-2.3); Osmolality Calculated 282 mOsm/kg (285-295); Phosphorus 2.1 mg/dL (2.5-4.5); Sodium 137 mmol/L (136-145); Total Bilirubin 0.4 mg/dL (0.15-1.2); Total Protein 5.6 g/dL (6.6-8.7)
[2025-01-25 05:20] LABS: Anion Gap 12.6 (5-19); Aspartate Amino Transferase 33 U/L (0-40); Potassium 4.6 mmol/L (3.5-5.1)
[2025-01-25 05:56] LABS: Glucose Point of Care 60 mg/dL (70-110)
--- NOTE | 2025-01-25 06:33 | PC.NURSE ---
Patient's blood glucose at 0441 was 60 and was asymptomatic. This nurse gave 240ml orange juice at this time. Sugar rechecked 20 minutes later and was 77.
[2025-01-25 06:35] LABS: Glucose Point of Care 77 mg/dL (70-110)
--- NOTE | 2025-01-25 07:24 | P.PN_ITS ---
Subjective 2 Subjective: s/p HD yeterday Medications: Reviewed: Yes Vitals/I&O/Wt Last Vital Signs Temp 98.4 F 01/25/25 03:22 Pulse 72 01/25/25 03:22 Resp 23 H 01/25/25 03:22 BP 177/86 01/25/25 03:22 Pulse Ox 98 01/25/25 03:22 O2 Del Method Room Air 01/25/25 00:05 01/24/25 01/25/25 01/25/25 22:59 06:59 14:59 Intake Total 980 / 1450 300 / 1750 Output Total 1861 / 1861 Balance -881 / -411 300 / -111 Weight last 48 hrs Weight 59.874 kg Weight 60.7 kg Weight 59.012 kg Weight 58.06 kg Weight 56.245 kg Physical Exam 2 Narrative: , no distress S1-S2 regular rate and rhythm per report Lungs clear per report Abdomen soft nontender per report Data 01/25/25 04:41 01/25/25 04:41 Micro: Microbiology 01/23/25 15:58 Urine Culture - Final Urine,Clean Catch Escherichia coli esbl 01/23/25 14:56 Blood Culture - Preliminary Blood NEGATIVE TO DATE 01/23/25 14:53 Blood Culture - Preliminary Blood NEGATIVE TO DATE A&P Assessment and plan (1) End stage renal disease on dialysis: Plan 1. End-stage renal disease: MWF schedule, /p hD yesterday 2. Sepsis likely from UTI, cultures pending, 3. Anemia: Will order GEOFF with HD 4. History of hypertension 5. Encephalopathy, metabolic in the setting of sepsis, monitor Patient evaluated using audiovisual cart. Time spent 40 minutes PDMP PDMP Reviewed: Not Reviewed Attestations 2 Medical Necessity Statement*: per callie Coding Level of Care Code Acute Code for Chg Fwd Diagnoses End stage renal disease on dialysis N18.6; Z99.2
[2025-01-25 07:42] VITALS: BP 173/77; PULSE 73; RESP 17; O2SAT 99
[2025-01-25] MEDS: fenofibrate 145 mg Tablet PO (08:47)
[2025-01-25] MEDS: carBAMazepine 200 mg Tablet PO ×3 (08:47→21:16)
[2025-01-25] MEDS: aspirin 325 mg EC Tablet PO (08:48)
[2025-01-25] MEDS: pantoprazole 40 mg SDV IVP ×2 (08:48→21:05)
[2025-01-25] MEDS: sucralfate 1 gm Tablet PO ×2 (08:48→21:05)
[2025-01-25] MEDS: benztropine 1 mg Tablet PO ×2 (08:48→21:16)
[2025-01-25] MEDS: gabapentin 300 mg Capsule PO (08:48)
[2025-01-25 10:58] LABS: Glucose Point of Care 94 mg/dL (70-110)
[2025-01-25 11:23] VITALS: BP 174/84; PULSE 76; RESP 18; TEMP 36.5; O2SAT 97
[2025-01-25] MEDS: acetaminophen 325 mg Tablet 650 MG PO (12:04)
[2025-01-25] MEDS: nicotine 21 mg Patch 1 PATCH TRANSDERMA (12:04)
[2025-01-25] MEDS: erythromycin Op Oint 1 gm 1 APPLIC EYE-LEFT ×3 (12:04→21:05)
--- NOTE | 2025-01-25 16:36 | P.PN_ITS ---
Subjective 2 Subjective: Patient was seen this morning, he is much more alert and awake, he is able to smile for me, he shakes my hand, he is nonverbal Vitals/I&O/Wt Last Vital Signs Temp 97.7 F 01/25/25 11:23 Pulse 76 01/25/25 11:23 Resp 18 01/25/25 11:23 BP 174/84 01/25/25 11:23 Pulse Ox 97 01/25/25 11:23 O2 Del Method Room Air 01/25/25 11:23 01/25/25 01/25/25 01/25/25 06:59 14:59 22:59 Intake Total 300 / 1750 180 / 180 Balance 300 / -111 180 / 180 Weight last 48 hrs Weight 59.874 kg Weight 60.7 kg Weight 59.012 kg Weight 58.06 kg Physical Exam 2 Const: COMMON NORMALS: no acute distress Eye: OTHER: Left eye with evidence of conjunctivitis Resp: COMMON NORMALS: normal respiratory effort, No retractions, No use of accessory muscles and clear to auscultation bilaterally AUSCULTATION: clear to auscultation bilaterally Cardio: COMMON NORMALS: regular rate, regular rhythm, S1 normal heart sound present and S2 normal heart sound present RATE: regular rate RHYTHM: r egular rhythm HEART SOUNDS: S1 normal heart sound present and S2 normal heart sound present GI: COMMON NORMALS: Normal to inspection, nondistended, normoactive bowel sounds present and non-tender Extremity: COMMON NORMALS: no pedal edema Psych: COMMON NORMALS: mental status grossly normal Data 01/25/25 04:41 01/25/25 04:41 Micro: Microbiology 01/23/25 15:58 Urine Culture - Final Urine,Clean Catch Escherichia coli esbl 01/23/25 14:56 Blood Culture - Preliminary Blood NEGATIVE TO DATE 01/23/25 14:53 Blood Culture - Preliminary Blood NEGATIVE TO DATE A&P Assessment and plan (1) Sepsis: (2) End stage renal disease on dialysis: (3) Complicated UTI (urinary tract infection): Plan Acute encephalopathy, metabolic - With evidence of sepsis, given evidence of hypotension, altered mental status, source of infection UTI - Secondary to complicated UTI - History of ESBL E. coli UTI, history of MRSA - CT abdomen CT/CT abdomen pelvis wo con [id number] IMPRESSION: 1. Urinary bladder wall thickening compatible with cystitis. 2. Findings of fluid overload/third-spacing with small bilateral pleural effusions, pulmonary interstitial edema, diffuse body wall and mesenteric graying/edema. 3. Fluid within the distal esophagus may be on the basis of gastroesophageal reflux or esophageal dysmotility. 4. Additional chronic and incidental findings as above. Plan - Urine culture - Blood culture - Monitor mentation closely - Vancomycin - Meropenem - He is on a dysphagia diet at the snf, moderately thickened, placed on dysphagia level 4 diet, moderately thickened - Full code - Lovenox for DVT prophylaxis History of fluid overload, respiratory failure, will avoid fluid therapy due to risk of fluid overload Type 2 diabetes mellitus, low-dose sign scale End-stage renal disease on dialysis, consult nephrology for dialysis, Continue home Tegretol, check Tegretol level Intellectual disability, nonverbal Hypertension hold blood pressure medications Plan for today continue IV antibiotics, dialysis tomorrow, monitor mentation blood sugar was 60 this morning, on BMP, will monitor thereafter PDMP PDMP Reviewed: Not Reviewed Attestations 2 Medical Necessity Statement*: Patient requires hospitalization for sepsis secondary to UTI, encephalopathy Diagnoses Sepsis A41.9 End stage renal disease on dialysis N18.6; Z99.2 Complicated UTI (urinary tract infection) N39.0
[2025-01-25 16:46] VITALS: BP 118/66; PULSE 80; RESP 18; O2SAT 94
[2025-01-25 16:49] LABS: Glucose Point of Care 99 mg/dL (70-110)
[2025-01-25] MEDS: lurasidone 80 mg Tablet PO (17:20)
[2025-01-25] MEDS: ARIPiprazole 10 mg Tablet 15 MG PO (17:20)
[2025-01-25] MEDS: lurasidone 20 mg Tablet 40 MG PO (17:20)
[2025-01-25 20:00] VITALS: BP 178/86; PULSE 82; RESP 20; TEMP 36.3; O2SAT 93
[2025-01-25 20:42] LABS: Glucose Point of Care 133 mg/dL (70-110)
[2025-01-25] MEDS: trazodone 100 mg Tablet 200 MG PO (21:05)
[2025-01-25] MEDS: ATORVASTATIN 10 MG TABLET PO (21:06)
[2025-01-25] MEDS: enoxaparin 30 mg/0.3 mL Syringe SUBCUT (21:06)
[2025-01-25] MEDS: hyDRALAzine 20 mg/mL INJ 1 mL 10 MG IVP (23:55)
[2025-01-26] VITALS (64 sets, daily range): BP systolic 114–211; BP diastolic 72–106; PULSE 69–90; RESP 12–38; TEMP 35.1–36.4; O2SAT 87–98
[2025-01-26] MEDS: hyDRALAzine 20 mg/mL INJ 1 mL 10 MG IVP ×3 (04:10→23:08)
[2025-01-26 05:28] LABS: Basophils % 0.2 %; Eosinophils % 0.3 %; Hematocrit 35.7 % (37-53); Lymphocytes # 0.8 10^3/uL (0.8-4.8); Mean Corpuscular HGB Conc 30.8 g/dL (30-55); Mean Corpuscular Hemoglobin 29.8 pg (27-33); Mean Corpuscular Volume 96.7 fl (82-101); Mean Platelet Volume 9.8 fL (7.4-10.4); Monocytes # 0.5 10^3/uL (0.2-0.9); Monocytes % 5.1 %; Neutrophils # 7.74 10^3/uL (1.8-7.7); Neutrophils % 85.2 %; Nucleated Red Blood Cells % 0 %; Platelet Count 196 10^3/cmm (157-399); Red Blood Count 3.69 10^6/uL (3.85-5.65); Red Cell Distribution Width 17.2 % (12.1-15.1); White Blood Count 9.09 10^3/uL (3.29-11.43)
[2025-01-26 05:45] LABS: Alanine Aminotransferase 15 U/L (0-41); Albumin Level 3.4 g/dL (3.5-5.2); Alkaline Phosphatase 83 U/L (40-130); Aspartate Amino Transferase 33 U/L (0-40); Blood Urea Nitrogen 23 mg/dL (6-20); Calcium 9.4 mg/dL (8.5-10.5); Carbon Dioxide 22 mmol/L (22-29); Chloride 103 mmol/L (98-107); Creatinine Clr Calc Pharmacy 30.3125; Globulin 3.4 g/dL (1.3-4.6); Glomerular Filtration Rate 32.6 mL/min (90-130); Glucose 109 mg/dL (65-115); Magnesium 1.8 mg/dL (1.7-2.3); Osmolality Calculated 288 mOsm/kg (285-295); Phosphorus 2.5 mg/dL (2.5-4.5); Sodium 137 mmol/L (136-145); Total Bilirubin 0.5 mg/dL (0.15-1.2); Total Protein 6.8 g/dL (6.6-8.7)
[2025-01-26 06:30] LABS: Glucose Point of Care 108 mg/dL (70-110)
--- NOTE | 2025-01-26 08:04 | P.PN_ITS ---
Subjective 2 Subjective: no new c/o Medications: Reviewed: Yes Vitals/I&O/Wt Last Vital Signs Temp 97.6 F 01/26/25 04:00 Pulse 74 01/26/25 08:00 Resp 18 01/26/25 08:00 BP 180/85 01/26/25 08:00 Pulse Ox 89 L 01/26/25 08:00 O2 Del Method Nasal Cannula 01/26/25 08:00 01/25/25 01/26/25 01/26/25 22:59 06:59 14:59 Intake Total 360 / 540 Balance 360 / 540 Weight last 48 hrs Weight 57.878 kg Weight 59.874 kg Weight 60.7 kg Physical Exam 2 Narrative: , no distress S1-S2 regular rate and rhythm per report Lungs clear per report Abdomen soft nontender per report Data 01/26/25 05:11 01/26/25 05:11 Micro: Microbiology 01/23/25 15:58 Urine Culture - Final Urine,Clean Catch Escherichia coli esbl A&P Assessment and plan (1) End stage renal disease on dialysis: Plan 1. End-stage renal disease: MWF schedule, HD 2. Sepsis likely from UTI, cultures pending, 3. Anemia: Will order GEOFF with HD 4. History of hypertension 5. Encephalopathy, metabolic in the setting of sepsis, monitor Patient evaluated using audiovisual cart. Time spent 40 minutes PDMP PDMP Reviewed: Not Reviewed Attestations 2 Medical Necessity Statement*: per ninava Coding Level of Care Code Acute Code for Chg Fwd Diagnoses End stage renal disease on dialysis N18.6; Z99.2
[2025-01-26 08:43] LABS: Vancomycin Trough 18.2 ug/mL (10-15)
[2025-01-26] MEDS: pantoprazole 40 mg SDV IVP ×2 (09:07→21:37)
[2025-01-26] MEDS: nicotine 21 mg Patch 1 PATCH TRANSDERMA (09:07)
[2025-01-26] MEDS: erythromycin Op Oint 1 gm 1 APPLIC EYE-LEFT ×3 (09:16→17:48)
[2025-01-26] MEDS: ondansetron 2 mg/ML SDV 2 mL 4 MG IVP (09:32)
--- NOTE | 2025-01-26 09:41 | PC.CHAP ---
Pastoral Care Encounter/Spiritual Assessment Type of Contact [] Declined hand fur cleaner visit [] Patient/Family/Request visit [] Outpatient visit [] Follow-up visit [] Physician referral [] Code/Alert [x] Routine visit [] Staff referral [] Actively dying [] Patient sleeping [] Family support [] [] Out of room [] Palliative care [] [] Receiving care in room [] Pre-surgical visit [] Trauma [] Long length of stay [] ICU visit [] Other: Relational/Emotional Strength [] Patient feels connected with others/family/visitors/staff [] Distress [] Loneliness/isolation [] Abandonment Spirituality of Patient [] Person of Nuzhat [] Attends Yazidism of their Nuzhat [] Believes in Prayer [] Reads Bible or Islam materials [] There are Spiritual issues to be addressed Finish Molder Interventions [x] Prayer [] Active listening [] Non-anxious presence [] Spiritual/emotional support [] Crisis/trauma care [] Spiritual counseling [] Bereavement support [] Provided bereavement packet [] Provided Bible/devotional materials [] Provided toy/stuffed animal, coloring book to patient or family member [] Provided Communion [] Anointing/[place] [] Salvation [] Completed spiritual assessment [] Other: Impact on Illness or Injury [] Angry [] Fearful [] Anxious [] Often cries [] Exhaustion [] Unable to work [] Unable to attend zoroastrian [] Unable to walk/stand [] Unable to read [] Unable to drive [] Unable to eat/drink [] Unable to sleep [] Unable to be with family [] Patient intubated [] Other: Summary precaution Time spent with patient
--- NOTE | 2025-01-26 10:54 | XRR_ITS ---
PROCEDURE INFORMATION: Exam: XR Abdomen Exam date and time: 01/26/2025 2:19 PM Age: 54 years old Clinical indication: Nausea and vomiting; Prior surgery; Surgery date: 6+ months; Surgery type: Dialysis cath; Additional info: N/v TECHNIQUE: Imaging protocol: Radiologic exam of the abdomen. Views: Frontal supine view of the abdomen. 1 View. COMPARISON: CT abdomen pelvis con [id number] 01/23/2025 6:17 PM FINDINGS: Gastrointestinal tract: Significant stool is seen at the rectal vault. Remaining bowel-gas is nonspecific. Bones/joints: Post kyphoplasty changes at the L2 and L3 vertebral bodies. XR/XR KUB portable [id number] IMPRESSION: Significant stool is seen at the rectal vault. Clinical correlation to exclude fecal impaction is advised.
[2025-01-26] MEDS: metoclopramide 5 mg/mL SDV 2 mL IVP (11:14)
[2025-01-26 11:29] LABS: ABG PCO2 45.9 mmHg (35-45); ABG PH Result 7.41 (7.35-7.45); Arterial Blood Gas Hematocrit 37.6 % (42-52); Base Excess ABG 3.4 mmol/L (-2.0-2.0); Blood Gas Allen Test Pos; Blood Gas Operator Identificat MBB; Blood Gas Sample Site Radial, right; Blood Gas Sample Type Arterial; HCO3 ABG 28.8 mmol/L (22-26); Oxygen Device OXY MASK; PO2 ABG 60.7 mmHg (80.0-100.0)
[2025-01-26 11:32] LABS: Troponin(5th) Baseline 95 ng/L (0-15)
[2025-01-26 11:45] LABS: NT Pro B Type Natriuretic Pept 29869 pg/mL (0-125); Procalcitonin 0.25 ng/mL (0-0.5)
[2025-01-26 11:45] LABS: Glucose Point of Care 92 mg/dL (70-110)
[2025-01-26 12:05] LABS: C Reactive Protein 42.6 mg/L (0.0-4.9)
--- NOTE | 2025-01-26 13:03 | ECG_ITS ---
[employer] Test Date: 2025-01-26 Pat Name: Tyrese Leach Department: Room: 276 Gender: Male Client Support Consultant: : 1970 Requested By: Enrique Valdes Order Number: [id number] Reading MD: JONATHAN FALLON Measurements Intervals [place] Rate: 86 P: 50 MD: 178 QRS: -77 QRSD: 134 T: 7 QT: 415 QTc: 498 Interpretive Statements SINUS RHYTHM INTRAVENTRICULAR CONDUCTION DELAY [130+ ms QRS DURATION] POSSIBLE LATERAL MYOCARDIAL INFARCTION , PROBABLY OLD [30 ms Q WAVE IN I/aVL/V5/V6] Compared to ECG 01/23/2025 21:10:32 Myocardial infarct finding now present Left-axis deviation no longer present Electronically Signed On 01-26-2025 21:00:39 CDT by JONATHAN FALLON [email or web address] [id number]
--- NOTE | 2025-01-26 13:25 | XR_ITS ---
WS: [id number] PORTABLE CHEST x2 HISTORY: Post PICC insertion COMPARISON: 01/23/2025 Imaging during PICC line insertion. The final image demonstrates the PICC line at the cavoatrial junction in good position. Extensive bilateral pulmonary opacifications which are new since 01/23/2025. Diffuse opacifications probably edema or ARDS. No effusion. No pneumothorax. Cardiac size: Normal. Mediastinum/Aorta: Extensive bilateral opacifications obscuring the mediastinum. RIGHT jugular dialysis catheter. No osseous abnormality seen. XR/XR chest 1V portable [id number] IMPRESSION: 1. Satisfactory positioning RIGHT PICC line, termination at the cavoatrial nellie ction. 2. Extensive bilateral pulmonary opacifications., Likely pulmonary edema/ARDS. .
--- NOTE | 2025-01-26 13:39 | P.PN_ITS ---
Subjective 2 Subjective: - Patient was examined earlier this morn ing - He is on dialysis - Currently in mild respiratory distress , nasal flaring, intercostal retraction, suprasternal retractions, on 5 L, he has had a vomiting episode possible aspiration, with wheezing, dialysis nurse at bedside, -Nonverbal, but does not point to any ab dominal pain, - Possible aspiration? - ABG ordered, chest x-ray, KUB, n.p.o., CRP, Pro-Clive, he is on broad-spectrum antibiotics, meropenem - Patient was examined again he is now o n 10 L, in mild to moderate respiratory distress, nasal flaring, intercostal retractions, suprasternal retractions, currently he is -2 L on dialysis - BNP is 29,000, will continue dialysis - Will moved to ICU for respiratory fail ure, keep n.p.o., Vitals/I&O/Wt Last Vital Signs Temp 95.2 F L 01/26/25 11:46 Pulse 69 01/26/25 11:46 Resp 19 H 01/26/25 11:46 BP 191/87 01/26/25 11:46 Pulse Ox 90 01/26/25 11:46 O2 Del Method Nasal Cannula 01/26/25 11:46 O2 Flow Rate 10 01/26/25 11:13 01/25/25 01/26/25 01/26/25 22:59 06:59 14:59 Intake Total 360 / 540 Balance 360 / 540 Weight last 48 hrs Weight 57.878 kg Weight 59.874 kg Weight 60.7 kg Physical Exam 2 Const: COMMON NORMALS: no acute distress Eye: COMMON NORMALS: Equal, round and reactive pupils present PUPIL: Yes Equal, round and reactive pupils present Resp: AUSCULTATION: crackles and wheezes OTHER: Precautions reactions, suprasternal retractions, nasal flaring, tachypnea Cardio: COMMON NORMALS: regular rate, regular rhythm, S1 normal heart sound present and S2 normal heart sound present RATE: regular rate RHYTHM: r egular rhythm HEART SOUNDS: S1 normal heart sound present and S2 normal heart sound present GI: OTHER: Abdomen soft, distended, no guarding, no rebound, rigidity, good bowel sounds Extremity: COMMON NORMALS: no pedal edema Psych: COMMON NORMALS: mental status grossly normal Data 01/26/25 05:11 01/26/25 05:11 A&P Assessment and plan (1) Sepsis: (2) End stage renal disease on dialysis: (3) Complicated UTI (urinary tract infection): (4) Acute hypoxic respiratory failure: (5) Aspiration pneumonia: (6) Aspiration pneumonitis: Plan Acute hypoxic respiratory failure - Secondary to fluid overload, possible aspiration pneumonia, aspiration pneumonitis - On 10 L, mild to moderate respiratory distress -ABG, PaO2 60 - History of intubation recently for respiratory failure Plan -Moved to ICU - Keep n.p.o. - DuoNeb - Budesonide - Continue meropenem - Add vancomycin - Receiving dialysis for fluid overload - Chest x-ray, KUB - Monitor respiratory status closely Acute encephalopathy, metabolic - With evidence of sepsis, given evidence of hypotension, altered mental status, source of infection UTI - Secondary to complicated UTI, urine cultures are growing ESBL E. coli - History of ESBL E. coli UTI, history of MRSA - CT abdomen CT/CT abdomen pelvis wo con [id number] IMPRESSION: 1. Urinary bladder wall thickening compatible with cystitis. 2. Findings of fluid overload/third-spacing with small bilateral pleural effusions, pulmonary interstitial edema, diffuse body wall and mesenteric graying/edema. 3. Fluid within the distal esophagus may be on the basis of gastroesophageal reflux or esophageal dysmotility. 4. Additional chronic and incidental findings as above. Plan - Urine culture growing ESBL E. coli, continue meropenem - Blood culture so far negative - Monitor mentation closely - Vancomycin - Meropenem - Full code - Lovenox for DVT prophylaxis History of fluid overload, respiratory failure, dialysis as above Type 2 diabetes mellitus, low-dose sign scale End-stage renal disease on dialysis, consult nephrology for dialysis, Continue home Tegretol, check Tegretol level Intellectual disability, nonverbal Hypertension hold blood pressure medications Plan for today moved to ICU, room respiratory failure, on 10 L, PICC line order placed, broaden antibiotic coverage, dialysis, keep n.p.o., speech therapy eval, chest x-ray, KUB PDMP PDMP Reviewed: Not Reviewed Attestations 2 Medical Necessity Statement*: Patient requires hospitalization for acute hypoxic respiratory failure secondary to aspiration pneumonia, aspiration pneumonitis, fluid overload, ESBL E. coli UTI Diagnoses Sepsis A41.9 End stage renal disease on dialysis N18.6; Z99.2 Complicated UTI (urinary tract infection) N39.0 Acute hypoxic respiratory failure J96.01 Aspiration pneumonia J69.0 Aspiration pneumonitis J69.0
--- NOTE | 2025-01-26 14:47 | ECG_ITS ---
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1970 Requested By: Enrique Valdes Order Number: [id number] Reading MD: JONATHAN FALLON Measurements Intervals [place] Rate: 87 P: 1 AR: 199 QRS: 89 QRSD: 134 T: 44 QT: 413 QTc: 498 Interpretive Statements SINUS RHYTHM INDETERMINATE AXIS INTRAVENTRICULAR CONDUCTION DELAY [130+ ms QRS DURATION] POSSIBLE RIGHT VENTRICULAR HYPERTROPHY [SOME/ALL OF: PROMINENT R IN V1, LATE TRANSITION, RAD, ENRIKE, SSS] INFERIOR MYOCARDIAL INFARCTION , PROBABLY OLD [40+ ms Q WAVE AND/OR ST/T ABNORMALITY IN II/aVF] Compared to ECG 01/26/2025 13:03:14 Indeterminate axis now present Myocardial infarct finding still present Electronically Signed On 01-26-2025 20:57:53 CDT by JONATHAN FALLON [id number]
[2025-01-26] MEDS: ipratropium-albuterol 3 mL Neb INHALATION ×2 (15:00→20:14)
--- NOTE | 2025-01-26 15:14 | PICC.NOTE ---
Double lumen PICC placed to right brachial vein. Referred to vascular access nurse for PICC placement due to ESBL of urine and need for IV antibiotics. Urgent consent given for procedure per Dr. Valdes. Pt mentally incompetent and unable to understand risks and benefits. Unable to reach guardian by phone. Right arm assessed with right brachial vein measuring 4.2 mm, straight, and apparent best choice for placement. Using sterile technique and MST, right brachial vein accessed x 1 stick. Mid-arm circumference measured 10 cm from right AC 22 cm. Trimmed cath 32 cm with 0 cm external length noted. CXR shows tip in cavoatrial junction, in good position for use per radiologist. Line secured with stat-lock. Insertion site covered with Biopatch and TSM. Report given to bedside nurse, ZHANE Pierson.
[2025-01-26 15:19] LABS: Adenovirus Not Detected (NOT DETECT); Chlamydia Pneumoniae Not Detected (NOT DETECT); Coronavirus 229E,HKU1,NL63,OC4 Not Detected (NOT DETECT); Human Metapneumovirus Not Detected (NOT DETECT); Human Rhinovirus/Enterovirus Not Detected (NOT DETECT); Influenza A Not Detected (NOT DETECT); Influenza A H1 Not Detected (NOT DETECT); Influenza A H1-2009 Not Detected (NOT DETECT); Influenza A H3 Not Detected (NOT DETECT); Influenza B Not Detected (NOT DETECT); Mycoplasma Pneumoniae Not Detected (NOT DETECT); Parainfluenza Virus Type 1 Not Detected (NOT DETECT); Parainfluenza Virus Type 2 Not Detected (NOT DETECT); Parainfluenza Virus Type 3 Not Detected (NOT DETECT); Parainfluenza Virus Type 4 Not Detected (NOT DETECT); Respiratory Syncytial Virus A Not Detected (NOT DETECT); Respiratory Syncytial Virus B Not Detected (NOT DETECT); SARS-COV-2 Not Detected (NOT DETECT)
[2025-01-26 15:41] LABS: Troponin 5 2HR 106.8 ng/L (0-15); Troponin 5 2HR Delta 11.8 ABS# (0-10)
[2025-01-26 15:54] LABS: Glucose Point of Care 76 mg/dL (70-110)
--- NOTE | 2025-01-26 16:01 | PC.NURSE ---
Received patient from [facility] via bed. Transferred to ICU bed and placed on cardiac care nurse. Respirations even and unlabored with no distress at present time. Oxy mask with 8L NC in place. 1:1 sitter at bedside with patient.
--- NOTE | 2025-01-26 16:56 | ECG_ITS ---
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: : 1970 Requested By: Enrique Valdes Order Number: [id number] Reading MD: JONATHAN FALLON Measurements Intervals [place] Rate: 81 P: 53 NM: 215 QRS: -56 QRSD: 131 T: 3 QT: 408 QTc: 476 Interpretive Statements SINUS RHYTHM WITH FIRST DEGREE AV BLOCK INTRAVENTRICULAR CONDUCTION DELAY [130+ ms QRS DURATION] Compared to ECG 01/26/2025 14:47:24 First degree AV block now present Indeterminate axis no longer present Myocardial infarct finding no longer present Electronically Signed On 01-26-2025 21:00:26 CDT by JONATHAN FALLON [email or web address] [id number]
[2025-01-26] MEDS: ARIPiprazole 10 mg Tablet 15 MG PO (17:49)
[2025-01-26 17:59] LABS: Glucose Point of Care 76 mg/dL (70-110)
[2025-01-26 18:34] LABS: Troponin 5 6HR 115.2 ng/L (0-15); Troponin 5 6HR Delta 20.2 ng/L (0-12)
--- NOTE | 2025-01-26 18:48 | PC.HD ---
On arrival pt hypothermic and tachypneic with rales and ronchi throughout lung moraes and O2 sat 85% on 3.5L NC, up to 90% after O2 increased to 5L but then dropped to 85%. Dr Valdes and Dr Zamora ntfd. RT in and placed Oximask at 10L, sat gradually increased to 96%, resp rate remained at 28. Albumin 2 bags used to support BP so 3L fluid could be removed. Temp gradually increased to 36 and O2 decreased to 8L. Lungs clearer but diminished by treatment end. Pt returned to room and report given to Kenna PHELAN.
[2025-01-26] MEDS: lurasidone 20 mg Tablet 40 MG PO (19:05)
[2025-01-26] MEDS: budesonide 0.5 mg/2 mL Neb INHALATION (20:14)
[2025-01-26] MEDS: enoxaparin 30 mg/0.3 mL Syringe SUBCUT (21:37)
[2025-01-26] MEDS: sucralfate 1 gm Tablet PO (21:37)
[2025-01-26] MEDS: VANCOMYCIN ADD-Vantage 750 MG in 0.9% NaCl ADD-Vantage 250 ML 250 MG IV (21:38)
[2025-01-26] MEDS: trazodone 100 mg Tablet 200 MG PO (21:38)
[2025-01-26] MEDS: ATORVASTATIN 10 MG TABLET PO (21:40)
[2025-01-26] MEDS: carBAMazepine 200 mg Tablet PO (21:43)
[2025-01-26] MEDS: benztropine 1 mg Tablet PO (21:43)
[2025-01-27] VITALS (271 sets, daily range): BP systolic 90–216; BP diastolic 59–116; PULSE 57–90; RESP 0–36; TEMP 35.5–36.4; O2SAT 86–99; BMI 17.6
[2025-01-27] MEDS: erythromycin Op Oint 1 gm 1 APPLIC EYE-LEFT ×5 (00:27→22:45)
[2025-01-27] MEDS: ipratropium-albuterol 3 mL Neb INHALATION ×4 (00:38→20:46)
[2025-01-27] MEDS: hyDRALAzine 20 mg/mL INJ 1 mL 10 MG IVP ×2 (03:04→22:39)
[2025-01-27 03:51] LABS: Basophils % 0.3 %; Eosinophils % 0.1 %; Hematocrit 32.5 % (37-53); Mean Corpuscular HGB Conc 31.4 g/dL (30-55); Mean Corpuscular Hemoglobin 29.8 pg (27-33); Mean Platelet Volume 10.4 fL (7.4-10.4); Monocytes # 0.4 10^3/uL (0.2-0.9); Monocytes % 3.1 %; Neutrophils # 9.71 10^3/uL (1.8-7.7); Nucleated Red Blood Cells % 0 %; Platelet Count 179 10^3/cmm (157-399); Red Blood Count 3.42 10^6/uL (3.85-5.65); Red Cell Distribution Width 17.1 % (12.1-15.1); White Blood Count 11.16 10^3/uL (3.29-11.43)
[2025-01-27 04:20] LABS: Alanine Aminotransferase 12 U/L (0-41); Albumin Level 3.5 g/dL (3.5-5.2); Alkaline Phosphatase 77 U/L (40-130); Anion Gap 16.2 (5-19); Aspartate Amino Transferase 30 U/L (0-40); Blood Urea Nitrogen 20 mg/dL (6-20); Calcium 9.5 mg/dL (8.5-10.5); Carbon Dioxide 27 mmol/L (22-29); Chloride 100 mmol/L (98-107); Creatinine Clr Calc Pharmacy 29.5701; Globulin 3.2 g/dL (1.3-4.6); Glomerular Filtration Rate 39.9 mL/min (90-130); Glucose 92 mg/dL (65-115); Magnesium 1.9 mg/dL (1.7-2.3); Osmolality Calculated 290 mOsm/kg (285-295); Phosphorus 3.2 mg/dL (2.5-4.5); Potassium 4.2 mmol/L (3.5-5.1); Sodium 139 mmol/L (136-145); Total Bilirubin 0.8 mg/dL (0.15-1.2); Total Protein 6.7 g/dL (6.6-8.7)
[2025-01-27 04:33] LABS: C Reactive Protein 142.7 mg/L (0.0-4.9)
[2025-01-27 04:56] LABS: NT Pro B Type Natriuretic Pept 36325 pg/mL (0-125)
--- NOTE | 2025-01-27 07:00 | XRR_ITS ---
PROCEDURE INFORMATION: Exam: XR Chest Exam date and time: 01/27/2025 7:07 AM Age: 54 years old Clinical indication: Shortness of breath; Additional info: SOB TECHNIQUE: Imaging protocol: Radiologic exam of the chest. Views: 1 view. COMPARISON: CR XR chest 1V portable [id number] 01/26/2025 2:09 PM FINDINGS: Tubes, catheters and devices: Tips of the dual-lumen left internal jugular catheter projects over the right atrium. Tip of the right PICC line projects over the SVC. Lungs: Low lung volumes with bronchovascular crowding. Diffuse interstitial and vascular prominence. Diffuse heterogeneous opacities bilaterally. Lung aeration appears mildly worsened from the comparison. Pleural spaces: Unremarkable. No pleural effusion. No pneumothorax. Heart/Mediastinum: Apparent cardiomegaly, accentuated by low lung volumes. Mediastinal contours unremarkable. Bones/joints: Unremarkable. Other findings: Evaluation limited by rightward rotation. XR/XR chest 1V portable [id number] IMPRESSION: 1. Bilateral heterogeneous opacities may indicate infection versus pulmonary edema. Lung aeration appears unchanged to mildly worsened from the comparison. 2. Cardiomegaly. Possible CHF.
[2025-01-27 07:39] LABS: Glucose Point of Care 81 mg/dL (70-110)
[2025-01-27] MEDS: budesonide 0.5 mg/2 mL Neb INHALATION ×2 (07:51→20:46)
[2025-01-27] MEDS: meropenem 500 mg SDV IVP ×2 (08:32→21:02)
[2025-01-27] MEDS: carBAMazepine 200 mg Tablet PO ×2 (08:34→21:02)
[2025-01-27] MEDS: fenofibrate 145 mg Tablet PO (08:35)
[2025-01-27] MEDS: gabapentin 300 mg Capsule PO (08:35)
[2025-01-27] MEDS: pantoprazole 40 mg SDV IVP ×2 (08:36→21:02)
[2025-01-27] MEDS: benztropine 1 mg Tablet PO ×2 (08:38→21:02)
[2025-01-27] MEDS: sucralfate 1 gm Tablet PO ×2 (08:41→21:02)
[2025-01-27] MEDS: aspirin 325 mg EC Tablet PO (08:41)
[2025-01-27] MEDS: nicotine 21 mg Patch 1 PATCH TRANSDERMA (08:41)
--- NOTE | 2025-01-27 09:32 | P.PN_ITS ---
Subjective 2 Subjective: transferred to ICU for ?aspiration Medications: Reviewed: Yes Vitals/I&O/Wt Last Vital Signs Temp 96.7 F L 01/27/25 08:00 Pulse 78 01/27/25 08:00 Resp 17 01/27/25 07:55 BP 188/105 01/27/25 08:00 Pulse Ox 92 01/27/25 08:00 O2 Del Method Oxymask 01/27/25 07:51 O2 Flow Rate 7 01/27/25 07:51 01/26/25 01/27/25 01/27/25 22:59 06:59 14:59 Intake Total 600 / 600 0 / 600 250 / 250 Output Total 3500 / 3500 Balance -2900 / -2900 0 / -2900 250 / 250 Weight last 48 hrs Weight 52.6 kg Weight 52.6 kg Weight 57.878 kg Physical Exam 2 Narrative: , no distress S1-S2 regular rate and rhythm per report Lungs +crackles per report Abdomen soft nontender per report Data 01/27/25 03:40 01/27/25 03:40 A&P Assessment and plan (1) End stage renal disease on dialysis: Plan 1. End-stage renal disease: MWF schedule, HD tomorrow 2. Sepsis likely from UTI, cultures pending, 3. Anemia: Will order GEOFF with HD 4. History of hypertension 5. Encephalopathy, metabolic in the setting of sepsis, monitor 6. ? Aspiration , on 5 l o2 Patient evaluated using audiovisual cart. Time spent 40 minutes PDMP PDMP Reviewed: Not Reviewed Attestations 2 Medical Necessity Statement*: per callie Coding Level of Care Code Acute Code for Chg Fwd Diagnoses End stage renal disease on dialysis N18.6; Z99.2
[2025-01-27 12:39] LABS: Glucose Point of Care 109 mg/dL (70-110)
--- NOTE | 2025-01-27 14:01 | PC.SLP ---
FRONT DESK LEAD attempted to assess the patient earlier, however, the patient was not alert enough to participate at that time. FRONT DESK LEAD will attempt again at a later time.
[2025-01-27] MEDS: albumin 12.5 GM/50 ML VIAL IV (15:37)
--- NOTE | 2025-01-27 16:02 | USCV_ITS ---
Tyrese Leach Age: 54 Gender: M : 1970 Exam Date: 01/27/2025 20:06 Ordering Phys: Enrique Valdes MD Technologist: LIANA Exam Location: [facility] [place] Indication: end-stage renal failure on dialysis, EF and wall motion for NSTEMI BP: 119 / 71 HR: 77 Rhythm: Sinus Technical Quality: Adequate MEASUREMENTS (Male / Female) Normal Values 2D ECHO LV Diastolic Diameter PLAX 3.9 cm 4.2 - 5.9 / 3.9 - 5.3 cm IVS Diastolic Thickness 1.6 cm 0.6 - 1.0 / 0.6 - 0.9 cm IVS Systolic Thickness 2.2 cm LVPW Diastolic Thickness 1.4 cm 0.6 - 1.0 / 0.6 - 0.9 cm LVPW Systolic Thickness 2.0 cm LVOT Diameter 1.9 cm LV Ejection Fraction 2D Teich 67.0 % LV Ejection Fraction MOD 4C 53.8 % LV Ejection Fraction MOD 2C 67.1 % LV Ejection Fraction 2C AL 71.7 % LA Diameter 2.9 cm Aorta at Sinotubular Diameter 3.0 cm IVC Diameter 1.3 cm M-MODE LA Ao Ratio MM 0.8 AV Cusp Separation MM 2.0 cm DOPPLER AV Peak Velocity 103.0 cm/s LVOT Peak Velocity 84.0 cm/s AV Area Cont Eq vti 2.7 cm squared AV Area Cont Eq pk 2.2 cm squared MV Peak Velocity 120.0 cm/s MV Area PHT 8.7 cm squared Mitral E to A Ratio 1.5 TV Peak Velocity 372.5 cm/s TR Peak Velocity 380.0 cm/s TR Peak Gradient 57.8 mmHg TV Peak E Velocity 58.0 cm/s PV Peak Velocity 68.0 cm/s FINDINGS Left Ventricle Left ventricle is normal in size. LV systolic function is normal with EF of 55-60%. No regional wall motion abnormalities. Moderateto severe left ventricular hypertrophy Right Ventricle Normal in size and function Right Atrium Normal in size Left Atrium Normal in size Mitral Valve Structurally normal mitral valve. Mild mitral regurgitation. Aortic Valve Structurally normal aortic valve. No significant stenosis or regurgitation. Tricuspid Valve Mild tricuspid regurgitation. RVSP is 55-60mmHg. This is consistent with moderate pulmonary hypertension. Pulmonic Valve Not well visualized. Pericardium Normal Aorta Normal in size IVC Appears to be normal CONCLUSIONS LV systolic function is normal with EF of 55-60% Moderate to severe left ventricular hypertrophy Mild tricuspid regurgitation. moderate pulmonary hypertension. Izaiah Reyna MD (Electronically Signed) Final Date: 28 January 2025 21:41 S
--- NOTE | 2025-01-27 16:02 | P.PN_ITS ---
Subjective 2 Subjective: - Patient was seen this morning he is mu ch more alert and awake this morning, he can follow some commands, currently on 7 L - In mild respiratory distress nasophary nx no intercostal retractions suprasternal retractions, tachypnea - Vitals/I&O/Wt Last Vital Signs Temp 96.7 F L 01/27/25 08:00 Pulse 69 01/27/25 15:46 Resp 16 01/27/25 15:46 BP 147/76 01/27/25 12:35 Pulse Ox 96 01/27/25 15:46 O2 Del Method Oxymask 01/27/25 15:46 O2 Flow Rate 4 01/27/25 15:46 01/27/25 01/27/25 01/27/25 06:59 14:59 22:59 Intake Total 0 / 600 250 / 250 Balance 0 / -2900 250 / 250 Weight last 48 hrs Weight 52.6 kg Weight 52.6 kg Weight 57.878 kg Physical Exam 2 Const: COMMON NORMALS: no acute distress EXAM LIMITATIONS: altered mental status ORIENTATION/CONSCIOUSNESS: Yes awake, Yes oriented to person and Yes confused; not oriented to place and not oriented to time Neck/C-Spine: COMMON NORMALS: no JVD Resp: COMMON NORMALS: normal respiratory effort, No retractions and No use of accessory muscles AUSCULTATION: crackles and wheezes Cardio: COMMON NORMALS: no JVD, regular rate, regular rhythm, S1 normal heart sound present and S2 normal heart sound present RATE: regular rate RHYTHM: regular rhythm HEART SOUNDS: S1 normal heart sound present and S2 normal heart sound present GI: COMMON NORMALS: Normal to inspection, nondistended, normoactive bowel sounds present and non-tender Extremity: COMMON NORMALS: no pedal edema Neuro: SENSORIUM/ORIENTATION: Yes oriented to person, No oriented to place and No oriented to time Sepsis: Is patient septic: Yes Focused sepsis exam performed: Yes F ocused sepsis exam: DP PT PT pulses palpable, capillary fill greater than 2 seconds, no mottling lower extremity Data 01/27/25 03:40 01/27/25 03:40 A&P Assessment and plan (1) Sepsis: (2) End stage renal disease on dialysis: (3) Complicated UTI (urinary tract infection): (4) Acute hypoxic respiratory failure: (5) Aspiration pneumonia: (6) Aspiration pneumonitis: (7) CHF exacerbation: Plan Acute hypoxic respiratory failure - Secondary to fluid overload, possible aspiration pneumonia, aspiration pneumonitis -Secondary to fluid overload, systolic diastolic CHF exacerbation - On 7 L, mild to moderate respiratory stress -ABG, PaO2 60 - History of intubation recently for respiratory failure - Chest x-ray shows XR/XR chest 1V portable [id number] IMPRESSION: 1. Bilateral heterogeneous opacities may indicate infection versus pulmonary edema. Lung aeration appears unchanged to mildly worsened from the comparison. 2. Cardiomegaly. Possible CHF. Plan -Moved to ICU - Keep n.p.o., speech therapy eval - DuoNeb - Budesonide - Continue meropenem - vancomycin - Spoke to nephrology, plan on dialysis again today - Monitor respiratory status closely Sepsis, secondary to aspiration morning, aspiration pneumonitis Systolic, diastolic CHF exacerbation, with end-stage renal disease NSTEMI - Positive delta troponin - Difficult to assess chest pain given patient is nonverbal Plan - Continue aspirin, statin, - Cardiac echo - Heparin drip - Will continue to monitor closely Acute encephalopathy, metabolic secondary to ESBL E. coli UTI - With evidence of sepsis, given evidence of hypotension, altered mental status, source of infection UTI - Secondary to complicated UTI, urine cultures are growing ESBL E. coli - History of ESBL E. coli UTI, history of MRSA - CT abdomen CT/CT abdomen pelvis wo con [id number] IMPRESSION: 1. Urinary bladder wall thickening compatible with cystitis. 2. Findings of fluid overload/third-spacing with small bilateral pleural effusions, pulmonary interstitial edema, diffuse body wall and mesenteric graying/edema. 3. Fluid within the distal esophagus may be on the basis of gastroesophageal reflux or esophageal dysmotility. 4. Additional chronic and incidental findings as above. Plan - Urine culture growing ESBL E. coli, continue meropenem - Blood culture so far negative - Monitor mentation closely - Vancomycin - Meropenem - Full code - Lovenox for DVT prophylaxis History of fluid overload, respiratory failure, dialysis as above Type 2 diabetes mellitus, low-dose sign scale End-stage renal disease on dialysis, consult nephrology for dialysis, Continue home Tegretol, check Tegretol level Intellectual disability, nonverbal Hypertension hold blood pressure medications Plan for today monitor respiratory status, dialysis, speech therapy eval, IV antibiotics, heparin drip, ESBL E. coli UTI, spoke to nephrology, plan on dialysis today PDMP PDMP Reviewed: Not Reviewed Attestations 2 Medical Necessity Statement*: Patient requires hospitalization for acute hypoxic respiratory failure, aspiration pneumonia, aspiration pneumonitis, sepsis, CHF, NSTEMI Diagnoses Sepsis A41.9 End stage renal disease on dialysis N18.6; Z99.2 Complicated UTI (urinary tract infection) N39.0 Acute hypoxic respiratory failure J96.01 Aspiration pneumonia J69.0 Aspiration pneumonitis J69.0 CHF exacerbation I50.9
[2025-01-27] MEDS: heparin, porcine 1,000 unit/mL INJ 10 mL 10000 UNIT HE (16:15)
[2025-01-27] MEDS: heparin, porcine 1,000 unit/mL INJ 10 mL 10000 UNIT INTRACATH (16:15)
[2025-01-27] MEDS: heparin 5,000 unit/mL INJ 1 mL IVP (16:37)
[2025-01-27] MEDS: heparin drip 25,000 UNIT/500 ML PREMIX 15 UNIT IV (16:41)
[2025-01-27 16:44] LABS: Troponin T (5th) Once 274 ng/L (0-15)
[2025-01-27 16:48] LABS: Glucose Point of Care 103 mg/dL (70-110)
[2025-01-27] MEDS: ARIPiprazole 10 mg Tablet 15 MG PO (17:24)
[2025-01-27] MEDS: sennosides-docusate Tablet 1 TAB PO (17:25)
[2025-01-27] MEDS: lurasidone 80 mg Tablet PO (17:25)
[2025-01-27] MEDS: lurasidone 20 mg Tablet 40 MG PO (17:25)
[2025-01-27] MEDS: trazodone 100 mg Tablet 200 MG PO (21:02)
[2025-01-27] MEDS: ATORVASTATIN 10 MG TABLET PO (21:02)
[2025-01-27] MEDS: vancomycin 500 MG in sodium chloride 0.9% (plus) 100 ML 200 MG IV (21:04)
[2025-01-27 22:46] LABS: Glucose Point of Care 122 mg/dL (70-110)
[2025-01-28] VITALS (68 sets, daily range): BP systolic 106–207; BP diastolic 51–127; PULSE 54–77; RESP 9–26; TEMP 35.9–36.9; O2SAT 88–95
[2025-01-28 00:35] LABS: Partial Thromboplastin Time > 250.0 SECONDS (23.9-36.7)
[2025-01-28] MEDS: acetaminophen 325 mg Tablet 650 MG PO (03:30)
[2025-01-28] MEDS: hyDRALAzine 20 mg/mL INJ 1 mL 10 MG IVP (03:36)
[2025-01-28 05:40] LABS: Partial Thromboplastin Time 178.7 SECONDS (23.9-36.7)
[2025-01-28 05:54] LABS: Basophils % 0.4 %; Eosinophils % 0.7 %; Lymphocytes # 0.8 10^3/uL (0.8-4.8); Lymphocytes % 14.7 %; Mean Corpuscular HGB Conc 32.3 g/dL (30-55); Mean Corpuscular Hemoglobin 30.7 pg (27-33); Mean Corpuscular Volume 94.9 fl (82-101); Mean Platelet Volume 10.7 fL (7.4-10.4); Monocytes # 0.4 10^3/uL (0.2-0.9); Monocytes % 6.9 %; Neutrophils # 4.33 10^3/uL (1.8-7.7); Neutrophils % 76.9 %; Nucleated Red Blood Cells % 0 %; Platelet Count 158 10^3/cmm (157-399); Red Blood Count 3.16 10^6/uL (3.85-5.65); White Blood Count 5.63 10^3/uL (3.29-11.43)
[2025-01-28 06:11] LABS: Chloride 100 mmol/L (98-107); Sodium 140 mmol/L (136-145)
[2025-01-28 06:14] LABS: Partial Thromboplastin Time 68.8 SECONDS (23.9-36.7)
[2025-01-28 06:16] LABS: C Reactive Protein 177.6 mg/L (0.0-4.9)
--- NOTE | 2025-01-28 06:23 | PC.NURSE ---
PTT value greater than 250 physician notified. Orders given to temporally stop heparin drip, and recheck ptt after 2 hours.
--- NOTE | 2025-01-28 06:32 | PC.NURSE ---
Physician notified of repeat PTT verbal orders given to decrease heparin drip by 4 units/kg/hr
[2025-01-28 06:39] LABS: NT Pro B Type Natriuretic Pept 39095 pg/mL (0-125)
[2025-01-28 06:53] LABS: Alanine Aminotransferase 12 U/L (0-41); Alkaline Phosphatase 77 U/L (40-130); Aspartate Amino Transferase 31 U/L (0-40); Blood Urea Nitrogen 17 mg/dL (6-20); Calcium 9.4 mg/dL (8.5-10.5); Carbon Dioxide 27 mmol/L (22-29); Creatinine Clr Calc Pharmacy 31.4815; Globulin 2.4 g/dL (1.3-4.6); Glomerular Filtration Rate 47.6 mL/min (90-130); Glucose 107 mg/dL (65-115); Osmolality Calculated 292 mOsm/kg (285-295); Phosphorus 2.1 mg/dL (2.5-4.5); Total Bilirubin 0.8 mg/dL (0.15-1.2); Total Protein 6.4 g/dL (6.6-8.7)
[2025-01-28 06:54] LABS: Anion Gap 16.4 (5-19); Potassium 3.4 mmol/L (3.5-5.1)
[2025-01-28] MEDS: ipratropium-albuterol 3 mL Neb INHALATION ×2 (07:46→20:56)
[2025-01-28] MEDS: budesonide 0.5 mg/2 mL Neb INHALATION ×2 (07:46→20:55)
[2025-01-28 08:12] LABS: Glucose Point of Care 98 mg/dL (70-110)
--- NOTE | 2025-01-28 08:14 | FL_ITS ---
WS: [id number] Modified barium swallow, 01/28/2025 Clinical Data: Oropharyngeal dysphagia Comparison: None. Fluoroscopy time: 5min [id number] # of spot films: 1 Findings: The patient had great difficulty with premature spillage. There was delayed oral preparation with almost all material. Multiple swallows were required to move oral material into the hypopharynx. The hypopharynx showed significant residual of almost all material. With thin liquids there was penetration and even a minimal amount of aspiration. FL/FL barium swallow modifd [id number] Impression: 1. Marked delayed oral preparation with almost all food material. 2. Multiple swallows required to move oral material in the hypopharynx. 3. Significant hypopharyngeal residual with all material. 4. Penetration and minimal aspiration with thin liquids.
[2025-01-28] MEDS: pantoprazole 40 mg SDV IVP ×2 (08:37→22:04)
[2025-01-28] MEDS: nicotine 21 mg Patch 1 PATCH TRANSDERMA (08:40)
[2025-01-28] MEDS: fenofibrate 145 mg Tablet PO (08:42)
[2025-01-28] MEDS: sennosides-docusate Tablet 1 TAB PO ×2 (08:42→17:08)
[2025-01-28] MEDS: sucralfate 1 gm Tablet PO ×2 (08:42→22:04)
[2025-01-28] MEDS: aspirin 325 mg EC Tablet PO (08:42)
[2025-01-28] MEDS: gabapentin 300 mg Capsule PO (08:42)
[2025-01-28] MEDS: erythromycin Op Oint 1 gm 1 APPLIC EYE-LEFT ×4 (08:42→22:06)
[2025-01-28] MEDS: carBAMazepine 200 mg Tablet PO ×3 (08:43→22:05)
[2025-01-28] MEDS: benztropine 1 mg Tablet PO ×2 (08:43→22:35)
--- NOTE | 2025-01-28 10:11 | P.PN_ITS ---
Subjective 2 Subjective: on room air Medications: Reviewed: Yes Vitals/I&O/Wt Last Vital Signs Temp 96.6 F L 01/28/25 08:00 Pulse 70 01/28/25 09:00 Resp 17 01/28/25 09:00 BP 195/110 01/28/25 09:00 Pulse Ox 90 01/28/25 09:00 O2 Del Method Room Air 01/28/25 07:47 O2 Flow Rate 4 01/27/25 15:46 01/27/25 01/28/25 01/28/25 22:59 06:59 14:59 Intake Total 650 / 900 224.75 / 1124.75 100 / 100 Output Total 3500 / 3500 Balance -2850 / -2600 224.75 / -2375.25 100 / 100 Weight last 48 hrs Weight 48 kg Weight 48.7 kg Weight 52.6 kg Weight 52.6 kg Physical Exam 2 Narrative: , no distress S1-S2 regular rate and rhythm per report Lungs +crackles per report Abdomen soft nontender per report Data 01/28/25 03:05 01/28/25 03:05 A&P Assessment and plan (1) End stage renal disease on dialysis: Plan 1. End-stage renal disease: MWF schedule, s/p HD yesterday , will plan HD tomorrow and sunday 2. Sepsis likely from UTI, cultures pending, 3. Anemia: Will order GEOFF with HD 4. History of hypertension 5. Encephalopathy, metabolic in the setting of sepsis, monitor 6. ? Aspiration , improved , on room air Patient evaluated using audiovisual cart. Time spent 40 minutes PDMP PDMP Reviewed: Not Reviewed Attestations 2 Medical Necessity Statement*: per medicine Coding Level of Care Code Acute Code for Chg Fwd Diagnoses End stage renal disease on dialysis N18.6; Z99.2
[2025-01-28] MEDS: epoetin alfa-epbx 10,000 unit/ml SDV (ESRD) 10000 UNIT SUBCUT (10:33)
[2025-01-28 11:15] LABS: Glucose Point of Care 195 mg/dL (70-110)
[2025-01-28] MEDS: insulin lispro 100 unit/1 mL SUBCUT (12:13)
--- NOTE | 2025-01-28 12:45 | PC.NURSE ---
PTT 192.9, notified Dr. Valdes. Order given to hold heparin drip x 4 hours and then recheck PTT. 1300 -- Heparin paused, PTT ordered for 1600.
[2025-01-28 12:46] LABS: Partial Thromboplastin Time 192.9 SECONDS (23.9-36.7)
--- NOTE | 2025-01-28 14:12 | PC.NURSE ---
0135 -- To X-ray for modified barium study via bed. 0211 -- Returned to ICU room 11 via bed.
[2025-01-28 16:31] LABS: Partial Thromboplastin Time 55.8 SECONDS (23.9-36.7)
[2025-01-28 17:01] LABS: Glucose Point of Care 121 mg/dL (70-110)
[2025-01-28] MEDS: ARIPiprazole 10 mg Tablet 15 MG PO (17:08)
[2025-01-28] MEDS: lurasidone 80 mg Tablet PO (17:08)
[2025-01-28] MEDS: lurasidone 20 mg Tablet 40 MG PO (17:08)
--- NOTE | 2025-01-28 17:26 | P.PN_ITS ---
Subjective 2 Subjective: Patient was seen this morning he is much more alert awake he can follow some commands, he can see a few words, but is mostly nonverbal, he is on room air, he has no pain complaints, Vitals/I&O/Wt Last Vital Signs Temp 97.2 F L 01/28/25 16:00 Pulse 59 L 01/28/25 16:00 Resp 14 01/28/25 16:00 BP 106/51 01/28/25 16:00 Pulse Ox 94 01/28/25 16:00 O2 Del Method Room Air 01/28/25 16:00 O2 Flow Rate 4 01/27/25 15:46 01/28/25 01/28/25 01/28/25 06:59 14:59 22:59 Intake Total 224.75 / 1124.75 371.867 / 371.867 0 / 371.867 Balance 224.75 / -2375.25 371.867 / 371.867 0 / 371.867 Weight last 48 hrs Weight 48 kg Weight 48.7 kg Weight 52.6 kg Weight 52.6 kg Physical Exam 2 Const: COMMON NORMALS: no acute distress ORIENTATION/CONSCIOUSNESS: Yes awake and Yes oriented to person; not oriented to place and not oriented to time Resp: COMMON NORMALS: normal respiratory effort, No retractions, No use of accessory muscles and clear to auscultation bilaterally AUSCULTATION: clear to auscultation bilaterally Cardio: COMMON NORMALS: regular rate, regular rhythm, S1 normal heart sound present and S2 normal heart sound present RATE: regular rate RHYTHM: r egular rhythm HEART SOUNDS: S1 normal heart sound present and S2 normal heart sound present GI: COMMON NORMALS: Normal to inspection, nondistended, normoactive bowel sounds present and non-tender Extremity: COMMON NORMALS: no clubbing, cyanosis or edema and no pedal edema Neuro: SENSORIUM/ORIENTATION: Yes oriented to person, No oriented to place and No oriented to time Psych: COMMON NORMALS: mental status grossly normal Data 01/28/25 03:05 01/28/25 03:05 Micro: Microbiology 01/23/25 14:56 Blood Culture - Final Blood NO GROWTH AFTER 5 DAYS 01/23/25 14:53 Blood Culture - Final Blood NO GROWTH AFTER 5 DAYS A&P Assessment and plan (1) Sepsis: (2) End stage renal disease on dialysis: (3) Complicated UTI (urinary tract infection): (4) Acute hypoxic respiratory failure: (5) Aspiration pneumonia: (6) Aspiration pneumonitis: (7) CHF exacerbation: Plan Acute hypoxic respiratory failure - Secondary to fluid overload, possible aspiration pneumonia, aspiration pneumonitis -Secondary to fluid overload, systolic diastolic CHF exacerbation - On 7 L, mild to moderate respiratory stress -ABG, PaO2 60 - History of intubation recently for respiratory failure - Chest x-ray shows XR/XR chest 1V portable 12300 IMPRESSION: 1. Bilateral heterogeneous opacities may indicate infection versus pulmonary edema. Lung aeration appears unchanged to mildly worsened from the comparison. 2. Cardiomegaly. Possible CHF. Plan -Move csu - speech therapy eval - DuoNeb - Budesonide - Continue meropenem - vancomycin - Spoke to nephrology, plan on dialysis again today - Monitor respiratory status closely Sepsis, secondary to aspiration morning, aspiration pneumonitis Systolic, diastolic CHF exacerbation, with end-stage renal disease NSTEMI - Positive delta troponin - Difficult to assess chest pain given patient is nonverbal Plan - Continue aspirin, statin, - Cardiac echo - Heparin drip - Will continue to monitor closely Acute encephalopathy, metabolic secondary to ESBL E. coli UTI - With evidence of sepsis, given evidence of hypotension, altered mental status, source of infection UTI - Secondary to complicated UTI, urine cultures are growing ESBL E. coli - History of ESBL E. coli UTI, history of MRSA - CT abdomen CT/CT abdomen pelvis wo con [id number] IMPRESSION: 1. Urinary bladder wall thickening compatible with cystitis. 2. Findings of fluid overload/third-spacing with small bilateral pleural effusions, pulmonary interstitial edema, diffuse body wall and mesenteric graying/edema. 3. Fluid within the distal esophagus may be on the basis of gastroesophageal reflux or esophageal dysmotility. 4. Additional chronic and incidental findings as above. Plan - Urine culture growing ESBL E. coli, continue meropenem - Blood culture so far negative - Monitor mentation closely - Vancomycin - Meropenem - Full code - Lovenox for DVT prophylaxis History of fluid overload, respiratory failure, dialysis as above Type 2 diabetes mellitus, low-dose sign scale End-stage renal disease on dialysis, consult nephrology for dialysis, Continue home Tegretol, check Tegretol level Intellectual disability, nonverbal Hypertension hold blood pressure medications Plan for today monitor monitor respiratory status, continue IV antibiotics, modified barium swallow PDMP PDMP Reviewed: Not Reviewed Attestations 2 Medical Necessity Statement*: Patient requires hospitalization for acute hypoxic respiratory failure, ESBL E. coli UTI, CHF Diagnoses Sepsis A41.9 End stage renal disease on dialysis N18.6; Z99.2 Complicated UTI (urinary tract infection) N39.0 Acute hypoxic respiratory failure J96.01 Aspiration pneumonia J69.0 Aspiration pneumonitis J69.0 CHF exacerbation I50.9
--- NOTE | 2025-01-28 18:05 | PC.NURSE ---
Report given to ZHANE Carranza
--- NOTE | 2025-01-28 18:28 | PC.NURSE ---
Transferred to CSU rm 107 via bed, tolerated well.
[2025-01-28 20:44] LABS: Glucose Point of Care 119 mg/dL (70-110)
[2025-01-28] MEDS: ATORVASTATIN 10 MG TABLET PO (22:05)
[2025-01-28] MEDS: trazodone 100 mg Tablet 200 MG PO (22:06)
[2025-01-28 23:55] LABS: Partial Thromboplastin Time 115.7 SECONDS (23.9-36.7)
[2025-01-29] VITALS (9 sets, daily range): BP systolic 143–187; BP diastolic 77–94; PULSE 72–82; RESP 12–23; TEMP 36.4–36.7; O2SAT 95–98
[2025-01-29 06:12] LABS: Glucose Point of Care 109 mg/dL (70-110)
[2025-01-29 06:17] LABS: Basophils % 0.3 %; Eosinophils # 0.1 10^3/uL (0.0-0.8); Eosinophils % 1.9 %; Hematocrit 27.7 % (37-53); Lymphocytes # 0.8 10^3/uL (0.8-4.8); Lymphocytes % 23.9 %; Mean Corpuscular HGB Conc 31.8 g/dL (30-55); Mean Corpuscular Hemoglobin 30.2 pg (27-33); Mean Corpuscular Volume 95.2 fl (82-101); Mean Platelet Volume 10.8 fL (7.4-10.4); Monocytes # 0.4 10^3/uL (0.2-0.9); Monocytes % 11.2 %; Neutrophils # 2.01 10^3/uL (1.8-7.7); Neutrophils % 62.4 %; Nucleated Red Blood Cells % 0 %; Platelet Count 146 10^3/cmm (157-399); Red Blood Count 2.91 10^6/uL (3.85-5.65); Red Cell Distribution Width 17.2 % (12.1-15.1); White Blood Count 3.22 10^3/uL (3.29-11.43)
[2025-01-29 06:39] LABS: Partial Thromboplastin Time 128.8 SECONDS (23.9-36.7)
[2025-01-29 07:49] LABS: Vancomycin Random 25.2 ug/mL (20.0-40.0)
[2025-01-29] MEDS: budesonide 0.5 mg/2 mL Neb INHALATION (08:00)
[2025-01-29] MEDS: aspirin 325 mg EC Tablet PO (08:09)
[2025-01-29] MEDS: sennosides-docusate Tablet 1 TAB PO (08:09)
[2025-01-29] MEDS: pantoprazole 40 mg SDV IVP (08:09)
[2025-01-29] MEDS: sucralfate 1 gm Tablet PO (08:09)
[2025-01-29] MEDS: fenofibrate 145 mg Tablet PO (08:09)
[2025-01-29] MEDS: carBAMazepine 200 mg Tablet PO (08:09)
[2025-01-29] MEDS: nicotine 21 mg Patch 1 PATCH TRANSDERMA (08:09)
[2025-01-29] MEDS: gabapentin 300 mg Capsule PO (08:09)
[2025-01-29 08:21] LABS: Alanine Aminotransferase 13 U/L (0-41); Albumin Level 3.4 g/dL (3.5-5.2); Alkaline Phosphatase 83 U/L (40-130); Anion Gap 14.9 (5-19); Aspartate Amino Transferase 27 U/L (0-40); Blood Urea Nitrogen 34 mg/dL (6-20); C Reactive Protein 103.8 mg/L (0.0-4.9); Calcium 9.3 mg/dL (8.5-10.5); Carbon Dioxide 27 mmol/L (22-29); Chloride 103 mmol/L (98-107); Globulin 3.1 g/dL (1.3-4.6); Glomerular Filtration Rate 28.6 mL/min (90-130); Glucose 102 mg/dL (65-115); Magnesium 2.1 mg/dL (1.7-2.3); Osmolality Calculated 300 mOsm/kg (285-295); Phosphorus 1.7 mg/dL (2.5-4.5); Potassium 3.9 mmol/L (3.5-5.1); Sodium 141 mmol/L (136-145); Total Bilirubin 0.5 mg/dL (0.15-1.2); Total Protein 6.5 g/dL (6.6-8.7)
[2025-01-29 08:41] LABS: NT Pro B Type Natriuretic Pept 33354 pg/mL (0-125)
[2025-01-29] MEDS: benztropine 1 mg Tablet PO (09:20)
[2025-01-29] MEDS: erythromycin Op Oint 1 gm 1 APPLIC EYE-LEFT (09:20)
--- NOTE | 2025-01-29 09:20 | PC.NURSE ---
in dialysis today
--- NOTE | 2025-01-29 10:39 | P.DS_ITS ---
Discharge Providers Date of Admission: 01/23/25 18:24 Date of Discharge: January 29, 2025 Attending Provider at Admission: Enrique Valdes MD Attending Provider at Discharge: Enrique Valdes MD Primary Care Provider: Ahsan Gilliam MD Diagnoses at Discharge Discharge Diagnosis (1) Sepsis: Status: Resolved (2) End stage renal disease on dialysis: Status: Acute (3) Complicated UTI (urinary tract infection): Status: Resolved (4) Acute hypoxic respiratory failure: Status: Resolved (5) Aspiration pneumonia: Status: Resolved (6) Aspiration pneumonitis: Status: Resolved (7) CHF exacerbation: Status: Resolved Reason for Visit Reason for Visit: Hypotension Hospital Course Hospital Course Jg Leach is a 54 year old male with a past medical history of end-stage renal disease on dialysis, currently resident of a [place] [facility], mild intellectual disability, nonverbal, chronically wheelchair-bound, who presents due to low blood pressures, altered mental status. Currently patient is alert to person, not to place, to time, does not follow commands, patient's caregiver at the [place] [facility] is at bedside. He tends to hold onto urine, urinates maybe twice a day, at dialysis today noted that he had a low blood pressure, he was given fluids and sent to for evaluation. Currently patient is alert awake, blood pressure 107/58, pulse 71, he is 98% on room air temperature 97.8, UA with findings of UTI, he did not get dialysis today does not look fluid overloaded, Patient was admitted to for acute encephalopathy, secon anamaria to ESBL E. coli UTI, requiring IV antibiotics, completed 7 days of IV antibiotics as inpatient Patient's hospitalization was complicated with acute hypoxic respiratory failure secondary to fluid overload, aspiration pneumonia, aspiration pneumonitis -Due to mild to moderate respiratory distress was moved to ICU requiring ICU level of care - Required inpatient dialysis, overall clinically improved with dialysis for fluid overload, systolic and diastolic chf - Due to concerns for aspiration, speech therapy was consulted managed with broad-spectrum antibiotic therapy, discharged on dysphagia level 4 diet, extremely thickened, aspiration precautions - On discharge I spoke to patient's aunt - Discussed morbidity and mortality associated with recurrent aspiration, aspiration pneumonia, aspiration pneumonitis, we discussed all options available including but not limited to PEG tube placement versus medical management - For now patient's aunt is agreeable to trial of medical therapy, dysphagia level 4 diet, extremely thickened meals, monitored feeds, aspiration precautions, after discussing the risk and benefits of all options, she voiced understanding, all questions answered, shared decision making, agreed to proceed Jg -Currently lives in a [place] [facility] - He is nonverbal - I do not get any significant indication that he has a good understanding of the complexity of his underlying medical conditions - After multiple discussions with him, I feel that he does not have good capacity to make decisions - Unfortunately Hipolito's healthcare power of assistant county attorney was his sister who sadly - So currently Hipolito does not have healthcare power of assistant county attorney, and he makes decisions for himself according to [place] [facility] - However I do not feel he has good capacity to make decision, nor does he have good understanding of the complexity of his underlying medical conditions - I reached out to his aunt, who is jg only living and closest relative, who says that she wants to be involved in his care, and wants to help with the medical decision making - Discussed with her to reach out to [place] [facility] to start guardianship paperwork, to be Hipolito's healthcare power of assistant county attorney - As I am worried with Hipolito's current condition, he has increased risk of recurrent hospitalizations, complications, and complex decisions about his health care needs that cannot be made by him at this time Physical Exam Const: COMMON NORMALS: no acute distress ORIENTATION/CONSCIOUSNESS: Yes awake and Yes oriented to person; not oriented to place and not oriented to time Resp: COMMON NORMALS: normal respiratory effort, No retractions, No use of accessory muscles and clear to auscultation bilaterally AUSCULTATION: clear to auscultation bilaterally Cardio: COMMON NORMALS: regular rate, regular rhythm, S1 normal heart sound present and S2 normal heart sound present RATE: regular rate RHYTHM: regular rhythm HEART SOUNDS: S1 normal heart sound present and S2 normal heart sound present GI: COMMON NORMALS: Normal to inspection, nondistended, normoactive bowel sounds present and non-tender Extremity: COMMON NORMALS: no pedal edema Neuro: SENSORIUM/ORIENTATION: Yes oriented to person, No oriented to place and No oriented to time Discharge Data Studies Completed and Pending Completed Studies During Hospitalization Category Date Time Status CT abdomen pelvis wo con [id number] Stat Cat Scan 01/23/25 17:[address] head wo con* [id number] Stat Cat Scan 01/23/25 17:56 Completed CXRP [XR chest 1V portable [id number]] Routine Exams 01/26/25 13:25 Completed Modified barium swallow [FL barium swallow modifd [id number] Exams 01/28/25 08:14 Completed ] Routine XR KUB portable [id number] Routine Exams 01/26/25 10:54 Completed XR chest 1V portable [id number] Routine Exams 01/27/25 07:00 Completed XR chest 1V portable [id number] Stat Exams 01/23/25 14:35 Completed CV. echo limited [id number] Routine Ultrasound 01/27/25 16:02 Completed Pending at discharge Category Date Time Status Sputum Culture and Gram Stain Stat Lab 01/26/25 13:47 Uncollected Radiology Impressions Abdomen/Pelvis CT 01/23/25 17:56 IMPRESSION: 1. Urinary bladder wall thickening compatible with cystitis. 2. Findings of fluid overload/third-spacing with small bilateral pleural effusions, pulmonary interstitial edema, diffuse body wall and mesenteric graying/edema. 3. Fluid within the distal esophagus may be on the basis of gastroesophageal reflux or esophageal dysmotility. 4. Additional chronic and incidental findings as above. Head CT 01/23/25 17:56 IMPRESSION: No acute intracranial abnormality. Senescent changes. KUB X-Ray 01/26/25 10:54 IMPRESSION: Significant stool is seen at the rectal vault. Clinical correlation to exclude fecal impaction is advised. Chest X-Ray 01/27/25 07:00 IMPRESSION: 1. Bilateral heterogeneous opacities may indicate infection versus pulmonary edema. Lung aeration appears unchanged to mildly worsened from the comparison. 2. Cardiomegaly. Possible CHF. Modified Barium Swallow 01/28/25 08:14 Impression: 1. Marked delayed oral preparation with almost all food material. 2. Multiple swallows required to move oral material in the hypopharynx. 3. Significant hypopharyngeal residual with all material. 4. Penetration and minimal aspiration with thin liquids. Laboratory Results WBC 3.22 10^3/uL (3.29-11.43) L 01/29/25 06:07 RBC 2.91 10^6/uL (3.85-5.65) L 01/29/25 06:07 Hgb 8.80 g/dL (11.27-16.99) L 01/29/25 06:07 Hct 27.7 % (37-53) L 01/29/25 06:07 MCV 95.2 fl (82-101) 01/29/25 06:07 MCH 30.2 pg (27-33) 01/29/25 06:07 MCHC 31.8 g/dL (30-55) 01/29/25 06:07 RDW 17.2 % (12.1-15.1) H 01/29/25 06:07 Plt Count 146 10^3/cmm (157-399) L 01/29/25 06:07 MPV 10.8 fL (7.4-10.4) H 01/29/25 06:07 Neut % (Auto) 62.4 % 01/29/25 06:07 Lymph % (Auto) 23.9 % 01/29/25 06:07 Benton % (Auto) 11.2 % 01/29/25 06:07 Eos % (Auto) 1.9 % 01/29/25 06:07 Baso % (Auto) 0.3 % 01/29/25 06:07 Neut # (Auto) 2.01 10^3/uL (1.8-7.7) 01/29/25 06:07 Lymph # (Auto) 0.8 10^3/uL (0.8-4.8) 01/29/25 06:07 Benton # (Auto) 0.4 10^3/uL (0.2-0.9) 01/29/25 06:07 Eos # (Auto) 0.1 10^3/uL (0.0-0.8) 01/29/25 06:07 Baso # (Auto) 0.0 10^3/uL (0.0-0.1) 01/29/25 06:07 Nucleated RBC % (auto) 0 % 01/29/25 06:07 Nucleated RBCs # 0.0 /100WBC 01/29/25 06:07 APTT 128.8 SECONDS (23.9-36.7) H 01/29/25 06:07 Specimen Type Arterial 01/26/25 11:20 Sample Site Radial, right 01/26/25 11:20 ABG pH 7.41 (7.35-7.45) 01/26/25 11:20 ABG pCO2 45.9 mmHg (35-45) H 01/26/25 11:20 ABG pO2 60.7 mmHg (80.0-100.0) L 01/26/25 11:20 ABG HCO3 28.8 mmol/L (22-26) H 01/26/25 11:20 ABG Base Excess 3.4 mmol/L (-2.0-2.0) H 01/26/25 11:20 Jeff Test Pos 01/26/25 11:20 Hematocrit 37.6 % (42-52) L 01/26/25 11:20 O2 Delivery Device Oxy mask 01/26/25 11:20 O2 Liters/Min 10.0 % 01/26/25 11:20 Field Seismologist ID Mbb 01/26/25 11:20 Sodium 141 mmol/L (136-145) 01/29/25 07:26 Potassium 3.9 mmol/L (3.5-5.1) 01/29/25 07:26 Chloride 103 mmol/L (98-107) 01/29/25 07:26 Carbon Dioxide 27 mmol/L (22-29) 01/29/25 07:26 Anion Gap 14.9 (5-19) 01/29/25 07:26 BUN 34 mg/dL (6-20) H 01/29/25 07:26 Creatinine 2.8 mg/dL (0.7-1.2) H 01/29/25 07:26 GFR Calculation 28.6 mL/min (90-130) L 01/29/25 07:26 Glucose 102 mg/dL (65-115) 01/29/25 07:26 POC Glucose 109 mg/dL (70-110) 01/29/25 06:02 Estimat Average Glucose 88 01/24/25 04:42 Hemoglobin A1c 4.7 % (4.0-6.0) 01/24/25 04:42 Calculated Osmolality 300 mOsm/kg (285-295) H 01/29/25 07:26 Lactic Acid 1.0 mmol/L (0.5-2.2) 01/23/25 14:53 Calcium 9.3 mg/dL (8.5-10.5) 01/29/25 07:26 Phosphorus 1.7 mg/dL (2.5-4.5) L 01/29/25 07:26 Magnesium 2.1 mg/dL (1.7-2.3) 01/29/25 07:26 Total Bilirubin 0.5 mg/dL (0.15-1.2) 01/29/25 07:26 AST 27 U/L (0-40) 01/29/25 07:26 ALT 13 U/L (0-41) 01/29/25 07:26 Alkaline Phosphatase 83 U/L (40-130) 01/29/25 07:26 Troponin T 5th Gen ng/L 274 ng/L (0-15) H* 01/27/25 16:20 Troponin T Baseline 95 ng/L (0-15) H 01/26/25 11:10 Troponin T 120 Minute 106.8 ng/L (0-15) H 01/26/25 14:29 Delta Troponin T 11.8 ABS# (0-10) H* 01/26/25 14:29 Troponin T Hi Sens 6Hr 115.2 ng/L (0-15) H 01/26/25 17:31 Troponin T Hi Sens 6Hr Delta 20.2 ng/L (0-12) H* 01/26/25 17:31 C-Reactive Protein 103.8 mg/L (0.0-4.9) H 01/29/25 07:26 NT-Pro-B Natriuret Pep 78882 pg/mL (0-125) H 01/29/25 07:26 Total Protein 6.5 g/dL (6.6-8.7) L 01/29/25 07:26 Albumin 3.4 g/dL (3.5-5.2) L 01/29/25 07:26 Globulin 3.1 g/dL (1.3-4.6) 01/29/25 07:26 Procalcitonin 0.25 ng/mL (0-0.5) 01/26/25 05:11 TSH 1.68 uIU/mL (0.27-4.20) 01/24/25 04:42 Urine Color Yellow (Yellow) 01/23/25 15:58 Urine Appearance Turbid (CLEAR) A 01/23/25 15:58 Urine pH 7.5 (5-7) 01/23/25 15:58 Ur Specific Bandera 1.010 (1.005-1.030) 01/23/25 15:58 Urine Protein 3+ (Negative) A 01/23/25 15:58 Urine Glucose (UA) Negative (Normal) 01/23/25 15:58 Urine Ketones Negative (Negative) 01/23/25 15:58 Urine Blood Negative (Negative) 01/23/25 15:58 Urine Nitrate Negative (Negative) 01/23/25 15:58 Urine Bilirubin Negative (Negative) 01/23/25 15:58 Urine Urobilinogen 1.0 mg/dL (Negative) 01/23/25 15:58 Ur Leukocyte Esterase 3+ (Negative) A 01/23/25 15:58 Urine RBC 6-10 /hpf (0-2) 01/23/25 15:58 Urine WBC >100 /hpf (0-5) H 01/23/25 15:58 Ur Squamous Epith Cells 0-5 /hpf (0-5) 01/23/25 15:58 Amorphous Sediment Not Reportable 01/23/25 15:58 Urine Bacteria Exceeds /hpf (NONE) 01/23/25 15:58 Hyaline Casts 0.40 /lpf 01/23/25 15:58 Vancomycin Trough 18.2 ug/mL (10-15) H 01/26/25 08:22 Random Vancomycin 25.2 ug/mL (20.0-40.0) 01/29/25 07:26 Free Carbamazepine 2.0 mcg/mL (1.0-3.0) 01/23/25 21:00 Adenovirus (PCR) Not detected (NOT DETECT) 01/26/25 11:06 C. pneumoniae DNA (PCR) Not detected (NOT DETECT) 01/26/25 11:06 Coronavirus 229E (PCR) Not detected (NOT DETECT) 01/26/25 11:06 Hep Bs Antigen Non-reactive (Nonreactive) 01/23/25 19:11 Hep Bs Antibody 8.7 (11.5-1000) L 01/23/25 19:11 Human Metapneumovir PCR Not detected (NOT DETECT) 01/26/25 11:06 Influenza A (H1) PCR Not detected (NOT DETECT) 01/26/25 11:06 Influenza A (PCR) Negative (Negative) 01/23/25 17:11 Influ A (H1/09) PCR Not detected (NOT DETECT) 01/26/25 11:06 Influenza A (H3) PCR Not detected (NOT DETECT) 01/26/25 11:06 Influenza Type A (PCR) Not detected (NOT DETECT) 01/26/25 11:06 Influenza Type B (PCR) Not detected (NOT DETECT) 01/26/25 11:06 M. pneumoniae (PCR) Not detected (NOT DETECT) 01/26/25 11:06 Parainfluenza 1 (PCR) Not detected (NOT DETECT) 01/26/25 11:06 Parainfluenza 2 (PCR) Not detected (NOT DETECT) 01/26/25 11:06 Parainfluenza 3 (PCR) Not detected (NOT DETECT) 01/26/25 11:06 Parainfluenza 4 (PCR) Not detected (NOT DETECT) 01/26/25 11:06 RSV (PCR) Negative (Negative) 01/23/25 17:11 RSV Type A (PCR) Not detected (NOT DETECT) 01/26/25 11:06 RSV Type B (PCR) Not detected (NOT DETECT) 01/26/25 11:06 Entero/Rhino (PCR) Not detected (NOT DETECT) 01/26/25 11:06 SARS-CoV-2 (PCR) Not detected (NOT DETECT) 01/26/25 11:06 Vitals Last Vital Signs Temp 97.7 F 01/29/25 09:42 Pulse 77 01/29/25 09:42 Resp 18 01/29/25 09:42 BP 184/94 01/29/25 09:42 Pulse Ox 98 01/29/25 08:13 O2 Del Method Room Air 01/29/25 08:13 O2 Flow Rate 4 01/27/25 15:46 Discharge Plan Discharge Patient Disposition: Home Condition: Stable Prescriptions: New erythromycin 5 mg/gram (0.5 %) Ointment 1 applic eye-left QID 7 Days Qty: 3.5 0RF polyethylene glycol 3350 17 gram Powder In Packet 17 g PO DAILY PRN (Reason: constipation) 30 Days Qty: 30 0RF amoxicillin-pot clavulanate [Augmentin] 500-125 mg tablet 1 tab PO DAILY 7 Days Qty: 7 0RF Continued carbamazepine 200 mg Tablet 200 mg PO TID@,14,21 amlodipine 10 mg Tablet 10 mg PO DAILY@09 benztropine 1 mg Tablet 1 mg PO BID@, multivitamin with folic acid [Daily-Sean (with folic acid)] 400 mcg tablet 1 tab PO DAILY@09 gabapentin 300 mg capsule 300 mg PO DAILY@09 trazodone 100 mg tablet 200 mg PO QPM insulin aspart U-100 [Novolog FlexPen U-100 Insulin] 100 unit/mL (3 mL) insulin pen See Rx Instructions .ROUTE .COMPLEX Rx Instructions: Inject SUBCUTANEOUSLY FOUR TIMES DAILY PER sliding scale NEEDED with meals. max of 56 units EVERY DAY. SS: bs 141-180=2 units, 181-220=4 units,221- 260=6 units, 261-300=8 units, 301-350=10 units, 651-400=12 units, 401 or greater=14 units. aripiprazole 15 mg tablet 15 mg PO QPM lurasidone [Latuda] 120 mg tablet 120 mg PO QPM naloxone [Narcan] 4 mg/actuation spray,non-aerosol 1 spray INTRANASAL PRN PRN (Reason: Opioid Reversal) aspirin 325 mg tablet,delayed release (DR/EC) 325 mg PO DAILY fenofibrate 160 mg tablet 160 mg PO DAILY famotidine 20 mg tablet 20 mg PO BID acetaminophen [Tylenol] 325 mg Tablet 650 mg PO QID PRN (Reason: Pain) hydrocodone-acetaminophen 5-325 mg tablet 1 tab PO DAILY PRN (Reason: Pain) lisinopril 20 mg tablet 20 mg PO BEDTIME clonazepam 0.5 mg tablet See Rx Instructions .ROUTE .COMPLEX Rx Instructions: TAKE 1 TABLET BY MOUTH DAILY before dialysis on Sunday, Sunday, and Sunday for anxiety. loperamide 2 mg Tablet See Rx Instructions .ROUTE .COMPLEX PRN (Reason: Diarrhea) Rx Instructions: Take 2 tablets (4 mg) orally as needed at onset of diarrhea may repeat with each loose stool until symptoms controlled; do not exceed 8 mg per 24 hrs. atorvastatin 10 mg Tablet 10 mg PO QPM Changed carvedilol 25 mg Tablet 12.5 mg PO BID@ Qty: 30 0RF Rx Instructions: must administer with a meal/food. Hold if systolic BP is below 90 or diastolic BP below 60. Held isosorbide mononitrate 30 mg Tablet Extended Release 24 Hr 60 mg PO DAILY Hold Instructions: Resume on 02/02/25. Discontinued hydralazine 50 mg Tablet 75 mg PO QID Discharge Orders: Discharge Order (Routine); Ordered 01/29/25 Ordered By: Enrique Valdes Referrals: [facility] - [Outside] [facility] [Outside] Ahsan Gilliam MD [Primary Care Provider, [facility]] - 02/10/25 9:00 am Discharge Diet: As Directed Discharge Activity: Resume usual activity Patient Instructions: Erythromycin (By mouth), Amoxicillin (By mouth), Polyethylene Glycol 3350 (By mouth), Urinary Tract Infection in Men (DC), Sepsis (DC), Opioid Safety, Pneumonia Stoplight Activity Restrictions/Additional Instructions: -dysphagia level 4 diet, extremely thick liquids Discharge Attestations Time Spent in Discharge Care*: greater than 30 min Status at Discharge: Cognitive status at discharge: moderately impaired cognition , Behavioral status at discharge: cooperative and can be uncooperative , Quality Metrics Clinical Quality Measures [ No reported AMI, CVA or VTE this stay] Coding Level of Care Code 42639 Total time (in minutes) for Discharge: 45 Diagnoses Sepsis A41.9 End stage renal disease on dialysis N18.6; Z99.2 Complicated UTI (urinary tract infection) N39.0 Acute hypoxic respiratory failure J96.01 Aspiration pneumonia J69.0 Aspiration pneumonitis J69.0 CHF exacerbation I50.9
--- NOTE | 2025-01-29 11:13 | PC.HD ---
Due to emergent dialysis case in ICU, Dr. Manzanares requesting patient's treatment terminate an hour early. Patient will run 2 hours today instead of prescribed 3 hours.
[2025-01-29] MEDS: epoetin alfa-epbx 10,000 unit/ml SDV (ESRD) 10000 UNIT SUBCUT (11:19)
[2025-01-29 12:04] LABS: Glucose Point of Care 98 mg/dL (70-110)
[2025-01-29] MEDS: meropenem 500 mg SDV IVP (12:18)
--- NOTE | 2025-01-29 13:20 | PC.NURSE ---
[facility] was given report.
--- NOTE | 2025-01-29 13:30 | PC.NURSE ---
meds to bed delivered.
--- NOTE | 2025-01-29 14:00 | PC.NURSE ---
Patient's transport [facility] staff came here to pick her up for transport. Discharge packet provided to pt. Notified Dr. Valdes in regards to staff questions about the discussion from yesterday about G-tube placement? Notified [facility] staff that i will verify it with dr valdes. 1453 pm-Dr Valdes replied back that No Peg tube and just continue dysphagia level 4 extr.thickened fluids.
--- NOTE | 2025-01-29 15:05 | P.PN_ITS ---
Subjective 2 Subjective: no new complaints Medications: Reviewed: Yes Vitals/I&O/Wt Last Vital Signs Temp 97.9 F 01/29/25 11:46 Pulse 82 01/29/25 12:38 Resp 12 01/29/25 12:00 BP 151/87 01/29/25 12:38 Pulse Ox 98 01/29/25 12:38 O2 Del Method Room Air 01/29/25 08:13 O2 Flow Rate 4 01/27/25 15:46 01/29/25 01/29/25 01/29/25 06:59 14:59 22:59 Intake Total 128.283 / 800.150 799.100 / 799.100 Output Total 0 / 0 1700 / 1700 Balance 128.283 / 800.150 -900.900 / -900.900 Weight last 48 hrs Weight 49.9 kg Weight 53.5 kg Weight 48 kg Weight 48.7 kg Physical Exam 2 Narrative: , no distress S1-S2 regular rate and rhythm per report Lungs +crackles per report Abdomen soft nontender per report no edema Data 01/29/25 06:07 01/29/25 07:26 Micro: Microbiology 01/23/25 14:56 Blood Culture - Final Blood NO GROWTH AFTER 5 DAYS 01/23/25 14:53 Blood Culture - Final Blood NO GROWTH AFTER 5 DAYS A&P Assessment and plan (1) End stage renal disease on dialysis: Plan 1. End-stage renal disease: MWF schedule, hd today 2. Sepsis likely from UTI, cultures pending, 3. Anemia: Will order GEOFF with HD 4. History of hypertension 5. Encephalopathy, metabolic in the setting of sepsis, monitor 6. ? Aspiration , improved , on room air Patient evaluated using audiovisual cart. Time spent 40 minutes PDMP PDMP Reviewed: Not Reviewed Attestations 2 Medical Necessity Statement*: per callie Coding Level of Care Code Acute Code for Chg Fwd Diagnoses End stage renal disease on dialysis N18.6; Z99.2
== END 2025-01-29 13:21 | disposition home or self-care (01) | DRG 871 ==
LOC: ER 17:28 → MEDSURG 18:24 → ICU 01-26 16:02 → CSU 01-28 18:11
PROVIDERS: Hospitalist; Internal Medicine; Admitting Provider Family Medicine; Emergency Provider Emergency Medicine; PCP Family Medicine; Visit Provider Family Medicine
DX: A41.9 Sepsis, unspecified organism (principal); I50.43 Acute on chronic combined systolic (congestive) and diastolic (congestive) heart failure; G93.41 Metabolic encephalopathy; J69.0 Pneumonitis due to inhalation of food and vomit; J96.01 Acute respiratory failure with hypoxia; N18.6 End stage renal disease; I21.4 Non-ST elevation (NSTEMI) myocardial infarction; N39.0 Urinary tract infection, site not specified; Z16.12 Extended spectrum beta lactamase (ESBL) resistance; G93.40 Encephalopathy, unspecified; I13.2 Hypertensive heart and chronic kidney disease with heart failure and with stage 5 chronic kidney disease, or end stage renal disease; B96.20 Unspecified Escherichia coli [E. coli] as the cause of diseases classified elsewhere; F79 Unspecified intellectual disabilities; E11.22 Type 2 diabetes mellitus with diabetic chronic kidney disease; I95.9 Hypotension, unspecified; E78.5 Hyperlipidemia, unspecified; D63.1 Anemia in chronic kidney disease; F17.200 Nicotine dependence, unspecified, uncomplicated; Z11.52 Encounter for screening for COVID-19; Z79.4 Long term (current) use of insulin; Z79.82 Long term (current) use of aspirin; Z79.899 Other long term (current) drug therapy; Z86.14 Personal history of Methicillin resistant Staphylococcus aureus infection; Z99.2 Dependence on renal dialysis; Z99.3 Dependence on wheelchair
CPT/HCPCS: 36415; 36416; 36573; 36592; 36600; 70450; 71045; 74018; 74176; 74230; 80053; 80157; 80202; 81001; 82803; 82962; 83036; 83605; 83735; 83880; 84100; 84145; 84443; 84484; 85025; 85730; 86140; 86706; 87040; 87077; 87086; 87186; 87340; 87486; 87581; 87633; 87637; 90935; 92523; 92526; 92610; 92611; 93005; 93308; 94640; 94664; 96365; 96367; 96372; 96374; 96375; 96376; 99285; J0360; J1644; J1650; J1815; J2185; J2405; J2470; J2765; J3370; J7040; J7050; J7626; J9999; P9047; Q3014; Q5105

== ENCOUNTER 2025-02-04 13:51 | Emergency (ER) | payer MEDICAID, SELFPAY ==
[2025-02-04] VITALS (31 sets, daily range): BP systolic 92–147; BP diastolic 49–69; PULSE 62–70; RESP 5–18; TEMP 36.3; O2SAT 97–100; BMI 17.6
--- NOTE | 2025-02-04 14:11 | XRR_ITS ---
PROCEDURE INFORMATION: Exam: XR Chest Exam date and time: 02/04/2025 2:34 PM Age: 54 years old Clinical indication: Other: Altered mental status TECHNIQUE: Imaging protocol: Radiologic exam of the chest. Views: 1 view. COMPARISON: CR XR chest 1V portable [id number] 01/27/2025 7:07 AM FINDINGS: Tubes, catheters and devices: A right-sided tunneled central venous dialysis catheter is in good position. Lungs: Both lungs demonstrate diffuse interstitial coarsening which is felt to be chronic. No lung mass or infiltrate. Pleural spaces: Unremarkable. No pleural effusion. No pneumothorax. Heart/Mediastinum: Mild cardiomegaly is noted. Bones/joints: Unremarkable. XR/XR chest 1V portable [id number] IMPRESSION: Stable cardiomegaly
--- NOTE | 2025-02-04 14:11 | CT_ITS ---
WS: [id number] CT HEAD TECHNIQUE: Noncontrast CT of the head obtained from the skullbase to the vertex. CLINICAL INFORMATION: altered mental status COMPARISON: None. DLP: 1058.[address] scans at [facility] use at least one of these dose optimization techniques: automated exposure control; mA and/or kV adjustment per patient size (includes targeted exams where dose is matched to clinical indication); or iterative reconstruction. FINDINGS: No evidence of intracranial hemorrhage or mass effect. Ventricular system and basal cisterns are patent. Advanced small vessel changes with moderate parenchymal volume loss. No extra-axial fluid collections. No evidence of mass or mass effect. Vascular calcification. Paranasal sinuses and mastoid air cells are well aerated. .Normal visualized soft tissues. CT/CT head wo con* [id number] IMPRESSION: 1. No evidence of intracranial hemorrhage or mass effect. 2. No acute intracranial findings.
[2025-02-04] MEDS: sodium chloride 0.9% 500 ML IV (14:25)
--- NOTE | 2025-02-04 14:28 | W.ED.WEAKNES ---
HPI - Weakness General: Chief complaint: Weakness Stated complaint: Unresponsive/HTN Time Seen by Provider: 02/04/25 14:02 History of Present Illness: 54-year-old male presents from dialysis chief complaint of hypotension and altered mental status patient resolved resides at a long-term care facility due to developmental delay as he cannot take care of himself he has a history of chronic both pain medication as well as anxiety medications he has been provided patient was found by EMS to be hypotensive and unresponsive in which he responded to Narcan and IV fluids patient typically is nonverbal patient does not did not sustain any other associated injuries or falls he does not normally ambulate, he presents to the ER by EMS from dialysis for further assessment management. Associated symptoms: Reports confusion; Denies chest pain, chills, fever(s), headache(s), nausea or vomiting Review of Systems General: Reports: 10 or more systems reviewed and unremarkable except in HPI and below Const: Denies: fever(s), chills, fatigue or malaise Eyes: Denies: change in vision or blurry vision Card: Denies: chest pain or palpitations Resp: Denies: dyspnea or productive cough GI: Denies: abdominal pain, nausea or vomiting : Denies: flank pain Musc: Denies: extremity pain or extremity swelling Skin/Breast: Denies: rash or pruritus Neuro: Reports: confusion and other (Altered mental status); Denies: headache(s) Psych: Denies: anxiety or depression Brandan/Lymph: Denies: easy bleeding All/Imm: Denies: urticaria, throat swelling or facial swelling PFS ED PFSH: Medical History Malignant hypertension ESRD (end stage renal disease) Hyperlipemia, mixed Acute renal failure Acute kidney injury superimposed on CKD Acute hyponatremia Hyponatremia Anemia Hypervolemia Tobacco abuse Diabetes Social History Smoking and tobacco/nicotine status: current every day tobacco/nicotine user Physical Exam Const: COMMON NORMALS: no acute distress and healthy appearing; negative for patient oriented x3 (Currently at baseline no obvious focal neurodeficits appreciated) OTHER: He is arousable to painful stimuli patient is at baseline with no focal neurodeficits HENMT: COMMON NORMALS: normocephalic and atraumatic HEAD & SCALP: normocephalic and atraumatic Eye: COMMON NORMALS: Equal, round and reactive pupils present and EOMs intact bilaterally PUPIL: Yes Equal, round and reactive pupils present Neck/C-Spine: COMMON NORMALS: full ROM, supple and no JVD Lymph: LYMPHATIC: no lymphadenopathy noted Chest: COMMONS NORMALS: normal inspection of the chest and normal palpation of entire chest wall Resp: COMMON NORMALS: normal respiratory effort, No retractions and clear to auscultation bilaterally EFFORT & INSPECTION: Yes able to speak in complete sentences and Yes symmetric chest movement AUSCULTATION: clear to auscultation bilaterally Cardio: COMMON NORMALS: no JVD, regular rate and regular rhythm RATE: regular rate RHYTHM: regular rhythm GI: COMMON NORMALS: Normal to inspection, nondistended, normoactive bowel sounds present, Soft to palpation and non-tender INSPECTION: Yes normal to inspection PALPATION: Yes Soft to palpation : COMMON NORMALS: Yes no CVA tenderness BLADDER/KIDNEY EXAM: Yes no CVA tenderness Back/Pelvis: COMMON NORMALS: no CVA tenderness Extremity: COMMON NORMALS: normal to inspection and full ROM Neuro: COMMON NORMALS: CN's II-XII intact bilaterally, moves all extremities and no focal motor deficits; negative for patient oriented x3 (Currently at baseline no obvious focal neurodeficits appreciated) Psych: COMMON NORMALS: mental status grossly normal, Normal thought process present, cooperative and normal affect THOUGHT PROCESS: Normal thought process present Skin: COMMON NORMALS: no rashes or lesions noted GENERAL SKIN EXAM: no rashes or lesions noted Course Vital Signs: Vital signs: Vital Signs Temperature 97.4 F L 02/04/25 13:59 Pulse Rate 70 02/04/25 16:35 Respiratory Rate 9 L 02/04/25 16:35 Blood Pressure 140/65 02/04/25 16:35 Pulse Oximetry 98 02/04/25 16:35 Oxygen Delivery Me thod Room Air 02/04/25 14:05 MDM - Weakness Medical Decision Making Due to patient's symptoms and condition IV will be established basic lab work and imaging will be obtained we will continue to follow. Patient is much improved with the Narcan IV fluids provide I suspect possibly a accidental opioid overdose due to to progress chronic renal failure is prominent we will continue to follow. Patient blood pressure continue to be good upon discharge 147/77 heart rate is 55 the patient is awake and alert at baseline I believe that this is a combination of slightly too much opiates chronic opiate use with his chronic renal failure further follow-up and to be have a higher discretion on his pain medication regiment advised further follow-up with primary care in 3 to 5 days as needed and which return the interim if any of his symptoms persist or worse. Lab Data 02/04/25 14:25 02/04/25 14:25 Radiology Impressions Chest X-Ray 02/04/25 14:11 IMPRESSION: Stable cardiomegaly Head CT 02/04/25 14:11 IMPRESSION: 1. No evidence of intracranial hemorrhage or mass effect. 2. No acute intracranial findings. Laboratory Results WBC 5.14 10^3/uL (3.29-11.43) 02/04/25 14: RBC 2.66 10^6/uL (3.85-5.65) L 02/04/25 14:25 Hgb 8.20 g/dL (11.27-16.99) L 02/04/25 14:25 Hct 26.3 % (37-53) L 02/04/25 14:25 MCV 98.9 fl (82-101) 02/04/25 14:25 MCH 30.8 pg (27-33) 02/04/25 14:25 MCHC 31.2 g/dL (30-55) 02/04/25 14:25 RDW 16.8 % (12.1-15.1) H 02/04/25 14:25 Plt Count 218 10^3/cmm (157-399) 02/04/25 14:25 MPV 10.7 fL (7.4-10.4) H 02/04/25 14:25 Neut % (Auto) 65.5 % 02/04/25 14:25 Lymph % (Auto) 24.5 % 02/04/25 14:25 [place] % (Auto) 8.0 % 02/04/25 14:25 Eos % (Auto) 0.8 % 02/04/25 14:25 Baso % (Auto) 0.4 % 02/04/25 14:25 Neut # (Auto) 3.37 10^3/uL (1.8-7.7) 02/04/25 14:25 Lymph # (Auto) 1.3 10^3/uL (0.8-4.8) 02/04/25 14:25 [place] # (Auto) 0.4 10^3/uL (0.2-0.9) 02/04/25 14:25 Eos # (Auto) 0.0 10^3/uL (0.0-0.8) 02/04/25 14:25 Baso # (Auto) 0.0 10^3/uL (0.0-0.1) 02/04/25 14:25 Nucleated RBC % (auto) 0.6 % 02/04/25 14: Nucleated RBCs # 0.0 /100WBC 02/04/25 14:25 Sodium 134 mmol/L (136-145) L 02/04/25 14:25 Potassium 5.1 mmol/L (3.5-5.1) 02/04/25 14:25 Chloride 96 mmol/L (98-107) L 02/04/25 14:25 Carbon Dioxide 27 mmol/L (22-29) 02/04/25 14:25 Anion Gap 16.1 (5-19) 02/04/25 14:25 BUN 26 mg/dL (6-20) H 02/04/25 14:25 Creatinine 2.9 mg/dL (0.7-1.2) H 02/04/25 14:25 GFR Calculation 27.5 mL/min (90-130) L 02/04/25 14:25 Glucose 146 mg/dL (65-115) H 02/04/25 14:25 Calculated Osmolality 285 mOsm/kg (285-295) 02/04/25 14:25 Lactic Acid 1.9 mmol/L (0.5-2.2) 02/04/25 14:25 Calcium 9.0 mg/dL (8.5-10.5) 02/04/25 14:25 Total Bilirubin 0.3 mg/dL (0.15-1.2) 02/04/25 14:25 AST 21 U/L (0-40) 02/04/25 14:25 ALT 11 U/L (0-41) 02/04/25 14:25 Alkaline Phosphatase 81 U/L (40-130) 02/04/25 14:25 C-Reactive Protein 11.8 mg/L (0.0-4.9) H 02/04/25 14:25 Total Protein 6.2 g/dL (6.6-8.7) L 02/04/25 14:25 Albumin 3.4 g/dL (3.5-5.2) L 02/04/25 14:25 Globulin 2.8 g/dL (1.3-4.6) 02/04/25 14:25 All radiology interpretation(s) finalized by discharge Discharge Plan Discharge Patient Disposition: Home Clinical Impression: Transient hypotension, Dialysis patient Accidental opiate poisoning Qualifiers: Encounter type: initial encounter Qualified Code(s): T40.601A - Poisoning by unspecified narcotics, accidental (unintentional), initial encounter Chronic renal failure Qualifiers: Chronic kidney disease stage: unspecified stage Qualified Code(s): N18.9 - Chronic kidney disease, unspecified Condition: Stable Prescriptions: No Action carbamazepine 200 mg Tablet 200 mg PO TID@,, amlodipine 10 mg Tablet 10 mg PO DAILY@09 benztropine 1 mg Tablet 1 mg PO BID@, multivitamin with folic acid [Daily-Sean (with folic acid)] 400 mcg tablet 1 tab PO DAILY@09 gabapentin 300 mg capsule 300 mg PO DAILY@09 isosorbide mononitrate 30 mg Tablet Extended Release 24 Hr 60 mg PO DAILY trazodone 100 mg tablet 200 mg PO QPM insulin aspart U-100 [Novolog FlexPen U-100 Insulin] 100 unit/mL (3 mL) insulin pen See Rx Instructions .ROUTE .COMPLEX Rx Instructions: Inject SUBCUTANEOUSLY FOUR TIMES DAILY PER sliding scale NEEDED with meals. max of 56 units EVERY DAY. SS: bs 141-180=2 units, 181-220=4 units,221-260=6 units, 261-300=8 units, 301-350=10 units, 651-400=12 units, 401 or greater=14 units. aripiprazole 15 mg tablet 15 mg PO QPM naloxone [Narcan] 4 mg/actuation spray,non-aerosol 1 spray INTRANASAL PRN PRN (Reason: Opioid Reversal) aspirin 325 mg tablet,delayed release (DR/EC) 325 mg PO DAILY fenofibrate 160 mg tablet 160 mg PO DAILY famotidine 20 mg tablet 20 mg PO BID acetaminophen [Tylenol] 325 mg Tablet 650 mg PO QID PRN (Reason: Pain) hydrocodone-acetaminophen 5-325 mg tablet 1 tab PO DAILY PRN (Reason: Pain) lisinopril 20 mg tablet 20 mg PO BEDTIME clonazepam 0.5 mg tablet See Rx Instructions .ROUTE .COMPLEX Rx Instructions: TAKE 1 TABLET BY MOUTH DAILY before dialysis on Sunday, Sunday, and Sunday for anxiety. loperamide 2 mg Tablet See Rx Instructions .ROUTE .COMPLEX PRN (Reason: Diarrhea) Rx Instructions: Take 2 tablets (4 mg) orally as needed at onset of diarrhea may repeat with each loose stool until symptoms controlled; do not exceed 8 mg per 24 hrs. atorvastatin 10 mg Tablet 10 mg PO QPM erythromycin 5 mg/gram (0.5 %) Ointment 1 applic eye-left QID 7 Days Qty: 3.5 0RF polyethylene glycol 3350 17 gram Powder In Packet 17 g PO DAILY PRN (Reason: constipation) 30 Days Qty: 30 0RF carvedilol 25 mg Tablet 12.5 mg PO BID@, Qty: 30 0RF Rx Instructions: must administer with a meal/food. Hold if systolic BP is below 90 or diastolic BP below 60. amoxicillin-pot clavulanate [Augmentin] 500-125 mg tablet 1 tab PO DAILY 7 Days Qty: 7 0RF Discharge Orders: Discharge ED (Routine); Ordered 02/04/25 Ordered By: Hernandez Rocha Referrals: Ahsan Gilliam MD [Primary Care Provider, [facility]] - 1-3 days Discharge Diet: Advance as tolerated Discharge Activity: Increase activity as tolerated Patient Instructions: Narcotic Safety (ED), Opioid Safety (ED), End Stage Kidney Disease (ED), Hemodialysis (DC), Prescription Narcotic Overdose (ED), Opioid Safety, Pain Management Activity Restrictions/Additional Instructions: Please be careful in regards to the amount of opiates that the patient receives especially with chronic renal disease they will stick around longer it is best recommended to further follow-up with the patient's primary care doctor for further evaluation management of this the rest of the patient's lab work and imaging is come back reassuring please further follow-up in the next 1 to 3 days and was to return the interim if any of his symptoms persist or worse. 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 Driver for Maria R Fwd Related Data Home Medications ?Medication ?Instructions ?Recorded ?Confirmed amlodipine 10 mg tablet 10 mg PO DAILY@03/30/23 02/04/25 benztropine 1 mg tablet 1 mg PO BID@,03/30/23 02/04/25 carbamazepine 200 mg tablet 200 mg PO TID@,,03/30/23 02/04/25 multivitamin with folic acid 400 1 tab PO DAILY@03/30/23 02/04/25 mcg tablet (Daily-Sean (with folic acid)) gabapentin 300 mg capsule 300 mg PO DAILY@10/24/23 02/04/25 aripiprazole 15 mg tablet 15 mg PO QPM 12/07/23 02/04/25 naloxone 4 mg/actuation nasal 1 spray intranasal PRN PRN Opioid 01/30/24 02/04/25 spray (Narcan) Reversal aspirin 325 mg tablet,delayed 325 mg PO DAILY 02/15/24 02/04/25 release fenofibrate 160 mg tablet 160 mg PO DAILY 02/15/24 02/04/25 acetaminophen 325 mg tablet 650 mg PO QID PRN Pain 09/04/24 02/04/25 (Tylenol) clonazepam 0.5 mg tablet See Rx Instructions .Route .COMPLEX 09/04/24 02/04/25 famotidine 20 mg tablet 20 mg PO BID 09/04/24 02/04/25 hydrocodone 5 mg-acetaminophen 325 1 tab PO DAILY PRN Pain 09/04/24 02/04/25 mg tablet lisinopril 20 mg tablet 20 mg PO BEDTIME 09/04/24 02/04/25 loperamide 2 mg tablet See Rx Instructions .Route 09/04/24 02/04/25 .COMPLEX PRN Diarrhea insulin aspart U-100 100 unit/mL See Rx Instructions .Route .COMPLEX 12/07/24 02/04/25 (3 mL) subcutaneous pen (Novolog FlexPen U-100 Insulin aspart) isosorbide mononitrate 30 mg 60 mg PO DAILY 12/07/24 02/04/25 tablet,extended release 24 hr Held on 01/29/25. Instructions: Resume on 02/02/25. trazodone 100 mg tablet 200 mg PO QPM 12/07/24 02/04/25 atorvastatin 10 mg tablet 10 mg PO QPM 01/23/25 02/04/25 Previous Rx's ?Medication ?Instructions ?Recorded amoxicillin 500 mg-potassium 1 tab PO DAILY 7 days #7 tabs 01/29/25 clavulanate 125 mg tablet (Augmentin) carvedilol 25 mg tablet 12.5 mg (1/2 x 25 mg) PO BID@09,21 01/29/25 #30 tabs erythromycin 5 mg/gram (0.5 %) eye 1 applic eye-left QID 7 days #3.5 01/29/25 ointment (3.5 gram tube) grams polyethylene glycol 3350 17 gram 17 g PO DAILY PRN constipation 30 01/29/25 oral powder packet days #30 ea Allergies Allergy/AdvReac Type Severity Reaction Status Date / Time No Known Allergies Allergy Verified 12/14/24 20:19
[2025-02-04 14:29] LABS: Basophils % 0.4 %; Eosinophils % 0.8 %; Hematocrit 26.3 % (37-53); Lymphocytes # 1.3 10^3/uL (0.8-4.8); Lymphocytes % 24.5 %; Mean Corpuscular HGB Conc 31.2 g/dL (30-55); Mean Corpuscular Hemoglobin 30.8 pg (27-33); Mean Corpuscular Volume 98.9 fl (82-101); Mean Platelet Volume 10.7 fL (7.4-10.4); Monocytes # 0.4 10^3/uL (0.2-0.9); Neutrophils # 3.37 10^3/uL (1.8-7.7); Neutrophils % 65.5 %; Nucleated Red Blood Cells % 0.6 %; Platelet Count 218 10^3/cmm (157-399); Red Blood Count 2.66 10^6/uL (3.85-5.65); Red Cell Distribution Width 16.8 % (12.1-15.1); White Blood Count 5.14 10^3/uL (3.29-11.43)
[2025-02-04 14:46] LABS: Alanine Aminotransferase 11 U/L (0-41); Albumin Level 3.4 g/dL (3.5-5.2); Alkaline Phosphatase 81 U/L (40-130); Anion Gap 16.1 (5-19); Aspartate Amino Transferase 21 U/L (0-40); Blood Urea Nitrogen 26 mg/dL (6-20); C Reactive Protein 11.8 mg/L (0.0-4.9); Carbon Dioxide 27 mmol/L (22-29); Chloride 96 mmol/L (98-107); Creatinine Clr Calc Pharmacy 21.4198; Globulin 2.8 g/dL (1.3-4.6); Glomerular Filtration Rate 27.5 mL/min (90-130); Glucose 146 mg/dL (65-115); Osmolality Calculated 285 mOsm/kg (285-295); Potassium 5.1 mmol/L (3.5-5.1); Sodium 134 mmol/L (136-145); Total Bilirubin 0.3 mg/dL (0.15-1.2); Total Protein 6.2 g/dL (6.6-8.7)
[2025-02-04 14:47] LABS: Lactic Sepsis W/Reflex 1.9 mmol/L (0.5-2.2)
--- NOTE | 2025-02-04 16:19 | ECG_ITS ---
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 Measurements Intervals [place] Rate: 61 P: 44 OR: 179 QRS: -62 QRSD: 142 T: 6 QT: 426 QTc: 431 Interpretive Statements SINUS RHYTHM INTRAVENTRICULAR CONDUCTION DELAY [130+ ms QRS DURATION] Compared to ECG 01/26/2025 16:44:20 First degree AV block no longer present Electronically Signed On 02-04-2025 23:32:49 CDT by Yovanny Pinon M.D. [id number]
== END 2025-02-04 17:16 | disposition home or self-care (01) ==
PROVIDERS: Emergency Provider Emergency Medicine; PCP Family Medicine
DX: I95.89 Other hypotension (principal); T40.601A Poisoning by unspecified narcotics, accidental (unintentional), initial encounter; E11.22 Type 2 diabetes mellitus with diabetic chronic kidney disease; I12.0 Hypertensive chronic kidney disease with stage 5 chronic kidney disease or end stage renal disease; N18.6 End stage renal disease; Z99.2 Dependence on renal dialysis; E78.2 Mixed hyperlipidemia; Z72.0 Tobacco use; X58.XXXA Exposure to other specified factors, initial encounter; Z79.4 Long term (current) use of insulin; Z79.82 Long term (current) use of aspirin
CPT/HCPCS: 36415; 70450; 71045; 80053; 83605; 85025; 86140; 93005; 99285; J7040

== ENCOUNTER 2025-02-11 16:27 | Emergency (ER) | payer MEDICAID, SELFPAY ==
[2025-02-11 16:29] VITALS: BP 204/96; PULSE 99; RESP 16; TEMP 36.8; O2SAT 99
--- NOTE | 2025-02-11 17:05 | W.ED.NAVMDI ---
HPI - Nausea/Vomiting/Diarrhea General: Chief complaint: Nausea/Vomiting/Diarrhea Stated complaint: V/N Time Seen by Provider: 02/11/25 16:34 History of Present Illness: This patient is a 54-year-old black male who has a history of MR as well as end-stage renal disease on dialysis. He was at dialysis today. Staff member states that he ate a big lunch just prior to going into dialysis and then he vomited while he was undergoing dialysis. Dialysis was completed. He has not vomited since he has left the dialysis clinic. He does [facility] in a [facility] and he is here with a staff member from the penitentiary. Related Data Home Medications ?Medication ?Instructions ?Recorded ?Confirmed amlodipine 10 mg tablet 10 mg PO DAILY@03/30/23 02/04/25 benztropine 1 mg tablet 1 mg PO BID@,03/30/23 02/04/25 carbamazepine 200 mg tablet 200 mg PO TID@,,03/30/23 02/04/25 multivitamin with folic acid 400 1 tab PO DAILY@03/30/23 02/04/25 mcg tablet (Daily-Sean (with folic acid)) gabapentin 300 mg capsule 300 mg PO DAILY@10/24/23 02/04/25 aripiprazole 15 mg tablet 15 mg PO QPM 12/07/23 02/04/25 naloxone 4 mg/actuation nasal 1 spray intranasal PRN PRN Opioid 01/30/24 02/04/25 spray (Narcan) Reversal aspirin 325 mg tablet,delayed 325 mg PO DAILY 02/15/24 02/04/25 release fenofibrate 160 mg tablet 160 mg PO DAILY 02/15/24 02/04/25 acetaminophen 325 mg tablet 650 mg PO QID PRN Pain 09/04/24 02/04/25 (Tylenol) clonazepam 0.5 mg tablet See Rx Instructions .Route .COMPLEX 09/04/24 02/04/25 famotidine 20 mg tablet 20 mg PO BID 09/04/24 02/04/25 hydrocodone 5 mg-acetaminophen 325 1 tab PO DAILY PRN Pain 09/04/24 02/04/25 mg tablet lisinopril 20 mg tablet 20 mg PO BEDTIME 09/04/24 02/04/25 loperamide 2 mg tablet See Rx Instructions .Route 09/04/24 02/04/25 .COMPLEX PRN Diarrhea insulin aspart U-100 100 unit/mL See Rx Instructions .Route .COMPLEX 12/07/24 02/04/25 (3 mL) subcutaneous pen (Novolog FlexPen U-100 Insulin aspart) isosorbide mononitrate 30 mg 60 mg PO DAILY 12/07/24 02/04/25 tablet,extended release 24 hr Held on 01/29/25. Instructions: Resume on 02/02/25. trazodone 100 mg tablet 200 mg PO QPM 12/07/24 02/04/25 atorvastatin 10 mg tablet 10 mg PO QPM 01/23/25 02/04/25 Previous Rx's ?Medication ?Instructions ?Recorded carvedilol 25 mg tablet 12.5 mg (1/2 x 25 mg) PO BID@,01/29/25 #30 tabs polyethylene glycol 3350 17 gram 17 g PO DAILY PRN constipation 30 01/29/25 oral powder packet days #30 ea ondansetron 4 mg disintegrating 4 mg PO Q6H PRN nausea and 02/11/25 tablet vomiting #10 tabs Allergies Allergy/AdvReac Type Severity Reaction Status Date / Time No Known Allergies Allergy Verified 12/14/24 20:19 Review of Systems General: Reports: ROS unobtainable due to mental status PFSH ED PFSH: Medical History Malignant hypertension ESRD (end stage renal disease) Hyperlipemia, mixed Acute renal failure Acute kidney injury superimposed on CKD Acute hyponatremia Hyponatremia Anemia Hypervolemia Tobacco abuse Diabetes Social History Smoking and tobacco/nicotine status: current every day tobacco/nicotine user Physical Exam Const: COMMON NORMALS: no acute distress GENERAL APPEARANCE: cooperative and comfortable HENMT: COMMON NORMALS: normocephalic, atraumatic, Normal nasal mucous membranes and turbinates present, moist oral mucous membranes and oropharynx normal HEAD & SCALP: normal to inspection, normocephalic and atraumatic FACE & SINUS: normal facial exam NOSE: Normal nasal mucous membranes and turbinates present Eye: COMMON NORMALS: Equal, round and reactive pupils present, EOMs intact bilaterally and conjunctivae normal GENERAL EYE: appearance normal, both eyes and all related structures CONJUNCTIVA: Yes conjunctivae normal PUPIL: Yes Equal, round and reactive pupils present Neck/C-Spine: COMMON NORMALS: supple and no JVD Chest: COMMONS NORMALS: normal inspection of the chest Resp: COMMON NORMALS: normal respiratory effort and clear to auscultation bilaterally AUSCULTATION: clear to auscultation bilaterally Cardio: COMMON NORMALS: no JVD, regular rate, regular rhythm, No gallops present (Cardio), No murmurs present (Cardio) and No rub (Cardio) RATE: regular rate RHYTHM: regular rhythm GI: COMMON NORMALS: Normal to inspection, nondistended, normoactive bowel sounds present, Soft to palpation and non-tender AUSCULTATION: Yes normoactive bowel sounds PALPATION: Yes Soft to palpation : COMMON NORMALS: Yes no CVA tenderness BLADDER/KIDNEY EXAM: Yes no CVA tenderness Back/Pelvis: COMMON NORMALS: no CVA tenderness and thoracic and lumbar spine normal to inspection Extremity: COMMON NORMALS: normal to inspection Neuro: COMMON NORMALS: CN's II-XII intact bilaterally Psych: COMMON NORMALS: cooperative Skin: COMMON NORMALS: no rashes or lesions noted, turgor normal and no jaundice GENERAL SKIN EXAM: no rashes or lesions noted and turgor normal Course Vital Signs: Vital signs: Vital Signs Temperature 98.2 F 02/11/25 16:29 Pulse Rate 99 02/11/25 16:29 Respiratory Rate 16 02/11/25 16:29 Blood Pressure 204/96 02/11/25 16:29 Pulse Oximetry 99 02/11/25 16:29 MDM - Nausea/Vomiting/Diarrhea Medical Decision Making I did prescribe Zofran to be used as needed for the nausea and vomiting. Follow-up with primary care physician as needed. He was discharged in stable condition. No radiology studies performed this visit Discharge Plan Discharge Patient Disposition: Home Clinical Impression: Vomiting Qualifiers: Vomiting type: unspecified Nausea presence: unspecified Qualified Code(s): R11.10 - Vomiting, unspecified Condition: Stable Prescriptions: New ondansetron 4 mg tablet,disintegrating 4 mg PO Q6H PRN (Reason: nausea and vomiting) Qty: 10 0RF No Action carbamazepine 200 mg Tablet 200 mg PO TID@09,14,21 amlodipine 10 mg Tablet 10 mg PO DAILY@09 benztropine 1 mg Tablet 1 mg PO BID@09,21 multivitamin with folic acid [Daily-Sean (with folic acid)] 400 mcg tablet 1 tab PO DAILY@09 gabapentin 300 mg capsule 300 mg PO DAILY@09 isosorbide mononitrate 30 mg Tablet Extended Release 24 Hr 60 mg PO DAILY trazodone 100 mg tablet 200 mg PO QPM insulin aspart U-100 [Novolog FlexPen U-100 Insulin] 100 unit/mL (3 mL) insulin pen See Rx Instructions .ROUTE .COMPLEX Rx Instructions: Inject SUBCUTANEOUSLY FOUR TIMES DAILY PER sliding scale NEEDED with meals. max of 56 units EVERY DAY. SS: bs 141-180=2 units, 181-220=4 units,221-260=6 units, 261-300=8 units, 301-350=10 units, 651-400=12 units, 401 or greater=14 units. aripiprazole 15 mg tablet 15 mg PO QPM naloxone [Narcan] 4 mg/actuation spray,non-aerosol 1 spray INTRANASAL PRN PRN (Reason: Opioid Reversal) aspirin 325 mg tablet,delayed release (DR/EC) 325 mg PO DAILY fenofibrate 160 mg tablet 160 mg PO DAILY famotidine 20 mg tablet 20 mg PO BID acetaminophen [Tylenol] 325 mg Tablet 650 mg PO QID PRN (Reason: Pain) hydrocodone-acetaminophen 5-325 mg tablet 1 tab PO DAILY PRN (Reason: Pain) lisinopril 20 mg tablet 20 mg PO BEDTIME clonazepam 0.5 mg tablet See Rx Instructions .ROUTE .COMPLEX Rx Instructions: TAKE 1 TABLET BY MOUTH DAILY before dialysis on Sunday, Sunday, and Sunday for anxiety. loperamide 2 mg Tablet See Rx Instructions .ROUTE .COMPLEX PRN (Reason: Diarrhea) Rx Instructions: Take 2 tablets (4 mg) orally as needed at onset of diarrhea may repeat with each loose stool until symptoms controlled; do not exceed 8 mg per 24 hrs. atorvastatin 10 mg Tablet 10 mg PO QPM polyethylene glycol 3350 17 gram Powder In Packet 17 g PO DAILY PRN (Reason: constipation) 30 Days Qty: 30 0RF carvedilol 25 mg Tablet 12.5 mg PO BID@ Qty: 30 0RF Rx Instructions: must administer with a meal/food. Hold if systolic BP is below 90 or diastolic BP below 60. Discharge Orders: Discharge ED (Routine); Ordered 02/11/25 Ordered By: Andres Baptiste Referrals: Ahsan Gilliam MD [Primary Care Provider, Family Practice] Patient Instructions: Vomiting - Adult Print Language: Greenlandic Coding Level of Care Code ED Launch Check Out for Chg Fwsarath
[2025-02-11 17:27] VITALS: BP 204/96; PULSE 92; O2SAT 99
== END 2025-02-11 17:29 | disposition home or self-care (01) ==
PROVIDERS: Emergency Provider Emergency Medicine; PCP Family Medicine
DX: E11.22 Type 2 diabetes mellitus with diabetic chronic kidney disease (principal); I12.0 Hypertensive chronic kidney disease with stage 5 chronic kidney disease or end stage renal disease; N18.6 End stage renal disease; Z99.2 Dependence on renal dialysis; E78.2 Mixed hyperlipidemia; R11.10 Vomiting, unspecified; Z79.4 Long term (current) use of insulin; Z79.82 Long term (current) use of aspirin
CPT/HCPCS: 99283

== ENCOUNTER → 2025-03-18 09:46 | Outpatient (BNVA) | payer MEDICAID, SELFPAY | PROVIDERS: PCP Family Medicine; Visit Provider Podiatrist Foot & Ankle Surgery | DX: E11.42 Type 2 diabetes mellitus with diabetic polyneuropathy (principal); L60.3 Nail dystrophy; N18.6 End stage renal disease; G62.9 Polyneuropathy, unspecified; Z79.4 Long term (current) use of insulin | CPT/HCPCS: 11721; 99213 ==

== ENCOUNTER → 2025-03-26 10:55 | Outpatient (BNVA) | payer MEDICAID, SELFPAY | PROVIDERS: PCP Family Medicine; Visit Provider Podiatrist Foot & Ankle Surgery | DX: E11.621 Type 2 diabetes mellitus with foot ulcer (principal); L60.3 Nail dystrophy; E11.9 Type 2 diabetes mellitus without complications; G62.9 Polyneuropathy, unspecified; S91.319A Laceration without foreign body, unspecified foot, initial encounter; L97.521 Non-pressure chronic ulcer of other part of left foot limited to breakdown of skin; Z79.4 Long term (current) use of insulin | CPT/HCPCS: 99213 ==

== ENCOUNTER 2025-05-09 10:21 | Emergency (ER) | payer MEDICAID, SELFPAY ==
--- OUTSIDE RECORDS SUMMARY | 2023-11-09 10:37 | XMS_ITS | Continuity of Care Document ---
Author Organization [address] [place] [address] Address [address] [facility] [address] [place] [address] Phone Care Team Providers Care Client Executive Name Role Phone Maria Antonia GOODENMaico Unavailable Unavailab le Allergies, Adverse Reactions, Alerts Substance Reaction Status Criticality No Known Allergies Active No Inform ation Medications Medication Instructions Dosage Effective Dates (start - stop) Status Comments lurasidone 120 mg tablet - A ctive amlodipine 10 mg tablet - Ac tive aripiprazole 20 mg tablet - Active atorvastatin 10 mg tablet - Active benztropine 1 mg tablet - Ac tive carbamazepine 200 mg tablet - Active carvedilol 25 mg tablet - Ac tive clonidine HCl 0.2 mg tablet - Active escitalopram 20 mg tablet - Active fenofibrate 160 mg tablet - Active gabapentin 300 mg capsule - Active lisinopril 10 mg tablet - Ac tive pantoprazole 40 mg tablet,delayed release - Active Novofine Autocover 30 gauge x 1/3 needle - Active Novolog FlexPen U-100 Insulin aspart 100 unit/mL (3 mL) subcutaneous - Active Latuda 120 mg tablet - Activ e Lantus Solostar U-100 Insulin 100 unit/mL (3 mL) subcutaneous pen - Active Ventolin HFA 90 mcg/actuation aerosol inhaler - Active Vitamin D2 1,250 mcg (50,000 unit) capsule - Active Lantus U-100 Insulin 100 unit/mL subcutaneous solution - Active doxazosin 4 mg tablet - Acti ve gabapentin 600 mg tablet - A ctive hydralazine 50 mg tablet - A ctive Novolog U-100 Insulin aspart 100 unit/mL subcutaneous solution - Active clotrimazole 1 % topical solution - Active prochlorperazine maleate 10 mg tablet - Active Procedures Procedure Date Bite Registration Denture Impression EYE EXAM NEW PATIENT Compsve Oral Eval- New/Est Pat Complete Series Of Radiographic Images M Advance Directives Directive Yes / No Effective Date File Name No Information Encounters Encounter Description Practice Location Reason(s) For Visit Diagnoses Date Provider Providers Copied on Encounter [address] [place] [address], [id number], tel:[phone] [facility] No Information 4 Maria Antonia Nina. JACOB. [address] [place] [address], [id number], [place] tel:[phone] [facility] Complete loss of teeth, unspecified cause, unspecified class 3 JACOB Marsh II. Referring Provider: Thomas Zendejas. [address] [place] [address], [id number], [place] tel:[phone] [facility] Complete loss of teeth, unspecified cause, unspecified class 3 Nahid Vázquez [place]. Referring Provider: Thomas Zendejas. [address] [place] [address], [id number], tel:[phone] [facility] Diabetic eye exam (chief complaint) Type 2 diabetes mellitus without complicationsAg e-related nuclear cataract, bilateralCortic al age-related cataract, bilateralSquamo us blepharitis unspecified eye, unspecified eyelid 3 JACOB Dotson. Referring Provider: Thomas Zendejas. [address] [place] [address], [address] [facility] [address], [place], [place], [id number], tel:[phone] [facility] No Information 3 JACOB Dotson. [address] [place] [address], [address] [facility] [address], [place], [place], [id number], tel:[phone] [facility] Encounter for dental examination and cleaning without abnormal findings 3 [place] Leo. Referring Provider: Thomas Zendejas. Family History Family Member Type Diagnosis Age At Onset No Information Payers Payer name Insurance type Covered alliance party ID Authoriza ticarley(s) DDS Medicaid [facility] [id number] Social History Type Description Quantity Date Captured Comments Sex Male Smoking Status No Information Chief Complaint And Reason For Visit No Information Reason For Referral Reason For Referral No Information Plan Of Treatment Date Type Action Status Patient Education Learning About Dentures completed Patient Education Learning About Dentures completed History Of Present Illness Encounter Date Complaint History Of Prese nt Illness Diabetic eye exam The 52 year ol d male presents for evaluation of Diabetic eye exam in the right eye and left eye. The symptom is constant. The condition is moderate. Checking for ocular complications from DM Functional Status Date Functional Assessmen t No Information Instructions Date Instruction Additional Infor rosy Follow up - Return i n 12-15 months for dilated fundus exam. Impression/Plan - OU , mild, pt denies symptoms; Lid scrub done today with gauze, saline and hypochlorous spray. Pt tolerated procedure. 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 Related to Type 2 diabetes mellitus without complications Assessments Type Assessment Date No Information Patient Care Teams Name Effective Dates (start - stop) Status Members No Information
--- OUTSIDE RECORDS SUMMARY | 2025-05-09 10:26 | XMS_ITS | Encounter Summary ---
Author Organization [employer] [facility] Address [address] [facility] [address] [place] [address] Phone Care Team Providers Care Tool Sharpener Name Role Phone Ahsan Gilliam MD Primary Care Provider [phone] Encounter Details Date Type Department Care Team (Late st Contact Info) Description 06/22/2023 Orders Only [place], [facility] [address] [facility] [address] [place] [address] Stage 5 chronic kidney disease (HCC) Social History Tobacco Use Types Packs/Day Years Used Date Smoking Tobacco: Never Assessed Sex and Gender Information Value Date Recorded Sex Assigned at Not on file Legal Sex Male 1:45 PM EDT Gender Identity Not on file Sexual Orientation Not on file documented as of this encounter Plan of Treatment Not on file documented as of this encounter Visit Diagnoses Diagnosis Stage 5 chronic kidney disease (HCC) documented in this encounter Care Teams Tool Sharpener Relationship Specialty Start Date End Date Ahsan Gilliam MD [address] [facility] [address] [place] [address] PCP - General Family Medicine 06/22/23 documented as of this encounter
--- OUTSIDE RECORDS SUMMARY | 2025-05-09 10:26 | XMS_ITS | Clinical Summary ---
Author Organization [facility] Address [address] [place] [address] Phone Care Team Providers Care Comb Winder Name Role Phone Unavailable Primary Care Provider Unavailabl e Allergies No known active allergies Medications acetaminophen (TYLENOL) 325 mg tablet TAKE 2 TABLETS BY MOUTH EVERY 4 HOURS NEEDED Active albuterol sulfate HFA 90 mcg/actuation aerosol inhaler Take 2 Puffs by inhalation every 6 hours as needed. Active BD Single Use Swabs Regular Pads, Medicated APPLY ONE PAD FOUR TIMES DAILY BEFORE MEALS 03/04/20 24 Active amLODIPine (NORVASC) 10 mg tablet Take 10 mg by mouth daily. Active benztropine (COGENTIN) 1 mg tablet Take 1 mg by mouth 2 times daily. 03/31/20 24 Active atorvastatin (LIPITOR) 10 mg tablet take 1 tablet by mouth every day at bedtime Active carBAMazepine (TEGretol) 200 mg tablet TAKE 1 TABLET BY MOUTH EVERY MORNING, ONE at NOON and ONE EVERY EVENING 03/31/20 24 Active OneTouch Ultra Test Strip test three times daily 03/22/20 24 Active carvediloL (COREG) 25 mg tablet Take 25 mg by mouth 2 times daily. Active cloNIDine HCL (CATAPRES) 0.2 mg tablet Take 0.2 mg by mouth. 03/16/20 22 Active clotrimazole (LOTRIMIN) 1 % Solution Apply to affected area daily. Active docusate sodium (COLACE) 100 mg capsule Take 1 Capsule by mouth 2 times daily. 01/31/20 24 Active escitalopram oxalate (LEXAPRO) 10 mg tablet Take 20 mg by mouth daily. Active escitalopram oxalate (LEXAPRO) 20 mg tablet Take 20 mg by mouth daily. Active ARIPiprazole (ABILIFY) 15 mg tablet Take 15 mg by mouth daily. 03/31/20 24 Active famotidine (PEPCID) 20 mg tablet Take 1 Tablet by mouth 2 times daily. 03/04/20 24 Active ARIPiprazole (ABILIFY) 20 mg tablet Take 20 mg by mouth daily. Active hydrALAZINE (APRESOLINE) 25 mg tablet Take 1 Tablet by mouth every 6 hours. 03/21/20 24 Active gabapentin (NEURONTIN) 300 mg capsule take 1 capsule by mouth at bedtime Active gabapentin (NEURONTIN) 600 mg tablet Take 600 mg by mouth daily at bedtime. Active HYDROcodone-vanessa taminophen (NORCO) 7.5-325 mg Tablet Take 1 Tablet by mouth every 6 hours as needed for Pain. 01/31/20 24 Active insulin aspart U-100 (NovoLOG) 100 unit/mL pen syringe inject SUBCUTANEOUSLY FOUR TIMES DAILY PER sliding scale NEEDED with meals. max of 56 units EVERY DAY Active insulin glargine (LANTUS) 100 unit/mL pen syringe Inject 5 Units by subcutaneous injection. 09/27/20 Active milk of magnesia 400 mg/5 mL suspension take 20ml BY MOUTH TWICE DAILY NEEDED FOR constipation Active magnesium oxide (MAG-OX) 400 mg (241.3 mg magnesium) tablet Take 1 Tablet by mouth 3 times daily. 02/21/20 24 Active metoclopramide HCl (REGLAN) 10 mg tablet TAKE 1 TABLET BY MOUTH EVERY 8 HOURS NEEDED FOR 90 DAYS 02/21/20 Active Daily-Sean, with folic acid, 400 mcg Tablet tablet take 1 tablet by mouth every day as directed 03/21/20 24 Active Narcan 4 mg/actuation [place], Non-Aerosol CALL 911, USE 1 SPRAY IN ONE NOSTRIL. MAY REPEAT IN ALTERNATE NOSTRILS EVERY 3 MINUTES NEEDED IF NO OR MINIMAL RESPONSE. 01/14/20 24 Active aspirin (ECOTRIN EC) 325 mg Tablet, Delayed Release (E.C.) Take 1 Tablet by mouth daily. 03/11/20 24 Active fenofibrate (LOFIBRA) 160 mg Tablet Take 160 mg by mouth daily. Active isosorbide mononitrate (IMDUR) 60 mg Extended Release 24 hour tablet Take 1 Tablet by mouth daily. 06/21/20 24 Active Eucerin Cream apply topically EVERY DAY 03/11/20 Active clonazePAM (KlonoPIN) 0.5 mg Tablet Take 0.5 mg by mouth see administration instructions. Take 1 tablet by mouth daily before dialysis on Mon, Wed, Fri Active lisinopriL (PRINIVIL) 10 mg tablet Take 10 mg by mouth daily at bedtime. Active lurasidone (LATUDA) 120 mg Tablet tablet Take 60 mg by mouth 2 times daily. Active traZODone (DESYREL) 150 mg tablet Take 150 mg by mouth daily at bedtime. Active loperamide (Anti-Diarrheal , Loperamide,) 2 mg Tablet Take 2 mg by mouth 4 times daily as needed for Diarrhea/Loose Stools. Active HYDROcodone-vanessa taminophen (NORCO) 5-325 mg tablet Take 1 Tablet by mouth every 4 hours as needed for Pain, Moderate. Active HYDROcodone-vanessa taminophen (NORCO) 5-325 mg tabletIndicatio ns:CKD (chronic kidney disease) stage 5, GFR less than 15 ml/min (CMS/HCC) Take 1 Tablet by mouth every 4 hours as needed for Pain, Moderate. Max Daily Amount: 6 Tablets 20 Tablet 04/24/20 Active lisinopriL (PRINIVIL) 20 mg tablet Take 1 Tablet by mouth daily at bedtime. Active Active Problems No known active problems Encounters Date Type Department Care Team Description 03/24/2025 External Device Data [facility] ABSTRACTION Provider, Abstract from Last 3 Months Social History Tobacco Use Types Packs/Day Years Used Date Smoking Tobacco: Every Day Cigarettes Tobacco Cessation:Ready to Q uit: Not Asked; Counseling Given: Not Answered Sex and Gender Information Value Date Recorded Sex Assigned at Not on file Legal Sex Male 2:40 PM CDT Gender Identity Not on file Sexual Orientation Not on file Last Filed Vital Signs Vital Sign Reading Time Taken Comments Blood Pressure 145/70 06/17/2024 12:48 PM CDT Pulse 87 04/24/2024 2:15 PM CDT Temperature 36.5 C (97.7 F) 04/24/2024 12:12 PM CDT Respiratory Rate 19 04/24/2024 2:15 PM CDT Oxygen Saturation 98% 04/24/2024 2:15 PM CDT Inhaled Oxygen Concentration - - Weight 61.7 kg (136 lb) 04/24/2024 10:04 AM CDT Height 175.3 cm (5' 9 ) 04/24/2024 10:04 AM CDT Body Mass Index 20.08 04/24/2024 10:04 AM CDT Plan of Treatment Health Maintenance Due Date Last Done Comments DIABETES MICROALBUMIN ANNUAL SCREEN 1987 LDL CHOLESTEROL ANNUAL 1987 HEPATITIS B VACCINES (1 of 3 - 19+ 3-dose series) 1988 09/09/2014, 06/24/2014, 09/04/2013 COLORECTAL SCREENING 2014 Colorectal Cancer Screening 2014 FIT-DNA Q 3 years 2014 FIT/FOBT Q 1 year 2014 Flex Sig/CT Colonography Q 5 years 2014 DIABETES ANNUAL RETINAL EXAM 12/19/2018 12/19/2017 ZOSTER VACCINE (1 of 2) 2019 DIABETES ANNUAL FOOT EXAM 04/06/2023 04/06/2022 DIABETES HBA1C Q 6 MONTHS 12/02/20242023, 09/24/2022, 03/15/2022 INFLUENZA VACCINE (#1) 2025 , 07/21/2021, 07/26/2018, Additional history exists DTAP/TDAP/TD VACCINES (4 - T d or Tdap) 05/28/2025 05/28/2015, 09/04/2013, 10/01/2012 Medical Devices Implanted Type Area Supervisor Sample Device Identifier Shelf Expiration Date Model / Serial / Lot Clip Ligating Horizon Sm Ti [id number] - Csc - [id number] Implanted:Qty: 6 on 04/24/2024 by Tripp Cervantes MD at [facility] Clip Left: Arm [employer] 10/21/2028 [id number] / / [id number] Clip Ligating Horizon Med Ti [id number] - Csc - [id number] Implanted:Qty: 2 on 04/24/2024 by Tripp Cervantes MD at [facility] Clip Left: Arm [employer]LE[employer]- WECK [employer]URE SYS 10/15/2028 [id number] / / [id number] Insurance [place]ICAID [place] Advance Directives For more information, please contact: [phone] * Full Code (Latest Code Status on File) Date Activated Date Inactivated Comments 04/24/2024 9:15 AM 04/24/2024 5:21 PM
--- OUTSIDE RECORDS SUMMARY | 2025-05-09 10:26 | XMS_ITS | Clinical Summary ---
Author Organization [facility] Facility Address [address] [place] [id number] Care Team Providers Care Insulation Cupola Operator Name Role Phone Ahsan Gilliam MD Primary Care Provider [phone] Allergies No known active allergies Medications acetaminophen (TYLENOL) 325 MG tablet 2 tab(s) 02/17/20 20 Active aluminum & magnesium hydroxide-simet hicone (MYLANTA) 200-200-20 MG/5ML oral suspension Take 30 ml by oral route every 6 hours as needed for reflux 11/04/19 21 Active amLODIPine (NORVASC) 10 MG tablet 1 (one) time each day Active ARIPiprazole (ABILIFY) 20 MG tablet 1 (one) time each day Active aspirin 325 MG EC tablet Take 325 mg by mouth in the morning. 04/13/20 21 Active atorvastatin (LIPITOR) 10 MG tablet Take 10 mg by mouth at bed time 04/13/20 21 Active benztropine (COGENTIN) 1 MG tablet Take 1 mg by mouth in the morning and 1 mg in the evening. 03/13/20 13 Active Blood Glucose Calibration (OT ULTRA/FASTTK CNTRL SOLN) solution 1 each 10/21/19 21 Active carBAMazepine (TEGretol) 200 MG tablet 2 (two) times a day Active carvedilol (COREG) 25 MG tablet 2 (two) times a day Active cloNIDine (CATAPRES) 0.1 MG tablet Take 0.2 mg by mouth Active clotrimazole (LOTRIMIN) 1 % external solution Apply topically daily Active Dapagliflozin Propanediol (Farxiga) 10 MG tablet 1 (one) time each day 08/31/20 21 Active doxycycline (VIBRAMYCIN) 100 MG capsule 2 (two) times a day 12/11/19 21 Active escitalopram (LEXAPRO) 10 MG tablet Take 20 mg by mouth in the morning. Active fenofibrate (TRICOR) 145 MG tablet Take 145 mg by mouth in the morning. Active ferrous sulfate 325 (65 Fe) MG tablet Take 325 mg by mouth in the morning. 06/16/20 20 Active gabapentin (NEURONTIN) 800 MG tablet 2 (two) times a day 04/13/20 21 Active guaiFENesin (ROBITUSSIN) 100 MG/5ML syrup every 4 (four) hours 01/12/20 21 Active haloperidol (HALDOL) 2 MG tablet 2 tab(s) orally at bedtime 03/13/20 13 Active insulin aspart (NovoLOG) 100 UNIT/ML injection 15 units subcutaneously 3 times a day with meals 09/09/20 20 Active insulin glargine (Lantus SoloStar) 100 UNIT/ML injection INJECT 60 UNITS SUBCUTANEOUSLY AT BEDTIME 09/10/20 20 Active Insulin Pen Needle (TechLite Pen [place]) 31G X 5 MM misc USE TO INJECT 4 TIMES DAILY DIRECTED 08/01/20 21 Active Lancets (onetouch ultrasoft) lancets USE DIRECTED 4 TIMES DAILY. 08/11/20 21 Active magnesium hydroxide (MILK OF MAGNESIA) 400 MG/5ML suspension Take 30 mL by mouth Active metoprolol tartrate (LOPRESSOR) 100 MG tablet Take 100 mg by mouth in the morning and 100 mg in the evening. Active pantoprazole (PROTONIX) 40 MG EC tablet Take 40 mg by mouth in the morning. Active prochlorperazin e (COMPAZINE) 10 MG tablet Take 10 mg by mouth 01/21/20 21 Active urea (CARMOL) 20 % cream 1 (one) time each day Active lisinopril 2.5 MG tablet Take 2.5 mg by mouth 1 (one) time each day Active lurasidone (LATUDA) 40 MG tablet Take 4 tablets by mouth 1 (one) time each day in the evening Active doxazosin (Cardura) 4 MG tablet Take 1 tablet (4 mg total) by mouth 1 (one) time each day in the morning 30 tablet 11 12/27/19 22 Active Active Problems Problem Noted Date Diagnosed Date Chronic kidney disease, stage 4 (severe) 022 Type 2 diabetes mellitus wit h diabetic chronic kidney disease 11/22/2021 Persistent proteinuria 11/22/2021 Hypertensive chronic kidney disease, unspecified, with chronic kidney disease stage I through stage IV, or unspecified 11/22/2021 Anemia 11/22/2021 Disorder of lipid metabolism 11/22/2021 Hypomagnesemia 11/22/2021 Secondary hyperparathyroidism of renal origin Nicotine dependence, cigarettes, uncomplicated 0 11/22/2021 Encounters Date Type Department Care Team Description 05/06/2025 [facility], [facility] [address] [place] [phone] Ora Aceves MD 04/29/2025 Orders Only [facility], [facility] [address] [place] [address] Ora Aceves MD 04/22/2025 Orders Only [facility], [facility] [address] [place] [address] Ora Aceves MD 04/22/[address] [place] [address], [facility] [address] [place] [phone] Ora Aceves MD End stage renal disease; Dependence on renal dialysis 04/15/2025 Orders Only [facility], [facility] [address] [place] [address] Ora Aceves MD 04/13/[address] [place] [address], [facility] [address] [place] [address] Kiersten Matamoros NP End stage renal disease; Dependence on renal dialysis 04/10/2025 Orders Only [facility], [facility] [address] [place] [address] Ora Aceves MD 04/08/[address] [place] [address], [facility] [address] [place] [address] Erika Magdaleno NP End stage renal disease; Dependence on renal dialysis 04/01/2025 Orders Only [facility], [facility] [address] [place] [address] Ora Aceves MD 04/01/[address] [place] [address], [facility] [address] [place] [address] Erika Magdaleno NP End stage renal disease; Dependence on renal dialysis 03/25/2025 [facility], [facility] [address] [place] [address] Ora Aceves MD 03/23/[address] [place] [address], [facility] [address] [place] [address] Kiersten Matamoros NP End stage renal disease; Dependence on renal dialysis 03/18/2025 [facility], [facility] [address] [place] [phone] Ora Aceves MD 03/18/[address] [place] [address], [facility] [address] [place] [address] Ora Aceves MD End stage renal disease; Dependence on renal dialysis 03/11/2025 [facility], [facility] [address] [place] [address] Ora Aceves MD 03/09/[address] [place], [place] [address]rology [facility], [facility] [address] [place] [address] Kiersten Matamoros NP End stage renal disease; Dependence on renal dialysis 03/04/2025 Orders Only [facility], [facility] [address] [place] [address] Ora Aceves MD 03/02/[address] [place], [place] [address]rology [facility], [facility] [address] [place] [address] Kiersten Matamoros NP End stage renal disease; Dependence on renal dialysis 02/25/[address] [place] [address] [facility], [facility] [address] [place] [address] Ora Aceves MD End stage renal disease; Dependence on renal dialysis 02/18/2025 [facility], [facility] [address] [place] [address] Ora Aceves MD 02/16/2025 [facility], [facility] [address] [place] [address] Ora Aceves MD 02/16/[address] [place], [place] [address]rology [facility], [facility] [address] [place] [address] Erika Magdaleno NP End stage renal disease; Dependence on renal dialysis 02/11/2025 Orders Only [facility], [facility] [address] [place] [address] Ora Aceves MD 02/09/2025 Orders Only [facility], [facility] [address] [place] [address] Ora Aceves MD 02/09/[address] [place], [place] [address]rology [facility], [facility] [address] [place] [address] Kiersten Matamoros NP End stage renal disease; Dependence on renal dialysis from Last 3 Months Immunizations Immunization Administration Dates Next Due Hepatitis A 09/09/2014,09/04/2013 Hepatitis B 09/09/2014,09/04/2013 Influenza Split 08/11/2013 Influenza Split Preservative Free ID 09/09/2014 Influenza, Quadrivalent, Pre servative Free 07/21/2021,07/26/2018,06/16/2015 Influenza, Quadrivalent, Wit h Preservative 08/11/2013 Moderna SARS-COV-2 12/17/2020,11/05/2020 PPD Test 07/21/2021, 0,04/22/2019,11/06 Pneumococcal Polysaccharide 03/15/2015 Tdap 05/28/2015,09/04/2013,10/01/2012 Family History Medical History Relation Comments History of Dialysis Status Neg Hx History of Kidney Transplant Status Neg Hx Kidney disease Neg Hx Social History Tobacco Use Types Packs/Day Years Used Date Smoking Tobacco: Every Day Cigarettes Sex and Gender Information Value Date Recorded Sex Assigned at Not on file Legal Sex Male 1:45 PM EDT Gender Identity Not on file Sexual Orientation Not on file Last Filed Vital Signs Vital Sign Reading Time Taken Comments Blood Pressure 147/57 08/09/2022 1:53 PM SPRING ASSEMBLER SUPERVISOR Pulse 88 04/27/2021 12:00 AM CDT Temperature 36.2 C (97.1 F) 12/13/2020 12:00 AM CDT Respiratory Rate - - Oxygen Saturation - - Inhaled Oxygen Concentration - - Weight 81.6 kg (180 lb) 08/09/2022 1:53 PM SPRING ASSEMBLER SUPERVISOR Height 175.3 cm (5' 9 ) 08/09/2022 1:53 PM SPRING ASSEMBLER SUPERVISOR Body Mass Index 26.58 08/09/2022 1:53 PM SPRING ASSEMBLER SUPERVISOR Plan of Treatment Health Maintenance Due Date Last Done Comments Hepatitis B Vaccine (1 of 5 - Risk Dialysis 4-dose series) 1989 09/09/2014, 06/24/2014, 09/04/2013 Pneumococcal Vaccine: 50+ Ye ars (2 of 2 - PCV) 03/15/2016 03/15/2015 Colorectal Cancer Screening: Annual FOBT 2018 Colorectal Cancer Screening: Colonoscopy 2018 Colorectal Cancer Screening: Sigmoidoscopy 2018 Diabetes: Ophthalmology Exam 07/03/2023 Diabetes: Pedal Pulse Checked 07/03/2023 Diabetes: Sensory Foot Exam 07/03/2023 Diabetes: Visual Foot Exam 07/03/2023 Influenza Vaccine (#1) 2025 3, 07/21/2021, 07/26/2018, Additional history exists Diabetes: Hemoglobin A1C 06/04/2025 025, 12/03/2024, 09/03/2024, Additional history exists Pneumococcal Vaccine: Peds ( 0 to 5 Years) and At-Risk Patients (6 to 49 Years) Discontinued 03/15/2015 Procedures Procedure Name Priority Date/Time Associated Diagnosis Comments HD KINETICS Routine 05/06/2025 POST CHEMISTRY Routine 05/06/2025 CHEMISTRY Routine 05/06/2025 CHEMISTRY Routine 05/06/2025 HEMATOLOGY Routine 05/06/2025 HEMATOLOGY Routine 04/29/2025 HEMATOLOGY Routine 04/22/2025 HEMATOLOGY Routine 04/15/2025 HEMATOLOGY Routine 04/10/2025 [facility] RESULTS Routine 04/01/2025 HD KINETICS Routine 04/01/2025 POST CHEMISTRY Routine 04/01/2025 HEMATOLOGY Routine 04/01/2025 CHEMISTRY Routine 04/01/2025 HEMATOLOGY Routine 03/25/2025 HEMATOLOGY Routine 03/18/2025 HEMATOLOGY Routine 03/11/2025 [facility] RESULTS Routine 03/04/2025 HD KINETICS Routine 03/04/2025 POST CHEMISTRY Routine 03/04/2025 CHEMISTRY Routine 03/04/2025 CHEMISTRY Routine 03/04/2025 SPECIAL CHEMISTRY Routine 03/04/2025 HEMATOLOGY Routine 03/04/2025 HEMATOLOGY Routine 02/18/2025 [facility] RESULTS Routine 02/16/2025 HD KINETICS Routine 02/16/2025 POST CHEMISTRY Routine 02/16/2025 CHEMISTRY Routine 02/16/2025 HEMATOLOGY Routine 02/11/2025 [facility] RESULTS Routine 02/09/2025 HD KINETICS Routine 02/09/2025 POST CHEMISTRY Routine 02/09/2025 CHEMISTRY Routine 02/09/2025 HEMATOLOGY Routine 02/09/2025 from Last 3 Months Results * HD KINETICS (05/06/2025) Only the most recent of5 resultswithin the time period is included. % Urea Reduction 74 65 - 80 % [facility] 05/06/2025 05/08/2025 12: 11 PM CDT Narrative Resulting Agency Comment Specimen source: Plasma us Ora Aceves MD LAB BLOOD ORDERABLES Final Re sult [facility] See order comments or contact performing lab Unknown, [place] * POST CHEMISTRY (05/06/2025) Only the most recent of5 resultswithin the time period is included. BUN Post Dialysis 10 6 - 19 mg/dL [facility] 05/06/2025 05/08/2025 12: 11 PM CDT Narrative [facility] - 05/09/2025 Unless otherwise specified, test(s) performed at: [facility], [address] [place] [address] ABSTRACTOR: Elbert Salinas M.D. For any questions, please call customer service at FREQUENCY:MONTHLY Resulting Agency Comment Specimen source: Plasma us Ora Aceves MD LAB BLOOD ORDERABLES Final Re sult [facility] See order comments or contact performing lab Unknown, [place] * (ABNORMAL) HEMATOLOGY (05/06/2025) Only the most recent of13 resultswithin the time period is included. Neutrophils 61.4 40.0 - 75.0 % [facility] Lymphocytes Relative 24.5 19.0 - 48.0 % [facility] Monocytes 7.3 3.0 - 10.0 % [facility] Eosinophils Relative 1.0 0.0 - 7.0 % [facility] Basophils Relative 1.5 0.0 - 1.5 % [facility] IZZY 4.2(H) 0.0 - 4.0 % [facility] WBC 4.20(L) 4.80 - 10.80 1000/mcL [facility] RBC 3.72(L) 4.70 - 6.10 mill/mcL [facility] Hematocrit 36.1(L) 42.0 - 52.0 % [facility] MCV 97 80 - 100 fl [facility] MCH 30.3 27.0 - 31.0 pg [facility] MCHC 31.2 30.0 - 36.0 g/dL [facility] RDW 14.4 11.5 - 14.5 % [facility] Hemoglobin 11.3(L) 14.0 - 18.0 g/dL [facility] Hemoglobin x 3 33.9(L) 42.0 - 54.0 % [facility] Platelets 186 130 - 400 1000/mcL [facility] 05/06/2025 05/07/2025 1:0 9 PM CDT Narrative [facility] - 05/07/2025 Unless otherwise specified, test(s) performed at: [facility], [address] [place] [address] ABSTRACTOR: Elbert Salinas M.D. For any questions, please call customer service at FREQUENCY:MONTHLY Resulting Agency Comment Specimen source: Blood us Ora Aceves MD LAB BLOOD ORDERABLES Final Re sult [facility] See order comments or contact performing lab Unknown, [place] * (ABNORMAL) [facility] Chemistry (05/06/2025) Only the most recent of7 resultswithin the time period is included. BUN 38(H) 6 - 19 mg/dL [facility] Creatinine 2.98(H) 0.60 - 1.30 mg/dL [facility] Comment: Custom Exception BUN/Creatinine Ratio 12.8 10.0 - 20.0 [facility] Sodium 128(L) 136 - 145 mEq/L [facility] Potassium 5.0 3.5 - 5.1 mEq/L [facility] Chloride 95(L) 96 - 108 mEq/L [facility] Bicarbonate (CO2) 26 22 - 29 mEq/L [facility] Calcium 8.6 8.4 - 10.2 mg/dL [facility] Corrected Calcium 9.2 8.4 - 10.2 mg/dL [facility] Comment: Corrected Calcium is not equivalent to measured Ionized Calcium. Phosphorus 3.7 2.6 - 4.5 mg/dL [facility] Calcium Phosphorus Product 32 0 - 54 [facility] Calcium Phosporus Product, Cor 34 0 - 54 [facility] Total Protein 6.0 6.0 - 8.5 g/dL [facility] Albumin 3.2(L) 3.5 - 5.2 g/dL [facility] Globulin, Total 2.8 2.0 - 4.0 g/dL [facility] A/G Ratio 1.1 1.0 - 2.0 [facility] Glucose 123(H) 70 - 100 mg/dL [facility] Iron 70 45 - 160 mcg/dL [facility] UIBC 208 155 - 355 mcg/dL [facility] TIBC 278 185 - 515 mcg/dL [facility] Iron Saturation (TSat) 25 20 - 55 % [facility] 05/06/2025 05/07/2025 12: 28 PM CDT Narrative [facility] - 05/07/2025 Unless otherwise specified, test(s) performed at: [facility], [address] [place] [address] ABSTRACTOR: Elbert Salinas M.D. For any questions, please call customer service at FREQUENCY:MONTHLY Resulting Agency Comment Specimen source: Serum Ora Aceves MD LAB BLOOD ORDERABLES Final Re sult [facility] See order comments or contact performing lab Unknown, [place] * [facility] Results (04/01/2025) Only the most recent of4 resultswithin the time period is included. eKt/V Gotch 1.22 Know[facility]g e Center spKt/V (Daugirdas II) 1.46 Knowledge Center spKt/V [facility] nPCR_HD 1.02 Knowledge Center eNPCR 0.93 Knowledge Center PCR 61.89 Knowledge Center eKt/V ([place]) 1.24 Knowledge Center eKdrt/V 1.22 Knowledge Center WSTDKT/V 2.4 Knowledge Center 04/01/2025 04/01/2025 [facility] Ordering Provider LAB BLOOD ORDERABLES Final Result Performing Organization Address City/[facility]/ZIP Co de Phone Number [facility] Center Contact Performing lab Unknown, [place] * (ABNORMAL) SPECIAL CHEMISTRY (03/04/2025) Pathologist [facility] Hemoglobin A1C 4.5(L) 4.8 - 5.9 % [facility] 03/04/2025 03/05/2025 1:0 8 PM CDT Narrative [facility] - 03/05/2025 Unless otherwise specified, test(s) performed at: [facility], [address] [place], [place] [id number] ABSTRACTOR: Elbert Salinas M.D. For any questions, please call customer service at FREQUENCY:MONTHLY Resulting Agency Comment Specimen source: Blood Ora Aceves MD LAB BLOOD BANK TEST ORDERABLE S Final Result [facility] See order comments or contact performing lab Unknown, [place] from Last 3 Months Insurance Medicaid [place] ([facility]) [place]) Care Teams Insulation Cupola Operator Relationship Specialty Start Date End Date Ahsan Gilliam MD [address] [place] [address] PCP - General Family Medicine 06/22/23
--- OUTSIDE RECORDS SUMMARY | 2025-05-09 10:26 | XMS_ITS | Encounter Summary ---
Author Organization [facility] Address [address] [place] [address] Phone Care Team Providers Care Cake Former Name Role Phone Ahsan Gilliam MD Primary Care Provider [phone] Encounter Details Date Type Department Care Team (Late st Contact Info) Description 05/06/2025 Orders Only [facility] [address] [place] [address] Ora Aceves MD [address] [place] [address] Social History Tobacco Use Types Packs/Day Years Used Date Smoking Tobacco: Every Day Cigarettes Sex and Gender Information Value Date Recorded Sex Assigned at Not on file Legal Sex Male 1:45 PM EDT Gender Identity Not on file Sexual Orientation Not on file documented as of this encounter Plan of Treatment Not on file documented as of this encounter Procedures Procedure Name Priority Date/Time Associated Diagnosis Comments HD KINETICS Routine 05/06/2025 POST CHEMISTRY Routine 05/06/2025 HEMATOLOGY Routine 05/06/2025 CHEMISTRY Routine 05/06/2025 CHEMISTRY Routine 05/06/2025 documented in this encounter Results * HD KINETICS (05/06/2025) % Urea Reduction 74 65 - 80 % [facility] 05/06/2025 05/08/2025 12: 11 PM CDT Narrative Resulting Agency Comment Specimen source: Plasma us Ora Aceves MD LAB BLOOD ORDERABLES Final Re sult Performing Organization Address [facility]/ZIP Co de Phone Number [facility] See order comments or contact performing lab Unknown, [place] * POST CHEMISTRY (05/06/2025) BUN Post Dialysis 10 6 - 19 mg/dL [facility] 05/06/2025 05/08/2025 12: 11 PM CDT Narrative [facility] - 05/09/2025 Unless otherwise specified, test(s) performed at: [facility], [address] [place] [address] PATIENT SAFETY OFFICER: Elbert Salinas M.D. For any questions, please call customer service at FREQUENCY:MONTHLY Resulting Agency Comment Specimen source: Plasma us Ora Aceves MD LAB BLOOD ORDERABLES Final Re sult Performing Organization Address [facility]/ZIP Co de Phone Number [facility] See order comments or contact performing lab Unknown, [place] * (ABNORMAL) [facility] Chemistry (05/06/2025) BUN 38(H) 6 - 19 mg/dL [facility] [...] 05/06/2025 05/07/2025 12: 28 PM CDT Narrative [facility] - 05/07/2025 Unless otherwise specified, test(s) performed at: [facility], [address] [place], [place] [id number] PATIENT SAFETY OFFICER: Elbert Salinas M.D. For any questions, please call customer service at FREQUENCY:MONTHLY Resulting Agency Comment Specimen source: Serum Ora Aceves MD LAB BLOOD ORDERABLES Final Re sult Performing Organization Address City/[facility]/ZIP Co de Phone Number [facility] See order comments or contact performing lab Unknown, [place] * (ABNORMAL) [facility] Chemistry (05/06/2025) PTH 333(H) 16 - 80 pg/mL [facility] 05/06/2025 05/07/2025 2:0 6 PM CDT Narrative [facility] - 05/07/2025 Unless otherwise specified, test(s) performed at: [facility], [address] [place] [id number] PATIENT SAFETY OFFICER: Elbert Salinas M.D. For any questions, please call customer service at FREQUENCY:MONTHLY Resulting Agency Comment Specimen source: Plasma us Ora Aceves MD LAB BLOOD ORDERABLES Final Re sult [facility] See order comments or contact performing lab Unknown, [place] * (ABNORMAL) HEMATOLOGY (05/06/2025) Neutrophils 61.4 40.0 - 75.0 % [facility] [...] 05/07/2025 Unless otherwise specified, test(s) performed at: [facility], [address] [place] [address] PATIENT SAFETY OFFICER: Elbert Salinas M.D. For any questions, please call customer service at FREQUENCY:MONTHLY Resulting Agency Comment Specimen source: Blood us Ora Aceves MD LAB BLOOD ORDERABLES Final Re sult [facility] [employer] See order comments or contact performing lab Unknown, [place] documented in this encounter Visit Diagnoses Not on filedocumented in this encounter Care Teams Cake Former Relationship Specialty Start Date End Date Ahsan Gilliam MD [address] [address] PCP - General Family Medicine 06/22/23 documented as of this encounter
[2025-05-09 10:37] VITALS: BP 139/74; PULSE 84; RESP 18; TEMP 36.6; O2SAT 98
--- NOTE | 2025-05-09 10:37 | ED_ITS ---
HPI - Abdominal Pain 2 General: Chief Complaint: Abdominal Pain Stated Complaint: FEVER AND GROIN PAIN Time Seen by Provider: 05/09/25 10:36 History of Present Illness: 54-year-old man with a history of end-st age renal disease on dialysis, hypertension, hyperlipidemia, diabetes, physical and mental disability who resides in a fdc with caregivers who presents to the emergency room with concerns for groin pain and possible fevers. Concerned that he might have a UTI. Related Data Home Medications ?Medication ?Instructions ?Recorded ?Confirmed amlodipine 10 mg tablet 10 mg PO DAILY@03/30/23 0 05/09/25 benztropine 1 mg tablet 1 mg PO BID@03/30/23 0 05/09/25 multivitamin with folic acid 400 1 tab PO DAILY@05/09/25 mcg tablet (Daily-Sean (with folic acid)) aripiprazole 15 mg tablet 15 mg PO QPM 12/07/23 aspirin 325 mg tablet,delayed 325 mg PO DAILY 02/15/24 05/09/25 release fenofibrate 160 mg tablet 160 mg PO DAILY 02/15/2406/25 acetaminophen 325 mg tablet 650 mg PO QID PRN Pain 02/2105/09/25 (Tylenol) clonazepam 0.5 mg tablet See Rx Instructions .Route . COMPLEX 09/04/24 05/09/25 famotidine 20 mg tablet 20 mg PO BID 09/04/24 lisinopril 20 mg tablet 20 mg PO BEDTIME 09/04/24 loperamide 2 mg tablet See Rx Instructions .Route 1 11/05/23 05/09/25 .COMPLEX PRN Diarrhea isosorbide mononitrate 30 mg 60 mg PO DAILY 12/07/24 0 05/09/25 tablet,extended release 24 hr Held on 01/29/25. Instructions: Resume on 02/02/25. atorvastatin 10 mg tablet 10 mg PO QPM 01/23/25 carbamazepine 200 mg tablet 200 mg PO BID 04/28/2506/25 trazodone 100 mg tablet 250 mg PO QPM 04/28/2505/09 Previous Rx's ?Medication ?Instructions ?Recorded carvedilol 25 mg tablet 12.5 mg (1/2 x 25 mg) PO BID @09,21 01/29/25 #30 tabs ondansetron 4 mg disintegrating 4 mg PO Q6H PRN nausea and 02/11/25 tablet vomiting #10 tabs mupirocin 2 % topical ointment 1 applic topical BID #1 5 grams 03/26/25 Wheelchair pad #1 ea 04/28/25 gabapentin 300 mg capsule 300 mg PO BID #60 caps 04/28 lurasidone 60 mg tablet 60 mg PO BID #60 tabs wheelchair restraints #1 ea 04/28/25 cefdinir 300 mg capsule 300 mg PO BID 7 days #14 cap s 05/09/25 Allergies Allergy/AdvReac Type Severity Reaction Status Date / Time No Known Allergies Allergy Verified 04/28/25 10:54 Review of Systems 2 General: Reports: 10 or more systems reviewed and unremarkable except in HPI and below PFSH ED 2 PFSH: Medical History (Updated 05/09/25 @ 11:46 by Estephanie Molina MD) Malignant hypertension ESRD (end stage renal disease) Hyperlipemia, mixed Acute renal failure Acute kidney injury superimposed on CKD Acute hyponatremia Hyponatremia Anemia Hypervolemia Tobacco abuse Diabetes Social History Smoking and tobacco/nicotine status: current every day tobacco/nicotine user Physical Exam 2 Narrative: EXAM NARRATIVE: General: Alert, no acute distress. Cachectic. Skin: Warm, dry. Head: Normocephalic, atraumatic. Neck: Supple, trachea midline. Eye: Extraocular movements are intact. Ears, nose, mouth and throat: mucosa moist. Cardiovascular: Regular, Normal peripheral perfusion. Respiratory: Lungs are clear to auscultation, respirations are non-labored, breath sounds are equal, Symmetrical chest wall expansion. Gastrointestinal: Soft, Nontender, Non distended Musculoskeletal: Normal ROM, no deformity. Neurological: Patient is alert and follows some commands. He appears to be at or near his baseline according to caregivers. Psychiatric: at baseline Course 2 Vital Signs: Vital signs: Vital Signs Temperature 97.9 F 05/09/25 10:37 Pulse Rate 84 05/09/25 10:37 Respiratory Rate 18 05/09/25 10:37 Blood Pressure 139/74 05/09/25 10:37 Pulse Oximetry 98 05/09/25 10:37 Oxygen Delivery Me thod Room Air 05/09/25 10:37 MDM - Abdominal Pain Medical Decision Making Medical decision making: Differential diagnosis including but not limited to and based on the above HPI, review of systems and physical exam: Differential diagnosis for patient with dysuria / lower abdominal pain: Ureterolithiasis. Urinary tract infection. Cystitis. With the possibility of sepsis, pyelonephritis and renal failure. Orders placed to evaluate differential diagnosis based on the above differential, HPI and physical exam Lab Review: Laboratory results were reviewed and interpreted by myself the emergency room physician. No leukocytosis. No anemia. BUN/creatinine are 18 and 2.1 which would be expected in the dialysis patient. Potassium is normal at 4.2. Urinalysis does show signs of infection with 21-50 whites and 4+ bacteria with 2+ leukocyte esterase. I reviewed the patient's medical record. 54-year-old man with a history of end-stage renal disease on dialysis, hypertension, hyperlipidemia, diabetes, physical and mental disability Reexamination: Patient remained stable. No increased work of breathing. No altered mental status. No focal motor deficits. Assessment and plan: Urinary tract infection ? IM Rocephin in the emergency room. - Discharged home - Discussed plan with patient. Answered any questions. - Evaluation and treatment of this problem were appropriate in the emergency setting. Lab Data 05/09/25 10:45 05/09/25 10:50 Labs/Radiology: Laboratory Results WBC 4.81 10^3/uL (3.29-11.43) 05/09/25 10:45 RBC 3.61 10^6/uL (3.85-5.65) L 05/09/25 10:45 Hgb 10.90 g/dL (11.27-16.99) L 05/09/25 10:45 Hct 34.0 % (37-53) L 05/09/25 10:45 MCV 94.2 fl (82-101) 05/09/25 10:45 MCH 30.2 pg (27-33) 05/09/25 10:45 MCHC 32.1 g/dL (30-55) 05/09/25 10:45 RDW 15.3 % (12.1-15.1) H 05/09/25 10:45 Plt Count 178 10^3/cmm (157-399) 05/09/25 10:45 MPV 10.1 fL (7.4-10.4) 05/09/25 10:45 Neut % (Auto) 70.1 % 05/09/25 10:45 Lymph % (Auto) 20.8 % 05/09/25 10:45 [place] % (Auto) 7.1 % 05/09/25 10:45 Eos % (Auto) 1.2 % 05/09/25 10:45 Baso % (Auto) 0.6 % 05/09/25 10:45 Neut # (Auto) 3.37 10^3/uL (1.8-7.7) 05/09/25 10:45 Lymph # (Auto) 1.0 10^3/uL (0.8-4.8) 05/09/25 10:45 [place] # (Auto) 0.3 10^3/uL (0.2-0.9) 05/09/25 10:45 Eos # (Auto) 0.1 10^3/uL (0.0-0.8) 05/09/25 10:45 Baso # (Auto) 0.0 10^3/uL (0.0-0.1) 05/09/25 10:45 Nucleated RBC % (auto) 0 % 05/09/25 10:45 Nucleated RBCs # 0.0 /100WBC 05/09/25 10:45 Sodium 133 mmol/L (136-145) L 05/09/25 10:50 Potassium 4.2 mmol/L (3.5-5.1) 05/09/25 10:50 Chloride 99 mmol/L (98-107) 05/09/25 10:50 Carbon Dioxide 24 mmol/L (22-29) 05/09/25 10:50 Anion Gap 14.2 (5-19) 05/09/25 10:50 BUN 18 mg/dL (6-20) 05/09/25 10:50 Creatinine 2.1 mg/dL (0.7-1.2) H 05/09/25 10:50 GFR Calculation 39.9 mL/min (90-130) L 05/09/25 10:50 Glucose 169 mg/dL (65-115) H 05/09/25 10:50 Calculated Osmolality 282 mOsm/kg (285-295) L 05/09/25 10:50 Lactic Acid 1.5 mmol/L (0.5-2.2) 05/09/25 10:50 Calcium 8.7 mg/dL (8.5-10.5) 05/09/25 10:50 Total Bilirubin 0.4 mg/dL (0.15-1.2) 05/09/25 10:50 AST 21 U/L (0-40) 05/09/25 10:50 ALT 9 U/L (0-41) 05/09/25 10:50 Alkaline Phosphatase 72 U/L (40-130) 05/09/25 10:50 Total Protein 6.2 g/dL (6.6-8.7) L 05/09/25 10:50 Albumin 3.2 g/dL (3.5-5.2) L 05/09/25 10:50 Globulin 3.0 g/dL (1.3-4.6) 05/09/25 10:50 Urine Color Yellow (Yellow) 05/09/25 10:57 Urine Appearance Cloudy (CLEAR) A 05/09/25 10:57 Urine pH 8.0 (5-7) A 05/09/25 10:57 Ur Specific [place] 1.007 (1.005-1.030) 05/09/25 10:57 Urine Protein 3+ (Negative) A 05/09/25 10:57 Urine Glucose (UA) Negative (Normal) 05/09/25 10:57 Urine Ketones Negative (Negative) 05/09/25 10:57 Urine Blood Trace (Negative) A 05/09/25 10:57 Urine Nitrate Negative (Negative) 05/09/25 10:57 Urine Bilirubin Negative (Negative) 05/09/25 10:57 Urine Urobilinogen 1.0 mg/dL (Negative) 05/09/25 10:57 Ur Leukocyte Esterase 2+ (Negative) A 05/09/25 10:57 Urine RBC 0-2 /hpf (0-2) 05/09/25 10:57 Urine WBC 21-50 /hpf (0-5) H 05/09/25 10:57 Ur Squamous Epith Cells 0-5 /hpf (0-5) 05/09/25 10:57 Amorphous Sediment Not Reportable 05/09/25 10:57 Urine Bacteria 4+ /hpf (NONE) H 05/09/25 10:57 Hyaline Casts 0.40 /lpf 05/09/25 10:57 No radiology studies performed this visit Discharge Plan Discharge Patient Disposition: Home Clinical Impression: Urinary tract infection Condition: Stable Prescriptions: New cefdinir 300 mg capsule 300 mg PO BID 7 Days Qty: 14 0RF No Action mupirocin 2 % ointment 1 applic topical BID Qty: 15 0RF Rx Instructions: Apply to affected area (DME) Wheelchair pad See Rx Instructions .Route .MEDSUPPLY Qty: 1 0RF Rx Instructions: As directed (DME) wheelchair restraints See Rx Instructions .Route .MEDSUPPLY Qty: 1 0RF Rx Instructions: Risk of falls out of wheelchair with prior events. Needs restraints for safety. gabapentin 300 mg capsule 300 mg PO BID Qty: 60 5RF trazodone 100 mg tablet 250 mg PO QPM lurasidone 60 mg tablet 60 mg PO BID Qty: 60 5RF Rx Instructions: must administer with food (at least 350 calories) carbamazepine 200 mg tablet 200 mg PO BID amlodipine 10 mg Tablet 10 mg PO DAILY@09 benztropine 1 mg Tablet 1 mg PO BID@ multivitamin with folic acid [Daily-Sean (with folic acid)] 400 mcg tablet 1 tab PO DAILY@09 isosorbide mononitrate 30 mg Tablet Extended Release 24 Hr 60 mg PO DAILY aripiprazole 15 mg tablet 15 mg PO QPM aspirin 325 mg tablet,delayed release (DR/EC) 325 mg PO DAILY fenofibrate 160 mg tablet 160 mg PO DAILY famotidine 20 mg tablet 20 mg PO BID acetaminophen [Tylenol] 325 mg Tablet 650 mg PO QID PRN (Reason: Pain) lisinopril 20 mg tablet 20 mg PO BEDTIME clonazepam 0.5 mg tablet See Rx Instructions .ROUTE .COMPLEX Rx Instructions: TAKE 1 TABLET BY MOUTH DAILY before dialysis on Sunday, Sunday, and Sunday for anxiety. loperamide 2 mg Tablet See Rx Instructions .ROUTE .COMPLEX PRN (Reason: Diarrhea) Rx Instructions: Take 2 tablets (4 mg) orally as needed at onset of diarrhea may repeat with each loose stool until symptoms controlled; do not exceed 8 mg per 24 hrs. atorvastatin 10 mg Tablet 10 mg PO QPM carvedilol 25 mg Tablet 12.5 mg PO BID@ Qty: 30 0RF Rx Instructions: must administer with a meal/food. Hold if systolic BP is below 90 or diastolic BP below 60. ondansetron 4 mg tablet,disintegrating 4 mg PO Q6H PRN (Reason: nausea and vomiting) Qty: 10 0RF Discharge Orders: Discharge ED (Routine); Ordered 05/09/25 Ordered By: Estephanie Molina Referrals: Valente Harding DO [Primary Care Provider, Family Practice] Discharge Diet: Usual diet Discharge Activity: Increase activity as tolerated Patient Instructions: Urinary Tract Infection in Men (ED), Opioid Safety, Pain Management, Patient Portal & Kaye Instructions Activity Restrictions/Additional Instructions: Thank you for choosing [facility] for your healthcare needs today. You have been screened and evaluated and felt safe for discharge. Health conditions do change or evolve sometimes and as such it is important that you follow up with your Primary Doctor to be re checked, 3-5 days is a general good time frame for follow up. You are always welcome to return to the ED for re assessment if your symptoms are worsening or you have new concerns Print Language: Wolof Coding Level of Care Code ED Java Software Architect for Maria R Garrison
[2025-05-09 11:00] LABS: Hematocrit 34.0 % (37-53); Hemoglobin 10.90 g/dL (11.27-16.99); Mean Corpuscular HGB Conc 32.1 g/dL (30-55); Mean Corpuscular Hemoglobin 30.2 pg (27-33); Mean Corpuscular Volume 94.2 fl (82-101); Nucleated Red Blood Cells % 0 %; Platelet Count 178 10^3/cmm (157-399); Red Blood Count 3.61 10^6/uL (3.85-5.65); White Blood Count 4.81 10^3/uL (3.29-11.43)
[2025-05-09 11:10] LABS: Glucose Urine UA Negative (Normal); Nitrate Urine Negative (Negative); Specific Gravity, Urine 1.007 (1.005-1.030)
[2025-05-09 11:12] LABS: Universal Test for UA Present (0)
--- NOTE | 2025-05-09 11:13 | PC.PHAR ---
Pt is from [facility] Home-caregiver will have current medication list.
[2025-05-09 11:18] LABS: Alanine Aminotransferase 9 U/L (0-41); Albumin Level 3.2 g/dL (3.5-5.2); Alkaline Phosphatase 72 U/L (40-130); Anion Gap 14.2 (5-19); Aspartate Amino Transferase 21 U/L (0-40); Blood Urea Nitrogen 18 mg/dL (6-20); Calcium 8.7 mg/dL (8.5-10.5); Carbon Dioxide 24 mmol/L (22-29); Chloride 99 mmol/L (98-107); Globulin 3.0 g/dL (1.3-4.6); Glucose 169 mg/dL (65-115); Osmolality Calculated 282 mOsm/kg (285-295); Potassium 4.2 mmol/L (3.5-5.1); Sodium 133 mmol/L (136-145); Total Protein 6.2 g/dL (6.6-8.7)
[2025-05-09 11:19] LABS: Lactic Sepsis W/Reflex 1.5 mmol/L (0.5-2.2)
[2025-05-09 11:19] LABS: UA Slide Review UA Slide Review Perf
[2025-05-09] MEDS: cefTRIAXone 1,000 MG in water for injection-sterile 2.1 ML 2 MG IM (11:58)
[2025-05-09 12:07] VITALS: PULSE 74; O2SAT 96
== END 2025-05-09 12:08 | disposition home or self-care (01) ==
PROVIDERS: Emergency Provider Emergency Medicine; PCP Family Medicine
DX: N39.0 Urinary tract infection, site not specified (principal); Z79.82 Long term (current) use of aspirin; Z72.0 Tobacco use; E78.2 Mixed hyperlipidemia; E11.22 Type 2 diabetes mellitus with diabetic chronic kidney disease; I12.0 Hypertensive chronic kidney disease with stage 5 chronic kidney disease or end stage renal disease; N18.6 End stage renal disease; Z99.2 Dependence on renal dialysis
CPT/HCPCS: 36415; 80053; 81001; 83605; 85025; 87040; 87077; 87086; 87150; 87186; 87205; 99284; J0696

== ENCOUNTER 2025-05-28 11:17 | Emergency (ER) | payer MEDICAID, SELFPAY ==
--- OUTSIDE RECORDS SUMMARY | 2023-11-09 10:37 | XMS_ITS | Continuity of Care Document ---
Author Organization [address] [place] [address] Address [address] [facility] [address] [place] [address] Phone Care Team Providers Care Spinner Box Name Role Phone Maria Antonia GOODENMaico Unavailable [...] Diagnoses Date Provider Providers Copied on Encounter [address] [place] [address], [id number], tel:[phone] [facility] No Information 4 Maria Antonia Nina. JACOB. [address] [place] [address], [id number], [place] tel:[phone] [facility] Complete loss of teeth, unspecified cause, unspecified class 3 JACOB Marsh II. Referring Provider: Thomas Zendejas. [address] [place] [address], [id number], [place] tel:[phone] [facility] Complete loss of teeth, unspecified cause, unspecified class 3 Nahid Vázquez [place]. Referring Provider: Thomas Zendejas. [address] [place] [address], [id number], tel:[phone] [facility] Diabetic eye exam (chief complaint) Type 2 diabetes mellitus without complicationsAg e-related nuclear cataract, bilateralCortic al age-related cataract, bilateralSquamo us blepharitis unspecified eye, unspecified eyelid 3 JACOB Dotson. Referring Provider: Thomas Zendejas. [address] [place] [address], [address] [address], [place], [place], [id number], tel:[phone] [facility] No Information 3 JACOB Dotson. [address] [place] [address], [address] [facility] [address], [place], [place], [id number], tel:[phone] [facility] Encounter for dental examination and cleaning without abnormal findings 3 [place] Leo. Referring Provider: Thomas Zendejas. Family History Family Member Type Diagnosis Age At Onset No Information Payers Payer name Insurance type Covered libertarian ID Authoriza ticarley(s) DDS Medicaid [facility] [id number] Social History Type Description Quantity Date Captured [...] Information Instructions Date Instruction Additional Infor rosy Impression/Plan - No active diabetic retinopathy present in either eye; We will monitor at regular intervals, recommend patient maintain good BS control to minimize ocular complications, progress note generated for patient's correction chart for PCP to review. Related to Type 2 diabetes mellitus without complications Impression/Plan - OU , mild+, not significantly affecting vision; surgery not indicated at this time, pt declines spec rx Related to Age-related nuclear cataract, bilateral Impression/Plan - OU , very mild, OS>OD; monitor as above Related to Cortical age-related cataract, bilateral Impression/Plan - OU , mild, pt denies symptoms; Lid scrub done today with gauze, saline and hypochlorous spray. Pt tolerated procedure. 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 Assessments Type Assessment Date No Information Patient Care Teams Name Effective Dates (start - stop) Status Members No Information
--- OUTSIDE RECORDS SUMMARY | 2025-05-28 11:27 | XMS_ITS | Encounter Summary ---
Author Organization [facility] Address [address] [facility] [address] [place] [address] Phone Care Team Providers Care Broach Setter Name Role Phone Ahsan Gilliam MD Primary Care Provider Encounter Details Date Type Department Care Team (Late st Contact Info) Description 06/22/2023 Orders Only [facility], [facility] [address] [facility] [address] [place] [address] Stage 5 chronic kidney disease [...] (HCC) documented in this encounter Care Teams Broach Setter Relationship Specialty Start Date End Date Ahsan Gilliam MD [address] [facility] [address] [place] [address] PCP - General Family Medicine 06/22/23 documented as of this encounter
--- OUTSIDE RECORDS SUMMARY | 2025-05-28 11:27 | XMS_ITS | Clinical Summary ---
Author Organization [facility] Facility Address [address] [place] [id number] Care Team Providers Care Sports Complex Attendant Name Role Phone Ahsan Gilliam MD Primary Care Provider [phone] Allergies No known active allergies Medications acetaminophen [...] 20 Active Insulin Pen Needle (TechLite Pen Chapman) 31G X 5 MM misc USE TO [...] Encounters Date Type Department Care Team Description 05/25/[address] [place] [address] [facility] [place], [facility] [address] [place] [phone] Kiersten Matamoros NP End stage renal disease; Dependence on renal dialysis 05/20/2025 Orders Only [facility], [facility] [address] [place] [address] Ora Aceves MD 05/13/[address] [place] [address] [facility], [facility] [address] [place] [address] Kiersten Matamoros NP End stage renal disease; Dependence on renal dialysis 05/11/[address] [place] [address] [facility], [facility] [address] [place] [address] Ora Aceves MD End stage renal disease; Dependence on renal dialysis 05/08/2025 [facility] [place], [facility] [address] [place] [address] Erika Magdaleno NP End stage renal disease; Dependence on renal dialysis 05/06/2025 Orders Only [facility] [place], [facility] [address] [place] [address] Ora Aceves MD 04/29/2025 Orders Only [facility], [facility] [address] [place] [address] Ora Aceves MD 04/22/2025 Orders Only [facility], [facility] [address] [place] [phone] Ora Aceves MD 04/22/[address] [place], [place] [address]rology [facility], [facility] [address] [place] [address] Ora Aceves MD End stage renal disease; Dependence on renal dialysis 04/15/2025 Orders Only [facility], [facility] [address] [place] [address] Ora Aceves MD 04/13/[address] [place] [address], [facility] [address] [place] [address] Kiersten Matamoros, KENN End stage renal disease; Dependence on renal dialysis 04/10/2025 Orders Only [facility], [facility] [address] [place] [address] Ora Aceves MD 04/08/[address] [place] [address], [facility] [address] [place] [address] Erika Magdaleno NP End stage renal disease; Dependence on renal dialysis 04/01/2025 Orders Only [facility], [facility] [address] [place] [phone] Ora Aceves MD 04/01/[address] [place] [address], [facility] [address] [place] [address] Erika Magdaleno NP End stage renal disease; Dependence on renal dialysis 03/25/2025 Orders Only [facility], [facility] [address] [place] [address] Ora Aceves MD 03/23/[address] [place], [place] [address]rology [facility], [facility] [address] [place] [address] Kiersten Matamoros NP End stage renal disease; Dependence on renal dialysis 03/18/2025 Orders Only [facility], [facility] [address] [place] [address] Ora Aceves MD 03/18/[address] [facility], [facility] [address] [place] [phone] Ora Aceves MD End stage renal disease; Dependence on renal dialysis 03/11/2025 Orders Only [facility], [facility] [address] [place] [address] Ora Aceves MD 03/09/[address] [facility], [facility] [address] [place] [address] Kiersten Matamoros NP End stage renal disease; Dependence on renal dialysis 03/04/2025 Orders Only [facility], [facility] [address] [place] [address] Ora Aceves MD 03/02/[address] [facility], [facility] [address] [place] [address] Kiersten Matamoros NP End stage renal disease; Dependence on renal dialysis 02/25/[address] [place] [address] [facility], [facility] [address] [place] [address] Ora Aceves MD End stage renal disease; Dependence on renal dialysis from Last 3 Months Immunizations Immunization Administration Dates Next Due Hepatitis A 09/09/2014,09/04/2013 Hepatitis B 09/09/2014,09/04/2013 Influenza Split 08/11/2013 Influenza Split Preservative Free ID 09/09/2014 Influenza, Quadrivalent, Pre servative Free 07/21/2021,07/26/2018,06/16/2015 Influenza, Quadrivalent, Wit h Preservative 08/11/2013 Moderna SARS-COV-2 12/17/2020,11/05/2020 PPD Test 07/21/2021,,04/22/2019,11/06 Pneumococcal Polysaccharide 03/15/2015 Tdap 05/28/2015,09/04/2013,10/01/2012 Family History [...] Comments Blood Pressure 147/57 08/09/2022 1:53 PM [facility] Pulse 88 04/27/2021 12:00 AM CDT Temperature 36.2 C (97.1 F) 12/13/2020 12:00 AM CDT Respiratory Rate - - Oxygen Saturation - - Inhaled Oxygen Concentration - - Weight 81.6 kg (180 lb) 08/09/2022 1:53 PM [facility] Height 175.3 cm (5' 9 ) 08/09/2022 1:53 PM [facility] Body Mass Index 26.58 08/09/2022 1:53 PM [facility] Plan of Treatment Health Maintenance Due Date [...] Procedure Name Priority Date/Time Associated Diagnosis Comments HEMATOLOGY Routine 05/20/2025 SPECTRA [facility] LAB RESULTS Routine 05/06/2025 HD KINETICS Routine 05/06/2025 POST CHEMISTRY Routine [...] SPECIAL CHEMISTRY Routine 03/04/2025 HEMATOLOGY Routine 03/04/2025 from Last 3 Months Results * (ABNORMAL) HEMATOLOGY (05/20/2025) Only the most recent of11 resultswithin the time period is included. Hemoglobin 11.5(L) 14.0 - 18.0 g/dL [facility] Hemoglobin x 3 34.5(L) 42.0 - 54.0 % [facility] 05/20/2025 05/21/2025 11: 47 AM CDT Narrative SPECTRAE - 05/21/2025 Unless otherwise specified, test(s) performed at: [facility], [address] [place] [address] WAD PRINTING MACHINE OPERATOR: Elbert Salinas M.D. For any questions, please call customer service at FREQUENCY:OTHER Resulting Agency Comment Specimen source: Blood Ora Aceves MD LAB BLOOD ORDERABLES Final Re sult Performing Organization Address [facility] Co de Phone Number [facility] See order comments or contact performing lab Unknown, [place] * HD KINETICS (05/06/2025) Only the most recent of3 resultswithin the time period is included. % Urea Reduction 74 65 - 80 % [facility] 05/06/2025 05/08/2025 12: 11 PM CDT Narrative Resulting Agency Comment Specimen source: Plasma us Ora Aceves MD LAB BLOOD ORDERABLES Final Re sult Performing Organization Address [facility]/ZIP Co de Phone Number [facility] See order comments or contact performing lab Unknown, [place] * POST CHEMISTRY (05/06/2025) Only the most recent of3 resultswithin the time period is included. BUN Post Dialysis 10 6 - 19 mg/dL [facility] 05/06/2025 05/08/2025 12: 11 PM CDT Narrative SPECTRAE - 05/09/2025 Unless otherwise specified, test(s) performed at: [facility], [address] [place], [place] [id number] WAD PRINTING MACHINE OPERATOR: Elbert Salinas M.D. For any questions, please call customer service at FREQUENCY:MONTHLY Resulting Agency Comment Specimen source: Plasma us Ora Aceves MD LAB BLOOD ORDERABLES Final Re sult SPECTRAE [facility] See order comments or contact performing lab Unknown, [place] * (ABNORMAL) [facility] Chemistry (05/06/2025) Only the most recent of5 resultswithin [...] 05/07/2025 Unless otherwise specified, test(s) performed at: [facility], [address] [place] [address] WAD PRINTING MACHINE OPERATOR: Elbert Salinas M.D. For any questions, please call customer service at FREQUENCY:MONTHLY Resulting Agency Comment Specimen source: Serum Ora Aceves MD LAB BLOOD ORDERABLES Final Re sult [facility] See order comments or contact performing lab Unknown, [place] * [facility] Lab Results (05/06/2025) Only the most recent of3 resultswithin the time period is included. Pathologist [facility] nPCR_HD 0.73 [facility] eKdrt/V 1.28 [facility] spKt/V Gotch 1.51 [facility] PCR 45.51 [facility] WSTDKT/V 2.4 [facility] eKt/V ([place]) 1.30 [facility] spKt/V (Daugirdas II) 1.52 [facility] eKt/V Gotch 1.28 [facility] [place] eNPCR 0.66 [facility] 05/06/2025 05/06/2025 [facility] Ordering Provider LAB BLOOD ORDERABLES Final Result Performing Organization Address City/[facility]/ZIP Co de Phone Number [facility] Center Contact Performing lab Unknown, [place] * (ABNORMAL) SPECIAL CHEMISTRY (03/04/2025) Pathologist [facility] Hemoglobin A1C 4.5(L) 4.8 - 5.9 % [facility] 03/04/2025 03/05/2025 1:0 8 PM CDT Narrative SPECTRAE - 03/05/2025 Unless otherwise specified, test(s) performed at: [facility], [address] [place], [place] [id number] WAD PRINTING MACHINE OPERATOR: Elbert Salinas M.D. For any questions, please call customer service at FREQUENCY:MONTHLY Resulting Agency Comment Specimen source: Blood us Ora Aceves MD LAB BLOOD BANK TEST ORDERABLE S Final Result [facility] See order comments or contact performing lab Unknown, [place] from Last 3 Months Insurance Medicaid [place] ([facility]) Medicaid [place] ([facility]) Care Teams Sports Complex Attendant Relationship Specialty Start Date End Date Ahsan Gilliam MD [address] [facility] [address] [place] [address] PCP - General Family Medicine 06/22/23
--- OUTSIDE RECORDS SUMMARY | 2025-05-28 11:27 | XMS_ITS | Encounter Summary ---
[facility] Organization [facility] Address [address] [place] [address] Phone Care Team Providers Care Wheel Loader Operator Name Role Phone Ahsan Gilliam MD Primary Care Provider [phone] Encounter Details Date Type Department Care Team (Late st Contact Info) Description 05/25/2025 Treatment 8[facility] [employer], [facility] [address] [place] [address] Kiersten Matamoros NP [address] [place] [address] End stage renal disease; Dependence on renal dialysis Social History Tobacco Use Types Packs/Day Years Used Date Smoking Tobacco: Every Day Cigarettes Sex and Gender Information Value Date Recorded Sex Assigned at Not on file Legal Sex Male 1:45 PM EDT Gender Identity Not on file Sexual Orientation Not on file documented as of this encounter Miscellaneous Notes * Dialysis Note - Kiersten Matamoros NP - 05/25/2025 12:00 AM CDT Patient: Tyrese Leach, 1970, 54y, M Dialysis Location: [facility] Attending Rad Tech: Ora Aceves Service Date: 05/25/2025 Service Provider: Kiersten Matamoros NP I met face to face with the patient today. OVERVIEW The patient presented with ESRD on dialysis Primary cause of renal failure: Type 1 diabetes mellitus with diabetic chronic kidney disease Comments: VSS, seen on HD machine. Sitter is with Tyrese. No changes. He has started on glucerna and liquicil at his nursing facility. He is eating better. His A1c was under 5% and insuliin stopped Medications and labs reviewed. LAST HOSPITALIZATION Discharge Diagnosis: N39.0 Urinary tract infection, site not specified A41.9 Sepsis, unspecified organism J96.01 Acute respiratory failure with hypoxia J69.0 Pneumonitis due to inhalation of food and vomit I50.9 Heart failure, unspecified Admission Date 01/23/25 Discharge Date 01/29/25 DIALYSIS PRESCRIPTION IHD 3x Week Start date: 04/10/25 Dialyzer: 180NRe Optiflux BFR: 450 DFR: Autoflow 2 Potassium: 2.0 Sodium: 138 EDW: 54 Duration: 3:30 Calcium: 2.5 Bicarb: 32 Rx updated on: 04/10/2025 TREATMENT ASSESSMENT Comments: Does not take am BP medications on HD days as he has had SBP into the 60s. Last visit lisinopril was increased. Blood pressure controlled. No changes indicated. BP Sit Pre 05/22/2025: 153/87 05/20/2025: 151/92 05/18/2025: 156/88 BP Sit Post 05/22/2025: 170/87 05/20/2025: 177/100 05/18/2025: 173/93 Tx Duration 05/22/2025: 3:33 05/20/2025: 3:44 05/18/2025: 3:32 Missed Treatments 0 - last 30 days 0 - last 60 days FLUID ASSESSMENT Comments: Stable. Fluid status acceptable. Interdialytic weight gain acceptable. No changes indicated. EDW (kg) 05/22/2025: 54.0 05/20/2025: 54.0 05/18/2025: 54.0 Weight Pre (kg) 05/22/2025: 56.5 05/20/2025: 57.8 05/18/2025: 56.0 Weight Post (kg) 05/22/2025: 53.9 05/20/2025: 56.4 05/18/2025: 54.2 PWV (kg) 05/22/2025: -0.1 05/20/2025: 2.4 05/18/2025: 0.2 UF Rate (mL/kg/hr) 05/22/2025: 13.6 05/20/2025: 6.6 05/18/2025: 9.4 ADEQUACY ASSESSMENT Comments: Stable trend spKt/V, URR 05/06/2025: 1.52, 74.0 04/01/2025: 1.46, 74.0 03/04/2025: 1.6, 75.0 ACCESS ASSESSMENT Access Type: CVCatheter Access SubType: Tunneled Access Status: Active (In Use) - 01/31/2024 Access Location: Chest Placed: 01/31/2024 Comments: Has a LUE AVF. There have been struggles s/t cognitive issues: has infiltrated his arm twice with movement since initiating cannulating began. Cognitive issues likely an impairment to access development. He does move around a lot and has as noted infiltrations. Will make him a permanent catheter. Vascular access reviewed. Current access is permanent and functioning well. ANEMIA ASSESSMENT Comments: On IV iron and GEOFF protocol HGB, TSAT 05/20/2025: 11.5, - 05/06/2025: 11.3, 25.0 04/29/2025: 11.5, - Ferritin 03/04/2025: 1239.0 12/03/2024: 1589.0 Darbepoetin Otto (Aranesp), IVP (mcg) 05/18/2025: 25 05/11/2025: 25 04/27/2025: 25 BMM ASSESSMENT Comments: On calcitriol now. Phos is stable. PTH, Intact 05/06/2025: 333.0 03/04/2025: 538.0 12/03/2024: 145.0 Calcium, Phosphorus 05/06/2025: 8.6, 3.7 04/01/2025: 8.9, 4.3 03/04/2025: 8.3, 4.0 Vitamin D (Calcitriol) Oral (mcg) 05/22/2025: 0.25 05/20/2025: 0.25 05/18/2025: 0.25 NUTRITION ASSESSMENT Comments: He is on liquicil and glucerna. Reports better appetite. Potassium, Albumin 05/06/2025: 5.0, 3.2 04/01/2025: 5.5, 3.5 03/04/2025: 5.1, 3.4 eNPCR 05/06/2025: 0.66 04/01/2025: 0.93 03/04/2025: 0.81 DIAGNOSIS Chief Complaint: N18.6 End stage renal disease Patient data updated 05/25/2025 at 4:43 PM Signed By: Kiersten Matamoros NP on 05/25/2025 4:45:09 PM documented in this encounter Plan of Treatment Not on file documented as of this encounter Visit Diagnoses Diagnosis End stage renal disease Dependence on renal dialysis documented in this encounter Care Teams Wheel Loader Operator Relationship Specialty Start Date End Date Ahsan Gilliam MD [address] [address] PCP - General Family Medicine 06/22/23 documented as of this encounter
--- OUTSIDE RECORDS SUMMARY | 2025-05-28 11:27 | XMS_ITS | Encounter Summary ---
Author Organization [facility] [employer], [facility] Address [address] [place] [address] Phone Care Team Providers Care Vacuum Cooker Operator Name Role Phone Ahsan Gilliam MD Primary Care Provider [phone] Encounter Details Date Type Department Care Team (Late st Contact Info) Description 05/20/2025 Orders Only [facility] [employer], [facility] [address] [place] [address] Ora Aceves MD [address] [place] [address] Social History Tobacco Use Types [...] Date/Time Associated Diagnosis Comments HEMATOLOGY Routine 05/20/2025 documented in this encounter Results * (ABNORMAL) HEMATOLOGY (05/20/2025) Hemoglobin 11.5(L) 14.0 - 18.0 g/dL [facility] Hemoglobin x 3 34.5(L) 42.0 - 54.0 % [facility] 05/20/2025 05/21/2025 11: 47 AM CDT Narrative [facility] - 05/21/2025 Unless otherwise specified, test(s) performed at: [facility], [address] [place] [id number] [facility] DIRECTOR: Elbert Salinas M.D. For any questions, please call customer service at FREQUENCY:OTHER Resulting Agency Comment Specimen source: Blood us Ora Aceves MD LAB BLOOD ORDERABLES Final Re sult [facility] See order comments or contact performing lab Unknown, [place] documented in this encounter Visit Diagnoses Not on filedocumented in this encounter Care Teams Vacuum Cooker Operator Relationship Specialty Start Date End Date Ahsan Gilliam MD [address] [phone] PCP - General Family Medicine 06/22/23 documented as of this encounter
--- OUTSIDE RECORDS SUMMARY | 2025-05-28 11:28 | XMS_ITS | Clinical Summary ---
Author Organization [facility] Address [address] [place] [place] [address] Phone Care Team Providers Care Housekeeper Caregiver Name Role Phone Unavailable Primary Care Provider [...] directed 03/21/20 24 Active Narcan 4 mg/actuation [place], Non-Aerosol CALL 911, USE 1 SPRAY IN [...] uit: Not Asked; Counseling Given: Not Answered Food Insecurity Answer Date Recorded Patient needs follow up regardin 02/08/2025 Transportation Needs Answer Date Record ed Patient needs follow up regardin 02/08/2025 Housing Stability Answer Date Recorded Social/Environmental Concerns No concerns Utility Needs Answer Date Recorded Patient needs follow up regardin 02/08/2025 Sex and Gender Information Value Date Recorded [...] 09/04/2013, 10/01/2012 Medical Devices Implanted Type Area Biomedical Equipment Technician Device Identifier Shelf Expiration Date Model / Serial / Lot Clip Ligating [place] Sm Ti [id number] - Csc - [id number] Implanted:Qty: 6 on 04/24/2024 by Tripp Cervantes MD at [facility] Clip Left: Arm [employer] 10/21/2028 [id number] / / [id number] Clip Ligating Horizon Med Ti [id number] - Csc - [id number] Implanted:Qty: 2 on 04/24/2024 by Tripp Cervantes MD at [facility] Clip Left: Arm [employer]- [employer] SYS 10/15/2028 [id number] / / [id number] Insurance [place] Advance Directives For more information, please contact: [phone] * Full Code (Latest Code Status on File) Date Activated Date Inactivated Comments 04/24/2024 9:15 AM 04/24/2024 5:21 PM
[2025-05-28 11:33] VITALS: BP 154/83; PULSE 75; RESP 18; TEMP 36.7; O2SAT 100; BMI 17.8
[2025-05-28 12:56] LABS: Hematocrit 35.3 % (37-53); Hemoglobin 11.20 g/dL (11.27-16.99); Mean Corpuscular HGB Conc 31.7 g/dL (30-55); Mean Corpuscular Hemoglobin 29.8 pg (27-33); Mean Corpuscular Volume 93.9 fl (82-101); Nucleated Red Blood Cells % 0 %; Platelet Count 242 10^3/cmm (157-399); Red Blood Count 3.76 10^6/uL (3.85-5.65); White Blood Count 6.93 10^3/uL (3.29-11.43)
[2025-05-28 13:04] LABS: INR 1.06 (0.8-1.2); Prothrombin Time 14.50 SECONDS (12.1-14.9)
[2025-05-28 13:09] LABS: Alanine Aminotransferase 9 U/L (0-41); Albumin Level 3.3 g/dL (3.5-5.2); Alkaline Phosphatase 89 U/L (40-130); Anion Gap 16.4 (5-19); Aspartate Amino Transferase 19 U/L (0-40); Blood Urea Nitrogen 41 mg/dL (6-20); Calcium 9.0 mg/dL (8.5-10.5); Carbon Dioxide 24 mmol/L (22-29); Chloride 98 mmol/L (98-107); Creatinine Clr Calc Pharmacy 26.1050; Globulin 3.6 g/dL (1.3-4.6); Glucose 132 mg/dL (65-115); Osmolality Calculated 290 mOsm/kg (285-295); Potassium 4.4 mmol/L (3.5-5.1); Sodium 134 mmol/L (136-145); Total Protein 6.9 g/dL (6.6-8.7)
--- NOTE | 2025-05-28 13:57 | W.ED.GIBLEED ---
HPI - GI Bleed General: Chief complaint: GI Bleed Stated complaint: Blood coming out of rectum and in stool Time Seen by Provider: 05/28/25 13:13 Source: other (Caregivers) Mode of arrival: wheelchair Limitations: physical limitation History of Present Illness: This patient is a 54-year-old male with past medical history of end-stage renal disease on dialysis, Sunday and Sunday, and diabetes who is brought into the emergency department by caregivers from [facility] due to 1 episode of reported hematochezia this morning. Caregivers had noted that the toilet bowl had been filled with blood, there was no actual stool. Patient cannot communicate the history directly due to his medical conditions. Caregivers report that he intermittently has dealt with diarrhea for quite some time, and there has been no acute change to this recently. He does have a history of external hemorrhoids, but that normally these have not given him problems with bleeding. An image was reviewed to me by staff which appears that the toilet bowl water is red-tinged, but is not filled with jennie red blood. Of note, yesterday the patient reportedly was drinking a large quantity of Manuel-Aid, red-colored. He has attended his dialysis sessions without complication. He does not take any blood thinner, has no history of colorectal cancer, has not been indicating any abdominal pain, has not been running any fevers, no night sweats or significant weight loss, and no other pertinent history reported by the caregivers. He is a nontoxic-appearing male with normal vital signs at this time and unremarkable abdominal exam with external hemorrhoids noted. Bedside guaiac testing negative. Labs ordered at this time. MD complaint: other (Blood-tinged toilet bowl water) Onset (ago): minute(s) Pain Consistency: now resolved Related Data Home Medications ?Medication ?Instructions ?Recorded ?Confirmed amlodipine 10 mg tablet 10 mg PO DAILY@03/30/23 05/28/25 benztropine 1 mg tablet 1 mg PO BID@03/30/23 05/28/25 multivitamin with folic acid 400 1 tab PO DAILY@03/30/23 05/28/25 mcg tablet (Daily-Sean (with folic acid)) aripiprazole 15 mg tablet 15 mg PO QPM 12/07/23 05/28/25 aspirin 325 mg tablet,delayed 325 mg PO DAILY 02/15/24 05/28/25 release fenofibrate 160 mg tablet 160 mg PO DAILY 02/15/24 05/28/25 acetaminophen 325 mg tablet 650 mg PO QID PRN Pain 09/04/24 05/28/25 (Tylenol) clonazepam 0.5 mg tablet See Rx Instructions .Route .COMPLEX 09/04/24 05/28/25 famotidine 20 mg tablet 20 mg PO BID 09/04/24 05/28/25 loperamide 2 mg tablet See Rx Instructions .Route 09/04/24 05/28/25 .COMPLEX PRN Diarrhea isosorbide mononitrate 30 mg 60 mg PO DAILY 12/07/24 05/28/25 tablet,extended release 24 hr atorvastatin 10 mg tablet 10 mg PO QPM 01/23/25 05/28/25 trazodone 100 mg tablet 250 mg PO QPM 04/28/25 05/28/25 lisinopril 40 mg tablet 40 mg PO DAILY 05/19/25 05/28/25 carbamazepine 200 mg tablet 200 mg PO DAILY 05/28/25 05/28/25 carvedilol 12.5 mg tablet 12.5 mg PO BID 05/28/25 05/28/25 dextrose 40 % oral gel (Glucose 15 g PO Q15M PRN low bs 05/28/25 05/28/25 Gel) lidocaine 5 % topical patch 1 patch topical DAILY 05/28/25 05/28/25 lurasidone 120 mg tablet 60 mg PO BID 05/28/25 05/28/25 polyethylene glycol 3350 17 gram 17 g PO DAILY 05/28/25 05/28/25 oral powder packet (Miralax) Previous Rx's ?Medication ?Instructions ?Recorded ondansetron 4 mg disintegrating 4 mg PO Q6H PRN nausea and 02/11/25 tablet vomiting #10 tabs mupirocin 2 % topical ointment 1 applic topical BID #15 grams 03/26/25 Wheelchair pad #1 ea 04/28/25 wheelchair restraints #1 ea 04/28/25 gabapentin 300 mg capsule 300 mg PO TID #90 caps 05/23/25 amoxicillin 875 mg-potassium 1 tab PO BID 10 days #20 tabs 05/28/25 clavulanate 125 mg tablet Allergies Allergy/AdvReac Type Severity Reaction Status Date / Time No Known Allergies Allergy Verified 05/19/25 13:37 Review of Systems General: Reports: ROS unobtainable due to medical condition PFSH ED PFSH: Medical History Malignant hypertension ESRD (end stage renal disease) Hyperlipemia, mixed Acute renal failure Acute kidney injury superimposed on CKD Acute hyponatremia Hyponatremia Anemia Hypervolemia Tobacco abuse Diabetes Social History Smoking and tobacco/nicotine status: current every day tobacco/nicotine user cigarettes Alcohol intake: former Substance/Drug Use: former Physical Exam Const: COMMON NORMALS: no acute distress EXAM LIMITATIONS: physical limitations GENERAL APPEARANCE: comfortable ORIENTATION/CONSCIOUSNESS: Yes awake OTHER: Nontoxic-appearing HENMT: COMMON NORMALS: normocephalic and atraumatic HEAD & SCALP: normocephalic and atraumatic Eye: COMMON NORMALS: Equal, round and reactive pupils present and EOMs intact bilaterally PUPIL: Yes Equal, round and reactive pupils present Neck/C-Spine: COMMON NORMALS: full ROM and no meningeal signs Resp: COMMON NORMALS: normal respiratory effort, No retractions, No use of accessory muscles and clear to auscultation bilaterally AUSCULTATION: clear to auscultation bilaterally Cardio: COMMON NORMALS: regular rate and regular rhythm RATE: regular rate RHYTHM: regular rhythm GI: COMMON NORMALS: Normal to inspection, nondistended, normoactive bowel sounds present, Soft to palpation and non-tender PALPATION: Yes Soft to palpation, No Guarding due to palpation present (GI) and No Rigid due to palpation OTHER: External examination reveals 2 external hemorrhoids. No palpable internal hemorrhoids during bedside guaiac testing. Guaiac negative stool. Patient's diaper also with stool, no blood Extremity: COMMON NORMALS: full ROM, no clubbing, cyanosis or edema and no pedal edema Neuro: COMMON NORMALS: moves all extremities, no focal motor deficits and no sensory deficits noted MENINGEAL SIGNS: Yes no meningeal signs Skin: COMMON NORMALS: no rashes or lesions noted GENERAL SKIN EXAM: no rashes or lesions noted Course Vital Signs: Vital signs: Vital Signs Temperature 98.0 F 05/28/25 11:33 Pulse Rate 80 05/28/25 14:30 Respiratory Rate 18 08/28/25 11:33 Blood Pressure 159/86 05/28/25 14:30 Pulse Oximetry 99 05/28/25 14:30 Oxygen Delivery Me thod Room Air 05/28/25 14:09 MDM - GI Bleed Medical Decision Making This patient is a 54-year-old male who presented with a single, self-limited episode of likely minor rectal bleeding in a hemodynamically stable patient with chronic kidney disease. His labs show stable hemoglobin that is slightly above baseline, no leukocytosis, and creatinine and BUN at baseline, 2.4 and 41, respectively. The urinalysis did not suggest any evidence that this was hematuria. However there is evidence that he has persistent urinary tract infection despite recent cefdinir, likely that he is resistant in reviewing his prior culture appears that he is susceptible to Augmentin which is renally safe. This will be sent to pharmacy. There is no evidence of ongoing bleeding, anemia, abdominal infection, or abdominal pathology. The bleeding very likely due to minor anorectal etiology such as external hemorrhoids or dietary pigment. While imaging is not indicated at this time given his chronic kidney disease and stable labs, he will be referred to general surgery/colorectal for outpatient evaluation. The patient is safe for discharge with strict return precautions that is given to caregivers, specifically for recurrent bleeding, melena, syncope, or abdominal pain. No acute intervention required in the ED at this time. Caregivers do agree with this plan. Lab Data 05/28/25 12:45 05/28/25 12:45 Laboratory Results WBC 6.93 10^3/uL (3.29-11.43) 05/28/25 12:45 RBC 3.76 10^6/uL (3.85-5.65) L 05/28/25 12:45 Hgb 11.20 g/dL (11.27-16.99) L 05/28/25 12:45 Hct 35.3 % (37-53) L 05/28/25 12:45 MCV 93.9 fl (82-101) 05/28/25 12:45 MCH 29.8 pg (27-33) 05/28/25 12:45 MCHC 31.7 g/dL (30-55) 05/28/25 12:45 RDW 15.7 % (12.1-15.1) H 05/28/25 12:45 Plt Count 242 10^3/cmm (157-399) 05/28/25 12:45 MPV 9.8 fL (7.4-10.4) 05/28/25 12:45 Neut % (Auto) 72.3 % 05/28/25 12:45 Lymph % (Auto) 15.6 % 05/28/25 12:45 [place] % (Auto) 10.4 % 05/28/25 12:45 Eos % (Auto) 1.0 % 05/28/25 12:45 Baso % (Auto) 0.4 % 05/28/25 12:45 Neut # (Auto) 5.01 10^3/uL (1.8-7.7) 05/28/25 12:45 Lymph # (Auto) 1.1 10^3/uL (0.8-4.8) 05/28/25 12:45 [place] # (Auto) 0.7 10^3/uL (0.2-0.9) 05/28/25 12:45 Eos # (Auto) 0.1 10^3/uL (0.0-0.8) 05/28/25 12:45 Baso # (Auto) 0.0 10^3/uL (0.0-0.1) 05/28/25 12:45 Nucleated RBC % (auto) 0 % 05/28/25 12:45 Nucleated RBCs # 0.0 /100WBC 05/28/25 12:45 PT 14.50 SECONDS (12.1-14.9) 05/28/25 12:45 INR 1.06 (0.8-1.2) 05/28/25 12:45 Sodium 134 mmol/L (136-145) L 05/28/25 12:45 Potassium 4.4 mmol/L (3.5-5.1) 05/28/25 12:45 Chloride 98 mmol/L (98-107) 05/28/25 12:45 Carbon Dioxide 24 mmol/L (22-29) 05/28/25 12:45 Anion Gap 16.4 (5-19) 05/28/25 12:45 BUN 41 mg/dL (6-20) H 05/28/25 12:45 Creatinine 2.4 mg/dL (0.7-1.2) H 05/28/25 12:45 GFR Calculation 34.2 mL/min (90-130) L 05/28/25 12:45 Glucose 132 mg/dL (65-115) H 05/28/25 12:45 Calculated Osmolality 290 mOsm/kg (285-295) 05/28/25 12:45 Calcium 9.0 mg/dL (8.5-10.5) 05/28/25 12:45 Total Bilirubin 0.4 mg/dL (0.15-1.2) 05/28/25 12:45 AST 19 U/L (0-40) 05/28/25 12:45 ALT 9 U/L (0-41) 05/28/25 12:45 Alkaline Phosphatase 89 U/L (40-130) 05/28/25 12:45 Total Protein 6.9 g/dL (6.6-8.7) 05/28/25 12:45 Albumin 3.3 g/dL (3.5-5.2) L 05/28/25 12:45 Globulin 3.6 g/dL (1.3-4.6) 05/28/25 12:45 Urine Color Yellow (Yellow) 05/28/25 14:15 Urine Appearance Turbid (CLEAR) A 05/28/25 14:15 Urine pH 7.0 (5-7) 05/28/25 14:15 Ur Specific [place] 1.013 (1.005-1.030) 05/28/25 14:15 Urine Protein 3+ (Negative) A 05/28/25 14:15 Urine Glucose (UA) Negative (Normal) 05/28/25 14:15 Urine Ketones Negative (Negative) 05/28/25 14:15 Urine Blood Trace (Negative) A 05/28/25 14:15 Urine Nitrate Negative (Negative) 05/28/25 14:15 Urine Bilirubin Negative (Negative) 05/28/25 14:15 Urine Urobilinogen 1.0 mg/dL (Negative) 05/28/25 14:15 Ur Leukocyte Esterase 2+ (Negative) A 05/28/25 14:15 Urine RBC 6-10 /hpf (0-2) 05/28/25 14:15 Urine WBC >100 /hpf (0-5) H 05/28/25 14:15 Ur Squamous Epith Cells 0-5 /hpf (0-5) 05/28/25 14:15 Amorphous Sediment Not Reportable 05/28/25 14:15 Urine Bacteria 4+ /hpf (NONE) H 05/28/25 14:15 Hyaline Casts 0-4 /lpf H 05/28/25 14:15 No radiology studies performed this visit Discharge Plan Discharge Patient Disposition: Home Clinical Impression: BRBPR (bright red blood per rectum) Urinary tract infection Qualifiers: Urinary tract infection type: acute cystitis Hematuria presence: without hematuria Qualified Code(s): N30.00 - Acute cystitis without hematuria Condition: Stable Prescriptions: New amoxicillin-pot clavulanate 875-125 mg tablet 1 tab PO BID 10 Days Qty: 20 0RF No Action polyethylene glycol 3350 [Miralax] 17 gram powder in packet 17 g PO DAILY dextrose [Glucose Gel] 40 % gel 15 g PO Q15M PRN (Reason: low bs) Rx Instructions: until symptoms of low blood sugar are controlled lidocaine 5 % adhesive patch,medicated 1 patch topical DAILY Rx Instructions: leave on most painful area for up to 12 hrs mupirocin 2 % ointment 1 applic topical BID Qty: 15 0RF (DME) Wheelchair pad See Rx Instructions .Route .MEDSUPPLY Qty: 1 0RF Rx Instructions: As directed (DME) wheelchair restraints See Rx Instructions .Route .MEDSUPPLY Qty: 1 0RF Rx Instructions: Risk of falls out of wheelchair with prior events. Needs restraints for safety. trazodone 100 mg tablet 250 mg PO QPM lisinopril 40 mg tablet 40 mg PO DAILY gabapentin 300 mg capsule 300 mg PO TID Qty: 90 5RF amlodipine 10 mg Tablet 10 mg PO DAILY@09 benztropine 1 mg Tablet 1 mg PO BID@09,21 multivitamin with folic acid [Daily-Sean (with folic acid)] 400 mcg tablet 1 tab PO DAILY@09 isosorbide mononitrate 30 mg Tablet Extended Release 24 Hr 60 mg PO DAILY carvedilol 12.5 mg tablet 12.5 mg PO BID lurasidone 120 mg tablet 60 mg PO BID carbamazepine 200 mg tablet 200 mg PO DAILY aripiprazole 15 mg tablet 15 mg PO QPM aspirin 325 mg tablet,delayed release (DR/EC) 325 mg PO DAILY fenofibrate 160 mg tablet 160 mg PO DAILY famotidine 20 mg tablet 20 mg PO BID acetaminophen [Tylenol] 325 mg Tablet 650 mg PO QID PRN (Reason: Pain) clonazepam 0.5 mg tablet See Rx Instructions .ROUTE .COMPLEX Rx Instructions: TAKE 1 TABLET BY MOUTH DAILY before dialysis on Sunday, Sunday, and Sunday for anxiety. loperamide 2 mg Tablet See Rx Instructions .ROUTE .COMPLEX PRN (Reason: Diarrhea) Rx Instructions: Take 2 tablets (4 mg) orally as needed at onset of diarrhea may repeat with each loose stool until symptoms controlled; do not exceed 8 mg per 24 hrs. atorvastatin 10 mg Tablet 10 mg PO QPM ondansetron 4 mg tablet,disintegrating 4 mg PO Q6H PRN (Reason: nausea and vomiting) Qty: 10 0RF Discharge Orders: Discharge ED (Routine); Ordered 05/28/25 Ordered By: Connor Mayfield Referrals: Ahsan Gilliam MD [Primary Care Provider, [facility]] Patient Instructions: Patient Portal & Kaye Instructions Activity Restrictions/Additional Instructions: Rectal Bleeding Discharge Discharge Instructions: Bright Red Blood Per Rectum Diagnosis and Initial Assessment: The patient is a 54-year-old male presenting with bright red blood per rectum, most likely secondary to benign anorectal pathology (e.g., hemorrhoids, fissure) versus dietary coloring (recent ingestion of red Manuel-Aid). Laboratory evaluation is reassuring, with no evidence of anemia or coagulopathy. Chronic kidney disease precluded contrast imaging. The patient will be referred to general surgery for further evaluation, including consideration of anoscopy and/or colonoscopy per consensus guidelines for patients over 50 with hematochezia. Management Recommendations: - Continue dialysis treatments as scheduled. - Dietary and Bowel Habits: - Maintain adequate hydration and a high-fiber diet to reduce straining and promote regular bowel movements. - Avoid prolonged sitting on the toilet and excessive straining. - If constipation is present, consider fiber supplementation (e.g., psyllium, methylcellulose) as first-line therapy. - Perianal Hygiene: - Gently clean the perianal area with water after bowel movements; avoid harsh soaps or wipes. - Sitz baths (warm water soaks for 10?15 minutes, 2?3 times daily) may provide symptomatic relief for pain or irritation. - Medication: - Avoid NSAIDs and other medications that may increase bleeding risk, unless specifically indicated for other comorbidities. - Topical agents (e.g., hydrocortisone cream) may be considered for symptomatic hemorrhoids or pruritus, if not contraindicated. - Follow-up: - Outpatient referral to general surgery for further evaluation, including anoscopy and/or colonoscopy, is recommended to exclude neoplastic or other significant pathology, given age >50 and new-onset rectal bleeding. - Review prior endoscopy records if available. Strict Return Precautions: The patient should return to the emergency department or contact their provider immediately for any of the following: - Large volume or persistent rectal bleeding - Dizziness, lightheadedness, syncope, or signs of hemodynamic instability (e.g., tachycardia, hypotension) - New or worsening abdominal pain, distention, or change in bowel habits - Fever, purulent drainage, or severe perianal pain (suggestive of abscess or infection) - Signs of anemia (fatigue, pallor, shortness of breath) - Any other concerning symptoms Special Considerations: - Chronic kidney disease increases risk for adverse outcomes in GI bleeding; ongoing monitoring and avoidance of nephrotoxic agents is advised. - If bleeding recurs or persists after initial management, further endoscopic evaluation is warranted to exclude colorectal cancer or other pathology. Summary: The patient is stable for discharge with outpatient follow-up and strict return precautions. Benign anorectal disease is the most likely etiology, but malignancy must be excluded in this age group. Conservative management and close follow-up are recommended. Print Language: Danish Coding Level of Care Code ED Mining Teacher for Maria R Garrison
[2025-05-28 14:09] VITALS: PULSE 77; O2SAT 98
[2025-05-28 14:30] VITALS: BP 159/86; PULSE 80; O2SAT 99
[2025-05-28 14:31] LABS: Glucose Urine UA Negative (Normal); Nitrate Urine Negative (Negative); Specific Gravity, Urine 1.013 (1.005-1.030)
[2025-05-28 14:37] LABS: Add Urine Microscopic? YES
[2025-05-28 15:15] LABS: UA Slide Review UA Slide Review Perf
[2025-05-28 15:54] VITALS: BP 153/78; PULSE 78; O2SAT 100
--- NOTE | 2025-05-29 09:45 | PC.NURSE ---
General Surgery Referral sent.
== END 2025-05-28 15:55 | disposition home or self-care (01) ==
PROVIDERS: Family Medicine; Emergency Provider Physician Assistant; PCP Family Medicine
DX: K62.5 Hemorrhage of anus and rectum (principal); N30.00 Acute cystitis without hematuria; Z79.82 Long term (current) use of aspirin; F17.210 Nicotine dependence, cigarettes, uncomplicated; E78.2 Mixed hyperlipidemia; E11.22 Type 2 diabetes mellitus with diabetic chronic kidney disease; I12.0 Hypertensive chronic kidney disease with stage 5 chronic kidney disease or end stage renal disease; N18.6 End stage renal disease
CPT/HCPCS: 36415; 80053; 81001; 85025; 85610; 87077; 87086; 87186; 99214; 99283

== ENCOUNTER 2025-06-15 13:36 | Inpatient (IN) | payer MEDICAID, SELFPAY ==
[2025-06-15] VITALS (43 sets, daily range): BP systolic 119–185; BP diastolic 74–98; PULSE 86–99; RESP 0–24; TEMP 36.2–37; O2SAT 90–100; BMI 19.8
--- NOTE | 2025-06-15 13:37 | XRR_ITS ---
PROCEDURE INFORMATION: Exam: XR Chest Exam date and time: 06/15/2025 1:40 PM Age: 55 years old Clinical indication: Cough and dyspnea; Additional info: Dyspnea/cough TECHNIQUE: Imaging protocol: Radiologic exam of the chest. Views: 1 view. COMPARISON: CR XR chest 1V portable [id number] 02/04/2025 2:34 PM FINDINGS: Tubes, catheters and devices: Large-bore right internal jugular catheter is again noted, with the tip in the right atrium. Lungs: There has been interval development marked bilateral, ill-defined opacities in both lungs, primarily in a perihilar distribution. Pleural spaces: No pleural effusion or pneumothorax. Heart/Mediastinum: The cardiac silhouette remains enlarged. Mediastinal size is normal. Bones/joints: Unremarkable. XR/XR chest 1V portable [id number] IMPRESSION: Marked bilateral perihilar opacities which could represent pneumonia, including atypical organism infection such as COVID. Additional diagnostic considerations include pulmonary edema and atypical inflammatory conditions.
--- NOTE | 2025-06-15 13:37 | ECG_ITS ---
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 [id number]
--- NOTE | 2025-06-15 13:44 | W.ED.SOB ---
HPI - SOB/Dyspnea General: Chief Complaint: Shortness of Breath/Dyspnea Stated Complaint: difficulty breathing Time Seen by Provider: 06/15/25 13:37 History of Present Illness: HPI Narrative: 55-year-old male presents emergency room with difficulty breathing. He was at dialysis setting difficulty breathing. Patient arrives here on 15 L by nonrebreather satting 90%. Patient has some cognitive disability he is not able to answer many questions. He does understand when asked questions. He does indicate he wishes to be intubated if needed he is listed as a full code on the chart. [facility] states he has not recently had a fever or cough. He has had multiple hospitalizations for pneumonia and has had aspiration pneumonia in the past. Patient is on dialysis had dialysis today prior to presenting to the emergency room. They have not noticed any significant lower extremity swelling. He has not had any complaints of abdominal pain or chest pain. Associated symptoms: Deny abdominal pain, chest pain or fever(s) Related Data Home Medications ?Medication ?Instructions ?Recorded ?Confirmed amlodipine 10 mg tablet 10 mg PO DAILY@03/30/23 06/14/25 benztropine 1 mg tablet 1 mg PO BID@03/30/23 06/14/25 multivitamin with folic acid 400 1 tab PO DAILY@03/30/23 06/14/25 mcg tablet (Daily-Sean (with folic acid)) aripiprazole 15 mg tablet 15 mg PO QPM 12/07/23 06/14/25 aspirin 325 mg tablet,delayed 325 mg PO DAILY 02/15/24 06/14/25 release fenofibrate 160 mg tablet 160 mg PO DAILY 02/15/24 06/14/25 acetaminophen 325 mg tablet 650 mg PO QID PRN Pain 09/04/24 06/14/25 (Tylenol) clonazepam 0.5 mg tablet See Rx Instructions .Route .COMPLEX 09/04/24 06/14/25 famotidine 20 mg tablet 20 mg PO BID 09/04/24 06/14/25 isosorbide mononitrate 30 mg 60 mg PO DAILY 12/07/24 06/14/25 tablet,extended release 24 hr atorvastatin 10 mg tablet 10 mg PO QPM 01/23/25 06/14/25 trazodone 100 mg tablet 250 mg PO QPM 04/28/25 06/14/25 lisinopril 40 mg tablet 40 mg PO DAILY 05/19/25 06/14/25 carvedilol 12.5 mg tablet 12.5 mg PO BID 05/28/25 06/14/25 dextrose 40 % oral gel (Glucose 15 g PO Q15M PRN low bs 05/28/25 06/14/25 Gel) lidocaine 5 % topical patch 1 patch topical DAILY 05/28/25 06/14/25 lurasidone 120 mg tablet 60 mg PO BID 05/28/25 06/14/25 polyethylene glycol 3350 17 gram 17 g PO DAILY 05/28/25 06/14/25 oral powder packet (Miralax) Previous Rx's ?Medication ?Instructions ?Recorded ondansetron 4 mg disintegrating 4 mg PO Q6H PRN nausea and 02/11/25 tablet vomiting #10 tabs mupirocin 2 % topical ointment 1 applic topical BID #15 grams 03/26/25 Wheelchair pad #1 ea 04/28/25 wheelchair restraints #1 ea 04/28/25 gabapentin 300 mg capsule 300 mg PO TID #90 caps 05/23/25 loperamide 2 mg tablet See Rx Instructions .Route 06/09/25 (Anti-Diarrheal (loperamide)) .COMPLEX #30 ea Allergies Allergy/AdvReac Type Severity Reaction Status Date / Time No Known Allergies Allergy Verified 05/19/25 13:37 Review of Systems Const: Denies: fever(s) or chills Card: Denies: chest pain Resp: Reports: dyspnea and non-productive cough GI: Denies: abdominal pain PFSH ED PFSH: Medical History Malignant hypertension ESRD (end stage renal disease) Hyperlipemia, mixed Acute renal failure Acute kidney injury superimposed on CKD Acute hyponatremia Hyponatremia Anemia Hypervolemia Tobacco abuse Diabetes Social History Smoking and tobacco/nicotine status: current every day tobacco/nicotine user cigarettes Alcohol intake: former Substance/Drug Use: former Physical Exam Const: GENERAL APPEARANCE: cooperative ORIENTATION/CONSCIOUSNESS: Yes awake HENMT: COMMON NORMALS: normocephalic, atraumatic and hearing grossly normal bilaterally HEAD & SCALP: normocephalic and atraumatic Resp: EFFORT & INSPECTION: Yes tachypneic, Yes labored and Yes grunting AUSCULTATION: rhonchi and wheezes Cardio: COMMON NORMALS: regular rate, regular rhythm and No murmurs present (Cardio) RATE: regular rate RHYTHM: regular rhythm GI: COMMON NORMALS: Soft to palpation and No hepatosplenomegaly present AUSCULTATION: Yes normoactive bowel sounds PALPATION: Yes Soft to palpation, No Tenderness to palpation present (GI), No Guarding due to palpation present (GI) and Yes No hepatosplenomegaly present Extremity: COMMON NORMALS: normal to inspection, capillary refill normal and no calf tenderness OTHER: Trace edema lower extremities Skin: COMMON NORMALS: no rashes or lesions noted GENERAL SKIN EXAM: no rashes or lesions noted Course Vital Signs: Vital signs: Vital Signs Temperature 98.6 F 06/15/25 13:39 Pulse Rate 99 06/15/25 13:39 Respiratory Rate 16 06/15/25 13:39 Blood Pressure 185/98 06/15/25 13:39 Pulse Oximetry 90 06/15/25 13:39 Oxygen Delivery Me thod Non-Rebreather 06/15/25 13:39 Oxygen Flow Rate 15 06/15/25 13:39 MDM - SOB/Dyspnea Medical Decision Making Chest x-ray shows no significant pneumonia multifocal. Discussed with hospitalist will admit hospitalist request meropenem and vancomycin. Patient is still a full code. Blood gas reviewed pCO2 46 pO2 62.7 patient has been started on BiPAP initially. He does not appear to be in congestive heart failure this appears to be more pneumonia possible aspiration pneumonia. Medical Records I reviewed the patient's medical records. Lab Data I reviewed the patient's lab results. 06/15/25 14:06 06/15/25 14:06 Labs/Radiology: Radiology Impressions Chest X-Ray 06/15/25 13:37 IMPRESSION: Marked bilateral perihilar opacities which could represent pneumonia, including atypical organism infection such as COVID. Additional diagnostic considerations include pulmonary edema and atypical inflammatory conditions. ADDENDUM: 06/15/25 1433 Findings were discussed with HAMILTON KENDALL at 06/15/2025 2:31 PM CDT. Laboratory Results WBC 7.60 10^3/uL (3.29-11.43) 06/15/25 14:06 RBC 3.78 10^6/uL (3.85-5.65) L 06/15/25 14:06 Hgb 11.20 g/dL (11.27-16.99) L 06/15/25 14:06 Hct 36.3 % (37-53) L 06/15/25 14:06 MCV 96.0 fl (82-101) 06/15/25 14:06 MCH 29.6 pg (27-33) 06/15/25 14:06 MCHC 30.9 g/dL (30-55) 06/15/25 14:06 RDW 15.8 % (12.1-15.1) H 06/15/25 14:06 Plt Count 222 10^3/cmm (157-399) 06/15/25 14:06 MPV 10.4 fL (7.4-10.4) 06/15/25 14:06 Neut % (Auto) 86.0 % 06/15/25 14:06 Lymph % (Auto) 7.2 % 06/15/25 14:06 Gem % (Auto) 5.4 % 06/15/25 14:06 Eos % (Auto) 0.7 % 06/15/25 14:06 Baso % (Auto) 0.4 % 06/15/25 14:06 Neut # (Auto) 6.54 10^3/uL (1.8-7.7) 06/15/25 14:06 Lymph # (Auto) 0.6 10^3/uL (0.8-4.8) L 06/15/25 14:06 Gem # (Auto) 0.4 10^3/uL (0.2-0.9) 06/15/25 14:06 Eos # (Auto) 0.1 10^3/uL (0.0-0.8) 06/15/25 14:06 Baso # (Auto) 0.0 10^3/uL (0.0-0.1) 06/15/25 14:06 Nucleated RBC % (auto) 0 % 06/15/25 14:06 Nucleated RBCs # 0.0 /100WBC 06/15/25 14:06 Specimen Type Arterial 06/15/25 13:45 Sample Site Radial, right 06/15/25 13:45 ABG pH 7.38 (7.35-7.45) 06/15/25 13:45 ABG pCO2 46.7 mmHg (35-45) H 06/15/25 13:45 ABG pO2 62.7 mmHg (80.0-100.0) L 06/15/25 13:45 ABG HCO3 27.7 mmol/L (22-26) H 06/15/25 13:45 ABG O2 Saturation 91.0 06/15/25 13:45 ABG Base Excess 2.0 mmol/L (-2.0-2.0) 06/15/25 13:45 Jeff Test Pos 06/15/25 13:45 A-a O2 Gradient 3.9 mmHg (5-10) L 06/15/25 13:45 Hematocrit 35.9 % (42-52) L 06/15/25 13:45 Hgb O2 Saturation 88.8 % (95-100) L 06/15/25 13:45 Carboxyhemoglobin 1.6 %THgb (0.4-20.1) 06/15/25 13:45 Methemoglobin 0.9 % (0.4-1.5) 06/15/25 13:45 Total Hemoglobin 11.7 g/dL (14-18) L 06/15/25 13:45 Sodium 135.0 mmol/L (131-143) 06/15/25 13:45 Potassium 3.8 mmol/L (3.5-5.0) 06/15/25 13:45 Glucose 150.0 mg/dL (70-115) H 06/15/25 13:45 Ionized Calcium 1.2 mmol/L (1.1-1.4) 06/15/25 13:45 O2 Delivery Device Nrb 06/15/25 13:45 O2 Liters/Min 15.0 % 06/15/25 13:45 Dental Lab Technician ID [place] 06/15/25 13:45 Sodium 135 mmol/L (136-145) L 06/15/25 14:06 Potassium 4.0 mmol/L (3.5-5.1) 06/15/25 14:06 Chloride 98 mmol/L (98-107) 06/15/25 14:06 Carbon Dioxide 23 mmol/L (22-29) 06/15/25 14:06 Anion Gap 18.0 (5-19) 06/15/25 14:06 BUN 31 mg/dL (6-20) H 06/15/25 14:06 Creatinine 2.3 mg/dL (0.7-1.2) H 06/15/25 14:06 GFR Calculation 35.8 mL/min (90-130) L 06/15/25 14:06 Glucose 146 mg/dL (65-115) H 06/15/25 14:06 Calculated Osmolality 289 mOsm/kg (285-295) 06/15/25 14:06 Lactic Acid 0.6 mmol/L (0.5-2.2) 06/15/25 14:06 Calcium 8.9 mg/dL (8.5-10.5) 06/15/25 14:06 Total Bilirubin 0.8 mg/dL (0.15-1.2) 06/15/25 14:06 AST 26 U/L (0-40) 06/15/25 14:06 ALT 14 U/L (0-41) 06/15/25 14:06 Alkaline Phosphatase 89 U/L (40-130) 06/15/25 14:06 Troponin T Baseline 97 ng/L (0-15) H 06/15/25 14:06 Total Protein 7.2 g/dL (6.6-8.7) 06/15/25 14:06 Albumin 3.5 g/dL (3.5-5.2) 06/15/25 14:06 Globulin 3.7 g/dL (1.3-4.6) 06/15/25 14:06 All radiology interpretation(s) finalized by discharge EKG Data EKG 1: Interpretation: EKG 06/15/2025 1350 sinus rhythm rate of 98. Patient does have a right bundle branch block which is new. CA interval is 178 QTc 506. Compared to EKG 02/04/2025 now has right bundle branch block Discharge Plan Discharge Patient Disposition: Admitted As Inpatient Admit Provider: Enrique Valdes Clinical Impression: Acute respiratory failure with hypoxia and hypercapnia, Type 2 diabetes mellitus with chronic kidney disease on chronic dialysis, without long-term current use of insulin, Pneumonia Condition: Stable Coding Level of Care Code ED Internal Revenue Service Agent for Chg Meli
[2025-06-15 13:55] LABS: ABG PCO2 46.7 mmHg (35-45); ABG PH Result 7.38 (7.35-7.45); Alveolar-Arterial Oxygen Gradi 3.9 mmHg (5-10); Arterial Blood Gas Hematocrit 35.9 % (42-52); Blood Gas Allen Test Pos; Blood Gas LPM 15.0 %; Blood Gas Operator Identificat WALCI; Blood Gas Sample Site Radial, right; Blood Gas Sample Type Arterial; Carboxyhemoglobin 1.6 %THgb (0.4-20.1); Glucose Level-ABG 150.0 mg/dL (70-115); HCO3 ABG 27.7 mmol/L (22-26); Ionized Calcium Level - ABG 1.2 mmol/L (1.1-1.4); Methemoglobin 0.9 % (0.4-1.5); Oxygen Saturation ABG 91.0; PO2 ABG 62.7 mmHg (80.0-100.0); Potassium Level - ABG 3.8 mmol/L (3.5-5.0); Sodium Level - ABG 135.0 mmol/L (131-143)
--- OUTSIDE RECORDS SUMMARY | 2025-06-15 14:10 | XMS_ITS | Clinical Summary ---
Author Organization [facility] Address [address] [place] [place] [address] Phone Care Team Providers Care Blueprint Maker Name Role Phone Unavailable Primary Care Provider [...] directed 03/21/20 24 Active Narcan 4 mg/actuation [place], Non-Aerosol CALL 911, USE 1 SPRAY IN [...] 09/04/2013, 10/01/2012 Medical Devices Implanted Type Area Medical Safety Director Device Identifier Shelf Expiration Date Model / Serial / Lot Clip Ligating Horizon Sm Ti [id number] - Csc - [id number] Implanted:Qty: 6 on 04/24/2024 by Tripp Cervantes MD at [facility] Clip Left: Arm [employer] 10/21/2028 [id number] / / [id number] Clip Ligating Horizon Med Ti [id number] - Csc - [id number] Implanted:Qty: 2 on 04/24/2024 by Tripp Cervantes MD at [facility] Clip Left: Arm [employer]LE[employer]LEX- [employer] SYS 10/15/2028 [id number] / / [id number] Insurance MEDICAID [place] Advance Directives For more information, please contact: [phone] * Full Code (Latest Code Status on File) Date Activated Date Inactivated Comments 04/24/2024 9:15 AM 04/24/2024 5:21 PM
[2025-06-15 14:15] LABS: Hematocrit 36.3 % (37-53); Hemoglobin 11.20 g/dL (11.27-16.99); Mean Corpuscular HGB Conc 30.9 g/dL (30-55); Mean Corpuscular Hemoglobin 29.6 pg (27-33); Mean Corpuscular Volume 96.0 fl (82-101); Nucleated Red Blood Cells % 0 %; Platelet Count 222 10^3/cmm (157-399); Red Blood Count 3.78 10^6/uL (3.85-5.65); White Blood Count 7.60 10^3/uL (3.29-11.43)
[2025-06-15 14:36] LABS: Troponin(5th) Baseline 97 ng/L (0-15)
[2025-06-15 14:37] LABS: Lactic Sepsis W/Reflex 0.6 mmol/L (0.5-2.2)
[2025-06-15 14:49] LABS: Alanine Aminotransferase 14 U/L (0-41); Albumin Level 3.5 g/dL (3.5-5.2); Alkaline Phosphatase 89 U/L (40-130); Aspartate Amino Transferase 26 U/L (0-40); Blood Urea Nitrogen 31 mg/dL (6-20); Calcium 8.9 mg/dL (8.5-10.5); Carbon Dioxide 23 mmol/L (22-29); Chloride 98 mmol/L (98-107); Creatinine Clr Calc Pharmacy 32.7817; Globulin 3.7 g/dL (1.3-4.6); Glucose 146 mg/dL (65-115); Osmolality Calculated 289 mOsm/kg (285-295); Sodium 135 mmol/L (136-145); Total Protein 7.2 g/dL (6.6-8.7)
[2025-06-15 14:52] LABS: Anion Gap 18.0 (5-19); Potassium 4.0 mmol/L (3.5-5.1)
--- NOTE | 2025-06-15 14:57 | CT_ITS ---
WS: [id number] CT CHEST ANGIOGRAPHY WITH REFORMATS HISTORY: shortness of breath TECHNIQUE: Contiguous axial images are obtained through the chest during arterial injection of intravenous contrast. Images are reconstructed to evaluate the pulmonary arteries. MIP imaging also reviewed. All CT scans at [facility] use at least one of these dose optimization techniques: automated exposure control; mA and/or kV adjustment per patient size (includes targeted exams where dose is matched to clinical indication); or iterative reconstruction. CONTRAST: Omnipaque 350; 100 mL IV. DLP: 378.01 mGy.cm COMPARISON: 12/07/2024 Good opacification of the pulmonary arteries. No central pulmonary emboli identified. Pulmonary arteries normal size. There is good opacification through the segmental branches. No RIGHT heart strain. Normal size aorta. There dense irregular pulmonary consolidations throughout both lungs and involving all lobes. Mild sparing of the periphery. More dense consolidations extending to the periphery at the lung bases. Small layering RIGHT pleural effusion. Moderate cardiomegaly. No pericardial effusion. Tricuspid regurgitation into the hepatic veins. No adenopathy. Diffuse soft tissue anasarca throughout the chest and upper abdomen. There is also mesenteric edema. Bones are osteopenic. CT/CT angio chest PE protcl [id number] IMPRESSION: 1. No pulmonary embolism. 2. Extensive multifocal pulmonary consolidation throughout both lungs. More de nse focal consolidation extend to the periphery at the lung bases, greatest on the LEFT. Suspect cardiogenic pulmonary edema with superimposed pneumonia and/o r atelectasis at the bases. Differential includes ARDS, pulmonary hemorrhage an d noncardiogenic pulmonary edema. 3. Diffuse soft tissue anasarca. 4. Moderate cardiomegaly.
--- NOTE | 2025-06-15 15:04 | PM.HP ---
Providers/Chief Complaint Admitting Physician: Enrique Valdes MD Primary Care Provider: Valente Harding DO Chief Complaint: difficulty breathing History of Present Illness Tyrese Leach is a 55 year old male with a past medical history of intellectual disability, at a long-term, end-stage renal disease on dialysis, history of type 2 diabetes, currently off insulin therapy, he has healthcare power of tax associate attorney has , currently makes decisions for himself but there is in the works of having a guardian for patient, history of aspiration pneumonia/aspiration pneumonitis, who presents to [facility] due to acute hypoxia, lethargy, confusion. Currently Tyrese is on 15 L nonrebreather, he is on mild to moderate respiratory distress, nasopharynx went to culture retractions, suprasternal retractions, he is able to awaken, able to follow commands, he smiles at the caregivers at bedside, he is able to shake my hand, I cannot get a lot of history from him given his intellectual disability and his encephalopathy, but according to caregivers, he was at the dialysis center, he was about an hour into dialysis, when he started becoming lethargic, short of breath, with low O2 sats in the low 70s, so they had to call EMS, rule recent illnesses no recent falls, no known aspiration Review of Systems General: Reports: ROS unobtainable due to medical condition and ROS unobtainable due to mental status Medications/Allergies Home Medications ?Medication ?Instructions ?Recorded ?Confirmed ?Last Taken ?Type amlodipine 10 mg tablet 10 mg PO DAILY@03/30/23 06/14/25 05/28/25 History benztropine 1 mg tablet 1 mg PO BID@03/30/23 06/14/25 05/28/25 History multivitamin with folic acid 400 1 tab PO DAILY@03/30/23 06/14/25 05/28/25 History mcg tablet (Daily-Sean (with folic acid)) aripiprazole 15 mg tablet 15 mg PO QPM 12/07/23 06/14/25 05/27/25 History aspirin 325 mg tablet,delayed 325 mg PO DAILY 02/15/24 06/14/25 05/28/25 History release fenofibrate 160 mg tablet 160 mg PO DAILY 02/15/24 06/14/25 05/28/25 History acetaminophen 325 mg tablet 650 mg PO QID PRN Pain 09/04/24 06/14/25 02/04/25 History (Tylenol) clonazepam 0.5 mg tablet See Rx Instructions .Route .COMPLEX 09/04/24 06/14/25 05/27/25 History famotidine 20 mg tablet 20 mg PO BID 09/04/24 06/14/25 05/28/25 History isosorbide mononitrate 30 mg 60 mg PO DAILY 12/07/24 06/14/25 05/28/25 History tablet,extended release 24 hr atorvastatin 10 mg tablet 10 mg PO QPM 01/23/25 06/14/25 05/27/25 History ondansetron 4 mg disintegrating 4 mg PO Q6H PRN nausea and 02/11/25 06/14/25 Unknown Rx tablet vomiting #10 tabs mupirocin 2 % topical ointment 1 applic topical BID #15 grams 03/26/25 06/14/25 05/28/25 Rx Wheelchair pad #1 ea 04/28/25 06/14/25 Unknown Rx trazodone 100 mg tablet 250 mg PO QPM 04/28/25 06/14/25 05/27/25 History wheelchair restraints #1 ea 04/28/25 06/14/25 Unknown Rx lisinopril 40 mg tablet 40 mg PO DAILY 05/19/25 06/14/25 05/28/25 History gabapentin 300 mg capsule 300 mg PO TID #90 caps 05/23/25 06/14/25 05/28/25 Rx carvedilol 12.5 mg tablet 12.5 mg PO BID 05/28/25 06/14/25 05/28/25 History dextrose 40 % oral gel (Glucose 15 g PO Q15M PRN low bs 05/28/25 06/14/25 Unknown History Gel) lidocaine 5 % topical patch 1 patch topical DAILY 05/28/25 06/14/25 05/27/25 History lurasidone 120 mg tablet 60 mg PO BID 05/28/25 06/14/25 05/28/25 History polyethylene glycol 3350 17 gram 17 g PO DAILY 05/28/25 06/14/25 05/28/25 History oral powder packet (Miralax) loperamide 2 mg tablet See Rx Instructions .Route 06/09/25 06/14/25 Unknown Rx (Anti-Diarrheal (loperamide)) .COMPLEX #30 ea Allergies Allergy/AdvReac Type Severity Reaction Status Date / Time No Known Allergies Allergy Verified 05/19/25 13:37 PFSH Acute PFSH: Medical History Malignant hypertension ESRD (end stage renal disease) Hyperlipemia, mixed Acute renal failure Acute kidney injury superimposed on CKD Acute hyponatremia Hyponatremia Anemia Hypervolemia Tobacco abuse Diabetes Social History Smoking and tobacco/nicotine status: current every day tobacco/nicotine user cigarettes Alcohol intake: former Substance/Drug Use: former Vitals/I&O/Wt Last Vital Signs Temp 98.6 F 06/15/25 13:39 Pulse 99 06/15/25 13:39 Resp 16 06/15/25 13:39 BP 185/98 06/15/25 13:39 Pulse Ox 90 06/15/25 13:39 O2 Del Method Non-Rebreather 06/15/25 13:39 O2 Flow Rate 15 06/15/25 13:39 Weight last 48 hrs Weight 58.967 kg Physical Exam Const: EXAM LIMITATIONS: altered mental status GENERAL APPEARANCE: in distress and ill appearing NUTRITIONAL APPEARANCE: thin ORIENTATION/CONSCIOUSNESS: Yes awake, Yes oriented to person and Yes confused; not oriented to place and not oriented to time Eye: COMMON NORMALS: Equal, round and reactive pupils present Neck/C-Spine: COMMON NORMALS: no lymphadenopathy Resp: EFFORT & INSPECTION: Yes abnormal respiratory pattern, Yes tachypneic and Yes respiratory distress AUSCULTATION: crackles and wheezes OTHER: Mild to moderate respiratory distress, nasopharynx, intercostal retractions, suprasternal retractions, tachypnea, tachycardia Cardio: COMMON NORMALS: regular rate, regular rhythm, S1 normal heart sound present and S2 normal heart sound present RATE: bradycardic RHYTHM: regular rhythm HEART SOUNDS: S1 normal heart sound present and S2 normal heart sound present GI: COMMON NORMALS: Normal to inspection, nondistended, normoactive bowel sounds present, Soft to palpation and non-tender Extremity: COMMON NORMALS: no pedal edema Neuro: OTHER: Moves bilateral upper and lower extremities, can follow commands, but difficult to assess given his global encephalopathy, his intellectual disability Data 06/15/25 14:06 06/15/25 14:06 Micro: Microbiology 06/15/25 14:06 Blood Culture - Preliminary Blood SPECIMEN COLLECTED 06/15/25 14:02 Blood Culture - Preliminary Blood SPECIMEN COLLECTED A&P Assessment and plan 1. Acute hypoxic respiratory failure: 2. Sepsis: 3. Bilateral pneumonia: 4. ARDS (adult respiratory distress syndrome): 5. Pulmonary edema: 6. ESRD (end stage renal disease): 7. Dialysis patient: 8. NSTEMI (non-ST elevated myocardial infarction): 9. Intellectual disability: 10. Diabetes mellitus with hyperglycemia: 11. Type 1 diabetes mellitus with chronic kidney disease on chronic dialysis: 12. Aspiration pneumonia: Plan: Acute hypoxic respiratory failure -With evidence of acute respiratory distress - Multifactorial - Component of pneumonia, bilateral, history of aspiration pneumonia, aspiration pneumonitis - Concerns for fluid overload, pulmonary edema, acute flash pulmonary edema Plan -Admit to ICU - Currently on 15 L nonrebreather, in mild to moderate respiratory distress - Low threshold for intubation - Vancomycin - Meropenem - Solu-Medrol 125 mg followed by 40 mg IV every 8 hours - Lasix therapy -DuoNeb -Budesonide - Nephrology consulted for urgent dialysis for fluid overload - Sputum culture - Blood cultures - Monitor respiratory status closely - Full code - Lovenox for DVT prophylaxis Sepsis - Sepsis features met given acute respiratory failure, pneumonia on chest x-ray, NSTEMI NSTEMI, serial EKGs, serial troponins, telemetry monitoring Acute encephalopathy - Multifactorial from pneumonia, sepsis Intellectual disability History of aspiration, aspiration pneumonitis, keep n.p.o. PDMP PDMP Reviewed: Not Reviewed Attestations Medical Necessity Statement*: Patient requires hospitalization for acute encephalopathy, sepsis, acute hypoxic respiratory failure, NSTEMI, fluid overload, pneumonia, ards, inpatient, greater than 2 midnights Coding Level of Care Code Critical Care >/= 30 minutes Critical care time (in minutes): 45 The high probability of a clinically significant, sudden or life threatening deterioration, as referenced in this documentation, required my full and direct attention, intervention and personal management. The critical care time shown is in addition to time spent performing any reported separately billable procedures and includes the following: [x] Data and vital sign review and interpretation [x] Patient assessment, examination and intervention [x] Medication orders and management [x] Patient/Family updates as able [x] Care Coordination and Documentation. Diagnoses Acute hypoxic respiratory failure J96.01 Sepsis A41.9 Bilateral pneumonia J18.9 ARDS (adult respiratory distress syndrome) J80 Pulmonary edema J81.1 ESRD (end stage renal disease) N18.6 Dialysis patient Z99.2 NSTEMI (non-ST elevated myocardial infarction) I21.4 Intellectual disability F79 Diabetes mellitus with hyperglycemia E11.65 Type 1 diabetes mellitus with chronic kidney disease on chronic dialysis E10.22; N18.6; Z99.2 Diabetes mellitus complication status: with kidney complications Diabetes mellitus complication detail: with chronic kidney disease Chronic kidney disease stage: on chronic dialysis Aspiration pneumonia J69.0 Sepsis Event Note Evaluation Current stage of sepsis: severe sepsis Possible source: pulmonary Focused Exam Vital Signs Temp Pulse Resp BP Pulse Ox O2 Del Method O2 Flow Rate 06/15/25 13:39 98.6 F 99 16 185/98 90 Non-Rebreather 15 Respiratory exam: Present accessory muscle use, respiratory distress and wheezes Cardiovascular exam: Present tachycardia Capillary refill: < 3 Seconds Peripheral pulse strength: 2+ Slightly Diminished Skin exam: normal turgor Date exam was performed: 06/15/25 Time exam was performed: 15:08 Problem List 1. Acute hypoxic respiratory failure: Status: Resolved 2. Sepsis: Status: Resolved 3. Bilateral pneumonia: Status: Acute 4. ARDS (adult respiratory distress syndrome): Status: Acute 5. Pulmonary edema: Status: Resolved 6. ESRD (end stage renal disease): Status: Inactive 7. Dialysis patient: Status: Inactive 8. NSTEMI (non-ST elevated myocardial infarction): Status: Acute 9. Intellectual disability: Status: Inactive 10. Diabetes mellitus with hyperglycemia: Status: Inactive 11. Type 1 diabetes mellitus with chronic kidney disease on chronic dialysis: Status: Acute 12. Aspiration pneumonia: Status: Resolved
[2025-06-15] MEDS: meropenem 1,000 mg SDV 1000 MG IVP ×2 (15:10→22:03)
[2025-06-15] MEDS: iohexol 350 mg/mL 500 mL Btl (per mL) IV (15:36)
--- NOTE | 2025-06-15 15:37 | ECG_ITS ---
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 Measurements Intervals [place] Rate: 98 P: 57 WI: 178 QRS: -36 QRSD: 153 T: 11 QT: 395 QTc: 506 Interpretive Statements SINUS RHYTHM LEFT AXIS DEVIATION [QRS AXIS < -30] RIGHT BUNDLE BRANCH BLOCK [120+ ms QRS DURATION, UPRIGHT V1, 40+ ms S IN I/aVL/V4/V5/V6] Compared to ECG 02/04/2025 13:55:33 Left-axis deviation now present Right bundle-branch block now present Intraventricular conduction delay no longer present Electronically Signed On 06-16-2025 18:11:10 CDT by Yovanny Pinon M.D. [email or web address]
[2025-06-15 16:20] LABS: Procalcitonin 1.12 ng/mL (0-0.5)
[2025-06-15] MEDS: methylPREDNISolone sod succ 125 mg/2 mL INJ IVP (16:22)
[2025-06-15 16:39] LABS: Respiratory Syncytial Virus Ce NEGATIVE (Negative); SARS-CoV-2 PCR NEGATIVE (Negative)
--- NOTE | 2025-06-15 16:41 | PHA.VACGOAL ---
Vancomycin Goal - Goal Vancomycin Goal:: 15-20 mg/L Vancomycin Indication:: Other (SEPSIS) - Therapy Current therapy:: Meropenem Day of therpy:: Day []of [] . Actual body weight (kg): 130 lb - Data Labs: WBC 7.60 10^3/uL (3.29-11.43) 06/15/25 14:06 RBC 3.78 10^6/uL (3.85-5.65) L 06/15/25 14:06 Hgb 11.20 g/dL (11.27-16.99) L 06/15/25 14:06 Hct 36.3 % (37-53) L 06/15/25 14:06 MCV 96.0 fl (82-101) 06/15/25 14:06 MCH 29.6 pg (27-33) 06/15/25 14:06 MCHC 30.9 g/dL (30-55) 06/15/25 14:06 RDW 15.8 % (12.1-15.1) H 06/15/25 14:06 Sodium 135 mmol/L (136-145) L 06/15/25 14:06 Potassium 4.0 mmol/L (3.5-5.1) 06/15/25 14:06 Chloride 98 mmol/L (98-107) 06/15/25 14:06 Carbon Dioxide 23 mmol/L (22-29) 06/15/25 14:06 Anion Gap 18.0 (5-19) 06/15/25 14:06 BUN 31 mg/dL (6-20) H 06/15/25 14:06 Creatinine 2.3 mg/dL (0.7-1.2) H 06/15/25 14:06 GFR Calculation 35.8 mL/min (90-130) L 06/15/25 14:06 Last dialysis session:: Last session (TODAY, MAY NOT HAVE RECEIVED FULL SESSION.) Treatment plan:: new consult Regimen:: 1000 MG GIVEN IN ER. ORDERED ADDITIONAL 1000 MG FOR TOTAL LOADING DOSE OF 2000 MG. WILL DRAW RANDOM LEVEL WITH AM LABS TO DETERMINE IF PATIENT NEEDS ADDITIONAL DOSING. WAITING ON DIALYSIS PLAN FOR DOSES FOLLOWING SESSION.
[2025-06-15] MEDS: heparin, porcine 1,000 unit/mL INJ 10 mL 10000 UNIT INTRACATH (16:44)
[2025-06-15] MEDS: heparin, porcine 1,000 unit/mL INJ 10 mL 1000 UNIT IV (16:45)
[2025-06-15 17:09] LABS: NT Pro B Type Natriuretic Pept > 70000 pg/mL (0-125)
[2025-06-15] MEDS: ATORVASTATIN 10 MG TABLET PO (17:13)
[2025-06-15] MEDS: FUROsemide 10 mg/mL SDV 10mL 60 MG IVP (17:13)
[2025-06-15] MEDS: pantoprazole 40 mg SDV IVP (17:14)
[2025-06-15] MEDS: heparin 5,000 unit/mL INJ 1 mL 5000 UNIT SUBCUT (17:14)
[2025-06-15 18:23] LABS: Troponin 5 2HR 98.71 ng/L (0-15); Troponin 5 2HR Delta 1.71 ABS# (0-10)
[2025-06-15 18:23] LABS: Cholesterol 100 mg/dL (0-200); HDL Cholesterol 52 mg/dL (60-100); Thyroid Stimulating Hormone 0.71 uIU/mL (0.27-4.20); Triglycerides 57 mg/dL (0-150)
--- NOTE | 2025-06-15 19:37 | ECG_ITS ---
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 Measurements Intervals [place] Rate: 89 P: 64 SD: 175 QRS: -30 QRSD: 154 T: -34 QT: 416 QTc: 508 Interpretive Statements SINUS RHYTHM WITH OCCASIONAL SUPRAVENTRICULAR PREMATURE COMPLEXES INDETERMINATE AXIS RIGHT BUNDLE BRANCH BLOCK [120+ ms QRS DURATION, UPRIGHT V1, 40+ ms S IN I/aVL/V4/V5/V6] MODERATE T-WAVE ABNORMALITY, CONSIDER LATERAL ISCHEMIA [-0.1+ mV T-WAVE IN I/aVL/V5/V6].MODERATE T-WAVE ABNORMALITY, CONSIDER INFERIOR ISCHEMIA [-0.1+ mV T-WAVE IN II/aVF] Compared to ECG 06/15/2025 13:50:34 Indeterminate axis now present T-wave abnormality now present Possible ischemia now present Left-axis deviation no longer present Electronically Signed On 06-16-2025 18:09:23 CDT by Yovanny Pinon M.D. [email or web address]
--- NOTE | 2025-06-15 20:04 | PM.CONSULT ---
Providers/Reason For Consult Consulting Physician/Specialty*: [facility]/Nephrology Reason for Consult*: ESRD Attending Physician: Enrique Valdes MD Primary Care Provider: Valente Harding DO History of Present Illness History of Present Illness Tyrese Leach is a 55 year old male Patient is a 55-year-old male with past medical history of end-stage renal disease on dialysis per Sunday, diabetes, intellectual disability currently resides in a jail, was sent to the emergency department due to acute hypoxia lethargy and altered mental status. Patient was initially placed on 15 L nonrebreather mask. Patient received 1 hour of dialysis and was sent here for further evaluation. Patient was noted to be in volume overload and he was desatting in the ER currently admitted to the intensive care unit. There was concern for aspiration pneumonia as well. Review of Systems Narrative: cannot obtain Medications/Allergies Home Medications ?Medication ?Instructions ?Recorded ?Confirmed ?Last Taken ?Type amlodipine 10 mg tablet 10 mg PO DAILY@03/30/23 06/15/25 06/15/25 History benztropine 1 mg tablet 1 mg PO BID@03/30/23 06/15/25 06/15/25 History multivitamin with folic acid 400 1 tab PO DAILY@03/30/23 06/15/25 06/15/25 History mcg tablet (Daily-Sean (with folic acid)) aripiprazole 15 mg tablet 15 mg PO QPM 12/07/23 06/15/25 06/14/25 History aspirin 325 mg tablet,delayed 325 mg PO DAILY 02/15/24 06/15/25 06/15/25 History release fenofibrate 160 mg tablet 160 mg PO DAILY 02/15/24 06/15/25 06/15/25 History acetaminophen 325 mg tablet 650 mg PO QID PRN Pain 09/04/24 06/15/25 02/04/25 History (Tylenol) clonazepam 0.5 mg tablet See Rx Instructions .Route .COMPLEX 09/04/24 06/15/25 05/27/25 History famotidine 20 mg tablet 20 mg PO BID 09/04/24 06/15/25 06/15/25 History isosorbide mononitrate 30 mg 60 mg PO DAILY 12/07/24 06/15/25 06/15/25 History tablet,extended release 24 hr atorvastatin 10 mg tablet 10 mg PO QPM 01/23/25 06/15/25 06/14/25 History ondansetron 4 mg disintegrating 4 mg PO Q6H PRN nausea and 02/11/25 06/15/25 Unknown Rx tablet vomiting #10 tabs mupirocin 2 % topical ointment 1 applic topical BID #15 grams 03/26/25 06/15/25 06/15/25 Rx Wheelchair pad #1 ea 04/28/25 06/15/25 Unknown Rx trazodone 100 mg tablet 250 mg PO QPM 04/28/25 06/15/25 06/14/25 History wheelchair restraints #1 ea 04/28/25 06/15/25 Unknown Rx lisinopril 40 mg tablet 40 mg PO DAILY 05/19/25 06/15/25 06/15/25 History gabapentin 300 mg capsule 300 mg PO TID #90 caps 05/23/25 06/15/25 06/15/25 Rx carvedilol 12.5 mg tablet 12.5 mg PO BID 05/28/25 06/15/25 06/15/25 History dextrose 40 % oral gel (Glucose 15 g PO Q15M PRN low bs 05/28/25 06/15/25 Unknown History Gel) lidocaine 5 % topical patch 1 patch topical DAILY 05/28/25 06/15/25 06/15/25 History lurasidone 120 mg tablet 60 mg PO BID 05/28/25 06/15/25 06/15/25 History polyethylene glycol 3350 17 gram 17 g PO DAILY 05/28/25 06/15/25 06/15/25 History oral powder packet (Miralax) loperamide 2 mg tablet See Rx Instructions .Route 06/09/25 06/15/25 Unknown Rx (Anti-Diarrheal (loperamide)) .COMPLEX #30 ea Allergies Allergy/AdvReac Type Severity Reaction Status Date / Time No Known Allergies Allergy Verified 05/19/25 13:37 Current Medications Generic Name Dose Route Start Last Admin Trade Name Freq PRN Reason Stop Dose Admin Albuterol/Ipratropium 3 ml 06/15/25 16:25 06/15/25 17:23 Ipratropium-Albuterol 3 Ml Neb INHALATION 3 ml QID.RESPIRATORY CARLOS Administration Aripiprazole 15 mg 06/15/25 18:00 06/15/25 17:12 Aripiprazole 10 Mg Tablet PO 15 mg QPM CARLOS Administration Atorvastatin Calcium 10 mg 06/15/25 18:00 06/15/25 17:13 Atorvastatin 10 Mg Tablet PO 10 mg QPM CARLOS Administration Clonazepam 0.5 mg 06/15/25 12:00 06/15/25 17:04 Clonazepam 0.5 Mg Tablet PO Not Given MoWeFr CARLOS Gabapentin 300 mg 06/15/25 16:25 06/15/25 17:13 Gabapentin 300 Mg Capsule PO 300 mg TID CARLOS Administration Heparin Sodium (Porcine) 5,000 unit 06/15/25 16:25 06/15/25 17:14 Heparin 5,000 Unit/Ml Inj 1 Ml SUBCUT 5,000 unit Q12H CARLOS Administration Insulin Human Lispro 0 unit 06/15/25 18:00 06/15/25 17:46 Insulin Lispro 100 Unit/1 Ml SUBCUT Not Given TIDWM CARLOS Protocol Lurasidone HCl 60 mg 06/15/25 18:00 06/15/25 17:46 Lurasidone 20 Mg Tablet PO 60 mg BIDWM CARLOS Administration Pantoprazole Sodium 40 mg 06/15/25 16:25 06/15/25 17:14 Pantoprazole 40 Mg Sdv IVP 40 mg Q24H CARLOS Administration Trazodone HCl 250 mg 06/15/25 18:00 06/15/25 17:36 Trazodone 100 Mg Tablet PO Not Given QPM CARLOS PFSH Acute PFSH: Medical History (Updated 06/15/25 @ 15:13 by Enrique Valdes MD) Malignant hypertension ESRD (end stage renal disease) Hyperlipemia, mixed Acute renal failure Acute kidney injury superimposed on CKD Acute hyponatremia Hyponatremia Anemia Hypervolemia Tobacco abuse Diabetes Social History Smoking and tobacco/nicotine status: current every day tobacco/nicotine user cigarettes Alcohol intake: former Substance/Drug Use: former Vitals/I&O/Wt Last Vital Signs Temp 97.2 F L 06/15/25 19:30 Pulse 89 06/15/25 19:30 Resp 20 H 06/15/25 19:30 BP 170/93 06/15/25 19:30 Pulse Ox 97 06/15/25 17:44 O2 Del Method BiPAP 06/15/25 17:25 O2 Flow Rate 15 06/15/25 13:39 FiO2 40 06/15/25 17:44 06/15/25 06/15/25 06/15/25 06:59 14:59 22:59 Intake Total 750 / 750 Output Total 2715 / 2715 Balance -1965 / -1965 Weight last 48 hrs Weight 56.5 kg Weight 58.967 kg Weight 58.967 kg Physical Exam Narrative: lethargiC , on BIPAP + distress S1S2 RRR per report Lungs + crackles Abd soft , non tender Ext , no edema Data 06/15/25 14:06 06/15/25 14:06 Micro: Microbiology 06/15/25 14:06 Blood Culture - Preliminary Blood SPECIMEN COLLECTED 06/15/25 14:02 Blood Culture - Preliminary Blood SPECIMEN COLLECTED A&P Assessment and plan 1. End stage renal disease on dialysis: Plan: 1. End-stage renal disease: On MWF schedule, HD today and ultrafiltration as tolerated, up to 3 L. 2. Acute respiratory failure: Multifactorial in the setting of volume overload and pneumonia, UF with HD and antibiotics per primary team 3. NSTEMI, 4. Acute metabolic encephalopathy in the setting of pneumonia Patient evaluated using audiovisual cart. Time spent 40 minutes PDMP PDMP Reviewed: Not Reviewed Consult Attestations Medical Necessity Statement: per callie Coding Level of Care Code Acute Code for Chg Fwd Diagnoses End stage renal disease on dialysis N18.6; Z99.2
[2025-06-15 20:11] LABS: Hepatitis B Surface Antigen Non-Reactive (Nonreactive)
[2025-06-15 21:05] LABS: Troponin 5 6HR Delta 4.5 ng/L (0-12)
[2025-06-15 21:08] LABS: Troponin 5 6HR 101.5 ng/L (0-15)
[2025-06-15] MEDS: vancomycin 500 MG in sodium chloride 0.9% (plus) 100 ML 200 MG IV (21:25)
[2025-06-16] VITALS (60 sets, daily range): BP systolic 102–173; BP diastolic 56–99; PULSE 76–104; RESP 0–26; TEMP 36.5–36.9; O2SAT 90–100; BMI 19.0
[2025-06-16 03:57] LABS: Hematocrit 33.7 % (37-53); Hemoglobin 10.80 g/dL (11.27-16.99); Mean Corpuscular HGB Conc 32.0 g/dL (30-55); Mean Corpuscular Hemoglobin 29.6 pg (27-33); Mean Corpuscular Volume 92.3 fl (82-101); Nucleated Red Blood Cells % 0 %; Platelet Count 220 10^3/cmm (157-399); Red Blood Count 3.65 10^6/uL (3.85-5.65); White Blood Count 8.82 10^3/uL (3.29-11.43)
[2025-06-16] MEDS: heparin 5,000 unit/mL INJ 1 mL 5000 UNIT SUBCUT ×2 (04:04→17:48)
[2025-06-16 04:17] LABS: Alanine Aminotransferase 13 U/L (0-41); Albumin Level 3.3 g/dL (3.5-5.2); Alkaline Phosphatase 82 U/L (40-130); Anion Gap 17.4 (5-19); Aspartate Amino Transferase 22 U/L (0-40); Blood Urea Nitrogen 26 mg/dL (6-20); Calcium 9.4 mg/dL (8.5-10.5); Carbon Dioxide 26 mmol/L (22-29); Chloride 97 mmol/L (98-107); Creatinine Clr Calc Pharmacy 28.6594; Globulin 3.8 g/dL (1.3-4.6); Glucose 120 mg/dL (65-115); Osmolality Calculated 288 mOsm/kg (285-295); Potassium 4.4 mmol/L (3.5-5.1); Sodium 136 mmol/L (136-145); Total Protein 7.1 g/dL (6.6-8.7)
[2025-06-16 04:27] LABS: Procalcitonin 7.55 ng/mL (0-0.5)
[2025-06-16 04:52] LABS: NT Pro B Type Natriuretic Pept > 70000 pg/mL (0-125)
--- NOTE | 2025-06-16 07:00 | XR_ITS ---
WS: [id number] XR chest 1V portable [id number] REASON FOR EXAM: sob FINDINGS: The chest appears unchanged compared to 06/15/2025. Right IJ dialysis catheter remains in proper position. Mild cardiomegaly. Diffuse reticular and groundglass opacity throughout both lungs No new findings. XR/XR chest 1V portable [id number] IMPRESSION: Stable abnormal chest.
[2025-06-16] MEDS: morphine 4 mg/mL SDV 1 mL 2 MG IVP (09:05)
[2025-06-16] MEDS: methylPREDNISolone sod succ 40 mg/mL INJ IVP ×3 (09:05→23:20)
[2025-06-16] MEDS: meropenem 1,000 mg SDV 1000 MG IVP ×2 (11:21→22:42)
--- NOTE | 2025-06-16 12:35 | P.PN_ITS ---
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, does awaken, but falls back asleep, does not appear to be in respiratory distress, Vitals/I&O/Wt Last Vital Signs Temp 97.7 F 06/16/25 06:22 Pulse 81 06/16/25 11:45 Resp 16 06/16/25 11:37 BP 160/81 06/16/25 09:30 Pulse Ox 94 06/16/25 11:37 O2 Del Method Room Air 06/16/25 11:37 O2 Flow Rate 4 06/16/25 08:25 FiO2 30 06/15/25 23:41 06/15/25 06/16/25 06/16/25 22:59 06:59 14:59 Intake Total 850 / 850 Output Total 2715 / 2715 Balance -1865 / -1865 Weight last 48 hrs Weight 56.7 kg Weight 56.5 kg Weight 58.967 kg Weight 58.967 kg Physical Exam 2 Const: COMMON NORMALS: no acute distress OTHER: To person, not to place, not to time, he is able to smile for me, looks comfortable on 2 L Resp: COMMON NORMALS: normal respiratory effort, No retractions and No use of accessory muscles AUSCULTATION: crackles and wheezes Cardio: COMMON NORMALS: regular rate, regular rhythm, S1 normal heart sound present and S2 normal heart sound present RATE: regular rate RHYTHM: r egular rhythm HEART SOUNDS: S1 normal heart sound present and S2 normal heart sound present GI: COMMON NORMALS: Normal to inspection, nondistended, normoactive bowel sounds present and non-tender Extremity: COMMON NORMALS: no calf tenderness and no pedal edema Neuro: OTHER: Does not follow neurologic testing, but does move bilateral upper and lower extremities, Data 06/16/25 03:49 06/16/25 03:49 Micro: Microbiology 06/15/25 14:06 Blood Culture - Preliminary Blood SPECIMEN COLLECTED 06/15/25 14:02 Blood Culture - Preliminary Blood SPECIMEN COLLECTED A&P Assessment and plan 1. Acute hypoxic respiratory failure: 2. Sepsis: 3. Bilateral pneumonia: 4. ARDS (adult respiratory distress syndrome): 5. Pulmonary edema: 6. ESRD (end stage renal disease): 7. Dialysis patient: 8. NSTEMI (non-ST elevated myocardial infarction): 9. Intellectual disability: 10. Diabetes mellitus with hyperglycemia: 11. Type 1 diabetes mellitus with chronic kidney disease on chronic dialysis: 12. Aspiration pneumonia: Plan: Acute hypoxic respiratory failure -With evidence of acute respiratory distress - Multifactorial - Component of pneumonia, bilateral, history of aspiration pneumonia, aspiration pneumonitis - Concerns for fluid overload, pulmonary edema, acute flash pulmonary edema CT angio of the chest CT/CT angio chest PE protcl [id number] IMPRESSION: 1. No pulmonary embolism. 2. Extensive multifocal pulmonary consolidation throughout both lungs. More dense focal consolidation extend to the periphery at the lung bases, greatest on the LEFT. Suspect cardiogenic pulmonary edema with superimposed pneumonia and/or atelectasis at the bases. Differential includes ARDS, pulmonary hemorrhage and noncardiogenic pulmonary edema. 3. Diffuse soft tissue anasarca. 4. Moderate cardiomegaly. Plan -Admit to ICU - Currently on 2 L, keep n.p.o. - Low threshold for intubation - Vancomycin - Meropenem - Solu-Medrol 125 mg followed by 40 mg IV every 8 hours - Status post urgent dialysis yesterday, appears euvolemic, -2.7 L -DuoNeb -Budesonide - Sputum culture - Blood cultures - Monitor respiratory status closely - Full code - Lovenox for DVT prophylaxis Sepsis - Sepsis features met given acute respiratory failure, pneumonia on chest x-ray, NSTEMI NSTEMI, serial EKGs, serial troponins, telemetry monitoring Acute encephalopathy - Multifactorial from pneumonia, sepsis Intellectual disability History of aspiration, aspiration pneumonitis, keep n.p.o. PDMP PDMP Reviewed: Not Reviewed Attestations 2 Medical Necessity Statement*: Patient requires hospitalization for acute respiratory failure, pneumonia, fluid overload, acute respiratory distress syndrome, sepsis Diagnoses Acute hypoxic respiratory failure J96.01 Sepsis A41.9 Bilateral pneumonia J18.9 ARDS (adult respiratory distress syndrome) J80 Pulmonary edema J81.1 ESRD (end stage renal disease) N18.6 Dialysis patient Z99.2 NSTEMI (non-ST elevated myocardial infarction) I21.4 Intellectual disability F79 Diabetes mellitus with hyperglycemia E11.65 Type 1 diabetes mellitus with chronic kidney disease on chronic dialysis E10.22; N18.6; Z99.2 Chronic kidney disease stage: on chronic dialysis Diabetes mellitus complication detail: with chronic kidney disease Diabetes mellitus complication status: with kidney complications Aspiration pneumonia J69.0
[2025-06-16] MEDS: pantoprazole 40 mg SDV IVP (17:48)
[2025-06-16] MEDS: ATORVASTATIN 10 MG TABLET PO (17:50)
--- NOTE | 2025-06-16 18:23 | P.PN_ITS ---
Subjective 2 Subjective: no new complaints Medications: Reviewed: Yes Vitals/I&O/Wt Last Vital Signs Temp 97.7 F 06/16/25 06:22 Pulse 78 06/16/25 16:00 Resp 14 06/16/25 16:00 BP 138/79 06/16/25 16:00 Pulse Ox 94 06/16/25 16:00 O2 Del Method Room Air 06/16/25 15:30 O2 Flow Rate 4 06/16/25 08:25 FiO2 30 06/15/25 23:41 Weight last 48 hrs Weight 56.7 kg Weight 56.5 kg Weight 58.967 kg Weight 58.967 kg Physical Exam 2 Narrative: lethargiC , on BIPAP + distress S1S2 RRR per report Lungs + crackles Abd soft , non tender Ext , no edema Data 06/16/25 03:49 06/16/25 03:49 Micro: Microbiology 06/15/25 14:02 Blood Culture - Preliminary Blood NEGATIVE TO DATE 06/15/25 14:06 Blood Culture - Preliminary Blood NEGATIVE TO DATE A&P Assessment and plan 1. End stage renal disease on dialysis: Plan: 1. End-stage renal disease: On MWF schedule, HD tomorrow and ultrafiltration as tolerated, up to 3 L. 2. Acute respiratory failure: Multifactorial in the setting of volume overload and pneumonia, UF with HD and antibiotics per primary team 3. NSTEMI, 4. Acute metabolic encephalopathy in the setting of pneumonia Patient evaluated using audiovisual cart. Time spent 40 minutes PDMP PDMP Reviewed: Not Reviewed Attestations 2 Medical Necessity Statement*: per medicien Coding Level of Care Code Acute Code for Chg Fwd Diagnoses End stage renal disease on dialysis N18.6; Z99.2
[2025-06-17] VITALS (56 sets, daily range): BP systolic 101–162; BP diastolic 56–93; PULSE 72–94; RESP 0–23; TEMP 36.4–37.1; O2SAT 94–100
[2025-06-17 04:51] LABS: Hematocrit 32.6 % (37-53); Hemoglobin 10.30 g/dL (11.27-16.99); Mean Corpuscular HGB Conc 31.6 g/dL (30-55); Mean Corpuscular Hemoglobin 29.5 pg (27-33); Mean Corpuscular Volume 93.4 fl (82-101); Nucleated Red Blood Cells % 0 %; Platelet Count 243 10^3/cmm (157-399); Red Blood Count 3.49 10^6/uL (3.85-5.65); White Blood Count 5.36 10^3/uL (3.29-11.43)
[2025-06-17] MEDS: heparin 5,000 unit/mL INJ 1 mL 5000 UNIT SUBCUT ×2 (05:08→15:40)
[2025-06-17 05:23] LABS: Procalcitonin 10.09 ng/mL (0-0.5)
[2025-06-17 05:25] LABS: Alanine Aminotransferase 12 U/L (0-41); Albumin Level 3.2 g/dL (3.5-5.2); Alkaline Phosphatase 72 U/L (40-130); Anion Gap 17.1 (5-19); Aspartate Amino Transferase 19 U/L (0-40); Blood Urea Nitrogen 51 mg/dL (6-20); Calcium 9.0 mg/dL (8.5-10.5); Carbon Dioxide 25 mmol/L (22-29); Chloride 99 mmol/L (98-107); Creatinine Clr Calc Pharmacy 18.9000; Globulin 3.5 g/dL (1.3-4.6); Glucose 170 mg/dL (65-115); Osmolality Calculated 300 mOsm/kg (285-295); Potassium 5.1 mmol/L (3.5-5.1); Sodium 136 mmol/L (136-145); Total Protein 6.7 g/dL (6.6-8.7)
[2025-06-17 06:15] LABS: NT Pro B Type Natriuretic Pept > 70000 pg/mL (0-125)
[2025-06-17] MEDS: methylPREDNISolone sod succ 40 mg/mL INJ IVP ×2 (08:32→15:40)
[2025-06-17] MEDS: heparin, porcine 1,000 unit/mL INJ 10 mL 1000 UNIT IV (08:45)
[2025-06-17] MEDS: meropenem 1,000 mg SDV 1000 MG IVP (11:59)
[2025-06-17 13:31] LABS: Estmated Average Glucose 140; Hemoglobin A1C 6.5 % (4.0-6.0)
--- NOTE | 2025-06-17 15:15 | P.PN_ITS ---
Subjective 2 Subjective: Patient was seen this morning, currently alert to person, not place, to time he does not follow commands, currently on nasal cannula, receiving dialysis, he can follow some commands such as shaking the head Vitals/I&O/Wt Last Vital Signs Temp 98.6 F 06/17/25 12:12 Pulse 84 06/17/25 13:48 Resp 14 06/17/25 12:44 BP 118/91 06/17/25 12:30 Pulse Ox 99 06/17/25 12:44 O2 Del Method Room Air 06/17/25 12:44 O2 Flow Rate 4 06/16/25 08:25 FiO2 30 06/15/25 23:41 06/17/25 06/17/25 06/17/25 06:59 14:59 22:59 Intake Total 540 / 540 Output Total 3600 / 3600 Balance -3060 / -3060 Weight last 48 hrs Weight 51.8 kg Weight 56.7 kg Weight 56.7 kg Weight 56.5 kg Weight 58.967 kg Physical Exam 2 Const: COMMON NORMALS: no acute distress ORIENTATION/CONSCIOUSNESS: Yes awake, Yes oriented to person and Yes confused; not oriented to place and not oriented to time Chest: OTHER: Right chest port Resp: COMMON NORMALS: normal respiratory effort, No retractions and No use of accessory muscles AUSCULTATION: rhonchi and wheezes Cardio: COMMON NORMALS: regular rate, regular rhythm, S1 normal heart sound present and S2 normal heart sound present RATE: regular rate RHYTHM: r egular rhythm HEART SOUNDS: S1 normal heart sound present and S2 normal heart sound present GI: COMMON NORMALS: Normal to inspection, nondistended, normoactive bowel sounds present and non-tender Extremity: COMMON NORMALS: no pedal edema Neuro: SENSORIUM/ORIENTATION: Yes oriented to person, No oriented to place and No oriented to time Data 06/17/25 04:36 06/17/25 04:36 Micro: Microbiology 06/15/25 14:02 Blood Culture - Preliminary Blood NEGATIVE TO DATE 06/15/25 14:06 Blood Culture - Preliminary Blood NEGATIVE TO DATE A&P Assessment and plan 1. Acute hypoxic respiratory failure: 2. Sepsis: 3. Bilateral pneumonia: 4. ARDS (adult respiratory distress syndrome): 5. Pulmonary edema: 6. ESRD (end stage renal disease): 7. Dialysis patient: 8. NSTEMI (non-ST elevated myocardial infarction): 9. Intellectual disability: 10. Diabetes mellitus with hyperglycemia: 11. Type 1 diabetes mellitus with chronic kidney disease on chronic dialysis: 12. Aspiration pneumonia: Plan: Acute hypoxic respiratory failure -With evidence of acute respiratory distress - Multifactorial - Component of pneumonia, bilateral, history of aspiration pneumonia, aspiration pneumonitis - Concerns for fluid overload, pulmonary edema, acute flash pulmonary edema CT angio of the chest CT/CT angio chest PE protcl [id number] IMPRESSION: 1. No pulmonary embolism. 2. Extensive multifocal pulmonary consolidation throughout both lungs. More dense focal consolidation extend to the periphery at the lung bases, greatest on the LEFT. Suspect cardiogenic pulmonary edema with superimposed pneumonia and/or atelectasis at the bases. Differential includes ARDS, pulmonary hemorrhage and noncardiogenic pulmonary edema. 3. Diffuse soft tissue anasarca. 4. Moderate cardiomegaly. Plan -Admit to ICU - Currently on Nasal cannula, keep n.p.o. - Vancomycin - Meropenem - Solu-Medrol 40 mg IV every 8 hours - Receiving dialysis today -DuoNeb -Budesonide - Sputum culture - Blood cultures - Monitor respiratory status closely - Full code - Lovenox for DVT prophylaxis Sepsis - Sepsis features met given acute respiratory failure, pneumonia on chest x-ray, NSTEMI NSTEMI, serial EKGs, serial troponins, telemetry monitoring Acute encephalopathy - Multifactorial from pneumonia, sepsis Intellectual disability History of aspiration, aspiration pneumonitis, keep n.p.o. speech therapy eval PDMP PDMP Reviewed: Not Reviewed Attestations 2 Medical Necessity Statement*: Patient requires hospitalization for acute hypoxic respiratory failure, acute respiratory distress secondary to fluid overload, pneumonia Diagnoses Acute hypoxic respiratory failure J96.01 Sepsis A41.9 Bilateral pneumonia J18.9 ARDS (adult respiratory distress syndrome) J80 Pulmonary edema J81.1 ESRD (end stage renal disease) N18.6 Dialysis patient Z99.2 NSTEMI (non-ST elevated myocardial infarction) I21.4 Intellectual disability F79 Diabetes mellitus with hyperglycemia E11.65 Type 1 diabetes mellitus with chronic kidney disease on chronic dialysis E10.22; N18.6; Z99.2 Chronic kidney disease stage: on chronic dialysis Diabetes mellitus complication detail: with chronic kidney disease Diabetes mellitus complication status: with kidney complications Aspiration pneumonia J69.0
[2025-06-17] MEDS: pantoprazole 40 mg SDV IVP (15:40)
--- NOTE | 2025-06-17 15:54 | P.PN_ITS ---
Subjective 2 Subjective: getting HD Medications: Reviewed: Yes Vitals/I&O/Wt Last Vital Signs Temp 98.6 F 06/17/25 12:12 Pulse 84 06/17/25 13:48 Resp 14 06/17/25 12:44 BP 118/91 06/17/25 12:30 Pulse Ox 99 06/17/25 12:44 O2 Del Method Room Air 06/17/25 12:44 O2 Flow Rate 4 06/16/25 08:25 FiO2 30 06/15/25 23:41 06/17/25 06/17/25 06/17/25 06:59 14:59 22:59 Intake Total 540 / 540 Output Total 3600 / 3600 Balance -3060 / -3060 Weight last 48 hrs Weight 51.8 kg Weight 56.7 kg Weight 56.7 kg Weight 56.5 kg Weight 58.967 kg Physical Exam 2 Narrative: lethargiC , on BIPAP + distress S1S2 RRR per report Lungs + crackles Abd soft , non tender Ext , no edema Data 06/17/25 04:36 06/17/25 04:36 Micro: Microbiology 06/15/25 14:02 Blood Culture - Preliminary Blood NEGATIVE TO DATE 06/15/25 14:06 Blood Culture - Preliminary Blood NEGATIVE TO DATE A&P Assessment and plan 1. End stage renal disease on dialysis: Plan: 1. End-stage renal disease: On MWF schedule, HD today and ultrafiltration as tolerated, up to 3 L. 2. Acute respiratory failure: Multifactorial in the setting of volume overload and pneumonia, UF with HD and antibiotics per primary team 3. NSTEMI, 4. Acute metabolic encephalopathy in the setting of pneumonia Patient evaluated using audiovisual cart. Time spent 40 minutes PDMP PDMP Reviewed: Not Reviewed Attestations 2 Medical Necessity Statement*: per ninaca Coding Level of Care Code Acute Code for Chg Fwd Diagnoses End stage renal disease on dialysis N18.6; Z99.2
[2025-06-17] MEDS: ATORVASTATIN 10 MG TABLET PO (17:38)
[2025-06-17] MEDS: vancomycin 500 MG in sodium chloride 0.9% (plus) 100 ML 200 MG IV (19:42)
[2025-06-18] VITALS (28 sets, daily range): BP systolic 114–165; BP diastolic 61–93; PULSE 71–86; RESP 4–23; TEMP 36.3–36.9; O2SAT 92–100
[2025-06-18] MEDS: methylPREDNISolone sod succ 40 mg/mL INJ IVP ×4 (00:21→23:27)
[2025-06-18] MEDS: meropenem 1,000 mg SDV 1000 MG IVP ×3 (00:21→23:26)
[2025-06-18] MEDS: morphine 4 mg/mL SDV 1 mL 2 MG IVP (01:12)
[2025-06-18 04:03] LABS: Hematocrit 37.7 % (37-53); Hemoglobin 12.10 g/dL (11.27-16.99); Mean Corpuscular HGB Conc 32.1 g/dL (30-55); Mean Corpuscular Hemoglobin 29.7 pg (27-33); Mean Corpuscular Volume 92.4 fl (82-101); Nucleated Red Blood Cells % 0 %; Platelet Count 219 10^3/cmm (157-399); Red Blood Count 4.08 10^6/uL (3.85-5.65); White Blood Count 4.89 10^3/uL (3.29-11.43)
[2025-06-18] MEDS: heparin 5,000 unit/mL INJ 1 mL 5000 UNIT SUBCUT ×2 (04:04→15:34)
[2025-06-18 04:30] LABS: Alanine Aminotransferase 17 U/L (0-41); Albumin Level 3.4 g/dL (3.5-5.2); Alkaline Phosphatase 88 U/L (40-130); Aspartate Amino Transferase 28 U/L (0-40); Blood Urea Nitrogen 38 mg/dL (6-20); Calcium 9.3 mg/dL (8.5-10.5); Carbon Dioxide 22 mmol/L (22-29); Chloride 97 mmol/L (98-107); Creatinine Clr Calc Pharmacy 23.2436; Globulin 3.6 g/dL (1.3-4.6); Glucose 208 mg/dL (65-115); Osmolality Calculated 293 mOsm/kg (285-295); Sodium 134 mmol/L (136-145); Total Protein 7.0 g/dL (6.6-8.7)
[2025-06-18 04:32] LABS: Anion Gap 19.9 (5-19); Potassium 4.9 mmol/L (3.5-5.1)
[2025-06-18 04:38] LABS: Procalcitonin 8.91 ng/mL (0-0.5)
[2025-06-18 05:06] LABS: NT Pro B Type Natriuretic Pept > 70000 pg/mL (0-125)
--- NOTE | 2025-06-18 05:28 | PC.NURSE ---
Shift summary: Patient had very minimal sleep and hollered out all night. Patient was repositioned, brief changed when wet, snacks and drink offered, pain addressed, and any potential causes for a lack of rest or distress. Nothing seemed to help relax patient. Patient also displaced IV from right hand when upset. IV was intact when examined.
--- NOTE | 2025-06-18 13:55 | P.PN_ITS ---
Subjective 2 Subjective: Patient was seen this morning, no family members/caregivers at bedside, he is much more alert and awake much more vocal, he is enjoying his meal with nursing staff at bedside, he is able to cough for me, I cannot notice any choking or coughing with his meals, it is difficult to make out what he is exactly same, but he denies any belly pain, denies any shortness of breath, he shakes his head no to those questions Vitals/I&O/Wt Last Vital Signs Temp 97.3 F L 06/18/25 07:00 Pulse 84 06/18/25 12:00 Resp 18 06/18/25 12:00 BP 114/69 06/18/25 12:00 Pulse Ox 99 06/18/25 12:00 O2 Del Method Room Air 06/18/25 12:00 O2 Flow Rate 4 06/16/25 08:25 FiO2 30 06/15/25 23:41 06/17/25 06/18/25 06/18/25 22:59 06:59 14:59 Intake Total 580 / 1120 160 / 1280 360 / 360 Balance 580 / -2480 160 / -2320 360 / 360 Weight last 48 hrs Weight 52 kg Weight 51.8 kg Weight 56.7 kg Physical Exam 2 Const: COMMON NORMALS: no acute distress and patient oriented x3 Resp: COMMON NORMALS: normal respiratory effort, No retractions and No use of accessory muscles AUSCULTATION: crackles and wheezes Cardio: COMMON NORMALS: regular rate, regular rhythm, S1 normal heart sound present and S2 normal heart sound present RATE: regular rate RHYTHM: r egular rhythm HEART SOUNDS: S1 normal heart sound present and S2 normal heart sound present GI: COMMON NORMALS: Normal to inspection, nondistended, normoactive bowel sounds present and non-tender Extremity: COMMON NORMALS: no pedal edema Neuro: COMMON NORMALS: patient oriented x3 Psych: COMMON NORMALS: mental status grossly normal Data 06/18/25 03:50 06/18/25 03:50 A&P Assessment and plan 1. Acute hypoxic respiratory failure: 2. Sepsis: 3. Bilateral pneumonia: 4. ARDS (adult respiratory distress syndrome): 5. Pulmonary edema: 6. ESRD (end stage renal disease): 7. Dialysis patient: 8. NSTEMI (non-ST elevated myocardial infarction): 9. Intellectual disability: 10. Diabetes mellitus with hyperglycemia: 11. Type 1 diabetes mellitus with chronic kidney disease on chronic dialysis: 12. Aspiration pneumonia: Plan: Acute hypoxic respiratory failure -With evidence of acute respiratory distress - Multifactorial - Component of pneumonia, bilateral, history of aspiration pneumonia, aspiration pneumonitis - Concerns for fluid overload, pulmonary edema, acute flash pulmonary edema CT angio of the chest CT/CT angio chest PE protcl [id number] IMPRESSION: 1. No pulmonary embolism. 2. Extensive multifocal pulmonary consolidation throughout both lungs. More dense focal consolidation extend to the periphery at the lung bases, greatest on the LEFT. Suspect cardiogenic pulmonary edema with superimposed pneumonia and/or atelectasis at the bases. Differential includes ARDS, pulmonary hemorrhage and noncardiogenic pulmonary edema. 3. Diffuse soft tissue anasarca. 4. Moderate cardiomegaly. - Clinically improved, monitor room air Plan -Admit to ICU - Currently on room air - Vancomycin - Meropenem - Solu-Medrol 40 mg IV every 8 hours - Receiving dialysis yesterday -DuoNeb -Budesonide - Sputum culture - Blood cultures - Monitor respiratory status closely - Full code - Lovenox for DVT prophylaxis Aspiration risk - Aspiration risk remains high - Meals should be supervised -Dysphagia level 4 diet, moderately thickened -Speech therapy Sepsis, resolved - Sepsis features met given acute respiratory failure, pneumonia on chest x-ray, NSTEMI NSTEMI, serial EKGs, serial troponins, telemetry monitoring Acute encephalopathy - Multifactorial from pneumonia, sepsis Intellectual disability Plan for today continue IV antibiotics continue IV steroids, plan on dialysis tomorrow, moved to medical floors PDMP PDMP Reviewed: Not Reviewed Attestations 2 Medical Necessity Statement*: Patient requires hospitalization for acute hypoxic respiratory failure secondary to pneumonia, fluid overload, Diagnoses Acute hypoxic respiratory failure J96.01 Sepsis A41.9 Bilateral pneumonia J18.9 ARDS (adult respiratory distress syndrome) J80 Pulmonary edema J81.1 ESRD (end stage renal disease) N18.6 Dialysis patient Z99.2 NSTEMI (non-ST elevated myocardial infarction) I21.4 Intellectual disability F79 Diabetes mellitus with hyperglycemia E11.65 Type 1 diabetes mellitus with chronic kidney disease on chronic dialysis E10.22; N18.6; Z99.2 Chronic kidney disease stage: on chronic dialysis Diabetes mellitus complication detail: with chronic kidney disease Diabetes mellitus complication status: with kidney complications Aspiration pneumonia J69.0
[2025-06-18] MEDS: pantoprazole 40 mg SDV IVP (15:34)
[2025-06-18] MEDS: ATORVASTATIN 10 MG TABLET PO (17:34)
--- NOTE | 2025-06-18 20:18 | P.PN_ITS ---
Subjective 2 Subjective: no new c/o Medications: Reviewed: Yes Vitals/I&O/Wt Last Vital Signs Temp 97.9 F 06/18/25 20:00 Pulse 80 06/18/25 20:00 Resp 18 06/18/25 20:00 BP 136/74 06/18/25 20:00 Pulse Ox 98 06/18/25 20:00 O2 Del Method Room Air 06/18/25 20:00 O2 Flow Rate 4 06/16/25 08:25 FiO2 30 06/15/25 23:41 06/18/25 06/18/25 06/18/25 06:59 14:59 22:59 Intake Total 160 / 1280 360 / 360 240 / 600 Balance 160 / -2320 360 / 360 240 / 600 Weight last 48 hrs Weight 52 kg Weight 51.8 kg Weight 56.7 kg Physical Exam 2 Narrative: lethargiC , on BIPAP + distress S1S2 RRR per report Lungs + crackles Abd soft , non tender Ext , no edema Data 06/18/25 03:50 06/18/25 03:50 A&P Assessment and plan 1. End stage renal disease on dialysis: Plan: 1. End-stage renal disease: On MWF schedule, HD tomorrow and ultrafiltration as tolerated, up to 3 L. 2. Acute respiratory failure: Multifactorial in the setting of volume overload and pneumonia, UF with HD and antibiotics per primary team 3. NSTEMI, 4. Acute metabolic encephalopathy in the setting of pneumonia Patient evaluated using audiovisual cart. Time spent 40 minutes PDMP PDMP Reviewed: Not Reviewed Attestations 2 Medical Necessity Statement*: per callie Coding Level of Care Code Acute Code for Chg Fwd Diagnoses End stage renal disease on dialysis N18.6; Z99.2
[2025-06-19] VITALS (16 sets, daily range): BP systolic 118–133; BP diastolic 68–76; PULSE 64–83; RESP 15–19; TEMP 36.4–37; O2SAT 94–98
[2025-06-19] MEDS: heparin 5,000 unit/mL INJ 1 mL 5000 UNIT SUBCUT (04:24)
[2025-06-19 04:44] LABS: Hematocrit 35.9 % (37-53); Hemoglobin 11.40 g/dL (11.27-16.99); Mean Corpuscular HGB Conc 31.8 g/dL (30-55); Mean Corpuscular Hemoglobin 29.2 pg (27-33); Mean Corpuscular Volume 92.1 fl (82-101); Nucleated Red Blood Cells % 0 %; Platelet Count 237 10^3/cmm (157-399); Red Blood Count 3.90 10^6/uL (3.85-5.65); White Blood Count 6.61 10^3/uL (3.29-11.43)
[2025-06-19 05:10] LABS: Alanine Aminotransferase 13 U/L (0-41); Albumin Level 3.0 g/dL (3.5-5.2); Alkaline Phosphatase 79 U/L (40-130); Anion Gap 18.7 (5-19); Aspartate Amino Transferase 17 U/L (0-40); Blood Urea Nitrogen 51 mg/dL (6-20); Calcium 9.1 mg/dL (8.5-10.5); Carbon Dioxide 24 mmol/L (22-29); Chloride 94 mmol/L (98-107); Creatinine Clr Calc Pharmacy 17.3333; Globulin 3.3 g/dL (1.3-4.6); Glucose 181 mg/dL (65-115); Osmolality Calculated 292 mOsm/kg (285-295); Potassium 4.7 mmol/L (3.5-5.1); Sodium 132 mmol/L (136-145); Total Protein 6.3 g/dL (6.6-8.7)
[2025-06-19 05:44] LABS: NT Pro B Type Natriuretic Pept > 70000 pg/mL (0-125)
--- NOTE | 2025-06-19 07:00 | XRR_ITS ---
PROCEDURE INFORMATION: Exam: XR Chest Exam date and time: 06/19/2025 5:12 AM Age: 55 years old Clinical indication: Shortness of breath; Additional info: SOB TECHNIQUE: Imaging protocol: Radiologic exam of the chest. Views: 1 view. COMPARISON: CR XR chest 1V portable [id number] 06/16/2025 8:04 AM FINDINGS: Tubes, catheters and devices: There is a right internal jugular vein tunneled dialysis catheter with the distal tip of the catheter in the inferior aspect of the right atrium. Lungs: Persistent but significantly improved pulmonary vascular congestion/edema. Pleural spaces: Unremarkable. No pleural effusion. No pneumothorax. Heart/Mediastinum: Stable cardiomegaly. Bones/joints: Unremarkable. XR/XR chest 1V portable [id number] IMPRESSION: 1. Persistent but significantly improved pulmonary vascular congestion/edema. 2. Stable cardiomegaly.
--- NOTE | 2025-06-19 07:21 | P.PN_ITS ---
Subjective 2 Subjective: The patient was seen and examined. The patient has no complaints however he is not able to verbalize well. He mumbles. He is able to eat and move he is weak and lethargic in bed. He wants to lay flat she denies shortness of breath. Medications: Reviewed: Yes Medication Review Details: Current Medications Acetaminophen (Acetaminophen 325 Mg Tablet) 650 mg PO Q6H PRN PRN Reason: Mild/Mod Pain Or Temp >/= 101 Albuterol/Ipratropium (Ipratropium-Albuterol 3 Ml Neb) 3 ml INHALATION QID.RESPIRATORY PRN PRN Reason: SHORTNESS OF BREATH Last Admin: 06/17/25 19:36 Dose: 3 ml Amlodipine Besylate (Amlodipine 10 Mg Tablet) 10 mg PO DAILY@09 [facility] Last Admin: 06/18/25 08:11 Dose: 10 mg Aripiprazole (Aripiprazole 10 Mg Tablet) 15 mg PO QPM [facility] Last Admin: 06/18/25 17:33 Dose: 15 mg Aspirin (Aspirin 325 Mg Ec Tablet) 325 mg PO DAILY [facility] Last Admin: 06/18/25 08:11 Dose: 325 mg Atorvastatin Calcium (Atorvastatin 10 Mg Tablet) 10 mg PO QPM [facility] Last Admin: 06/18/25 17:34 Dose: 10 mg Benztropine Mesylate (Benztropine 1 Mg Tablet) 1 mg PO BID@ [facility] Last Admin: 06/18/25 20:01 Dose: 1 mg Budesonide (Budesonide 0.5 Mg/2 Ml Neb) 0.5 mg INHALATION BID.RESPIRATORY PRN PRN Reason: SHORTNESS OF BREATH Last Admin: 06/17/25 19:37 Dose: 0.5 mg Carvedilol (Carvedilol 12.5 Mg Tablet) 12.5 mg PO BID [facility] Last Admin: 06/18/25 17:34 Dose: 12.5 mg Clonazepam (Clonazepam 0.5 Mg Tablet) 0.5 mg PO MoWeFr [facility] Last Admin: 06/17/25 11:59 Dose: 0.5 mg Fenofibrate (Fenofibrate 145 Mg Tablet) 160 mg PO DAILY [facility] Last Admin: 06/18/25 08:10 Dose: 160 mg Gabapentin (Gabapentin 300 Mg Capsule) 300 mg PO TID [facility] Last Admin: 06/18/25 20:01 Dose: 300 mg Glucagon (Glucagon 1 Mg/Ml Kit 1 Ml) 1 mg IM ONCE PRN; Protocol PRN Reason: Adult Acute Hypoglycemia Nursing Prot. Heparin Sodium (Porcine) (Heparin 5,000 Unit/Ml Inj 1 Ml) 5,000 unit SUBCUT Q12H [facility] Last Admin: 06/19/25 04:24 Dose: 5,000 unit Sodium Chloride (Sodium Chloride 0.9%) 1,000 mls @ 0 mls/hr IV .Q0M PRN PRN Reason: hypotension or symptomatic Dextrose (D5w) 500 mls @ 0 mls/hr IV ONCE PRN; Protocol PRN Reason: Adult Acute Hypoglycemia Prot Dextrose (D10w) 125 mls @ 750 mls/hr IV PRN PRN; Protocol PRN Reason: Adult Acute Hypoglycemia Nursing Protocol Dextrose (D10w) 250 mls @ 1,000 mls/hr IV PRN PRN; Protocol PRN Reason: Adult Acute Hypoglycemia Nursing Protocol Sodium Chloride (Sodium Chloride 0.9%) 1,000 mls @ 0 mls/hr IV .Q0M PRN PRN Reason: hypotension or symptomatic Albumin Human (Albumin) 12.5 gm in 50 mls @ 60 mls/hr IV PRN PRN PRN Reason: Hypotension and/or symptomatic Sodium Chloride (Sodium Chloride 0.9%) 1,000 mls @ 0 mls/hr IV .Q0M PRN PRN Reason: hypotension or symptomatic Albumin Human (Albumin) 12.5 gm in 50 mls @ 60 mls/hr IV PRN PRN PRN Reason: Hypotension and/or symptomatic Insulin Human Lispro (Insulin Lispro 100 Unit/1 Ml) 0 unit SUBCUT TIDWM [facility]; Protocol Last Admin: 06/18/25 17:33 Dose: 4 unit Isosorbide Mononitrate (Isosorbide Mononitrate Er 30 Mg Tablet) 60 mg PO DAILY [facility] Last Admin: 06/18/25 08:10 Dose: 60 mg Lanolin (Lanolin Oint 7 Gm) 1 applic TOPICAL PRN PRN PRN Reason: DRYNESS Last Admin: 06/18/25 13:57 Dose: 1 applic Lisinopril (Lisinopril 20 Mg Tablet) 40 mg PO DAILY [facility] Last Admin: 06/18/25 08:11 Dose: 40 mg Lurasidone HCl (Lurasidone 20 Mg Tablet) 60 mg PO BIDWM [facility] Last Admin: 06/18/25 17:33 Dose: 60 mg Meropenem (Meropenem 1,000 Mg Sdv) 1,000 mg IVP Q12H [facility]; Protocol Last Admin: 06/18/25 23:26 Dose: 1,000 mg Methylprednisolone Sodium Succinate (Methylprednisolone Sod Succ 40 Mg/Ml Inj) 40 mg IVP Q8H [facility] Last Admin: 06/18/25 23:27 Dose: 40 mg Morphine Sulfate (Morphine 4 Mg/Ml Sdv 1 Ml) 2 mg IVP Q4H PRN PRN Reason: SEVERE PAIN Last Admin: 06/18/25 01:12 Dose: 2 mg Naloxone HCl (Naloxone 0.4 Mg/Ml Sdv) 0.1 mg IVP Q2M PRN PRN Reason: OPIATERV Ondansetron HCl (Ondansetron 2 Mg/Ml Sdv 2 Ml) 4 mg IVP Q8H PRN PRN Reason: vomiting, or N/V if npo Pantoprazole Sodium (Pantoprazole 40 Mg Sdv) 40 mg IVP Q24H [facility] Last Admin: 06/18/25 15:34 Dose: 40 mg Trazodone HCl (Trazodone 100 Mg Tablet) 250 mg PO QPM [facility] Last Admin: 06/18/25 17:34 Dose: 250 mg Vancomycin HCl (Vancomycin 1,000 Mg Sdv (Pharmacy Mix)) 0 mg XX PRN PRN PRN Reason: Pharmacy to Dose Vitals/I&O/Wt Last Vital Signs Temp 97.7 F 06/19/25 05:00 Pulse 80 06/19/25 05:00 Resp 16 06/19/25 05:00 BP 127/72 06/19/25 05:00 Pulse Ox 96 06/19/25 05:00 O2 Del Method Room Air 06/18/25 20:00 O2 Flow Rate 4 06/16/25 08:25 FiO2 30 06/15/25 23:41 06/18/25 06/19/25 06/19/25 22:59 06:59 14:59 Intake Total 240 / 600 480 / 1080 Balance 240 / 600 480 / 1080 Weight last 48 hrs Weight 51.71 kg Weight 52 kg Weight 51.8 kg Physical Exam 2 Narrative: Signs noted well-controlled. Patient lying in bed no apparent distress. Patient has difficulty speaking. HEENT normocephalic atraumatic Neck is supple no JVP. Lungs good air movement bilaterally heart is regular Patient has right anterior chest wall permacath. Abdomen is soft positive bowel sounds nontender. Extremities have no edema. Neuro responsive moves interactive. Data 06/19/25 04:27 06/19/25 04:27 A&P Assessment and plan 1. End stage renal disease on dialysis: 55-year-old man pneumonia on multiple antibiotics. Please keep vancomycin level less than 19. Underlying history of intellectual disability lives in a residential, history of diabetes. Blood pressure well-controlled will hold amlodipine. End-stage renal disease dialysis today Anemia hemoglobin acceptable for a patient with ESRD Medications reviewed consider decreasing gabapentin and patient with ESRD Check vancomycin level. Patient was seen and examined with the aid of a nurse using audiovisual equipment with a telehealth visit. Plan: Dialysis today medical care as per the hospitalist. PDMP PDMP Reviewed: Not Reviewed Attestations 2 Medical Necessity Statement*: IV antibiotics. Time Spent in Patient Care: 16 - 35 minutes (>than 50% of time sp ent in counselling and/or direct pt care on unit) . Coding Level of Care Code Acute Code for Chg Fwd Diagnoses End stage renal disease on dialysis N18.6; Z99.2
[2025-06-19] MEDS: methylPREDNISolone sod succ 40 mg/mL INJ IVP ×2 (09:18→15:46)
--- NOTE | 2025-06-19 10:29 | PC.SLP ---
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
[2025-06-19] MEDS: meropenem 1,000 mg SDV 1000 MG IVP ×2 (11:15→23:02)
[2025-06-19] MEDS: pantoprazole 40 mg SDV IVP (15:46)
--- NOTE | 2025-06-19 15:48 | P.PN_ITS ---
Subjective 2 Subjective: Patient was seen this morning, currently alert to person, he can follow commands he is able to smile for me, able to shake my hand, he is on room air, currently receiving dialysis Vitals/I&O/Wt Last Vital Signs Temp 98.6 F 06/19/25 12:00 Pulse 83 06/19/25 14:00 Resp 16 06/19/25 12:00 BP 133/71 06/19/25 12:00 Pulse Ox 94 06/19/25 08:43 O2 Del Method Room Air 06/19/25 08:43 O2 Flow Rate 4 06/16/25 08:25 FiO2 30 06/15/25 23:41 06/19/25 06/19/25 06/19/25 06:59 14:59 22:59 Intake Total 480 / 1080 540 / 540 Output Total 3300 / 3300 Balance 480 / 1080 -2760 / -2760 Weight last 48 hrs Weight 54.5 kg Weight 51.71 kg Weight 52 kg Physical Exam 2 Const: COMMON NORMALS: no acute distress ORIENTATION/CONSCIOUSNESS: Yes awake and Yes oriented to person; not oriented to place and not oriented to time Resp: COMMON NORMALS: normal respiratory effort, No retractions, No use of accessory muscles and clear to auscultation bilaterally AUSCULTATION: clear to auscultation bilaterally Cardio: COMMON NORMALS: regular rate, regular rhythm, S1 normal heart sound present and S2 normal heart sound present RATE: regular rate RHYTHM: r egular rhythm HEART SOUNDS: S1 normal heart sound present and S2 normal heart sound present GI: COMMON NORMALS: Normal to inspection, nondistended, normoactive bowel sounds present and non-tender Extremity: COMMON NORMALS: no pedal edema Neuro: SENSORIUM/ORIENTATION: Yes oriented to person, No oriented to place and No oriented to time Psych: COMMON NORMALS: mental status grossly normal Data 06/19/25 04:27 06/19/25 04:27 A&P Assessment and plan 1. Acute hypoxic respiratory failure: 2. Sepsis: 3. Bilateral pneumonia: 4. ARDS (adult respiratory distress syndrome): 5. Pulmonary edema: 6. ESRD (end stage renal disease): 7. Dialysis patient: 8. NSTEMI (non-ST elevated myocardial infarction): 9. Intellectual disability: 10. Diabetes mellitus with hyperglycemia: 11. Type 1 diabetes mellitus with chronic kidney disease on chronic dialysis: 12. Aspiration pneumonia: Plan: Acute hypoxic respiratory failure -With evidence of acute respiratory distress - Multifactorial - Component of pneumonia, bilateral, history of aspiration pneumonia, aspiration pneumonitis - Concerns for fluid overload, pulmonary edema, acute flash pulmonary edema CT angio of the chest CT/CT angio chest PE protcl [id number] IMPRESSION: 1. No pulmonary embolism. 2. Extensive multifocal pulmonary consolidation throughout both lungs. More dense focal consolidation extend to the periphery at the lung bases, greatest on the LEFT. Suspect cardiogenic pulmonary edema with superimposed pneumonia and/or atelectasis at the bases. Differential includes ARDS, pulmonary hemorrhage and noncardiogenic pulmonary edema. 3. Diffuse soft tissue anasarca. 4. Moderate cardiomegaly. - Clinically improved, monitor room air Plan -Admit to ICU - Currently on room air - Vancomycin - Meropenem - Solu-Medrol 40 mg IV every 8 hours - Receiving dialysis yesterday -DuoNeb -Budesonide - Sputum culture - Blood cultures - Monitor respiratory status closely - Full code - Lovenox for DVT prophylaxis Aspiration risk - Aspiration risk remains high - Meals should be supervised -Dysphagia level 4 diet, moderately thickened -Speech therapy Sepsis, resolved - Sepsis features met given acute respiratory failure, pneumonia on chest x-ray, NSTEMI NSTEMI, serial EKGs, serial troponins, telemetry monitoring Acute encephalopathy - Multifactorial from pneumonia, sepsis Intellectual disability Plan for today de-escalate steroids to prednisone 40 mg daily, de-escalate vancomycin, continue meropenem, continue dialysis, PDMP PDMP Reviewed: Not Reviewed Attestations 2 Medical Necessity Statement*: Patient requires hospitalization for fluid overload, pneumonia, Diagnoses Acute hypoxic respiratory failure J96.01 Sepsis A41.9 Bilateral pneumonia J18.9 ARDS (adult respiratory distress syndrome) J80 Pulmonary edema J81.1 ESRD (end stage renal disease) N18.6 Dialysis patient Z99.2 NSTEMI (non-ST elevated myocardial infarction) I21.4 Intellectual disability F79 Diabetes mellitus with hyperglycemia E11.65 Type 1 diabetes mellitus with chronic kidney disease on chronic dialysis E10.22; N18.6; Z99.2 Chronic kidney disease stage: on chronic dialysis Diabetes mellitus complication detail: with chronic kidney disease Diabetes mellitus complication status: with kidney complications Aspiration pneumonia J69.0
[2025-06-19] MEDS: morphine 4 mg/mL SDV 1 mL 2 MG IVP (16:20)
[2025-06-19] MEDS: ATORVASTATIN 10 MG TABLET PO (16:23)
[2025-06-20] VITALS (10 sets, daily range): BP systolic 115–142; BP diastolic 63–75; PULSE 73–87; RESP 13–18; TEMP 36.4–37.1; O2SAT 95–98
[2025-06-20] MEDS: heparin 5,000 unit/mL INJ 1 mL 5000 UNIT SUBCUT ×2 (03:52→17:49)
[2025-06-20 04:31] LABS: Hematocrit 36.6 % (37-53); Hemoglobin 11.80 g/dL (11.27-16.99); Mean Corpuscular HGB Conc 32.2 g/dL (30-55); Mean Corpuscular Hemoglobin 29.6 pg (27-33); Mean Corpuscular Volume 92.0 fl (82-101); Nucleated Red Blood Cells % 0 %; Platelet Count 215 10^3/cmm (157-399); Red Blood Count 3.98 10^6/uL (3.85-5.65); White Blood Count 4.46 10^3/uL (3.29-11.43)
[2025-06-20 04:54] LABS: Alanine Aminotransferase 15 U/L (0-41); Albumin Level 3.3 g/dL (3.5-5.2); Alkaline Phosphatase 82 U/L (40-130); Anion Gap 19.7 (5-19); Aspartate Amino Transferase 24 U/L (0-40); Blood Urea Nitrogen 44 mg/dL (6-20); Calcium 9.0 mg/dL (8.5-10.5); Carbon Dioxide 24 mmol/L (22-29); Chloride 96 mmol/L (98-107); Creatinine Clr Calc Pharmacy 18.1667; Globulin 2.6 g/dL (1.3-4.6); Glucose 232 mg/dL (65-115); Osmolality Calculated 299 mOsm/kg (285-295); Potassium 4.7 mmol/L (3.5-5.1); Sodium 135 mmol/L (136-145); Total Protein 5.9 g/dL (6.6-8.7)
[2025-06-20 05:27] LABS: NT Pro B Type Natriuretic Pept > 35000 pg/mL (0-125)
--- NOTE | 2025-06-20 07:32 | PM.PN ---
Subjective Subjective: Patient was seen and examined. The patient is upset he is awake alert no shortness of breath no chest pain no nausea vomiting or diarrhea. No edema Medications: Reviewed: Yes Medication Review Details: Current Medications Acetaminophen (Acetaminophen 325 Mg Tablet) 650 mg PO Q6H PRN PRN Reason: Mild/Mod Pain Or Temp >/= 101 Albuterol/Ipratropium (Ipratropium-Albuterol 3 Ml Neb) 3 ml INHALATION QID.RESPIRATORY PRN PRN Reason: SHORTNESS OF BREATH Last Admin: 06/17/25 19:36 Dose: 3 ml Aripiprazole (Aripiprazole 10 Mg Tablet) 15 mg PO QPM [facility] Last Admin: 06/19/25 16:23 Dose: 15 mg Aspirin (Aspirin 325 Mg Ec Tablet) 325 mg PO DAILY [facility] Last Admin: 06/19/25 09:18 Dose: 325 mg Atorvastatin Calcium (Atorvastatin 10 Mg Tablet) 10 mg PO QPM [facility] Last Admin: 06/19/25 16:23 Dose: 10 mg Benztropine Mesylate (Benztropine 1 Mg Tablet) 1 mg PO BID@ [facility] Last Admin: 06/19/25 20:45 Dose: 1 mg Budesonide (Budesonide 0.5 Mg/2 Ml Neb) 0.5 mg INHALATION BID.RESPIRATORY PRN PRN Reason: SHORTNESS OF BREATH Last Admin: 06/17/25 19:37 Dose: 0.5 mg Carvedilol (Carvedilol 12.5 Mg Tablet) 12.5 mg PO BID [facility] Last Admin: 06/19/25 16:23 Dose: 12.5 mg Clonazepam (Clonazepam 0.5 Mg Tablet) 0.5 mg PO MoWeFr [facility] Last Admin: 06/19/25 11:19 Dose: 0.5 mg Fenofibrate (Fenofibrate 145 Mg Tablet) 145 mg PO DAILY [facility] Last Admin: 06/19/25 09:20 Dose: 145 mg Gabapentin (Gabapentin 300 Mg Capsule) 300 mg PO TID [facility] Last Admin: 06/19/25 20:45 Dose: 300 mg Glucagon (Glucagon 1 Mg/Ml Kit 1 Ml) 1 mg IM ONCE PRN; Protocol PRN Reason: Adult Acute Hypoglycemia Nursing Prot. Heparin Sodium (Porcine) (Heparin 5,000 Unit/Ml Inj 1 Ml) 5,000 unit SUBCUT Q12H [facility] Last Admin: 06/20/25 03:52 Dose: 5,000 unit Sodium Chloride (Sodium Chloride 0.9%) 1,000 mls @ 0 mls/hr IV .Q0M PRN PRN Reason: hypotension or symptomatic Dextrose (D5w) 500 mls @ 0 mls/hr IV ONCE PRN; Protocol PRN Reason: Adult Acute Hypoglycemia Prot Dextrose (D10w) 125 mls @ 750 mls/hr IV PRN PRN; Protocol PRN Reason: Adult Acute Hypoglycemia Nursing Protocol Dextrose (D10w) 250 mls @ 1,000 mls/hr IV PRN PRN; Protocol PRN Reason: Adult Acute Hypoglycemia Nursing Protocol Sodium Chloride (Sodium Chloride 0.9%) 1,000 mls @ 0 mls/hr IV .Q0M PRN PRN Reason: hypotension or symptomatic Albumin Human (Albumin) 12.5 gm in 50 mls @ 60 mls/hr IV PRN PRN PRN Reason: Hypotension and/or symptomatic Sodium Chloride (Sodium Chloride 0.9%) 1,000 mls @ 0 mls/hr IV .Q0M PRN PRN Reason: hypotension or symptomatic Albumin Human (Albumin) 12.5 gm in 50 mls @ 60 mls/hr IV PRN PRN PRN Reason: Hypotension and/or symptomatic Insulin Human Lispro (Insulin Lispro 100 Unit/1 Ml) 0 unit SUBCUT TIDWM [facility]; Protocol Last Admin: 06/19/25 17:26 Dose: Not Given Isosorbide Mononitrate (Isosorbide Mononitrate Er 30 Mg Tablet) 60 mg PO DAILY [facility] Last Admin: 06/19/25 11:15 Dose: 60 mg Lanolin (Lanolin Oint 7 Gm) 1 applic TOPICAL PRN PRN PRN Reason: DRYNESS Last Admin: 06/18/25 13:57 Dose: 1 applic Lisinopril (Lisinopril 20 Mg Tablet) 40 mg PO DAILY [facility] Last Admin: 06/19/25 11:16 Dose: 40 mg Lurasidone HCl (Lurasidone 20 Mg Tablet) 60 mg PO BIDWM [facility] Last Admin: 06/19/25 16:22 Dose: 60 mg Meropenem (Meropenem 1,000 Mg Sdv) 1,000 mg IVP Q12H [facility]; Protocol Last Admin: 06/19/25 23:02 Dose: 1,000 mg Morphine Sulfate (Morphine 4 Mg/Ml Sdv 1 Ml) 2 mg IVP Q4H PRN PRN Reason: SEVERE PAIN Last Admin: 06/19/25 16:20 Dose: 2 mg Naloxone HCl (Naloxone 0.4 Mg/Ml Sdv) 0.1 mg IVP Q2M PRN PRN Reason: OPIATERV Ondansetron HCl (Ondansetron 2 Mg/Ml Sdv 2 Ml) 4 mg IVP Q8H PRN PRN Reason: vomiting, or N/V if npo Pantoprazole Sodium (Pantoprazole 40 Mg Sdv) 40 mg IVP Q24H [facility] Last Admin: 06/19/25 15:46 Dose: 40 mg Prednisone (Prednisone 20 Mg Tablet) 40 mg PO DAILY [facility] Trazodone HCl (Trazodone 100 Mg Tablet) 250 mg PO QPM [facility] Last Admin: 06/19/25 16:22 Dose: 250 mg Vitals/I&O/Wt Last Vital Signs Temp 97.6 F 06/20/25 07:28 Pulse 78 06/20/25 07:28 Resp 17 06/20/25 07:28 BP 142/75 06/20/25 07:28 Pulse Ox 95 06/20/25 07:28 O2 Del Method Room Air 06/20/25 07:28 O2 Flow Rate 4 06/16/25 08:25 FiO2 30 06/15/25 23:41 06/19/25 06/20/25 06/20/25 22:59 06:59 14:59 Intake Total 240 / 780 480 / 1260 Balance 240 / -2520 480 / -2040 Weight last 48 hrs Weight 54.431 kg Weight 54.5 kg Weight 51.71 kg Physical Exam Narrative: vital Signs noted well-controlled. Patient lying in bed no apparent distress. Patient is more awake he is talking appropriately. He is yelling and upset. HEENT normocephalic atraumatic Neck is supple no JVP. Lungs good air movement bilaterally heart is regular Patient has right anterior chest wall permacath. Abdomen is soft positive bowel sounds nontender. Extremities have no edema. Neuro responsive moves interactive, talking and moving. Data 06/20/25 04:11 06/20/25 04:11 A&P Assessment and plan 1. End stage renal disease on dialysis: 55-year-old man Underlying history of intellectual disability lives in a residential, history of diabetes. 1. Pneumonia patient on meropenem, patient received vancomycin yesterday. Please keep vancomycin level under 19. Steroids are being decreased. 2. ESRD dialysis Sunday and Sunday 3. Blood pressure well-controlled. 4. Diabetes monitor sugars per medicine. 5. Anemia hemoglobin acceptable for a patient with ESRD 6. Elevated BNP is improving. 7 TSH well-controlled 8. Can check PTH and vitamin D levels. medications reviewed Patient was seen and examined with the aid of a nurse using audiovisual equipment with a telehealth visit. Plan: Dialysis on a Sunday schedule. Antibiotics as the hospitalist. PDMP PDMP Reviewed: Not Reviewed Attestations Medical Necessity Statement*: As per hospitalist. Time Spent in Patient Care: 16 - 35 minutes (>than 50% of time spent in counselling and/or direct pt care on unit). Coding Level of Care Code Acute Code for Chg Fwd Diagnoses End stage renal disease on dialysis N18.6; Z99.2
--- NOTE | 2025-06-20 08:29 | XRR_ITS ---
PROCEDURE INFORMATION: Exam: XR Chest Exam date and time: 06/20/2025 8:43 AM Age: 55 years old Clinical indication: Shortness of breath; Prior surgery; Surgery date: 6+ months; Surgery type: Dialysis cath; Additional info: SOB TECHNIQUE: Imaging protocol: Radiologic exam of the chest. Views: 1 view. COMPARISON: CR (CHEST, ) 06/19/2025 5:12 AM FINDINGS: Tubes, catheters and devices: Large-bore right-sided central venous catheter is present with the tips in the right atrium. Lungs: No focal infiltrates are identified. Pleural spaces: Unremarkable. No pleural effusion. No pneumothorax. Heart/Mediastinum: There is cardiomegaly. Bones/joints: Unremarkable. Other findings: There is prominence of the vascularity. This is stable. XR/XR chest 1V portable [id number] IMPRESSION: Stable findings with cardiomegaly and increased prominence of the vascularity.
--- NOTE | 2025-06-20 11:03 | P.PN_ITS ---
Subjective 2 Subjective: Patient was seen this morning, currently alert to person, not to place, to time he is very vocal this morning, he is displeased with his dysphagia diet, discussed importance, aspiration precautions, Vitals/I&O/Wt Last Vital Signs Temp 97.6 F 06/20/25 07:28 Pulse 73 06/20/25 08:26 Resp 16 06/20/25 08:26 BP 142/75 06/20/25 07:28 Pulse Ox 96 06/20/25 08:26 O2 Del Method Room Air 06/20/25 08:26 O2 Flow Rate 4 06/16/25 08:25 FiO2 30 06/15/25 23:41 06/19/25 06/20/25 06/20/25 22:59 06:59 14:59 Intake Total 240 / 780 480 / 1260 Balance 240 / -2520 480 / -2040 Weight last 48 hrs Weight 54.431 kg Weight 54.5 kg Weight 51.71 kg Physical Exam 2 Const: COMMON NORMALS: no acute distress and patient oriented x3 Resp: COMMON NORMALS: normal respiratory effort, No retractions and No use of accessory muscles AUSCULTATION: crackles and wheezes Cardio: COMMON NORMALS: regular rate, regular rhythm, S1 normal heart sound present and S2 normal heart sound present RATE: regular rate RHYTHM: r egular rhythm HEART SOUNDS: S1 normal heart sound present and S2 normal heart sound present GI: COMMON NORMALS: Normal to inspection, nondistended, normoactive bowel sounds present and non-tender Extremity: COMMON NORMALS: no calf tenderness and no pedal edema Neuro: COMMON NORMALS: patient oriented x3 Psych: COMMON NORMALS: mental status grossly normal Data 06/20/25 04:11 06/20/25 04:11 A&P Assessment and plan 1. Acute hypoxic respiratory failure: 2. Sepsis: 3. Bilateral pneumonia: 4. ARDS (adult respiratory distress syndrome): 5. Pulmonary edema: 6. ESRD (end stage renal disease): 7. Dialysis patient: 8. NSTEMI (non-ST elevated myocardial infarction): 9. Intellectual disability: 10. Diabetes mellitus with hyperglycemia: 11. Type 1 diabetes mellitus with chronic kidney disease on chronic dialysis: 12. Aspiration pneumonia: Plan: Acute hypoxic respiratory failure -With evidence of acute respiratory distress - Multifactorial - Component of pneumonia, bilateral, history of aspiration pneumonia, aspiration pneumonitis - Concerns for fluid overload, pulmonary edema, acute flash pulmonary edema CT angio of the chest CT/CT angio chest PE protcl [id number] IMPRESSION: 1. No pulmonary embolism. 2. Extensive multifocal pulmonary consolidation throughout both lungs. More dense focal consolidation extend to the periphery at the lung bases, greatest on the LEFT. Suspect cardiogenic pulmonary edema with superimposed pneumonia and/or atelectasis at the bases. Differential includes ARDS, pulmonary hemorrhage and noncardiogenic pulmonary edema. 3. Diffuse soft tissue anasarca. 4. Moderate cardiomegaly. - Clinically improved, monitor room air Plan - Medical floors - Currently on room air - Vancomycin - Meropenem - Expected to prednisone - Receiving dialysis yesterday, repeat chest x-ray today, placed on fluid restrictions -DuoNeb -Budesonide - Sputum culture - Blood cultures - Monitor respiratory status closely - Full code - Lovenox for DVT prophylaxis Aspiration risk - Aspiration risk remains high - Meals should be supervised -Dysphagia level 4 diet, moderately thickened -Speech therapy Sepsis, resolved - Sepsis features met given acute respiratory failure, pneumonia on chest x-ray, NSTEMI NSTEMI, serial EKGs, serial troponins, telemetry monitoring Acute encephalopathy - Multifactorial from pneumonia, sepsis Intellectual disability Plan for today continue meropenem, continue prednisone, will consider session of dialysis tomorrow fluid overload PDMP PDMP Reviewed: Not Reviewed Attestations 2 Medical Necessity Statement*: Patient requires hospitalization for respiratory failure, aspiration Diagnoses Acute hypoxic respiratory failure J96.01 Sepsis A41.9 Bilateral pneumonia J18.9 ARDS (adult respiratory distress syndrome) J80 Pulmonary edema J81.1 ESRD (end stage renal disease) N18.6 Dialysis patient Z99.2 NSTEMI (non-ST elevated myocardial infarction) I21.4 Intellectual disability F79 Diabetes mellitus with hyperglycemia E11.65 Type 1 diabetes mellitus with chronic kidney disease on chronic dialysis E10.22; N18.6; Z99.2 Chronic kidney disease stage: on chronic dialysis Diabetes mellitus complication detail: with chronic kidney disease Diabetes mellitus complication status: with kidney complications Aspiration pneumonia J69.0
[2025-06-20] MEDS: meropenem 1,000 mg SDV 1000 MG IVP ×2 (13:04→23:09)
[2025-06-20] MEDS: ATORVASTATIN 10 MG TABLET PO (17:49)
[2025-06-20] MEDS: pantoprazole 40 mg SDV IVP (18:06)
[2025-06-21] VITALS (9 sets, daily range): BP systolic 121–141; BP diastolic 67–76; PULSE 76–86; RESP 15–17; TEMP 36.4–36.7; O2SAT 95–99
[2025-06-21] MEDS: heparin 5,000 unit/mL INJ 1 mL 5000 UNIT SUBCUT (04:39)
[2025-06-21 08:35] LABS: Hematocrit 37.8 % (37-53); Hemoglobin 12.00 g/dL (11.27-16.99); Mean Corpuscular HGB Conc 31.7 g/dL (30-55); Mean Corpuscular Hemoglobin 29.9 pg (27-33); Mean Corpuscular Volume 94.3 fl (82-101); Nucleated Red Blood Cells % 0 %; Platelet Count 202 10^3/cmm (157-399); Red Blood Count 4.01 10^6/uL (3.85-5.65); White Blood Count 6.23 10^3/uL (3.29-11.43)
[2025-06-21 09:05] LABS: Alanine Aminotransferase 15 U/L (0-41); Albumin Level 3.0 g/dL (3.5-5.2); Alkaline Phosphatase 91 U/L (40-130); Blood Urea Nitrogen 65 mg/dL (6-20); Calcium 9.1 mg/dL (8.5-10.5); Carbon Dioxide 24 mmol/L (22-29); Chloride 95 mmol/L (98-107); Creatinine Clr Calc Pharmacy 15.6789; Globulin 3.4 g/dL (1.3-4.6); Glucose 124 mg/dL (65-115); Magnesium 1.9 mg/dL (1.7-2.3); Osmolality Calculated 296 mOsm/kg (285-295); Sodium 133 mmol/L (136-145); Total Protein 6.4 g/dL (6.6-8.7)
[2025-06-21 09:17] LABS: Calcium 9.1 mg/dL (8.5-10.5)
[2025-06-21 09:30] LABS: Anion Gap 19.3 (5-19); Aspartate Amino Transferase 39 U/L (0-40); Potassium 5.3 mmol/L (3.5-5.1)
--- NOTE | 2025-06-21 09:48 | PC.NURSE ---
Updated Valentine that patient will be returning today.
[2025-06-21 09:58] LABS: NT Pro B Type Natriuretic Pept > 70000 pg/mL (0-125)
--- NOTE | 2025-06-21 10:01 | P.PN_ITS ---
Subjective 2 Subjective: feels better. wants to go home. no n/cp/c/banks/d/v/ sob Medications: Reviewed: Yes Medication Review Details: Current Medications Acetaminophen (Acetaminophen 325 Mg Tablet) 650 mg PO Q6H PRN PRN Reason: Mild/Mod Pain Or Temp >/= 101 Albuterol/Ipratropium (Ipratropium-Albuterol 3 Ml Neb) 3 ml INHALATION QID.RESPIRATORY PRN PRN Reason: SHORTNESS OF BREATH Last Admin: 06/17/25 19:36 Dose: 3 ml Aripiprazole (Aripiprazole 10 Mg Tablet) 15 mg PO QPM [facility] Last Admin: 06/20/25 17:48 Dose: 15 mg Aspirin (Aspirin 325 Mg Ec Tablet) 325 mg PO DAILY [facility] Last Admin: 06/21/25 09:13 Dose: 325 mg Atorvastatin Calcium (Atorvastatin 10 Mg Tablet) 10 mg PO QPM [facility] Last Admin: 06/20/25 17:49 Dose: 10 mg Benztropine Mesylate (Benztropine 1 Mg Tablet) 1 mg PO BID@ [facility] Last Admin: 06/21/25 09:19 Dose: 1 mg Budesonide (Budesonide 0.5 Mg/2 Ml Neb) 0.5 mg INHALATION BID.RESPIRATORY PRN PRN Reason: SHORTNESS OF BREATH Last Admin: 06/17/25 19:37 Dose: 0.5 mg Carvedilol (Carvedilol 12.5 Mg Tablet) 12.5 mg PO BID [facility] Last Admin: 06/21/25 09:14 Dose: 12.5 mg Clonazepam (Clonazepam 0.5 Mg Tablet) 0.5 mg PO MoWeFr [facility] Last Admin: 06/19/25 11:19 Dose: 0.5 mg Fenofibrate (Fenofibrate 145 Mg Tablet) 145 mg PO DAILY [facility] Last Admin: 06/21/25 09:13 Dose: 145 mg Gabapentin (Gabapentin 300 Mg Capsule) 300 mg PO TID [facility] Last Admin: 06/21/25 09:13 Dose: 300 mg Glucagon (Glucagon 1 Mg/Ml Kit 1 Ml) 1 mg IM ONCE PRN; Protocol PRN Reason: Adult Acute Hypoglycemia Nursing Prot. Heparin Sodium (Porcine) (Heparin 5,000 Unit/Ml Inj 1 Ml) 5,000 unit SUBCUT Q12H [facility] Last Admin: 06/21/25 04:39 Dose: 5,000 unit Sodium Chloride (Sodium Chloride 0.9%) 1,000 mls @ 0 mls/hr IV .Q0M PRN PRN Reason: hypotension or symptomatic Dextrose (D5w) 500 mls @ 0 mls/hr IV ONCE PRN; Protocol PRN Reason: Adult Acute Hypoglycemia Prot Dextrose (D10w) 125 mls @ 750 mls/hr IV PRN PRN; Protocol PRN Reason: Adult Acute Hypoglycemia Nursing Protocol Dextrose (D10w) 250 mls @ 1,000 mls/hr IV PRN PRN; Protocol PRN Reason: Adult Acute Hypoglycemia Nursing Protocol Sodium Chloride (Sodium Chloride 0.9%) 1,000 mls @ 0 mls/hr IV .Q0M PRN PRN Reason: hypotension or symptomatic Albumin Human (Albumin) 12.5 gm in 50 mls @ 60 mls/hr IV PRN PRN PRN Reason: Hypotension and/or symptomatic Sodium Chloride (Sodium Chloride 0.9%) 1,000 mls @ 0 mls/hr IV .Q0M PRN PRN Reason: hypotension or symptomatic Albumin Human (Albumin) 12.5 gm in 50 mls @ 60 mls/hr IV PRN PRN PRN Reason: Hypotension and/or symptomatic Insulin Human Lispro (Insulin Lispro 100 Unit/1 Ml) 0 unit SUBCUT TIDWM [facility]; Protocol Last Admin: 06/21/25 09:12 Dose: 2 unit Isosorbide Mononitrate (Isosorbide Mononitrate Er 30 Mg Tablet) 60 mg PO DAILY [facility] Last Admin: 06/21/25 09:14 Dose: 60 mg Lanolin (Lanolin Oint 7 Gm) 1 applic TOPICAL PRN PRN PRN Reason: DRYNESS Last Admin: 06/18/25 13:57 Dose: 1 applic Lisinopril (Lisinopril 20 Mg Tablet) 40 mg PO DAILY [facility] Last Admin: 06/21/25 09:14 Dose: 40 mg Lurasidone HCl (Lurasidone 20 Mg Tablet) 60 mg PO BIDWM [facility] Last Admin: 06/21/25 09:13 Dose: 60 mg Meropenem (Meropenem 1,000 Mg Sdv) 1,000 mg IVP Q12H [facility]; Protocol Last Admin: 06/20/25 23:09 Dose: 1,000 mg Morphine Sulfate (Morphine 4 Mg/Ml Sdv 1 Ml) 2 mg IVP Q4H PRN PRN Reason: SEVERE PAIN Last Admin: 06/19/25 16:20 Dose: 2 mg Naloxone HCl (Naloxone 0.4 Mg/Ml Sdv) 0.1 mg IVP Q2M PRN PRN Reason: OPIATERV Ondansetron HCl (Ondansetron 2 Mg/Ml Sdv 2 Ml) 4 mg IVP Q8H PRN PRN Reason: vomiting, or N/V if npo Pantoprazole Sodium (Pantoprazole 40 Mg Sdv) 40 mg IVP Q24H [facility] Last Admin: 06/20/25 18:06 Dose: 40 mg Prednisone (Prednisone 20 Mg Tablet) 40 mg PO DAILY [facility] Last Admin: 06/21/25 09:13 Dose: 40 mg Sodium Polystyrene Sulfonate (Sodium Polystyrene Sulfonate 15 Gm/60 Ml Btl) 30 gm PO ONCE ONE Stop: 06/21/25 10:01 Trazodone HCl (Trazodone 100 Mg Tablet) 250 mg PO QPM [facility] Last Admin: 06/20/25 17:49 Dose: 250 mg Vitals/I&O/Wt Last Vital Signs Temp 97.6 F 06/21/25 07:56 Pulse 76 06/21/25 08:44 Resp 16 06/21/25 08:44 BP 141/71 06/21/25 07:56 Pulse Ox 98 06/21/25 08:44 O2 Del Method Room Air 06/21/25 08:44 O2 Flow Rate 4 06/16/25 08:25 FiO2 30 06/15/25 23:41 06/20/25 06/21/25 06/21/25 22:59 06:59 14:59 Intake Total 410 / 510 100 / 610 240 / 240 Balance 410 / 510 100 / 610 240 / 240 Weight last 48 hrs Weight 55.1 kg Weight 54.431 kg Weight 54.5 kg Physical Exam 2 Narrative: vital Signs noted well-controlled. Patient lying in bed no apparent distress. Patient is awake he is talking appropriately. HEENT normocephalic atraumatic Neck is supple no JVP. Lungs good air movement bilaterally heart is regular Patient has right anterior chest wall permacath. Abdomen is soft positive bowel sounds nontender. Extremities have no edema. Neuro -moving, more awake, alert, interactive Data 06/21/25 08:24 06/21/25 08:24 Micro: Microbiology 06/15/25 14:06 Blood Culture - Final Blood NO GROWTH AFTER 5 DAYS 06/15/25 14:02 Blood Culture - Final Blood NO GROWTH AFTER 5 DAYS A&P Assessment and plan 1. End stage renal disease on dialysis: 55-year-old man Underlying history of intellectual disability lives in a [facility], history of diabetes. 1. Pneumonia -abx as per hospitalists Steroids are being decreased. 2. ESRD dialysis Sunday and Sunday k 5.3- hemolyzed. give kayexalate 30 gm po and HD tomorrow. low potassium, renal diet 3. Blood pressure well-controlled. 4. Diabetes monitor sugars per medicine. 5. Anemia hemoglobin acceptable for a patient with ESRD 6. TSH well-controlled 8. PTH well controlled for ESRD pt. vitamin D level 59- no need to give vit d. medications reviewed Patient was seen and examined with the aid of a nurse using audiovisual equipment with a telehealth visit. Plan: Dialysis on a Sunday schedule. Antibiotics as the hospitalist. PDMP PDMP Reviewed: Not Reviewed Attestations 2 Medical Necessity Statement*: per hospitalist Time Spent in Patient Care: 16 - 35 minutes (>than 50% of time sp ent in counselling and/or direct pt care on unit) . Coding Level of Care Code Acute Code for Chg Fwd Diagnoses End stage renal disease on dialysis N18.6; Z99.2
--- NOTE | 2025-06-21 11:41 | P.DS_ITS ---
Discharge Providers Date of Admission: 06/15/25 15:02 Date of Discharge: June 21, 2025 Attending Provider at Admission: Enrique Valdes MD Attending Provider at Discharge: Enrique Valdes MD Primary Care Provider: Valente Harding DO Diagnoses at Discharge Discharge Diagnosis 1. End stage renal disease on dialysis: Reason for Visit Reason for Visit: difficulty breathing Hospital Course Hospital Course Tyrese Leach is a 55 year old male with a past medical history of in tellectual disability, at a fdc, end-stage renal disease on dialysis, history of type 2 diabetes, currently off insulin therapy, he has healthcare power of mergers and acquisitions attorney has , currently makes decisions for himself but there is in the works of having a guardian for patient, history of aspiration pneumonia/aspiration pneumonitis, who presents to [facility] due to acute hypoxia, lethargy, confusion. Currently Tyrese is on 15 L nonrebreather, he is on mild to moderate respiratory distress, nasopharynx went to culture retractions, suprasternal retractions, he is able to awaken, able to follow commands, he smiles at the caregivers at bedside, he is able to shake my hand, I cannot get a lot of history from him given his intellectual disability and his encephalopathy, but according to caregivers, he was at the dialysis center, he was about an hour into dialysis, when he started becoming lethargic, short of breath, with low O2 sats in the low 70s, so they had to call EMS, rule recent illnesses no recent falls, no known aspiration Patient was admitted to [facility] for acute hypoxic respiratory failure, multifactorial with acute flash pulmonary edema, acute respiratory distress, aspiration pneumonia, aspiration pneumonitis, diastolic CHF exacerbation, with sepsis. Patient was admitted to the ICU, managed on broad- spectrum antibiotic therapy, IV diuresis, speech therapy eval, aspiration precautions, and clinically monitored. Overall patient clinical condition improved dialyzed over 9 L negative, jail will have to keep up with his dialysis schedule as patient has a high risk of acute flash pulm edema, fluid restrictions to 1200 cc of fluid a day. For his aspiration pneumonia/pneumonitis, will be discharged with aspiration precautions, Augmentin, prednisone, dysphagia level 4 diet, moderately thickened. Acute encephalopathy, has significantly resolved, does have intellectual disability but on discharge he is interactive he is able to shake my hands, able to smile for me, wants to his name, at times can answer yes or no questions. Physical Exam Const: COMMON NORMALS: no acute distress ORIENTATION/CONSCIOUSNESS: Yes awake and Yes oriented to person; not oriented to place and not oriented to time Resp: COMMON NORMALS: normal respiratory effort, No retractions, No use of accessory muscles and clear to auscultation bilaterally AUSCULTATION: clear to auscultation bilaterally Cardio: COMMON NORMALS: regular rate, regular rhythm, S1 normal heart sound present and S2 normal heart sound present RATE: regular rate RHYTHM: regular rhythm HEART SOUNDS: S1 normal heart sound present and S2 normal heart sound present GI: COMMON NORMALS: Normal to inspection, nondistended, normoactive bowel sounds present and non-tender Extremity: COMMON NORMALS: no pedal edema Neuro: SENSORIUM/ORIENTATION: Yes oriented to person, No oriented to place and No oriented to time Discharge Data Studies Completed and Pending Completed Studies During Hospitalization Category Date Time Status CT angio chest PE protcl [id number] Stat Cat Scan 06/15/25 14:57 Completed XR chest 1V portable [id number] Routine Exams 06/16/25 07:00 Completed XR chest 1V portable [id number] Routine Exams 06/19/25 07:00 Completed XR chest 1V portable [id number] Stat Exams 06/15/25 13:37 Completed XR chest 1V portable [id number] Stat Exams 06/20/25 08:29 Completed Pending at discharge Category Date Time Status Comprehensive Metabolic Panel AM LABS Lab 06/22/25 04:00 Ordered Comprehensive Metabolic Panel AM LABS Lab 06/23/25 04:00 Ordered Magnesium AM LABS Lab 06/22/25 04:00 Ordered Magnesium AM LABS Lab 06/23/25 04:00 Ordered Phosphorus AM LABS Lab 06/22/25 04:00 Ordered Phosphorus AM LABS Lab 06/23/25 04:00 Ordered Sputum Culture and Gram Stain Stat Lab 06/15/25 14:57 Uncollected Urinalysis Routine Lab 06/15/25 16:25 Uncollected Urinalysis Stat Lab 06/15/25 13:37 Uncollected Radiology Impressions Chest CTA 06/15/25 14:57 IMPRESSION: 1. No pulmonary embolism. 2. Extensive multifocal pulmonary consolidation throughout both lungs. More dense focal consolidation extend to the periphery at the lung bases, greatest on the LEFT. Suspect cardiogenic pulmonary edema with superimposed pneumonia and/or atelectasis at the bases. Differential includes ARDS, pulmonary hemorrhage and noncardiogenic pulmonary edema. 3. Diffuse soft tissue anasarca. 4. Moderate cardiomegaly. Chest X-Ray 06/20/25 08:29 IMPRESSION: Stable findings with cardiomegaly and increased prominence of the vascularity. Laboratory Results WBC 6.23 10^3/uL (3.29-11.43) 06/21/25 08:24 RBC 4.01 10^6/uL (3.85-5.65) 06/21/25 08:24 Hgb 12.00 g/dL (11.27-16.99) 06/21/25 08:24 Hct 37.8 % (37-53) 06/21/25 08:24 MCV 94.3 fl (82-101) 06/21/25 08:24 MCH 29.9 pg (27-33) 06/21/25 08:24 MCHC 31.7 g/dL (30-55) 06/21/25 08:24 RDW 15.4 % (12.1-15.1) H 06/21/25 08:24 Plt Count 202 10^3/cmm (157-399) 06/21/25 08:24 MPV 10.9 fL (7.4-10.4) H 06/21/25 08:24 Neut % (Auto) 64.3 % 06/21/25 08:24 Lymph % (Auto) 23.4 % 06/21/25 08:24 Eagle % (Auto) 9.0 % 06/21/25 08:24 Eos % (Auto) 3.0 % 06/21/25 08:24 Baso % (Auto) 0.0 % 06/21/25 08:24 Neut # (Auto) 4.00 10^3/uL (1.8-7.7) 06/21/25 08:24 Lymph # (Auto) 1.5 10^3/uL (0.8-4.8) 06/21/25 08:24 Eagle # (Auto) 0.6 10^3/uL (0.2-0.9) 06/21/25 08:24 Eos # (Auto) 0.2 10^3/uL (0.0-0.8) 06/21/25 08:24 Baso # (Auto) 0.0 10^3/uL (0.0-0.1) 06/21/25 08:24 Nucleated RBC % (auto) 0 % 06/21/25 08:24 Nucleated RBCs # 0.0 /100WBC 06/21/25 08:24 Specimen Type Arterial 06/15/25 13:45 Sample Site Radial, right 06/15/25 13:45 ABG pH 7.38 (7.35-7.45) 06/15/25 13:45 ABG pCO2 46.7 mmHg (35-45) H 06/15/25 13:45 ABG pO2 62.7 mmHg (80.0-100.0) L 06/15/25 13:45 ABG HCO3 27.7 mmol/L (22-26) H 06/15/25 13:45 ABG O2 Saturation 91.0 06/15/25 13:45 ABG Base Excess 2.0 mmol/L (-2.0-2.0) 06/15/25 13:45 Jeff Test Pos 06/15/25 13:45 A-a O2 Gradient 3.9 mmHg (5-10) L 06/15/25 13:45 Hematocrit 35.9 % (42-52) L 06/15/25 13:45 Hgb O2 Saturation 88.8 % (95-100) L 06/15/25 13:45 Carboxyhemoglobin 1.6 %THgb (0.4-20.1) 06/15/25 13:45 Methemoglobin 0.9 % (0.4-1.5) 06/15/25 13:45 Total Hemoglobin 11.7 g/dL (14-18) L 06/15/25 13:45 Sodium 135.0 mmol/L (131-143) 06/15/25 13:45 Potassium 3.8 mmol/L (3.5-5.0) 06/15/25 13:45 Glucose 150.0 mg/dL (70-115) H 06/15/25 13:45 Ionized Calcium 1.2 mmol/L (1.1-1.4) 06/15/25 13:45 O2 Delivery Device Nrb 06/15/25 13:45 O2 Liters/Min 15.0 % 06/15/25 13:45 Head Of Sales Promotion ID [employer] 06/15/25 13:45 Sodium 133 mmol/L (136-145) L 06/21/25 08:24 Potassium 5.3 mmol/L (3.5-5.1) H 06/21/25 08:24 Chloride 95 mmol/L (98-107) L 06/21/25 08:24 Carbon Dioxide 24 mmol/L (22-29) 06/21/25 08:24 Anion Gap 19.3 (5-19) H 06/21/25 08:24 BUN 65 mg/dL (6-20) H 06/21/25 08:24 Creatinine 4.1 mg/dL (0.7-1.2) H 06/21/25 08:24 GFR Calculation 18.4 mL/min (90-130) L 06/21/25 08:24 Glucose 124 mg/dL (65-115) H 06/21/25 08:24 POC Glucose 168 mg/dL (70-110) H 06/21/25 05:47 Estimat Average Glucose 140 06/15/25 14:06 Hemoglobin A1c 6.5 % (4.0-6.0) H 06/15/25 14:06 Calculated Osmolality 296 mOsm/kg (285-295) H 06/21/25 08:24 Lactic Acid 0.6 mmol/L (0.5-2.2) 06/15/25 14:06 Calcium 9.1 mg/dL (8.5-10.5) 06/21/25 08:24 Phosphorus 4.4 mg/dL (2.5-4.5) 06/21/25 08:24 Magnesium 1.9 mg/dL (1.7-2.3) 06/21/25 08:24 Total Bilirubin 0.5 mg/dL (0.15-1.2) 06/21/25 08:24 AST 39 U/L (0-40) 06/21/25 08:24 ALT 15 U/L (0-41) 06/21/25 08:24 Alkaline Phosphatase 91 U/L (40-130) 06/21/25 08:24 Troponin T Baseline 97 ng/L (0-15) H 06/15/25 14:06 Troponin T 120 Minute 98.71 ng/L (0-15) H 06/15/25 16:52 Delta Troponin T 1.71 ABS# (0-10) 06/15/25 16:52 Troponin T Hi Sens 6Hr 101.5 ng/L (0-15) H 06/15/25 20:29 Troponin T Hi Sens 6Hr Delta 4.5 ng/L (0-12) 06/15/25 20:29 C-Reactive Protein 8.7 mg/L (0.0-4.9) H 06/21/25 08:24 NT-Pro-B Natriuret Pep > 70964 pg/mL (0-125) H 06/21/25 08:24 Total Protein 6.4 g/dL (6.6-8.7) L 06/21/25 08:24 Albumin 3.0 g/dL (3.5-5.2) L 06/21/25 08:24 Globulin 3.4 g/dL (1.3-4.6) 06/21/25 08:24 Triglycerides 57 mg/dL (0-150) 06/15/25 14:06 Cholesterol 100 mg/dL (0-200) 06/15/25 14:06 LDL Cholesterol, Calc 37 mg/dL (50-129) L 06/15/25 14:06 HDL Cholesterol 52 mg/dL (60-100) L 06/15/25 14:06 LDL/HDL Ratio 0.71 RATIO (0.00-3.22) 06/15/25 14:06 Cholesterol/HDL Ratio 1.92 mg/dL (1.0-5.00) 06/15/25 14:06 25-OH Vitamin D Total 59 ng/mL (30-100) 06/21/25 08:24 Procalcitonin 8.91 ng/mL (0-0.5) H 06/18/25 03:50 TSH 0.71 uIU/mL (0.27-4.20) 06/15/25 14:06 PTH Intact 193.6 pg/mL (15-65) H 06/21/25 08:24 Calcium (PTH Intact) 9.1 mg/dL (8.5-10.5) 06/21/25 08:24 Random Vancomycin 14.9 ug/mL (20.0-40.0) L 06/19/25 04:27 Hep Bs Antigen Non-reactive (Nonreactive) 06/15/25 16:52 Hep Bs Antibody < 3.5 (11.5-1000) L 06/15/25 16:52 Hepatitis C Antibody Non-reactive (Nonreactive) 06/15/25 16:52 Influenza A (PCR) Negative (Negative) 06/15/25 15:11 Influenza Type B (PCR) Negative (Negative) 06/15/25 15:11 RSV (PCR) Negative (Negative) 06/15/25 15:11 SARS-CoV-2 (PCR) Negative (Negative) 06/15/25 15:11 Vitals Last Vital Signs Temp 97.6 F 06/21/25 07:56 Pulse 76 06/21/25 08:44 Resp 16 06/21/25 08:44 BP 141/71 06/21/25 07:56 Pulse Ox 98 06/21/25 08:44 O2 Del Method Room Air 06/21/25 08:44 O2 Flow Rate 4 06/16/25 08:25 FiO2 30 06/15/25 23:41 Discharge Plan Discharge Patient Disposition: Home Condition: Stable Prescriptions: New prednisone 20 mg Tablet 40 mg PO DAILY 5 Days Qty: 10 0RF amoxicillin-pot clavulanate [Augmentin] 500-125 mg tablet 1 tab PO BID 7 Days Qty: 14 0RF Rx Instructions: Please administer after dialysis on dialysis days insulin aspart U-100 [Novolog FlexPen U-100 Insulin] 100 unit/mL (3 mL) insulin pen See Rx Instructions .ROUTE .COMPLEX Qty: 15 0RF Rx Instructions: Inject, 3 times daily, after meals, based on low-dose sliding scale Continued polyethylene glycol 3350 [Miralax] 17 gram powder in packet 17 g PO DAILY dextrose [Glucose Gel] 40 % gel 15 g PO Q15M PRN (Reason: low bs) Rx Instructions: until symptoms of low blood sugar are controlled lidocaine 5 % adhesive patch,medicated 1 patch topical DAILY Rx Instructions: leave on most painful area for up to 12 hrs mupirocin 2 % ointment 1 applic topical BID Qty: 15 0RF trazodone 100 mg tablet 250 mg PO QPM lisinopril 40 mg tablet 40 mg PO DAILY gabapentin 300 mg capsule 300 mg PO TID Qty: 90 5RF loperamide [Anti-Diarrheal (loperamide)] 2 mg tablet See Rx Instructions .ROUTE .COMPLEX Qty: 30 0RF Dose Instruction: TAKE 2 TABLETS BY MOUTH WITH ONSET OF FOR DIARRHEA NEEDED; MAY REPEAT WITH EACH LOOSE STOOL; NO MORE THAN 8 TABLETS PER DAY Rx Instructions: TAKE 2 TABLETS BY MOUTH WITH ONSET OF FOR DIARRHEA NEEDED; MAY REPEAT WITH EACH LOOSE STOOL; NO MORE THAN 8 TABLETS PER DAY carvedilol 12.5 mg tablet See Rx Instructions .ROUTE .COMPLEX Qty: 60 3RF Dose Instruction: TAKE 1 TABLET BY MOUTH TWICE DAILY; take with a meal OR food. do not take if systolic blood pressure is below 90 OR diastolic blood pressure is below 60 Rx Instructions: TAKE 1 TABLET BY MOUTH TWICE DAILY; take with a meal OR food. do not take if systolic blood pressure is below 90 OR diastolic blood pressure is below 60 aripiprazole 15 mg tablet See Rx Instructions .ROUTE .COMPLEX Qty: 90 3RF Dose Instruction: TAKE 1 TABLET BY MOUTH EVERY MORNING FOR DEPRESSION Rx Instructions: TAKE 1 TABLET BY MOUTH EVERY MORNING FOR DEPRESSION isosorbide mononitrate 60 mg tablet extended release 24 hr See Rx Instructions .ROUTE .COMPLEX Qty: 30 0RF Dose Instruction: TAKE 1 TABLET BY MOUTH EVERY DAY FOR BLOOD FLOW; check BP PRIOR TO ADMIN, HOLD IF LESS TAHN 90/60, HOLD FOR DIALYSIS Rx Instructions: TAKE 1 TABLET BY MOUTH EVERY DAY FOR BLOOD FLOW; check BP PRIOR TO ADMIN, HOLD IF LESS TAHN 90/60, HOLD FOR DIALYSIS amlodipine 10 mg Tablet 10 mg PO DAILY@09 benztropine 1 mg Tablet 1 mg PO BID@09, multivitamin with folic acid [Daily-Sean (with folic acid)] 400 mcg tablet 1 tab PO DAILY@09 lurasidone 120 mg tablet 60 mg PO BID aspirin 325 mg tablet,delayed release (DR/EC) 325 mg PO DAILY fenofibrate 160 mg tablet 160 mg PO DAILY famotidine 20 mg tablet 20 mg PO BID acetaminophen [Tylenol] 325 mg Tablet 650 mg PO QID PRN (Reason: Pain) clonazepam 0.5 mg tablet See Rx Instructions .ROUTE .COMPLEX Rx Instructions: TAKE 1 TABLET BY MOUTH DAILY before dialysis on Sunday, Sunday, and Sunday for anxiety. atorvastatin 10 mg Tablet 10 mg PO QPM ondansetron 4 mg tablet,disintegrating 4 mg PO Q6H PRN (Reason: nausea and vomiting) Qty: 10 0RF No Action (DME) Wheelchair pad See Rx Instructions .Route .MEDSUPPLY Qty: 1 0RF Rx Instructions: As directed (DME) wheelchair restraints See Rx Instructions .[facility] Qty: 1 0RF Rx Instructions: Risk of falls out of wheelchair with prior events. Needs restraints for safety. (DME) blood glucose control, normal [True Metrix Level 2] Solution See Rx Instructions .Route Qty: 1 11RF Rx Instructions: As directed Discharge Order = DC NOW: Discharge Order (Routine); Ordered 06/21/25 Ordered By: Enrique Valdes Referrals: Valente Harding DO [Primary Care Provider, [facility]] Referral Note: We have notified your physician's clinic of the need for a follow-up appointment to be scheduled. If you have not heard from them within the next 2 business days, please call them directly. Discharge Diet: As Directed Discharge Activity: Increase activity as tolerated Patient Instructions: Opioid Safety, Patient Portal & Kaye Instructions Activity Restrictions/Additional Instructions: - Please adhere to dysphagia level 4 diet, moderately thickened liquids - Supervised oral feeds due to aspiration risk - Aspiration precautions - Patient needs to go to dialysis tomorrow -Please monitor your blood sugars closely -Monitor your blood sugars 3 times daily as after meals -Please record your blood sugars, and a blood sugar log -For your NovoLog -Please inject blood sugar after meals based on sliding scale provided -Do not inject insulin if you do not eat as hypoglycemia kills -This is a NovoLog sliding scale -Insulin sliding ?fingerstick? Insulin ?141-180?0 units/sq 181-220?2 units/sq ?221-260?4 units/sq ?261-300 6 units/sq ?301-350?8 units/sq ?351-400 10 units/sq ?401-450?12 units/sq >450? 14units/sq -If your blood sugar is greater than 500 go to the emergency room -If your blood sugar is less than 60 or at anytime you feel lightheaded or dizzy or diaphoretic or have chest palpitations check your blood sugar, and eat a hard candy or drink orange juice and go immediately to the emergency room -Remember hypoglycemia kills, so if his blood sugar is less than 60 we have to increase it by taking in a sugary meal such as a hard candy or orange juice and go to the emergency room -If you have any questions please call us where here to help - Please continue dialysis Sunday, needs to go to dialysis tomorrow - We need to limit his fluid intake to 1200 mL of fluid a day that includes all fluid consistencies Discharge Attestations Time Spent in Discharge Care*: greater than 30 min Status at Discharge: Cognitive status at discharge: moderately impaired cognition , Behavioral status at discharge: cooperative and can be uncooperative , Quality Metrics Clinical Quality Measures [ No reported AMI, CVA or VTE this stay] Coding Level of Care Code 14680 Total time (in minutes) for Discharge: 45 Diagnoses End stage renal disease on dialysis N18.6; Z99.2
--- NOTE | 2025-06-21 14:30 | PC.NURSE ---
Charge Nurse faxed all paperwork over to [facility]. Staff came and picked patient up. Medications sent to pharmacy.
== END 2025-06-21 12:56 | disposition home or self-care (01) | DRG 871 ==
LOC: ER 14:10 → ICU 15:02 → MEDSURG 06-18 20:23
PROVIDERS: Hospitalist; Internal Medicine Nephrology; Admitting Provider Family Medicine; Emergency Provider Family Medicine; PCP Family Medicine; Visit Provider Family Medicine
DX: A41.9 Sepsis, unspecified organism (principal); G93.41 Metabolic encephalopathy; N18.6 End stage renal disease; I50.33 Acute on chronic diastolic (congestive) heart failure; J96.01 Acute respiratory failure with hypoxia; J69.0 Pneumonitis due to inhalation of food and vomit; I21.4 Non-ST elevation (NSTEMI) myocardial infarction; I13.2 Hypertensive heart and chronic kidney disease with heart failure and with stage 5 chronic kidney disease, or end stage renal disease; E10.22 Type 1 diabetes mellitus with diabetic chronic kidney disease; Z99.2 Dependence on renal dialysis; F79 Unspecified intellectual disabilities; E10.65 Type 1 diabetes mellitus with hyperglycemia; F17.210 Nicotine dependence, cigarettes, uncomplicated; E78.5 Hyperlipidemia, unspecified; Z79.82 Long term (current) use of aspirin
CPT/HCPCS: 36415; 36416; 36600; 71045; 71275; 80051; 80053; 80061; 80202; 82306; 82310; 82330; 82805; 82962; 83036; 83605; 83735; 83880; 83970; 84100; 84145; 84443; 84484; 85025; 86140; 86706; 86803; 87040; 87340; 87637; 90935; 92523; 92526; 92610; 93005; 94640; 94660; 96365; 96372; 96375; 99285; J1644; J1815; J1938; J2185; J2270; J2470; J2919; J3373; J7050; J7512; J7626; J9999; Q3014

== ENCOUNTER → 2025-06-26 09:26 | Outpatient (BNVA) | payer MEDICAID, SELFPAY | PROVIDERS: Absent Provider Internal Medicine; PCP Family Medicine; Visit Provider Internal Medicine | DX: I12.0 Hypertensive chronic kidney disease with stage 5 chronic kidney disease or end stage renal disease (principal); E11.22 Type 2 diabetes mellitus with diabetic chronic kidney disease; N18.6 End stage renal disease; F17.210 Nicotine dependence, cigarettes, uncomplicated; Z79.4 Long term (current) use of insulin; Z99.2 Dependence on renal dialysis | CPT/HCPCS: 99214 ==

== ENCOUNTER 2025-07-19 18:06 | Emergency (ER) | payer MEDICAID, SELFPAY ==
--- OUTSIDE RECORDS SUMMARY | 2023-11-09 10:37 | XMS_ITS | Continuity of Care Document ---
Author Organization [address] [place] [address] Address [address] [facility] [address] [place] [address] Phone Care Team Providers Care Hr Business Partner Consultant Name Role Phone Maria Antonia GOODENMaico Unavailable [...] Diagnoses Date Provider Providers Copied on Encounter [address] [place] [address], [id number], tel:[phone] [facility] No Information 4 Maria Antonia Nina. JACOB. [address] [place] [address], [id number], [place] tel:[phone] [facility] Complete loss of teeth, unspecified cause, unspecified class 3 JACOB Marsh II. Referring Provider: Thomas Zendejas. [address] [place] [address], [id number], [place] tel:[phone] [facility] Complete loss of teeth, unspecified cause, unspecified class 3 Nahid Vázquez [place]. Referring Provider: Thomas Zendejas. [address] [place] [address], [id number], tel:[phone] [facility] Diabetic eye exam (chief complaint) Type 2 diabetes mellitus without complicationsAg e-related nuclear cataract, bilateralCortic al age-related cataract, bilateralSquamo us blepharitis unspecified eye, unspecified eyelid 3 JACOB Dotson. Referring Provider: Thomas Zendejas. [address] [place] [address], [address] [facility] [address], [place], [place], [id number], tel:[phone] [facility] No Information 3 AJCOB Dotson. [address] [place] [address], [address] [facility] [address], [place], [place], [id number], tel:[phone] [facility] Encounter for dental examination and cleaning without abnormal findings 3 [place] Leo. Referring Provider: Thomas Zendejas. Family History Family Member Type Diagnosis Age At Onset No Information Payers Payer name Insurance type Covered libertarian ID Authoriza ticarley(s) DDS Medicaid [facility] [id number] Social History Type Description Quantity Date Captured [...] ocular complications, progress note generated for patient's [facility] for PCP to review. Related to Type 2 diabetes mellitus without complications Assessments Type Assessment Date No Information Patient Care Teams Name Effective Dates (start - stop) Status Members No Information
[2025-07-19 18:07] VITALS: BP 164/81; PULSE 75; RESP 24; TEMP 36.8; O2SAT 98; BMI 21.2
--- NOTE | 2025-07-19 18:10 | XRR_ITS ---
PROCEDURE INFORMATION: Exam: XR Chest Exam date and time: 07/19/2025 6:15 PM Age: 55 years old Clinical indication: Cough; Additional info: SOB; Cough; Chest congestion; Lethargy; Best obtainable image-pt unable to follow breathing instructions. TECHNIQUE: Imaging protocol: Radiologic exam of the chest. Views: 1 view. COMPARISON: CR (CHEST, ) 06/20/2025 8:43 AM FINDINGS: Tubes, catheters and devices: Right-sided central venous catheter terminates at the level of hemidiaphragm unexpected location of right atrium, not significantly changed from prior new line cardiomegaly, stable. Lungs: No focal consolidation. Mild pulmonary vascular distension. Pleural spaces: Unremarkable. No pleural effusion. No pneumothorax. Heart/Mediastinum: Unremarkable. No cardiomegaly. Bones/joints: Unremarkable. XR/XR chest 1V portable [id number] IMPRESSION: Cardiomegaly with pulmonary vascular distension which may be seen with changes of volume overload.
--- NOTE | 2025-07-19 18:10 | CTR_ITS ---
PROCEDURE INFORMATION: Exam: CT Head Without Contrast Exam date and time: 07/19/2025 6:36 PM Age: 55 years old Clinical indication: Altered mental status/memory loss; Confusion or disorientation; Additional info: AMS TECHNIQUE: Imaging protocol: Computed tomography of the head without contrast. Radiation optimization: All CT scans at this facility use at least one of these dose optimization techniques: automated exposure control; mA and/or kV adjustment per patient size (includes targeted exams where dose is matched to clinical indication); or iterative reconstruction. COMPARISON: CT head wo con* [id number] 02/04/2025 2:30 PM RADIATION DOSE METRICS: Total DLP (mGy-cm): 872.68 FINDINGS: Brain: Normal. No hemorrhage. Unremarkable white matter. No mass effect. Cerebral ventricles: No ventriculomegaly. Paranasal sinuses: Visualized sinuses are unremarkable. No fluid levels. Mastoid air cells: Visualized mastoid air cells are well aerated. Bones: Unremarkable. No acute fracture. Soft tissues: Unremarkable. CT/CT head wo con* [id number] IMPRESSION: No acute intracranial abnormality.
--- NOTE | 2025-07-19 18:15 | W.ED.AMS ---
HPI - Altered Mental Status General: Chief Complaint: Altered Mental Status Stated Complaint: AMS Time Seen by Provider: 07/19/25 18:08 Source: EMS Mode of arrival: EMS Limitations: altered mental status History of Present Illness: 55-year-old male well-known to the ER history of type 1 diabetes, end-stage renal disease on dialysis and is mentally handicapped. Patient lives at [facility] per EMS patient's had altered mental status since yesterday. Patient here will wake to painful stimuli but not able to give any history and is quite altered. No known recent illness. Per EMS [place] states that he has received his dialysis as scheduled Related Data Home Medications ?Medication ?Instructions ?Recorded ?Confirmed amlodipine 10 mg tablet 10 mg PO DAILY@03/30/23 06/29/25 multivitamin with folic acid 400 1 tab PO DAILY@03/30/23 06/29/25 mcg tablet (Daily-Sean (with folic acid)) acetaminophen 325 mg tablet 650 mg PO QID PRN Pain 09/04/24 06/29/25 (Tylenol) trazodone 100 mg tablet 250 mg PO QPM 04/28/25 06/29/25 dextrose 40 % oral gel (Glucose 15 g PO Q15M PRN low bs 05/28/25 06/29/25 Gel) lidocaine 5 % topical patch 1 patch topical DAILY 05/28/25 06/29/25 lurasidone 120 mg tablet 60 mg PO BID 05/28/25 06/29/25 polyethylene glycol 3350 17 gram 17 g PO DAILY 05/28/25 06/29/25 oral powder packet (Miralax) Previous Rx's ?Medication ?Instructions ?Recorded ondansetron 4 mg disintegrating 4 mg PO Q6H PRN nausea and 02/11/25 tablet vomiting #10 tabs mupirocin 2 % topical ointment 1 applic topical BID #15 grams 03/26/25 Wheelchair pad #1 ea 04/28/25 gabapentin 300 mg capsule 300 mg PO TID #90 caps 05/23/25 loperamide 2 mg tablet See Rx Instructions .Route 06/09/25 (Anti-Diarrheal (loperamide)) .COMPLEX #30 ea aripiprazole 15 mg tablet See Rx Instructions .Route 06/16/25 .COMPLEX #90 tabs carvedilol 12.5 mg tablet See Rx Instructions .Route 06/16/25 .COMPLEX #60 tabs isosorbide mononitrate 60 mg See Rx Instructions .Route 06/17/25 tablet,extended release 24 hr .COMPLEX #30 tabs insulin lispro 100 unit/mL See Rx Instructions SUBCUT TID #15 06/24/25 subcutaneous pen (Humalog KwikPen mL (U-100) Insulin) aspirin 325 mg tablet,delayed See Rx Instructions .Route 06/26/25 release .COMPLEX #30 ea benztropine 1 mg tablet See Rx Instructions .Route 06/26/25 .COMPLEX #180 tabs famotidine 20 mg tablet See Rx Instructions .Route 06/26/25 .COMPLEX #60 tabs lisinopril 40 mg tablet See Rx Instructions .Route 06/26/25 .COMPLEX #30 tabs alcohol swabs 1 pad topical DIRECTED #200 ea 07/01/25 blood glucose control, normal #1 ea 07/01/25 (True Metrix Level 2 solution) blood sugar diagnostic (Blood #200 ea 07/01/25 Glucose Test strips) cetirizine 10 mg tablet See Rx Instructions .Route 07/01/25 .COMPLEX #90 tabs clonazepam 0.5 mg tablet 0.5 mg PO .COMPLEX #12 tabs 07/01/25 lancets #200 ea 07/01/25 pen needle, diabetic 31 gauge x #100 ea 07/01/25/ (Pen Needle) starch (thickening) (Thick-It oral See Rx Instructions .Route 07/01/25 powder) .COMPLEX #1,020 grams WHEELCHAIR WITH SEAT BELT AND #1 ea 07/15/25 HARNESS baclofen 10 mg tablet 10 mg PO TID PRN muscle spasm 30 07/15/25 days #90 tabs hydrocodone 7.5 mg-acetaminophen 1 tab PO Q6H PRN pain 30 days #120 07/15/25 325 mg tablet tabs naloxone 4 mg/actuation nasal 1 spray intranasal Q3M #2 ea 07/15/25 spray (Narcan) Allergies Allergy/AdvReac Type Severity Reaction Status Date / Time No Known Allergies Allergy Verified 06/25/25 13:13 Review of Systems General: Reports: ROS unobtainable due to mental status PFS ED PFSH: Medical History (Updated 07/19/25 @ 21:50 by Oneida De Anda MD) Malignant hypertension ESRD (end stage renal disease) Hyperlipemia, mixed Acute renal failure Acute kidney injury superimposed on CKD Acute hyponatremia Hyponatremia Anemia Hypervolemia Tobacco abuse Diabetes Social History Smoking and tobacco/nicotine status: current every day tobacco/nicotine user cigarettes Alcohol intake: former Substance/Drug Use: former Physical Exam Const: COMMON NORMALS: negative for patient oriented x3 HENMT: COMMON NORMALS: normocephalic and atraumatic HEAD & SCALP: normocephalic and atraumatic Neck/C-Spine: COMMON NORMALS: full ROM and supple Chest: COMMONS NORMALS: normal inspection of the chest Resp: COMMON NORMALS: normal respiratory effort, No retractions, No use of accessory muscles and clear to auscultation bilaterally AUSCULTATION: clear to auscultation bilaterally Cardio: COMMON NORMALS: regular rate, regular rhythm and No murmurs present (Cardio) RATE: regular rate RHYTHM: regular rhythm GI: COMMON NORMALS: Normal to inspection, nondistended, normoactive bowel sounds present, Soft to palpation, non-tender and no masses PALPATION: Yes Soft to palpation Extremity: COMMON NORMALS: normal to inspection and full ROM Neuro: COMMON NORMALS: negative for patient oriented x3 Psych: COMMON NORMALS: negative for mental status grossly normal Skin: COMMON NORMALS: no rashes or lesions noted and no wounds GENERAL SKIN EXAM: no rashes or lesions noted Course Vital Signs: Vital signs: Vital Signs Temperature 98.2 F 07/19/25 18:07 Pulse Rate 79 07/19/25 21:00 Respiratory Rate 14 07/19/25 18:43 Blood Pressure 137/74 07/19/25 21:00 Pulse Oximetry 98 07/19/25 21:00 Oxygen Delivery Me thod Room Air 07/19/25 19:48 MDM - Altered Mental Status Medical Decision Making Patient presents here with confusion differential include CVA, subarachnoid hemorrhage, infection. Patient's head CT here is normal no signs of bleed he has no signs of infection he started to wake up currently he is at his baseline he stable for discharge at this time he is to follow-up with PCP and return if worsening did review all his labs that showed no acute findings. EKG here showed normal sinus rhythm heart rate [address] elevation QRS 99 QTc 435 Medical Records I reviewed the patient's medical records. Lab Data I reviewed the patient's lab results. 07/19/25 18:25 07/19/25 18:25 Radiology Impressions Chest X-Ray 07/19/25 18:10 IMPRESSION: Cardiomegaly with pulmonary vascular distension which may be seen with changes of volume overload. Head CT 07/19/25 18:10 IMPRESSION: No acute intracranial abnormality. Laboratory Results WBC 7.08 10^3/uL (3.29-11.43) 07/19/25 18: RBC 3.34 10^6/uL (3.85-5.65) L 07/19/25 18: Hgb 9.90 g/dL (11.27-16.99) L 07/19/25 18: Hct 30.3 % (37-53) L 07/19/25 18: MCV 90.7 fl (82-101) 07/19/25 18: MCH 29.6 pg (27-33) 07/19/25 18: MCHC 32.7 g/dL (30-55) 07/19/25 18: RDW 15.0 % (12.1-15.1) 07/19/25 18: Plt Count 289 10^3/cmm (157-399) 07/19/25 18: MPV 10.1 fL (7.4-10.4) 07/19/25 18: Neut % (Auto) 70.3 % 07/19/25 18: Lymph % (Auto) 16.9 % 07/19/25 18: [place] % (Auto) 10.6 % 07/19/25 18: Eos % (Auto) 1.3 % 07/19/25 18: Baso % (Auto) 0.3 % 07/19/25 18: Neut # (Auto) 4.98 10^3/uL (1.8-7.7) 07/19/25 18: Lymph # (Auto) 1.2 10^3/uL (0.8-4.8) 07/19/25 18:25 [place] # (Auto) 0.8 10^3/uL (0.2-0.9) 07/19/25 18: Eos # (Auto) 0.1 10^3/uL (0.0-0.8) 07/19/25 18:25 Baso # (Auto) 0.0 10^3/uL (0.0-0.1) 07/19/25 18:25 Nucleated RBC % (auto) 0 % 07/19/25 18:25 Nucleated RBCs # 0.0 /100WBC 07/19/25 18:25 Specimen Type Arterial 07/19/25 18:17 Sample Site Radial, left 07/19/25 18:17 ABG pH 7.41 (7.35-7.45) 07/19/25 18:17 ABG pCO2 45.3 mmHg (35-45) H 07/19/25 18:17 ABG pO2 75.0 mmHg (80.0-100.0) L 07/19/25 18:17 ABG PO2/FiO2 Ratio 357 07/19/25 18:17 ABG HCO3 28.9 mmol/L (22-26) H 07/19/25 18:17 ABG Base Excess 3.7 mmol/L (-2.0-2.0) H 07/19/25 18:17 Jeff Test Pos 07/19/25 18:17 Hematocrit 32.1 % (42-52) L 07/19/25 18:17 Hgb O2 Saturation 93.2 % (95-100) L 07/19/25 18:17 Carboxyhemoglobin 1.1 %THgb (0.4-20.1) 07/19/25 18:17 Methemoglobin 1.1 % (0.4-1.5) 07/19/25 18:17 Total Hemoglobin 10.5 g/dL (14-18) L 07/19/25 18:17 O2 Delivery Device Room air 07/19/25 18:17 FiO2 21.0 % 07/19/25 18:17 Payroll Professional ID Dick 07/19/25 18:17 Sodium 138 mmol/L (136-145) 07/19/25 18:25 Potassium 4.7 mmol/L (3.5-5.1) 07/19/25 18:25 Chloride 100 mmol/L (98-107) 07/19/25 18:25 Carbon Dioxide 25 mmol/L (22-29) 07/19/25 18:25 Anion Gap 17.7 (5-19) 07/19/25 18:25 BUN 67 mg/dL (6-20) H 07/19/25 18:25 Creatinine 3.6 mg/dL (0.7-1.2) H 07/19/25 18:25 GFR Calculation 21.3 mL/min (90-130) L 07/19/25 18:25 Glucose 164 mg/dL (65-115) H 07/19/25 18:25 POC Glucose 168 mg/dL (70-110) H 07/19/25 18:18 Calculated Osmolality 309 mOsm/kg (285-295) H 07/19/25 18:25 Calcium 9.2 mg/dL (8.5-10.5) 07/19/25 18:25 Magnesium 1.9 mg/dL (1.7-2.3) 07/19/25 18:25 Total Bilirubin 0.5 mg/dL (0.15-1.2) 07/19/25 18:25 AST 25 U/L (0-40) 07/19/25 18:25 ALT 16 U/L (0-41) 07/19/25 18:25 Alkaline Phosphatase 108 U/L (40-130) 07/19/25 18:25 Ammonia 28 umol/L (16-60) 07/19/25 18:25 NT-Pro-B Natriuret Pep 48602 pg/mL (0-125) H 07/19/25 18:25 Total Protein 6.6 g/dL (6.6-8.7) 07/19/25 18:25 Albumin 3.2 g/dL (3.5-5.2) L 07/19/25 18:25 Globulin 3.4 g/dL (1.3-4.6) 07/19/25 18:25 TSH 1.05 uIU/mL (0.27-4.20) 07/19/25 18:25 All radiology interpretation(s) finalized by discharge EKG Data EKG 1: I personally reviewed and interpreted this EKG as follows: EKG interpretation date: 07/19/25 EKG interpretation time: 18:14 Interpretation: nsr hr [address] elevation qrs 99 qtc 435 Discharge Plan Discharge Patient Disposition: Home Clinical Impression: Confusion Condition: Stable Prescriptions: No Action polyethylene glycol 3350 [Miralax] 17 gram powder in packet 17 g PO DAILY dextrose [Glucose Gel] 40 % gel 15 g PO Q15M PRN (Reason: low bs) Rx Instructions: until symptoms of low blood sugar are controlled lidocaine 5 % adhesive patch,medicated 1 patch topical DAILY Rx Instructions: leave on most painful area for up to 12 hrs mupirocin 2 % ointment 1 applic topical BID Qty: 15 0RF (DME) Wheelchair pad See Rx Instructions .Route .MEDSUPPLY Qty: 1 0RF Rx Instructions: As directed trazodone 100 mg tablet 250 mg PO QPM gabapentin 300 mg capsule 300 mg PO TID Qty: 90 5RF loperamide [Anti-Diarrheal (loperamide)] 2 mg tablet See Rx Instructions .ROUTE .COMPLEX Qty: 30 0RF Dose Instruction: TAKE 2 TABLETS BY MOUTH WITH ONSET OF FOR DIARRHEA NEEDED; MAY REPEAT WITH EACH LOOSE STOOL; NO MORE THAN 8 TABLETS PER DAY Rx Instructions: TAKE 2 TABLETS BY MOUTH WITH ONSET OF FOR DIARRHEA NEEDED; MAY REPEAT WITH EACH LOOSE STOOL; NO MORE THAN 8 TABLETS PER DAY carvedilol 12.5 mg tablet See Rx Instructions .ROUTE .COMPLEX Qty: 60 3RF Dose Instruction: TAKE 1 TABLET BY MOUTH TWICE DAILY; take with a meal OR food. do not take if systolic blood pressure is below 90 OR diastolic blood pressure is below 60 Rx Instructions: TAKE 1 TABLET BY MOUTH TWICE DAILY; take with a meal OR food. do not take if systolic blood pressure is below 90 OR diastolic blood pressure is below 60 aripiprazole 15 mg tablet See Rx Instructions .ROUTE .COMPLEX Qty: 90 3RF Dose Instruction: TAKE 1 TABLET BY MOUTH EVERY MORNING FOR DEPRESSION Rx Instructions: TAKE 1 TABLET BY MOUTH EVERY MORNING FOR DEPRESSION isosorbide mononitrate 60 mg tablet extended release 24 hr See Rx Instructions .ROUTE .COMPLEX Qty: 30 0RF Dose Instruction: TAKE 1 TABLET BY MOUTH EVERY DAY FOR BLOOD FLOW; check BP PRIOR TO ADMIN, HOLD IF LESS TAHN 90/60, HOLD FOR DIALYSIS Rx Instructions: TAKE 1 TABLET BY MOUTH EVERY DAY FOR BLOOD FLOW; check BP PRIOR TO ADMIN, HOLD IF LESS TAHN 90/60, HOLD FOR DIALYSIS insulin lispro [Humalog KwikPen Insulin] 100 unit/mL insulin pen See Rx Instructions SUBCUT TID Qty: 15 5RF Rx Instructions: subcutaneously three times daily; after meals, based on low-dose sliding scale. Max daily is 60 units. lisinopril 40 mg tablet See Rx Instructions .ROUTE .COMPLEX Qty: 30 11RF Dose Instruction: TAKE 1 TABLET BY MOUTH EVERY NIGHT AT BEDTIME FOR HYPERTENSION Rx Instructions: TAKE 1 TABLET BY MOUTH EVERY NIGHT AT BEDTIME FOR HYPERTENSION famotidine 20 mg tablet See Rx Instructions .ROUTE .COMPLEX Qty: 60 3RF Dose Instruction: TAKE 1 TABLET BY MOUTH TWICE DAILY FOR HEARTBURN Rx Instructions: TAKE 1 TABLET BY MOUTH TWICE DAILY FOR HEARTBURN aspirin 325 mg tablet,delayed release (DR/EC) See Rx Instructions .ROUTE .COMPLEX Qty: 30 3RF Dose Instruction: TAKE 1 TABLET BY MOUTH EVERY DAY Rx Instructions: TAKE 1 TABLET BY MOUTH EVERY DAY benztropine 1 mg tablet See Rx Instructions .ROUTE .COMPLEX Qty: 180 1RF Dose Instruction: TAKE 1 TABLET BY MOUTH TWICE DAILY FOR INVOLUNTARY MOVEMENT Rx Instructions: TAKE 1 TABLET BY MOUTH TWICE DAILY FOR INVOLUNTARY MOVEMENT clonazepam 0.5 mg tablet 0.5 mg PO .COMPLEX Qty: 12 5RF Rx Instructions: Take 1 tablet by mouth 3 times a week before dialysis for anxiety alcohol swabs Pads, Medicated 1 pad topical DIRECTED Qty: 200 12RF Rx Instructions: Check sugars 3x daily. (DME) blood glucose control, normal [True Metrix Level 2] Solution See Rx Instructions .Route Qty: 1 11RF Rx Instructions: Check sugars 3x daily. (DME) Blood Glucose Test Strip See Rx Instructions .MEDSUPPLY Qty: 200 12RF Rx Instructions: Use as directed with glucometer to check blood sugar Check sugars 3x daily. (DME) lancets Misc See Rx Instructions .MEDSUPPLY Qty: 200 12RF Rx Instructions: Use as directed to Check sugars 3x daily. (DME) pen needle, diabetic [Pen Needle] 31 gauge x 5/16 needle See Rx Instructions .MEDSUPPLY Qty: 100 12RF Rx Instructions: Use as directed for insulin administration 3x daily. cetirizine 10 mg tablet See Rx Instructions .ROUTE .COMPLEX Qty: 90 3RF Dose Instruction: TAKE 1 TABLET BY MOUTH EVERY NIGHT AT BEDTIME FOR ALLERGIES Rx Instructions: TAKE 1 TABLET BY MOUTH EVERY NIGHT AT BEDTIME FOR ALLERGIES Thick-It Powder See Rx Instructions .ROUTE .COMPLEX Qty: 1020 3RF Dose Instruction: USE DIRECTED TO MAKE LIQUID EXTREMLY THICKENED Rx Instructions: USE DIRECTED TO MAKE LIQUID EXTREMLY THICKENED hydrocodone-acetaminophen 7.5-325 mg tablet 1 tab PO Q6H PRN (Reason: pain) 30 Days Qty: 120 0RF baclofen 10 mg tablet 10 mg PO TID PRN (Reason: muscle spasm) 30 Days Qty: 90 5RF naloxone [Narcan] 4 mg/actuation spray,non-aerosol 1 spray intranasal Q3M Qty: 2 2RF Rx Instructions: spray 1 dose into ONE nostril; alternate nostrils w each dose until help arrives (DME) WHEELCHAIR WITH SEAT BELT AND HARNESS See Rx Instructions .Route .MEDSUPPLY Qty: 1 0RF Rx Instructions: Wheelchair bound, cognitively impaired, multiple previous falls from wheelchair. amlodipine 10 mg Tablet 10 mg PO DAILY@09 multivitamin with folic acid [Daily-Sean (with folic acid)] 400 mcg tablet 1 tab PO DAILY@09 lurasidone 120 mg tablet 60 mg PO BID acetaminophen [Tylenol] 325 mg Tablet 650 mg PO QID PRN (Reason: Pain) ondansetron 4 mg tablet,disintegrating 4 mg PO Q6H PRN (Reason: nausea and vomiting) Qty: 10 0RF Discharge Orders: Discharge ED (Routine); Ordered 07/19/25 Ordered By: Oneida De Anda Referrals: Valente Harding DO [Primary Care Provider, Family Practice] - 4-7 days Discharge Diet: Advance as tolerated Discharge Activity: Resume usual activity Patient Instructions: Altered Mental Status (ED) Print Language: Finnish Coding Level of Care Code ED [employer] for Maria R Garrison
[2025-07-19 18:28] LABS: ABG PCO2 45.3 mmHg (35-45); ABG PH Result 7.41 (7.35-7.45); Arterial Blood Gas Hematocrit 32.1 % (42-52); Blood Gas Allen Test Pos; Blood Gas Operator Identificat WALCI; Blood Gas Sample Site Radial, left; Blood Gas Sample Type Arterial; Carboxyhemoglobin 1.1 %THgb (0.4-20.1); HCO3 ABG 28.9 mmol/L (22-26); Methemoglobin 1.1 % (0.4-1.5); PO2 ABG 75.0 mmHg (80.0-100.0); PO2 FiO2 Ratio Arterial Blood 357
[2025-07-19 18:30] LABS: Hematocrit 30.3 % (37-53); Hemoglobin 9.90 g/dL (11.27-16.99); Mean Corpuscular HGB Conc 32.7 g/dL (30-55); Mean Corpuscular Hemoglobin 29.6 pg (27-33); Mean Corpuscular Volume 90.7 fl (82-101); Nucleated Red Blood Cells % 0 %; Platelet Count 289 10^3/cmm (157-399); Red Blood Count 3.34 10^6/uL (3.85-5.65); White Blood Count 7.08 10^3/uL (3.29-11.43)
--- OUTSIDE RECORDS SUMMARY | 2025-07-19 18:31 | XMS_ITS | Data Portability ---
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 Recommend that the patient have a guardian to help make these decisions for him. Will create a letter that states such. [email or web address] Not available 02/17/2025 16:52:14 Plan of Treatment Reminders Order Date Submit Date Provider Last Modified By Organization Details Last Modified Time Details Appointments None recorded. Lab carbamazepi ne, serum or plasma - [place] [facility]/ BROUGHT REQ 2024 025 [facility], [address] [place] [address], [facility] [address] [facility] [place], [phone], 17:35:43 Referral None recorded. Procedures None recorded. Surgeries None recorded. Imaging None recorded. Medication Orders cetirizine 10 mg tablet 2024 025 [facility], [address] [place] [address], [address], 14:51:13 clonazepam 0.5 mg tablet 2024 025 [facility], [address] [place], [address], 5 14:47:36 gabapentin 300 mg capsule 2024 025 [facility], [address] [place] [address], [place], [address], 14:32:33 hydralazine 50 mg tablet 2024 025 [facility], [address] [place] [address], [address], 5 12:25:27 [facility] Moisturizer lotion 2024 025 [facility], [address] [place] [address], [id number], 5 13:30:18 hydralazine 50 mg tablet 2024 [facility] [address] [place] [address], [id number], 5 12:25:27 Patient TargetsNo targets recorded. Patient Instructions Encounter Date Encounter Id Patient Instructions Last Modified By Organization Details Last Modified Time 12/24/2024 [id number] Time spent with patient and coordination of care was 1 hour. [email or web address] Not available 12/27/2024 13:03:12 Reason for Referral None Reported. Results Created Date Observation Date Name Description Value Unit Range Abnormal Flag Note LastModifiedBy Organization Detail LastModifiedTime 11/15/1911/15/2024 COLOG UARD cologuard result reportable Negati ve negati ve normal NEGAT NOELLE TEST RESUL T. A negat noelle Colog uard resul t indic ates a low likel ihood that a color ectal cance r (CRC) or advan regla adeno ma (lindsay omato us polyp s with more advan regla pre-m align ant featu res) is prese nt. The [facility] that a perso n with a negat noelle Colog uard test has a color ectal cance r is less than 1 in 1500 (nega tive predi ctive value >99.9 %) or has an advan regla adeno ma is less than 5.3% (nega tive predi ctive value 94.7% ). These data are based on a prosp ectiv e cross -sect ional study of 10,00 0 indiv idual s at [place] ge risk for color ectal cance r who were scree mary with both Colog uard and colon oscop y. (Balbina West. et al, N Engl J Med 2014; 370(1 4):12 86-12 97) The patrick l value (refe rence range ) for this assay is negat noelle. COLOG UARD RE-SC REENI NG RECOM MENDA TION: Perio dic color ectal cance r scree tiara is an impor tant part of preve ntive healt hcare for asymp tomat ic indiv idual s at [place] ge risk for color ectal cance r. Follo wing a negat noelle Colog uard resul t, the Ameri can Cance r Socie ty and U.S. Multi -Soci ety Task Force scree tiara guide lines recom mend a Colog uard re-sc reeni ng inter olayinka of 3 years . Refer ences : Ameri can Cance r Socie ty Guide line for Color ectal Cance r Scree tiara: https ://shital w.can cer.o rg/ca ncer/ colon -rect al-ca ncer/ detec tion- diagn osis- stagi ng/ac s-rec ommen datio ns.ht ml.; Santo JOSE, Davidson PAULINO, Davon SMITH, Color ectal Cance r Scree tiara: Recom menda tions for Physi cians and Patie nts from the U.S. Multi -Soci ety Task Force on Color ectal Cance r Scree tiara , Mckenzie wheat y 2017; 112:1 016-1 030. TEST DESCR IPTIO N: [place] site algor ithmi c cheo sis of stool DNA-b iomar kers with hemog lobin immun oassa y. Quant itati ve value s of indiv idual bioma rkers are not repor table and are not assoc iated with indiv idual bioma rker resul t refer ence range s. Colog uard is inten ded for color ectal cance r scree tiara of adult s of eithe r sex, 45 years or older , who are at [facility] for color ectal cance r (CRC) . Colog uard has been appro jean marie for use by the U.S. FDA. The perfo rmanc e of Colog uard was estab lishe d in a cross secti onal study of [facility] adult s aged 50-84 . Colog uard perfo rmanc e in patie nts ages 45 to 49 years was estim ated by sub-g roup cheo sis of near- age group s. Colon oscop ies perfo rmed for a posit noelle resul t may find as the most clini dipika signi fican t lesio n: color ectal cance r [4.0% ], advan regla adeno ma (incl uding sessi le tacos alise polyp s great er than or equal to 1cm diame ter) [20%] or non- advan regla adeno ma [31%] ; or no color ectal neopl eleazar [45%] . These estim ates are deriv ed from a prosp ectiv e cross -sect ional scree tiara study of 0 indiv idual s at [facility] for color ectal cance r who were scree mary with both Colog uard and colon oscop y. (Balbina Huynh et al, N Engl J Med 2014; 370(1 4):12 86-12 97.) Colog uard may produ ce a false negat noelle or false posit noelle resul t (no color ectal cance r or preca ncero us polyp prese nt at colon oscop y follo w up). A negat noelle Colog uard test resul t does not guara ntee the absen ce of CRC or advan regla adeno ma (pre- cance r). The curre nt Colog uard scree tiara inter olayinka is every 3 years . (Amer ican Cance r Socie ty and U.S. Multi -Soci ety Task Force ). Colog uard perfo rmanc e data in a 0 patie nt pivot al study using colon oscop y as the refer ence metho d can be acces sed at the follo wing locat ion: www.e xactl abs.c om/re kate . Addit ional descr iptio n of the Colog uard test proce ss, warni ngs and preca ution s can be found at www.c ana aiyana.c om. Not Available [facility] [address], [place], [address], 11/22/2024 06:25:35 01/13/20 25 01/16/2025 CARBA MAZEP INE, TOTAL carbamazepin e, total 7.7 mcg/m L 4.0-12 .0 This test was devel tejas and its cheo tical perfo rmanc e shanel cteri stics have been deter mined by [facility] [place] [place]. It has not been clear ed or appro jean marie by the U.S. Food and Drug Admin istra tion. This assay has been valid ated pursu ant to the CLIA regul ation s and is used for clini artem purpo ses. Not Available [facility] [address] [place], [address], 01/16/2025 17:35:43 Result Notes None recorded. Problems Name Problem SNOMED Code Status Onset Date Resolution Date Notes Provider Name and Address Organization Details Recorded Time Essential hypertens ion 03991565 Active 2022 KIMMIE zhang [facility] L.LTimothyCTimothy 3 10:39:35 Depressiv e disorder 32432922 Active 2022 KIMMIE zhang [facility], Shane.LTimothyCTimothy 3 10:39:35 Anxiety 89406994 Active 2022 KIMMIE zhang [facility], L.LTimothyCTmiothy 3 10:39:35 Hyperlipi demia 06257985 Active 2022 KIMMIE zhang [facility] 3 10:39:35 Involunta ry movement 426921336 Active 2022 KIMMIE zhang, [facility] 3 10:39:35 Dry skin 47906927 Completed 202212/18/2024 Riya Winkler leatha, [facility] 5 10:09:09 Seizure 06918642 Active 2022 KIMMIE zhang, [facility] 3 10:39:35 Schizophr enia 86429698 Active 2022 KIMMIE zhang, [facility] 3 10:39:35 Type 1 diabetes mellitus 61590981 Active 2022 KIMMIE zhang, [facility] 3 10:39:35 Bilateral hearing loss 00675753 Active 2022 KIMMIE zhang, [facility] 3 10:39:35 Physical deconditi oning [id number] 02 Completed 202212/18/2024 Riya Winkler leatha [facility] 5 10:12:56 Daytime somnolenc e 946023055294 Active 2022 Riya Winkler leatha [facility] 5 10:10:32 Insomnia 168419632 Completed 202212/18/2024 Riya Winkler leatha, [facility] 5 10:13:14 Hypoglyce digna 911265535 Active 2022 Riya zhang [facility] 5 10:11:40 Chronic kidney disease stage 5 880160430 [facility] 20[facility] 10:10:14 Increased frequency of urination 797545042 Completed 202312/18/2024 [facility] 10:11:50 Dry skin dermatiti s 539065329 Completed 202312/18/2024 [facility] 10:20:14 Dry skin dermatiti s 654094272 Active 2023 [facility] 10:20:14 Low back pain 440297493 Active 2023 [facility] 10:11:57 Compressi on fracture of lumbar spine 254555065 Active 2023 Riya Winkler [facility] 5 10:10:55 Thickened nails 492389990 Active 2023 Riya Winkler [facility] 5 10:12:43 Gastroeso phageal reflux disease 272763648 Active 2023 [facility] 10:11:34 Spinal stenosis of lumbar region 53239185 Active 2023 [facility] 10:12:09 Chronic pain 08121419 Active 2023 Riya Winkler [facility] 5 10:10:21 Type 2 diabetes mellitus 07965888 Active 2023 Riya Winkler null, [facility] 5 10:13:19 Chronic insomnia 371820381 [facility] 2023 [facility] 10:10:08 Strain of rotator cuff of shoulder 088199467 Completed 202312/18/2024 Riya zhang, [facility] 5 10:12:28 Chronic back pain 345059959 Active 2023 Riya Peterson leatha, [facility] 5 10:10:04 Weakness of bilateral lower limb Active 2023 [facility] 10:13:37 Bilateral shoulder joint pain 099570509772 77768 Active 2023 [facility] 10:09:39 Syncope 693860087 Completed 202312/18/2024 [facility] 5 10:12:37 Recurrent falls 958884548 Active 2023 Riya Peterson leatha [facility] 5 10:12:03 Chapping of lips 647411902 Completed 202412/18/2024 [facility] 10:20:24 Chapping of lips 229584258 Active 2024 [facility] 10:20:24 Altered mental status 139999494 Active 2024 Riya Peterson leatha [facility] 5 10:09:28 Dysphagia 06245792 Active 2024 Riya zhang, [facility] 5 10:11:20 Romina steve 816564359 Active 2024 Connor Sneed [facility] 5 14:30:35 Pressure injury of sacral region of back stage II Active 2024 Connor zhang [facility] 5 14:30:42 Allergic rhinitis 32939473 Active 2024 Nj Gilliam MD [address] [place] [address], [id number] , [facility] 5 16:01:58 Problem Notes None recorded. Medical Equipment None Reported. Allergies Allergen ID Allergen Name Allergen Category Reaction Reaction Severity Criticality Documentation Date Start Date Code Code System Note Provider Name and Address Organization Details Recorded Time 46439 No known allergy (situatio n) Not available Not available Not available Not available 05/13/2024 35103 [id number] SNOMED Briana Mathur [facility] 4 07:57:56 No known drug allergies Medications Name Sig Start Date Stop Date Status Note LastModified by Organization Details LastModified Time aspercrem e lidcne creme 2.7oz apply thin layer TO dialysis access ON dialysis DAYS (sunday, y and sunday) ONE hour before treatmen t 03/10 completed Not Available Not Available Not Available multivita min tablet Take 1 tablet every day by oral route as directed . 03/10 completed Not Available Not Available Not Available Anti-Diar rheal (loperami de) 2 mg tablet TAKE 2 TABLETS BY MOUTH with ONSET of diarrhea ; MAY REPEAT with EACH loose stool. NO more THAN EIGHT TABLETS DAILY active Not Available Not Available No t Available hydralazi ne 10 mg tablet TAKE 1 TABLET BY MOUTH FOUR TIMES DAILY 02/04 completed Not Available Not Available Not Available BD Alcohol Swabs APPLY ONE PAD FOUR TIMES DAILY BEFORE MEALS active Not Available Not Available No t Available carvedilo l 25 mg tablet TAKE 1 TABLET BY MOUTH TWICE DAILY 03/10 completed Not Available Not Available Not Available acetamino phen 325 mg tablet TAKE 2 TABLETS BY MOUTH EVERY 4 HOURS NEEDED FOR PAIN; NOT TO EXCEED 12 TABLETS IN 24 HOURS 2024 active Not Available Not Available Not Avai lable carvedilo l 12.5 mg tablet Take 1 tablet twice a day by oral route for 30 days, for TAKE ONE TABLET BY MOUTH TWICE DAILY AT 9am AND 9pm. must TAKE WITH A meal OR food. DO not TAKE IF systolic Blood PRESSURE is below 90 OR diastoli c blood PRESSURE is below 60. 2024 active Not Available Not Available Not Avai lable trazodone 50 mg tablet TAKE 1 TABLET BY MOUTH EVERY DAY AT BEDTIME 10/30 completed increase d to 100mg by Enrique on 07/23/23 . Not Available Not Available Not Available cetirizin e 10 mg tablet Take 1 tablet every day by oral route. 2024 active Not Available Not Available Not Avai lable atorvasta tin 10 mg tablet TAKE 1 TABLET BY MOUTH EVERY DAY AT BEDTIME active Not Available Not Available No t Available aspirin 325 mg tablet Take 1 tablet every day by oral route. 10/07 completed Not Available Not Available Not Available hydrocodo ne 5 mg-acetam inophen 325 mg tablet TAKE 1 TABLET BY MOUTH EVERY DAY NEEDED 03/05 completed Not Available Not Available Not Available Thick-It oral powder USE DIRECTED TO MAKE LIQUID EXTREMLY THICKENE D 2024 active Not Available Not Available Not Avai lable diphenhyd ramine-zi nc acetate 1 %-0.1 % topical cream apply every 12 hours to AFFECTED AREA 04/13 completed Not Available Not Available Not Available lisinopri l 20 mg tablet Take 1 tablet every day by oral route for 90 days. 2023 active Not Available Not Available Not Avai lable ondansetr on HCl 4 mg tablet TAKE 1 TABLET BY MOUTH EVERY 6 HOURS NEEDED active Not Available Not Available No t Available isosorbid e mononitra te ER 30 mg tablet,ex tended release 24 hr TAKE 2 TABLETS (60MG) BY MOUTH ONCE DAILY FOR BLOOD FLOW active Not Available Not Available No t Available clonazepa m 0.5 mg tablet 1 tablet daily before dialysis on M, W, F 2024 active Not Available Not Available Not Avai lable clonidine HCl 0.3 mg tablet TAKE 1 TABLET BY MOUTH EVERY 8 HOURS 12/24 completed Not Available Not Available Not Available Milk of Magnesia 400 mg/5 mL oral suspensio n take 20ml BY MOUTH TWICE DAILY NEEDED FOR constipa tion 12/24 completed Not Available Not Available Not Available Eucerin topical cream apply topicall y EVERY DAY 11/11 completed Not Available Not Available Not Available hydralazi ne 25 mg tablet Take 1 tablet 4 times a day by oral route. 02/13 completed Not Available Not Available Not Available chlorthal idone 25 mg tablet TAKE 1 TABLET BY MOUTH EVERY DAY 12/24 completed Not Available Not Available Not Available ciproflox acin 500 mg tablet TAKE 1 TABLET BY MOUTH TWICE DAILY FOR 7 DAYS 12/29 completed Not Available Not Available Not Available sulfameth oxazole 800 mg-trimet hoprim 160 mg tablet TAKE 1 TABLET BY MOUTH EVERY 12 HOURS X 10 DAYS 12/24 completed Not Available Not Available Not Available Ensure High Protein oral liquid Take 8 mL 3 times a day by oral route with meal(s) for 90 days. 03/10 completed Not Available Not Available Not Available carbamaze pine 200 mg tablet TAKE 1 TABLET BY MOUTH THREE TIMES DAILY FOR CONVULSI ON 2024 active Not Available Not Available Not Avai lable isosorbid e mononitra te ER 60 mg tablet,ex tended release 24 hr TAKE 1 TABLET BY MOUTH EVERY DAY FOR BLOOD FLOW; check BP PRIOR TO ADMIN, HOLD IF LESS TAHN 90/60, HOLD FOR DIALYSIS 2024 active Not Available Not Available Not Avai lable clonidine HCl 0.2 mg tablet Take 1 tablet 3 times a day by oral route. 04/06 completed Not Available Not Available Not Available famotidin e 20 mg tablet TAKE 1 TABLET BY MOUTH TWICE DAILY FOR HEARTBUR N 2024 active Not Available Not Available Not Avai lable magnesium oxide 400 mg (241.3 mg magnesium ) tablet TAKE ONE TABLET BY MOUTH THREE TIMES DAILY 02/21 completed Not Available Not Available Not Available aspirin 325 mg tablet,de layed release TAKE 1 TABLET BY MOUTH EVERY DAY 2024 active Not Available Not Available Not Avai lable trazodone 100 mg tablet Take 2 tablets every day by oral route at bedtime for 90 days. 2024 active WE DO NOT FILL THIS MEDICATI ON, PTS PYSCHIAT RIST FILLS THIS MEDICATI ON. Not Available Not Available Not Available OneTouch Ultra Test strips USE TO CHECK BLOOD SUGAR THREE TIMES DAILY active Not Available Not Available No t Available amlodipin e 10 mg tablet TAKE 1 TABLET BY MOUTH EVERY DAY 2024 active not on current emr through [employer]. Not Available Not Available Not Available hydrocodo ne 7.5 mg-acetam inophen 325 mg tablet TAKE ONE TABLET BY MOUTH EVERY 6 HOURS NEEDED FOR PAIN 04/18 completed Not Available Not Available Not Available cephalexi n 500 mg capsule take 1 capsule BY MOUTH TWICE DAILY for 7 days 05/13 completed Not Available Not Available Not Available pantopraz ole 40 mg tablet,de layed release TAKE 1 TABLET BY MOUTH EVERY DAY 12/24 completed Not Available Not Available Not Available erythromy geoffrey 5 mg/gram (0.5 %) eye ointment Apply into LEFT EYE FOUR TIMES DAILY for SEVEN DAYS active Not Available Not Available No t Available trazodone 150 mg tablet TAKE 1 TABLET BY MOUTH AT BEDTIME 09/03 completed Not Available Not Available Not Available lisinopri l 10 mg tablet TAKE 1 TABLET BY MOUTH AT BEDTIME 09/03 completed Not Available Not Available Not Available lidocaine 5 % topical patch APPLY 1 PATCH BY TOPICAL ROUTE ONCE DAILY BEFORE DIALYSIS (MAY WEAR UP TO 12HOURS. ) 2023 active Not Available Not Available Not Avai lable glucose 4 gram chewable tablet 1 tablet as need for BS less than 60 12/24 completed Not Available Not Available Not Available benztropi ne 1 mg tablet Take 1 tablet twice a day by oral route. 2024 active not on current emr through [employer]. Not Available Not Available Not Available docusate sodium 100 mg capsule TAKE ONE CAPSULE BY MOUTH TWICE DAILY 02/04 completed Not Available Not Available Not Available gabapenti n 300 mg capsule Take 1 capsule every day by oral route at bedtime. 2024 active Not Available Not Available Not Avai lable lisinopri l 20 mg-hydroc hlorothia zide 25 mg tablet TAKE TWO TABLETS BY MOUTH EVERY DAY active Not Available Not Available No t Available hydralazi ne 50 mg tablet Take 1 tablet 4 times a day by oral route for 90 days. 02/13 completed Not Available Not Available Not Available furosemid e 20 mg tablet TAKE ONE TABLET BY MOUTH DAILY 02/04 completed Not Available Not Available Not Available polyethyl ashley glycol 3350 17 gram/dose oral powder DISSOLVE 17grams in liquid AND drink DAILY NEEDED FOR CONSTIPA TION active Not Available Not Available No t Available lisinopri l 40 mg tablet TAKE 1 TABLET BY MOUTH EVERY DAY 02/04 completed Not Available Not Available Not Available cefdinir 300 mg capsule take 1 capsule BY MOUTH TWICE DAILY 12/24 completed Not Available Not Available Not Available metoclopr amide 10 mg tablet TAKE 1 TABLET BY MOUTH EVERY 8 HOURS NEEDED FOR 90 DAYS 07/01 completed Not Available Not Available Not Available amoxicill in 875 mg-potass ium clavulana te 125 mg tablet TAKE 1 TABLET BY MOUTH TWICE DAILY for 10 days 09/16 completed Not Available Not Available Not Available amoxicill in 500 mg-potass ium clavulana te 125 mg tablet TAKE ONE TABLET BY MOUTH DAILY for SEVEN DAYS 03/10 completed Not Available Not Available Not Available Uniderm Moisturiz er lotion Apply 1 applicat ion twice a day by topical route as needed. 2024 active Not Available Not Available Not Avai lable Bactrim 400 mg-80 mg tablet Take 1 tablet every 12 hours by oral route for 10 days. 12/24 completed Not Available Not Available Not Available escitalop evangelista 10 mg tablet TAKE 1 TABLET BY MOUTH EVERY DAY for 7 days 02/04 completed Not Available Not Available Not Available Lexapro 20 mg tablet Take 1 tablet every day by oral route. 03/19 completed Not Available Not Available Not Available aripipraz ole 10 mg tablet TAKE 1 TABLET BY MOUTH EVERY MORNING 03/10 completed Not Available Not Available Not Available aripipraz ole 15 mg tablet Take 1 tablet every day by oral route. 2024 active Not Available Not Available Not Avai lable aripipraz ole 20 mg tablet TAKE 1 TABLET BY MOUTH EVERY DAY 11/02 completed Not Available Not Available Not Available insulin aspart (U-100) 100 unit/mL (3 mL) subcutane ous pen inject SUBCUTAN EOUSLY FOUR TIMES DAILY PER sliding scale NEEDED with meals. max of 56 units EVERY DAY 12/29 completed Not Available Not Available Not Available nitrofura ntoin monohydra te/macroc rystals 100 mg capsule take 1 capsule BY MOUTH EVERY TWELVE HOURS FOR SEVEN DAYS 12/24 completed Not Available Not Available Not Available fenofibra te 160 mg tablet TAKE 1 TABLET BY MOUTH EVERY DAY FOR HYPERLIP IDEMIA 2024 active Not Available Not Available Not Avai lable multivita min 1 tab everyday 03/30 completed Not Available Not Available Not Available sodium chloride 1,000 mg soluble tablet TAKE ONE TABLET BY MOUTH THREE TIMES DAILY 12/24 completed Not Available Not Available Not Available CeraVe topical cream apply every 12 hours as needed 04/13 completed Not Available Not Available Not Available Glucose Gel 40 % oral gel Take 15 g as needed by oral route. 2024 active Not Available Not Available Not Avai lable FeroSul 325 mg (65 mg iron) tablet TAKE 1 TABLET BY MOUTH EVERY DAY 02/21 completed Not Available Not Available Not Available Lantus Solostar U-100 Insulin 100 unit/mL (3 mL) subcutane ous pen inject FIVE units SUBCUTAN EOUSLY EVERY DAY at bedtime 11/02 completed Not Available Not Available Not Available melatonin 5 mg tablet TAKE 2 TABLETS BY MOUTH EVERY DAY AT BEDTIME 11/02 completed Not Available Not Available Not Available Maupin Cough Drops 3.2 mg Take 1 lozenge every 2 hours by mucous route as needed, for sore throat or cough. 01/09 completed d/c d/t choking hazard Not Available Not Available Not Available melatonin 10 mg tablet Take 1 tablet every day by oral route at bedtime. 11/02 completed Not Available Not Available Not Available lurasidon e 120 mg tablet TAKE ONE TABLET BY MOUTH EVERY NIGHT AT BEDTIME WITH DINNER FOR SCHIZOPH ALIYAH 2024 active Not Available Not Available Not Avai lable TRUEplus Lancets 33 gauge test THREE TIMES DAILY 2023 active Not Available Not Available Not Avai lable TRUEplus Lancets 28 gauge test 4 TIMES DAILY active Not Available Not Available No t Available Vicks DayQuil Severe Cold-Flu 5 mg-10 mg-325 mg-200 mg tablet Take 1 tablet 3 times a day by oral route as needed, for congesti on. 2023 active Not Available Not Available Not Avai lable Glucerna Advance 1 bottle if refusing meals for suppleme nt active Not Available Not Available No t Available lurasidon e 60 mg tablet TAKE 1 TABLET BY MOUTH EVERY DAY 02/04 completed Not Available Not Available Not Available Blistex Medicated 0.6 %-0.5 %-1.1 %-0.5 % topical ointment 1 applicat ion to lips BID as needed 2024 active Not Available Not Available Not Avai lable acetamino phen 325 mg capsule Take 2 capsules every 4 hours by oral route as needed. 03/19 completed Not Available Not Available Not Available Narcan 4 mg/actuat ion nasal spray CALL 911, USE 1 SPRAY IN ONE NOSTRIL. MAY REPEAT IN ALTERNAT E NOSTRILS EVERY 3 MINUTES NEEDED IF NO OR MINIMAL RESPONSE . 03/05 completed Not Available Not Available Not Available DEKAs Essential 600 mcg-50 mcg-101 mg-1,000 mcg capsule TAKE ONE CAPSULE BY MOUTH EVERY DAY FOR SUPPLEME NT 2024 active Not Available Not Available Not Avai lable TechLITE Pen Needle 31 gauge x 5/16 USE DIRECTED TO administ er insulin FOUR TIMES DAILY active Not Available Not Available No t Available TRUEplus Glucose 3.75 gram chewable tablet CHEW ONE TABLET BY MOUTH NEEDED FOR blood sugar less THAN 60 12/24 completed Not Available Not Available Not Available OneTouch Ultra2 Meter USE DIRECTED active Not Available Not Available No t Available albuterol sulf 90 mcg/actua tion breath activated powder inhaler,s ensor Inhale 2 puffs every 6 hours by inhalati on route as needed. 04/13 completed Not Available Not Available Not Available Daily-Vit e (with folic acid) 400 mcg tablet TAKE 1 TABLET BY MOUTH EVERY DAY DIRECTED 03/10 completed Not Available Not Available Not Available Vitals Date Recorded Body height Body temperature Oxygen saturation Oxygen saturation in Arterial blood by Pulse oximetry Heart rate Systolic And Diastolic Provider Name and Address Organization Details Last Updated DateTime 175.26 cm 97.8 [degF] 97 % 97 % 73 /min 144/84 mm[Hg] [facility] 12:20:00 Date Recorded Body height Respiratory rate Body temperature Heart rate Oxygen saturation Oxygen saturation in Arterial blood by Pulse oximetry Systolic And Diastolic Provider Name and Address Organization Details Last Updated DateTime 175.26 cm 18 /min 97.5 [degF] 76 /min 97 % 97 % 142/78 mm[Hg] Connor Sneed [facility] 12:20:44 Date Recorded Body height Body temperature Systolic And Diastolic Provider Name and Address Organization Details Last Updated DateTime 02/13/2025 175.26 cm 97.8 [degF] 140/80 mm[Hg] [facility] 02/13/2025 12:05:06 Date Recorded Body height Body mass index (BMI) Body weight Body temperature Oxygen saturation Oxygen saturation in Arterial blood by Pulse oximetry Heart rate Systolic And Diastolic Provider Name and Address Organization Details Last Updated DateTime 175.26 cm 17.9 kg/m2 74029.6 8 g 97.7 [degF] 97 % 97 % 90 /min 116/78 mm[Hg] Tsephania [facility] 15:30:11 Social History Question Answer Notes LastModified by Organizat ion Details LastModified Time Tobacco Smoking Status Current Every Day Smoker Riya zhang [facility] 09/09/2024 10:25:05 What Is Your Level Of Caffeine Consumption? Moderate Information not available 12/24/2024 What Was The Date Of Your Most Recent Tobacco Screening? 03/10/2025 [email or web address] Information not available 03/10/2025 Which Types Of Nicotine-free Products Have You Used? Vape [email or web address] Information not available 09/09/2024 Sex: Unknown Functional Status Question Answer Note LastModified by Organizat ion Details LastModified Time Do you use any illicit or recreational drugs? No [email or web address] Information not available 09/09/2024 What is your level of alcohol consumption? None [email or web address] Information not available 09/09/2024 Do you or have you ever used any nicotine-free cigarettes, vape, or chewing tobacco? Yes Information not available 09/09/2024 Mental Status None recorded. Family History Nothing Reported. Medical History No medical history recorded. Immunizations Vaccine Type Date Status Note Provider Nam e and Address Organization Details Recorded Time COVID-19, mRNA, LNP-S, PF, 100 mcg/0.5mL dose or 50 mcg/0.25mL dose 1 completed KIMMIE zhang [facility] 03/16/2023 17:17:02 COVID-19, mRNA, LNP-S, PF, 100 mcg/0.5mL dose or 50 mcg/0.25mL dose 1 completed KIMMIE zhang [facility] 03/16/2023 17:17:02 pneumococcal polysaccharide PPV23 5 completed KIMMIE zhang [facility] 03/16/2023 17:17:02 influenza, unspecified formulation 1 completed KIMMIE zhang [facility] 03/16/2023 17:17:02 Tdap 5 completed KIMMIE zhang [facility] 03/16/2023 17:17:02 Tdap 3 completed KIMMIE zhang [facility] 03/16/2023 17:17:02 Influenza, split virus, trivalent, preservative 3 completed KIMMIE zhang, [facility] 03/16/2023 17:17:02 Hep B, adult 4 completed KIMMIE HERZOG null, [facility] 03/16/2023 17:17:02 Hep B, adult 3 completed KIMMIE HERZOG null, [facility] 03/16/2023 17:17:02 Hep A, adult 3 completed KIMMIE HERZOG null, [facility] 03/16/2023 17:17:02 Influenza, split virus, quadrivalent, PF 1 completed KIMMIE zhang, [facility] 03/16/2023 17:17:02 Influenza, split virus, quadrivalent, PF 8 completed KIMMIE HERZOG null, [facility] 03/16/2023 17:17:02 Influenza, split virus, quadrivalent, PF 3 completed MELINA zhang, [facility] 06/14/2023 14:48:35 Past Encounters Encounter ID Performer Location Encounter Start Date Encounter Closed Date Diagnosis/Indication Diagnosis SNOMED-CT Code Diagnosis ICD10 Code Diagnosis IMO Codes Diagnosis Note [id number] Nj Gilliam MD [facility] ([facility]) [address] [place] [address] 03/16/2023 17:00:32 03/16/2023 17:55:10 Type 1 diabetes mellitus 68315835 E10.8 Continue insulin. Order Dexcom. Impaired mobility 300649 05 Z74.09 We will send referral for PT and OT Bilateral hearing loss 19133855 H91.93 Depressive disorder 3448 9007 F32.A Concerned that the Lexapro may be contribute to the patient's insomnia. Recommend coming off the medication . We will readdress this at next visit. Anxiety 26991956 F41.9 Essential hypertension 32635060 I10 Blood pressure is currently controlled . Hyperlipidemia 01200822 E78.5 Involuntary movement 267 391093 R25.9 Schizophrenia 61131657 F 20.9 Recommend that the patient be establishe d with psychiatry Seizure 06229276 R56.9 Continue antiseizur e medication s. [id number] Nj Gilliam MD [facility] ([facility]) [address] [place] [phone] 5 03/23/2023 16:54:47 03/23/2023 18:09:58 Type 1 diabetes mellitus 69312763 E10.8 We will add sliding scale insulin for him to administer with his mealtime insulin. This will start at a blood sugar of 150 with addition of 1 unit to his normal mealtime insulin with an additional unit of insulin for every 50 points above 150. Glucose tabs provided for 1 blood sugar drops below 60. Caregivers were instructed to not give insulin if the patient is not going to eat within 15 minutes. [id number] JOEL CASTILLO [facility] ([facility]) [address] [place] [address] [phone] 5 03/30/2023 13:48:47 04/14/2023 21:36:37 Chest pain 85997983 R07.9 Due to elevated BP over the past 18 hours, DAMIAN, increased fatigue, and chest pain that radiates to the left arm, referring to ED. Report called by VU Parra to [facility] ED. Caregivers agreed to take patient to ED. Will follow up with PCP pending ED discharge and diagnosis. [id number] Dariusz Preciado MD [facility] ([facility]) [address] [place] [address] [id number] 5 04/06/2023 09:49:54 04/06/2023 11:31:07 Essential hypertension 87050414 I10 d/c lisinopril /hctzchlor thalidone Uncontroll ed type 1 diabetes mellitus 147523882 E10.65 Chest pain 30653900 R07. 9 [id number] Dariusz Preciado MD [facility] ([facility]) [address] [place] [id number] 5 04/16/2023 12:17:59 04/16/2023 13:56:08 Urinary incontinence 555144654 R32 Uncontroll ed type 2 diabetes mellitus 739917890 E11.65 ssi changedif fsbs isabove 400 unitsreche ck fsbs q 2 hours and give sliding scale as written. once under 300 resume fsbs qac and qhs Essential hypertension 54799042 I10 at last visit d/c lisinopril /hctzchlor thalidoneh as some lower bps now. in a much safer range overall will leave further fine tuning and possible prn to his pcp. [id number] Nj Gilliam MD [facility] ([facility]) [address] [place] [address] [id number] 5 04/30/2023 12:12:50 04/30/2023 16:54:46 Bilateral hearing loss 10805762 H91.93 We will send referral to audiologis t to discuss hearing loss and hearing aids. Physical deconditioning 1684209528 9102 R68.89 Patient does have significan t physical disability but this would likely improve with therapy. We will also provide order today for walk for with seat to help him ambulate easier and safer. Daytime somnolence 41445 32752 00 R40.0 Likely related to medication s. The likely culprits is either clonidine and/or gabapentin . We will start by stopping clonidine and monitoring blood pressure. We will address any blood pressure issues coming off the medication . If no improvemen t is noted that gabapentin may be the likely culprit Insomnia 136988383 G47.0 0 The patient is sleeping a lot during the day and having trouble sleeping at night. We will start melatonin to see if this helps. We will consider other sleep agents if necessary. Type 1 mindy betes mellitus 49510654 E10.8 Continue blood sugar management [id number] Nj Gilliam MD [facility] ([facility]) [address] [place] [address] [id number] 5 05/23/2023 15:41:39 05/23/2023 17:05:31 Hypoglycemia 458653945 E16.2 patient was only briefly evaluated and sent to the ER due to mental status changes 2/2 hypoglycem ia. [id number] Nj Gilliam MD [facility] ([facility]) [address] [place] [address] [id number] 5 06/14/2023 14:03:23 06/14/2023 16:32:37 Insomnia 034847733 G47.00 The patient has had some mild improvemen t with melatonin so we will add trazodone to help with attaining sleep. Essential hypertension 06181052 I10 Blood pressure is currently controlled . Hyperlipidemia 29727801 E78.5 We will check lipids today. Type 1 mindy betes mellitus 58171801 E10.8 Continue blood sugar management Active or passive immunization 383166226 Z23 Flu shot given Tuberculos is screening 761753514 Z11.[address] TB test next week as needed for his halfway status. Adult heal th examination 992295037 Z00.00 Overall the patient is fairly stable. Was still having some fluctuatio n in his blood sugars but this is being managed well by the halfway. Patient is ambulating more and working with physical therapy. No other changes needed at this time. [id number] Nj Gilliam MD [facility] ([facility]) [address] [place] [address] [id number] 5 07/13/2023 11:14:18 07/13/2023 12:33:18 Type 1 diabetes mellitus 91838464 E10.8 Discussed blood sugar management with patient and caregivers . Patient is still having significan tly elevated blood sugars so we will increase his mealtime dose to 10 units plus sliding scale. We will also increase his long-actin g insulin to 10 units at bedtime. They were encouraged to continue to check his blood sugar fasting and report those next week. We will titrate his Lantus up until fasting blood sugar is better controlled . Chronic ki dney disease stage 5 940060379 N18.5 Patient has significan t elevated creatinine and low GFR consistent with stage V chronic kidney disease. Nephrology did not want to see the patient at [facility] so we will send referral to new facility. [id number] Nj Gilliam MD [facility] ([facility]) [address] [place] [address] [id number] 5 09/21/2023 10:09:03 09/21/2023 15:55:12 Essential hypertension 88131603 I10 Blood pressure is currently controlled . Type 1 mindy betes mellitus 96807600 E10.8 Patient's blood sugars are doing much better. Discussed the importance of following diabetic diet and monitoring blood sugars especially given his kidney disease. Chronic ki dney disease stage 5 727281580 N18.5 Continue to follow with nephrology . Patient will likely need dialysis at some point. Discussed the importance of making appointmen ts with the patient and he expresses understand ing. [id number] Nj Gilliam MD [facility] ([facility]) [address] [place] [address] [id number] 5 10/17/2023 10:12:44 10/17/2023 12:54:25 Tuberculosis screening 752742460 Z11.[address] TB test [id number] Nj Gilliam MD [facility] ([facility]) [address] [place] [address] [id number] 5 11/02/2023 09:29:48 11/02/2023 13:24:36 Increased frequency of urination 289276778 R35.0 Will check UA to make sure that there is no signs of infection. Otherwise we will provide bedside commode and depends prescripti ons today. Type 1 mindy betes mellitus 21248567 E10.8 Continue current sliding scale and follow-up with Dr. Cordova. [id number] Nj Gilliam MD [facility] ([facility]) [address] [place] [address] [id number] 5 11/20/2023 14:54:47 11/20/2023 16:31:57 Dry skin dermatitis 499031482 L85.3 Schizophrenia 83399521 F 20.9 Continue follow-ups with psychiatry but we will go ahead and increase his Abilify Type 1 mindy betes mellitus 88910377 E10.8 Continue current sliding scale and follow-up with Dr. Cordova. Essential hypertension 41903529 I10 Counseled the patient on the importance of monitoring blood pressure and he agrees that he will be compliant with blood pressure checks. Recommend checking blood pressure daily for the next week and provide those readings to ensure blood pressure is controlled . Chronic ki dney disease stage 5 050306576 N18.5 Continue to follow with nephrology . Patient will likely need dialysis at some point. Discussed the importance of making appointmen ts with the patient and he expresses understand ing. [id number] Nj Gilliam MD [facility] ([facility]) [address] [place] [address] [id number] 5 01/09/2024 11:41:28 01/09/2024 12:26:05 Essential hypertension 01183528 I10 Patient needs to continue with his blood pressure management and follow-up with nephrology . Chronic ki dney disease stage 5 171932078 N18.5 Continue follow-up with nephrology . Will send referral for vascular surgeon for line placement. Patient is currently on board with dialysis but he does have a history of noncomplia nce. Central line placement initially is recommende d for this patient and consider fistula for long-term dialysis. Low back pain 482087465 M54.50 On his recent fall will obtain x-rays for further evaluation . Physical deconditioning 3334864963 9102 R68.89 Patient does have significan t physical disability but this would likely improve with therapy. [id number] Nj Gilliam MD [facility] ([facility]) [address] [place] [address] [phone] 5 01/14/2024 16:04:49 01/15/2024 12:07:09 Compression fracture of lumbar spine 731753902 M48.56XD Will send him pain medication to help with pain management . It is recommende d that we proceed with MRI for further evaluation of his back. Chronic ki dney disease stage 5 464632622 N18.5 Will check labs today including. B surface imaging as requested. [id number] Nj Gilliam MD [facility] ([facility]) [address] [place] [address] [id number] 5 01/23/2024 10:57:15 01/23/2024 11:58:36 Thickened nails 240217590 Q84.5 Sent referral to podiatry for foot and nail care. Located nail on the partially avulsed wound was trimmed and wrapped. No further interventi on at this time. Compressio n fracture of lumbar spine 067667570 M48.56XD Patient has MRI scheduled for January 29. Will send in referral to Dr. Simmons for follow-up after his MRI. It was instructed to allow for assistance with transfer and position. The patient expresses understand ing. If care is exceeding the abilities of current residence and fpc placement would be recommende d. Recommend pursuing [facility] given the patient's poor insight. [id number] Nj Gilliam MD [facility] ([facility]) [address] [place] [address] [id number] 5 02/05/2024 12:48:51 02/05/2024 14:28:26 Chronic pain 71284281 G89.29 Will continue gabapentin daily at bedtime. Continue aspirin every day. Gastroesop hageal reflux disease 240503357 K21.9 Will start Pepcid to help control his reflux symptoms. Spinal kamron nosis of lumbar region 42680359 M48.061 Reviewed MRI results with patient and caregivers . Referral pending. Chronic ki dney disease stage 5 999404662 N18.5 Continue nephrology follow-up and dialysis as planned. Caregivers have plan to evaluate catheter daily. [id number] Nj Gilliam MD [facility] ([facility]) [address] [place] [address] [id number] 5 03/04/2024 12:34:34 03/04/2024 13:00:01 Low back pain 669598108 M54.50 He is more due to transfers than anything. Continue to use gait belt for safety. Start physical therapy to help rehab and hopefully with pain relief. Essential hypertension 81675938 I10 Patient needs to continue with his blood pressure management and follow-up with nephrology . Type 1 mindy betes mellitus 90389184 E10.8 Continue current sliding scale and follow-up with Dr. Cordova. End stage renal failure on dialysis 223943517 Z99.2 Continue dialysis. [id number] Nj Gilliam MD [facility] ([facility]) [address] [place] [address] [id number] 5 03/26/2024 11:49:47 03/26/2024 12:25:50 Chronic insomnia 866387143 F51.04 Increase his trazodone to 150 mg nightly Type 1 mindy betes mellitus 25734891 E10.8 Continue current sliding scale and follow-up with Dr. Cordova. Prescripti on sent to the pharmacy with sliding scale attached and the maximum daily insulin usage. Strain of rotator cuff of shoulder 870984224 S46.011A Likely a strain of the rotator cuff. Recommend physical therapy initially. [id number] Nj Gilliam MD [facility] ([facility]) [address] [place] [address] [id number] 5 04/18/2024 12:35:41 04/21/2024 09:08:28 Chronic pain 74127529 G89.29 Will continue gabapentin daily at bedtime. Continue aspirin every day. We will add hydrocodon e daily as needed. Anxiety 90983033 F41.9 Will provide clonazepam to use on dialysis days. Diarrhea 27107658 R19.7 Discussed using loperamide as needed to help with diarrhea. Impaired mobility 815297 05 Z74.09 The patient has a significan t issues with mobility and requires a manual wheelchair . He needs a new order for a new wheelchair given the condition of his current 1. [id number] Nj Gilliam MD [facility] ([facility]) [address] [place] [address] [id number] 5 04/29/2024 14:33:12 04/29/2024 15:41:32 Low back pain 487879654 M54.50 Continue with pain medication s. The patient would likely benefit from a wedge pillow. Will send order to home and see if insurance will help cover a wedge pillow for the patient. Screening for malignant neoplasm of colon 485902234 Z12.11 Will send order for general surgery to the hospital for screening colonoscop y. Screening for malignant neoplasm of prostate 906910193 Z12.5 Will check a PSA today and await colonoscop y for prostate exam. Hyperlipid emia screening 768661439 Z13.220 Physical deconditioning 8797658598 9102 R68.89 Patient does have significan t physical disability and has not been able to ambulate with a walker and uses a wheelchair for mobility. [id number] Nj Gilliam MD [facility] ([facility]) [address] [place] [address] [id number] 5 07/01/2024 16:28:48 07/01/2024 17:46:13 Screening for malignant neoplasm of colon 809489260 Z12.11 Discussed concerns about the prep and the patient's likely to refuse and the caregivers agree that this may not be the best option for the patient. Discussed Cologuard and they feel that the patient would likely be more compliant with it. Chronic pain 42901407 G8 9.29 Discussed pain medication s and there is not a good option for a patch for the patient. Will continue with current pain management at this time. [id number] Nj Gilliam MD [facility] ([facility]) [address] [place] [address] [id number] 5 07/31/2024 15:55:48 08/01/2024 11:58:51 Dysuria 68863161 R30.0 Patient was unable to give a urine sample today. Concerned that the blood is coming from the urine based on her provided by caregiver that showed blood in the anterior portion of the toilet. We will send home collection kit with the patient to collect a UA and bring it back for evaluation . Follow-up pending those results. [id number] Nj Gilliam MD [facility] ([facility]) [address] [place] [address] [id number] 5 08/05/2024 16:42:27 08/07/2024 10:38:38 Active or passive immunization 871133606 Z23 Chronic back pain 319781 002 G89.29 Will add lidocaine patches on top of his other interventi ons to see if this will help with his pain during dialysis. Schizophrenia 39123386 F 20.9 Continue follow-ups with psychiatry . Will obtain lab work as recommende d by psychiatry . Dry skin dermatitis 2600 25664 L85.3 Eucerin cream changed to as needed. Bilateral shoulder joint pain 6171131865 3212325 M25.511 M25.512 Patient is having significan t difficulty operating a manual wheelchair . The patient definitely would benefit from a power wheelchair given this disability . Weakness o f bilateral lower limb 4235334137 90257 M62.81 Patient continues to utilize a wheelchair for mobilizati on and to address ADLs and to be able to go to the bathroom and other parts of his house. Will attempt to obtain powered wheelchair for him as this would significan tly help the patient. Patient is capable of operating a power wheelchair without difficulty . [id number] Nj Gilliam MD [facility] ([facility]) [address] [place] [address] [id number] 5 09/09/2024 10:16:16 09/09/2024 10:45:10 Syncope 555741628 R55 Likely related to blood pressure. Continue with blood pressure checks at shift change. Encouraged the patient to increase fluid intake. At increas ed risk for falls 791710841 Z91.81 It would not be unreasonab le to have an alarm for his wheelchair that they can utilize. The patient does not necessaril y try to get up out of the wheelchair but he has placed him in situations where he has fallen out. This may help minimize the risk of fall. Will send order to home. Recurrent falls 37061661 2 R29.6 [id number] RAKESH KUMAR [facility] ([facility]) [address] [place] [address] [id number] 5 09/16/2024 11:19:48 09/16/2024 12:26:21 Viral upper respiratory tract infection 737968946 J06.9 rxn for cough drops and dayquil provided. Med list updated.Re turn if pt develops fever, sob, or symptoms worsen. [id number] RAKESH KUMAR [facility] ([facility]) [address] [place] [address] [id number] 5 10/07/2024 13:39:43 10/08/2024 11:43:03 Dysuria 63999294 R30.0 Acute urin wilfredo tract infection 469588614 N39.0 UA results reviewed and discussed with pt. We will start antibiotic s. Pt will increase oral fluids. Return to office with no improvemen t or any problems. Go to ER with severe worsening or severe problems.W e will obtain urine culture [id number] Nj Gilliam MD [facility] ([facility]) [address] [place] [address] [id number] 5 10/31/2024 11:05:45 10/31/2024 12:08:04 Chapping of lips 103697804 K13.0 Altered mental status 41 7519896 R41.82 Symptoms resolved with no further issues at this time. No concerns on today's examinatio n. Continue current interventi ons. [id number] Nj Gilliam MD [facility] [facility]) [address] [place] [address] [phone] 11/11/2024 12:02:22 11/11/2024 13:09:01 Essential hypertension [id number] I10 We will increase his hydralazin e to 50 mg 4 times daily. Chronic ki dney disease stage 5 [id number] N18.5 Continue nephrology follow-up and dialysis as planned. Caregivers have plan to evaluate catheter daily. Recurrent falls 24191405 2 R29.6 The patient continues to have recurrent falls and there is significan t concerns that his needs for his ADLs have exceeded the capability of his current living situation. The patient likely needs a higher level of care such as fpc. Currently the patient is his own guardian and he has not wanted to return to fpc. However, there is significan t concerns about his capacity to make appropriat e healthcare decisions. It is of my opinion that the patient is not capable of making appropriat e decisions involving his health care. [id number] Nj Gilliam MD [facility] ([facility]) [address] [place] [address] [phone] 12/24/2024 11:58:51 12/24/2024 13:11:11 Dry skin dermatitis [id number] L85.3 Continue motion to right shoulder as needed. Prescripti on provided. Essential hypertension 80009059 I10 We will increase his hydralazin e to 50 mg 4 times daily. Edentulous [id number] K08 .109 Oral exam performed today. No oral lesions noted. The patient is a dentulous. Type 2 mindy betes mellitus [id number] E11.9 Continue with current diabetes management . Patient is seeing Dr. Cordova. Chronic ki dney disease stage 5 [id number] N18.5 Continue nephrology follow-up and dialysis as planned. Caregivers have plan to evaluate catheter daily. Spinal kamron nosis of lumbar region 86294249 M48.061 This is likely contributi ng to the patient's inability to ambulate well and to change positions. The patient needs a hospital bed to help minimize pressure injuries as the 1 he currently has. Pressure i njury of sacral region of back stage II [id number] 5107 L89.152 Hospital bed would be recommende d. Continue with current wound care. We will send order to home health to help with management of this wound. Weakness o f bilateral lower limb [id number] 34146 M62.81 Patient continues to utilize a wheelchair for mobilizati on and to address ADLs and to be able to go to the bathroom and other parts of his house. [id number] Nj Gilliam MD [facility] ([facility]) [address] [place] [address] [phone] 01/12/2025 15:01:14 01/13/2025 11:41:40 Long-term drug therapy [id number] Z79.115 [id number] Nj Gilliam MD [facility] ([facility]) [address] [place] [address] [phone] 02/13/2025 11:48:00 02/13/2025 13:50:36 Chronic pain 21409048 G89.29 We will DC his hydrocodon e and continue his gabapentin Chronic ki dney disease stage 5 [id number] N18.5 Continue nephrology follow-up and dialysis as planned.. Essential hypertension 98476810 I10 Will hold blood pressure medication on the days of his dialysis to help prevent lows. Continue blood pressure medicine on the days that he is not on dialysis. Type 2 mindy betes mellitus 43390049 E11.9 Continue with current diabetes management . Patient is seeing Dr. Cordova. However, the patient is out of testing supplies so we will send orders for him. Weakness o f bilateral lower limb [id number] 69151 M62.81 Patient utilizes a wheelchair for mobilizati on. We will provide a gait belt to help staff be able to mobilize the patient safer. Recurrent falls 02167428 2 R29.6 Patient has had a history of recurrent falls and would recommend that we make effort to help minimize this. Utilizing a seat belt for his wheelchair and alarms would be helpful in this regard. Will send orders for DME. [id number] Nj Gilliam MD [facility] ([facility]) [address] [place] [address] [phone] 03/10/2025 15:21:53 03/10/2025 16:17:23 Anxiety 32074663 F41.9 Continue clonazepam prior to dialysis as this has been helping. Allergic rhinitis 750456 04 J30.9 [id number] Will start cetirizine to help with allergy symptoms. Chronic ki dney disease stage 5 [id number] N18.5 Continue nephrology follow-up and dialysis as planned.. Essential hypertension 82338075 I10 Current blood pressure management seems to be working well for him. Type 1 mindy betes mellitus 57989489 E10.8 Continue current sliding scale and follow-up with Dr. Cordova. Blaketi on sent to the pharmacy with sliding scale attached and the maximum daily insulin usage. Health Concerns Section Related Observation LastModified by Organization Detai ls LastModified Time None Recorded Concern Status LastModified by Organization Details LastModified Time None Recorded Advance Directives Directive None Recorded Payers Insurance Date Sequence Insurance Name Policy Number Policy Bernabe Covered Member ID Bernabe Member ID Guarantor Name 03/07/2025 [place] [facility] Tyrese Hany [id number] Tyrese Hany 03/07/2025 1 [place] Tyrese Hany [id number] Tyrese Hany Notes Date Note Type Note Provider Name and Address Organization Details Recorded Time 11/11/2024 text/html DiarrheaReported by PatientHPIFor quality, patient reportswateryandloose. For associated symptoms, patient reportsabdominal painbut reportsno fever,no vomiting, andno blood in stool. For duration, patient reportsacute (<14 days). For onset/timing, patient reportsfrequentand>6 times per day.ROS as noted in the HPI Pt is here for check up. Pt is having all over pain, diarrhea, no fever, very fatigue. Pt had a fall on 11/08/24. Pt was found on his knees and head on the ground. Pt refused to go to the ER and walk in clinic. EMS checked him out at the house and cleared him. The patient has been having elevated blood pressures, otherwise he is doing well since his ER visit. Nj Gilliam MD [address] [place] [address], [phone], [facility] 11/16/2024 08:47:07 12/24/2024 text/html Patient is Type 2 diabetic. Patient was hospitalized on 12/07/24 for pneumonia in both lungs. He was discharged on 12/12/24. His after school program director, Lelia, and two of his caregivers accompany him today. They would like to discuss some concerns listed after his release from the hospital. The patient is getting ready to be transferred to a halfway that is able to handle his more complex medical problems. The patient will need a hospital bed. The patient is unable to transfer himself and currently has a sacral pressure wound that was beginning to develop prior to hospitalization. Patient cannot adequately change his position well and does not utilize wedge pillows appropriately. Patient's blood pressure keeps dropping during dialysis with the 100 mg of hydralazine. The patient needs a oral exam. The patient is required have a dental exam but he does not have teeth. Nj Gilliam MD [address] [place] [address], [phone], [facility] 12/27/2024 13:03:19 02/13/2025 text/html This is a 54-year-old gentleman comes in today for hospital follow-up. The patient has been having episodes of low blood pressure when doing dialysis. Patient has had his hydralazine DC'd but continues to have some issues with this. Patient's blood pressure is elevated if he does not take his medication when he is not having dialysis. patient's current caregivers expressed multiple concerns today. They are needing a letter discussing his past that he to make decisions to help with court appointed guardian. Patient also has multiple needs for DME including a seat belt for the wheelchair because of his inability to not attempt to stand. Patient is also needing a chair and bed alarm to help minimize falls and a gait belt to help with transfers and mobility for staff safety. Patient is not using his cane, walker, grab bars, and commode so we will DC their use. Will also DC his hydrocodone as it is not been helpful and actually causes some behavior concerns. Nj Gilliam MD [address] [place] [address], [phone], [facility] 02/17/2025 16:54:11 03/10/2025 text/html Today will be his last visit here. He will be switching to Dr. Harding part time receptionist at [facility].Pt states his lungs hurt. Patient needs refills on several medications. Has been having persistent issues with allergies. Reynaga, everything else has been stable. She has been tolerating dialysis better and is not having low blood pressure readings. The patient has not been in the ER since last visit. Nj Gilliam MD [address] [place] [address], [phone], [facility] 03/12/2025 09:44:00
--- OUTSIDE RECORDS SUMMARY | 2025-07-19 18:31 | XMS_ITS | Clinical Summary ---
Author Organization [facility] Address [address] [place] [address] Phone Care Team Providers Care Drama Director Name Role Phone Unavailable Primary Care Provider [...] directed 03/21/20 24 Active Narcan 4 mg/actuation [place], Non-Aerosol CALL 911, USE 1 SPRAY IN [...] tablet Take 1 Tablet by mouth daily. 03/21/20 24 Active Eucerin Cream apply topically EVERY [...] Active Active Problems No known active problems Social History Tobacco Use Types Packs/Day Years [...] 09/04/2013, 10/01/2012 Medical Devices Implanted Type Area Airline Reservationist Device Identifier Shelf Expiration Date Model / Serial / Lot Clip Ligating Horizon Sm Ti 012807 - Csc - [id number] Implanted:Qty: 6 on 04/24/2024 by Tripp Cervantes MD at [facility] Clip Left: Arm [employer] 10/21/2028 [id number] / / [id number] Clip Ligating Horizon Med Ti [id number] - Csc - [id number] Implanted:Qty: 2 on 04/24/2024 by Tripp Cervantes MD at [facility] Clip Left: Arm [employer]LE[employer]- [employer] S[employer] 10/15/2028 [id number] / / [id number] Insurance [place] Advance Directives For more information, please contact: [phone] * Full Code (Latest Code Status on File) Date Activated Date Inactivated Comments 04/24/2024 9:15 AM 04/24/2024 5:21 PM
[2025-07-19 18:43] VITALS: BP 136/65; PULSE 54; RESP 14; O2SAT 100
[2025-07-19 19:01] LABS: Alanine Aminotransferase 16 U/L (0-41); Albumin Level 3.2 g/dL (3.5-5.2); Alkaline Phosphatase 108 U/L (40-130); Ammonia 28 umol/L (16-60); Anion Gap 17.7 (5-19); Aspartate Amino Transferase 25 U/L (0-40); Blood Urea Nitrogen 67 mg/dL (6-20); Calcium 9.2 mg/dL (8.5-10.5); Carbon Dioxide 25 mmol/L (22-29); Chloride 100 mmol/L (98-107); Creatinine Clr Calc Pharmacy 21.5319; Globulin 3.4 g/dL (1.3-4.6); Glucose 164 mg/dL (65-115); Magnesium 1.9 mg/dL (1.7-2.3); Osmolality Calculated 309 mOsm/kg (285-295); Potassium 4.7 mmol/L (3.5-5.1); Sodium 138 mmol/L (136-145); Thyroid Stimulating Hormone 1.05 uIU/mL (0.27-4.20); Total Protein 6.6 g/dL (6.6-8.7)
--- NOTE | 2025-07-19 19:15 | ECG_ITS ---
[facility] Test Date: 2025-07-19 Pat Name: Tyrese Leach Department: Room: Gender: Male Flitch Hanger: : 1970 Requested By: Oneida De Anda Order Number: [id number] Debora MD: Yovanny Pinon M.D. Measurements Intervals [place] Rate: 68 P: 72 GA: 164 QRS: -44 QRSD: 152 T: -25 QT: 454 QTc: 483 Interpretive Statements SINUS RHYTHM LEFT AXIS DEVIATION [QRS AXIS < -30] RIGHT BUNDLE BRANCH BLOCK [120+ ms QRS DURATION, UPRIGHT V1, 40+ ms S IN I/aVL/V4/V5/V6] MODERATE VOLTAGE CRITERIA FOR LVH, CONSIDER NORMAL VARIANT [MEETS CRITERIA IN ONE OF: R(aVL), S(V1), R(V5), R(V5/V6)+S(V1)] Compared to ECG 06/15/2025 20:40:25 Left-axis deviation now present Indeterminate axis no longer present T-wave abnormality no longer present Possible ischemia no longer present Electronically Signed On 07-21-2025 19:27:02 CDT by Yovanny Pinon M.D. [email or web address]
[2025-07-19 19:25] LABS: NT Pro B Type Natriuretic Pept 56560 pg/mL (0-125)
[2025-07-19 19:48] VITALS: BP 101/64; PULSE 75; O2SAT 98
[2025-07-19 21:00] VITALS: BP 137/74; PULSE 79; O2SAT 98
[2025-07-19 22:13] VITALS: BP 131/62; PULSE 75; O2SAT 99
--- NOTE | 2025-07-19 22:15 | PC.NURSE ---
Pt is very lethagic at discharge. Pt will respond to touch with movement. Caregiver states his normal varies, sometime he answers in yes and no answers.
== END 2025-07-19 20:10 | disposition home or self-care (01) ==
PROVIDERS: Emergency Provider Emergency Medicine; PCP Family Medicine
DX: R41.0 Disorientation, unspecified (principal); Z79.4 Long term (current) use of insulin; Z79.82 Long term (current) use of aspirin; F17.210 Nicotine dependence, cigarettes, uncomplicated; E78.2 Mixed hyperlipidemia; I12.0 Hypertensive chronic kidney disease with stage 5 chronic kidney disease or end stage renal disease; E10.22 Type 1 diabetes mellitus with diabetic chronic kidney disease; N18.6 End stage renal disease; Z99.2 Dependence on renal dialysis
CPT/HCPCS: 36416; 36600; 70450; 71045; 80053; 82140; 82805; 82962; 83735; 83880; 84443; 85025; 93005; 96374; 99285; J2312

== ENCOUNTER 2025-07-20 08:55 | Inpatient (IN) | payer MEDICAID, SELFPAY ==
[2025-07-20] VITALS (114 sets, daily range): BP systolic 75–212; BP diastolic 42–102; PULSE 62–98; RESP 13–22; TEMP 35.6–36.4; O2SAT 98–100; BMI 19.8
--- NOTE | 2025-07-20 09:02 | XRR_ITS ---
PROCEDURE INFORMATION: Exam: XR Chest Exam date and time: 07/20/2025 9:29 AM Age: 55 years old Clinical indication: AMS PT appears to have angioedema in lips and mouth area. ; Additional info: Weakness TECHNIQUE: Imaging protocol: Radiologic exam of the chest. Views: 1 view. COMPARISON: CR (CHEST, ) 07/19/2025 6:15 PM FINDINGS: Tubes, catheters and devices: Unchanged right IJ dialysis catheter projecting in satisfactory position. New ETT terminating 1.5 cm above the kalani. Lungs: Slightly decreased atelectasis and/or pneumonitis in the left lung base. Otherwise, unremarkable. Pleural spaces: Unremarkable. No pleural effusion. No pneumothorax. Heart/Mediastinum: Unremarkable. No cardiomegaly. Bones/joints: Nothing acute. No change. XR/XR chest 1V portable [id number] IMPRESSION: 1. Slightly decreased atelectasis and/or pneumonitis in the left lung base. 2. New ETT terminating 1.5 cm above the kalani.
--- NOTE | 2025-07-20 09:08 | W.ED.GENADLT ---
HPI - General Adult General: Chief complaint: Altered Mental Status Stated complaint: ams - facial angioedema Time Seen by Provider: 07/20/25 09:00 History of Present Illness: This is a 55-year-old -[place] male with a history of hypertension, end-stage renal disease on dialysis, intellectual disability, type 1 diabetes, wheelchair dependence, hyperlipidemia, dysphagia and anxiety who presents to the emergency room with worsening confusion and tongue and lip swelling with respiratory distress. On presentation he is having some sonorous type breathing. He is very somnolent. Mouth is extremely swollen and tongue as well. He had been in the emergency room earlier in the night and was thought that his primary concern at this point would be to get dialysis. I spoke with nursing and he said his mouth was not nearly the swollen although he may have had some minor edema. Related Data Home Medications ?Medication ?Instructions ?Recorded ?Confirmed amlodipine 10 mg tablet 10 mg PO DAILY@03/30/23 06/29/25 multivitamin with folic acid 400 1 tab PO DAILY@03/30/23 06/29/25 mcg tablet (Daily-Sean (with folic acid)) acetaminophen 325 mg tablet 650 mg PO QID PRN Pain 09/04/24 06/29/25 (Tylenol) trazodone 100 mg tablet 250 mg PO QPM 04/28/25 06/29/25 dextrose 40 % oral gel (Glucose 15 g PO Q15M PRN low bs 05/28/25 06/29/25 Gel) lidocaine 5 % topical patch 1 patch topical DAILY 05/28/25 06/29/25 lurasidone 120 mg tablet 60 mg PO BID 05/28/25 06/29/25 polyethylene glycol 3350 17 gram 17 g PO DAILY 05/28/25 06/29/25 oral powder packet (Miralax) Previous Rx's ?Medication ?Instructions ?Recorded ondansetron 4 mg disintegrating 4 mg PO Q6H PRN nausea and 02/11/25 tablet vomiting #10 tabs mupirocin 2 % topical ointment 1 applic topical BID #15 grams 03/26/25 Wheelchair pad #1 ea 04/28/25 gabapentin 300 mg capsule 300 mg PO TID #90 caps 05/23/25 loperamide 2 mg tablet See Rx Instructions .Route 06/09/25 (Anti-Diarrheal (loperamide)) .COMPLEX #30 ea aripiprazole 15 mg tablet See Rx Instructions .Route 06/16/25 .COMPLEX #90 tabs carvedilol 12.5 mg tablet See Rx Instructions .Route 06/16/25 .COMPLEX #60 tabs isosorbide mononitrate 60 mg See Rx Instructions .Route 06/17/25 tablet,extended release 24 hr .COMPLEX #30 tabs insulin lispro 100 unit/mL See Rx Instructions SUBCUT TID #15 06/24/25 subcutaneous pen (Humalog KwikPen mL (U-100) Insulin) aspirin 325 mg tablet,delayed See Rx Instructions .Route 06/26/25 release .COMPLEX #30 ea benztropine 1 mg tablet See Rx Instructions .Route 06/26/25 .COMPLEX #180 tabs famotidine 20 mg tablet See Rx Instructions .Route 06/26/25 .COMPLEX #60 tabs lisinopril 40 mg tablet See Rx Instructions .Route 06/26/25 .COMPLEX #30 tabs blood glucose control, normal #1 ea 07/01/25 (True Metrix Level 2 solution) blood sugar diagnostic (Blood #200 ea 07/01/25 Glucose Test strips) cetirizine 10 mg tablet See Rx Instructions .Route 07/01/25 .COMPLEX #90 tabs clonazepam 0.5 mg tablet 0.5 mg PO .COMPLEX #12 tabs 07/01/25 lancets #200 ea 07/01/25 pen needle, diabetic 31 gauge x #100 ea 07/01/25/ (Pen Needle) starch (thickening) (Thick-It oral See Rx Instructions .Route 07/01/25 powder) .COMPLEX #1,020 grams WHEELCHAIR WITH SEAT BELT AND #1 ea 07/15/25 HARNESS baclofen 10 mg tablet 10 mg PO TID PRN muscle spasm 30 07/15/25 days #90 tabs hydrocodone 7.5 mg-acetaminophen 1 tab PO Q6H PRN pain 30 days #120 07/15/25 325 mg tablet tabs naloxone 4 mg/actuation nasal 1 spray intranasal Q3M #2 ea 07/15/25 spray (Narcan) Allergies Allergy/AdvReac Type Severity Reaction Status Date / Time No Known Allergies Allergy Verified 06/25/25 13:13 Review of Systems General: Reports: ROS unobtainable due to medical condition and ROS unobtainable due to mental status [facility] ED PFSH: Medical History (Updated 07/20/25 @ 12:09 by Estephanie Molina MD) Malignant hypertension ESRD (end stage renal disease) Hyperlipemia, mixed Acute renal failure Acute kidney injury superimposed on CKD Acute hyponatremia Hyponatremia Anemia Hypervolemia Tobacco abuse Diabetes Social History Smoking and tobacco/nicotine status: current every day tobacco/nicotine user cigarettes Alcohol intake: former Substance/Drug Use: former Physical Exam Narrative: EXAM NARRATIVE: General: Patient is very somnolent and appears in some distress. Skin: Warm, dry. Head: Normocephalic, atraumatic. Neck: Supple, trachea midline. Eye: Extraocular movements are intact. Ears, nose, mouth and throat: mucosa moist. Patient has severe swelling of the lips and tongue. I can barely pass a finger into his oral cavity. He is having some sonorous type breathing. Cardiovascular: Regular, Normal peripheral perfusion. Respiratory: Lungs are clear to auscultation, respirations are non-labored, breath sounds are equal, Symmetrical chest wall expansion. Gastrointestinal: Soft, Nontender, Non distended Musculoskeletal: Normal ROM, no deformity. Neurological: Somnolent but no obvious focal neurological deficit observed. Psychiatric: Unable to assess Course Vital Signs: Vital signs: Vital Signs Pulse Rate 82 07/20/25 12:00 Respiratory Rate 14 07/20/25 11:54 Blood Pressure 143/80 07/20/25 12:00 Pulse Oximetry 100 07/20/25 11:54 Oxygen Delivery Me thod Mechanical Ventil ation 07/20/25 10:00 Fraction of Inspir ed Oxygen 35 07/20/25 11:02 [facility] - General Adult Medical Decision Making Medical decision making: Differential diagnosis including but not limited to and based on the above HPI, review of systems and physical exam: In this patient with altered mental status: Stroke. Hypoglycemia. Metabolic encephalopathy. Infections such as pneumonia, urinary tract infection, Covid-19, Influenza. Electrolyte abnormalities such as hypernatremia. Renal failure / uremia. Hepatic encephalopathy. Hypoxemia. Hypercapnic respiratory failure. Psychosis. Drug or alcohol intoxication. Medication overdose. Orders placed to evaluate differential diagnosis based on the above differential, HPI and physical exam Also of more acute importance today is he appears to have acute angioedema with respiratory failure. This is likely secondary to his lisinopril. Consultation: Dr. Queen with anesthesia who evaluated the patient with me in the emergency room and ultimately intubated with some difficulty. On the screen there was diffuse edema of the airway and vocal cords. Even with a bougie passing through the cords was quite difficult. Chest x-ray: Slightly decreasing atelectasis/possible pneumonitis in the left lung. ETT terminates 1.5 cm above the kalani. This was reviewed and interpreted by myself the emergency room physician. I also reviewed the radiology report. Lab Review: Laboratory results were reviewed and interpreted by myself the emergency room physician. No leukocytosis. No anemia. BUN and creatinine are 71 and 3.6 with a potassium of 4.7 which would be expected in this dialysis patient. Urinalysis appears quite infected with 3+ leukocyte esterase and too numerous to count whites and 4+ bacteria. I reviewed the patient's medical record. This is a 55-year-old -[place] male with a history of hypertension, end-stage renal disease on dialysis, intellectual disability, type 1 diabetes, wheelchair dependence, hyperlipidemia, dysphagia and anxiety. He is on lisinopril which is likely the culprit of this angioedema today. Reexamination: Patient has good oxygen saturations on the ventilator and is well sedated. Swelling in his lips and mouth seems to be improving somewhat. Consultation: I spoke with Dr. Valdes who is on-call for the hospital service who agrees to admission Consultation: I spoke with the hand expansion envelope maker Dr. Arroyo on-call who will evaluate the patient Assessment and plan: Angioedema Respiratory failure Encephalopathy Urinary tract infection Sepsis End-stage renal disease on dialysis ?Emergent intubation and mechanical ventilation. Secondary to angioedema ?FFP, Solu-Medrol, Pepcid and Benadryl - 500 cc normal saline bolus initially. Patient is a dialysis patient and is likely slightly fluid overloaded as he is due for dialysis today. -Broad-spectrum antibiotics were administered. Zyvox and meropenem -Sepsis quality measures. -Lactic acid with a reflex was ordered. -Blood cultures were ordered. ?I reevaluated the patient's volume status after sepsis fluids were given. -I discussed the patient with the hospitalist on-call who is admitting the patient. - Discussed findings and plan with caregivers. Answered any questions. - All laboratory values were reviewed and interpreted personally by myself, the ER physician - All imaging was reviewed and interpreted personally by myself, the ER physician. - Evaluation and treatment of this problem were appropriate in the emergency setting Critical Care: -I spent a total of 50 minutes of critical care time managing the patient, independent of any other practitioner. -The time involved in the performance of separately reportable procedures was not counted towards critical care time. Lab Data 07/20/25 09:08 07/20/25 09:08 Radiology Impressions Chest X-Ray 07/20/25 09:02 IMPRESSION: 1. Slightly decreased atelectasis and/or pneumonitis in the left lung base. 2. New ETT terminating 1.5 cm above the kalani. Laboratory Results WBC 7.56 10^3/uL (3.29-11.43) 07/20/25 09:08 RBC 3.82 10^6/uL (3.85-5.65) L 07/20/25 09:08 Hgb 11.30 g/dL (11.27-16.99) 07/20/25 09:08 Hct 35.0 % (37-53) L 07/20/25 09:08 MCV 91.6 fl (82-101) 07/20/25 09:08 MCH 29.6 pg (27-33) 07/20/25 09:08 MCHC 32.3 g/dL (30-55) 07/20/25 09:08 RDW 15.1 % (12.1-15.1) 07/20/25 09:08 Plt Count 308 10^3/cmm (157-399) 07/20/25 09:08 MPV 10.2 fL (7.4-10.4) 07/20/25 09:08 Neut % (Auto) 78.5 % 07/20/25 09:08 Lymph % (Auto) 13.6 % 07/20/25 09:08 Steele % (Auto) 6.1 % 07/20/25 09:08 Eos % (Auto) 0.8 % 07/20/25 09:08 Baso % (Auto) 0.5 % 07/20/25 09:08 Neut # (Auto) 5.93 10^3/uL (1.8-7.7) 07/20/25 09:08 Lymph # (Auto) 1.0 10^3/uL (0.8-4.8) 07/20/25 09:08 Steele # (Auto) 0.5 10^3/uL (0.2-0.9) 07/20/25 09:08 Eos # (Auto) 0.1 10^3/uL (0.0-0.8) 07/20/25 09:08 Baso # (Auto) 0.0 10^3/uL (0.0-0.1) 07/20/25 09:08 Nucleated RBC % (auto) 0 % 07/20/25 09:08 Nucleated RBCs # 0.0 /100WBC 07/20/25 09:08 Specimen Type Arterial 07/20/25 09:31 Sample Site Radial, right 07/20/25 09:31 ABG pH 7.47 (7.35-7.45) H 07/20/25 09:31 ABG pCO2 34.5 mmHg (35-45) L 07/20/25 09:31 ABG pO2 480.0 mmHg (80.0-100.0) H 07/20/25 09:31 ABG PO2/FiO2 Ratio 480 07/20/25 09:31 ABG HCO3 25.3 mmol/L (22-26) 07/20/25 09:31 ABG O2 Saturation > 99.1 07/20/25 09:31 ABG Base Excess 1.8 mmol/L (-2.0-2.0) 07/20/25 09:31 Jeff Test Pos 07/20/25 09:31 A-a O2 Gradient 23.0 mmHg (5-10) H 07/20/25 09:31 Hematocrit 33.1 % (42-52) L 07/20/25 09:31 Hgb O2 Saturation 98.6 % (95-100) 07/20/25 09:31 Carboxyhemoglobin 0.6 %THgb (0.4-20.1) 07/20/25 09:31 Methemoglobin 1.1 % (0.4-1.5) 07/20/25 09:31 Total Hemoglobin 10.8 g/dL (14-18) L 07/20/25 09:31 Sodium 140.0 mmol/L (131-143) 07/20/25 09:31 Potassium 4.6 mmol/L (3.5-5.0) 07/20/25 09:31 Glucose 147.0 mg/dL (70-115) H 07/20/25 09:31 Ionized Calcium 1.2 mmol/L (1.1-1.4) 07/20/25 09:31 O2 Delivery Device Vent 07/20/25 09:31 FiO2 100.0 % 07/20/25 09:31 Tidal Volume 0.48 07/20/25 09:31 PEEP 5.0 cmH20 07/20/25 09:31 Program Admin ID [place] 07/20/25 09:31 Sodium 136 mmol/L (136-145) 07/20/25 09:08 Potassium 4.7 mmol/L (3.5-5.1) 07/20/25 09:08 Chloride 97 mmol/L (98-107) L 07/20/25 09:08 Carbon Dioxide 25 mmol/L (22-29) 07/20/25 09:08 Anion Gap 18.7 (5-19) 07/20/25 09:08 BUN 71 mg/dL (6-20) H 07/20/25 09:08 Creatinine 3.6 mg/dL (0.7-1.2) H 07/20/25 09:08 GFR Calculation 21.3 mL/min (90-130) L 07/20/25 09:08 Glucose 149 mg/dL (65-115) H 07/20/25 09:08 Calculated Osmolality 306 mOsm/kg (285-295) H 07/20/25 09:08 Lactic Acid 1.0 mmol/L (0.5-2.2) 07/20/25 09:08 Calcium 9.7 mg/dL (8.5-10.5) 07/20/25 09:08 Total Bilirubin 0.6 mg/dL (0.15-1.2) 07/20/25 09:08 AST 34 U/L (0-40) 07/20/25 09:08 ALT 20 U/L (0-41) 07/20/25 09:08 Alkaline Phosphatase 116 U/L (40-130) 07/20/25 09:08 C-Reactive Protein 39.2 mg/L (0.0-4.9) H 07/20/25 09:08 Total Protein 7.4 g/dL (6.6-8.7) 07/20/25 09:08 Albumin 3.7 g/dL (3.5-5.2) 07/20/25 09:08 Globulin 3.7 g/dL (1.3-4.6) 07/20/25 09:08 Urine Color Yellow (Yellow) 07/20/25 10:01 Urine Appearance Turbid (CLEAR) A 07/20/25 10:01 Urine pH 5.5 (5-7) 07/20/25 10:01 Ur Specific [place] 1.017 (1.005-1.030) 07/20/25 10:01 Urine Protein 2+ (Negative) A 07/20/25 10:01 Urine Glucose (UA) Negative (Normal) 07/20/25 10:01 Urine Ketones Negative (Negative) 07/20/25 10:01 Urine Blood 2+ (Negative) A 07/20/25 10:01 Urine Nitrate Negative (Negative) 07/20/25 10:01 Urine Bilirubin Negative (Negative) 07/20/25 10:01 Urine Urobilinogen 1.0 mg/dL (Negative) 07/20/25 10:01 Ur Leukocyte Esterase 3+ (Negative) A 07/20/25 10:01 Urine RBC 10-15 /hpf (0-2) H 07/20/25 10:01 Urine WBC Too numerous to cnt /hpf (0-5) H 07/20/25 10:01 Ur Squamous Epith Cells 0-4 /hpf (0-5) H 07/20/25 10:01 Amorphous Sediment Not Reportable 07/20/25 10:01 Urine Bacteria 4+ /hpf (NONE) H 07/20/25 10:01 Urine Mucus 1+ /hpf 07/20/25 10:01 Blood Type AB Positive 07/20/25 10:10 Rho(D) Type Rh positive 07/20/25 10:10 Antibody Screen Negative 07/20/25 10:10 All radiology interpretation(s) finalized by discharge Discharge Plan Discharge Patient Disposition: Admitted As Inpatient Admit Provider: Enrique Valdes Clinical Impression: Angioedema, Respiratory failure, Sepsis, Urinary tract infection, End stage renal disease on dialysis, Acute metabolic encephalopathy Condition: Stable Coding Level of Care Code ED Sugar Coating Hand for Chg Meli
--- OUTSIDE RECORDS SUMMARY | 2025-07-20 09:11 | XMS_ITS | Clinical Summary ---
Author Organization [facility] [email or web address], [facility] Address [address] [place] [address] Phone Care Team Providers Care Custodial Manager Name Role Phone Ahsan Gilliam MD Primary Care Provider [phone] Allergies No known active allergies Medications acetaminophen [...] tablet 1 (one) time each day 08/31/20 Active doxycycline (VIBRAMYCIN) 100 MG capsule 2 (two) times a day 12/11/19 Active escitalopram (LEXAPRO) 10 MG tablet Take 20 mg by mouth in the morning. Active fenofibrate (TRICOR) 145 MG tablet Take 145 mg by mouth in the morning. Active ferrous sulfate 325 (65 Fe) MG tablet Take 325 mg by mouth in the morning. 06/16/20 Active gabapentin (NEURONTIN) 800 MG tablet 2 (two) times a day 04/13/20 21 Active guaiFENesin (ROBITUSSIN) 100 MG/5ML syrup every 4 (four) hours 01/12/20 21 Active haloperidol (HALDOL) 2 MG tablet 2 tab(s) orally at bedtime 03/13/20 13 Active insulin aspart (NovoLOG) 100 UNIT/ML injection 15 units subcutaneously 3 times a day with meals 09/09/20 Active insulin glargine (Lantus SoloStar) 100 UNIT/ML injection INJECT 60 UNITS SUBCUTANEOUSLY AT BEDTIME 09/10/20 20 Active Insulin Pen Needle (TechLite Pen [place]) 31G X 5 MM misc USE TO INJECT 4 TIMES DAILY DIRECTED 08/01/20 Active Lancets (onetouch ultrasoft) lancets USE DIRECTED [...] tablet Take 10 mg by mouth 01/21/20 Active urea (CARMOL) 20 % cream 1 [...] in the morning 30 tablet 11 12/27/19 Active Active Problems Problem Noted Date Diagnosed [...] Encounters Date Type Department Care Team Description 07/15/2025 Orders Only [facility], [facility] [address] [place] [address] Ora Aceves MD 07/08/2025 [facility], [facility] [address] [place] [address] Ora Aceves MD 07/08/2025 [facility], [facility] [address] [place] [address] Kiersten Matamoros NP End stage renal disease; Dependence on renal dialysis 07/01/2025 [facility], [facility] [address] [place] [address] Erika Magdaleno NP End stage renal disease; Dependence on renal dialysis 07/01/2025 [facility], [facility] [address] [place] [address] Ora Aceves MD 06/24/2025 Orders Only [facility], [facility] [address] [place] [address] Ora Aceves MD 06/22/2025 [facility], [facility] [address] [place] [address] Ora Aceves MD End stage renal disease; Dependence on renal dialysis 06/10/2025 Orders Only [facility], [facility] [address] [place] [phone] Ora Aceves MD 06/08/[address] [place] [address], [facility] [address] [place] [address] Erika Magdaleno NP End stage renal disease; Dependence on renal dialysis 06/03/2025 Orders Only [facility], [facility] [address] [place] [address] Ora Aceves MD 06/03/[address] [place] [address], [facility] [address] [place] [address] Kiersten Matamoros NP End stage renal disease; Dependence on renal dialysis 05/27/2025 Orders Only [facility], [facility] [address] [place] [address] Ora Aceves MD 05/25/[address] [place] [address], [facility] [address] [place] [address] Kiersten Matamoros NP End stage renal disease; Dependence on renal dialysis 05/20/2025 Orders Only [facility], [facility] [address] [place] [address] Ora Aceves MD 05/13/[address] [place] [address], [facility] [address] [place] [address] Kiersten Matamoros NP End stage renal disease; Dependence on renal dialysis 05/11/[address] [place] [address], [facility] [address] [place] [address] Ora Aceves MD End stage renal disease; Dependence on renal dialysis 05/08/[address] [place], [place] [address]rology [facility], [facility] [address] [place] [address] Erika Magdaleno NP End stage renal disease; Dependence on renal dialysis 05/06/2025 Orders Only [facility], [facility] [address] [place] [address] Ora Aceves MD 04/29/2025 [facility], [facility] [address] [place] [address] Ora Aceves MD 04/22/2025 [facility], [facility] [address] [place] [address] Ora Aceves MD 04/22/2025 [facility], [facility] [address] [place] [address] Ora Aceves MD End stage [...] Comments Blood Pressure 147/57 08/09/2022 1:53 PM CLAY ARTIST Pulse 88 04/27/2021 12:00 AM CDT Temperature 36.2 C (97.1 F) 12/13/2020 12:00 AM CDT Respiratory Rate - - Oxygen Saturation - - Inhaled Oxygen Concentration - - Weight 81.6 kg (180 lb) 08/09/2022 1:53 PM CLAY ARTIST Height 175.3 cm (5' 9 ) 08/09/2022 1:53 PM CLAY ARTIST Body Mass Index 26.58 08/09/2022 1:53 PM CLAY ARTIST Plan of Treatment Health Maintenance Due Date [...] 07/26/2018, Additional history exists Diabetes: Hemoglobin A1C 09/02/2025 025, 03/04/2025, 12/03/2024, Additional history exists Pneumococcal Vaccine: Peds ( 0 to 5 Years) and At-Risk Patients (6 to 49 Years) Discontinued 03/15/2015 Procedures Procedure Name Priority Date/Time Associated Diagnosis Comments HEMATOLOGY Routine 07/15/2025 HEMATOLOGY Routine 07/08/2025 [facility] RESULTS Routine 07/01/2025 HD KINETICS Routine 07/01/2025 POST CHEMISTRY Routine 07/01/2025 CHEMISTRY Routine 07/01/2025 HEMATOLOGY Routine 07/01/2025 HEMATOLOGY Routine 06/24/2025 HEMATOLOGY Routine 06/10/2025 [facility] RESULTS Routine 06/03/2025 HD KINETICS Routine 06/03/2025 POST CHEMISTRY Routine 06/03/2025 CHEMISTRY Routine 06/03/2025 CHEMISTRY Routine 06/03/2025 TRACE ELEMENTS Routine 06/03/2025 SPECIAL CHEMISTRY Routine 06/03/2025 HEMATOLOGY Routine 06/03/2025 HEMATOLOGY Routine 05/27/2025 HEMATOLOGY Routine 05/20/2025 [facility] RESULTS Routine 05/06/2025 HD KINETICS Routine 05/06/2025 POST CHEMISTRY Routine 05/06/2025 CHEMISTRY Routine 05/06/2025 CHEMISTRY Routine 05/06/2025 HEMATOLOGY Routine 05/06/2025 HEMATOLOGY Routine 04/29/2025 HEMATOLOGY Routine 04/22/2025 from Last 3 Months Results * (ABNORMAL) HEMATOLOGY (07/15/2025) Only the most recent of11 resultswithin the time period is included. Hemoglobin 10.8(L) 14.0 - 18.0 g/dL [facility] Hemoglobin x 3 32.4(L) 42.0 - 54.0 % [facility] 07/15/2025 07/16/2025 10: 43 AM CDT Narrative [facility] - 07/16/2025 Unless otherwise specified, test(s) performed at: [facility], [address] [place] [address] PRECISION HONER: Elbert Salinas M.D. For any questions, please call customer service at FREQUENCY:OTHER Resulting Agency Comment Specimen source: Blood us Ora Aceves MD LAB BLOOD ORDERABLES Final Re sult Performing Organization Address [facility] de Phone Number [email or web address] See order comments or contact performing lab Unknown, [place] * HD KINETICS (07/01/2025) Only the most recent of3 resultswithin the time period is included. % Urea Reduction 80 65 - 80 % [facility] 07/01/2025 07/03/2025 11: 18 AM CDT Narrative Resulting Agency Comment Specimen source: Plasma us Ora Aceves MD LAB BLOOD ORDERABLES Final Re sult Performing Organization Address [facility] de Phone Number [facility] See order comments or contact performing lab Unknown, [place] * POST CHEMISTRY (07/01/2025) Only the most recent of3 resultswithin the time period is included. BUN Post Dialysis 14 6 - 19 mg/dL [facility] 07/01/2025 07/03/2025 11: 18 AM CDT Narrative [facility] - 07/03/2025 Unless otherwise specified, test(s) performed at: [facility], [address] [place], [place] [id number] PRECISION HONER: Elbert Salinas M.D. For any questions, please call customer service at FREQUENCY:MONTHLY Resulting Agency Comment Specimen source: Plasma us Ora Aceves MD LAB BLOOD ORDERABLES Final Re sult Performing Organization Address [facility] de Phone Number [facility] See order comments or contact performing lab Unknown, [place] * (ABNORMAL) [facility] (07/01/2025) Only the most recent of5 resultswithin the time period is included. BUN 69(H) 6 - 19 mg/dL [facility] Creatinine 3.19(H) 0.60 - 1.30 mg/dL [facility] BUN/Creatinine Ratio 21.6(H) 10.0 - 20.0 [facility] Sodium 136 136 - 145 mEq/L [facility] Potassium 4.9 3.5 - 5.1 mEq/L [facility] Chloride 101 96 - 108 mEq/L [facility] Bicarbonate (CO2) 27 22 - 29 mEq/L [facility] Calcium 9.0 8.4 - 10.2 mg/dL [facility] Corrected Calcium 9.6 8.4 - 10.2 mg/dL [facility] Comment: Corrected Calcium is not equivalent to measured Ionized Calcium. Phosphorus 4.1 2.6 - 4.5 mg/dL [facility] Calcium Phosphorus Product 37 0 - 54 [facility] Calcium Phosporus Product, Cor 39 0 - 54 [facility] Total Protein 6.2 6.0 - 8.5 g/dL [facility] Albumin 3.3(L) 3.5 - 5.2 g/dL [facility] Globulin, Total 2.9 2.0 - 4.0 g/dL [facility] A/G Ratio 1.1 1.0 - 2.0 [facility] Glucose 143(H) 70 - 100 mg/dL [facility] Iron 104 45 - 160 mcg/dL [facility] UIBC 146(L) 155 - 355 mcg/dL [facility] TIBC 250 185 - 515 mcg/dL [facility] Iron Saturation (TSat) 42 20 - 55 % [facility] 07/01/2025 07/02/2025 10: 22 AM CDT Narrative [facility] - 07/02/2025 Unless otherwise specified, test(s) performed at: [facility], [address] [place] [address] PRECISION HONER: Elbert Salinas M.D. For any questions, please call customer service at FREQUENCY:MONTHLY Resulting Agency Comment Specimen source: Serum us Ora Aceves MD LAB BLOOD ORDERABLES Final Re sult [email or web address] See order comments or contact performing lab Unknown, [place] * [facility] Lab Results (07/01/2025) Only the most recent of3 resultswithin the time period is included. Pathologist [facility] PCR 78.48 [facility] spKt/V Gotch 1.84 [facility] eKt/V Gotch 1.56 [facility] nPCR_HD 1.26 [facility] WSTDKT/V 2.6 [facility] eKt/V ([place]) 1.58 [facility] eKdrt/V 1.56 [facility] eNPCR 1.18 [facility] spKt/V (Daugirdas II) 1.84 [facility] 07/01/2025 07/01/2025 [facility] Ordering Provider LAB BLOOD ORDERABLES Final Result Performing Organization Address City/[facility]/ZIP Co de Phone Number [facility] Contact Performing lab Unknown, [place] * (ABNORMAL) SPECIAL CHEMISTRY (06/03/2025) [facility] Hemoglobin A1C 6.3(H) 4.8 - 5.9 % [facility] 06/03/2025 06/04/2025 10: 54 AM CDT Narrative [facility] - 06/04/2025 Unless otherwise specified, test(s) performed at: [facility], [address] [place] [address] PRECISION HONER: Elbert Salinas M.D. For any questions, please call customer service at FREQUENCY:MONTHLY Resulting Agency Comment Specimen source: Blood Ora Aceves MD LAB BLOOD BANK TEST ORDERABLE S Final Result [facility] See order comments or contact performing lab Unknown, [place] * TRACE ELEMENTS (06/03/2025) [facility] Aluminum <5 0 - 10 mcg/L [facility] Comment: This test was developed and its performance characteristics determined by [facility]. It has not been cleared or approved by the FDA. The laboratory is regulated under CLIA as qualified to perform high complexity testing. This test is used for clinical purposes. It should not be regarded as investigational or for research. 06/03/2025 06/04/2025 10: 00 AM CDT Matthew YATES - 06/04/2025 Unless otherwise specified, test(s) performed at: [facility], [address] [place] [id number] PRECISION HONER: Elbert Salinas M.D. For any questions, please call customer service at FREQUENCY:MONTHLY Resulting Agency Comment Specimen source: Serum us Ora Aceves MD LAB BLOOD ORDERABLES Final Re sult [employer] See order comments or contact performing lab Unknown, [place] from Last 3 Months Insurance Medicaid [place] ([facility]) [place]) Care Teams Custodial Manager Relationship Specialty Start Date End Date Ahsan Gilliam MD [address] [id number] PCP - General Family Medicine 06/22/23
--- OUTSIDE RECORDS SUMMARY | 2025-07-20 09:11 | XMS_ITS | Encounter Summary ---
Author Organization [facility], [facility] Address [address] [place] [address] Phone Care Team Providers Care Model Engine Mechanic Name Role Phone Ahsan Gilliam MD Primary Care Provider [phone] Encounter Details Date Type Department Care Team (Late st Contact Info) Description 07/15/2025 Orders Only [facility], [facility] [address] [place] [address] Ora Aceves MD [address] [place] [address] Social History Tobacco Use Types [...] Date/Time Associated Diagnosis Comments HEMATOLOGY Routine 07/15/2025 documented in this encounter Results * (ABNORMAL) HEMATOLOGY (07/15/2025) Hemoglobin 10.8(L) 14.0 - 18.0 g/dL [facility] Hemoglobin x 3 32.4(L) 42.0 - 54.0 % [facility] 07/15/2025 07/16/2025 10: 43 AM CDT Narrative [facility] - 07/16/2025 Unless otherwise specified, test(s) performed at: [facility], [address] [place] [id number] [employer] PRO[employer] DIRECTOR: Elbert Salinas M.D. For any questions, please call customer service at FREQUENCY:OTHER Resulting Agency Comment Specimen source: Blood us Ora Aceves MD LAB BLOOD ORDERABLES Final Re sult [facility] See order comments or contact performing lab Unknown, [place] documented in this encounter Visit Diagnoses Not on filedocumented in this encounter Care Teams Model Engine Mechanic Relationship Specialty Start Date End Date Ahsan Gilliam MD [address] [phone] PCP - General Family Medicine 06/22/23 documented as of this encounter
--- OUTSIDE RECORDS SUMMARY | 2025-07-20 09:12 | XMS_ITS | Clinical Summary ---
Author Organization [facility] Address [address] [place] [address] Phone Care Team Providers Care Grounds Keeper Name Role Phone Unavailable Primary Care Provider [...] directed 03/21/20 24 Active Narcan 4 mg/actuation [place], Non-Aerosol CALL 911, USE 1 SPRAY IN [...] 09/04/2013, 10/01/2012 Medical Devices Implanted Type Area Recep Device Identifier Shelf Expiration Date Model / Serial / Lot Clip Ligating Horizon Sm Ti [id number] - Csc - [id number] Implanted:Qty: 6 on 04/24/2024 by Tripp Cervantes MD at [facility] Clip Left: Arm [employer] 10/21/2028 [id number] / / [id number] Clip Ligating Horizon Med Ti [id number] - Csc - [id number] Implanted:Qty: 2 on 04/24/2024 by Tripp Cervantes MD at [facility] Clip Left: Arm [employer]LE[employer]- [employer]URE SYS 10/15/2028 [id number] / / [id number] Insurance MEDICAID [place] Advance Directives For more information, please contact: [phone] * Full Code (Latest Code Status on File) Date Activated Date Inactivated Comments 04/24/2024 9:15 AM 04/24/2024 5:21 PM
--- OUTSIDE RECORDS SUMMARY | 2025-07-20 09:12 | XMS_ITS | Encounter Summary ---
Author Organization [facility] Address [address] [facility] [address] [place] [address] Phone Care Team Providers Care Flavor Extractor Name Role Phone Ahsan Gilliam MD Primary Care Provider [phone] Encounter Details Date Type Department Care Team (Late st Contact Info) Description 06/22/2023 Orders Only [facility], [facility] [address] [facility] [address] [place] [address] Stage 5 chronic kidney disease [...] (HCC) documented in this encounter Care Teams Flavor Extractor Relationship Specialty Start Date End Date Ahsan Gilliam MD [address] [facility] [address] [place] [address] PCP - General Family Medicine 06/22/23 documented as of this encounter
[2025-07-20 09:14] LABS: Hematocrit 35.0 % (37-53); Hemoglobin 11.30 g/dL (11.27-16.99); Mean Corpuscular HGB Conc 32.3 g/dL (30-55); Mean Corpuscular Hemoglobin 29.6 pg (27-33); Mean Corpuscular Volume 91.6 fl (82-101); Nucleated Red Blood Cells % 0 %; Platelet Count 308 10^3/cmm (157-399); Red Blood Count 3.82 10^6/uL (3.85-5.65); White Blood Count 7.56 10^3/uL (3.29-11.43)
[2025-07-20] MEDS: midazolam 1 mg/mL INJ 2 mL 2 MG IVP (09:23)
[2025-07-20] MEDS: rocuronium 10 mg/mL INJ 5mL 50 MG IVP (09:29)
[2025-07-20 09:33] LABS: Lactic Sepsis W/Reflex 1.0 mmol/L (0.5-2.2)
[2025-07-20 09:34] LABS: Alanine Aminotransferase 20 U/L (0-41); Albumin Level 3.7 g/dL (3.5-5.2); Alkaline Phosphatase 116 U/L (40-130); Anion Gap 18.7 (5-19); Aspartate Amino Transferase 34 U/L (0-40); Blood Urea Nitrogen 71 mg/dL (6-20); Calcium 9.7 mg/dL (8.5-10.5); Carbon Dioxide 25 mmol/L (22-29); Chloride 97 mmol/L (98-107); Globulin 3.7 g/dL (1.3-4.6); Glucose 149 mg/dL (65-115); Osmolality Calculated 306 mOsm/kg (285-295); Potassium 4.7 mmol/L (3.5-5.1); Sodium 136 mmol/L (136-145); Total Protein 7.4 g/dL (6.6-8.7)
[2025-07-20 09:43] LABS: ABG PCO2 34.5 mmHg (35-45); ABG PH Result 7.47 (7.35-7.45); Alveolar-Arterial Oxygen Gradi 23.0 mmHg (5-10); Arterial Blood Gas Hematocrit 33.1 % (42-52); Blood Gas Allen Test Pos; Blood Gas Operator Identificat WALCI; Blood Gas Sample Site Radial, right; Blood Gas Sample Type Arterial; Blood Gas Tidal Volume 0.48; Carboxyhemoglobin 0.6 %THgb (0.4-20.1); Glucose Level-ABG 147.0 mg/dL (70-115); HCO3 ABG 25.3 mmol/L (22-26); Ionized Calcium Level - ABG 1.2 mmol/L (1.1-1.4); Methemoglobin 1.1 % (0.4-1.5); Oxygen Saturation ABG > 99.1; PEEP 5.0 cmH20; PO2 ABG 480.0 mmHg (80.0-100.0); PO2 FiO2 Ratio Arterial Blood 480; Potassium Level - ABG 4.6 mmol/L (3.5-5.0); Sodium Level - ABG 140.0 mmol/L (131-143)
[2025-07-20] MEDS: methylPREDNISolone sod succ 125 mg/2 mL INJ IVP (09:56)
[2025-07-20] MEDS: diphenhydrAMINE 50 mg/mL SDV 1mL IVP (09:56)
--- NOTE | 2025-07-20 10:00 | PC.NURSE ---
Spoke with Pt guardian Bhargav Garrett, he is agreeable to admit PT to our ICU.
[2025-07-20] MEDS: midazolam hcl 100 MG/100 ML BAG IV (10:06)
[2025-07-20 10:18] LABS: Glucose Urine UA Negative (Normal); Nitrate Urine Negative (Negative); Specific Gravity, Urine 1.017 (1.005-1.030)
--- NOTE | 2025-07-20 11:46 | PM.HP ---
Documented by User: JUDAH Coleman STDFARZANA 07/20/25 12:08 Providers/Chief Complaint Admitting Physician: Enrique Valdes MD Primary Care Provider: Valente Harding DO Chief Complaint: ams - facial angioedema History of Present Illness Tyrese Leach is a 55 year old male with history of HTN, ESRD on dialysis, and type 1 diabetes who presents with worsening altered mental status. He was intubated, and history was obtained from caregivers. He has a one day history of somnolence and confusion beginning after breakfast. He was noted to be increasingly somnolent throughout the day when checked at mealtimes with opening eye responses at lunch and no opening eye response at dinner. He was given two Glucerna doses during the day, and blood sugar was measured at 126. He was brought to the ER whose primary concern was to get him dialysis. He was discharged stable with no evidence of CVA, hemorrhage, infection, EKG ST changes, nor arrhythmias. Patient was brought back to the ER by caregivers due to worsening AMS and swelling of the mouth and tongue. Decision was made to intubate patient due to worsening angioedema. Review of Systems Narrative: ROS unable to be assessed due to mental status and medical condition requiring intubation. Medications/Allergies Home Medications ?Medication ?Instructions ?Recorded ?Confirmed ?Last Taken ?Type amlodipine 10 mg tablet 10 mg PO DAILY@03/30/23 07/20/25 07/19/25 09:00 History multivitamin with folic acid 400 1 tab PO DAILY@03/30/23 07/20/25 06/15/25 History mcg tablet (Daily-Sean (with folic acid)) acetaminophen 325 mg tablet 650 mg PO QID PRN Pain 09/04/24 07/20/25 07/13/25 History (Tylenol) ondansetron 4 mg disintegrating 4 mg PO Q6H PRN nausea and 02/11/25 07/20/25 Unknown Rx tablet vomiting #10 tabs mupirocin 2 % topical ointment 1 applic topical BID #15 grams 03/26/25 07/20/25 06/15/25 Rx Wheelchair pad #1 ea 04/28/25 07/20/25 Unknown Rx trazodone 100 mg tablet 300 mg PO QPM 04/28/25 07/20/25 07/18/25 20:00 History gabapentin 300 mg capsule 300 mg PO TID #90 caps 05/23/25 07/20/25 07/19/25 13:00 Rx dextrose 40 % oral gel (Glucose 15 g PO Q15M PRN low bs 05/28/25 07/20/25 Unknown History Gel) lidocaine 5 % topical patch 1 patch topical DAILY 05/28/25 07/20/25 07/17/25 History lurasidone 120 mg tablet 60 mg PO BID 05/28/25 07/20/25 07/19/25 08:00 History polyethylene glycol 3350 17 gram 17 g PO DAILY 05/28/25 07/20/25 06/15/25 History oral powder packet (Miralax) loperamide 2 mg tablet See Rx Instructions .Route 06/09/25 07/20/25 Unknown Rx (Anti-Diarrheal (loperamide)) .COMPLEX #30 ea aripiprazole 15 mg tablet See Rx Instructions .Route 06/16/25 07/20/25 07/19/25 08:00 Rx .COMPLEX #90 tabs carvedilol 12.5 mg tablet See Rx Instructions .Route 06/16/25 07/20/25 07/19/25 08:00 Rx .COMPLEX #60 tabs isosorbide mononitrate 60 mg See Rx Instructions .Route 06/17/25 07/20/25 07/19/25 08:00 Rx tablet,extended release 24 hr .COMPLEX #30 tabs insulin lispro 100 unit/mL See Rx Instructions SUBCUT TID #15 06/24/25 07/20/25 Unknown Rx subcutaneous pen (Humalog KwikPen mL (U-100) Insulin) aspirin 325 mg tablet,delayed See Rx Instructions .Route 06/26/25 07/20/25 07/19/25 08:00 Rx release .COMPLEX #30 ea benztropine 1 mg tablet See Rx Instructions .Route 06/26/25 07/20/25 07/19/25 08:00 Rx .COMPLEX #180 tabs famotidine 20 mg tablet See Rx Instructions .Route 06/26/25 07/20/25 07/19/25 08:00 Rx .COMPLEX #60 tabs lisinopril 40 mg tablet See Rx Instructions .Route 06/26/25 07/20/25 07/18/25 20:00 Rx .COMPLEX #30 tabs blood glucose control, normal #1 ea 07/01/25 07/20/25 Unknown Rx (True Metrix Level 2 solution) blood sugar diagnostic (Blood #200 ea 07/01/25 07/20/25 Unknown Rx Glucose Test strips) cetirizine 10 mg tablet See Rx Instructions .Route 07/01/25 07/20/25 07/18/25 20:00 Rx .COMPLEX #90 tabs clonazepam 0.5 mg tablet 0.5 mg PO .COMPLEX #12 tabs 07/01/25 07/20/25 07/17/25 08:00 Rx lancets #200 ea 07/01/25 07/20/25 Unknown Rx pen needle, diabetic 31 gauge x #100 ea 07/01/25 07/20/25 Unknown Rx 5/16 (Pen Needle) starch (thickening) (Thick-It oral See Rx Instructions .Route 07/01/25 07/20/25 07/19/25 08:00 Rx powder) .COMPLEX #1,020 grams WHEELCHAIR WITH SEAT BELT AND #1 ea 07/15/25 07/20/25 Unknown Rx HARNESS baclofen 10 mg tablet 10 mg PO TID PRN muscle spasm 30 07/15/25 07/20/25 07/18/25 18:00 Rx days #90 tabs hydrocodone 7.5 mg-acetaminophen 1 tab PO Q6H PRN pain 30 days #120 07/15/25 07/20/25 07/19/25 08:00 Rx 325 mg tablet tabs naloxone 4 mg/actuation nasal 1 spray intranasal Q3M #2 ea 07/15/25 07/20/25 Unknown Rx spray (Narcan) atorvastatin 10 mg tablet 10 mg PO BEDTIME 07/20/25 07/20/25 07/18/25 20:00 History escitalopram oxalate 10 mg tablet 15 mg PO DAILY 07/20/25 07/20/25 07/19/25 08:00 History fenofibrate 160 mg tablet 160 mg PO DAILY 07/20/25 07/20/25 07/19/25 08:00 History nut.tx.gluc.intol,lac-free,soy 1 ea PO PRN PRN REFUSING MEALS 07/20/25 07/20/25 07/19/25 History (Glucerna oral liquid) vit A 600 mcg-vit D3 50 mcg-vit E 1 cap PO DAILY 07/20/25 07/20/25 07/19/25 08:00 History 101 mg-vit K1 1,000 mcg capsule (DEKAs Essential) Allergies Allergy/AdvReac Type Severity Reaction Status Date / Time No Known Allergies Allergy Verified 06/25/25 13:13 PFSH Acute PFSH: Medical History Malignant hypertension ESRD (end stage renal disease) Hyperlipemia, mixed Acute renal failure Acute kidney injury superimposed on CKD Acute hyponatremia Hyponatremia Anemia Hypervolemia Tobacco abuse Diabetes Social History Smoking and tobacco/nicotine status: current every day tobacco/nicotine user cigarettes Alcohol intake: former Substance/Drug Use: former Vitals/I&O/Wt Last Vital Signs Pulse 90 07/20/25 11:00 Resp 14 07/20/25 11:02 BP 128/73 07/20/25 11:00 Pulse Ox 100 07/20/25 11:02 O2 Del Method Mechanical Ventilation 07/20/25 10:00 FiO2 35 07/20/25 11:02 Weight last 48 hrs Weight 58.967 kg Physical Exam Const: EXAM LIMITATIONS: altered mental status and other limitations (intubated) NUTRITIONAL APPEARANCE: thin Eye: SCLERA: scleral abnormal (icteric) Laterality of scleral abnormality: positive bilateral Resp: AUSCULTATION: other (ventilator breath sounds) Cardio: RATE: regular rate HEART SOUNDS: S1 normal heart sound present and S2 normal heart sound present GI: AUSCULTATION: Yes normoactive bowel sounds PALPATION: Yes Soft to palpation Neuro: OTHER: Unable to assess due to AMS and sedation Skin: COMMON NORMALS: no rashes or lesions noted Urinary Catheter Management: Ramos: Cath Placed During This Visit: yes Urinary Catheter Date of Insertion: 07/20/25 Urinary Catheter Time of Insertion: 10:00 Data 07/20/25 09:08 07/20/25 09:08 Micro: Microbiology 07/20/25 11:24 Blood Culture - Preliminary Blood SPECIMEN COLLECTED 07/20/25 09:08 Blood Culture - Preliminary Blood SPECIMEN COLLECTED A&P Assessment and plan 1. Angioedema: 2. Acute hypoxic respiratory failure: 3. Sepsis: 4. ARDS (adult respiratory distress syndrome): 5. Aspiration pneumonia: Plan: 1. Encephalopathy 2. Respiratory failure 3. End-stage renal disease on dialysis PDMP PDMP Reviewed: Not Reviewed Attestations Medical Necessity Statement*: intubation and altered mental status Coding Level of Care Code Critical Care >/= 30 minutes Diagnoses Angioedema T78.3XXA Acute hypoxic respiratory failure J96.01 Sepsis A41.9 ARDS (adult respiratory distress syndrome) J80 Aspiration pneumonia J69.0 Sepsis Event Note Problem List 1. Angioedema: Status: Acute 2. Acute hypoxic respiratory failure: Status: Resolved 3. Sepsis: Status: Acute 4. ARDS (adult respiratory distress syndrome): Status: Acute 5. Aspiration pneumonia: Status: Resolved Documented by User: Enrique Valdes MD 07/20/25 16:19 Providers/Chief Complaint Chief Complaint: ams - facial angioedema History of Present Illness Tyrese Leach is a 55 year old male with history of HTN, ESRD on dialysis, and type 1 diabetes who presents with worsening altered mental status. He was intubated, and history was obtained from caregivers. He has a one day history of somnolence and confusion beginning after breakfast. He was noted to be increasingly somnolent throughout the day when checked at mealtimes with opening eye responses at lunch and no opening eye response at dinner. He was given two Glucerna doses during the day, and blood sugar was measured at 126. He was brought to the ER whose primary concern was to get him dialysis. He was discharged stable with no evidence of CVA, hemorrhage, infection, EKG ST changes, nor arrhythmias. Patient was brought back to the ER by caregivers due to worsening AMS and swelling of the mouth and tongue. On arrival patient had acute respiratory distress, concern for angioedema, was intubated without difficulty, with the need for anesthesia support, concerns for diffuse edema of the airway and the vocal cords, bougie passing through cords was difficult, currently ET tube 1.5 cm above the kalani, currently patient is intubated, sedated on mechanical ventilation, Medications/Allergies Home Medications ?Medication ?Instructions ?Recorded ?Confirmed ?Last Taken ?Type amlodipine 10 mg tablet 10 mg PO DAILY@03/30/23 07/20/25 07/19/25 09:00 History multivitamin with folic acid 400 1 tab PO DAILY@03/30/23 07/20/25 06/15/25 History mcg tablet (Daily-Sean (with folic acid)) acetaminophen 325 mg tablet 650 mg PO QID PRN Pain 09/04/24 07/20/25 07/13/25 History (Tylenol) ondansetron 4 mg disintegrating 4 mg PO Q6H PRN nausea and 02/11/25 07/20/25 Unknown Rx tablet vomiting #10 tabs mupirocin 2 % topical ointment 1 applic topical BID #15 grams 03/26/25 07/20/25 06/15/25 Rx Wheelchair pad #1 ea 04/28/25 07/20/25 Unknown Rx trazodone 100 mg tablet 300 mg PO QPM 04/28/25 07/20/25 07/18/25 20:00 History gabapentin 300 mg capsule 300 mg PO TID #90 caps 05/23/25 07/20/25 07/19/25 13:00 Rx dextrose 40 % oral gel (Glucose 15 g PO Q15M PRN low bs 05/28/25 07/20/25 Unknown History Gel) lidocaine 5 % topical patch 1 patch topical DAILY 05/28/25 07/20/25 07/17/25 History lurasidone 120 mg tablet 60 mg PO BID 05/28/25 07/20/25 07/19/25 08:00 History polyethylene glycol 3350 17 gram 17 g PO DAILY 05/28/25 07/20/25 06/15/25 History oral powder packet (Miralax) loperamide 2 mg tablet See Rx Instructions .Route 06/09/25 07/20/25 Unknown Rx (Anti-Diarrheal (loperamide)) .COMPLEX #30 ea aripiprazole 15 mg tablet See Rx Instructions .Route 06/16/25 07/20/25 07/19/25 08:00 Rx .COMPLEX #90 tabs carvedilol 12.5 mg tablet See Rx Instructions .Route 06/16/25 07/20/25 07/19/25 08:00 Rx .COMPLEX #60 tabs isosorbide mononitrate 60 mg See Rx Instructions .Route 06/17/25 07/20/25 07/19/25 08:00 Rx tablet,extended release 24 hr .COMPLEX #30 tabs insulin lispro 100 unit/mL See Rx Instructions SUBCUT TID #15 06/24/25 07/20/25 Unknown Rx subcutaneous pen (Humalog KwikPen mL (U-100) Insulin) aspirin 325 mg tablet,delayed See Rx Instructions .Route 06/26/25 07/20/25 07/19/25 08:00 Rx release .COMPLEX #30 ea benztropine 1 mg tablet See Rx Instructions .Route 06/26/25 07/20/25 07/19/25 08:00 Rx .COMPLEX #180 tabs famotidine 20 mg tablet See Rx Instructions .Route 06/26/25 07/20/25 07/19/25 08:00 Rx .COMPLEX #60 tabs lisinopril 40 mg tablet See Rx Instructions .Route 06/26/25 07/20/25 07/18/25 20:00 Rx .COMPLEX #30 tabs blood glucose control, normal #1 ea 07/01/25 07/20/25 Unknown Rx (True Metrix Level 2 solution) blood sugar diagnostic (Blood #200 ea 07/01/25 07/20/25 Unknown Rx Glucose Test strips) cetirizine 10 mg tablet See Rx Instructions .Route 07/01/25 07/20/25 07/18/25 20:00 Rx .COMPLEX #90 tabs clonazepam 0.5 mg tablet 0.5 mg PO .COMPLEX #12 tabs 07/01/25 07/20/25 07/17/25 08:00 Rx lancets #200 ea 07/01/25 07/20/25 Unknown Rx pen needle, diabetic 31 gauge x #100 ea 07/01/25 07/20/25 Unknown Rx 5/16 (Pen Needle) starch (thickening) (Thick-It oral See Rx Instructions .Route 07/01/25 07/20/25 07/19/25 08:00 Rx powder) .COMPLEX #1,020 grams WHEELCHAIR WITH SEAT BELT AND #1 ea 07/15/25 07/20/25 Unknown Rx HARNESS baclofen 10 mg tablet 10 mg PO TID PRN muscle spasm 30 07/15/25 07/20/25 07/18/25 18:00 Rx days #90 tabs hydrocodone 7.5 mg-acetaminophen 1 tab PO Q6H PRN pain 30 days #120 07/15/25 07/20/25 07/19/25 08:00 Rx 325 mg tablet tabs naloxone 4 mg/actuation nasal 1 spray intranasal Q3M #2 ea 07/15/25 07/20/25 Unknown Rx spray (Narcan) atorvastatin 10 mg tablet 10 mg PO BEDTIME 07/20/25 07/20/25 07/18/25 20:00 History escitalopram oxalate 10 mg tablet 15 mg PO DAILY 07/20/25 07/20/25 07/19/25 08:00 History fenofibrate 160 mg tablet 160 mg PO DAILY 07/20/25 07/20/25 07/19/25 08:00 History nut.tx.gluc.intol,lac-free,soy 1 ea PO PRN PRN REFUSING MEALS 07/20/25 07/20/25 07/19/25 History (Glucerna oral liquid) vit A 600 mcg-vit D3 50 mcg-vit E 1 cap PO DAILY 07/20/25 07/20/25 07/19/25 08:00 History 101 mg-vit K1 1,000 mcg capsule (DEKAs Essential) Allergies Allergy/AdvReac Type Severity Reaction Status Date / Time No Known Allergies Allergy Verified 06/25/25 13:13 PFSH Acute PFSH: Medical History Malignant hypertension ESRD (end stage renal disease) Hyperlipemia, mixed Acute renal failure Acute kidney injury superimposed on CKD Acute hyponatremia Hyponatremia Anemia Hypervolemia Tobacco abuse Diabetes Social History Smoking and tobacco/nicotine status: current every day tobacco/nicotine user cigarettes Alcohol intake: former Substance/Drug Use: former Physical Exam HENMT: OTHER: Has lip swelling, no tongue swelling, no facial swelling, Eye: OTHER: Pupils are pinpoint and minimally reactive to light Neck/C-Spine: COMMON NORMALS: full ROM and no lymphadenopathy Lymph: LYMPHATIC: no lymphadenopathy noted Resp: AUSCULTATION: crackles and wheezes OTHER: - Wheezing in the lung moraes Cardio: COMMON NORMALS: S1 normal heart sound present, S2 normal heart sound present and No gallops present (Cardio) RATE: regular rate RHYTHM: regular rhythm GI: OTHER: Abdomen is soft, nondistended, nontender, good bowel sounds, no guarding, no rebound, no rigidity : COMMON NORMALS: Yes no CVA tenderness Urinary Catheter Management: Ramos: Cath Placed During This Visit: yes Data 07/20/25 09:08 07/20/25 09:08 A&P Assessment and plan 1. Angioedema: 2. Acute hypoxic respiratory failure: 3. Sepsis: 4. ARDS (adult respiratory distress syndrome): 5. Aspiration pneumonia: Plan: Angioedema/allergic reaction - Etiology unclear question, adverse reaction to baclofen which is new medication that he has been on, he is on lisinopril - Found to have difficult airway, diffuse edema of the airway, vocal cords, difficulty with bougie passing through vocal cords - Status post FFP, Pepcid, Benadryl, Solu-Medrol - On examination swelling around the mouth, lips, tongue has improved Plan -Continue to monitor - Continue Solu-Medrol, Pepcid, Zyrtec - Will consider further doses of FFP/TXA - Hold lisinopril Acute hypoxic respiratory failure - Aspiration pneumonia, history of recurrent aspiration - Aspiration pneumonitis - Acute flash pulmonary edema - Angioedema Plan - Currently intubated, sedated on mechanical ventilation -Sedation vacation - Propofol for sedation - Fentanyl for pain control sedation -Nephrology consulted for urgent dialysis - Vancomycin - Meropenem - Solu-Medrol 40 mg IV every 8 hours -DuoNeb, budesonide - PICC line placed Sepsis - Secondary to UTI, pneumonia urinary tract infection - Antibiotics as above Acute encephalopathy -Secondary to UTI, pneumonia, sepsis Type 1 diabetes mellitus - Moderate dose sliding scale Hypertensive urgency - Cardene drip Full code Pepcid for GI prophylaxis Heparin for DVT prophylaxis PDMP PDMP Reviewed: Not Reviewed Attestations Medical Necessity Statement*: Patient requires hospitalization for acute hypoxic respiratory failure, acute encephalopathy, aspiration, UTI, sepsis, acute flash pulmonary edema, angioedema, inpatient, greater than 2 midnights Coding Level of Care Code Critical Care >/= 30 minutes Critical care time (in minutes): 45 The high probability of a clinically significant, sudden or life threatening deterioration, as referenced in this documentation, required my full and direct attention, intervention and personal management. The critical care time shown is in addition to time spent performing any reported separately billable procedures and includes the following: [x] Data and vital sign review and interpretation [x] Patient assessment, examination and intervention [x] Medication orders and management [x] Patient/Family updates as able [x] Care Coordination and Documentation. Diagnoses Angioedema T78.3XXA Acute hypoxic respiratory failure J96.01 Sepsis A41.9 ARDS (adult respiratory distress syndrome) J80 Aspiration pneumonia J69.0 Sepsis Event Note Evaluation Current stage of sepsis: sepsis Possible source: pulmonary Focused Exam Vital Signs Pulse Resp BP Pulse Ox O2 Del Method FiO2 07/20/25 15:15 72 14 191/87 100 07/20/25 15:10 73 14 191/87 100 07/20/25 15:05 74 14 190/ 100 07/20/25 15:00 72 14 190/ 100 07/20/25 14:55 74 14 185/89 100 07/20/25 14:50 74 14 185/89 100 07/20/25 14:45 74 14 183/87 100 07/20/25 14:40 74 14 183/87 100 07/20/25 14:35 75 14 171/83 100 07/20/25 14:30 208/96 07/20/25 14:25 208/96 07/20/25 14:20 208/96 07/20/25 14:15 208/96 07/20/25 14:10 208/96 07/20/25 14:05 71 14 208/96 100 07/20/25 14:00 75 14 191/92 100 07/20/25 13:55 93 22 H 191/92 100 07/20/25 13:52 14 100 30 07/20/25 13:50 86 18 191/92 100 07/20/25 13:45 68 192/91 100 07/20/25 13:40 67 192/91 100 07/20/25 13:35 68 192/91 100 07/20/25 13:30 67 199/94 100 07/20/25 13:25 67 199/94 100 07/20/25 13:20 79 199/94 07/20/25 13:15 67 212/96 100 07/20/25 13:10 66 212/96 100 07/20/25 13:05 66 212/96 100 07/20/25 13:00 68 173/80 100 07/20/25 12:55 72 173/80 100 10 12:50 71 173/80 100 10 12:45 69 173/80 100 10 12:40 65 167/81 100 10 12:40 Mechanical Ventilation 07/20/25 12:35 67 167/81 100 10 12:30 70 167/81 100 10 12:25 70 150/77 100 10 12:25 69 167/81 100 10 12:20 71 150/77 100 10 12:15 67 150/77 100 10 12:10 70 117/63 100 10 12:10 67 150/77 100 10 12:05 78 117/63 100 10 12:00 82 143/80 10 11:55 68 143/80 100 10 11:54 76 14 143/80 100 07/20/25 11:50 76 131/76 100 10 11:45 76 131/76 100 10 11:40 77 135/77 100 10 11:35 76 135/77 100 10 11:30 76 135/77 100 10 11:25 77 130/76 100 10 11:20 76 130/76 100 10 11:15 76 176/102 10 11:10 73 176/102 100 10 11:05 67 176/102 100 10 11:02 14 100 35 10 11:00 90 128/73 1020 10:55 76 128/73 100 10 10:50 76 128/73 100 10 10:45 70 128/73 100 10 10:40 73 122/76 100 10 10:35 75 122/76 100 10 10:30 74 122/76 100 10 10:25 76 123/74 100 1020/ 10:20 76 123/74 100 1020 10:15 76 123/74 100 1020 10:10 77 109/66 100 10 10:08 77 109/66 100 07/20/25 10:00 82 109/66 100 Mechanical Ventilation 07/20/25 09:59 82 14 100 Mechanical Ventilation 40 07/20/25 09:49 14 100 07/20/25 09:45 77 120/64 100 Mechanical Ventilation 07/20/25 09:30 98 150/82 100 Mechanical Ventilation 07/20/25 08:57 73 22 H 167/91 100 Room Air Respiratory exam: Present wheezes Cardiovascular exam: Present RRR, S1 and S2 Capillary refill: < 3 Seconds Peripheral pulse strength: 2+ Slightly Diminished Peripheral pulse location: Radial Date exam was performed: 07/20/25 Time exam was performed: 16:02 Problem List 1. Angioedema: Status: Acute 2. Acute hypoxic respiratory failure: Status: Resolved 3. Sepsis: Status: Acute 4. ARDS (adult respiratory distress syndrome): Status: Acute 5. Aspiration pneumonia: Status: Resolved
--- NOTE | 2025-07-20 12:03 | PC.NURSE ---
WHILE ATTEMPTING TO SCAN PLASMA PRODUCT, PRODUCT NUMBER, PRODUCT TYPE AND PRODUCT EXPIRATION DATE WAS UNABLE TO BE SCANNED. THE EXPIRATION DATE WAS MARKED OUT WITH PEN AND WRITTEN ON THE PRODUCT. THE PRODUCT TYPE AND NUMBER WERE UNABLE TO BE SCANNED DUE TO THE LABEL PRINTING. THIS NURSE WENT TO LAB TO MAKE SURE WE HAD THE RIGHT PRODUCT. LAB INFORMED THIS NURSE THAT THE CORRECT INFORMATION WAS ON THE PRODUCT BUT THAT THE SIEBEL ADMINISTRATOR FOR THE PLASMA WAS ON ITS WAY. THIS NURSE AND NURSE ORTHOPEDIC TWO NURSE VERIFIED THE CORRECT INFORMATION ON THE PRODUCT PRIOR TO ADMINISTRATION.
[2025-07-20] MEDS: linezolid premix 600 MG/300 ML PREMIX 300 MG IV (12:10)
--- NOTE | 2025-07-20 12:30 | XR_ITS ---
WS: [id number] PORTABLE CHEST HISTORY: Post PICC insertion COMPARISON: 07/20/2025 Right-sided PICC line in good position. Tip terminates at the cavoatrial junction. Dual lumen IJ dialysis catheter is also noted projecting over the RIGHT heart. Endotracheal tube in good position. Subsegmental atelectasis in the LEFT lower lung field. No pneumothorax. No pleural effusion or pneumothorax. Cardiac size: Normal. Mediastinum/Aorta: Normal mediastinum. No osseous abnormality seen. XR/XR chest 1V portable [id number] IMPRESSION: 1. Right-sided PICC line in good position. Terminates at the cavoatrial juncti on. 2. Endotracheal tube in good position ending 1.5 cm above the kalani. 3. Subsegmental atelectasis LEFT lower lung field.
[2025-07-20 12:38] LABS: INR 1.00 (0.8-1.2); Partial Thromboplastin Time 34.9 SECONDS (23.9-36.7); Prothrombin Time 13.90 SECONDS (12.1-14.9)
[2025-07-20 12:52] LABS: Thyroid Stimulating Hormone 1.46 uIU/mL (0.27-4.20)
[2025-07-20 12:53] LABS: ABG PCO2 26.4 mmHg (35-45); Alveolar-Arterial Oxygen Gradi 7.1 mmHg (5-10); Arterial Blood Gas Hematocrit 31.1 % (42-52); Blood Gas Allen Test Pos; Blood Gas Operator Identificat WLCI; Blood Gas Sample Site Radial, right; Blood Gas Sample Type Arterial; Blood Gas Tidal Volume 0.48; Carboxyhemoglobin 0.7 %THgb (0.4-20.1); Glucose Level-ABG 196.0 mg/dL (70-115); HCO3 ABG 24.3 mmol/L (22-26); Ionized Calcium Level - ABG 1.1 mmol/L (1.1-1.4); Methemoglobin 1.0 % (0.4-1.5); Oxygen Saturation ABG > 99.1; PEEP 5.0 cmH20; PO2 ABG 157.0 mmHg (80.0-100.0); PO2 FiO2 Ratio Arterial Blood 448; Potassium Level - ABG 4.0 mmol/L (3.5-5.0); Sodium Level - ABG 138.0 mmol/L (131-143)
[2025-07-20 12:54] LABS: ABG PH Result 7.57 (7.35-7.45)
--- NOTE | 2025-07-20 13:00 | CTR_ITS ---
PROCEDURE INFORMATION: Exam: CT Chest Without Contrast; Diagnostic Exam date and time: 07/20/2025 2:18 PM Age: 55 years old Clinical indication: Other: SOB; Shortness of breath TECHNIQUE: Imaging protocol: Diagnostic computed tomography of the chest without contrast. Radiation optimization: All CT scans at this facility use at least one of these dose optimization techniques: automated exposure control; mA and/or kV adjustment per patient size (includes targeted exams where dose is matched to clinical indication); or iterative reconstruction. COMPARISON: CT angio chest PE protcl [id number] 06/15/2025 3:29 PM RADIATION DOSE METRICS: Total DLP (mGy-cm): 528.05 FINDINGS: Tubes, catheters and devices: ETT terminates 1 cm above the kalani. Right IJ central line terminates in the right atrium. Right arm PICC terminates in the right atrium. Lungs: Small amounts of bilateral mostly dependent pneumonitis and/or edema with some atelectasis is all considerably improved. Otherwise, grossly unremarkable. Pleural spaces: Unremarkable. No pneumothorax. No pleural effusion. Heart: Unchanged mild cardiomegaly. Coronary arteries: No calcification in the visualized coronary arteries. Lymph nodes: Unremarkable. No enlarged lymph nodes. Vasculature: Unremarkable. No aortic aneurysm. Bones/joints: Unremarkable. No acute fracture. Soft tissues: Unchanged body wall edema. Otherwise, unremarkable visualized body wall. Otherwise, unremarkable soft tissues. PROCEDURE INFORMATION: Exam: CT Abdomen And Pelvis Without Contrast Exam date and time: 07/20/2025 2:18 PM Age: 55 years old Clinical indication: Other: SOB; Shortness of breath TECHNIQUE: Imaging protocol: Computed tomography of the abdomen and pelvis without contrast. Radiation optimization: All CT scans at this facility use at least one of these dose optimization techniques: automated exposure control; mA and/or kV adjustment per patient size (includes targeted exams where dose is matched to clinical indication); or iterative reconstruction. COMPARISON: CT abdomen pelvis wo con [id number] 01/23/2025 6:17 PM RADIATION DOSE METRICS: Total DLP (mGy-cm): 528.05 FINDINGS: Limitations: Limited by lack of oral and intravenous contrast and the patient's thin habitus. Liver: Areas of liver heterogeneity are suspected. Otherwise, unremarkable. Gallbladder and biliary ducts: Normal. No calcified stones. No ductal dilation. Pancreas: Normal. No ductal dilation. Spleen: Normal. No splenomegaly. Adrenal glands: Normal. No mass. Kidneys and ureters: Normal. No hydronephrosis. Stomach and bowel: Due to lack of oral contrast and the patient's thin habitus, bowel and adjacent structures are closely packed together, so are suboptimally evaluated. There is no obvious acute pathology involving bowel or these adjacent structures, but given this limitation, subtle acute pathology involving bowel and these adjacent structures, such as inflammation, cannot be entirely excluded on the basis of this examination. If there is clinical concern of such, a repeat CT scan with adequate bowel contrast might offer clarification. Appendix: The appendix is not clearly identified. Intraperitoneal space: Unremarkable. No free air. No significant fluid collection. Vasculature: Unchanged small amount of arterial calcification. Otherwise, unremarkable. Lymph nodes: No obvious lymphadenopathy, but evaluation for such is markedly limited. Urinary bladder: Unchanged transurethral Ramos catheter in the urinary bladder. Unchanged diffuse bladder wall thickening could be chronic or recurrent cystitis. Otherwise, unremarkable. Reproductive: Unremarkable. Bones/joints: Again noted are compression deformities of the L2 and L3 vertebral bodies, both containing osteoplasty cement. However, the degenerative changes with associated fragmentation and osseous irregularity have increased. This raises the possibility of pathologic fractures or underlying discitis/osteomyelitis. Otherwise, unremarkable. Soft tissues: Unchanged diffuse body wall edema. Unchanged small amount of scarring anterior left pelvic wall. Otherwise, unremarkable visualized body wall. Otherwise, unremarkable soft tissues. CT/[place] [id number] IMPRESSION: 1. Small amounts of bilateral mostly dependent pneumonitis and/or edema with some atelectasis is all considerably improved. 2. No other acute thoracic findings. 3. Additional details as above. IMPRESSION: 1. Again noted are compression deformities of the L2 and L3 vertebral bodies, both containing osteoplasty cement. However, the degenerative changes with associated fragmentation and osseous irregularity have increased. This raises the possibility of pathologic fractures or underlying discitis/osteomyelitis at this level. Recommend contrast-enhanced MRI of this. 2. Areas of liver heterogeneity are suspected. This may simply be artifact, but liver neoplasm should be considered. Recommend contrast-enhanced MRI of this. 3. Due to lack of oral contrast and the patient's thin habitus, bowel and adjacent structures are closely packed together, so are suboptimally evaluated. There is no obvious acute pathology involving bowel or these adjacent structures, but given this limitation, subtle acute pathology involving bowel and these adjacent structures, such as inflammation, cannot be entirely excluded on the basis of this examination. If there is clinical concern of such, a repeat CT scan with adequate bowel contrast might offer clarification. 4. No other acute abdominal or pelvic findings identified, but evaluation for such is markedly limited. 5. Additional details as above.
[2025-07-20 13:14] LABS: NT Pro B Type Natriuretic Pept 43814 pg/mL (0-125)
--- NOTE | 2025-07-20 13:43 | PICC.NOTE ---
Triple lumen PICC placed to right basilic vein. Referred to vascular access nurse for PICC placement due to need for vasopressors and multiple IV gtts. Risks and benefits discussed and informed consent obtained from legal guardian, Bhargav Garrett, via phone. Right arm assessed with right basilic vein measuring 3.8 mm, straight, and apparent best choice for placement. Using sterile technique and MST, right basilic vein accessed x 1 stick. Mid-arm circumference measured 10 cm from right AC 21 cm. Trimmed cath 40 cm with 0 cm external length noted. CXR shows tip in cavoatrial junction, in good position for use per radiologist. Line secured with stat-lock. Insertion site covered with Biopatch and TSM. Report given to bedside nurse, ZHANE Bazan.
--- NOTE | 2025-07-20 13:43 | PHA.VACGOAL ---
Vancomycin Goal - Goal Vancomycin Goal:: 15-20 mg/L Vancomycin Indication:: Other - Therapy Current therapy:: Meropenem Day of therpy:: Day []of [] . Actual body weight (kg): 130 lb - Data Labs: WBC 7.56 10^3/uL (3.29-11.43) 07/20/25 09:08 RBC 3.82 10^6/uL (3.85-5.65) L 07/20/25 09:08 Hgb 11.30 g/dL (11.27-16.99) 07/20/25 09:08 Hct 35.0 % (37-53) L 07/20/25 09:08 MCV 91.6 fl (82-101) 07/20/25 09:08 MCH 29.6 pg (27-33) 07/20/25 09:08 MCHC 32.3 g/dL (30-55) 07/20/25 09:08 RDW 15.1 % (12.1-15.1) 07/20/25 09:08 Sodium 136 mmol/L (136-145) 07/20/25 09:08 Potassium 4.7 mmol/L (3.5-5.1) 07/20/25 09:08 Chloride 97 mmol/L (98-107) L 07/20/25 09:08 Carbon Dioxide 25 mmol/L (22-29) 07/20/25 09:08 Anion Gap 18.7 (5-19) 07/20/25 09:08 BUN 71 mg/dL (6-20) H 07/20/25 09:08 Creatinine 3.6 mg/dL (0.7-1.2) H 07/20/25 09:08 GFR Calculation 21.3 mL/min (90-130) L 07/20/25 09:08 Last dialysis session:: Last session Treatment plan:: new consult Regimen:: INITIAL LOADING DOSE OF 1500 MG X 1 PER DOSING PROTOCOL. PATIENT ON HD UNKNOWN SCHEDULE AT THIS TIME. WILL DOSE PER HD SESSIONS. Follow up:: WILL OBTAIN LEVELS PRIOR TO HD SESSION
[2025-07-20] MEDS: fentaNYL 1,000 MCG/100 ML BAG 2.5 MCG IV (13:47)
[2025-07-20] MEDS: propofol 1,000 MG/100 ML INJ 1.77 MG IV (13:47)
[2025-07-20] MEDS: pantoprazole 40 mg SDV IVP (13:48)
[2025-07-20] MEDS: heparin 5,000 unit/mL INJ 1 mL 5000 UNIT SUBCUT ×2 (13:52→23:50)
--- NOTE | 2025-07-20 14:53 | PM.CONSULT ---
Providers/Reason For Consult Consulting Physician/Specialty*: [facility]/Nephrology Reason for Consult*: ESRD Attending Physician: Enrique Valdes MD Primary Care Provider: Valente Harding DO History of Present Illness History of Present Illness Tyrese Leach is a 55 year old male Patient is a 55-year-old male with past medical history of hypertension end-stage renal disease on dialysis, type 1 diabetes presented to the emergency department due to altered mental status. Patient family members have reported increasing somnolence. Patient was also noted to have swelling of the mouth and tongue. Patient was intubated in the emergency department for possible angioedema and was admitted to the ICU. Patient also noted to have pulmonary edema. Review of Systems Narrative: unable to obtain Medications/Allergies Home Medications ?Medication ?Instructions ?Recorded ?Confirmed ?Last Taken ?Type amlodipine 10 mg tablet 10 mg PO DAILY@03/30/23 07/20/25 07/19/25 09:00 History multivitamin with folic acid 400 1 tab PO DAILY@03/30/23 07/20/25 06/15/25 History mcg tablet (Daily-Sean (with folic acid)) acetaminophen 325 mg tablet 650 mg PO QID PRN Pain 09/04/24 07/20/25 07/13/25 History (Tylenol) ondansetron 4 mg disintegrating 4 mg PO Q6H PRN nausea and 02/11/25 07/20/25 Unknown Rx tablet vomiting #10 tabs mupirocin 2 % topical ointment 1 applic topical BID #15 grams 03/26/25 07/20/25 06/15/25 Rx Wheelchair pad #1 ea 04/28/25 07/20/25 Unknown Rx trazodone 100 mg tablet 300 mg PO QPM 04/28/25 07/20/25 07/18/25 20:00 History gabapentin 300 mg capsule 300 mg PO TID #90 caps 05/23/25 07/20/25 07/19/25 13:00 Rx dextrose 40 % oral gel (Glucose 15 g PO Q15M PRN low bs 05/28/25 07/20/25 Unknown History Gel) lidocaine 5 % topical patch 1 patch topical DAILY 05/28/25 07/20/25 07/17/25 History lurasidone 120 mg tablet 60 mg PO BID 05/28/25 07/20/2507/19/25 08:00 History polyethylene glycol 3350 17 gram 17 g PO DAILY 05/28/25 07/20/25 06/15/25 History oral powder packet (Miralax) loperamide 2 mg tablet See Rx Instructions .Route 06/09/25 07/20/25 Unknown Rx (Anti-Diarrheal (loperamide)) .COMPLEX #30 ea aripiprazole 15 mg tablet See Rx Instructions .Route 06/16/25 07/20/25 07/19/25 08:00 Rx .COMPLEX #90 tabs carvedilol 12.5 mg tablet See Rx Instructions .Route 06/16/25 07/20/25 07/19/25 08:00 Rx .COMPLEX #60 tabs isosorbide mononitrate 60 mg See Rx Instructions .Route 06/17/25 07/20/25 07/19/25 08:00 Rx tablet,extended release 24 hr .COMPLEX #30 tabs insulin lispro 100 unit/mL See Rx Instructions SUBCUT TID #15 06/24/25 07/20/25 Unknown Rx subcutaneous pen (Humalog KwikPen mL (U-100) Insulin) aspirin 325 mg tablet,delayed See Rx Instructions .Route 06/26/25 07/20/25 07/19/25 08:00 Rx release .COMPLEX #30 ea benztropine 1 mg tablet See Rx Instructions .Route 06/26/25 07/20/25 07/19/25 08:00 Rx .COMPLEX #180 tabs famotidine 20 mg tablet See Rx Instructions .Route 06/26/25 07/20/25 07/19/25 08:00 Rx .COMPLEX #60 tabs lisinopril 40 mg tablet See Rx Instructions .Route 06/26/25 07/20/25 07/18/25 20:00 Rx .COMPLEX #30 tabs blood glucose control, normal #1 ea 07/01/25 07/20/25 Unknown Rx (True Metrix Level 2 solution) blood sugar diagnostic (Blood #200 ea 07/01/25 07/20/25 Unknown Rx Glucose Test strips) cetirizine 10 mg tablet See Rx Instructions .Route 07/01/25 07/20/25 07/18/25 20:00 Rx .COMPLEX #90 tabs clonazepam 0.5 mg tablet 0.5 mg PO .COMPLEX #12 tabs 07/01/25 07/20/25 07/17/25 08:00 Rx lancets #200 ea 07/01/25 07/20/25 Unknown Rx pen needle, diabetic 31 gauge x #100 ea 07/01/25 07/20/25 Unknown Rx 5/16 (Pen Needle) starch (thickening) (Thick-It oral See Rx Instructions .Route 07/01/25 07/20/25 07/19/25 08:00 Rx powder) .COMPLEX #1,020 grams WHEELCHAIR WITH SEAT BELT AND #1 ea 07/15/25 07/20/25 Unknown Rx HARNESS baclofen 10 mg tablet 10 mg PO TID PRN muscle spasm 30 07/15/25 07/20/25 07/18/25 18:00 Rx days #90 tabs hydrocodone 7.5 mg-acetaminophen 1 tab PO Q6H PRN pain 30 days #120 07/15/25 07/20/25 07/19/25 08:00 Rx 325 mg tablet tabs naloxone 4 mg/actuation nasal 1 spray intranasal Q3M #2 ea 07/15/25 07/20/25 Unknown Rx spray (Narcan) atorvastatin 10 mg tablet 10 mg PO BEDTIME 07/20/25 07/20/25 07/18/25 20:00 History escitalopram oxalate 10 mg tablet 15 mg PO DAILY 07/20/25 07/20/25 07/19/25 08:00 History fenofibrate 160 mg tablet 160 mg PO DAILY 07/20/25 07/20/25 07/19/25 08:00 History nut.tx.gluc.intol,lac-free,soy 1 ea PO PRN PRN REFUSING MEALS 07/20/25 07/20/25 07/19/25 History (Glucerna oral liquid) vit A 600 mcg-vit D3 50 mcg-vit E 1 cap PO DAILY 07/20/25 07/20/25 07/19/25 08:00 History 101 mg-vit K1 1,000 mcg capsule (DEKAs Essential) Allergies Allergy/AdvReac Type Severity Reaction Status Date / Time No Known Allergies Allergy Verified 06/25/25 13:13 Current Medications Generic Name Dose Route Start Last Admin Trade Name Freq PRN Reason Stop Dose Admin Heparin Sodium (Porcine) 5,000 unit 07/20/25 12:30 07/20/25 13:52 Heparin 5,000 Unit/Ml Inj 1 Ml SUBCUT 5,000 unit Q12H CARLOS Administration Midazolam HCl 100 mg in 100 mls @ 0 mls/hr 07/20/25 10:00 07/20/25 12:10 Versed IV 1 mg/hr .Q0M CARLOS 1 mls/hr Protocol Titration Per Protocol Propofol 1,000 mg in 100 mls @ 0 mls/hr 07/20/25 12:30 07/20/25 13:52 Diprivan IV 10 mcg/kg/min .Q0M CARLOS 3.54 mls/hr Protocol Titration Per Protocol Fentanyl 1,000 mcg in 100 mls @ 0 mls/hr 07/20/25 12:30 07/20/25 14:02 Sublimaze IV 50 mcg/hr .Q0M CARLOS 5 mls/hr Protocol Titration Per Protocol Vancomycin HCl 1,500 mg in 300 mls @ 200 mls/hr 07/20/25 13:30 07/20/25 13:48 Vancocin IV 07/20/25 14:59 200 mls/hr ONCE ONE Administration Pantoprazole Sodium 40 mg 07/20/25 12:30 07/20/25 13:48 Pantoprazole 40 Mg Sdv IVP 40 mg Q24H CARLOS Administration PFSH Acute PFSH: Medical History (Updated 07/20/25 @ 12:09 by Estephanie Molina MD) Malignant hypertension ESRD (end stage renal disease) Hyperlipemia, mixed Acute renal failure Acute kidney injury superimposed on CKD Acute hyponatremia Hyponatremia Anemia Hypervolemia Tobacco abuse Diabetes Social History Smoking and tobacco/nicotine status: current every day tobacco/nicotine user cigarettes Alcohol intake: former Substance/Drug Use: former Vitals/I&O/Wt Last Vital Signs Pulse 75 07/20/25 14:35 Resp 14 07/20/25 14:35 BP 171/83 07/20/25 14:35 Pulse Ox 100 07/20/25 14:35 O2 Del Method Mechanical Ventilation 07/20/25 12:40 FiO2 30 07/20/25 13:52 07/19/25 07/20/25 07/20/25 22:59 06:59 14:59 Intake Total 822.839 / 822.839 Balance 822.839 / 822.839 Weight last 48 hrs Weight 58.967 kg Physical Exam Narrative: intubated , sedated PEERLA + JVD S1S2 RRR LUngs with juan crackles Abd = soft ,non tender No edema skin - no rash Urinary Catheter Management: Ramos: Cath Placed During This Visit: yes Urinary Catheter Date of Insertion: 07/20/25 Urinary Catheter Time of Insertion: 10:00 Data 07/20/25 09:08 07/20/25 09:08 Micro: Microbiology 07/20/25 11:24 Blood Culture - Preliminary Blood SPECIMEN COLLECTED 07/20/25 09:08 Blood Culture - Preliminary Blood SPECIMEN COLLECTED A&P Assessment and plan 1. End stage renal disease on dialysis: Plan: 1. End-stage renal disease: MWF schedule as outpatient, hemodialysis today and ultrafiltration of 3 L as tolerated 2. Angioedema, management per primary team status post steroids and Benadryl 3. Acute respiratory failure, possible aspiration pneumonia and fluid overload, HD as above 4. Sepsis secondary to UTI and pneumonia 5. Acute encephalopathy multifactorial Patient evaluated using audiovisual cart time. Time spent 40 minutes PDMP PDMP Reviewed: Not Reviewed Coding Level of Care Code Acute Code for Chg Fwd Diagnoses End stage renal disease on dialysis N18.6; Z99.2
[2025-07-20] MEDS: nicardipine 20 MG/200 ML PREMIX 50 MG IV (15:57)
--- NOTE | 2025-07-20 16:01 | PC.NURSE ---
94 mL of versed wasted with ZHANE Curiel.
--- NOTE | 2025-07-20 17:05 | PC.NURSE ---
PO/OG meds late due to no OG or NG tube. Dr. Valdes ordered OG tube, awaiting verification via xray.
--- NOTE | 2025-07-20 17:06 | XRR_ITS ---
PROCEDURE INFORMATION: Exam: XR Chest Exam date and time: 07/20/2025 5:21 PM Age: 55 years old Clinical indication: Device placement; Ng tube; Additional info: Og tube placement TECHNIQUE: Imaging protocol: Radiologic exam of the chest. Views: 1 view. COMPARISON: CT chest abdpel [id number] 07/20/2025 2:18 PM FINDINGS: Tubes, catheters and devices: ETT approximately 2 cm above kalani. NG tube in the left upper quadrant of the abdomen in the expected region of the gastric body. Apparent contrast outlining adjacent gastric rugae. Lungs: A few scattered nonspecific although chronic appearing pulmonary strands. Pleural spaces: Unremarkable. No pleural effusion. No pneumothorax. Heart/Mediastinum: Unremarkable. No cardiomegaly. Bones/joints: Unremarkable. Soft tissues: Right chest tunneled line. Right arm PICC. XR/XR chest 1V portable [id number] IMPRESSION: NG tube in the left upper quadrant of the abdomen in the expected region of the gastric body. Apparent contrast outlining adjacent gastric rugae.
[2025-07-20] MEDS: norepinephrine 4 MG/250 ML BAG 7.5 MG IV (19:26)
[2025-07-20] MEDS: heparin, porcine 1,000 unit/mL INJ 10 mL 10000 UNIT HE (19:39)
[2025-07-20] MEDS: heparin, porcine 1,000 unit/mL INJ 10 mL 10000 UNIT INTRACATH (19:40)
[2025-07-20 21:35] LABS: Hepatitis B Surface Antigen Non-Reactive (Nonreactive)
[2025-07-20] MEDS: methylPREDNISolone sod succ 40 mg/mL INJ IVP (21:37)
[2025-07-20] MEDS: ATORVASTATIN 10 MG TABLET PO (21:37)
[2025-07-21] VITALS (56 sets, daily range): BP systolic 133–158; BP diastolic 72–87; PULSE 65–95; RESP 10–14; TEMP 36.2–37.1; O2SAT 88–100
[2025-07-21 05:09] LABS: ABG PCO2 26.5 mmHg (35-45); Arterial Blood Gas Hematocrit 36.3 % (42-52); Blood Gas Operator Identificat SAM; Blood Gas Sample Site Brachial, right; Blood Gas Sample Type Arterial; Blood Gas Tidal Volume 0.48; HCO3 ABG 26.2 mmol/L (22-26); PEEP 5.0 cmH20; PO2 ABG 120.0 mmHg (80.0-100.0); PO2 FiO2 Ratio Arterial Blood 400
[2025-07-21 05:11] LABS: ABG PH Result 7.60 (7.35-7.45)
[2025-07-21] MEDS: propofol 1,000 MG/100 ML INJ 7.08 MG IV (05:15)
[2025-07-21 05:21] LABS: Hematocrit 29.2 % (37-53); Hemoglobin 9.90 g/dL (11.27-16.99); Mean Corpuscular HGB Conc 33.9 g/dL (30-55); Mean Corpuscular Hemoglobin 30.2 pg (27-33); Mean Corpuscular Volume 89.0 fl (82-101); Nucleated Red Blood Cells % 0 %; Platelet Count 299 10^3/cmm (157-399); Red Blood Count 3.28 10^6/uL (3.85-5.65); White Blood Count 6.34 10^3/uL (3.29-11.43)
[2025-07-21] MEDS: methylPREDNISolone sod succ 40 mg/mL INJ IVP ×3 (05:34→22:01)
[2025-07-21] MEDS: fentaNYL 1,000 MCG/100 ML BAG 5 MCG IV (05:37)
[2025-07-21 05:49] LABS: Lactate (Lactic Acid level) 1.2 mmol/L (0.5-2.2)
[2025-07-21 05:52] LABS: Alanine Aminotransferase 16 U/L (0-41); Albumin Level 3.5 g/dL (3.5-5.2); Alkaline Phosphatase 101 U/L (40-130); Anion Gap 23.0 (5-19); Aspartate Amino Transferase 28 U/L (0-40); Blood Urea Nitrogen 41 mg/dL (6-20); Calcium 9.0 mg/dL (8.5-10.5); Carbon Dioxide 22 mmol/L (22-29); Chloride 95 mmol/L (98-107); Globulin 3.1 g/dL (1.3-4.6); Glucose 111 mg/dL (65-115); Magnesium 1.9 mg/dL (1.7-2.3); Osmolality Calculated 293 mOsm/kg (285-295); Potassium 4.0 mmol/L (3.5-5.1); Sodium 136 mmol/L (136-145); Total Protein 6.6 g/dL (6.6-8.7)
[2025-07-21 06:33] LABS: Procalcitonin 0.36 ng/mL (0-0.5)
[2025-07-21 06:55] LABS: NT Pro B Type Natriuretic Pept 37065 pg/mL (0-125)
--- NOTE | 2025-07-21 07:00 | XRR_ITS ---
PROCEDURE INFORMATION: Exam: XR Chest Exam date and time: 07/21/2025 7:09 AM Age: 55 years old Clinical indication: Shortness of breath; Additional info: SOB TECHNIQUE: Imaging protocol: Radiologic exam of the chest. Views: 1 view. COMPARISON: CR (CHEST, ) 07/20/2025 5:21 PM FINDINGS: Tubes, catheters and devices: Endotracheal tube is present with its tip 3 cm above the kalani. Nasogastric tube is present with its tip overlying the left upper quadrant. The proximal side-hole is at the level of the GE junction. Recommend advancement by 5-6 cm. PICC line is seen on the right with its tip overlying the SVC. Central venous catheter seen on the right with tips overlying the SVC. Lungs: There is linear scarring involving the left lower lung. The lungs are hyperinflated. No consolidated infiltrates are appreciated. Pleural spaces: Unremarkable. No pleural effusion. No pneumothorax. Heart/Mediastinum: The heart is borderline enlarged. Bones/joints: Unremarkable. XR/XR chest 1V portable [id number] IMPRESSION: 1. Lines and tubes as above. 2. Lung hyperinflation with what appears to be linear scarring at the left lung base.
--- NOTE | 2025-07-21 09:23 | PICC.NOTE ---
Dressing changed to right upper arm PICC. Excessive bleeding and clotting noted at insertion site. Site cleaned with CHG and Biopatch applied. Secured with Sorbaview shield. Pressure held for approx 3 minutes. Pressure dressing applied. Slight bleeding noted under Biopatch. Will continue to monitor.
--- NOTE | 2025-07-21 10:41 | PM.CONSULT ---
Providers/Reason For Consult Consulting Physician/Specialty*: Dr Earlene Diez Reason for Consult*: Angioedema intubated Attending Physician: Enrique Valdes MD Primary Care Provider: Valente Harding DO History of Present Illness History of Present Illness Tyrese Leach is a 55 year old male with past medical history of end-stage renal disease on dialysis, type 1 diabetes, hypertension comes to ER with somnolence and confusion. He was noted to have swelling of the mouth and tongue intubated for worsening angioedema. He had recently started taking lisinopril at an increased dose per report Currently on propofol drip tolerating low ventilator settings well. Started on Solu-Medrol Pepcid and Zyrtec also was given FFP and TXA lisinopril on hold. Due to a clear picture of whether this is sepsis due to urinary tract infection versus pneumonia vancomycin and meropenem was started. Also placed on Cardene drip for hypertensive urgency Review of systems-unable to obtain on vent Medications/Allergies Home Medications ?Medication ?Instructions ?Recorded ?Confirmed ?Last Taken ?Type amlodipine 10 mg tablet 10 mg PO DAILY@03/30/23 07/20/25 07/19/25 09:00 History multivitamin with folic acid 400 1 tab PO DAILY@03/30/23 07/20/25 06/15/25 History mcg tablet (Daily-Sean (with folic acid)) acetaminophen 325 mg tablet 650 mg PO QID PRN Pain 09/04/24 07/20/25 07/13/25 History (Tylenol) ondansetron 4 mg disintegrating 4 mg PO Q6H PRN nausea and 02/11/25 07/20/25 Unknown Rx tablet vomiting #10 tabs mupirocin 2 % topical ointment 1 applic topical BID #15 grams 03/26/25 07/20/25 06/15/25 Rx Wheelchair pad #1 ea 04/28/25 07/20/25 Unknown Rx trazodone 100 mg tablet 300 mg PO QPM 04/28/25 07/20/25 07/18/25 20:00 History gabapentin 300 mg capsule 300 mg PO TID #90 caps 05/23/25 07/20/25 07/19/25 13:00 Rx dextrose 40 % oral gel (Glucose 15 g PO Q15M PRN low bs 05/28/25 07/20/25 Unknown History Gel) lidocaine 5 % topical patch 1 patch topical DAILY 05/28/25 07/20/25 07/17/25 History lurasidone 120 mg tablet 60 mg PO BID 05/28/25 07/20/25 07/19/25 08:00 History polyethylene glycol 3350 17 gram 17 g PO DAILY 05/28/25 07/20/25 06/15/25 History oral powder packet (Miralax) loperamide 2 mg tablet See Rx Instructions .Route 06/09/25 07/20/25 Unknown Rx (Anti-Diarrheal (loperamide)) .COMPLEX #30 ea aripiprazole 15 mg tablet See Rx Instructions .Route 06/16/25 07/20/25 07/19/25 08:00 Rx .COMPLEX #90 tabs carvedilol 12.5 mg tablet See Rx Instructions .Route 06/16/25 07/20/25 07/19/25 08:00 Rx .COMPLEX #60 tabs isosorbide mononitrate 60 mg See Rx Instructions .Route 06/17/25 07/20/25 07/19/25 08:00 Rx tablet,extended release 24 hr .COMPLEX #30 tabs insulin lispro 100 unit/mL See Rx Instructions SUBCUT TID #15 06/24/25 07/20/25 Unknown Rx subcutaneous pen (Humalog KwikPen mL (U-100) Insulin) aspirin 325 mg tablet,delayed See Rx Instructions .Route 06/26/25 07/20/25 07/19/25 08:00 Rx release .COMPLEX #30 ea benztropine 1 mg tablet See Rx Instructions .Route 06/26/25 07/20/25 07/19/25 08:00 Rx .COMPLEX #180 tabs famotidine 20 mg tablet See Rx Instructions .Route 06/26/25 07/20/25 07/19/25 08:00 Rx .COMPLEX #60 tabs lisinopril 40 mg tablet See Rx Instructions .Route 06/26/25 07/20/25 07/18/25 20:00 Rx .COMPLEX #30 tabs blood glucose control, normal #1 ea 07/01/25 07/20/25 Unknown Rx (True Metrix Level 2 solution) blood sugar diagnostic (Blood #200 ea 07/01/25 07/20/25 Unknown Rx Glucose Test strips) cetirizine 10 mg tablet See Rx Instructions .Route 07/01/25 07/20/25 07/18/25 20:00 Rx .COMPLEX #90 tabs clonazepam 0.5 mg tablet 0.5 mg PO .COMPLEX #12 tabs 07/01/25 07/20/25 07/17/25 08:00 Rx lancets #200 ea 07/01/25 07/20/25 Unknown Rx pen needle, diabetic 31 gauge x #100 ea 07/01/25 07/20/25 Unknown Rx 5/16 (Pen Needle) starch (thickening) (Thick-It oral See Rx Instructions .Route 07/01/25 07/20/25 07/19/25 08:00 Rx powder) .COMPLEX #1,020 grams WHEELCHAIR WITH SEAT BELT AND #1 ea 07/15/25 07/20/25 Unknown Rx HARNESS baclofen 10 mg tablet 10 mg PO TID PRN muscle spasm 30 07/15/25 07/20/25 07/18/25 18:00 Rx days #90 tabs hydrocodone 7.5 mg-acetaminophen 1 tab PO Q6H PRN pain 30 days #120 07/15/25 07/20/25 07/19/25 08:00 Rx 325 mg tablet tabs naloxone 4 mg/actuation nasal 1 spray intranasal Q3M #2 ea 07/15/25 07/20/25 Unknown Rx spray (Narcan) atorvastatin 10 mg tablet 10 mg PO BEDTIME 07/20/25 07/20/25 07/18/25 20:00 History escitalopram oxalate 10 mg tablet 15 mg PO DAILY 07/20/25 07/20/25 07/19/25 08:00 History fenofibrate 160 mg tablet 160 mg PO DAILY 07/20/25 07/20/25 07/19/25 08:00 History nut.tx.gluc.intol,lac-free,soy 1 ea PO PRN PRN REFUSING MEALS 07/20/25 07/20/25 07/19/25 History (Glucerna oral liquid) vit A 600 mcg-vit D3 50 mcg-vit E 1 cap PO DAILY 07/20/25 07/20/25 07/19/25 08:00 History 101 mg-vit K1 1,000 mcg capsule (DEKAs Essential) Allergies Allergy/AdvReac Type Severity Reaction Status Date / Time No Known Allergies Allergy Verified 06/25/25 13:13 Current Medications Generic Name Dose Route Start Last Admin Trade Name Cindy PRN Reason Stop Dose Admin Albuterol/Ipratropium 3 ml 07/20/25 20:00 07/21/25 08:33 Ipratropium-Albuterol 3 Ml Neb INHALATION 3 ml Q4H.RESPIRATORY CAROLS Administration Aripiprazole 15 mg 07/21/25 05:00 07/21/25 05:34 Aripiprazole 10 Mg Tablet PO 15 mg DAILY CARLOS Administration Aspirin 325 mg 07/21/25 05:00 07/21/25 05:33 Aspirin 325 Mg Ec Tablet PO 325 mg DAILY CARLOS Administration Atorvastatin Calcium 10 mg 07/20/25 21:00 07/20/25 21:37 Atorvastatin 10 Mg Tablet PO 10 mg BEDTIME CARLOS Administration Benztropine Mesylate 1 mg 07/20/25 17:00 07/21/25 05:34 Benztropine 1 Mg Tablet PO 1 mg BID CARLOS Administration Budesonide 0.5 mg 07/20/25 20:00 07/21/25 08:33 Budesonide 0.5 Mg/2 Ml Neb INHALATION 0.5 mg BID.RESPIRATORY CARLOS Administration Cetirizine HCl 10 mg 07/20/25 16:15 07/21/25 05:33 Cetirizine 10 Mg Tablet PO 10 mg DAILY CARLOS Administration Escitalopram Oxalate 15 mg 07/21/25 05:00 07/21/25 05:35 Escitalopram 10 Mg Tablet PO 15 mg DAILY CARLOS Administration Famotidine 20 mg 07/20/25 16:15 07/21/25 05:34 Famotidine 20 Mg/2 Ml Inj IVP 20 mg Q12H CARLOS Administration Fenofibrate 145 mg 07/21/25 05:00 07/21/25 05:33 Fenofibrate 145 Mg Tablet PO 145 mg DAILY CARLOS Administration Heparin Sodium (Porcine) 5,000 unit 07/20/25 12:30 07/20/25 23:50 Heparin 5,000 Unit/Ml Inj 1 Ml SUBCUT 5,000 unit Q12H CARLOS Administration Propofol 1,000 mg in 100 mls @ 0 mls/hr 07/20/25 12:30 07/21/25 05:49 Diprivan IV 25 mcg/kg/min .Q0M CARLOS 8.85 mls/hr Protocol Titration Per Protocol Fentanyl 1,000 mcg in 100 mls @ 0 mls/hr 07/20/25 12:30 07/21/25 05:49 Sublimaze IV 75 mcg/hr .Q0M CARLOS 7.5 mls/hr Protocol Titration Per Protocol Albumin Human 12.5 gm in 50 mls @ 60 mls/hr 07/20/25 14:51 07/20/25 20:16 Albumin IV Infused PRN PRN Infusion Hypotension and/or symptomatic Nicardipine/Sodium Chloride 20 mg in 200 mls @ 0 mls/hr 07/20/25 15:45 07/20/25 18:36 Cardene IV 0 mg/hr On Hold: 07/20/25 19:23 .Q0M CARLOS 0 mls/hr Protocol Titration Per Protocol Norepinephrine Bitartrate 4 mg in 250 mls @ 0 mls/hr 07/20/25 19:30 07/20/25 23:03 Levophed IV 0 mcg/min .Q0M CARLOS 0 mls/hr Protocol Titration Per Protocol Insulin Human Lispro 0 unit 07/20/25 18:00 07/21/25 09:08 Insulin Lispro 100 Unit/1 Ml SUBCUT Not Given TIDWM CARLOS Protocol Lurasidone HCl 60 mg 07/20/25 17:00 07/21/25 05:33 Lurasidone 20 Mg Tablet PO 60 mg BID CARLOS Administration Meropenem 500 mg 07/20/25 23:00 07/20/25 23:49 Meropenem 500 Mg Sdv IVP 500 mg Q12H CARLOS Administration Protocol Methylprednisolone Sodium Succinate 40 mg 07/20/25 21:00 07/21/25 05:34 Methylprednisolone Sod Succ 40 Mg/Ml Inj IVP 40 mg Q8H CARLOS Administration Trazodone HCl 300 mg 07/20/25 17:00 07/20/25 18:41 Trazodone 100 Mg Tablet PO 300 mg QPM CARLOS Administration PFSH Acute PFSH: Medical History Malignant hypertension ESRD (end stage renal disease) Hyperlipemia, mixed Acute renal failure Acute kidney injury superimposed on CKD Acute hyponatremia Hyponatremia Anemia Hypervolemia Tobacco abuse Diabetes Social History Smoking and tobacco/nicotine status: current every day tobacco/nicotine user cigarettes Alcohol intake: former Substance/Drug Use: former Vitals/I&O/Wt Last Vital Signs Temp 98.8 F 07/21/25 04:00 Pulse 81 07/21/25 10:00 Resp 10 L 07/21/25 10:00 BP 147/79 07/21/25 10:00 Pulse Ox 100 07/21/25 10:00 O2 Del Method Mechanical Ventilation 07/21/25 08:00 FiO2 30 07/21/25 10:00 07/20/25 07/21/25 07/21/25 22:59 06:59 14:59 Intake Total 1769.748 / 2592.587 184.309 / 2776.896 Output Total 4476 / 4476 Balance -2706.252 / -1883.413 184.309 / -1699.104 Weight last 48 hrs Weight 119 lb 0.794 oz Weight 129 lb 3.054 oz Weight 130 lb Weight 130 lb Physical Exam Narrative: per RN General: Intubated sedated HEENT: conj clear, EOMI, PERRL tongue swelling noted Neck: supple Pulmonary: CTAB. Cardiovascular: rrr, nl s1s2, no mrg Abdomen: soft, nt, nd, no r/g, Extremities: pulses +, no edema Neurologic: grossly intact Agree with above exam Urinary Catheter Management: Ramos: Cath Placed During This Visit: yes Reason for Continuing Indwelling Catheter: Accurate Measurement of Urinary Output in Critically Ill Patients Urinary Catheter Date of Insertion: 07/20/25 Urinary Catheter Time of Insertion: 10:00 Data 07/21/25 04:00 07/21/25 04:00 Micro: Microbiology 07/20/25 14:04 Gram Stain - Final Sputum - Endotracheal Tube Aspirate 07/20/25 11:24 Blood Culture - Preliminary Blood SPECIMEN COLLECTED 07/20/25 09:08 Blood Culture - Preliminary Blood SPECIMEN COLLECTED A&P Assessment and plan 1. Respiratory failure: 2. Angioedema: Plan: # Angioedema secondary to increased lisinopril dose Patient's presentation is secondary to lisinopril induced airway edema. He was a difficult intubation. Currently tolerating ventilator well. Weak cough leak noted today. On Pepcid Zyrtec and Solu-Medrol to be continued. Will add Benadryl # Intubated for airway protection/critical airway - Currently on low vent settings, will continue to monitor closely. Discussed case with RT will monitor with complete checks daily. Getting as needed DuoNebs. # Probable sepsis due to UTI or pneumonia Reviewed chest x-ray showing lung hyperinflation some scarring at the left base no clear infiltrates noted. Also reviewed CT scan from 07/20/2025-small areas of bilateral dependent pneumonitis possible atelectasis otherwise grossly unremarkable. Labs show a white count of 6.3 interestingly his BNP is more than 70,000 unclear etiology. Cultures so far are only showing gram-negative rods in urine. # Probable congestive heart failure Patient's EF was 55% back in December with moderately severe left ventricular hypertrophy. I reviewed the echocardiogram results. BNP is elevated at 70,000. EKG reviewed from 07/19/2025 showing left axis deviation. Does not appear to be volume overloaded currently on his chest x-ray also getting scheduled hemodialysis from nephrology. # Aspiration pneumonia Unclear whether truly patient has aspiration pneumonia. May stop antibiotics tomorrow if cultures are negative other than for his UTI # Acute encephalopathy Continue to wean sedation and do sedation vacation and neurochecks. # Hypertensive urgency Continue Cardene drip. Maintain systolic blood pressure less than 160 and diastolic less than 110 # Type 1 diabetes Insulin sliding scale moderate. Appreciate nephrology help. # End-stage renal disease on HD MWF schedule # DVT GI prophylaxis with famotidine and Lovenox # Full code # Goals of care no family at bedside The high probability of a clinically significant, sudden or life threatening deterioration of the patient's [Respiratory, cardiac and renal] system(s) required my full and direct attention, intervention and personal management. The critical care time is as shown. This time is in addition to time spent performing any reported procedures but includes the following: [x] Data and vital sign review and interpretation [x] Patient assessment, examination and intervention [x] Documentation [x] Medication orders and management Critical Care Time (min): 45 Telemedicine Consent Patient seen today via Telemedicine by agreement and consent of patient.? Telemedicine technology used during the visit includes audio and, as available, review of images.? The patient encounter is appropriate and reasonable under the circumstances given the patient?s particular presentation at this time.? The patient has been advised of the potential risks and limitations of this mode of treatment (including but not limited to the absence of in-person examination) and has agreed to be treated in a remote fashion in spite of them.? Any, and all, of the patient?s/patient?s family?s questions on this issue have been answered and I have made no promises or guarantees to the patient. The patient has also been advised to contact this office for worsening conditions or problems, and seek emergency medical treatment and/or call 911 if the patient deems either necessary PDMP PDMP Reviewed: Not Reviewed Coding Level of Care Code Critical Care >/= 30 minutes Diagnoses Respiratory failure J96.90 Angioedema T78.3XXA
[2025-07-21] MEDS: heparin 5,000 unit/mL INJ 1 mL 5000 UNIT SUBCUT (11:30)
[2025-07-21] MEDS: vancomycin 500 MG in sodium chloride 0.9% (plus) 100 ML 200 MG IV (12:21)
--- NOTE | 2025-07-21 14:14 | PM.PN ---
Subjective Subjective: remains on ventilator Medications: Reviewed: Yes Vitals/I&O/Wt Last Vital Signs Temp 98.8 F 07/21/25 04:00 Pulse 80 07/21/25 12:30 Resp 10 L 07/21/25 13:25 BP 138/77 07/21/25 12:30 Pulse Ox 100 07/21/25 13:25 O2 Del Method Mechanical Ventilation 07/21/25 11:21 FiO2 30 07/21/25 13:25 07/20/25 07/21/25 07/21/25 22:59 06:59 14:59 Intake Total 1769.748 / 2592.587 184.309 / 2776.896 Output Total 4476 / 4476 Balance -2706.252 / -1883.413 184.309 / -1699.104 Weight last 48 hrs Weight 54 kg Weight 58.6 kg Weight 58.967 kg Weight 58.967 kg Physical Exam Narrative: intubated , sedated PEERLA + JVD S1S2 RRR LUngs with juan crackles Abd = soft ,non tender No edema skin - no rash Urinary Catheter Management: Ramos: Cath Placed During This Visit: yes Reason for Continuing Indwelling Catheter: Accurate Measurement of Urinary Output in Critically Ill Patients Urinary Catheter Date of Insertion: 07/20/25 Urinary Catheter Time of Insertion: 10:00 Data 07/21/25 04:00 07/21/25 04:00 Micro: Microbiology 07/20/25 14:04 Gram Stain - Final Sputum - Endotracheal Tube Aspirate Sputum Culture - Preliminary 07/20/25 11:24 Blood Culture - Preliminary Blood NEGATIVE TO DATE 07/20/25 10:01 Urine Culture - Preliminary Urine,Clean Catch Gram Negative Rods 07/20/25 09:08 Blood Culture - Preliminary Blood NEGATIVE TO DATE A&P Assessment and plan 1. End stage renal disease on dialysis: Plan: 1. End-stage renal disease: MWF schedule as outpatient, HD done yesterday with 4L UF Next HD in Am 2. Angioedema, management per primary team status post steroids and Benadryl 3. Acute respiratory failure, possible aspiration pneumonia and fluid overload, HD as above 4. Sepsis secondary to UTI and pneumonia 5. Acute encephalopathy multifactorial Patient evaluated using audiovisual cart time. Time spent 40 minutes PDMP PDMP Reviewed: Not Reviewed Attestations Medical Necessity Statement*: per [facility] Coding Level of Care Code Acute Code for Chg Fwd Diagnoses End stage renal disease on dialysis N18.6; Z99.2
[2025-07-21] MEDS: propofol 1,000 MG/100 ML INJ 8.85 MG IV (14:35)
[2025-07-21] MEDS: diphenhydrAMINE 50 mg/mL SDV 1mL IVP (17:40)
[2025-07-21] MEDS: fentaNYL 1,000 MCG/100 ML BAG 7.5 MCG IV (17:46)
--- NOTE | 2025-07-21 19:38 | P.PN_ITS ---
Subjective 2 Subjective: Patient was seen this morning, intubated, sedated on mechanical ventilation patient did require pressors during the night currently off pressors, 35% FiO2, afebrile Vitals/I&O/Wt Last Vital Signs Temp 98.8 F 07/21/25 04:00 Pulse 72 07/21/25 17:30 Resp 10 L 07/21/25 18:01 BP 152/84 07/21/25 17:30 Pulse Ox 100 07/21/25 18:01 O2 Del Method Mechanical Ventilation 07/21/25 15:50 FiO2 30 07/21/25 18:01 07/21/25 07/21/25 07/21/25 06:59 14:59 22:59 Intake Total 184.309 / 2776.896 77.585 / 77.585 89.625 / 167.210 Balance 184.309 / -1699.104 77.585 / 77.585 89.625 / 167.210 Weight last 48 hrs Weight 54 kg Weight 58.6 kg Weight 58.967 kg Weight 58.967 kg Physical Exam 2 Const: COMMON NORMALS: no acute distress ORIENTATION/CONSCIOUSNESS: not awake OTHER: Intubated, sedated on mechanical ventilation Eye: OTHER: Pupils minimally reactive to light Resp: COMMON NORMALS: normal respiratory effort, No retractions and No use of accessory muscles AUSCULTATION: crackles and wheezes Cardio: COMMON NORMALS: regular rate, regular rhythm, S1 normal heart sound present and S2 normal heart sound present RATE: regular rate RHYTHM: r egular rhythm HEART SOUNDS: S1 normal heart sound present and S2 normal heart sound present GI: COMMON NORMALS: Normal to inspection, nondistended, normoactive bowel sounds present and non-tender Extremity: COMMON NORMALS: no pedal edema Urinary Catheter Management: Ramos: Cath Placed During This Visit: yes Reason for Continuing Indwelling Catheter: Accurate Measurement of Urinary Output in Critically Ill Patients Urinary Catheter Date of Insertion: 07/20/25 Urinary Catheter Time of Insertion: 10:00 Data 07/21/25 04:00 07/21/25 04:00 Micro: Microbiology 07/20/25 14:04 Gram Stain - Final Sputum - Endotracheal Tube Aspirate Sputum Culture - Preliminary 07/20/25 11:24 Blood Culture - Preliminary Blood NEGATIVE TO DATE 07/20/25 10:01 Urine Culture - Preliminary Urine,Clean Catch Gram Negative Rods 07/20/25 09:08 Blood Culture - Preliminary Blood NEGATIVE TO DATE A&P Assessment and plan 1. End stage renal disease on dialysis: 2. Angioedema: 3. Acute hypoxic respiratory failure: 4. Sepsis: 5. ARDS (adult respiratory distress syndrome): 6. Aspiration pneumonia: Plan: Angioedema/allergic reaction - Etiology unclear question, adverse reaction to baclofen which is new medication that he has been on, he is on lisinopril - Found to have difficult airway, diffuse edema of the airway, vocal cords, difficulty with bougie passing through vocal cords - Status post FFP, Pepcid, Benadryl, Solu-Medrol - On examination swelling around the mouth, lips, tongue has improved Plan -Continue to monitor - Continue Solu-Medrol, Pepcid, Zyrtec - Will consider further doses of FFP/TXA - Hold lisinopril Acute hypoxic respiratory failure - Aspiration pneumonia, history of recurrent aspiration - Aspiration pneumonitis - Acute flash pulmonary edema - Angioedema Plan - Currently intubated, sedated on mechanical ventilation -Sedation vacation - Propofol for sedation - Fentanyl for pain control sedation -Nephrology consulted for dialysis, status post dialysis - Vancomycin - Meropenem - Solu-Medrol 40 mg IV every 8 hours -DuoNeb, budesonide - PICC line placed Sepsis -With septic shock, currently resolved, off Levophed - Secondary to UTI, pneumonia urinary tract infection -History of ESBL UTI - Antibiotics as above Acute encephalopathy -Secondary to UTI, pneumonia, sepsis Type 1 diabetes mellitus - Moderate dose sliding scale Hypertensive urgency resolved - Cardene drip Full code Pepcid for GI prophylaxis Heparin for DVT prophylaxis Plan on monitoring blood sugars, consult pulmonary, minimize sedation, sedation vacation, spontaneous breathing trial, IV antibiotics, IV steroids PDMP PDMP Reviewed: Not Reviewed Attestations 2 Medical Necessity Statement*: Requires hospitalization, inpatient, greater than 2 midnights, for sepsis, UTI, aspiration pneumonia, respiratory failure, fluid overload Coding Level of Care Code Critical Care >/= 30 minutes Critical care time (in minutes): 45 The high probability of a clinically significant, sudden or life threatening deterioration, as referenced in this documentation, required my full and direct attention, intervention and personal management. The critical care time shown is in addition to time spent performing any reported separately billable procedures and includes the following: [x] Data and vital sign review and interpretation [x ] Patient assessment, examination and intervention [x] Medication orders and management [x] Patient/Family updates as able [x] Care Coordination and Documentation. Diagnoses End stage renal disease on dialysis N18.6; Z99.2 Angioedema T78.3XXA Acute hypoxic respiratory failure J96.01 Sepsis A41.9 ARDS (adult respiratory distress syndrome) J80 Aspiration pneumonia J69.0 Sepsis Event Note Evaluation Current stage of sepsis: sepsis Persistent hypotension due to sepsis/infection: SBP < 90 mmHg Focused Exam Vital Signs Pulse Resp BP Pulse Ox O2 Del Method FiO2 07/21/25 18:01 10 L 100 30 07/21/25 17:30 72 152/84 100 07/21/25 17:00 72 147/79 100 07/21/25 16:30 72 133/77 100 07/21/25 16:00 71 146/81 100 07/21/25 16:00 71 07/21/25 15:58 10 L 100 30 07/21/25 15:50 73 10 L 100 Mechanical Ventilation 30 07/21/25 15:30 73 139/77 100 07/21/25 15:00 73 142/77 100 07/21/25 14:30 75 140/78 100 07/21/25 14:00 74 07/21/25 14:00 75 139/76 100 07/21/25 13:30 77 139/78 100 07/21/25 13:25 10 L 100 30 07/21/25 13:00 79 134/76 100 07/21/25 12:30 80 138/77 100 07/21/25 12:00 81 147/80 100 07/21/25 11:30 80 153/82 100 07/21/25 11:21 78 10 L 100 Mechanical Ventilation 30 07/21/25 11:17 10 L 100 30 07/21/25 11:00 79 146/78 100 07/21/25 10:30 81 145/78 100 07/21/25 10:00 81 147/79 100 07/21/25 10:00 10 L 100 30 07/21/25 09:30 82 135/74 100 07/21/25 09:00 81 148/83 88 L 07/21/25 08:39 10 L 100 30 07/21/25 08:30 83 142/79 100 07/21/25 08:00 84 142/79 100 07/21/25 08:00 81 10 L 100 Mechanical Ventilation 30 Respiratory exam: Present wheezes Capillary refill: < 3 Seconds Peripheral pulse strength: 2+ Slightly Diminished Peripheral pulse location: Radial Skin exam: normal turgor Date exam was performed: 07/21/25 Time exam was performed: 19:40 Problem List 1. End stage renal disease on dialysis: Status: Acute 2. Angioedema: Status: Acute 3. Acute hypoxic respiratory failure: Status: Resolved 4. Sepsis: Status: Acute 5. ARDS (adult respiratory distress syndrome): Status: Acute 6. Aspiration pneumonia: Status: Resolved
[2025-07-21] MEDS: ATORVASTATIN 10 MG TABLET PO (22:02)
[2025-07-22] VITALS (65 sets, daily range): BP systolic 84–188; BP diastolic 62–113; PULSE 65–112; RESP 6–20; TEMP 36.2–36.8; O2SAT 93–100
[2025-07-22] MEDS: heparin 5,000 unit/mL INJ 1 mL 5000 UNIT SUBCUT ×3 (01:24→23:40)
[2025-07-22] MEDS: chlorhexidine gluconate 4% Btl 118 mL 1 APPLIC TOPICAL (01:24)
[2025-07-22] MEDS: propofol 1,000 MG/100 ML INJ 8.85 MG IV (02:45)
[2025-07-22 03:03] LABS: ABG PCO2 37.8 mmHg (35-45); ABG PH Result 7.45 (7.35-7.45); Arterial Blood Gas Hematocrit 41.2 % (42-52); Blood Gas Operator Identificat SAM; Blood Gas Sample Site Brachial, right; Blood Gas Sample Type Arterial; Blood Gas Tidal Volume 0.48; HCO3 ABG 26.3 mmol/L (22-26); PEEP 5.0 cmH20; PO2 ABG 123.0 mmHg (80.0-100.0); PO2 FiO2 Ratio Arterial Blood 410
[2025-07-22 04:12] LABS: Hematocrit 30.8 % (37-53); Hemoglobin 10.10 g/dL (11.27-16.99); Mean Corpuscular HGB Conc 32.8 g/dL (30-55); Mean Corpuscular Hemoglobin 29.5 pg (27-33); Mean Corpuscular Volume 90.1 fl (82-101); Nucleated Red Blood Cells % 0 %; Platelet Count 276 10^3/cmm (157-399); Red Blood Count 3.42 10^6/uL (3.85-5.65); White Blood Count 6.62 10^3/uL (3.29-11.43)
[2025-07-22 05:32] LABS: Lactate (Lactic Acid level) 0.7 mmol/L (0.5-2.2)
[2025-07-22] MEDS: diphenhydrAMINE 50 mg/mL SDV 1mL IVP ×2 (05:36→18:50)
[2025-07-22] MEDS: methylPREDNISolone sod succ 40 mg/mL INJ IVP ×3 (05:36→21:07)
[2025-07-22 06:16] LABS: Procalcitonin 0.37 ng/mL (0-0.5)
[2025-07-22 06:29] LABS: Alanine Aminotransferase 16 U/L (0-41); Albumin Level 3.4 g/dL (3.5-5.2); Alkaline Phosphatase 97 U/L (40-130); Anion Gap 21.8 (5-19); Aspartate Amino Transferase 25 U/L (0-40); Blood Urea Nitrogen 60 mg/dL (6-20); Calcium 8.6 mg/dL (8.5-10.5); Carbon Dioxide 23 mmol/L (22-29); Chloride 96 mmol/L (98-107); Globulin 3.0 g/dL (1.3-4.6); Glucose 116 mg/dL (65-115); Magnesium 2.0 mg/dL (1.7-2.3); Osmolality Calculated 300 mOsm/kg (285-295); Potassium 4.8 mmol/L (3.5-5.1); Sodium 136 mmol/L (136-145); Total Protein 6.4 g/dL (6.6-8.7)
[2025-07-22] MEDS: fentaNYL 1,000 MCG/100 ML BAG 7.5 MCG IV (06:55)
--- NOTE | 2025-07-22 07:00 | XRR_ITS ---
PROCEDURE INFORMATION: Exam: XR Chest Exam date and time: 07/22/2025 6:04 AM Age: 55 years old Clinical indication: Shortness of breath; Prior surgery; Surgery date: 6+ months; Surgery type: Dialysis cath; Additional info: SOB TECHNIQUE: Imaging protocol: Radiologic exam of the chest. Views: 1 view. COMPARISON: CR XR chest 1V portable [id number] 07/21/2025 7:09 AM FINDINGS: Lungs: Unchanged atelectasis and/or infiltrate in the left lower lobe. Pleural spaces: Unremarkable. No pleural effusion. No pneumothorax. Heart/Mediastinum: No change in the heart or mediastinum. Bones/joints: Unremarkable. Other findings: Stable life-support lines. This includes a gastric tube with the side port at the EG junction. XR/XR chest 1V portable [id number] IMPRESSION: No significant change.
[2025-07-22] MEDS: heparin, porcine 1,000 unit/mL INJ 10 mL 1000 UNIT IV (11:15)
[2025-07-22] MEDS: heparin, porcine 1,000 unit/mL INJ 10 mL 10000 UNIT INTRACATH (11:57)
[2025-07-22] MEDS: glycopyrrolate 0.2 mg/mL SDV 2 mL 0.1 MG IV (12:42)
--- NOTE | 2025-07-22 12:54 | P.PN_ITS ---
Subjective 2 Subjective: Tyrese Leach is a 55 year old male with past medical history of end-stage renal disease on dialysis, type 1 diabetes, hypertension comes to ER with somnolence and confusion. He was noted to have swelling of the mouth and tongue intubated for worsening angioedema. He had recently started taking lisinopril at an increased dose per report Currently on propofol drip tolerating low ventilator settings well. Started on Solu-Medrol Pepcid and Zyrtec also was given FFP and TXA lisinopril on hold. Due to a clear picture of whether this is sepsis due to urinary tract infection versus pneumonia vancomycin and meropenem was started. Also placed on Cardene drip for hypertensive urgency 07/22/25: Has mental disability and does not communicate at baseline. Has a great cuff leak today but having oral and ett secretions. Has been intubated twice this year already and has aspiration risk Review of systems-unable to obtain on vent Vitals/I&O/Wt Last Vital Signs Temp 98.1 F 07/22/25 11:52 Pulse 88 07/22/25 11:52 Resp 10 L 07/22/25 11:52 BP 143/112 07/22/25 11:52 Pulse Ox 100 07/22/25 11:18 O2 Del Method Mechanical Ventilation 07/22/25 11:18 FiO2 30 07/22/25 11:18 07/21/25 07/22/25 07/22/25 22:59 06:59 14:59 Intake Total 119.625 / 197.210 200 / 397.210 52.187 / 52.187 Output Total 150 / 150 Balance 119.625 / 197.210 50 / 247.210 52.187 / 52.187 Weight last 48 hrs Weight 122 lb 5.705 oz Weight 119 lb 0.794 oz Weight 129 lb 3.054 oz Weight 130 lb Physical Exam 2 Narrative: per RN General: Intubated sedated HEENT: conj clear, EOMI, PERRL tongue less Neck: supple Pulmonary: CTAB. Cardiovascular: rrr, nl s1s2, no mrg Abdomen: soft, nt, nd, no r/g, Extremities: pulses +, no edema Neurologic: grossly intact Agree with above exam Urinary Catheter Management: Ramos: Cath Placed During This Visit: yes Reason for Continuing Indwelling Catheter: Accurate Measurement of Urinary Output in Critically Ill Patients Urinary Catheter Date of Insertion: 07/20/25 Urinary Catheter Time of Insertion: 10:00 Data 07/22/25 03:56 07/22/25 05:43 Micro: Microbiology 07/20/25 14:04 Gram Stain - Final Sputum - Endotracheal Tube Aspirate Sputum Culture - Final 07/20/25 10:01 Urine Culture - Preliminary Urine,Clean Catch Gram Negative Rods Gram Negative Rods#2 07/20/25 11:24 Blood Culture - Preliminary Blood NEGATIVE TO DATE 07/20/25 09:08 Blood Culture - Preliminary Blood NEGATIVE TO DATE A&P Assessment and plan 1. Respiratory failure: 2. Angioedema: Plan: # Angioedema secondary to increased lisinopril dose Patient's presentation is secondary to lisinopril induced airway edema. He was a difficult intubation. Currently tolerating ventilator well. Good cough leak noted today. On Pepcid Zyrtec and Solu-Medrol to be continued. continue Benadryl. Plan to extubate after dialysis # Intubated for airway protection/critical airway - Currently on low vent settings, will continue to monitor closely. Discussed case with RT will monitor with complete checks daily. Getting as needed DuoNebs. # Probable sepsis due to UTI or pneumonia Reviewed chest x-ray showing lung hyperinflation some scarring at the left base no clear infiltrates noted. Also reviewed CT scan from 07/20/2025-small areas of bilateral dependent pneumonitis possible atelectasis otherwise grossly unremarkable. Labs show a white count of 6.3 interestingly his BNP is more than 70,000 unclear etiology. Cultures so far are only showing gram-negative rods in urine. # Probable congestive heart failure Patient's EF was 55% back in December with moderately severe left ventricular hypertrophy. I reviewed the echocardiogram results. BNP is elevated at 70,000. Does not appear to be volume overloaded currently on his chest x-ray also getting scheduled hemodialysis from nephrology. # Aspiration pneumonia Continue antibiotics tomorrow if cultures are negative other than for his UTI, GNRs in urine Start robinols # Acute encephalopathy Continue to wean sedation and do sedation vacation and neurochecks. # Hypertensive urgency Maintain systolic blood pressure less than 160 and diastolic less than 110 # Type 1 diabetes Insulin sliding scale moderate. Appreciate nephrology help. # End-stage renal disease on HD MWF schedule # DVT GI prophylaxis with famotidine and Lovenox # Full code # Goals of care no family at bedside The high probability of a clinically significant, sudden or life threatening deterioration of the patient's [Respiratory, cardiac and renal] system(s) required my full and direct attention, intervention and personal management. The critical care time is as shown. This time is in addition to time spent performing any reported procedures but includes the following: [x] Data and vital sign review and interpretation [x] Patient assessment, examination and intervention [x] Documentation [x] Medication orders and management Critical Care Time (min): 45 Telemedicine Consent Patient seen today via Telemedicine by agreement and consent of patient.? Telemedicine technology used during the visit includes audio and, as available, review of images.? The patient encounter is appropriate and reasonable under the circumstances given the patient?s particular presentation at this time.? The patient has been advised of the potential risks and limitations of this mode of treatment (including but not limited to the absence of in-person examination) and has agreed to be treated in a remote fashion in spite of them.? Any, and all, of the patient?s/patient?s family?s questions on this issue have been answered and I have made no promises or guarantees to the patient. The patient has also been advised to contact this office for worsening conditions or problems, and seek emergency medical treatment and/or call 911 if the patient deems either necessary PDMP PDMP Reviewed: Not Reviewed Attestations 2 Medical Necessity Statement*: intubated Coding Level of Care Code Critical Care >/= 30 minutes Diagnoses Respiratory failure J96.90 Angioedema T78.3XXA
--- NOTE | 2025-07-22 15:24 | PC.NURSE ---
Patient was extubated at 1520 by Respiratory therapist. Patient was placed on 3L NC.
--- NOTE | 2025-07-22 19:12 | P.PN_ITS ---
Subjective 2 Subjective: Patient was seen this morning, he is currently intubated, sedation being weaned down, he is able to awaken, able to awaken to his name, does not follow commands, plans on spontaneous breathing trial, is off pressors, plans on dialysis today, Vitals/I&O/Wt Last Vital Signs Temp 98.1 F 07/22/25 11:52 Pulse 101 H 07/22/25 18:30 Resp 10 L 07/22/25 15:11 BP 180/105 07/22/25 18:30 Pulse Ox 97 07/22/25 18:30 O2 Del Method Room Air 07/22/25 18:30 O2 Flow Rate 3 07/22/25 15:00 FiO2 30 07/22/25 15:11 07/22/25 07/22/25 07/22/25 06:59 14:59 22:59 Intake Total 200 / 397.210 97.270 / 97.270 6.875 / 104.145 Output Total 150 / 150 150 / 150 Balance 50 / 247.210 -52.730 / -52.730 6.875 / -45.855 Weight last 48 hrs Weight 55.5 kg Weight 54 kg Weight 58.6 kg Physical Exam 2 Const: COMMON NORMALS: no acute distress ORIENTATION/CONSCIOUSNESS: Yes awake and Yes oriented to person; not oriented to place and not oriented to time HENMT: OTHER: Was equal reactive to light, Resp: COMMON NORMALS: normal respiratory effort, No retractions and No use of accessory muscles AUSCULTATION: crackles and wheezes Cardio: COMMON NORMALS: regular rate, regular rhythm, S1 normal heart sound present and S2 normal heart sound present RATE: regular rate RHYTHM: r egular rhythm HEART SOUNDS: S1 normal heart sound present and S2 normal heart sound present GI: COMMON NORMALS: Normal to inspection, nondistended, normoactive bowel sounds present and non-tender Extremity: COMMON NORMALS: no pedal edema Neuro: SENSORIUM/ORIENTATION: Yes oriented to person, No oriented to place and No oriented to time Urinary Catheter Management: Ramos: Cath Placed During This Visit: yes Reason for Continuing Indwelling Catheter: Accurate Measurement of Urinary Output in Critically Ill Patients Urinary Catheter Date of Insertion: 07/20/25 Urinary Catheter Time of Insertion: 10:00 Data 07/22/25 03:56 07/22/25 05:43 Micro: Microbiology 07/20/25 14:04 Gram Stain - Final Sputum - Endotracheal Tube Aspirate Sputum Culture - Final 07/20/25 10:01 Urine Culture - Preliminary Urine,Clean Catch Gram Negative Rods Gram Negative Rods#2 A&P Assessment and plan 1. End stage renal disease on dialysis: 2. Angioedema: 3. Acute hypoxic respiratory failure: 4. Sepsis: 5. ARDS (adult respiratory distress syndrome): 6. Aspiration pneumonia: Plan: Angioedema/allergic reaction - Etiology unclear question, adverse reaction to baclofen which is new medication that he has been on, he is on lisinopril - Found to have difficult airway, diffuse edema of the airway, vocal cords, difficulty with bougie passing through vocal cords - Status post FFP, Pepcid, Benadryl, Solu-Medrol - On examination swelling around the mouth, lips, tongue has resolved Plan -Continue to monitor - Continue Solu-Medrol, Pepcid, Zyrtec - Will consider further doses of FFP/TXA - d/c lisinopril and baclofen Acute hypoxic respiratory failure - Aspiration pneumonia, history of recurrent aspiration - Aspiration pneumonitis - Acute flash pulmonary edema - Angioedema Plan - Currently intubated, sedated on mechanical ventilation -Sedation vacation - Propofol for sedation - Fentanyl for pain control sedation -Nephrology consulted for dialysis, status post dialysis - Vancomycin - Meropenem - Solu-Medrol 40 mg IV every 8 hours -DuoNeb, budesonide - PICC line placed Sepsis -With septic shock, currently resolved, off Levophed - Secondary to UTI, pneumonia urinary tract infection -History of ESBL UTI - Antibiotics as above Acute encephalopathy -Secondary to UTI, pneumonia, sepsis Type 1 diabetes mellitus - Moderate dose sliding scale Hypertensive urgency resolved - Cardene drip Full code Pepcid for GI prophylaxis Heparin for DVT prophylaxis Plan on monitoring blood sugars, consult pulmonary, minimize sedation, sedation vacation, spontaneous breathing trial, IV antibiotics, IV steroids, plans on extubation today PDMP PDMP Reviewed: Not Reviewed Attestations 2 Medical Necessity Statement*: Patient requires hospitalization for acute hypoxic respiratory failure Coding Level of Care Code Critical Care >/= 30 minutes Critical care time (in minutes): 40 The high probability of a clinically significant, sudden or life threatening deterioration, as referenced in this documentation, required my full and direct attention, intervention and personal management. The critical care time shown is in addition to time spent performing any reported separately billable procedures and includes the following: [x] Data and vital sign review and interpretation [x ] Patient assessment, examination and intervention [x] Medication orders and management [x] Patient/Family updates as able [x] Care Coordination and Documentation. Diagnoses End stage renal disease on dialysis N18.6; Z99.2 Angioedema T78.3XXA Acute hypoxic respiratory failure J96.01 Sepsis A41.9 ARDS (adult respiratory distress syndrome) J80 Aspiration pneumonia J69.0
--- NOTE | 2025-07-22 19:48 | P.PN_ITS ---
Subjective 2 Subjective: remains on vent Medications: Reviewed: Yes Vitals/I&O/Wt Last Vital Signs Temp 98.1 F 07/22/25 11:52 Pulse 101 H 07/22/25 18:30 Resp 10 L 07/22/25 15:11 BP 180/105 07/22/25 18:30 Pulse Ox 97 07/22/25 18:30 O2 Del Method Room Air 07/22/25 18:30 O2 Flow Rate 3 07/22/25 15:00 FiO2 30 07/22/25 15:11 07/22/25 07/22/25 07/22/25 06:59 14:59 22:59 Intake Total 200 / 397.210 97.270 / 97.270 6.875 / 104.145 Output Total 150 / 150 150 / 150 Balance 50 / 247.210 -52.730 / -52.730 6.875 / -45.855 Weight last 48 hrs Weight 55.5 kg Weight 54 kg Weight 58.6 kg Physical Exam 2 Narrative: intubated , sedated PEERLA + JVD S1S2 RRR LUngs with juan crackles Abd = soft ,non tender No edema skin - no rash Urinary Catheter Management: Ramos: Cath Placed During This Visit: yes Reason for Continuing Indwelling Catheter: Accurate Measurement of Urinary Output in Critically Ill Patients Urinary Catheter Date of Insertion: 07/20/25 Urinary Catheter Time of Insertion: 10:00 Data 07/22/25 03:56 07/22/25 05:43 Micro: Microbiology 07/20/25 14:04 Gram Stain - Final Sputum - Endotracheal Tube Aspirate Sputum Culture - Final 07/20/25 10:01 Urine Culture - Preliminary Urine,Clean Catch Gram Negative Rods Gram Negative Rods#2 A&P Assessment and plan 1. End stage renal disease on dialysis: Plan: 1. End-stage renal disease: MWF schedule as outpatient, HD today 2. Angioedema, management per primary team status post steroids and Benadryl 3. Acute respiratory failure, possible aspiration pneumonia and fluid overload, HD as above 4. Sepsis secondary to UTI and aspiration pneumonia 5. Acute encephalopathy multifactorial Patient evaluated using audiovisual cart time. Time spent 40 minutes PDMP PDMP Reviewed: Not Reviewed Attestations 2 Medical Necessity Statement*: per medicine Coding Level of Care Code Acute Code for Chg Fwd Diagnoses End stage renal disease on dialysis N18.6; Z99.2
[2025-07-22] MEDS: nicardipine 20 MG/200 ML PREMIX 50 MG IV (19:59)
[2025-07-22] MEDS: morphine 4 mg/mL SDV 1 mL 2 MG IVP (21:05)
[2025-07-22] MEDS: vancomycin 500 MG in sodium chloride 0.9% (plus) 100 ML 200 MG IV (21:07)
[2025-07-22] MEDS: ATORVASTATIN 10 MG TABLET PO (21:07)
[2025-07-22] MEDS: nicardipine 20 MG/200 ML PREMIX 30 MG IV (23:58)
[2025-07-23] VITALS (54 sets, daily range): BP systolic 129–168; BP diastolic 61–93; PULSE 87–107; RESP 14–41; TEMP 36.2–37; O2SAT 85–100
--- NOTE | 2025-07-23 04:24 | PC.NURSE ---
PICC line removal: Picc line still oozing/leaking blood despite changing dressing and applying pressure. Dressings are completely saturated in blood with clots under the dressing. Dr. Garrett notifed, permission received to remove picc line.
[2025-07-23 04:38] LABS: ABG PCO2 23.6 mmHg (35-45); Arterial Blood Gas Hematocrit 33.8 % (42-52); Blood Gas Operator Identificat JD; Blood Gas Sample Site Radial, right; Blood Gas Sample Type Arterial; HCO3 ABG 23.1 mmol/L (22-26); PO2 ABG 97.4 mmHg (80.0-100.0); PO2 FiO2 Ratio Arterial Blood 463
[2025-07-23 04:39] LABS: ABG PH Result 7.60 (7.35-7.45)
[2025-07-23] MEDS: diphenhydrAMINE 50 mg/mL SDV 1mL IVP ×2 (04:40→17:26)
[2025-07-23] MEDS: methylPREDNISolone sod succ 40 mg/mL INJ IVP ×2 (04:41→12:23)
[2025-07-23 04:51] LABS: Hematocrit 35.4 % (37-53); Hemoglobin 11.40 g/dL (11.27-16.99); Mean Corpuscular HGB Conc 32.2 g/dL (30-55); Mean Corpuscular Hemoglobin 29.0 pg (27-33); Mean Corpuscular Volume 90.1 fl (82-101); Nucleated Red Blood Cells % 0 %; Platelet Count 326 10^3/cmm (157-399); Red Blood Count 3.93 10^6/uL (3.85-5.65); White Blood Count 9.85 10^3/uL (3.29-11.43)
[2025-07-23 05:14] LABS: Lactate (Lactic Acid level) 2.4 mmol/L (0.5-2.2)
[2025-07-23 05:20] LABS: Alanine Aminotransferase 20 U/L (0-41); Albumin Level 4.1 g/dL (3.5-5.2); Alkaline Phosphatase 117 U/L (40-130); Anion Gap 26.7 (5-19); Aspartate Amino Transferase 34 U/L (0-40); Blood Urea Nitrogen 46 mg/dL (6-20); Calcium 9.1 mg/dL (8.5-10.5); Carbon Dioxide 21 mmol/L (22-29); Chloride 95 mmol/L (98-107); Globulin 3.2 g/dL (1.3-4.6); Glucose 128 mg/dL (65-115); Magnesium 2.1 mg/dL (1.7-2.3); Osmolality Calculated 300 mOsm/kg (285-295); Potassium 4.7 mmol/L (3.5-5.1); Sodium 138 mmol/L (136-145); Total Protein 7.3 g/dL (6.6-8.7)
[2025-07-23 05:25] LABS: Procalcitonin 0.41 ng/mL (0-0.5)
[2025-07-23 05:45] LABS: NT Pro B Type Natriuretic Pept 33689 pg/mL (0-125)
--- NOTE | 2025-07-23 06:23 | PC.NURSE ---
Addendum entered by Cindy Brown RN 07/23/25 06:24: Witnessed waste of propofol and fentanyl with ZHANE Ortiz Original Note: Waste: Wasted 47 ml of propofol and 65 ml fentanyl with ZHANE White.
[2025-07-23] MEDS: nicardipine 20 MG/200 ML PREMIX 30 MG IV ×3 (07:25→20:24)
--- NOTE | 2025-07-23 10:13 | P.PN_ITS ---
Subjective 2 Subjective: Tyrese Leach is a 55 year old male with past medical history of end-stage renal disease on dialysis, type 1 diabetes, hypertension comes to ER with somnolence and confusion. He was noted to have swelling of the mouth and tongue intubated for worsening angioedema. He had recently started taking lisinopril at an increased dose per report Currently on propofol drip tolerating low ventilator settings well. Started on Solu-Medrol Pepcid and Zyrtec also was given FFP and TXA lisinopril on hold. Due to a clear picture of whether this is sepsis due to urinary tract infection versus pneumonia vancomycin and meropenem was started. Also placed on Cardene drip for hypertensive urgency 07/22/25: Has mental disability and does not communicate at baseline. Has a great cuff leak today but having oral and ett secretions. Has been intubated twice this year already and has aspiration risk 07/23/25 extubated. not on o2. unable to communicate, thats his baseline Review of systems-non verbal Vitals/I&O/Wt Last Vital Signs Temp 98.2 F 07/23/25 07:30 Pulse 101 H 07/23/25 08:29 Resp 16 07/23/25 08:11 BP 151/76 07/23/25 08:00 Pulse Ox 100 07/23/25 08:11 O2 Del Method Room Air 07/23/25 08:11 O2 Flow Rate 3 07/22/25 15:00 FiO2 30 07/22/25 15:11 07/22/25 07/23/25 07/23/25 22:59 06:59 14:59 Intake Total 346.042 / 993.312 390.833 / 1384.145 Output Total 50 / 2701 Balance 346.042 / -1657.688 340.833 / -1316.855 Weight last 48 hrs Weight 113 lb 8 oz Weight 117 lb 15.157 oz Weight 122 lb 5.705 oz Physical Exam 2 Narrative: per RN General: looking around the room non verbal Pulmonary: CTAB. Cardiovascular: rrr, nl s1s2, no mrg Abdomen: soft, nt, nd, no r/g, Extremities: pulses +, no edema Neurologic: grossly intact Agree with above exam Urinary Catheter Management: Ramos: Cath Placed During This Visit: yes Reason for Continuing Indwelling Catheter: Accurate Measurement of Urinary Output in Critically Ill Patients Urinary Catheter Date of Insertion: 07/20/25 Urinary Catheter Time of Insertion: 10:00 Data 07/23/25 04:16 07/23/25 04:16 Micro: Microbiology 07/20/25 14:04 Gram Stain - Final Sputum - Endotracheal Tube Aspirate Sputum Culture - Final 07/20/25 10:01 Urine Culture - Preliminary Urine,Clean Catch Gram Negative Rods Gram Negative Rods#2 A&P Assessment and plan 1. Respiratory failure: 2. Angioedema: Plan: # Angioedema secondary to increased lisinopril dose Patient's presentation is secondary to lisinopril induced airway edema. He was a difficult intubation. extubated 07/22. On Pepcid Zyrtec and stop Solu-Med and stop Benadryl. ABH- metabolic alkalosis ph 7.6- most likely post dialysis # Intubated for airway protection/critical airway Getting as needed DuoNebs. on RA # Probable sepsis due to UTI or pneumonia Reviewed chest x-ray showing lung hyperinflation some scarring at the left base no clear infiltrates noted. Also reviewed CT scan from 07/20/2025-small areas of bilateral dependent pneumonitis possible atelectasis otherwise grossly unremarkable. Labs show a white count of 6.3 interestingly his BNP is more than 70,000 unclear etiology. Cultures so far are only showing gram-negative rods in urine. DC vancomycin # Probable congestive heart failure Patient's EF was 55% back in December with moderately severe left ventricular hypertrophy. I reviewed the echocardiogram results. BNP is elevated at 70,000. # Aspiration pneumonia DC abx. except for treatment of UTI # Acute encephalopathy Baseline MS achieved # Hypertensive urgency Maintain systolic blood pressure less than 160 and diastolic less than 110 # Type 1 diabetes Insulin sliding scale moderate. Appreciate nephrology help. # End-stage renal disease on HD MWF schedule # DVT GI prophylaxis with famotidine and Lovenox # Full code # Goals of care no family at bedside- state appointed guardian May need PEG tube in the future due to repeated aspiration episodes and hospitalizations I spent a total of 30 minutes on the date of the encounter performing the followings: ?Preparing to see patient (reviewing test results and prior EHR documentation) ?Obtaining and/or reviewing separately obtained history ?Performing a medically appropriate exam and/or evaluation ?Providing counseling and education the patient, family or caregiver ?Ordering medications, tests, or procedures ?Referring to and communicating with other healthcare professionals ?Documenting clinical information in the electronic health record ?Independently interpreting results and communicating findings to the patient, family, or caregiver ?Coordinating care across providers and services Telemedicine Consent Patient seen today via Telemedicine by agreement and consent of patient.? Telemedicine technology used during the visit includes audio and, as available, review of images.? The patient encounter is appropriate and reasonable under the circumstances given the patient?s particular presentation at this time.? The patient has been advised of the potential risks and limitations of this mode of treatment (including but not limited to the absence of in-person examination) and has agreed to be treated in a remote fashion in spite of them.? Any, and all, of the patient?s/patient?s family?s questions on this issue have been answered and I have made no promises or guarantees to the patient. The patient has also been advised to contact this office for worsening conditions or problems, and seek emergency medical treatment and/or call 911 if the patient deems either necessary PDMP PDMP Reviewed: Not Reviewed Attestations 2 Medical Necessity Statement*: okay to dc to select from pulm stand point Coding Level of Care Code 00978 Diagnoses Respiratory failure J96.90 Angioedema T78.3XXA
--- NOTE | 2025-07-23 11:45 | P.PN_ITS ---
Subjective 2 Subjective: extubated Medications: Reviewed: Yes Vitals/I&O/Wt Last Vital Signs Temp 98.2 F 07/23/25 07:30 Pulse 101 H 07/23/25 08:29 Resp 16 07/23/25 08:11 BP 151/76 07/23/25 08:00 Pulse Ox 100 07/23/25 08:11 O2 Del Method Room Air 07/23/25 08:11 O2 Flow Rate 3 07/22/25 15:00 FiO2 30 07/22/25 15:11 07/22/25 07/23/25 07/23/25 22:59 06:59 14:59 Intake Total 346.042 / 993.312 390.833 / 1384.145 Output Total 50 / 2701 Balance 346.042 / -1657.688 340.833 / -1316.855 Weight last 48 hrs Weight 51.483 kg Weight 53.5 kg Weight 55.5 kg Physical Exam 2 Narrative: extubated PEERLA + JVD S1S2 RRR LUngs with juan crackles Abd = soft ,non tender No edema skin - no rash Urinary Catheter Management: Ramos: Cath Placed During This Visit: yes Reason for Continuing Indwelling Catheter: Accurate Measurement of Urinary Output in Critically Ill Patients Urinary Catheter Date of Insertion: 07/20/25 Urinary Catheter Time of Insertion: 10:00 Data 07/23/25 04:16 07/23/25 04:16 Micro: Microbiology 07/20/25 14:04 Gram Stain - Final Sputum - Endotracheal Tube Aspirate Sputum Culture - Final 07/20/25 10:01 Urine Culture - Preliminary Urine,Clean Catch Gram Negative Rods Gram Negative Rods#2 A&P Assessment and plan 1. End stage renal disease on dialysis: Plan: 1. End-stage renal disease: MWF schedule as outpatient, HD tomorrow 2. Angioedema, management per primary team status post steroids Land Benadryl 3. Acute respiratory failure, possible aspiration pneumonia and fluid overload, HD as above, extubated 4. Sepsis secondary to UTI and aspiration pneumonia 5. Acute encephalopathy multifactorial Patient evaluated using audiovisual cart time. Time spent 40 minutes PDMP PDMP Reviewed: Not Reviewed Attestations 2 Medical Necessity Statement*: per [facility] Coding Level of Care Code Acute Code for Chg Fwd Diagnoses End stage renal disease on dialysis N18.6; Z99.2
[2025-07-23] MEDS: morphine 4 mg/mL SDV 1 mL 2 MG IVP (12:16)
[2025-07-23] MEDS: heparin 5,000 unit/mL INJ 1 mL 5000 UNIT SUBCUT (12:23)
--- NOTE | 2025-07-23 18:57 | P.PN_ITS ---
Subjective 2 Subjective: Patient was seen this morning, he is alert to person, not to place, to time, he can follow some commands, he smiles at me, Vitals/I&O/Wt Last Vital Signs Temp 98.2 F 07/23/25 07:30 Pulse 93 07/23/25 18:00 Resp 24 H 07/23/25 18:00 BP 151/67 07/23/25 18:00 Pulse Ox 97 07/23/25 18:00 O2 Del Method Room Air 07/23/25 18:00 O2 Flow Rate 3 07/22/25 15:00 FiO2 30 07/22/25 15:11 07/23/25 07/23/25 07/23/25 06:59 14:59 22:59 Intake Total 390.833 / 1384.145 187 / 187 Output Total 50 / 2701 Balance 340.833 / -1316.855 187 / 187 Weight last 48 hrs Weight 51.483 kg Weight 53.5 kg Weight 55.5 kg Physical Exam 2 Const: COMMON NORMALS: no acute distress Resp: COMMON NORMALS: normal respiratory effort, No retractions and No use of accessory muscles OTHER: Wheezing and crackles in all lung moraes Cardio: COMMON NORMALS: regular rate, regular rhythm, S1 normal heart sound present and S2 normal heart sound present RATE: regular rate RHYTHM: r egular rhythm HEART SOUNDS: S1 normal heart sound present and S2 normal heart sound present GI: COMMON NORMALS: Normal to inspection, nondistended, normoactive bowel sounds present and non-tender Extremity: COMMON NORMALS: no pedal edema Urinary Catheter Management: Ramos: Cath Placed During This Visit: yes Reason for Continuing Indwelling Catheter: Accurate Measurement of Urinary Output in Critically Ill Patients Urinary Catheter Date of Insertion: 07/20/25 Urinary Catheter Time of Insertion: 10:00 Data 07/23/25 04:16 07/23/25 04:16 Micro: Microbiology 07/20/25 10:01 Urine Culture - Final Urine,Clean Catch Escherichia coli esbl A&P Assessment and plan 1. End stage renal disease on dialysis: 2. Angioedema: 3. Acute hypoxic respiratory failure: 4. Sepsis: 5. ARDS (adult respiratory distress syndrome): 6. Aspiration pneumonia: Plan: Angioedema/allergic reaction - Etiology unclear question, adverse reaction to baclofen which is new medication that he has been on, he is on lisinopril - Found to have difficult airway, diffuse edema of the airway, vocal cords, difficulty with bougie passing through vocal cords - Status post FFP, Pepcid, Benadryl, Solu-Medrol - On examination swelling around the mouth, lips, tongue has resolved Plan -Continue to monitor - Continue Solu-Medrol, Pepcid, Zyrtec - d/c lisinopril and baclofen Acute hypoxic respiratory failure - Aspiration pneumonia, history of recurrent aspiration - Aspiration pneumonitis - Acute flash pulmonary edema - Angioedema - S/p extubation 07/22/2025 Plan -Nephrology consulted for dialysis - Vancomycin - Meropenem - Solu-Medrol 40 mg IV every 24 hours -DuoNeb, budesonide - PICC line placed - Speech therapy eval, will consider modified barium swallow tomorrow, High risk of aspiration - Modified barium swallow tomorrow - Will discuss with guardian about PEG tube placement Sepsis -With septic shock, currently resolved, off Levophed - Secondary to UTI, pneumonia urinary tract infection, ESBL E. coli UTI -History of ESBL UTI - Antibiotics as above Acute encephalopathy -Secondary to UTI, pneumonia, sepsis Type 1 diabetes mellitus - Moderate dose sliding scale Hypertensive urgency - Cardene drip - Wean to Norvasc, Coreg Full code Pepcid for GI prophylaxis Heparin for DVT prophylaxis Plan on monitoring monitor blood pressure, wean off Cardene drip PDMP PDMP Reviewed: Not Reviewed Attestations 2 Medical Necessity Statement*: Patient requires hospitalization for angioedema, respiratory failure, sepsis, ESBL E. coli UTI Diagnoses End stage renal disease on dialysis N18.6; Z99.2 Angioedema T78.3XXA Acute hypoxic respiratory failure J96.01 Sepsis A41.9 ARDS (adult respiratory distress syndrome) J80 Aspiration pneumonia J69.0
[2025-07-23] MEDS: ATORVASTATIN 10 MG TABLET PO (22:45)
[2025-07-24] VITALS (40 sets, daily range): BP systolic 127–162; BP diastolic 67–116; PULSE 70–88; RESP 13–32; TEMP 36.2–37; O2SAT 89–100
[2025-07-24] MEDS: heparin 5,000 unit/mL INJ 1 mL 5000 UNIT SUBCUT ×2 (01:01→12:24)
[2025-07-24 05:02] LABS: Hematocrit 31.9 % (37-53); Hemoglobin 10.40 g/dL (11.27-16.99); Mean Corpuscular HGB Conc 32.6 g/dL (30-55); Mean Corpuscular Hemoglobin 29.4 pg (27-33); Mean Corpuscular Volume 90.1 fl (82-101); Nucleated Red Blood Cells % 0 %; Platelet Count 265 10^3/cmm (157-399); Red Blood Count 3.54 10^6/uL (3.85-5.65); White Blood Count 7.03 10^3/uL (3.29-11.43)
[2025-07-24 05:33] LABS: Alanine Aminotransferase 17 U/L (0-41); Albumin Level 3.7 g/dL (3.5-5.2); Alkaline Phosphatase 104 U/L (40-130); Anion Gap 24.2 (5-19); Aspartate Amino Transferase 26 U/L (0-40); Blood Urea Nitrogen 73 mg/dL (6-20); Calcium 8.1 mg/dL (8.5-10.5); Carbon Dioxide 21 mmol/L (22-29); Chloride 98 mmol/L (98-107); Globulin 2.4 g/dL (1.3-4.6); Glucose 149 mg/dL (65-115); Osmolality Calculated 310 mOsm/kg (285-295); Potassium 5.2 mmol/L (3.5-5.1); Sodium 138 mmol/L (136-145); Total Protein 6.1 g/dL (6.6-8.7)
--- NOTE | 2025-07-24 13:26 | PC.NURSE ---
Patient in care of Dialysis staff in dialysis room on medical surgical floor.
--- NOTE | 2025-07-24 16:05 | P.PN_ITS ---
Subjective 2 Subjective: Patient was seen this morning, he is alert, does not follow commands, nonverbal, normotensive, on room air Vitals/I&O/Wt Last Vital Signs Temp 97.2 F L 07/24/25 13:59 Pulse 73 07/24/25 13:59 Resp 16 07/24/25 13:59 BP 141/80 07/24/25 13:59 Pulse Ox 99 07/24/25 12:30 O2 Del Method Room Air 07/24/25 12:30 O2 Flow Rate 3 07/22/25 15:00 FiO2 30 07/22/25 15:11 07/24/25 07/24/25 07/24/25 06:59 14:59 22:59 Intake Total 132 / 132 Output Total Balance - 132 / 132 Weight last 48 hrs Weight 52 kg Weight 51.483 kg Physical Exam 2 Const: COMMON NORMALS: no acute distress ORIENTATION/CONSCIOUSNESS: Yes awake and Yes oriented to person; not oriented to place and not oriented to time Eye: COMMON NORMALS: Equal, round and reactive pupils present PUPIL: Yes Equal, round and reactive pupils present Resp: COMMON NORMALS: normal respiratory effort, No retractions, No use of accessory muscles and clear to auscultation bilaterally AUSCULTATION: clear to auscultation bilaterally Cardio: COMMON NORMALS: regular rate, regular rhythm, S1 normal heart sound present and S2 normal heart sound present RATE: regular rate RHYTHM: r egular rhythm HEART SOUNDS: S1 normal heart sound present and S2 normal heart sound present GI: COMMON NORMALS: Normal to inspection, nondistended, normoactive bowel sounds present and non-tender Extremity: COMMON NORMALS: no pedal edema Neuro: SENSORIUM/ORIENTATION: Yes oriented to person, No oriented to place and No oriented to time Urinary Catheter Management: Ramos: Cath Placed During This Visit: yes Reason for Continuing Indwelling Catheter: Accurate Measurement of Urinary Output in Critically Ill Patients Urinary Catheter Date of Insertion: 07/20/25 Urinary Catheter Time of Insertion: 10:00 Data 07/24/25 04:40 07/24/25 04:40 Micro: Microbiology 07/20/25 10:01 Urine Culture - Final Urine,Clean Catch Escherichia coli esbl A&P Assessment and plan 1. End stage renal disease on dialysis: 2. Angioedema: 3. Acute hypoxic respiratory failure: 4. Sepsis: 5. ARDS (adult respiratory distress syndrome): 6. Aspiration pneumonia: Plan: Angioedema/allergic reaction - Etiology unclear question, adverse reaction to baclofen which is new medication that he has been on, he is on lisinopril - Found to have difficult airway, diffuse edema of the airway, vocal cords, difficulty with bougie passing through vocal cords - Status post FFP, Pepcid, Benadryl, Solu-Medrol - On examination swelling around the mouth, lips, tongue has resolved Plan -Continue to monitor - Continue Solu-Medrol -Pepcid, Zyrtec - d/c lisinopril and baclofen Acute hypoxic respiratory failure - Aspiration pneumonia, history of recurrent aspiration - Aspiration pneumonitis - Acute flash pulmonary edema - Angioedema - S/p extubation 07/22/2025 Plan -Nephrology consulted for dialysis - Vancomycin - Meropenem - Solu-Medrol 40 mg IV every 24 hours -DuoNeb, budesonide - PICC line placed - Speech therapy eval, will consider modified barium swallow tomorrow, High risk of aspiration - Modified barium swallow tomorrow - Will discuss with guardian about PEG tube placement Sepsis -With septic shock, currently resolved, off Levophed - Secondary to UTI, pneumonia urinary tract infection, ESBL E. coli UTI -History of ESBL UTI - Antibiotics as above Acute encephalopathy -Secondary to UTI, pneumonia, sepsis Type 1 diabetes mellitus - Moderate dose sliding scale Hypertensive urgency - Cardene drip - Wean to Norvasc, Coreg Full code Pepcid for GI prophylaxis Heparin for DVT prophylaxis Plan on moved to medical floors, modified barium swallow PDMP PDMP Reviewed: Not Reviewed Attestations 2 Medical Necessity Statement*: Patient requires hospitalization for acute hypoxic respiratory failure, angioedema, aspiration Diagnoses End stage renal disease on dialysis N18.6; Z99.2 Angioedema T78.3XXA Acute hypoxic respiratory failure J96.01 Sepsis A41.9 ARDS (adult respiratory distress syndrome) J80 Aspiration pneumonia J69.0
--- NOTE | 2025-07-24 18:58 | FL_ITS ---
WS: [id number] Modified barium swallow, 07/24/2025 Clinical Data: Oral dysphagia Comparison: None. Fluoroscopy time: 4min [id number] # of spot films: Findings: The patient had abnormal uncontrolled tongue movements. The various food and liquids were propelled by the tongue. Thin liquids spill to the piriformis and there was slight penetration but no aspiration. Food propelled by the tongue spilled to the piriformis and there was residual which cleared with swallowing. No aspiration or penetration occurred with food. The barium tablet was propelled by additional liquid from the oral cavity to the hypopharynx then the esophagus and finally the stomach. Esophageal motility was poor. FL/FL barium swallow modifd [id number] Impression: 1. Abnormal tongue movements which propelled food and liquids into the hypophar ynx. 2. Slight penetration with liquids but no aspiration. 3. No penetration or aspiration with food items. 4. Poor esophageal motility.
--- NOTE | 2025-07-24 20:10 | PC.NURSE ---
Report called to Yesenia on [facility], patient transferred to 278 bed 1 at 2005
[2025-07-24] MEDS: ATORVASTATIN 10 MG TABLET PO (23:05)
[2025-07-25] VITALS (7 sets, daily range): BP systolic 111–164; BP diastolic 65–88; PULSE 71–97; RESP 15–18; TEMP 36.6–36.8; O2SAT 96–100
[2025-07-25] MEDS: heparin 5,000 unit/mL INJ 1 mL 5000 UNIT SUBCUT ×2 (00:51→12:26)
[2025-07-25 06:23] LABS: Hematocrit 33.5 % (37-53); Hemoglobin 10.70 g/dL (11.27-16.99); Mean Corpuscular HGB Conc 31.9 g/dL (30-55); Mean Corpuscular Hemoglobin 29.0 pg (27-33); Mean Corpuscular Volume 90.8 fl (82-101); Nucleated Red Blood Cells % 0.3 %; Platelet Count 245 10^3/cmm (157-399); Red Blood Count 3.69 10^6/uL (3.85-5.65); White Blood Count 7.54 10^3/uL (3.29-11.43)
[2025-07-25 06:45] LABS: Alanine Aminotransferase 19 U/L (0-41); Albumin Level 3.9 g/dL (3.5-5.2); Alkaline Phosphatase 95 U/L (40-130); Anion Gap 19.2 (5-19); Aspartate Amino Transferase 36 U/L (0-40); Blood Urea Nitrogen 42 mg/dL (6-20); Calcium 8.8 mg/dL (8.5-10.5); Carbon Dioxide 25 mmol/L (22-29); Chloride 97 mmol/L (98-107); Globulin 2.6 g/dL (1.3-4.6); Glucose 97 mg/dL (65-115); Osmolality Calculated 294 mOsm/kg (285-295); Potassium 4.2 mmol/L (3.5-5.1); Sodium 137 mmol/L (136-145); Total Protein 6.5 g/dL (6.6-8.7)
--- NOTE | 2025-07-25 14:58 | P.PN_ITS ---
Subjective 2 Subjective: Patient is alert awake this morning, he is nonverbal, afebrile, normotensive, on room air Vitals/I&O/Wt Last Vital Signs Temp 97.9 F 07/25/25 11:30 Pulse 96 07/25/25 14:01 Resp 18 07/25/25 14:01 BP 111/65 07/25/25 11:30 Pulse Ox 100 07/25/25 14:01 O2 Del Method Room Air 07/25/25 14:01 O2 Flow Rate 3 07/22/25 15:00 FiO2 30 07/22/25 15:11 07/24/25 07/25/25 07/25/25 22:59 06:59 14:59 Intake Total 900 / 1032 120 / 1152 360 / 360 Output Total 2405 / 2405 Balance -1505 / -1373 120 / -1253 360 / 360 Weight last 48 hrs Weight 50.802 kg Weight 51 kg Weight 52 kg Physical Exam 2 Const: COMMON NORMALS: no acute distress and patient oriented x3 Resp: COMMON NORMALS: normal respiratory effort, No retractions, No use of accessory muscles and clear to auscultation bilaterally AUSCULTATION: clear to auscultation bilaterally Cardio: COMMON NORMALS: regular rate, regular rhythm, S1 normal heart sound present and S2 normal heart sound present RATE: regular rate RHYTHM: r egular rhythm HEART SOUNDS: S1 normal heart sound present and S2 normal heart sound present GI: COMMON NORMALS: Normal to inspection, nondistended, normoactive bowel sounds present and non-tender Extremity: COMMON NORMALS: no pedal edema Neuro: COMMON NORMALS: patient oriented x3 Psych: COMMON NORMALS: mental status grossly normal Urinary Catheter Management: Ramos: Cath Placed During This Visit: yes Reason for Continuing Indwelling Catheter: Other Urinary Catheter Date of Insertion: 07/20/25 Urinary Catheter Time of Insertion: 10:00 Data 07/25/25 05:54 07/25/25 05:54 Micro: Microbiology 07/20/25 11:24 Blood Culture - Final Blood NO GROWTH AFTER 5 DAYS 07/20/25 09:08 Blood Culture - Final Blood NO GROWTH AFTER 5 DAYS A&P Assessment and plan 1. End stage renal disease on dialysis: 2. Angioedema: 3. Acute hypoxic respiratory failure: 4. Sepsis: 5. ARDS (adult respiratory distress syndrome): 6. Aspiration pneumonia: Plan: Angioedema/allergic reaction - Etiology unclear question, adverse reaction to baclofen which is new medication that he has been on, he is on lisinopril - Found to have difficult airway, diffuse edema of the airway, vocal cords, difficulty with bougie passing through vocal cords - Status post FFP, Pepcid, Benadryl, Solu-Medrol - On examination swelling around the mouth, lips, tongue has resolved Plan -Continue to monitor - Continue Solu-Medrol -Pepcid, Zyrtec - d/c lisinopril and baclofen Acute hypoxic respiratory failure - Aspiration pneumonia, history of recurrent aspiration - Aspiration pneumonitis - Acute flash pulmonary edema - Angioedema - S/p extubation 07/22/2025 Plan -Nephrology consulted for dialysis - Vancomycin discontinued - Meropenem - Escalate to prednisone -DuoNeb, budesonide - PICC line placed - Speech therapy eval, will consider modified barium swallow, on dysphagia level 4 diet, moderately thickened High risk of aspiration - Modified barium swallow, dysphagia level 4 diet, moderately thickened - Speech therapy, aspiration precautions Sepsis -With septic shock, currently resolved, off Levophed - Secondary to UTI, pneumonia urinary tract infection, ESBL E. coli UTI -History of ESBL UTI, continue meropenem - Antibiotics as above Acute encephalopathy, resolving -Secondary to UTI, pneumonia, sepsis Type 1 diabetes mellitus - Moderate dose sliding scale Hypertensive urgency - Norvasc, Coreg Full code Pepcid for GI prophylaxis Heparin for DVT prophylaxis Plan on moved to medical floors, continue IV antibiotics for ESBL E. coli UTI, obstruction precautions, dysphagia level 4 diet PDMP PDMP Reviewed: Not Reviewed Attestations 2 Medical Necessity Statement*: Patient requires position for acute hypoxic respiratory failure, UTI, ESBL E. coli UTI Diagnoses End stage renal disease on dialysis N18.6; Z99.2 Angioedema T78.3XXA Acute hypoxic respiratory failure J96.01 Sepsis A41.9 ARDS (adult respiratory distress syndrome) J80 Aspiration pneumonia J69.0
--- NOTE | 2025-07-25 19:04 | P.PN_ITS ---
Subjective 2 Subjective: no new c/o Medications: Reviewed: Yes Vitals/I&O/Wt Last Vital Signs Temp 98.3 F 07/25/25 15:51 Pulse 97 07/25/25 15:51 Resp 15 07/25/25 15:51 BP 128/68 07/25/25 15:51 Pulse Ox 98 07/25/25 15:51 O2 Del Method Room Air 07/25/25 15:51 O2 Flow Rate 3 07/22/25 15:00 FiO2 30 07/22/25 15:11 07/25/25 07/25/25 07/25/25 06:59 14:59 22:59 Intake Total 120 / 1152 360 / 360 50 / 410 Balance 120 / -1253 360 / 360 50 / 410 Weight last 48 hrs Weight 50.802 kg Weight 51 kg Weight 52 kg Physical Exam 2 Narrative: extubated PEERLA + JVD S1S2 RRR LUngs with juan crackles Abd = soft ,non tender No edema skin - no rash Urinary Catheter Management: Ramos: Cath Placed During This Visit: yes Reason for Continuing Indwelling Catheter: Other Urinary Catheter Date of Insertion: 07/20/25 Urinary Catheter Time of Insertion: 10:00 Data 07/25/25 05:54 07/25/25 05:54 Micro: Microbiology 07/20/25 11:24 Blood Culture - Final Blood NO GROWTH AFTER 5 DAYS 07/20/25 09:08 Blood Culture - Final Blood NO GROWTH AFTER 5 DAYS A&P Assessment and plan 1. End stage renal disease on dialysis: Plan: 1. End-stage renal disease: MWF schedule as outpatient, HD on sunday 2. Angioedema, management per primary team status post steroids Land Benadryl 3. Acute respiratory failure, possible aspiration pneumonia and fluid overload, HD as above, extubated 4. Sepsis secondary to UTI and aspiration pneumonia 5. Acute encephalopathy multifactorial Patient evaluated using audiovisual cart time. Time spent 40 minutes PDMP PDMP Reviewed: Not Reviewed Attestations 2 Medical Necessity Statement*: per medicine Coding Level of Care Code Acute Code for Chg Fwd Diagnoses End stage renal disease on dialysis N18.6; Z99.2
[2025-07-25] MEDS: ATORVASTATIN 10 MG TABLET PO (21:09)
[2025-07-26] VITALS (8 sets, daily range): BP systolic 124–168; BP diastolic 67–89; PULSE 71–89; RESP 14–18; TEMP 36–36.7; O2SAT 95–100
[2025-07-26] MEDS: heparin 5,000 unit/mL INJ 1 mL 5000 UNIT SUBCUT ×2 (00:51→12:16)
[2025-07-26] MEDS: morphine 4 mg/mL SDV 1 mL 2 MG IVP (01:22)
[2025-07-26 05:42] LABS: Hematocrit 33.8 % (37-53); Hemoglobin 10.20 g/dL (11.27-16.99); Mean Corpuscular HGB Conc 30.2 g/dL (30-55); Mean Corpuscular Hemoglobin 28.7 pg (27-33); Mean Corpuscular Volume 95.2 fl (82-101); Nucleated Red Blood Cells % 0 %; Platelet Count 143 10^3/cmm (157-399); Red Blood Count 3.55 10^6/uL (3.85-5.65); White Blood Count 6.37 10^3/uL (3.29-11.43)
[2025-07-26 06:03] LABS: Alanine Aminotransferase 17 U/L (0-41); Albumin Level 3.8 g/dL (3.5-5.2); Alkaline Phosphatase 92 U/L (40-130); Blood Urea Nitrogen 60 mg/dL (6-20); Calcium 8.6 mg/dL (8.5-10.5); Carbon Dioxide 21 mmol/L (22-29); Chloride 99 mmol/L (98-107); Globulin 2.0 g/dL (1.3-4.6); Glucose 157 mg/dL (65-115); Osmolality Calculated 306 mOsm/kg (285-295); Sodium 138 mmol/L (136-145); Total Protein 5.8 g/dL (6.6-8.7)
[2025-07-26 06:09] LABS: Anion Gap 23.2 (5-19); Aspartate Amino Transferase 36 U/L (0-40); Potassium 5.2 mmol/L (3.5-5.1)
--- NOTE | 2025-07-26 15:23 | P.PN_ITS ---
Subjective 2 Subjective: Patient was seen this morning, he is alert, he smiles at me, does not follow commands, Vitals/I&O/Wt Last Vital Signs Temp 97.5 F L 07/26/25 08:00 Pulse 85 07/26/25 11:53 Resp 16 07/26/25 11:53 BP 131/67 07/26/25 11:53 Pulse Ox 100 07/26/25 11:53 O2 Del Method Room Air 07/26/25 11:53 O2 Flow Rate 3 07/22/25 15:00 FiO2 30 07/22/25 15:11 07/26/25 07/26/25 07/26/25 06:59 14:59 22:59 Intake Total 120 / 120 Output Total 250 / 250 Balance -250 / 160 120 / 120 Weight last 48 hrs Weight 50.802 kg Weight 51 kg Physical Exam 2 Const: COMMON NORMALS: no acute distress ORIENTATION/CONSCIOUSNESS: Yes awake; not oriented to person, not oriented to place and not oriented to time Resp: COMMON NORMALS: normal respiratory effort, No retractions, No use of accessory muscles and clear to auscultation bilaterally AUSCULTATION: clear to auscultation bilaterally Cardio: COMMON NORMALS: regular rate, regular rhythm, S1 normal heart sound present and S2 normal heart sound present RATE: regular rate RHYTHM: r egular rhythm HEART SOUNDS: S1 normal heart sound present and S2 normal heart sound present GI: COMMON NORMALS: Normal to inspection, nondistended, normoactive bowel sounds present and non-tender Extremity: COMMON NORMALS: no pedal edema Neuro: SENSORIUM/ORIENTATION: No oriented to person, No oriented to place and No oriented to time Urinary Catheter Management: Ramos: Cath Placed During This Visit: yes Reason for Continuing Indwelling Catheter: Other Urinary Catheter Date of Insertion: 07/20/25 Urinary Catheter Time of Insertion: 10:00 Data 07/26/25 05:08 07/26/25 05:08 Micro: Microbiology 07/20/25 11:24 Blood Culture - Final Blood NO GROWTH AFTER 5 DAYS 07/20/25 09:08 Blood Culture - Final Blood NO GROWTH AFTER 5 DAYS A&P Assessment and plan 1. End stage renal disease on dialysis: 2. Angioedema: 3. Acute hypoxic respiratory failure: 4. Sepsis: 5. ARDS (adult respiratory distress syndrome): 6. Aspiration pneumonia: Plan: Angioedema/allergic reaction - Etiology unclear question, adverse reaction to baclofen which is new medication that he has been on, he is on lisinopril - Found to have difficult airway, diffuse edema of the airway, vocal cords, difficulty with bougie passing through vocal cords - Status post FFP, Pepcid, Benadryl, Solu-Medrol - On examination swelling around the mouth, lips, tongue has resolved Plan -Continue to monitor - De-escalate steroids to prednisone -Pepcid, Zyrtec - d/c lisinopril and baclofen Acute hypoxic respiratory failure - Aspiration pneumonia, history of recurrent aspiration - Aspiration pneumonitis - Acute flash pulmonary edema - Angioedema - S/p extubation 07/22/2025 Plan -Nephrology consulted for dialysis - Vancomycin discontinued - Meropenem IV as inpatient, - Escalate to prednisone -DuoNeb, budesonide - PICC line placed - Speech therapy eval, will consider modified barium swallow, on dysphagia level 4 diet, moderately thickened High risk of aspiration - Modified barium swallow, dysphagia level 4 diet, moderately thickened - Speech therapy, aspiration precautions Sepsis -With septic shock, currently resolved, off Levophed - Secondary to UTI, pneumonia urinary tract infection, ESBL E. coli UTI -History of ESBL UTI, continue meropenem - Antibiotics as above Acute encephalopathy, resolving -Secondary to UTI, pneumonia, sepsis Type 1 diabetes mellitus - Moderate dose sliding scale Hypertensive urgency - Norvasc, Coreg Full code Pepcid for GI prophylaxis Heparin for DVT prophylaxis Plan on moved to medical floors, continue IV antibiotics for ESBL E. coli UTI, obstruction precautions, dysphagia level 4 diet PDMP PDMP Reviewed: Not Reviewed Attestations 2 Medical Necessity Statement*: Patient requires hospital stay for respiratory failure, ESBL E. coli UTI Diagnoses End stage renal disease on dialysis N18.6; Z99.2 Angioedema T78.3XXA Acute hypoxic respiratory failure J96.01 Sepsis A41.9 ARDS (adult respiratory distress syndrome) J80 Aspiration pneumonia J69.0
[2025-07-26] MEDS: polyethylene glycol 3350 Pkt 17 gm PO (18:05)
--- NOTE | 2025-07-26 18:05 | P.PN_ITS ---
Subjective 2 Subjective: no new c/o Medications: Reviewed: Yes Vitals/I&O/Wt Last Vital Signs Temp 96.8 F L 07/26/25 15:27 Pulse 79 07/26/25 15:27 Resp 14 07/26/25 15:27 BP 148/77 07/26/25 15:27 Pulse Ox 98 07/26/25 15:27 O2 Del Method Room Air 07/26/25 15:27 O2 Flow Rate 3 07/22/25 15:00 FiO2 30 07/22/25 15:11 07/26/25 07/26/25 07/26/25 06:59 14:59 22:59 Intake Total 120 / 120 60 / 180 Output Total 250 / 250 200 / 200 Balance -250 / 160 120 / 120 -140 / -20 Weight last 48 hrs Weight 50.802 kg Physical Exam 2 Narrative: extubated PEERLA + JVD S1S2 RRR LUngs with juan crackles Abd = soft ,non tender No edema skin - no rash Urinary Catheter Management: Ramos: Cath Placed During This Visit: yes Reason for Continuing Indwelling Catheter: Other Urinary Catheter Date of Insertion: 07/20/25 Urinary Catheter Time of Insertion: 10:00 Data 07/27/25 05:13 07/27/25 05:13 A&P Assessment and plan 1. End stage renal disease on dialysis: Plan: 1. End-stage renal disease: MWF schedule as outpatient, HD on sunday 2. Angioedema, management per primary team status post steroids Land Benadryl 3. Acute respiratory failure, possible aspiration pneumonia and fluid overload, HD as above, extubated 4. Sepsis secondary to UTI and aspiration pneumonia 5. Acute encephalopathy multifactorial 6. hyperkalemia , will give kayeylate Patient evaluated using audiovisual cart time. Time spent 40 minutes PDMP PDMP Reviewed: Not Reviewed Attestations 2 Medical Necessity Statement*: per medicine Coding Level of Care Code Critical Care >/= 30 minutes Diagnoses End stage renal disease on dialysis N18.6; Z99.2
[2025-07-26] MEDS: ATORVASTATIN 10 MG TABLET PO (22:02)
[2025-07-27] VITALS (8 sets, daily range): BP systolic 118–164; BP diastolic 50–91; PULSE 71–98; RESP 15–20; TEMP 36.3–36.8; O2SAT 94–99
[2025-07-27] MEDS: heparin 5,000 unit/mL INJ 1 mL 5000 UNIT SUBCUT (02:00)
[2025-07-27] MEDS: polyethylene glycol 3350 Pkt 17 gm PO (04:34)
[2025-07-27 05:28] LABS: Hematocrit 34.5 % (37-53); Hemoglobin 10.80 g/dL (11.27-16.99); Mean Corpuscular HGB Conc 31.3 g/dL (30-55); Mean Corpuscular Hemoglobin 29.0 pg (27-33); Mean Corpuscular Volume 92.5 fl (82-101); Nucleated Red Blood Cells % 0 %; Platelet Count 204 10^3/cmm (157-399); Red Blood Count 3.73 10^6/uL (3.85-5.65); White Blood Count 5.25 10^3/uL (3.29-11.43)
[2025-07-27 05:53] LABS: Alanine Aminotransferase 18 U/L (0-41); Albumin Level 3.8 g/dL (3.5-5.2); Alkaline Phosphatase 92 U/L (40-130); Anion Gap 23.0 (5-19); Aspartate Amino Transferase 34 U/L (0-40); Blood Urea Nitrogen 71 mg/dL (6-20); Calcium 9.5 mg/dL (8.5-10.5); Carbon Dioxide 23 mmol/L (22-29); Chloride 99 mmol/L (98-107); Globulin 2.9 g/dL (1.3-4.6); Glucose 129 mg/dL (65-115); Osmolality Calculated 313 mOsm/kg (285-295); Potassium 5.0 mmol/L (3.5-5.1); Sodium 140 mmol/L (136-145); Total Protein 6.7 g/dL (6.6-8.7)
--- NOTE | 2025-07-27 17:09 | P.PN_ITS ---
Subjective 2 Subjective: Patient was seen and morning, currently alert awake, he is for himself this morning he smiles at me gives me the thumbs up Vitals/I&O/Wt Last Vital Signs Temp 97.4 F L 07/27/25 16:00 Pulse 98 07/27/25 16:00 Resp 20 H 07/27/25 16:00 BP 150/50 07/27/25 16:00 Pulse Ox 98 07/27/25 16:00 O2 Del Method Room Air 07/27/25 16:00 O2 Flow Rate 3 07/22/25 15:00 FiO2 30 07/22/25 15:11 07/27/25 07/27/25 07/27/25 06:59 14:59 22:59 Intake Total 1240 / 1240 Output Total 150 / 350 1684 / 1684 Balance -150 / -170 -444 / -444 Weight last 48 hrs Weight 52.1 kg Physical Exam 2 Const: COMMON NORMALS: no acute distress and patient oriented x3 Resp: COMMON NORMALS: normal respiratory effort, No retractions, No use of accessory muscles and clear to auscultation bilaterally AUSCULTATION: clear to auscultation bilaterally Cardio: COMMON NORMALS: regular rate, regular rhythm, S1 normal heart sound present and S2 normal heart sound present RATE: regular rate RHYTHM: r egular rhythm HEART SOUNDS: S1 normal heart sound present and S2 normal heart sound present GI: COMMON NORMALS: Normal to inspection, nondistended, normoactive bowel sounds present and non-tender Extremity: COMMON NORMALS: no pedal edema Neuro: COMMON NORMALS: patient oriented x3 Psych: COMMON NORMALS: mental status grossly normal Urinary Catheter Management: Ramos: Cath Placed During This Visit: yes Reason for Continuing Indwelling Catheter: Other Urinary Catheter Date of Insertion: 07/20/25 Urinary Catheter Time of Insertion: 10:00 Data 07/27/25 05:13 07/27/25 05:13 A&P Assessment and plan 1. End stage renal disease on dialysis: 2. Angioedema: 3. Acute hypoxic respiratory failure: 4. Sepsis: 5. ARDS (adult respiratory distress syndrome): 6. Aspiration pneumonia: Plan: Angioedema/allergic reaction - Etiology unclear question, adverse reaction to baclofen which is new medication that he has been on, he is on lisinopril - Found to have difficult airway, diffuse edema of the airway, vocal cords, difficulty with bougie passing through vocal cords - Status post FFP, Pepcid, Benadryl, Solu-Medrol - On examination swelling around the mouth, lips, tongue has resolved Plan -Continue to monitor - De-escalate steroids to prednisone -Pepcid, Zyrtec - d/c lisinopril and baclofen Acute hypoxic respiratory failure - Aspiration pneumonia, history of recurrent aspiration - Aspiration pneumonitis - Acute flash pulmonary edema - Angioedema - S/p extubation 07/22/2025 Plan -Nephrology consulted for dialysis - Vancomycin discontinued - Meropenem IV as inpatient, - Escalate to prednisone -DuoNeb, budesonide - PICC line placed - Speech therapy eval, will consider modified barium swallow, on dysphagia level 4 diet, moderately thickened High risk of aspiration - Modified barium swallow, dysphagia level 4 diet, moderately thickened - Speech therapy, aspiration precautions Sepsis -With septic shock, currently resolved, off Levophed - Secondary to UTI, pneumonia urinary tract infection, ESBL E. coli UTI -History of ESBL UTI, continue meropenem - Antibiotics as above Acute encephalopathy, resolving -Secondary to UTI, pneumonia, sepsis Type 1 diabetes mellitus - Moderate dose sliding scale Hypertensive urgency - Norvasc, Coreg Full code Pepcid for GI prophylaxis Heparin for DVT prophylaxis Plan on moved to medical floors, continue IV antibiotics for ESBL E. coli UTI, obstruction precautions, dysphagia level 4 diet PDMP PDMP Reviewed: Not Reviewed Attestations 2 Medical Necessity Statement*: Patient requires hospital due to respiratory failure, ESBL E. coli UTI Diagnoses End stage renal disease on dialysis N18.6; Z99.2 Angioedema T78.3XXA Acute hypoxic respiratory failure J96.01 Sepsis A41.9 ARDS (adult respiratory distress syndrome) J80 Aspiration pneumonia J69.0
[2025-07-27] MEDS: ATORVASTATIN 10 MG TABLET PO (21:21)
[2025-07-28] VITALS (10 sets, daily range): BP systolic 100–143; BP diastolic 48–83; PULSE 81–90; RESP 13–18; TEMP 36.4–36.8; O2SAT 91–100
[2025-07-28] MEDS: heparin 5,000 unit/mL INJ 1 mL 5000 UNIT SUBCUT ×2 (02:03→13:22)
[2025-07-28] MEDS: polyethylene glycol 3350 Pkt 17 gm PO (04:15)
[2025-07-28 05:17] LABS: Hematocrit 30.0 % (37-53); Hemoglobin 9.60 g/dL (11.27-16.99); Mean Corpuscular HGB Conc 32.0 g/dL (30-55); Mean Corpuscular Hemoglobin 29.3 pg (27-33); Mean Corpuscular Volume 91.5 fl (82-101); Nucleated Red Blood Cells % 0 %; Platelet Count 187 10^3/cmm (157-399); Red Blood Count 3.28 10^6/uL (3.85-5.65); White Blood Count 6.66 10^3/uL (3.29-11.43)
[2025-07-28 05:42] LABS: Alanine Aminotransferase 15 U/L (0-41); Albumin Level 3.9 g/dL (3.5-5.2); Alkaline Phosphatase 97 U/L (40-130); Anion Gap 16.5 (5-19); Aspartate Amino Transferase 29 U/L (0-40); Blood Urea Nitrogen 40 mg/dL (6-20); Calcium 9.1 mg/dL (8.5-10.5); Carbon Dioxide 29 mmol/L (22-29); Chloride 101 mmol/L (98-107); Globulin 2.2 g/dL (1.3-4.6); Glucose 136 mg/dL (65-115); Osmolality Calculated 306 mOsm/kg (285-295); Potassium 4.5 mmol/L (3.5-5.1); Sodium 142 mmol/L (136-145); Total Protein 6.1 g/dL (6.6-8.7)
--- NOTE | 2025-07-28 10:18 | P.PN_ITS ---
Subjective 2 Subjective: on room air Medications: Reviewed: Yes Vitals/I&O/Wt Last Vital Signs Temp 97.6 F 07/28/25 07:08 Pulse 81 07/28/25 07:08 Resp 18 07/28/25 07:08 BP 110/78 07/28/25 08:23 Pulse Ox 98 07/28/25 07:08 O2 Del Method Room Air 07/28/25 07:08 O2 Flow Rate 3 07/22/25 15:00 FiO2 30 07/22/25 15:11 07/27/25 07/28/25 07/28/25 22:59 06:59 14:59 Intake Total 240 / 1480 200 / 1680 Output Total 50 / 1734 Balance 240 / -204 150 / -54 Weight last 48 hrs Weight 50.485 kg Weight 52.1 kg Physical Exam 2 Narrative: no room air PEERLA + JVD S1S2 RRR LUngs with juan crackles Abd, soft ,non tender No edema skin - no rash Urinary Catheter Management: Ramos: Cath Placed During This Visit: yes Reason for Continuing Indwelling Catheter: Assist healing open wound Urinary Catheter Date of Insertion: 07/20/25 Urinary Catheter Time of Insertion: 10:00 Data 07/29/25 05:23 07/29/25 05:23 A&P Assessment and plan 1. End stage renal disease on dialysis: Plan: 1. End-stage renal disease: MWF schedule 2. Angioedema, management per primary team status post steroids and Benadryl 3. Acute respiratory failure, possible aspiration pneumonia and fluid overload, HD as above, extubated 4. Sepsis secondary to UTI and aspiration pneumonia 5. Acute encephalopathy multifactorial 6. hyperkalemia , will give kayeylate Patient evaluated using audiovisual cart time. Time spent 40 minutes PDMP PDMP Reviewed: Not Reviewed Attestations 2 Medical Necessity Statement*: per medicine Coding Level of Care Code Acute Code for Chg Fwd Diagnoses End stage renal disease on dialysis N18.6; Z99.2
--- NOTE | 2025-07-28 15:18 | P.PN_ITS ---
Subjective 2 Subjective: Patient was seen this morning, alert to person, not to place, to time, he smiles at me, watching TV Vitals/I&O/Wt Last Vital Signs Temp 97.5 F L 07/28/25 12:00 Pulse 90 07/28/25 12:00 Resp 18 07/28/25 12:00 BP 117/63 07/28/25 12:00 Pulse Ox 91 07/28/25 11:36 O2 Del Method Room Air 07/28/25 11:36 O2 Flow Rate 3 07/22/25 15:00 FiO2 30 07/22/25 15:11 07/28/25 07/28/25 07/28/25 06:59 14:59 22:59 Intake Total 200 / 1680 360 / 360 Output Total 50 / 1734 Balance 150 / -54 360 / 360 Weight last 48 hrs Weight 50.485 kg Weight 52.1 kg Physical Exam 2 Const: COMMON NORMALS: no acute distress Resp: COMMON NORMALS: normal respiratory effort, No retractions, No use of accessory muscles and clear to auscultation bilaterally AUSCULTATION: clear to auscultation bilaterally Cardio: COMMON NORMALS: regular rate, regular rhythm, S1 normal heart sound present and S2 normal heart sound present RATE: regular rate RHYTHM: r egular rhythm HEART SOUNDS: S1 normal heart sound present and S2 normal heart sound present GI: COMMON NORMALS: Normal to inspection, nondistended, normoactive bowel sounds present and non-tender Extremity: COMMON NORMALS: no calf tenderness and no pedal edema Psych: COMMON NORMALS: mental status grossly normal Urinary Catheter Management: Ramos: Cath Placed During This Visit: yes Reason for Continuing Indwelling Catheter: Assist healing open wound Urinary Catheter Date of Insertion: 07/20/25 Urinary Catheter Time of Insertion: 10:00 Data 07/28/25 05:04 07/28/25 05:04 A&P Assessment and plan 1. End stage renal disease on dialysis: 2. Angioedema: 3. Acute hypoxic respiratory failure: 4. Sepsis: 5. ARDS (adult respiratory distress syndrome): 6. Aspiration pneumonia: Plan: Angioedema/allergic reaction - Etiology unclear question, adverse reaction to baclofen which is new medication that he has been on, he is on lisinopril - Found to have difficult airway, diffuse edema of the airway, vocal cords, difficulty with bougie passing through vocal cords - Status post FFP, Pepcid, Benadryl, Solu-Medrol - On examination swelling around the mouth, lips, tongue has resolved Plan -Continue to monitor - De-escalate steroids to prednisone -Pepcid, Zyrtec - d/c lisinopril and baclofen Acute hypoxic respiratory failure - Aspiration pneumonia, history of recurrent aspiration - Aspiration pneumonitis - Acute flash pulmonary edema - Angioedema - S/p extubation 07/22/2025 Plan -Nephrology consulted for dialysis - Vancomycin discontinued - Meropenem IV as inpatient, - Escalate to prednisone -DuoNeb, budesonide - PICC line placed - Speech therapy eval, will consider modified barium swallow, on dysphagia level 4 diet, moderately thickened High risk of aspiration - Modified barium swallow, dysphagia level 4 diet, moderately thickened - Speech therapy, aspiration precautions Sepsis -With septic shock, currently resolved, off Levophed - Secondary to UTI, pneumonia urinary tract infection, ESBL E. coli UTI -History of ESBL UTI, continue meropenem - Antibiotics as above Acute encephalopathy, resolving -Secondary to UTI, pneumonia, sepsis Type 1 diabetes mellitus - Moderate dose sliding scale Hypertensive urgency - Norvasc, Coreg Full code Pepcid for GI prophylaxis Heparin for DVT prophylaxis Plan on moved to medical floors, continue IV antibiotics for ESBL E. coli UTI, obstruction precautions, dysphagia level 4 diet PDMP PDMP Reviewed: Not Reviewed Attestations 2 Medical Necessity Statement*: Patient requires hospitalization for ESBL UTI, pneumonia, respiratory failure Diagnoses End stage renal disease on dialysis N18.6; Z99.2 Angioedema T78.3XXA Acute hypoxic respiratory failure J96.01 Sepsis A41.9 ARDS (adult respiratory distress syndrome) J80 Aspiration pneumonia J69.0
[2025-07-28] MEDS: ATORVASTATIN 10 MG TABLET PO (21:01)
[2025-07-29] VITALS (12 sets, daily range): BP systolic 106–149; BP diastolic 54–92; PULSE 68–101; RESP 16–18; TEMP 36.4–37.1; O2SAT 95–100
[2025-07-29] MEDS: heparin 5,000 unit/mL INJ 1 mL 5000 UNIT SUBCUT (00:12)
[2025-07-29 05:37] LABS: Hematocrit 29.2 % (37-53); Hemoglobin 9.40 g/dL (11.27-16.99); Mean Corpuscular HGB Conc 32.2 g/dL (30-55); Mean Corpuscular Hemoglobin 29.6 pg (27-33); Mean Corpuscular Volume 91.8 fl (82-101); Nucleated Red Blood Cells % 0 %; Platelet Count 176 10^3/cmm (157-399); Red Blood Count 3.18 10^6/uL (3.85-5.65); White Blood Count 6.89 10^3/uL (3.29-11.43)
[2025-07-29 05:48] LABS: Alanine Aminotransferase 13 U/L (0-41); Albumin Level 3.5 g/dL (3.5-5.2); Alkaline Phosphatase 86 U/L (40-130); Anion Gap 18.0 (5-19); Aspartate Amino Transferase 25 U/L (0-40); Blood Urea Nitrogen 56 mg/dL (6-20); Calcium 9.3 mg/dL (8.5-10.5); Carbon Dioxide 26 mmol/L (22-29); Chloride 100 mmol/L (98-107); Globulin 2.5 g/dL (1.3-4.6); Glucose 80 mg/dL (65-115); Osmolality Calculated 302 mOsm/kg (285-295); Potassium 5.0 mmol/L (3.5-5.1); Sodium 139 mmol/L (136-145); Total Protein 6.0 g/dL (6.6-8.7)
[2025-07-29] MEDS: polyethylene glycol 3350 Pkt 17 gm PO (05:56)
[2025-07-29] MEDS: heparin, porcine 1,000 unit/mL INJ 10 mL 10000 UNIT INTRACATH (09:42)
[2025-07-29] MEDS: heparin, porcine 1,000 unit/mL INJ 10 mL 1000 UNIT IV (09:42)
--- NOTE | 2025-07-29 10:57 | P.PN_ITS ---
Subjective 2 Subjective: getting HD Medications: Reviewed: Yes Vitals/I&O/Wt Last Vital Signs Temp 98.8 F 07/29/25 08:49 Pulse 85 07/29/25 08:49 Resp 16 07/29/25 08:49 BP 111/57 07/29/25 08:49 Pulse Ox 97 07/29/25 07:53 O2 Del Method Room Air 07/29/25 08:51 O2 Flow Rate 3 07/22/25 15:00 FiO2 30 07/22/25 15:11 07/28/25 07/29/25 07/29/25 22:59 06:59 14:59 Intake Total 390 / 750 380 / 380 Output Total 500 / 500 100 / 600 150 / 150 Balance -110 / 250 -100 / 150 230 / 230 Weight last 48 hrs Weight 54.295 kg Weight 50.485 kg Weight 52.1 kg Physical Exam 2 Narrative: no room air PEERLA + JVD S1S2 RRR LUngs with juan crackles Abd, soft ,non tender No edema skin - no rash Urinary Catheter Management: Ramos: Cath Placed During This Visit: yes Reason for Continuing Indwelling Catheter: Chronic Indwelling Urinary Catheter on Admission Urinary Catheter Date of Insertion: 07/20/25 Urinary Catheter Time of Insertion: 10:00 Data 07/29/25 05:23 07/29/25 05:23 A&P Assessment and plan 1. End stage renal disease on dialysis: Plan: 1. End-stage renal disease: MWF schedule 2. Angioedema, management per primary team status post steroids and Benadryl 3. Acute respiratory failure, possible aspiration pneumonia and fluid overload, HD as above, extubated 4. Sepsis secondary to UTI and aspiration pneumonia 5. Acute encephalopathy multifactorial 6. hyperkalemia , s/p kayeylate Patient evaluated using audiovisual cart time. Time spent 40 minutes PDMP PDMP Reviewed: Not Reviewed Attestations 2 Medical Necessity Statement*: per [facility] Coding Level of Care Code Acute Code for Chg Fwd Diagnoses End stage renal disease on dialysis N18.6; Z99.2
--- NOTE | 2025-07-29 13:53 | P.PN_ITS ---
Subjective 2 Subjective: Patient was seen this morning, at dialysis, he is alert, awake, he tells me he does not like his dysphagia diet Vitals/I&O/Wt Last Vital Signs Temp 97.8 F 07/29/25 12:00 Pulse 96 07/29/25 12:00 Resp 18 07/29/25 12:00 BP 106/92 07/29/25 12:00 Pulse Ox 96 07/29/25 11:55 O2 Del Method Room Air 07/29/25 11:55 O2 Flow Rate 3 07/22/25 15:00 FiO2 30 07/22/25 15:11 07/28/25 07/29/25 07/29/25 22:59 06:59 14:59 Intake Total 390 / 750 1270 / 1270 Output Total 500 / 500 100 / 600 1600 / 1600 Balance -110 / 250 -100 / 150 -330 / -330 Weight last 48 hrs Weight 51.6 kg Weight 54.295 kg Weight 50.485 kg Physical Exam 2 Const: COMMON NORMALS: no acute distress Resp: COMMON NORMALS: normal respiratory effort, No retractions, No use of accessory muscles and clear to auscultation bilaterally AUSCULTATION: clear to auscultation bilaterally Cardio: COMMON NORMALS: regular rate, regular rhythm, S1 normal heart sound present and S2 normal heart sound present RATE: regular rate RHYTHM: r egular rhythm HEART SOUNDS: S1 normal heart sound present and S2 normal heart sound present GI: COMMON NORMALS: Normal to inspection, nondistended, normoactive bowel sounds present and non-tender Extremity: COMMON NORMALS: no pedal edema Urinary Catheter Management: Ramos: Cath Placed During This Visit: yes Reason for Continuing Indwelling Catheter: Chronic Indwelling Urinary Catheter on Admission Urinary Catheter Date of Insertion: 07/20/25 Urinary Catheter Time of Insertion: 10:00 Data 07/29/25 05:23 07/29/25 05:23 A&P Assessment and plan 1. End stage renal disease on dialysis: 2. Angioedema: 3. Acute hypoxic respiratory failure: 4. Sepsis: 5. ARDS (adult respiratory distress syndrome): 6. Aspiration pneumonia: Plan: Angioedema/allergic reaction - Etiology unclear question, adverse reaction to baclofen which is new medication that he has been on, he is on lisinopril - Found to have difficult airway, diffuse edema of the airway, vocal cords, difficulty with bougie passing through vocal cords - Status post FFP, Pepcid, Benadryl, Solu-Medrol - On examination swelling around the mouth, lips, tongue has resolved Plan -Continue to monitor - De-escalate steroids to prednisone, prednisone burst -Pepcid, Zyrtec - d/c lisinopril and baclofen Acute hypoxic respiratory failure - Aspiration pneumonia, history of recurrent aspiration - Aspiration pneumonitis - Acute flash pulmonary edema - Angioedema - S/p extubation 07/22/2025 Plan -Nephrology consulted for dialysis - Vancomycin discontinued - Meropenem IV as inpatient, completed - Escalate to prednisone -DuoNeb, budesonide - PICC line placed, will remove - Speech therapy eval, will consider modified barium swallow, on dysphagia level 4 diet, moderately thickened High risk of aspiration - Modified barium swallow, dysphagia level 4 diet, moderately thickened - Speech therapy, aspiration precautions Sepsis -With septic shock, currently resolved, off Levophed - Secondary to UTI, pneumonia urinary tract infection, ESBL E. coli UTI -History of ESBL UTI, continue meropenem, completed treatment as inpatient - Antibiotics as above Acute encephalopathy, resolving -Secondary to UTI, pneumonia, sepsis Type 1 diabetes mellitus - Moderate dose sliding scale Hypertensive urgency - Norvasc, Coreg Full code Pepcid for GI prophylaxis Heparin for DVT prophylaxis Plan awaiting placement PDMP PDMP Reviewed: Not Reviewed Attestations 2 Medical Necessity Statement*: Patient requires hospitalization for awaiting placement Diagnoses End stage renal disease on dialysis N18.6; Z99.2 Angioedema T78.3XXA Acute hypoxic respiratory failure J96.01 Sepsis A41.9 ARDS (adult respiratory distress syndrome) J80 Aspiration pneumonia J69.0
[2025-07-29] MEDS: ATORVASTATIN 10 MG TABLET PO (21:20)
[2025-07-30] VITALS (9 sets, daily range): BP systolic 106–139; BP diastolic 56–90; PULSE 83–94; RESP 16–19; TEMP 36.3–36.8; O2SAT 96–100
[2025-07-30] MEDS: heparin 5,000 unit/mL INJ 1 mL 5000 UNIT SUBCUT ×2 (00:16→12:59)
--- NOTE | 2025-07-30 13:28 | P.PN_ITS ---
Subjective 2 Subjective: Patient was seen and morning, he smiles at me, tells me he wants to be covered with blankets, no complaints Vitals/I&O/Wt Last Vital Signs Temp 97.4 F L 07/30/25 12:02 Pulse 93 07/30/25 12:02 Resp 16 07/30/25 12:02 BP 125/70 07/30/25 12:02 Pulse Ox 96 07/30/25 12:02 O2 Del Method Room Air 07/30/25 12:02 O2 Flow Rate 3 07/22/25 15:00 FiO2 30 07/22/25 15:11 07/29/25 07/30/25 07/30/25 22:59 06:59 14:59 Intake Total 660 / 1930 1989 120 / 120 Output Total 650 / 2250 150 / 2400 Balance 10 / 320 -90 / -410 120 / 120 Weight last 48 hrs Weight 51.71 kg Weight 51.6 kg Weight 54.295 kg Physical Exam 2 Const: COMMON NORMALS: no acute distress ORIENTATION/CONSCIOUSNESS: Yes awake and Yes oriented to person Resp: COMMON NORMALS: normal respiratory effort, No retractions, No use of accessory muscles and clear to auscultation bilaterally AUSCULTATION: clear to auscultation bilaterally Cardio: COMMON NORMALS: regular rate, regular rhythm, S1 normal heart sound present and S2 normal heart sound present RATE: regular rate RHYTHM: r egular rhythm HEART SOUNDS: S1 normal heart sound present and S2 normal heart sound present GI: COMMON NORMALS: Normal to inspection, nondistended, normoactive bowel sounds present and non-tender Extremity: COMMON NORMALS: no pedal edema Neuro: SENSORIUM/ORIENTATION: Yes oriented to person Psych: COMMON NORMALS: mental status grossly normal Urinary Catheter Management: Ramos: Cath Placed During This Visit: yes Reason for Continuing Indwelling Catheter: Chronic Indwelling Urinary Catheter on Admission Urinary Catheter Date of Insertion: 07/20/25 Urinary Catheter Time of Insertion: 10:00 Data 07/29/25 05:23 07/29/25 05:23 A&P Assessment and plan 1. End stage renal disease on dialysis: 2. Angioedema: 3. Acute hypoxic respiratory failure: 4. Sepsis: 5. ARDS (adult respiratory distress syndrome): 6. Aspiration pneumonia: Plan: Angioedema/allergic reaction - Etiology unclear question, adverse reaction to baclofen which is new medication that he has been on, he is on lisinopril - Found to have difficult airway, diffuse edema of the airway, vocal cords, difficulty with bougie passing through vocal cords - Status post FFP, Pepcid, Benadryl, Solu-Medrol - On examination swelling around the mouth, lips, tongue has resolved Plan -Continue to monitor - De-escalate steroids to prednisone, prednisone burst -Pepcid, Zyrtec - d/c lisinopril and baclofen Acute hypoxic respiratory failure - Aspiration pneumonia, history of recurrent aspiration - Aspiration pneumonitis - Acute flash pulmonary edema - Angioedema - S/p extubation 07/22/2025 Plan -Nephrology consulted for dialysis - Vancomycin discontinued - Meropenem IV as inpatient, completed - Escalate to prednisone -DuoNeb, budesonide - PICC line placed, will remove - Speech therapy eval, will consider modified barium swallow, on dysphagia level 4 diet, moderately thickened High risk of aspiration - Modified barium swallow, dysphagia level 4 diet, moderately thickened - Speech therapy, aspiration precautions Sepsis -With septic shock, currently resolved, off Levophed - Secondary to UTI, pneumonia urinary tract infection, ESBL E. coli UTI -History of ESBL UTI, continue meropenem, completed treatment as inpatient - Antibiotics as above Acute encephalopathy, resolving -Secondary to UTI, pneumonia, sepsis Type 1 diabetes mellitus - Moderate dose sliding scale Hypertensive urgency - Norvasc, Coreg Full code Pepcid for GI prophylaxis Heparin for DVT prophylaxis Plan awaiting placement PDMP PDMP Reviewed: Not Reviewed Attestations 2 Medical Necessity Statement*: Patient requiring placement Diagnoses End stage renal disease on dialysis N18.6; Z99.2 Angioedema T78.3XXA Acute hypoxic respiratory failure J96.01 Sepsis A41.9 ARDS (adult respiratory distress syndrome) J80 Aspiration pneumonia J69.0
[2025-07-30] MEDS: ATORVASTATIN 10 MG TABLET PO (21:58)
[2025-07-31] VITALS (7 sets, daily range): BP systolic 109–142; BP diastolic 56–77; PULSE 70–87; RESP 16–18; TEMP 36.1–37.2; O2SAT 96–97
[2025-07-31] MEDS: heparin 5,000 unit/mL INJ 1 mL 5000 UNIT SUBCUT ×2 (00:43→14:40)
[2025-07-31] MEDS: polyethylene glycol 3350 Pkt 17 gm PO (05:18)
--- NOTE | 2025-07-31 11:26 | PC.SLP ---
Pt currently at Dialysis for most of the day and then planned to discharge upon return. No speech intervention provided.
--- NOTE | 2025-07-31 12:44 | PM.DCS ---
Discharge Providers Date of Admission: 07/20/25 10:25 Date of Discharge: July 31, 2025 Attending Provider at Admission: Enrique Valdes MD Attending Provider at Discharge: Enrique Valdes MD Primary Care Provider: Valente Harding DO Diagnoses at Discharge Discharge Diagnosis 1. End stage renal disease on dialysis: 2. Angioedema: 3. Acute hypoxic respiratory failure: 4. Sepsis: 5. ARDS (adult respiratory distress syndrome): 6. Aspiration pneumonia: Reason for Visit Reason for Visit: ams - facial angioedema Hospital Course Hospital Course Tyrese Leach is a 55 year old male with history of HTN, ESRD on dialysis, and type 1 diabetes who presents with worsening altered mental status. He was intubated, and history was obtained from caregivers. He has a one day history of somnolence and confusion beginning after breakfast. He was noted to be increasingly somnolent throughout the day when checked at mealtimes with opening eye responses at lunch and no opening eye response at dinner. He was given two Glucerna doses during the day, and blood sugar was measured at 126. He was brought to the ER whose primary concern was to get him dialysis. He was discharged stable with no evidence of CVA, hemorrhage, infection, EKG ST changes, nor arrhythmias. Patient was brought back to the ER by caregivers due to worsening AMS and swelling of the mouth and tongue. On arrival patient had acute respiratory distress, concern for angioedema, was intubated without difficulty, with the need for anesthesia support, concerns for diffuse edema of the airway and the vocal cords, bougie passing through cords was difficult, currently ET tube 1.5 cm above the kalani, currently patient is intubated, sedated on mechanical ventilation, Patient was admitted to [facility] for angioedema/allergic reaction, to lisinopril and possibly baclofen, intubated, status post FFP/Pepcid/Benadryl/Solu-Medrol, patient was extubated to room air - Lisinopril, baclofen discontinued on discharge Acute hypoxic respiratory failure, second aspiration ammonia, aspiration pneumonitis, acute flash pulmonary edema, angioedema, intubated, placed on mechanical ventilation, status post extubation 07/22/2025. Patient deemed inpatient dialysis, IV steroids, IV antibiotics, overall clinically improved. Completed antibiotic therapy, IV steroids as inpatient, resume outpatient dialysis High risk of aspiration - Underwent a modified barium swallow, placed on dysphagia level 4 diet, moderately thickened - Monitored as inpatient, no aspiration events - Will be discharged on dysphagia level 4 diet, moderately thickened, discharged to alf facility - If patient does have recurrent aspiration episodes he might require hospice versus PEG tube placement For UTI secondary to ESBL E. coli UTI, completed meropenem For fluid overload, required inpatient dialysis, will include improved resume dialysis as outpatient Physical Exam Const: COMMON NORMALS: no acute distress Eye: COMMON NORMALS: Equal, round and reactive pupils present PUPIL: Yes Equal, round and reactive pupils present Neck/C-Spine: COMMON NORMALS: no lymphadenopathy Resp: COMMON NORMALS: normal respiratory effort, No retractions, No use of accessory muscles and clear to auscultation bilaterally AUSCULTATION: clear to auscultation bilaterally Cardio: COMMON NORMALS: regular rate, regular rhythm, S1 normal heart sound present and S2 normal heart sound present RATE: regular rate RHYTHM: regular rhythm HEART SOUNDS: S1 normal heart sound present and S2 normal heart sound present GI: COMMON NORMALS: Normal to inspection, nondistended, normoactive bowel sounds present and non-tender Extremity: COMMON NORMALS: no pedal edema Urinary Catheter Management: Ramos: Cath Placed During This Visit: yes Reason for Continuing Indwelling Catheter: Required Immobilization for Trauma or Surgery or Anesthesia Urinary Catheter Date of Insertion: 07/20/25 Urinary Catheter Time of Insertion: 10:00 Discharge Data Studies Completed and Pending Completed Studies During Hospitalization Category Date Time Status CT chest abdomen pelvis [[place] [id number] Cat Scan 07/20/25 13:00 Completed ] Routine CXRP [XR chest 1V portable [id number]] Routine Exams 07/20/25 12:30 Completed FL barium swallow modifd [id number] Routine Exams 07/24/25 18:58 Completed XR chest 1V portable [id number] Routine Exams 07/21/25 07:00 Completed XR chest 1V portable [id number] Routine Exams 07/22/25 07:00 Completed XR chest 1V portable [id number] Stat Exams 07/20/25 09:02 Completed XR chest 1V portable [id number] Stat Exams 07/20/25 17:06 Completed Radiology Impressions Chest/Abdomen/Pelvis CT 07/20/25 13:00 IMPRESSION: 1. Small amounts of bilateral mostly dependent pneumonitis and/or edema with some atelectasis is all considerably improved. 2. No other acute thoracic findings. 3. Additional details as above. IMPRESSION: 1. Again noted are compression deformities of the L2 and L3 vertebral bodies, both containing osteoplasty cement. However, the degenerative changes with associated fragmentation and osseous irregularity have increased. This raises the possibility of pathologic fractures or underlying discitis/osteomyelitis at this level. Recommend contrast-enhanced MRI of this. 2. Areas of liver heterogeneity are suspected. This may simply be artifact, but liver neoplasm should be considered. Recommend contrast-enhanced MRI of this. 3. Due to lack of oral contrast and the patient's thin habitus, bowel and adjacent structures are closely packed together, so are suboptimally evaluated. There is no obvious acute pathology involving bowel or these adjacent structures, but given this limitation, subtle acute pathology involving bowel and these adjacent structures, such as inflammation, cannot be entirely excluded on the basis of this examination. If there is clinical concern of such, a repeat CT scan with adequate bowel contrast might offer clarification. 4. No other acute abdominal or pelvic findings identified, but evaluation for such is markedly limited. 5. Additional details as above. Chest X-Ray 07/22/25 07:00 IMPRESSION: No significant change. Modified Barium Swallow 07/24/25 18:58 Impression: 1. Abnormal tongue movements which propelled food and liquids into the hypopharynx. 2. Slight penetration with liquids but no aspiration. 3. No penetration or aspiration with food items. 4. Poor esophageal motility. Laboratory Results WBC 6.89 10^3/uL (3.29-11.43) 07/29/25 05:23 RBC 3.18 10^6/uL (3.85-5.65) L 07/29/25 05:23 Hgb 9.40 g/dL (11.27-16.99) L 07/29/25 05:23 Hct 29.2 % (37-53) L 07/29/25 05:23 MCV 91.8 fl (82-101) 07/29/25 05:23 MCH 29.6 pg (27-33) 07/29/25 05:23 MCHC 32.2 g/dL (30-55) 07/29/25 05:23 RDW 14.8 % (12.1-15.1) 07/29/25 05:23 Plt Count 176 10^3/cmm (157-399) 07/29/25 05:23 MPV 10.7 fL (7.4-10.4) H 07/29/25 05:23 Neut % (Auto) 67.6 % 07/29/25 05:23 Lymph % (Auto) 22.2 % 07/29/25 05:23 [place] % (Auto) 8.6 % 07/29/25 05:23 Eos % (Auto) 1.2 % 07/29/25 05:23 Baso % (Auto) 0.0 % 07/29/25 05:23 Neut # (Auto) 4.66 10^3/uL (1.8-7.7) 07/29/25 05:23 Lymph # (Auto) 1.5 10^3/uL (0.8-4.8) 07/29/25 05:23 [place] # (Auto) 0.6 10^3/uL (0.2-0.9) 07/29/25 05:23 Eos # (Auto) 0.1 10^3/uL (0.0-0.8) 07/29/25 05:23 Baso # (Auto) 0.0 10^3/uL (0.0-0.1) 07/29/25 05:23 Nucleated RBC % (auto) 0 % 07/29/25 05:23 Nucleated RBCs # 0.0 /100WBC 07/29/25 05:23 PT 13.90 SECONDS (12.1-14.9) 07/20/25 09:08 INR 1.00 (0.8-1.2) 07/20/25 09:08 APTT 34.9 SECONDS (23.9-36.7) 07/20/25 09:08 Specimen Type Arterial 07/23/25 04:14 Sample Site Radial, right 07/23/25 04:14 ABG pH 7.60 (7.35-7.45) H* 07/23/25 04:14 ABG pCO2 23.6 mmHg (35-45) L 07/23/25 04:14 ABG pO2 97.4 mmHg (80.0-100.0) 07/23/25 04:14 ABG PO2/FiO2 Ratio 463 07/23/25 04:14 ABG HCO3 23.1 mmol/L (22-26) 07/23/25 04:14 ABG O2 Saturation > 99.1 07/20/25 12:42 ABG Base Excess 2.5 mmol/L (-2.0-2.0) H 07/23/25 04:14 Jeff Test N/a 07/23/25 04:14 A-a O2 Gradient 7.1 mmHg (5-10) 07/20/25 12:42 Hematocrit 33.8 % (42-52) L 07/23/25 04:14 Hgb O2 Saturation 98.4 % (95-100) 07/20/25 12:42 Carboxyhemoglobin 0.7 %THgb (0.4-20.1) 07/20/25 12:42 Methemoglobin 1.0 % (0.4-1.5) 07/20/25 12:42 Total Hemoglobin 10.1 g/dL (14-18) L 07/20/25 12:42 Sodium 138.0 mmol/L (131-143) 07/20/25 12:42 Potassium 4.0 mmol/L (3.5-5.0) 07/20/25 12:42 Glucose 196.0 mg/dL (70-115) H 07/20/25 12:42 Ionized Calcium 1.1 mmol/L (1.1-1.4) 07/20/25 12:42 O2 Delivery Device Room air 07/23/25 04:14 FiO2 21.0 % 07/23/25 04:14 Tidal Volume 0.48 07/22/25 02:51 PEEP 5.0 cmH20 07/22/25 02:51 Advanced Practice Nurse Psychotherapist ID Mark 07/23/25 04:14 Sodium 139 mmol/L (136-145) 07/29/25 05:23 Potassium 5.0 mmol/L (3.5-5.1) 07/29/25 05:23 Chloride 100 mmol/L (98-107) 07/29/25 05:23 Carbon Dioxide 26 mmol/L (22-29) 07/29/25 05:23 Anion Gap 18.0 (5-19) 07/29/25 05:23 BUN 56 mg/dL (6-20) H 07/29/25 05:23 Creatinine 3.6 mg/dL (0.7-1.2) H 07/29/25 05:23 GFR Calculation 21.3 mL/min (90-130) L 07/29/25 05:23 Glucose 80 mg/dL (65-115) 07/29/25 05:23 POC Glucose 84 mg/dL (70-110) 07/31/25 11:13 Calculated Osmolality 302 mOsm/kg (285-295) H 07/29/25 05:23 Lactic Acid 1.0 mmol/L (0.5-2.2) 07/20/25 09:08 Lactate 2.4 mmol/L (0.5-2.2) H 07/23/25 04:16 Calcium 9.3 mg/dL (8.5-10.5) 07/29/25 05:23 Phosphorus 5.0 mg/dL (2.5-4.5) H 07/23/25 04:16 Magnesium 2.1 mg/dL (1.7-2.3) 07/23/25 04:16 Total Bilirubin 0.7 mg/dL (0.15-1.2) 07/29/25 05:23 AST 25 U/L (0-40) 07/29/25 05:23 ALT 13 U/L (0-41) 07/29/25 05:23 Alkaline Phosphatase 86 U/L (40-130) 07/29/25 05:23 Creatine Kinase 67 U/L (39-308) 07/23/25 04:16 C-Reactive Protein 21.7 mg/L (0.0-4.9) H 07/23/25 04:16 NT-Pro-B Natriuret Pep 57521 pg/mL (0-125) H 07/23/25 04:16 Total Protein 6.0 g/dL (6.6-8.7) L 07/29/25 05:23 Albumin 3.5 g/dL (3.5-5.2) 07/29/25 05:23 Globulin 2.5 g/dL (1.3-4.6) 07/29/25 05:23 Procalcitonin 0.41 ng/mL (0-0.5) 07/23/25 04:16 TSH 1.46 uIU/mL (0.27-4.20) 07/20/25 09:08 Urine Color Yellow (Yellow) 07/20/25 10:01 Urine Appearance Turbid (CLEAR) A 07/20/25 10:01 Urine pH 5.5 (5-7) 07/20/25 10:01 Ur Specific [place] 1.017 (1.005-1.030) 07/20/25 10:01 Urine Protein 2+ (Negative) A 07/20/25 10:01 Urine Glucose (UA) Negative (Normal) 07/20/25 10:01 Urine Ketones Negative (Negative) 07/20/25 10:01 Urine Blood 2+ (Negative) A 07/20/25 10:01 Urine Nitrate Negative (Negative) 07/20/25 10:01 Urine Bilirubin Negative (Negative) 07/20/25 10:01 Urine Urobilinogen 1.0 mg/dL (Negative) 07/20/25 10:01 Ur Leukocyte Esterase 3+ (Negative) A 07/20/25 10:01 Urine RBC 10-15 /hpf (0-2) H 07/20/25 10:01 Urine WBC Too numerous to cnt /hpf (0-5) H 07/20/25 10:01 Ur Squamous Epith Cells 0-4 /hpf (0-5) H 07/20/25 10:01 Amorphous Sediment Not Reportable 07/20/25 10:01 Urine Bacteria 4+ /hpf (NONE) H 07/20/25 10:01 Urine Mucus 1+ /hpf 07/20/25 10:01 Vancomycin Trough 21.2 ug/mL (10-15) H 07/24/25 04:40 Hep Bs Antigen Non-reactive (Nonreactive) 07/20/25 09:08 Hep Bs Antibody < 3.5 (11.5-1000) L 07/20/25 09:08 Blood Type AB Positive 07/20/25 10:10 Rho(D) Type Rh positive 07/20/25 10:10 Antibody Screen Negative 07/20/25 10:10 Vitals Last Vital Signs Temp 97.8 F 07/31/25 11:11 Pulse 84 07/31/25 11:11 Resp 17 07/31/25 11:11 BP 112/64 07/31/25 11:11 Pulse Ox 97 07/31/25 11:11 O2 Del Method Room Air 07/31/25 11:11 O2 Flow Rate 3 07/22/25 15:00 FiO2 30 07/22/25 15:11 Discharge Plan Discharge Patient Disposition: Xfer SNF Condition: Stable Prescriptions: New hydralazine 10 mg Tablet 10 mg PO Q6H 30 Days Qty: 120 0RF polyethylene glycol 3350 17 gram Powder In Packet 17 g PO DAILY PRN (Reason: constipation) 30 Days Qty: 30 0RF midodrine 5 mg tablet 5 mg PO TID PRN (Reason: sbp<90 or dbp<60 with dialysis) 30 Days Qty: 60 0RF Rx Instructions: only give on dialysis days, to be used for hypotension associated with dialysis Continued polyethylene glycol 3350 [Miralax] 17 gram powder in packet 17 g PO DAILY dextrose [Glucose Gel] 40 % gel 15 g PO Q15M PRN (Reason: low bs) Rx Instructions: until symptoms of low blood sugar are controlled lidocaine 5 % adhesive patch,medicated 1 patch topical DAILY Rx Instructions: leave on most painful area for up to 12 hrs mupirocin 2 % ointment 1 applic topical BID Qty: 15 0RF trazodone 100 mg tablet 300 mg PO QPM gabapentin 300 mg capsule 300 mg PO TID Qty: 90 5RF loperamide [Anti-Diarrheal (loperamide)] 2 mg tablet See Rx Instructions .ROUTE .COMPLEX Qty: 30 0RF Dose Instruction: TAKE 2 TABLETS BY MOUTH WITH ONSET OF FOR DIARRHEA NEEDED; MAY REPEAT WITH EACH LOOSE STOOL; NO MORE THAN 8 TABLETS PER DAY Rx Instructions: TAKE 2 TABLETS BY MOUTH WITH ONSET OF FOR DIARRHEA NEEDED; MAY REPEAT WITH EACH LOOSE STOOL; NO MORE THAN 8 TABLETS PER DAY carvedilol 12.5 mg tablet See Rx Instructions .ROUTE .COMPLEX Qty: 60 3RF Dose Instruction: TAKE 1 TABLET BY MOUTH TWICE DAILY; take with a meal OR food. do not take if systolic blood pressure is below 90 OR diastolic blood pressure is below 60 Rx Instructions: TAKE 1 TABLET BY MOUTH TWICE DAILY; take with a meal OR food. do not take if systolic blood pressure is below 90 OR diastolic blood pressure is below 60 aripiprazole 15 mg tablet See Rx Instructions .ROUTE .COMPLEX Qty: 90 3RF Dose Instruction: TAKE 1 TABLET BY MOUTH EVERY MORNING FOR DEPRESSION Rx Instructions: TAKE 1 TABLET BY MOUTH EVERY MORNING FOR DEPRESSION insulin lispro [Humalog KwikPen Insulin] 100 unit/mL insulin pen See Rx Instructions SUBCUT TID Qty: 15 5RF Rx Instructions: subcutaneously three times daily; after meals, based on low-dose sliding scale. Max daily is 60 units. famotidine 20 mg tablet See Rx Instructions .ROUTE .COMPLEX Qty: 60 3RF Dose Instruction: TAKE 1 TABLET BY MOUTH TWICE DAILY FOR HEARTBURN Rx Instructions: TAKE 1 TABLET BY MOUTH TWICE DAILY FOR HEARTBURN aspirin 325 mg tablet,delayed release (DR/EC) See Rx Instructions .ROUTE .COMPLEX Qty: 30 3RF Dose Instruction: TAKE 1 TABLET BY MOUTH EVERY DAY Rx Instructions: TAKE 1 TABLET BY MOUTH EVERY DAY benztropine 1 mg tablet See Rx Instructions .ROUTE .COMPLEX Qty: 180 1RF Dose Instruction: TAKE 1 TABLET BY MOUTH TWICE DAILY FOR INVOLUNTARY MOVEMENT Rx Instructions: TAKE 1 TABLET BY MOUTH TWICE DAILY FOR INVOLUNTARY MOVEMENT clonazepam 0.5 mg tablet 0.5 mg PO .COMPLEX Qty: 12 5RF Rx Instructions: Take 1 tablet by mouth 3 times a week before dialysis for anxiety cetirizine 10 mg tablet See Rx Instructions .ROUTE .COMPLEX Qty: 90 3RF Dose Instruction: TAKE 1 TABLET BY MOUTH EVERY NIGHT AT BEDTIME FOR ALLERGIES Rx Instructions: TAKE 1 TABLET BY MOUTH EVERY NIGHT AT BEDTIME FOR ALLERGIES Thick-It Powder See Rx Instructions .ROUTE .COMPLEX Qty: 1020 3RF Dose Instruction: USE DIRECTED TO MAKE LIQUID EXTREMLY THICKENED Rx Instructions: USE DIRECTED TO MAKE LIQUID EXTREMLY THICKENED hydrocodone-acetaminophen 7.5-325 mg tablet 1 tab PO Q6H PRN (Reason: pain) 30 Days Qty: 120 0RF naloxone [Narcan] 4 mg/actuation spray,non-aerosol 1 spray intranasal Q3M Qty: 2 2RF Rx Instructions: spray 1 dose into ONE nostril; alternate nostrils w each dose until help arrives amlodipine 10 mg Tablet 10 mg PO DAILY@09 multivitamin with folic acid [Daily-Sean (with folic acid)] 400 mcg tablet 1 tab PO DAILY@09 lurasidone 120 mg tablet 60 mg PO BID atorvastatin 10 mg tablet 10 mg PO BEDTIME escitalopram oxalate 10 mg Tablet 15 mg PO DAILY fenofibrate 160 mg tablet 160 mg PO DAILY DEKAs Essential 600 mcg-50 mcg- 101 mg-1,000mcg Capsule 1 cap PO DAILY Glucerna Liquid 1 ea PO PRN PRN (Reason: REFUSING MEALS ) acetaminophen [Tylenol] 325 mg Tablet 650 mg PO QID PRN (Reason: Pain) ondansetron 4 mg tablet,disintegrating 4 mg PO Q6H PRN (Reason: nausea and vomiting) Qty: 10 0RF Changed isosorbide mononitrate 60 mg tablet extended release 24 hr See Rx Instructions .ROUTE .COMPLEX Qty: 30 0RF Dose Instruction: TAKE 1 TABLET BY MOUTH EVERY DAY FOR BLOOD FLOW; check BP PRIOR TO ADMIN, HOLD IF LESS TAHN 90/60, HOLD FOR DIALYSIS Rx Instructions: TAKE 0.5 TABLET BY MOUTH EVERY DAY FOR BLOOD FLOW; check BP PRIOR TO ADMIN, HOLD IF LESS TAHN 90/60, HOLD FOR DIALYSIS Discontinued lisinopril 40 mg tablet See Rx Instructions .ROUTE .COMPLEX Qty: 30 11RF Dose Instruction: TAKE 1 TABLET BY MOUTH EVERY NIGHT AT BEDTIME FOR HYPERTENSION Rx Instructions: TAKE 1 TABLET BY MOUTH EVERY NIGHT AT BEDTIME FOR HYPERTENSION baclofen 10 mg tablet 10 mg PO TID PRN (Reason: muscle spasm) 30 Days Qty: 90 5RF No Action (DME) Wheelchair pad See Rx Instructions .Route .MEDSUPPLY Qty: 1 0RF Rx Instructions: As directed (DME) blood glucose control, normal [True Metrix Level 2] Solution See Rx Instructions .Route Qty: 1 11RF Rx Instructions: Check sugars 3x daily. (DME) Blood Glucose Test Strip See Rx Instructions .MEDSUPPLY Qty: 200 12RF Rx Instructions: Use as directed with glucometer to check blood sugar Check sugars 3x daily. (DME) lancets Misc See Rx Instructions .MEDSUPPLY Qty: 200 12RF Rx Instructions: Use as directed to Check sugars 3x daily. (DME) pen needle, diabetic [Pen Needle] 31 gauge x 5/16 needle See Rx Instructions .MEDSUPPLY Qty: 100 12RF Rx Instructions: Use as directed for insulin administration 3x daily. (DME) WHEELCHAIR WITH SEAT BELT AND HARNESS See Rx Instructions .Route .MEDSUPPLY Qty: 1 0RF Rx Instructions: Wheelchair bound, cognitively impaired, multiple previous falls from wheelchair. Referrals: [facility] [Outside] Valente Harding DO [Primary Care Provider, Family Practice] Discharge Diet: As Directed Discharge Activity: Resume usual activity Patient Instructions: Hydralazine (By mouth) (Apresoline), Midodrine (By mouth), Polyethylene Glycol 3350 (By mouth) (Miralax, Healthylax..., ARDS (Acute Respiratory Distress Syndrome) (DC), Chronic Respiratory Failure (DC), Opioid Safety, Patient Portal & Kaye Instructions Activity Restrictions/Additional Instructions: - Patient needs to be on a dysphagia level 4 diet, moderately thickened, aspiration precautions - Please follow-up with primary care provider Discharge Attestations Time Spent in Discharge Care*: greater than 30 min Status at Discharge: Cognitive status at discharge: moderately impaired cognition, Behavioral status at discharge: cooperative and can be uncooperative, Quality Metrics Clinical Quality Measures [ No reported AMI, CVA or VTE this stay] Coding Level of Care Code Acute Code for Chg Fwd Diagnoses End stage renal disease on dialysis N18.6; Z99.2 Angioedema T78.3XXA Acute hypoxic respiratory failure J96.01 Sepsis A41.9 ARDS (adult respiratory distress syndrome) J80 Aspiration pneumonia J69.0
--- NOTE | 2025-07-31 16:44 | P.PN_ITS ---
Subjective 2 Subjective: getting hD Medications: Reviewed: Yes Vitals/I&O/Wt Last Vital Signs Temp 97.8 F 07/31/25 11:11 Pulse 84 07/31/25 11:11 Resp 17 07/31/25 11:11 BP 112/64 07/31/25 11:11 Pulse Ox 97 07/31/25 11:11 O2 Del Method Room Air 07/31/25 11:11 O2 Flow Rate 3 07/22/25 15:00 FiO2 30 07/22/25 15:11 07/31/25 07/31/25 07/31/25 06:59 14:59 22:59 Intake Total 480 / 720 240 / 240 Balance 480 / 720 240 / 240 Weight last 48 hrs Weight 51.71 kg Weight 51.71 kg Physical Exam 2 Const: COMMON NORMALS: no acute distress ORIENTATION/CONSCIOUSNESS: Yes awake and Yes oriented to person Resp: COMMON NORMALS: normal respiratory effort, No retractions, No use of accessory muscles and clear to auscultation bilaterally AUSCULTATION: clear to auscultation bilaterally Cardio: COMMON NORMALS: regular rate, regular rhythm, S1 normal heart sound present and S2 normal heart sound present RATE: regular rate RHYTHM: r egular rhythm HEART SOUNDS: S1 normal heart sound present and S2 normal heart sound present GI: COMMON NORMALS: Normal to inspection, nondistended, normoactive bowel sounds present and non-tender Extremity: COMMON NORMALS: no pedal edema Neuro: SENSORIUM/ORIENTATION: Yes oriented to person Psych: COMMON NORMALS: mental status grossly normal Data 07/29/25 05:23 07/29/25 05:23 A&P Assessment and plan 1. End stage renal disease on dialysis: Plan: 1. End-stage renal disease: MWF schedule 2. Angioedema, management per primary team status post steroids and Benadryl 3. Acute respiratory failure, possible aspiration pneumonia and fluid overload, HD as above, extubated 4. Sepsis secondary to UTI and aspiration pneumonia 5. Acute encephalopathy multifactorial 6. hyperkalemia , s/p kayeylate Patient evaluated using audiovisual cart time. Time spent 40 minutes PDMP PDMP Reviewed: Not Reviewed Attestations 2 Medical Necessity Statement*: [facility] C[facility] Level of Care Code Acute Code for Chg Fwd Diagnoses End stage renal disease on dialysis N18.6; Z99.2
[2025-07-31] MEDS: ATORVASTATIN 10 MG TABLET PO (22:04)
--- NOTE | 2025-07-31 22:44 | PC.NURSE ---
Report called to [facility] by ZHANE Muhammad at 2240. [facility] notified at this time by this nurse for patient transfer to [facility]. Awaiting EMS transfer. Patient dialysis is complete and sharma catheter is in place.
--- NOTE | 2025-08-01 01:44 | PC.NURSE ---
Pt was transferred to [facility] by EMS. IV catheter was removed, and catheter intact. All belongings were sent with patient. Report given to Joyce Reyes LPN at the facility.
[2025-08-01 01:48] VITALS: BP 109/56; PULSE 81; TEMP 36.1; O2SAT 97
== END 2025-07-31 23:55 | disposition intermediate care facility (04) | DRG 720 ==
LOC: ER 09:37 → ER IP 10:25 → ICU 16:14 → MEDSURG 07-24 20:40
PROVIDERS: Hospitalist; Admitting Provider Family Medicine; Emergency Provider Emergency Medicine; PCP Family Medicine; Visit Provider Family Medicine
DX: A41.9 Sepsis, unspecified organism (principal); T78.3XXA Angioneurotic edema, initial encounter; E10.22 Type 1 diabetes mellitus with diabetic chronic kidney disease; I13.2 Hypertensive heart and chronic kidney disease with heart failure and with stage 5 chronic kidney disease, or end stage renal disease; I50.9 Heart failure, unspecified; N18.6 End stage renal disease; R65.21 Severe sepsis with septic shock; G93.41 Metabolic encephalopathy; J80 Acute respiratory distress syndrome; J69.0 Pneumonitis due to inhalation of food and vomit; N39.0 Urinary tract infection, site not specified; B96.20 Unspecified Escherichia coli [E. coli] as the cause of diseases classified elsewhere; Z16.12 Extended spectrum beta lactamase (ESBL) resistance; F17.210 Nicotine dependence, cigarettes, uncomplicated; I16.0 Hypertensive urgency; E78.2 Mixed hyperlipidemia; F79 Unspecified intellectual disabilities; E87.5 Hyperkalemia; Z79.82 Long term (current) use of aspirin; Y92.129 Unspecified place in nursing home as the place of occurrence of the external cause; Z99.2 Dependence on renal dialysis; Z79.4 Long term (current) use of insulin
CPT/HCPCS: 36415; 36416; 36430; 36573; 36592; 36600; 51702; 51798; 71045; 71250; 74176; 74230; 80051; 80053; 80202; 81001; 82330; 82550; 82803; 82805; 82962; 83605; 83735; 83880; 84100; 84145; 84443; 85025; 85610; 85730; 86140; 86706; 86850; 86900; 86927; 87040; 87070; 87086; 87186; 87205; 87340; 90935; 92507; 92523; 92526; 92610; 92611; 94002; 94003; 94640; 94799; 96365; 96366; 96367; 96368; 96372; 96375; 97161; 97167; 99291; C1751; J1200; J1644; J1815; J2020; J2185; J2250; J2270; J2404; J2470; J2704; J2919; J3010; J3373; J3490; J7040; J7512; J7626; J9999; P9017; P9047; Q3014

== ENCOUNTER 2025-08-01 12:12 | Emergency (ER) | payer MEDICAID, SELFPAY ==
[2025-08-01 12:13] VITALS: BP 158/92; PULSE 76; RESP 16; TEMP 36.6; O2SAT 100
--- NOTE | 2025-08-01 12:15 | XRR_ITS ---
PROCEDURE INFORMATION: Exam: XR Chest Exam date and time: 08/01/2025 1:29 PM Age: 55 years old Clinical indication: Cough and dyspnea; Additional info: Dyspnea/cough TECHNIQUE: Imaging protocol: Radiologic exam of the chest. Views: 1 view. COMPARISON: CR (CHEST, ) 07/22/2025 6:04 AM FINDINGS: Tubes, catheters and devices: Right central catheter projects over the right atrium. Lungs: Low lung volumes. Atelectatic changes/scarring noted in the left lower lobe. Pleural spaces: No pleural effusion. No pneumothorax. Heart/Mediastinum: Cardiomegaly. Bones/joints: Chronic right rib fractures. XR/XR chest 1V portable [id number] IMPRESSION: No acute findings.
--- NOTE | 2025-08-01 12:15 | CTR_ITS ---
PROCEDURE INFORMATION: Exam: CT Cervical Spine Without Contrast Exam date and time: 08/01/2025 1:23 PM Age: 55 years old Clinical indication: Injury or trauma; Fall; Blunt trauma TECHNIQUE: Imaging protocol: Computed tomography of the cervical spine without contrast. Radiation optimization: All CT scans at this facility use at least one of these dose optimization techniques: automated exposure control; mA and/or kV adjustment per patient size (includes targeted exams where dose is matched to clinical indication); or iterative reconstruction. COMPARISON: RF FL barium swallow modifd [id number] 07/24/2025 10:45 AM RADIATION DOSE METRICS: Total DLP (mGy-cm): 461.8 FINDINGS: Bones: Degenerative changes including osteophytes, disc space narrowing, endplate spurring, and facet hypertrophy. Findings are most prominent at C4-C5 and C5-C6 with associated severe central canal and neural foraminal narrowing. No acute cervical fracture. Lungs: No pneumothorax. Soft tissues: Unremarkable. CT/CT cervical spin wo con* [id number] IMPRESSION: 1. No acute fracture. 2. Degenerative changes most prominent at C4-C5 and C5-C6 with associated severe neural foraminal and canal stenosis.
--- NOTE | 2025-08-01 12:15 | CTR_ITS ---
PROCEDURE INFORMATION: Exam: CT Head Without Contrast Exam date and time: 08/01/2025 1:23 PM Age: 55 years old Clinical indication: Injury or trauma; Fall; Blunt trauma (contusions or hematomas); Loss of consciousness unknown TECHNIQUE: Imaging protocol: Computed tomography of the head without contrast. Radiation optimization: All CT scans at this facility use at least one of these dose optimization techniques: automated exposure control; mA and/or kV adjustment per patient size (includes targeted exams where dose is matched to clinical indication); or iterative reconstruction. COMPARISON: CT head wo con* [id number] 07/19/2025 6:36 PM RADIATION DOSE METRICS: Total DLP (mGy-cm): 939.5 FINDINGS: Brain: No edema, mass effect, or midline shift. No acute intracranial hemorrhage. Periventricular and deep white matter hypodensities compatible with chronic microvascular ischemic changes. Cerebral ventricles: No ventriculomegaly. Paranasal sinuses: Visualized sinuses are unremarkable. No fluid levels. Mastoid air cells: No mastoid effusion. Bones: Unremarkable. No acute fracture. Soft tissues: Unremarkable. CT/CT head wo con* [id number] IMPRESSION: No acute intracranial abnormality.
--- NOTE | 2025-08-01 12:15 | W.ED.GENADLT ---
HPI - General Adult General: Chief complaint: Fall Stated complaint: left leg pain s/p fall Time Seen by Provider: 08/01/25 12:14 History of Present Illness: 55-year-old male presents emergency room with left hip pain leg pain after a fall. He is complaining of left hip pain and appears shortened and rotated. He also hit the front of his head there is no report of loss of consciousness. Patient has significant cognitive delay and is nonverbal. He is a dialysis patient they report that he was hypotensive yesterday so he did not go to his dialysis appointment. He is normotensive today. Seen this patient multiple times in the past he is at his regular baseline at this point although seems somewhat uncomfortable with pain in the left hip Associated symptoms: Deny chest pain, dyspnea or rash Related Data Home Medications ?Medication ?Instructions ?Recorded ?Confirmed amlodipine 10 mg tablet 10 mg PO DAILY@03/30/23 08/01/25 multivitamin with folic acid 400 1 tab PO DAILY@03/30/23 08/01/25 mcg tablet (Daily-Sean (with folic acid)) acetaminophen 325 mg tablet 650 mg PO QID PRN Pain 09/04/24 08/01/25 (Tylenol) trazodone 100 mg tablet 300 mg PO QPM 04/28/25 08/01/25 dextrose 40 % oral gel (Glucose 15 g PO Q15M PRN low bs 05/28/25 08/01/25 Gel) lidocaine 5 % topical patch 1 patch topical DAILY 05/28/25 08/01/25 lurasidone 120 mg tablet 60 mg PO BID 05/28/25 08/01/25 atorvastatin 10 mg tablet 10 mg PO BEDTIME 07/20/25 08/01/25 escitalopram oxalate 10 mg tablet 15 mg PO DAILY 07/20/25 08/01/25 fenofibrate 160 mg tablet 160 mg PO DAILY 07/20/25 08/01/25 nut.tx.gluc.intol,lac-free,soy 1 ea PO PRN PRN REFUSING MEALS 07/20/25 08/01/25 (Glucerna oral liquid) vit A 600 mcg-vit D3 50 mcg-vit E 1 cap PO DAILY 07/20/25 08/01/25 101 mg-vit K1 1,000 mcg capsule (DEKAs Essential) aripiprazole 15 mg tablet 15 mg PO QAM 08/01/25 08/01/25 aspirin 325 mg tablet,delayed 325 mg PO DAILY 08/01/25 08/01/25 release benztropine 1 mg tablet 1 mg PO BID 08/01/25 08/01/25 cetirizine 10 mg tablet 10 mg PO BEDTIME 08/01/25 08/01/25 famotidine 20 mg tablet 20 mg PO BID 08/01/25 08/01/25 Previous Rx's ?Medication ?Instructions ?Recorded ondansetron 4 mg disintegrating 4 mg PO Q6H PRN nausea and 02/11/25 tablet vomiting #10 tabs mupirocin 2 % topical ointment 1 applic topical BID #15 grams 03/26/25 Wheelchair pad #1 ea 04/28/25 gabapentin 300 mg capsule 300 mg PO TID #90 caps 05/23/25 loperamide 2 mg tablet See Rx Instructions .Route 06/09/25 (Anti-Diarrheal (loperamide)) .COMPLEX #30 ea carvedilol 12.5 mg tablet See Rx Instructions .Route 06/16/25 .COMPLEX #60 tabs insulin lispro 100 unit/mL See Rx Instructions SUBCUT TID #15 06/24/25 subcutaneous pen (Humalog KwikPen mL (U-100) Insulin) blood glucose control, normal #1 ea 07/01/25 (True Metrix Level 2 solution) blood sugar diagnostic (Blood #200 ea 07/01/25 Glucose Test strips) clonazepam 0.5 mg tablet 0.5 mg PO .COMPLEX #12 tabs 07/01/25 lancets #200 ea 07/01/25 pen needle, diabetic 31 gauge x #100 ea 07/01/2502/13 (Pen Needle) starch (thickening) (Thick-It oral See Rx Instructions .Route 07/01/25 powder) .COMPLEX #1,020 grams WHEELCHAIR WITH SEAT BELT AND #1 ea 07/15/25 HARNESS hydrocodone 7.5 mg-acetaminophen 1 tab PO Q6H PRN pain 30 days #120 07/15/25 325 mg tablet tabs naloxone 4 mg/actuation nasal 1 spray intranasal Q3M #2 ea 07/15/25 spray (Narcan) hydralazine 10 mg tablet 10 mg PO Q6H 30 days #120 tabs 07/27/25 isosorbide mononitrate 60 mg See Rx Instructions .Route 07/27/25 tablet,extended release 24 hr .COMPLEX #30 tabs midodrine 5 mg tablet 5 mg PO TID PRN sbp<90 or dbp<60 07/27/25 with dialysis 30 days #60 tabs polyethylene glycol 3350 17 gram 17 g PO DAILY PRN constipation 30 07/27/25 oral powder packet days #30 ea Allergies Allergy/AdvReac Type Severity Reaction Status Date / Time baclofen AdvReac Severe angioedema Verified 07/23/25 19:03 lisinopril AdvReac Severe angioedema Verified 07/23/25 19:03 Review of Systems Const: Denies: fever(s) or chills Card: Denies: chest pain Resp: Denies: dyspnea GI: Denies: abdominal pain : Denies: dysuria, urinary frequency or urinary urgency Musc: Denies: neck pain or back pain Skin/Breast: Denies: rash PFSH ED PFSH: Medical History Malignant hypertension ESRD (end stage renal disease) Hyperlipemia, mixed Acute renal failure Acute kidney injury superimposed on CKD Acute hyponatremia Hyponatremia Anemia Hypervolemia Tobacco abuse Diabetes Social History Smoking and tobacco/nicotine status: current every day tobacco/nicotine user cigarettes Alcohol intake: former Substance/Drug Use: former Physical Exam Const: COMMON NORMALS: no acute distress GENERAL APPEARANCE: cooperative and comfortable ORIENTATION/CONSCIOUSNESS: Yes awake, Yes oriented to person, Yes oriented to place and Yes oriented to time HENMT: COMMON NORMALS: normocephalic, atraumatic and hearing grossly normal bilaterally HEAD & SCALP: normocephalic and atraumatic Resp: COMMON NORMALS: normal respiratory effort, No retractions, No use of accessory muscles and clear to auscultation bilaterally AUSCULTATION: clear to auscultation bilaterally Cardio: COMMON NORMALS: regular rate, regular rhythm and No murmurs present (Cardio) RATE: regular rate RHYTHM: regular rhythm GI: COMMON NORMALS: Soft to palpation and No hepatosplenomegaly present AUSCULTATION: Yes normoactive bowel sounds PALPATION: Yes Soft to palpation, No Tenderness to palpation present (GI), No Guarding due to palpation present (GI) and Yes No hepatosplenomegaly present Extremity: COMMON NORMALS: normal to inspection, capillary refill normal, no clubbing, cyanosis or edema, no calf tenderness and no pedal edema Neuro: SENSORIUM/ORIENTATION: Yes oriented to person, Yes oriented to place and Yes oriented to time Skin: COMMON NORMALS: no rashes or lesions noted GENERAL SKIN EXAM: no rashes or lesions noted Course Vital Signs: Vital signs: Vital Signs Temperature 97.9 F 08/01/25 12:13 Pulse Rate 75 08/01/25 17:30 Respiratory Rate 16 08/01/25 12:13 Blood Pressure 150/77 08/01/25 17:30 Pulse Oximetry 97 08/01/25 17:30 Oxygen Delivery Me thod Room Air 08/01/25 12:13 MDM - General Adult Medical Decision Making X-rays question of pubic rami fracture. CT confirmed there is no pubic rami fracture. CT of the head was negative CT of the neck shows foraminal stenosis he has no significant radicular symptoms at this time. Go ahead and discharge patient home with recommendation to use Tylenol ibuprofen for pain and follow-up with primary care. Lab Data I reviewed the patient's lab results. 08/01/25 12:52 08/01/25 12:52 Radiology Impressions Cervical Spine CT 08/01/25 12:15 IMPRESSION: 1. No acute fracture. 2. Degenerative changes most prominent at C4-C5 and C5-C6 with associated severe neural foraminal and canal stenosis. Chest X-Ray 08/01/25 12:15 IMPRESSION: No acute findings. Head CT 08/01/25 12:15 IMPRESSION: No acute intracranial abnormality. Femur X-Ray 08/01/25 12:16 IMPRESSION: Chronic proximal fibular deformity. No acute fracture of the left femur. If symptoms persist correlation with CT/MRI recommended. Hip/Pelvis X-Ray 08/01/25 12:55 IMPRESSION: No acute findings. ADDENDUM: 08/01/[address] Kendall's review of the provided images, there is concern for an inferior pubic ramus fracture on the right. While there is no definite radiographic evidence of fracture, given history of recent trauma, CT of the pelvis recommended for further evaluation. The findings were verbally communicated by telephone with Dr. KENDALL at 2:38 PM CDT on 08/01/2025. Pelvis CT 08/01/25 14:37 IMPRESSION: Negative for acute fracture. Laboratory Results WBC 4.83 10^3/uL (3.29-11.43) 08/01/25 12:52 RBC 3.07 10^6/uL (3.85-5.65) L 08/01/25 12:52 Hgb 8.90 g/dL (11.27-16.99) L 08/01/25 12:52 Hct 28.5 % (37-53) L 08/01/25 12:52 MCV 92.8 fl (82-101) 08/01/25 12:52 MCH 29.0 pg (27-33) 08/01/25 12:52 MCHC 31.2 g/dL (30-55) 08/01/25 12:52 RDW 14.6 % (12.1-15.1) 08/01/25 12:52 Plt Count 169 10^3/cmm (157-399) 08/01/25 12:52 MPV 12.0 fL (7.4-10.4) H 08/01/25 12:52 Neut % (Auto) 76.2 % 08/01/25 12:52 Lymph % (Auto) 14.5 % 08/01/25 12:52 [place] % (Auto) 6.8 % 08/01/25 12:52 Eos % (Auto) 2.1 % 08/01/25 12:52 Baso % (Auto) 0.2 % 08/01/25 12:52 Neut # (Auto) 3.68 10^3/uL (1.8-7.7) 08/01/25 12:52 Lymph # (Auto) 0.7 10^3/uL (0.8-4.8) L 08/01/25 12:52 [place] # (Auto) 0.3 10^3/uL (0.2-0.9) 08/01/25 12:52 Eos # (Auto) 0.1 10^3/uL (0.0-0.8) 08/01/25 12:52 Baso # (Auto) 0.0 10^3/uL (0.0-0.1) 08/01/25 12:52 Nucleated RBC % (auto) 0 % 08/01/25 12:52 Nucleated RBCs # 0.0 /100WBC 08/01/25 12:52 Sodium 138 mmol/L (136-145) 08/01/25 12:52 Potassium 4.7 mmol/L (3.5-5.1) 08/01/25 12:52 Chloride 100 mmol/L (98-107) 08/01/25 12:52 Carbon Dioxide 29 mmol/L (22-29) 08/01/25 12:52 Anion Gap 13.7 (5-19) 08/01/25 12:52 BUN 28 mg/dL (6-20) H 08/01/25 12:52 Creatinine 2.4 mg/dL (0.7-1.2) H 08/01/25 12:52 GFR Calculation 34.1 mL/min (90-130) L 08/01/25 12:52 Glucose 143 mg/dL (65-115) H 08/01/25 12:52 Calculated Osmolality 294 mOsm/kg (285-295) 08/01/25 12:52 Calcium 9.4 mg/dL (8.5-10.5) 08/01/25 12:52 Total Bilirubin 0.6 mg/dL (0.15-1.2) 08/01/25 12:52 AST 29 U/L (0-40) 08/01/25 12:52 ALT 12 U/L (0-41) 08/01/25 12:52 Alkaline Phosphatase 94 U/L (40-130) 08/01/25 12:52 Total Protein 6.5 g/dL (6.6-8.7) L 08/01/25 12:52 Albumin 4.2 g/dL (3.5-5.2) 08/01/25 12:52 Globulin 2.3 g/dL (1.3-4.6) 08/01/25 12:52 All radiology interpretation(s) finalized by discharge Discharge Plan Discharge Patient Disposition: Home Clinical Impression: Accidental fall from wheelchair, Wheelchair dependent Condition: Stable Prescriptions: No Action dextrose [Glucose Gel] 40 % gel 15 g PO Q15M PRN (Reason: low bs) Rx Instructions: until symptoms of low blood sugar are controlled lidocaine 5 % adhesive patch,medicated 1 patch topical DAILY Rx Instructions: leave on most painful area for up to 12 hrs mupirocin 2 % ointment 1 applic topical BID Qty: 15 0RF (DME) Wheelchair pad See Rx Instructions .Route .MEDSUPPLY Qty: 1 0RF Rx Instructions: As directed trazodone 100 mg tablet 300 mg PO QPM gabapentin 300 mg capsule 300 mg PO TID Qty: 90 5RF loperamide [Anti-Diarrheal (loperamide)] 2 mg tablet See Rx Instructions .ROUTE .COMPLEX Qty: 30 0RF Dose Instruction: TAKE 2 TABLETS BY MOUTH WITH ONSET OF FOR DIARRHEA NEEDED; MAY REPEAT WITH EACH LOOSE STOOL; NO MORE THAN 8 TABLETS PER DAY Rx Instructions: TAKE 2 TABLETS BY MOUTH WITH ONSET OF FOR DIARRHEA NEEDED; MAY REPEAT WITH EACH LOOSE STOOL; NO MORE THAN 8 TABLETS PER DAY carvedilol 12.5 mg tablet See Rx Instructions .ROUTE .COMPLEX Qty: 60 3RF Dose Instruction: TAKE 1 TABLET BY MOUTH TWICE DAILY; take with a meal OR food. do not take if systolic blood pressure is below 90 OR diastolic blood pressure is below 60 Rx Instructions: TAKE 1 TABLET BY MOUTH TWICE DAILY; take with a meal OR food. do not take if systolic blood pressure is below 90 OR diastolic blood pressure is below 60 insulin lispro [Humalog KwikPen Insulin] 100 unit/mL insulin pen See Rx Instructions SUBCUT TID Qty: 15 5RF Rx Instructions: subcutaneously three times daily; after meals, based on low-dose sliding scale. Max daily is 60 units. clonazepam 0.5 mg tablet 0.5 mg PO .COMPLEX Qty: 12 5RF Rx Instructions: Take 1 tablet by mouth 3 times a week before dialysis for anxiety. (DME) blood glucose control, normal [True Metrix Level 2] Solution See Rx Instructions .Route Qty: 1 11RF Rx Instructions: Check sugars 3x daily. (DME) Blood Glucose Test Strip See Rx Instructions .MEDSUPPLY Qty: 200 12RF Rx Instructions: Use as directed with glucometer to check blood sugar Check sugars 3x daily. (DME) lancets Misc See Rx Instructions .MEDSUPPLY Qty: 200 12RF Rx Instructions: Use as directed to Check sugars 3x daily. (DME) pen needle, diabetic [Pen Needle] 31 gauge x 5/16 needle See Rx Instructions .MEDSUPPLY Qty: 100 12RF Rx Instructions: Use as directed for insulin administration 3x daily. Thick-It Powder See Rx Instructions .ROUTE .COMPLEX Qty: 1020 3RF Dose Instruction: USE DIRECTED TO MAKE LIQUID EXTREMLY THICKENED Rx Instructions: USE DIRECTED TO MAKE LIQUID EXTREMLY THICKENED hydrocodone-acetaminophen 7.5-325 mg tablet 1 tab PO Q6H PRN (Reason: pain) 30 Days Qty: 120 0RF naloxone [Narcan] 4 mg/actuation spray,non-aerosol 1 spray intranasal Q3M Qty: 2 2RF Rx Instructions: spray 1 dose into ONE nostril; alternate nostrils w each dose until help arrives (DME) WHEELCHAIR WITH SEAT BELT AND HARNESS See Rx Instructions .Route .MEDSUPPLY Qty: 1 0RF Rx Instructions: Wheelchair bound, cognitively impaired, multiple previous falls from wheelchair. amlodipine 10 mg Tablet 10 mg PO DAILY@09 multivitamin with folic acid [Daily-Sean (with folic acid)] 400 mcg tablet 1 tab PO DAILY@09 lurasidone 120 mg tablet 60 mg PO BID atorvastatin 10 mg tablet 10 mg PO BEDTIME escitalopram oxalate 10 mg Tablet 15 mg PO DAILY fenofibrate 160 mg tablet 160 mg PO DAILY DEKAs Essential 600 mcg-50 mcg- 101 mg-1,000mcg Capsule 1 cap PO DAILY Glucerna Liquid 1 ea PO PRN PRN (Reason: REFUSING MEALS ) hydralazine 10 mg Tablet 10 mg PO Q6H 30 Days Qty: 120 0RF polyethylene glycol 3350 17 gram Powder In Packet 17 g PO DAILY PRN (Reason: constipation) 30 Days Qty: 30 0RF isosorbide mononitrate 60 mg tablet extended release 24 hr See Rx Instructions .ROUTE .COMPLEX Qty: 30 0RF Dose Instruction: TAKE 1 TABLET BY MOUTH EVERY DAY FOR BLOOD FLOW; check BP PRIOR TO ADMIN, HOLD IF LESS TAHN 90/60, HOLD FOR DIALYSIS Rx Instructions: TAKE 0.5 TABLET BY MOUTH EVERY DAY FOR BLOOD FLOW; check BP PRIOR TO ADMIN, HOLD IF LESS TAHN 90/60, HOLD FOR DIALYSIS midodrine 5 mg tablet 5 mg PO TID PRN (Reason: sbp<90 or dbp<60 with dialysis) 30 Days Qty: 60 0RF Rx Instructions: only give on dialysis days, to be used for hypotension associated with dialysis acetaminophen [Tylenol] 325 mg Tablet 650 mg PO QID PRN (Reason: Pain) ondansetron 4 mg tablet,disintegrating 4 mg PO Q6H PRN (Reason: nausea and vomiting) Qty: 10 0RF cetirizine 10 mg tablet 10 mg PO BEDTIME famotidine 20 mg tablet 20 mg PO BID aspirin 325 mg tablet,delayed release (DR/EC) 325 mg PO DAILY benztropine 1 mg tablet 1 mg PO BID aripiprazole 15 mg tablet 15 mg PO QAM Discharge Orders: Discharge ED (Routine); Ordered 08/01/25 Ordered By: Hamilton Kendall Referrals: Valente Harding DO [Primary Care Provider, Family Practice] Discharge Diet: Usual diet Discharge Activity: Resume usual activity Patient Instructions: Opioid Safety, Pain Management, Patient Portal & Kaye Instructions Activity Restrictions/Additional Instructions: [facility] today. It is very important that you follow up as instructed or that you return to the Emergency Department should you have concerns or if your condition changes or worsens in any way. Emergency department visits are focused on emergent conditions, in some cases you may require further evaluation on an outpatient basis. You were seen in the emergency room after a fall. X-ray of your hip and pelvis as well as CT of the pelvis did not show any fractures. Your right femur was also x-rayed as well as chest cervical spine and a CT of your head all of which were negative for any acute injuries. Return to the snf with your usual care. (Please note that included in your discharge packet is information concerning opioid safety and pain management. This information is given to all patients were discharged from the ER regardless of their discharge diagnosis or the medicines they usually take or are prescribed.) Print Language: Italian Coding Level of Care Code ED Inside [employer] for Maria R Garrison
--- NOTE | 2025-08-01 12:16 | XRR_ITS ---
PROCEDURE INFORMATION: Exam: XR Left Femur Exam date and time: 08/01/2025 1:32 PM Age: 55 years old Clinical indication: Injury or trauma; Fall; Blunt trauma; Thigh or upper leg; Left TECHNIQUE: Imaging protocol: Radiologic exam of the left femur. Views: 2 views. COMPARISON: CT abdomen pelvis con [id number] 01/23/2025 6:17 PM FINDINGS: Bones/joints: Chronic proximal fibular deformity. No acute fracture of the left femur. Soft tissues: Unremarkable. XR/XR femur LT min 2V* [id number] IMPRESSION: Chronic proximal fibular deformity. No acute fracture of the left femur. If symptoms persist correlation with CT/MRI recommended.
--- OUTSIDE RECORDS SUMMARY | 2025-08-01 12:20 | XMS_ITS | Clinical Summary ---
Author Organization [facility] Address [address] [place] [place] [address] Phone Care Team Providers Care Injury/Safety Hazard Assessment Name Role Phone Unavailable Primary Care Provider [...] directed 03/21/20 24 Active Narcan 4 mg/actuation Levasy, Non-Aerosol CALL 911, USE 1 SPRAY IN [...] 09/04/2013, 10/01/2012 Medical Devices Implanted Type Area Belt Lacer Device Identifier Shelf Expiration Date Model / Serial / Lot Clip Ligating Horizon Sm Ti [id number] - Csc - [id number] Implanted:Qty: 6 on 04/24/2024 by Tripp Cervantes MD at [facility] Clip Left: Arm [employer] 10/21/2028 [id number] / / [id number] Clip Ligating Horizon Med Ti [id number] - Csc - [id number] Implanted:Qty: 2 on 04/24/2024 by Tripp Cervantes MD at [facility] Clip Left: Arm [employer]- [employer] S[employer] 10/15/2028 [id number] / / [id number] Insurance MEDICAID [place] Advance Directives For more information, please contact: [phone] * Full Code (Latest Code Status on File) Date Activated Date Inactivated Comments 04/24/2024 9:15 AM 04/24/2024 5:21 PM
--- OUTSIDE RECORDS SUMMARY | 2025-08-01 12:20 | XMS_ITS | Data Portability ---
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, [address], 17:35:43 Referral None recorded. Procedures None recorded. Surgeries None recorded. Imaging None recorded. Medication Orders cetirizine 10 mg tablet 2024 025 [facility], [address] [place] [address], [address], 14:51:13 clonazepam 0.5 mg tablet 2024 025 [facility], [address] [place], [address], 5 14:47:36 gabapentin 300 mg capsule 2024 025 [facility], [address] [place] [address], [place], [address], 14:32:33 hydralazine 50 mg tablet 2024 025 [email or web address], [address] [place] [address], [address], 5 12:25:27 Uniderm Moisturizer lotion 2024 025 [facility], [address] [place] [address], [address], 5 13:30:18 hydralazine 50 mg tablet 2024 025 [facility] [address] [place] [address], [address], 5 12:25:27 Patient TargetsNo targets recorded. Patient Instructions Encounter Date Encounter Id Patient Instructions Last Modified By Organization Details Last Modified Time 12/24/2024 [id number] Time spent with patient and coordination of [...] ant featu res) is prese nt. [facility] e that a perso n with a [...] of 10,00 0 [facility]iv [facility]ual [facility] [place] risk for color ectal cance r [...] asymp tomat ic indiv idual s at [place] risk for color ectal cance r. [...] 112:1 016-1 030. TEST DESCR IPTIO N: [place] site algor ithmi c cheo sis of [...] years or older , who are at [facility] for color ectal cance r (CRC) . Colog uard has been appro jean marie for use by the U.S. FDA. The perfo rmanc e of Colog uard was estab lishe d in a cross secti onal study of [facility] adult s aged 50-84 . Colog uard [...] study of 0 indiv idual s at [facility] for color ectal cance r who were scree mayr with both Colog uard and colon oscop [...] at www.c ana aiyana.c om. Not Available [facility] [address], [place], [address], 11/22/2024 06:25:35 01/13/20 25 01/16/2025 CARBA MAZEP INE, TOTAL carbamazepin e, total 7.7 mcg/m L 4.0-12 .0 This test was devel tejas and its cheo tical perfo rmanc e shanel cteri stics have been deter mined by [facility] [place]. It has not been clear ed or appro jean marie by the U.S. Food and Drug Admin istra tion. This assay has been valid ated pursu ant to the CLIA regul ation s and is used for clini artem purpo ses. Not Available [facility] [address] [place], [address], 01/16/2025 17:35:43 Result Notes None recorded. Problems Name Problem SNOMED Code Status Onset Date Resolution Date Notes Provider Name and Address Organization Details Recorded Time Essential hypertens ion 46495695 Active 2022 KIMMIE zahng [facility] L.LTimothyCTimothy 3 10:39:35 Depressiv e disorder 10912628 Active 2022 KIMMIE zhang [facility], Shane.LTimothyCTimothy 3 10:39:35 Anxiety 13943296 Active 2022 KIMMIE zhang [facility], L.LTimothyCTimothy 3 10:39:35 Hyperlipi demia 11041597 Active 2022 KIMMIE zhang [facility] 3 10:39:35 Involunta ry movement 098287416 Active 2022 KIMMIE zhang, [facility] 3 10:39:35 Dry skin 63355151 Completed 202212/18/2024 Riya Winkler leatha, [facility] 5 10:09:09 Seizure 42088747 Active 2022 KIMMIE zhang, [facility] 3 10:39:35 Schizophr enia 30626142 Active 2022 KIMMIE zhang, [facility] 3 10:39:35 Type 1 diabetes mellitus 77126844 Active 2022 KIMMIE zhang, [facility] 3 10:39:35 Bilateral hearing loss 32053373 Active 2022 KIMMIE zhang, [facility] 3 10:39:35 Physical deconditi oning 237503697052 02 Completed 202212/18/2024 Riya Winkler leatha [facility] 5 10:12:56 Daytime somnolenc e 066049662792 Active 2022 Riya Winkler leatha [facility] 5 10:10:32 Insomnia 710434232 Completed 202212/18/2024 Riya Winkler leatha, [facility] 5 10:13:14 Hypoglyce digna 579578074 Active 2022 Riya zhang [facility] 5 10:11:40 Chronic kidney disease stage 5 020457262 [facility] 20[facility] 10:10:14 Increased frequency of urination 200603201 Completed 202312/18/2024 [facility] 5 10:11:50 Dry skin dermatiti s 865187618 Completed 202312/18/2024 [facility] 5 10:20:14 Dry skin dermatiti s 383084461 Active 2023 [facility] 5 10:20:14 Low back pain 604284752 Active 2023 [facility] 5 10:11:57 Compressi on fracture of lumbar spine 663080805 Active 2023 Riya Winkler [facility] 5 10:10:55 Thickened nails 341031170 Active 2023 Riya Winkler [facility] 5 10:12:43 Gastroeso phageal reflux disease 566848616 Active 2023 [facility] 5 10:11:34 Spinal stenosis of lumbar region 16365158 Active 2023 [facility] 5 10:12:09 Chronic pain 67901777 Active 2023 Riya Winkler [facility] 5 10:10:21 Type 2 diabetes mellitus 06420523 Active 2023 Riya Winkler null, [facility] 5 10:13:19 Chronic insomnia 014075014 Active 2023 [facility] 5 10:10:08 Strain of rotator cuff of shoulder 416862634 Completed 202312/18/2024 Riya zhang, [facility] 5 10:12:28 Chronic back pain 402757075 Active 2023 Riya Peterson leatha, [facility] 5 10:10:04 Weakness of bilateral lower limb Active 2023 [facility] 10:13:37 Bilateral shoulder joint pain 043554003329 99747 Active 2023 [facility] 5 10:09:39 Syncope 860720494 Completed 202312/18/2024 [facility] 5 10:12:37 Recurrent falls 306879201 Active 2023 Riya Peterson leatha [facility] 5 10:12:03 Chapping of lips 941081480 Completed 202412/18/2024 [facility] 5 10:20:24 Chapping of lips 032082805 Active 2024 [facility] 5 10:20:24 Altered mental status 902129469 Active 2024 Riya Peterson leatha [facility] 5 10:09:28 Dysphagia 82546757 Active 2024 Riya zhang, [facility] 5 10:11:20 Romina steve 361551178 Active 2024 Connor Sneed [facility] 5 14:30:35 Pressure injury of sacral region of back stage II Active 2024 Connor zhang [facility] 5 14:30:42 Allergic rhinitis 27638416 Active 2024 Nj Gilliam MD [address] [place] [address], [address] , [facility] 5 16:01:58 Problem Notes None recorded. Medical Equipment None Reported. Allergies Allergen ID Allergen Name Allergen Category Reaction Reaction Severity Criticality Documentation Date Start Date Code Code System Note Provider Name and Address Organization Details Recorded Time 99571 No known allergy (situatio n) Not available Not available Not available Not available 05/13/2024 83575 6003 SNOMED Briana Mathur [facility] 4 07:57:56 No known drug [...] 2024 active not on current emr through [facility]. Not Available Not Available Not Available hydrocodo [...] 2024 active not on current emr through [facility]. Not Available Not Available Not Available docusate [...] completed Not Available Not Available Not Available [place] Cough Drops 3.2 mg Take 1 lozenge [...] % 97 % 73 /min 144/84 mm[Hg] [facility] 12:20:00 Date Recorded Body height Respiratory rate Body temperature Heart rate Oxygen saturation Oxygen saturation in Arterial blood by Pulse oximetry Systolic And Diastolic Provider Name and Address Organization Details Last Updated DateTime 175.26 cm 18 /min 97.5 [degF] 76 /min 97 % 97 % 142/78 mm[Hg] Connor Sneed [facility] 12:20:44 Date Recorded Body height Body temperature Systolic And Diastolic Provider Name and Address Organization Details Last Updated DateTime 02/13/2025 175.26 cm 97.8 [degF] 140/80 mm[Hg] [facility] 02/13/2025 12:05:06 Date Recorded Body height Body mass index (BMI) Body weight Body temperature Oxygen saturation Oxygen saturation in Arterial blood by Pulse oximetry Heart rate Systolic And Diastolic Provider Name and Address Organization Details Last Updated DateTime 175.26 cm 17.9 kg/m2 64916.6 8 g 97.7 [degF] 97 % 97 % 90 /min 116/78 mm[Hg] [facility] 15:30:11 Social History Question Answer Notes LastModified by Organizat ion Details LastModified Time Tobacco Smoking Status Current Every Day Smoker Riya zhang [facility] 09/09/2024 10:25:05 What Is Your Level Of Caffeine Consumption? Moderate [email or web address] Information not available 12/24/2024 What Was The Date Of Your Most Recent Tobacco Screening? 03/10/2025 [email or web address] Information not available 03/10/2025 Which Types Of Nicotine-free Products Have You Used? Vape [email or web address] Information not available 09/09/2024 Sex: Unknown Functional Status Question Answer Note LastModified by Organizat ion Details LastModified Time Do you use any illicit or recreational drugs? No [email or web address] Information not available 09/09/2024 What is your level of alcohol consumption? None [email or web address] Information not available 09/09/2024 Do you or have you ever used any nicotine-free cigarettes, vape, or chewing tobacco? Yes [email or web address] Information not available 09/09/2024 Mental Status None recorded. Family History Nothing Reported. Medical History No medical history recorded. Immunizations Vaccine Type Date Status Note Provider Nam e and Address Organization Details Recorded Time COVID-19, mRNA, LNP-S, PF, 100 mcg/0.5mL dose or 50 mcg/0.25mL dose 1 completed KIMMIE zhang [facility] 03/16/2023 17:17:02 COVID-19, mRNA, LNP-S, PF, 100 mcg/0.5mL dose or 50 mcg/0.25mL dose 1 completed KIMMIE zhang [facility] 03/16/2023 17:17:02 pneumococcal polysaccharide PPV23 5 completed KIMMIE zhang [facility] 03/16/2023 17:17:02 influenza, unspecified formulation 1 completed KIMMIE zhang [facility] 03/16/2023 17:17:02 Tdap 5 completed KIMMIE zhang [facility] 03/16/2023 17:17:02 Tdap 3 completed KIMMIE zhang [facility] 03/16/2023 17:17:02 Influenza, split virus, trivalent, preservative 3 completed KIMMIE zhang, [facility] 03/16/2023 17:17:02 Hep B, adult 4 completed KIMMIE HERZOG null, [facility] 03/16/2023 17:17:02 Hep B, adult 3 completed KIMMIE HERZOG null, [facility] 03/16/2023 17:17:02 Hep A, adult 3 completed KIMMIE HERZOG null, [facility] 03/16/2023 17:17:02 Influenza, split virus, quadrivalent, PF 1 completed KIMMIE zhang, [facility] 03/16/2023 17:17:02 Influenza, split virus, quadrivalent, PF 8 completed KIMMIE HERZOG null, [facility] 03/16/2023 17:17:02 Influenza, split virus, quadrivalent, PF 3 completed MELINA zhang, [facility] 06/14/2023 14:48:35 Past Encounters Encounter ID Performer Location Encounter Start Date Encounter Closed Date Diagnosis/Indication Diagnosis SNOMED-CT Code Diagnosis ICD10 Code Diagnosis IMO Codes Diagnosis Note [id number] Nj Gilliam MD [facility] ([facility]) [address] [place] [address] 03/16/2023 17:00:32 03/16/2023 17:55:10 Type 1 diabetes mellitus 48769457 E10.8 Continue insulin. Order Dexcom. Impaired mobility 333352 05 Z74.09 We will send referral for PT and OT Bilateral hearing loss 29359789 H91.93 Depressive disorder 5938 9007 F32.A Concerned that the Lexapro may be contribute to the patient's insomnia. Recommend coming off the medication . We will readdress this at next visit. Anxiety 63027457 F41.9 Essential hypertension 39298543 I10 Blood pressure is currently controlled . Hyperlipidemia 13882953 E78.5 Involuntary movement 267 845270 R25.9 Schizophrenia 37877216 F 20.9 Recommend that the patient be establishe d with psychiatry Seizure 03746238 R56.9 Continue antiseizur e medication s. [id number] Nj Gilliam MD [facility] ([facility]) [address] [place] [address] 03/23/2023 16:54:47 03/23/2023 18:09:58 Type 1 diabetes mellitus 98682520 E10.8 We will add sliding scale insulin [...] not going to eat within 15 minutes. [id number] JOEL CASTILLO [facility] ([facility]) [address] [place] [id number] 03/30/2023 13:48:47 04/14/2023 21:36:37 Chest pain 84213124 R07.9 Due to elevated BP over the past 18 hours, DAMIAN, increased fatigue, and chest pain that radiates to the left arm, referring to ED. Report called by VU Parra to [facility] ED. Caregivers agreed to take patient to ED. Will follow up with PCP pending ED discharge and diagnosis. [id number] Dariusz Preciado MD [facility] ([facility]) [address] [place] [id number] 04/06/2023 09:49:54 04/06/2023 11:31:07 Essential hypertension 46781105 I10 d/c lisinopril /hctzchlor thalidone Uncontroll ed type 1 diabetes mellitus 603413129 E10.65 Chest pain 94535949 R07. 9 [id number] Dariusz Preciado MD [facility] ([facility]) [address] [place] [id number] 04/16/2023 12:17:59 04/16/2023 13:56:08 Urinary incontinence 992766291 R32 Uncontroll ed type 2 diabetes mellitus 300399858 E11.65 ssi changedif fsbs isabove 400 unitsreche ck fsbs q 2 hours and give sliding scale as written. once under 300 resume fsbs qac and qhs Essential hypertension 05892383 I10 at last visit d/c lisinopril /hctzchlor thalidoneh as some lower bps now. in a much safer range overall will leave further fine tuning and possible prn to his pcp. [id number] Nj Gilliam MD [facility] ([facility]) [address] [place] [id number] 04/30/2023 12:12:50 04/30/2023 16:54:46 Bilateral hearing loss 35841046 H91.93 We will send referral to audiologis t to discuss hearing loss and hearing aids. Physical deconditioning 8067737824 9102 R68.89 Patient does have significan t physical disability but this would likely improve with therapy. We will also provide order today for walk for with seat to help him ambulate easier and safer. Daytime somnolence 27444 06458 00 R40.0 Likely related to medication s. The likely culprits is either clonidine and/or gabapentin . We will start by stopping clonidine and monitoring blood pressure. We will address any blood pressure issues coming off the medication . If no improvemen t is noted that gabapentin may be the likely culprit Insomnia 052717201 G47.0 0 The patient is sleeping a lot during the day and having trouble sleeping at night. We will start melatonin to see if this helps. We will consider other sleep agents if necessary. Type 1 mindy betes mellitus 76335765 E10.8 Continue blood sugar management [id number] Nj Gilliam MD [facility] ([facility]) [address] [place] [id number] 05/23/2023 15:41:39 05/23/2023 17:05:31 Hypoglycemia 595566034 E16.2 patient was only briefly evaluated and sent to the ER due to mental status changes 2/2 hypoglycem ia. [id number] Nj Gilliam MD [facility] ([facility]) [address] [place] [id number] 06/14/2023 14:03:23 06/14/2023 16:32:37 Insomnia 597330889 G47.00 The patient has had some mild improvemen t with melatonin so we will add trazodone to help with attaining sleep. Essential hypertension 99973683 I10 Blood pressure is currently controlled . Hyperlipidemia 40138993 E78.5 We will check lipids today. Type 1 mindy betes mellitus 13169052 E10.8 Continue blood sugar management Active or passive immunization 067185332 Z23 Flu shot given Tuberculos is screening 954823712 Z11.[address] TB test next week as needed for his shelter status. Adult heal th examination 385146081 Z00.00 Overall the patient is fairly stable. Was still having some fluctuatio n in his blood sugars but this is being managed well by the shelter. Patient is ambulating more and working with physical therapy. No other changes needed at this time. [id number] Nj Gilliam MD [facility] ([facility]) [address] [place] [id number] 5 07/13/2023 11:14:18 07/13/2023 12:33:18 Type 1 diabetes mellitus 07079617 E10.8 Discussed blood sugar management with patient [...] . Chronic ki dney disease stage 5 381192976 N18.5 Patient has significan t elevated creatinine and low GFR consistent with stage V chronic kidney disease. Nephrology did not want to see the patient at [facility] so we will send referral to new facility. [id number] Nj Gilliam MD [facility] ([facility]) [address] [place] [id number] 09/21/2023 10:09:03 09/21/2023 15:55:12 Essential hypertension 45988889 I10 Blood pressure is currently controlled . Type 1 mindy betes mellitus 80072709 E10.8 Patient's blood sugars are doing much better. Discussed the importance of following diabetic diet and monitoring blood sugars especially given his kidney disease. Chronic ki dney disease stage 5 629359586 N18.5 Continue to follow with nephrology . Patient will likely need dialysis at some point. Discussed the importance of making appointmen ts with the patient and he expresses understand ing. [id number] Nj Gilliam MD [facility] ([facility]) [address] [place] [id number] 10/17/2023 10:12:44 10/17/2023 12:54:25 Tuberculosis screening 032644612 Z11.[address] TB test [id number] Nj Gilliam MD [facility] ([facility]) [address] [place] [id number] 5 11/02/2023 09:29:48 11/02/2023 13:24:36 Increased frequency of urination 262132527 R35.0 Will check UA to make sure that there is no signs of infection. Otherwise we will provide bedside commode and depends prescripti ons today. Type 1 mindy betes mellitus 98989893 E10.8 Continue current sliding scale and follow-up with Dr. Cordova. [id number] Nj Gilliam MD [facility] ([facility]) [address] [place] [id number] 5 11/20/2023 14:54:47 11/20/2023 16:31:57 Dry skin dermatitis 176451884 L85.3 Schizophrenia 45010615 F 20.9 Continue follow-ups with psychiatry but we will go ahead and increase his Abilify Type 1 mindy betes mellitus 00375083 E10.8 Continue current sliding scale and follow-up with Dr. Cordova. Essential hypertension 24470880 I10 Counseled the patient on the importance of monitoring blood pressure and he agrees that he will be compliant with blood pressure checks. Recommend checking blood pressure daily for the next week and provide those readings to ensure blood pressure is controlled . Chronic ki dney disease stage 5 772293081 N18.5 Continue to follow with nephrology . Patient will likely need dialysis at some point. Discussed the importance of making appointmen ts with the patient and he expresses understand ing. [id number] Nj Gilliam MD [facility] ([facility]) [address] [place] [id number] 5 01/09/2024 11:41:28 01/09/2024 12:26:05 Essential hypertension 34717592 I10 Patient needs to continue with his blood pressure management and follow-up with nephrology . Chronic ki dney disease stage 5 550097341 N18.5 Continue follow-up with nephrology . Will send referral for vascular surgeon for line placement. Patient is currently on board with dialysis but he does have a history of noncomplia nce. Central line placement initially is recommende d for this patient and consider fistula for long-term dialysis. Low back pain 091158678 M54.50 On his recent fall will obtain x-rays for further evaluation . Physical deconditioning 4622753674 9102 R68.89 Patient does have significan t physical disability but this would likely improve with therapy. [id number] Nj Gilliam MD [facility] ([facility]) [address] [place] [id number] 01/14/2024 16:04:49 01/15/2024 12:07:09 Compression fracture of lumbar spine 421592151 M48.56XD Will send him pain medication to help with pain management . It is recommende d that we proceed with MRI for further evaluation of his back. Chronic ki dney disease stage 5 380382095 N18.5 Will check labs today including. B surface imaging as requested. [id number] Nj Gilliam MD [facility] ([facility]) [address] [place] [id number] 5 01/23/2024 10:57:15 01/23/2024 11:58:36 Thickened nails 227126440 Q84.5 Sent referral to podiatry for foot and nail care. Located nail on the partially avulsed wound was trimmed and wrapped. No further interventi on at this time. Compressio n fracture of lumbar spine 014136135 M48.56XD Patient has MRI scheduled for January 29. Will send in referral to Dr. Simmons for follow-up after his MRI. It was instructed to allow for assistance with transfer and position. The patient expresses understand ing. If care is exceeding the abilities of current residence and senior living placement would be recommende d. Recommend pursuing [facility] ip given the patient's poor insight. [id number] Nj Gilliam MD [facility] ([facility]) [address] [place] [id number] 5 02/05/2024 12:48:51 02/05/2024 14:28:26 Chronic pain 39765776 G89.29 Will continue gabapentin daily at bedtime. Continue aspirin every day. Gastroesop hageal reflux disease 036624619 K21.9 Will start Pepcid to help control his reflux symptoms. Spinal kamron nosis of lumbar region 64938385 M48.061 Reviewed MRI results with patient and caregivers . Referral pending. Chronic ki dney disease stage 5 846314183 N18.5 Continue nephrology follow-up and dialysis as planned. Caregivers have plan to evaluate catheter daily. [id number] Nj Gilliam MD [facility] ([facility]) [address] [place] [id number] 5 03/04/2024 12:34:34 03/04/2024 13:00:01 Low back pain 723951038 M54.50 He is more due to transfers than anything. Continue to use gait belt for safety. Start physical therapy to help rehab and hopefully with pain relief. Essential hypertension [id number] I10 Patient needs to continue with his blood pressure management and follow-up with nephrology . Type 1 mindy betes mellitus 99203062 E10.8 Continue current sliding scale and follow-up with Dr. Cordova. End stage renal failure on dialysis 176290582 Z99.2 Continue dialysis. [id number] Nj Gilliam MD [facility] ([facility]) [address] [place] [address] [id number] 5 03/26/2024 11:49:47 03/26/2024 12:25:50 Chronic insomnia [id number] F51.04 Increase his trazodone to 150 mg nightly Type 1 mindy betes mellitus 61691277 E10.8 Continue current sliding scale and follow-up with Dr. Cordova. Prescripti on sent to the pharmacy with sliding scale attached and the maximum daily insulin usage. Strain of rotator cuff of shoulder 625336816 S46.011A Likely a strain of the rotator cuff. Recommend physical therapy initially. [id number] Nj Gilliam MD [facility] ([facility]) [address] [place] [address] [id number] 5 04/18/2024 12:35:41 04/21/2024 09:08:28 Chronic pain 46644411 G89.29 Will continue gabapentin daily at bedtime. Continue aspirin every day. We will add hydrocodon e daily as needed. Anxiety 60923958 F41.9 Will provide clonazepam to use on dialysis days. Diarrhea 01309089 R19.7 Discussed using loperamide as needed to help with diarrhea. Impaired mobility 651407 05 Z74.09 The patient has a significan t issues with mobility and requires a manual wheelchair . He needs a new order for a new wheelchair given the condition of his current 1. [id number] Nj Gilliam MD [facility] ([facility]) [address] [place] [address] [phone] 5 04/29/2024 14:33:12 04/29/2024 15:41:32 Low back pain 688989000 M54.50 Continue with pain medication s. The patient would likely benefit from a wedge pillow. Will send order to home and see if insurance will help cover a wedge pillow for the patient. Screening for malignant neoplasm of colon 177058282 Z12.11 Will send order for general surgery to the hospital for screening colonoscop y. Screening for malignant neoplasm of prostate 342918124 Z12.5 Will check a PSA today and await colonoscop y for prostate exam. Hyperlipid emia screening 587929418 Z13.220 Physical deconditioning 3713518892 9102 R68.89 Patient does have significan t physical disability and has not been able to ambulate with a walker and uses a wheelchair for mobility. [id number] Nj Gilliam MD [facility] ([facility]) [address] [place] [address] [phone] 5 07/01/2024 16:28:48 07/01/2024 17:46:13 Screening for malignant neoplasm of colon 626176037 Z12.11 Discussed concerns about the prep and the patient's likely to refuse and the caregivers agree that this may not be the best option for the patient. Discussed Cologuard and they feel that the patient would likely be more compliant with it. Chronic pain 66472548 G8 9.29 Discussed pain medication s and there is not a good option for a patch for the patient. Will continue with current pain management at this time. [id number] Nj Gilliam MD [facility] ([facility]) [address] [place] [address] [phone] 5 07/31/2024 15:55:48 08/01/2024 11:58:51 Dysuria 10077139 R30.0 Patient was unable to give a urine sample today. Concerned that the blood is coming from the urine based on her provided by caregiver that showed blood in the anterior portion of the toilet. We will send home collection kit with the patient to collect a UA and bring it back for evaluation . Follow-up pending those results. [id number] Nj Gilliam MD [facility] ([facility]) [address] [place] [address] [phone] 08/05/2024 16:42:27 08/07/2024 10:38:38 Active or passive immunization 501880078 Z23 Chronic back pain 730810 002 G89.29 Will add lidocaine patches on top of his other interventi ons to see if this will help with his pain during dialysis. Schizophrenia 64362263 F 20.9 Continue follow-ups with psychiatry . Will obtain lab work as recommende d by psychiatry . Dry skin dermatitis 2600 13383 L85.3 Eucerin cream changed to as needed. Bilateral shoulder joint pain [id number] 3104442 M25.511 M25.512 Patient is having significan t difficulty operating a manual wheelchair . The patient definitely would benefit from a power wheelchair given this disability . Weakness o f bilateral lower limb 5462399612 27721 M62.81 Patient continues to utilize a wheelchair for mobilizati on and to address ADLs and to be able to go to the bathroom and other parts of his house. Will attempt to obtain powered wheelchair for him as this would significan tly help the patient. Patient is capable of operating a power wheelchair without difficulty . [id number] Nj Gilliam MD [facility] ([facility]) [address] [place] [address] [id number] 5 09/09/2024 10:16:16 09/09/2024 10:45:10 Syncope 161254993 R55 Likely related to blood pressure. Continue with blood pressure checks at shift change. Encouraged the patient to increase fluid intake. At increas ed risk for falls 603176082 Z91.81 It would not be unreasonab le to have an alarm for his wheelchair that they can utilize. The patient does not necessaril y try to get up out of the wheelchair but he has placed him in situations where he has fallen out. This may help minimize the risk of fall. Will send order to home. Recurrent falls 60276462 2 R29.6 [id number] RAKESH KUMAR [facility] ([facility]) [address] [place] [address] [id number] 5 09/16/2024 11:19:48 09/16/2024 12:26:21 Viral upper respiratory tract infection 394181031 J06.9 rxn for cough drops and dayquil provided. Med list updated.Re turn if pt develops fever, sob, or symptoms worsen. [id number] RAKESH KUMAR [facility] ([facility]) [address] [place] [address] [id number] 5 10/07/2024 13:39:43 10/08/2024 11:43:03 Dysuria 35381994 R30.0 Acute urin wilfredo tract infection 526698713 N39.0 UA results reviewed and discussed with pt. We will start antibiotic s. Pt will increase oral fluids. Return to office with no improvemen t or any problems. Go to ER with severe worsening or severe problems.W e will obtain urine culture [id number] Nj Gilliam MD [facility] ([facility]) [address] [place] [address] [phone] 5 10/31/2024 11:05:45 10/31/2024 12:08:04 Chapping of lips 802720519 K13.0 Altered mental status 41 1144259 R41.82 Symptoms resolved with no further issues at this time. No concerns on today's examinatio n. Continue current interventi ons. [id number] Nj Gilliam MD [facility] ([facility]) [address] [place] [address] [phone] 5 11/11/2024 12:02:22 11/11/2024 13:09:01 Essential hypertension 38858255 I10 We will increase his hydralazin e to 50 mg 4 times daily. Chronic ki dney disease stage 5 496279711 N18.5 Continue nephrology follow-up and dialysis as planned. Caregivers have plan to evaluate catheter daily. Recurrent falls 36790667 2 R29.6 The patient continues to have recurrent falls and there is significan t concerns that his needs for his ADLs have exceeded the capability of his current living situation. The patient likely needs a higher level of care such as senior living. Currently the patient is his own guardian and he has not wanted to return to senior living. However, there is significan t concerns about his capacity to make appropriat e healthcare decisions. It is of my opinion that the patient is not capable of making appropriat e decisions involving his health care. [id number] Nj Gilliam MD [facility] ([facility]) [address] [place] [address] [id number] 5 12/24/2024 11:58:51 12/24/2024 13:11:11 Dry skin dermatitis 846421812 L85.3 Continue motion to right shoulder as needed. Prescripti on provided. Essential hypertension 24135296 I10 We will increase his hydralazin e to 50 mg 4 times daily. Edentulous 114985427 K08 .109 Oral exam performed today. No oral lesions noted. The patient is a dentulous. Type 2 mindy betes mellitus 37693722 E11.9 Continue with current diabetes management . Patient is seeing Dr. Cordova. Chronic ki dney disease stage 5 897789218 N18.5 Continue nephrology follow-up and dialysis as planned. Caregivers have plan to evaluate catheter daily. 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 The patient needs a hospital bed to help minimize pressure injuries as the 1 he currently has. 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 Continue with current wound care. We will send order to home health to help with management of this wound. Weakness o f bilateral lower limb 0478565771 82024 M62.81 Patient continues to utilize a wheelchair for mobilizati on and to address ADLs and to be able to go to the bathroom and other parts of his house. [id number] Nj Gilliam MD [facility] ([facility]) [address] [place] [address] [id number] 5 01/12/2025 15:01:14 01/13/2025 11:41:40 Long-term drug therapy 451367205 Z79.287 [id number] Nj Gilliam MD [facility] ([facility]) [address] [place] [address] [phone] 5 02/13/2025 11:48:00 02/13/2025 13:50:36 Chronic pain 32127924 G89.29 We will DC his hydrocodon e and continue his gabapentin Chronic ki dney disease stage 5 820333485 N18.5 Continue nephrology follow-up and dialysis as planned.. Essential hypertension 67735465 I10 Will hold blood pressure medication on the days of his dialysis to help prevent lows. Continue blood pressure medicine on the days that he is not on dialysis. Type 2 mindy betes mellitus 53180995 E11.9 Continue with current diabetes management . Patient is seeing Dr. Cordova. However, the patient is out of testing supplies so we will send orders for him. Weakness o f bilateral lower limb 2181626752 41290 M62.81 Patient utilizes a wheelchair for mobilizati on. We will provide a gait belt to help staff be able to mobilize the patient safer. Recurrent falls 59860472 2 R29.6 Patient has had a history of recurrent falls and would recommend that we make effort to help minimize this. Utilizing a seat belt for his wheelchair and alarms would be helpful in this regard. Will send orders for DME. [id number] Nj Gilliam MD [facility] ([facility]) [address] [place] [address] [phone] 5 03/10/2025 15:21:53 03/10/2025 16:17:23 Anxiety 14820543 F41.9 Continue clonazepam prior to dialysis as this has been helping. Allergic rhinitis 586208 04 J30.9 4434748 Will start cetirizine to help with allergy symptoms. Chronic ki dney disease stage 5 212910518 N18.5 Continue nephrology follow-up and dialysis as planned.. Essential hypertension 01944161 I10 Current blood pressure management seems to be working well for him. Type 1 mindy betes mellitus 22558743 E10.8 Continue current sliding scale and follow-up [...] Bernabe Member ID Guarantor Name 03/07/2025 [place] [facility] Tyrese Hany [id number] Tyrese Hany 03/07/2025 1 [place] Tyrese Hany [id number] Tyrese Hany Notes Date Note Type Note [...] since his ER visit. Nj Gilliam MD [address] [place] [address], [phone], [facility] 11/16/2024 08:47:07 12/24/2024 text/html Patient is Type 2 diabetic. Patient was hospitalized on 12/07/24 for pneumonia in both lungs. He was discharged on 12/12/24. His it programmer analyst, Lelia, and two of his caregivers accompany him today. They would like to discuss some concerns listed after his release from the hospital. The patient is getting ready to be transferred to a shelter that is able to handle his more [...] does not have teeth. Nj Gilliam MD [address] [place] [address], [phone], [facility] 12/27/2024 13:03:19 02/13/2025 text/html This is [...] causes some behavior concerns. Nj Gilliam MD [address] [place] [address], [phone], [facility] 02/17/2025 16:54:11 03/10/2025 text/html Today will be his last visit here. He will be switching to Dr. Harding multimedia teacher at [facility].Pt states his lungs hurt. Patient needs refills on several medications. Has been having persistent issues with allergies. Reynaga, everything else has been stable. She has been tolerating dialysis better and is not having low blood pressure readings. The patient has not been in the ER since last visit. Nj Gilliam MD [address] [place] [address], [phone], [facility] 03/12/2025 09:44:00
--- OUTSIDE RECORDS SUMMARY | 2025-08-01 12:20 | XMS_ITS ---
Author Name [facility], Clinic Address [address] [place] [id number] Phone [phone] Organization [facility], NA DOCUMENT DISCLAIMER Multiple document versions may exist, please be sure you review the latest version. The information in the [facility] Continuity of Care Document represents a summary of certain health and medical information. It may not contain the complete medical history for the patient and should be independently verified. The represented time in the document is Eastern Time. PROBLEMS Problem Code Status Onset Date Heart failure, unspecified I50.9 Active 2024 Chest pain, unspecified R07.9 Active March 14, 2024 Hypomagnesemia E83.42 Active March 07, 2024 Fever, unspecified R50.9 Active February 04 024 Encounter for immunization Z23 Active 2023 Hyperlipidemia, unspecified E78.5 Active February 05, 2024 Pain, unspecified R52 Active February 04 24 Iron deficiency anemia, unspecified D50.9 Activ e February 05, 2024 Secondary hyperparathyroidism of renal origin N25.81 Active February 05, 2024 Anemia in chronic kidney disease D63.1 Active February 05, 2024 Coagulation defect, unspecified D68.9 Active February 05, 2024 Encounter for fitting and ad justment of extracorporeal dialysis catheter Z49.01 Active February 05, 2024 End stage renal disease N18.6 Active February 05, 2024 Dependence on renal dialysis Z99.2 Active January 09, 2024 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 care 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 (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) use of aspirin Z79.82 Active January 09, 2024 intermediate (current) use of insulin Z79.4 Active January 09, 2024 Chronic kidney disease, stage 5 N18.5 Active January 09, 2024 Hypertensive chronic kidney disease with stage 5 chronic kidney disease or end stage renal disease I12.0 Active January 09, 2024 Anxiety disorder, unspecified F41.9 Active January 09, 2024 Depression, unspecified F32.A Active Apri l 2023 Schizophrenia, unspecified F20.9 Active A pril 2023 Nicotine dependence, unspecified, uncomplicated F17.20 0 Active January 09, 2024 Hyperlipidemia, unspecified E78.5 Active January 09, 2024 Type 1 diabetes mellitus wit h diabetic chronic kidney disease E10.22 Active January 09, 2024 Anemia in chronic kidney disease D63.1 Active January 09, 2024 ALLERGIES AND ADVERSE REACTIONS No Known Allergies SOCIAL HISTORY Tobacco Use Status Tobacco Type Unknown if ever consumed tobacco - Caregiver Characteristics No Information Available Characteristics of Home environment No Information Available Gender and Sex Information Gender Identity Sexual Orientation Male No Information Avail able MEDICATIONS Prescribed Medications for Dialysis Treatments Medication Instructions Dosage Route Start Date End Date Stat Acetaminophen PRN every 4 hours 650 mg Oral February 04, 2025 February 03, 2026 Active Darbepoetin Otto (Aranesp) During Dialysis, Every 4 weeks 25 mcg Intravenous - push July 06, 2025 July 05, 2026 Active Heparin Sodium (Porcine) 1,000 Units/mL Catheter Lock Arterial Post Dialysis, Every Treatment 2200 units Arterial Red Port March 30, 2025 March 29, 2026 Active Heparin Sodium (Porcine) 1,000 Units/mL Catheter Lock Venous Post Dialysis, Every Treatment 2300 units Venous Blue Port March 30, 2025 March 29, 2026 Active Heparin Sodium (Porcine) 1,000 Units/mL Systemic Bolus, Every Treatment, Total treatment minutes 180 5000 units Intravenous - push February 04, 2025 February 03, 2026 Active Vitamin D (Calcitriol) Oral Every Treatment 0.25 mcg Oral March 11, 2025 March 10, 2026 Active Home Medications Medication Instructions Dosage Route Start Date End Date Stat us acetaminophen 325 mg Take by mouth every four hours as needed for pain 2 tablet ORAL April 14, 2024 Active amlodipine 10 mg Take by mouth once a day 1 tablet ORAL February 06, 2024 Active Anti-Diarrheal (loperamide) 2 mg Take by mouth every eight hours as needed 1 capsule ORAL April 18, 2024 Active aripiprazole 15 mg Take by mouth once a day 1 tablet ORAL February 06, 2024 Active aspirin 325 mg Take by mouth once a day 1 tablet ORAL April 14, 2024 Active atorvastatin 10 mg Take by mouth every night 1 tablet ORAL February 06, 2024 Active baclofen 10 mg Take by mouth three times a day 1 tablet ORAL July 17, 2025 Active benztropine 1 mg Take by mouth twice a day 1 tablet ORAL February 06, 2024 Active carvedilol 12.5 mg by mouth twice a day 1 tablet ORAL January 30, 2025 Active cetirizine 10 mg by mouth every night at bedtime 1 capsule ORAL June 27, 2025 Active clonazepam 0.5 mg Take by mouth as directed 1 tablet ORAL April 18, 2024 Active Dekas Essential Take by mouth once a day 1 tablet by mouth March 17, 2025 Active escitalopram oxalate 10 mg Take by mouth once a day 1 1/2 tablet ORAL July 11, 2025 Active famotidine 20 mg Take by mouth twice a day 1 tablet ORAL February 06, 2024 Active fenofibrate 160 mg Take by mouth once a day 1 tablet ORAL February 06, 2024 Active gabapentin 300 mg Take by mouth three times a day as directed 1 capsule ORAL May 11, 2025 Active hydrocodone-acetam inophen 7.5-325 mg Take by mouth every six hours as needed for pain 1 tablet ORAL July 17, 2025 Active isosorbide mononitrate 60 mg Take by mouth once a day 1 tablet ORAL March 17, 2025 Active lidocain-me.salicy [id number]-hkpln 0.5-20-0.035-5% Apply to skin as directed 1 patch TOPICAL November 15, 2024 Active lisinopril 40 mg Take by mouth every evening 1 tablet ORAL May 12, 2025 Active lurasidone 120 mg Take by mouth twice a day 1/2 tablet ORAL April 14, 2024 Active Narcan 4 mg/actuation NASAL July 17, 2025 Active ondansetron HCl 4 mg Take by mouth every six hours for nausea/vomiting 1 tablet ORAL March 17, 2025 Active polyethylene glycol 3350(bulk) Take by mouth once a day as needed 17 gram by mouth January 30, 2025 Active trazodone 100 mg Take by mouth every night at bedtime 3 tablet ORAL July 11, 2025 Active VITAL SIGNS Post-Treatment Vital Signs Vital Sign Value Date / Time Blood Pressure-sitting 189/81 mmHg July 012024 08:09 AM Heart Rate 97 beats per minute July 17, 2025 08:09 AM Respiratory Rate 19 breaths per minute July 012024 08:09 AM Temperature 97.3 deg. F July 17, 2025 08:09 AM Weight Vital Sign Value Date / Time Estimated Dry Weight 52.6 kg July 17, 2025 11:59 PM Pre-Dialysis 53.50 kg July 17, 2025 08:09 AM Post-Dialysis 52.90 kg July 17, 2025 08:09 AM Other Other Value Date / Time Height 172 cm February 29, 2024 12: 00 AM Body Mass Index 17.78 kg/m2 July 24, 2025 12:56 PM HEALTH CONCERNS Tuberculosis Testing TST Date Administered TST Date Read TST Result 02/08/2024 02/11/2024 Negative (<5) mm LAB RESULTS Hematology Result Type Result Value Relevant Referen ce Range Interpretation Date Folate, Serum 7.2 ng/mL No Reference Ran ge Provided - December 03, 2024 Transferrin Sat. (Calc) 27 % 20 - 55 % - February 09, 2025 TIBC (Calc) 272 mcg/dL 185 - 515 mcg/dL - February 09, 2025 UIBC/TIBC 198 mcg/dL 155 - 355 mcg/dL - February 09, 2025 Platelets 332 1000/mcL 130 - 400 1000/mcL - February 09, 2025 WBC (No Diff) 5.51 1000/mcL 4.80 - 10.80 1000/mcL - February 09, 2025 Neutrophils 67.9 % 40.0 - 75.0 % - February 09 WBC (No Diff) 5.65 1000/mcL 4.80 - 10.80 1000/mcL - March 04, 2025 Transferrin Sat. (Calc) 22 % 20 - 55 % - March 04, 2025 Neutrophils 63.3 % 40.0 - 75.0 % - March 04, 025 Platelets 237 1000/mcL 130 - 400 1000/mcL - March 04, 2025 TIBC (Calc) 245 mcg/dL 185 - 515 mcg/dL - March UIBC/TIBC 191 mcg/dL 155 - 355 mcg/dL - March 04, 2025 Ferritin 1239 ng/mL 22 - 322 ng/mL High March 04, 025 Neutrophils 65.1 % 40.0 - 75.0 % - April 01 WBC (No Diff) 5.18 1000/mcL 4.80 - 10.80 1000/mcL - April 01, 2025 Platelets 244 1000/mcL 130 - 400 1000/mcL - April 01, 2025 Transferrin Sat. (Calc) 39 % 20 - 55 % - April 01, 2025 TIBC (Calc) 279 mcg/dL 185 - 515 mcg/dL - March UIBC/TIBC 169 mcg/dL 155 - 355 mcg/dL - April 01, 2025 MCH 30.3 pg 27.0 - 31.0 pg - May 06, 2025 RDW 14.4 % 11.5 - 14.5 % - May 06, 2025 MCHC 31.2 g/dL 30.0 - 36.0 g/dL - May WBC (No Diff) 4.20 1000/mcL 4.80 - 10.80 1000/mcL Low May 06, 2025 IZZY 4.2 % 0.0 - 4.0 % High May 06 25 Basophils 1.5 % 0.0 - 1.5 % - May 06 25 Lymphocytes 24.5 % 19.0 - 48.0 % - May 06, 2025 Neutrophils 61.4 % 40.0 - 75.0 % - May 06, 2025 Eosinophil 1.0 % 0.0 - 7.0 % - May 06 25 Monocytes 7.3 % 3.0 - 10.0 % - May 06, 025 TIBC (Calc) 278 mcg/dL 185 - 515 mcg/dL - May 06, 2025 Transferrin Sat. (Calc) 25 % 20 - 55 % - May 06, 2025 Iron 70 mcg/dL 45 - 160 mcg/dL - May UIBC/TIBC 208 mcg/dL 155 - 355 mcg/dL - May Platelets 186 1000/mcL 130 - 400 1000/mcL - 2024 Hemoglobin x 3 33.9 % 42.0 - 54.0 % Low May 06, 2025 Hemoglobin x 3 34.5 % 42.0 - 54.0 % Low May 20, 2025 Hemoglobin x 3 33.6 % 42.0 - 54.0 % Low May 27, 2025 Neutrophils 74.9 % 40.0 - 75.0 % - June 03, 2025 Lymphocytes 14.1 % 19.0 - 48.0 % Low June 03, 2025 Monocytes 7.1 % 3.0 - 10.0 % - June Eosinophil 0.8 % 0.0 - 7.0 % - June 03, 2025 Basophils 0.3 % 0.0 - 1.5 % - June 03, 2025 IZZY 2.8 % 0.0 - 4.0 % - June 03, 2025 WBC (No Diff) 6.16 1000/mcL 4.80 - 10.80 1000/mcL - June 03, 2025 MCH 30.8 pg 27.0 - 31.0 pg - June 03, 2025 MCHC 31.7 g/dL 30.0 - 36.0 g/dL - Junembe r 2024 RDW 15.7 % 11.5 - 14.5 % High June Transferrin Sat. (Calc) 38 % 20 - 55 % - June 03 Iron 97 mcg/dL 45 - 160 mcg/dL - June 03, 2025 TIBC (Calc) 257 mcg/dL 185 - 515 mcg/dL - Septemb er 2024 UIBC/TIBC 160 mcg/dL 155 - 355 mcg/dL - Junembe r 2024 Hemoglobin x 3 33 % 42.0 - 54.0 % Low Septemb er 2024 Platelets 219 1000/mcL 130 - 400 1000/mcL - Jun emb2024 Ferritin 1230 ng/mL 22 - 322 ng/mL High June 03, 2025 Hemoglobin x 3 32.1 % 42.0 - 54.0 % Low Septemb er 2024 Hemoglobin x 3 33.3 % 42.0 - 54.0 % Low Septemb er 2024 MCH 29.3 pg 27.0 - 31.0 pg - July MCHC 31.0 g/dL 30.0 - 36.0 g/dL - July 01, 2025 RDW 14.8 % 11.5 - 14.5 % High July 01, 2025 Hemoglobin x 3 31.5 % 42.0 - 54.0 % Low July 01, 2025 Platelets 149 1000/mcL 130 - 400 1000/mcL - Octo 2024 Neutrophils 77.4 % 40.0 - 75.0 % High July Lymphocytes 12.6 % 19.0 - 48.0 % Low July Monocytes 4.8 % 3.0 - 10.0 % - July 01, 2025 Eosinophil 1.4 % 0.0 - 7.0 % - July 01, 025 Basophils 0.8 % 0.0 - 1.5 % - July 01, 025 IZZY 3.1 % 0.0 - 4.0 % - July 01 WBC (No Diff) 6.54 1000/mcL 4.80 - 10.80 1000/mcL - July 01, 2025 UIBC/TIBC 146 mcg/dL 155 - 355 mcg/dL Low July 01, 2025 Iron 104 mcg/dL 45 - 160 mcg/dL - July TIBC (Calc) 250 mcg/dL 185 - 515 mcg/dL - July 01, 2025 Transferrin Sat. (Calc) 42 % 20 - 55 % - July 01, 2025 HGB 9.4 g/dL 14.0 - 18.0 g/dL Low July 08, 2025 Hemoglobin x 3 28.2 % 42.0 - 54.0 % Low July 08, 2025 HGB 10.8 g/dL 14.0 - 18.0 g/dL Low July 15, 2025 Hemoglobin x 3 32.4 % 42.0 - 54.0 % Low July 15, 2025 Metabolic/Renal Result Type Result Value Relevant Referen ce Range Interpretation Date Hemoglobin A1c 4.5 % 4.8 - 5.9 % Low March 04, 2025 BUN, Post 10 mg/dL 6 - 19 mg/dL - May 06, URR, Calc 74 % 65 - 80 % - May 06 BUN 38 mg/dL 6 - 19 mg/dL High May 06 Sodium 128 mEq/L 136 - 145 mEq/L Low May Potassium 5.0 mEq/L 3.5 - 5.1 mEq/L - May Creatinine, Serum 2.98 mg/dL 0.60 - 1.30 mg/dL High May 06, 2025 BUN/Creat Ratio 12.8 10.0 - 20.0 - May Chloride 95 mEq/L 96 - 108 mEq/L Low May 06, 2025 Bicarbonate 26 mEq/L 22 - 29 mEq/L - May 06, 2025 URR, Calc 76 % 65 - 80 % - June 03, 2025 Hemoglobin A1c 6.3 % 4.8 - 5.9 % High June 03, 2025 Creatinine, Serum 3.15 mg/dL 0.60 - 1.30 mg/dL High June 03, 2025 BUN 45 mg/dL 6 - 19 mg/dL High June Sodium 134 mEq/L 136 - 145 mEq/L Low June 03, 2025 BUN/Creat Ratio 14.3 10.0 - 20.0 - 2024 Chloride 98 mEq/L 96 - 108 mEq/L - June 03, 2025 Potassium 5.2 mEq/L 3.5 - 5.1 mEq/L High June 03, 2025 Bicarbonate 24 mEq/L 22 - 29 mEq/L - June 03, 2025 BUN, Post 11 mg/dL 6 - 19 mg/dL - June URR, Calc 80 % 65 - 80 % - July 01 BUN, Post 14 mg/dL 6 - 19 mg/dL - July 01, 2025 Creatinine, Serum 3.19 mg/dL 0.60 - 1.30 mg/dL High July 01, 2025 BUN 69 mg/dL 6 - 19 mg/dL High July 01, 2025 Sodium 136 mEq/L 136 - 145 mEq/L - July BUN/Creat Ratio 21.6 10.0 - 20.0 High July 01, 2025 Chloride 101 mEq/L 96 - 108 mEq/L - July Potassium 4.9 mEq/L 3.5 - 5.1 mEq/L - July Bicarbonate 27 mEq/L 22 - 29 mEq/L - July HD Adequacy Result Type Result Value Relevant Referen ce Range Interpretation Date Krt/V 0.00 No Reference Ran ge Provided - February 09, 2025 Krt/V 0.00 No Reference Ran ge Provided - February 16, 2025 Krt/V 0.00 No Reference Ran ge Provided - March 04, 2025 Krt/V 0.00 No Reference Ran ge Provided - April 01, 2025 wstdKt/V, residual 0.0 No Reference Range Provided - May 06, 2025 wstdKt/V 2.4 No Reference Ran ge Provided - May 06, 2025 Krt/V 0.00 No Reference Ran ge Provided - May 06, 2025 wstdKt/V without residual 2.4 No Reference Range Provided - May 06, 2025 spKt/V Gotch 1.51 No Reference Ran ge Provided - May 06, 2025 spKt/V (Daugirdas II) 1.52 No Reference Range Provided - May 06, 2025 eKt/V ([place]) 1.30 No Reference Range Provided - May 06, 2025 spKt/V (Daugirdas II) 1.64 No Reference Range Provided - June 03, 2025 wstdKt/V, residual 0.0 No Reference Range Provided - June 03, 2025 Krt/V 0.00 No Reference Ran ge Provided - June 03, 2025 spKt/V Got 1.63 No Reference Ran ge Provided - June 03, 2025 wstdKt/V without residual 2.5 No Reference Range Provided - June 03, 2025 wstdKt/V 2.5 No Reference Ran ge Provided - June 03, 2025 eKt/V ([place]) 1.41 No Reference Range Provided - June 03, 2025 Krt/V 0.00 No Reference Ran ge Provided - July 01, 2025 spKt/V (Daugirdas II) 1.84 No Reference Range Provided - July 01, 2025 wstdKt/V without residual 2.6 No Reference Range Provided - July 01, 2025 spKt/V Got 1.84 No Reference Ran ge Provided - July 01, 2025 wstdKt/V 2.6 No Reference Ran ge Provided - July 01, 2025 wstdKt/V, residual 0.0 No Reference Range Provided - July 01, 2025 eKt/V ([place]) 1.58 No Reference Range Provided - July 01, 2025 Bone/Mineral Result Type Result Value Relevant Referen ce Range Interpretation Date Magnesium 1.8 mg/dL 1.6 - 2.6 mg/dL - September 03, 2024 Magnesium 2.0 mg/dL 1.6 - 2.6 mg/dL - December 03, 2024 Vitamin D 25 Hydroxy 35.2 ng/mL 30 - 100 ng/mL - December 03, 2024 PTH-Intact, Plasma 538 pg/mL 16 - 80 pg/mL High Laron e 2024 Magnesium 1.9 mg/dL 1.6 - 2.6 mg/dL - March 04, 2025 PTH-Intact, Plasma 333 pg/mL 16 - 80 pg/mL High Aug ust 2024 Corrected Ca x P Product 34 0 - 54 - May 06, 2025 Ca x P Product 32 0 - 54 - May 06, 2025 Calcium, Total 8.6 mg/dL 8.4 - 10.2 mg/dL - 2024 Phosphorus 3.7 mg/dL 2.6 - 4.5 mg/dL - May PTH-Intact, Plasma 357 pg/mL 16 - 80 pg/mL High Sep 2024 Calcium, Total 9.0 mg/dL 8.4 - 10.2 mg/dL - Jun Phosphorus 4.3 mg/dL 2.6 - 4.5 mg/dL - June 03, 2025 Ca x P Product 39 0 - 54 - June 03, 2025 Alkaline Phosphatase 69 U/L 40 - 129 U/L - Se ptember 2024 Corrected Ca x P Product 40 0 - - June 03 Magnesium 1.8 mg/dL 1.6 - 2.6 mg/dL - June 03, 2025 Phosphorus 4.1 mg/dL 2.6 - 4.5 mg/dL - July Calcium, Total 9.0 mg/dL 8.4 - 10.2 mg/dL - 2024 Ca x P Product 37 0 - - July Corrected Ca x P Product 39 0 - 54 - July 01, 2025 Liver/Nutrition Result Type Result Value Relevant Referen ce Range Interpretation Date eNPCR 0.66 No Reference Ran ge Provided - May 06, 2025 Glucose 123 mg/dL 70 - 100 mg/dL High May 06, 2025 Total Protein 6.0 g/dL 6.0 - 8.5 g/dL - May 06, 2025 Albumin (BCG) 3.2 g/dL 3.5 - 5.2 g/dL Low May 06, 2025 Globulin (Calc) 2.8 g/dL 2.0 - 4.0 g/dL - 2024 A/G Ratio 1.1 1.0 - 2.0 - May 06 eNPCR 0.79 No Reference Ran ge Provided - June 03, 2025 Glucose 182 mg/dL 70 - 100 mg/dL High June 03, 2025 Total Protein 6.9 g/dL 6.0 - 8.5 g/dL - 2024 Albumin (BCG) 3.5 g/dL 3.5 - 5.2 g/dL - 2024 Globulin (Calc) 3.4 g/dL 2.0 - 4.0 g/dL - 2024 A/G Ratio 1.0 1.0 - 2.0 - June 03, 2025 Albumin (BCG) 3.3 g/dL 3.5 - 5.2 g/dL Low July 01, 2025 Total Protein 6.2 g/dL 6.0 - 8.5 g/dL - July 01, 2025 A/G Ratio 1.1 1.0 - 2.0 - July 01 Globulin (Calc) 2.9 g/dL 2.0 - 4.0 g/dL - 2024 Glucose 143 mg/dL 70 - 100 mg/dL High July eNPCR 1.18 No Reference Ran ge Provided - July 01, 2025 Immunochemistry Result Type Result Value Relevant Reference Range Interpre tation HCV s/co ratio 0.10 0.00 - 0.79 - December 03, 2024 Therapeutic Drugs Result Type Result Value Relevant Referen ce Range Interpretation Date Vancomycin, Trough 15.3 mcg/mL 10.0 - 20.0 mcg/mL - December 22, 2024 Vancomycin, Trough 14.0 mcg/mL 10.0 - 20.0 mcg/mL - December 29, 2024 Vancomycin, Trough 6.1 mcg/mL 10.0 - 20.0 mcg/mL Low January 05, 2025 Vancomycin, Trough 8.9 mcg/mL 10.0 - 20.0 mcg/mL Low January 12, 2025 Vancomycin, Trough 4.0 mcg/mL 10.0 - 20.0 mcg/mL Low January 19, 2025 Trace Elements Result Type Result Value Relevant Reference Range Interpre tation Date Aluminum 8 mcg/L 0 - 10 mcg/L - December 03 25 Aluminum < 5 mcg/L 0 - 10 mcg/L - June Infectious Diseases Result Type Result Value Relevant Referen ce Range Interpretation Date Hep B Surface Ab (anti-HBs) 21 mIU/mL No Reference Range Provided - December 03, 2024 Hep B Surface Ag (HBsAg) Negative No Reference Range Provided - December 03, 2024 HCV Ab (anti-HCV) Nonreactive No Reference R ras Provided - December 03, 2024 DIALYSIS PRESCRIPTION Conventional Hemodialysis Data Element Value Order Date/Time July 17, 2025 Frequency 3X Week Treatment Days MonWedFri Dialyzer [id number] Optiflux Treatment Time (Total Minutes) 210 min Blood Flow Rate (mL/min) 450 mL/min Dialysate Flow Rate Manual 800 Estimated Dry Weight 52.6 kg Dialysate Concentrate 2.0 K, 2.5 Ca, 1.0 Mg, 100 Dextrose (G2251) Sodium (mEq/L) 138 mEq/L Bicarb Machine Setting (mEq/L) 32 mEq/L IMMUNIZATIONS Vaccine Date Dose Route Status Flu Vaccine - Flucelvax Trivalent June 29, 2025 0.5 m L Intramuscular Completed Flu Vaccine - Flucelvax Trivalent July 16, 2024 0.5 mL Intramuscular Completed HEPLISAV-B, Series 4 of June 16, 2024 20.0 mcg In tramuscular Completed HEPLISAV-B, Series 3 of 4 April 21, 2024 20.0 mcg Intramu scular Completed HEPLISAV-B, Series 2 of March 17, 2024 20.0 mcg Intramu scular Completed HEPLISAV-B February 11, 2024 20.0 mcg Intramuscular Completed TRANSPLANT WAITLIST STATUS No Information on Transplant Waitlist Status ADVANCE DIRECTIVES Directive Description Ordered By Effective Date Resuscitation status Full Code Ora Aceves January DIALYSIS TREATMENTS Conventional Hemodialysis Date Pre-Treatment Vitals Post-Treatment Aracely ls Duration (hr) BFR (mL/min) Dialysate Dialyzer Dialysis Access Meds Admin Octob 2024 Weight 54.50 kg Weight 52.50 kg 03:32:00 460 2.0 K, 2.5 Ca, 1.0 Mg, 100 Dextrose (G2251) 180nre Optifl ux Blood Pressure-sitting 172/85 mmHg Blood Pressure-sit ting 175/90 mmHg Heart Rate 82 beats per minute Heart Rate 89 beats per minute Respiratory Rate 16 breaths per minute Respiratory Rate 16 breaths per minute Temperature 97.1 deg. F Temperature 97.8 deg. F July 15, 2025 Weight 53.70 kg Weight 52.00 kg 03:34:00 450 2.0 K, 2.5 Ca, 1.0 Mg, 100 Dextrose (G2251) 180nre Optiflux Hemodialysis-CV Catheter-Tunneled, Chest, Right Jugular Access Placed on January 31, 2024 Heparin Sodium (Porcine) 1,000 Units/mL Catheter Lock Arterial; 2200units,Arterial Red Port Heparin Sodium (Porcine) 1,000 Units/mL Catheter Lock Venous; 2300units,Venous Blue Port Heparin Sodium (Porcine) 1,000 Units/mL Systemic; 5000units,Intravenous - push Vitamin D (Calcitriol) Oral; 0.25mcg,Oral Blood Pressure-sitting 159/84 mmHg Blood Pressure-sit ting 177/91 mmHg Heart Rate 76 beats per minute Heart Rate 86 beats per minute Respiratory Rate 18 breaths per minute Respiratory Rate 18 breaths per minute Temperature 97.4 deg. F Temperature 97.5 deg. F July 17, 2025 Weight 53.50 kg Weight 52.90 kg 03:31:00 460 2.0 K, 2.5 Ca, 1.0 Mg, 100 Dextrose (G2251) 180nre Optiflux Hemodialysis-CV Catheter-Tunneled, Chest, Right Jugular Access Placed on January 31, 2024 Heparin Sodium (Porcine) 1,000 Units/mL Catheter Lock Arterial; 2200units,Arterial Red Port Heparin Sodium (Porcine) 1,000 Units/mL Catheter Lock Venous; 2300units,Venous Blue Port Heparin Sodium (Porcine) 1,000 Units/mL Systemic; 5000units,Intravenous - push Vitamin D (Calcitriol) Oral; 0.25mcg,Oral Blood Pressure-sitting 126/98 mmHg Blood Pressure-sit ting 189/81 mmHg Heart Rate 103 beats per minute Heart Rate 97 beat s per minute Respiratory Rate 19 breaths per minute Respiratory Rate 19 breaths per minute Temperature 97.3 deg. F Temperature 97.3 deg. F
[2025-08-01 12:23] VITALS: BP 111/61; PULSE 75; O2SAT 100
--- NOTE | 2025-08-01 12:55 | XRR_ITS ---
PROCEDURE INFORMATION: Exam: XR Left Hip Exam date and time: 08/01/2025 1:32 PM Age: 55 years old Clinical indication: Injury or trauma; Fall; Blunt trauma (contusions or hematomas); Left; Hip TECHNIQUE: Imaging protocol: Radiologic exam of the left hip. Views: 2 or 3 views hip with pelvis when performed. COMPARISON: CT abdomen pelvis wo con [id number] 01/23/2025 6:17 PM FINDINGS: Bones/joints: Unremarkable. No acute fracture. Soft tissues: Unremarkable. XR/XR hip LT 2-3V wo/w pel* [id number] IMPRESSION: No acute findings.
[2025-08-01 12:57] LABS: Hematocrit 28.5 % (37-53); Hemoglobin 8.90 g/dL (11.27-16.99); Mean Corpuscular HGB Conc 31.2 g/dL (30-55); Mean Corpuscular Hemoglobin 29.0 pg (27-33); Mean Corpuscular Volume 92.8 fl (82-101); Nucleated Red Blood Cells % 0 %; Platelet Count 169 10^3/cmm (157-399); Red Blood Count 3.07 10^6/uL (3.85-5.65); White Blood Count 4.83 10^3/uL (3.29-11.43)
[2025-08-01 13:00] VITALS: BP 137/68; PULSE 79; O2SAT 100
[2025-08-01 13:17] LABS: Alanine Aminotransferase 12 U/L (0-41); Albumin Level 4.2 g/dL (3.5-5.2); Alkaline Phosphatase 94 U/L (40-130); Anion Gap 13.7 (5-19); Aspartate Amino Transferase 29 U/L (0-40); Blood Urea Nitrogen 28 mg/dL (6-20); Calcium 9.4 mg/dL (8.5-10.5); Carbon Dioxide 29 mmol/L (22-29); Chloride 100 mmol/L (98-107); Creatinine Clr Calc Pharmacy 26.2388; Globulin 2.3 g/dL (1.3-4.6); Glucose 143 mg/dL (65-115); Osmolality Calculated 294 mOsm/kg (285-295); Potassium 4.7 mmol/L (3.5-5.1); Sodium 138 mmol/L (136-145); Total Protein 6.5 g/dL (6.6-8.7)
--- NOTE | 2025-08-01 13:32 | PC.PHAR ---
Addendum entered by Yaritza Dunn 08/01/25 16:14: Bettina Melton Original Note: No answer at [facility]. Pt states he was given his morning medications today 08/01/25
[2025-08-01 14:00] VITALS: BP 126/63; PULSE 77; O2SAT 100
[2025-08-01 14:30] VITALS: BP 129/68; PULSE 81; O2SAT 100
--- NOTE | 2025-08-01 14:37 | CTR_ITS ---
PROCEDURE INFORMATION: Exam: CT Pelvis Without Contrast, Skeleton Exam date and time: 08/01/2025 2:53 PM Age: 55 years old Clinical indication: Injury or trauma; Fall; Blunt trauma (contusions or hematomas); Left; Hip; Additional info: R hip pain/questioning R inferior pubic rami FX TECHNIQUE: Imaging protocol: Computed tomography of the pelvis without contrast. Exam focused on the skeleton. Radiation optimization: All CT scans at this facility use at least one of these dose optimization techniques: automated exposure control; mA and/or kV adjustment per patient size (includes targeted exams where dose is matched to clinical indication); or iterative reconstruction. COMPARISON: 1. CT abdomen pelvis wo con [id number] 01/23/2025 6:17 PM 2. CR XR hip LT 2-3V wo/w pel* [id number] 08/01/2025 1:32 PM 3. CR (LOW EXM, ) 08/01/2025 1:32 PM RADIATION DOSE METRICS: Total DLP (mGy-cm): 494.69 FINDINGS: Urinary bladder: Decompressed bladder is grossly unremarkable. Bones/joints: Diffuse osseous demineralization pattern. No focal lytic aggressive bone lesion. Negative for acute pelvic fractures. Unremarkable osseous alignment. Unremarkable joint alignment. Ramos catheter within bladder. Old L2 and L3 vertebral fractures with vertebral augmentation changes noted. Soft tissues: Unremarkable. CT/CT pelvis wo con [id number] IMPRESSION: Negative for acute fracture.
[2025-08-01 17:30] VITALS: BP 150/77; PULSE 75; O2SAT 97
--- NOTE | 2025-08-01 17:30 | PC.NURSE ---
attempted to call jassi @ [phone], [phone]
== END 2025-08-01 17:35 | disposition home or self-care (01) ==
PROVIDERS: Emergency Provider Family Medicine; PCP Family Medicine
DX: Z99.3 Dependence on wheelchair (principal); Z79.4 Long term (current) use of insulin; Z79.82 Long term (current) use of aspirin; F17.210 Nicotine dependence, cigarettes, uncomplicated; M25.552 Pain in left hip; M79.605 Pain in left leg; E11.22 Type 2 diabetes mellitus with diabetic chronic kidney disease; I12.0 Hypertensive chronic kidney disease with stage 5 chronic kidney disease or end stage renal disease; N18.6 End stage renal disease; Z99.2 Dependence on renal dialysis; E78.2 Mixed hyperlipidemia
CPT/HCPCS: 36415; 70450; 71045; 72125; 72192; 73502; 73552; 80053; 85025; 99284

== ENCOUNTER 2025-08-14 14:31 | Emergency (ER) | payer MEDICAID, SELFPAY ==
[2025-08-14 14:38] VITALS: BP 135/65; PULSE 98; RESP 16; TEMP 36.4; O2SAT 100; BMI 17.4
--- NOTE | 2025-08-14 14:45 | XR_ITS ---
WS: [id number] Exam: XR chest 1V portable [id number] Date/Time of Exam: 08/14/2025 2:47 PM Reason For Exam: ams Comparison 08/01/2025. The lungs are fully inflated and clear. Mild plaque atelectasis in the lower lung zones. Mild cardiac enlargement unchanged. Right-sided double-lumen dialysis catheter extends into the RIGHT atrium. Bony structures are intact. No pleural effusion. Signs of kyphoplasty involving the upper L-spine. XR/XR chest 1V portable [id number] IMPRESSION: 1. No acute cardiopulmonary findings. Chronic cardiac enlargement.
--- NOTE | 2025-08-14 15:04 | ECG_ITS ---
[employer] [employer] Test Date: 2025-08-14 Pat Name: Tyrese Leach Department: Room: Gender: Male Input Output Clerk: : 1970 Requested By: Connor Carias Order Number: [id number] Debora MD: Izaiah Reyna M.D. Measurements Intervals [place] Rate: 96 P: 57 WY: 174 QRS: -65 QRSD: 151 T: 18 QT: 380 QTc: 482 Interpretive Statements SINUS RHYTHM WITH OCCASIONAL SUPRAVENTRICULAR PREMATURE COMPLEXES RIGHT BUNDLE BRANCH BLOCK [120+ ms QRS DURATION, UPRIGHT V1, 40+ ms S IN I/aVL/V4/V5/V6] LEFT ANTERIOR FASCICULAR BLOCK [QRS AXIS <= -45, QR IN I, RS IN II] POSSIBLE SEPTAL MYOCARDIAL INFARCTION , PROBABLY OLD [30 ms Q WAVE IN V1/V2] Compared to ECG 07/19/2025 19:15:41 Left anterior fascicular block now present Myocardial infarct finding now present Left-axis deviation no longer present Electronically Signed On 08-14-2025 19:43:30 NET SOFTWARE ARCHITECT by Izaiah Reyna M.[email or web address]
--- NOTE | 2025-08-14 15:26 | W.ED.AMS ---
Documented by User: JORY Rivas 08/14/25 18:46 HPI - Altered Mental Status General: Chief Complaint: Altered Mental Status Stated Complaint: ams Time Seen by Provider: 08/14/25 14:38 Source: patient Mode of arrival: ambulatory Limitations: no limitations History of Present Illness: Patient is a 55-year-old male with past medical history of end-stage renal disease on dialysis Sunday, diabetes, and intellectual disability presenting to the emergency department by ambulance from long-term due to reports of altered mental status. He reportedly had dialysis today, he got back to [facility] and they had stated that he was not himself. They state that they were unable to get a blood pressure, and with him being more tired than normal they sent with the emergency department for evaluation. However reportedly they did the blood pressure on the side of a fistula, here in the emergency department blood pressure is 135/65. He has been afebrile, they just note that he has been seemingly more tired, but no focal neurological deficit or weakness. Per EMS, patient is at his normal baseline. Rest of his vitals are stable at this time. He cannot provide any review of systems secondary to his medical history. MD complaint: weakness Context: other (after dialysis) Related Data Home Medications ?Medication ?Instructions ?Recorded ?Confirmed amlodipine 10 mg tablet 10 mg PO DAILY@03/30/23 08/01/25 multivitamin with folic acid 400 1 tab PO DAILY@03/30/23 08/01/25 mcg tablet (Daily-Sean (with folic acid)) acetaminophen 325 mg tablet 650 mg PO QID PRN Pain 09/04/24 08/01/25 (Tylenol) trazodone 100 mg tablet 300 mg PO QPM 04/28/25 08/01/25 dextrose 40 % oral gel (Glucose 15 g PO Q15M PRN low bs 05/28/25 08/01/25 Gel) lidocaine 5 % topical patch 1 patch topical DAILY 05/28/25 08/01/25 lurasidone 120 mg tablet 60 mg PO BID 05/28/25 08/01/25 atorvastatin 10 mg tablet 10 mg PO BEDTIME 07/20/25 08/01/25 escitalopram oxalate 10 mg tablet 15 mg PO DAILY 07/20/25 08/01/25 fenofibrate 160 mg tablet 160 mg PO DAILY 07/20/25 08/01/25 nut.tx.gluc.intol,lac-free,soy 1 ea PO PRN PRN REFUSING MEALS 07/20/25 08/01/25 (Glucerna oral liquid) vit A 600 mcg-vit D3 50 mcg-vit E 1 cap PO DAILY 07/20/25 08/01/25 101 mg-vit K1 1,000 mcg capsule (DEKAs Essential) aripiprazole 15 mg tablet 15 mg PO QAM 08/01/25 08/01/25 aspirin 325 mg tablet,delayed 325 mg PO DAILY 08/01/25 08/01/25 release benztropine 1 mg tablet 1 mg PO BID 08/01/25 08/01/25 cetirizine 10 mg tablet 10 mg PO BEDTIME 08/01/25 08/01/25 famotidine 20 mg tablet 20 mg PO BID 08/01/25 08/01/25 Previous Rx's ?Medication ?Instructions ?Recorded ondansetron 4 mg disintegrating 4 mg PO Q6H PRN nausea and 02/11/25 tablet vomiting #10 tabs mupirocin 2 % topical ointment 1 applic topical BID #15 grams 03/26/25 Wheelchair pad #1 ea 04/28/25 gabapentin 300 mg capsule 300 mg PO TID #90 caps 05/23/25 loperamide 2 mg tablet See Rx Instructions .Route 06/09/25 (Anti-Diarrheal (loperamide)) .COMPLEX #30 ea carvedilol 12.5 mg tablet See Rx Instructions .Route 06/16/25 .COMPLEX #60 tabs insulin lispro 100 unit/mL See Rx Instructions SUBCUT TID #15 06/24/25 subcutaneous pen (Humalog KwikPen mL (U-100) Insulin) blood glucose control, normal #1 ea 07/01/25 (True Metrix Level 2 solution) blood sugar diagnostic (Blood #200 ea 07/01/25 Glucose Test strips) clonazepam 0.5 mg tablet 0.5 mg PO .COMPLEX #12 tabs 07/01/25 lancets #200 ea 07/01/25 pen needle, diabetic 31 gauge x #100 ea 07/01/25 5/16 (Pen Needle) starch (thickening) (Thick-It oral See Rx Instructions .Route 07/01/25 powder) .COMPLEX #1,020 grams WHEELCHAIR WITH SEAT BELT AND #1 ea 07/15/25 HARNESS hydrocodone 7.5 mg-acetaminophen 1 tab PO Q6H PRN pain 30 days #120 07/15/25 325 mg tablet tabs naloxone 4 mg/actuation nasal 1 spray intranasal Q3M #2 ea 07/15/25 spray (Narcan) hydralazine 10 mg tablet 10 mg PO Q6H 30 days #120 tabs 07/27/25 isosorbide mononitrate 60 mg See Rx Instructions .Route 07/27/25 tablet,extended release 24 hr .COMPLEX #30 tabs midodrine 5 mg tablet 5 mg PO TID PRN sbp<90 or dbp<60 07/27/25 with dialysis 30 days #60 tabs polyethylene glycol 3350 17 gram 17 g PO DAILY PRN constipation 30 07/27/25 oral powder packet days #30 ea cefdinir 300 mg capsule 300 mg PO BID 10 days #20 caps 08/14/25 Allergies Allergy/AdvReac Type Severity Reaction Status Date / Time baclofen AdvReac Severe angioedema Verified 07/23/25 19:03 lisinopril AdvReac Severe angioedema Verified 07/23/25 19:03 Review of Systems General: Reports: ROS unobtainable due to medical condition PFSH ED PFSH: Medical History Malignant hypertension ESRD (end stage renal disease) Hyperlipemia, mixed Acute renal failure Acute kidney injury superimposed on CKD Acute hyponatremia Hyponatremia Anemia Hypervolemia Tobacco abuse Diabetes Social History Smoking and tobacco/nicotine status: current every day tobacco/nicotine user cigarettes Alcohol intake: former Substance/Drug Use: former Physical Exam Const: COMMON NORMALS: no acute distress and alert EXAM LIMITATIONS: physical limitations ORIENTATION/CONSCIOUSNESS: Yes awake HENMT: COMMON NORMALS: normocephalic and atraumatic HEAD & SCALP: normocephalic and atraumatic Eye: COMMON NORMALS: Equal, round and reactive pupils present (Sluggish) and EOMs intact bilaterally PUPIL: Yes Equal, round and reactive pupils present (Sluggish) Neck/C-Spine: COMMON NORMALS: full ROM Resp: COMMON NORMALS: normal respiratory effort, No retractions, No use of accessory muscles and clear to auscultation bilaterally AUSCULTATION: clear to auscultation bilaterally Cardio: COMMON NORMALS: regular rate and regular rhythm RATE: regular rate RHYTHM: regular rhythm GI: COMMON NORMALS: Soft to palpation and non-tender PALPATION: Yes Soft to palpation Extremity: COMMON NORMALS: normal to inspection and full ROM Neuro: COMMON NORMALS: moves all extremities, no focal motor deficits and no sensory deficits noted SENSORIUM/ORIENTATION: Yes alert Course Vital Signs: Vital signs: Vital Signs Temperature 97.5 F L 08/14/25 14:38 Pulse Rate 80 08/14/25 20:09 Respiratory Rate 16 08/14/25 20:09 Blood Pressure 151/76 08/14/25 20:09 Pulse Oximetry 100 08/14/25 20:09 Oxygen Delivery Me thod Room Air 08/14/25 19:00 MDM - Altered Mental Status Medical Decision Making Patient present by ambulance from long-term for reports of altered mental status following dialysis today. They had noted that his blood pressure was not reading, though they were reportedly taken the blood pressure on the side of his left upper extremity fistula, as here his blood pressure has been normal. 135/65 on arrival, and rest of his vitals have been stable overall. They had stated that he was appearing more weak/tired than normal, however he has been at baseline here. Lab workup is all within normal limits, chest x-ray negative, and EKG does not show any acute STEMI. However urinalysis shows signs of a urinary tract infection which could explain the notable/transient altered mental status. Will treat with cefdinir, he is given IV Rocephin here as well as fluids and has been stable. Will be allowed discharge back to long-term. Lab Data 08/14/25 15:18 08/14/25 15:18 Radiology Impressions Chest X-Ray 08/14/25 14:45 IMPRESSION: 1. No acute cardiopulmonary findings. Chronic cardiac enlargement. Laboratory Results WBC 4.94 10^3/uL (3.29-11.43) 08/14/25 15:18 RBC 2.68 10^6/uL (3.85-5.65) L 08/14/25 15:18 Hgb 7.90 g/dL (11.27-16.99) L 08/14/25 15:18 Hct 25.6 % (37-53) L 08/14/25 15:18 MCV 95.5 fl (82-101) 08/14/25 15:18 MCH 29.5 pg (27-33) 08/14/25 15:18 MCHC 30.9 g/dL (30-55) 08/14/25 15:18 RDW 15.2 % (12.1-15.1) H 08/14/25 15:18 Plt Count 255 10^3/cmm (157-399) 08/14/25 15:18 MPV 9.7 fL (7.4-10.4) 08/14/25 15:18 Neut % (Auto) 67.2 % 08/14/25 15:18 Lymph % (Auto) 21.3 % 08/14/25 15:18 Patrick % (Auto) 8.5 % 08/14/25 15:18 Eos % (Auto) 1.8 % 08/14/25 15:18 Baso % (Auto) 0.4 % 08/14/25 15:18 Neut # (Auto) 3.32 10^3/uL (1.8-7.7) 08/14/25 15:18 Lymph # (Auto) 1.1 10^3/uL (0.8-4.8) 08/14/25 15:18 Patrick # (Auto) 0.4 10^3/uL (0.2-0.9) 08/14/25 15:18 Eos # (Auto) 0.1 10^3/uL (0.0-0.8) 08/14/25 15:18 Baso # (Auto) 0.0 10^3/uL (0.0-0.1) 08/14/25 15:18 Nucleated RBC % (auto) 0 % 08/14/25 15:18 Nucleated RBCs # 0.0 /100WBC 08/14/25 15:18 Sodium 137 mmol/L (136-145) 08/14/25 15:18 Potassium 3.5 mmol/L (3.5-5.1) 08/14/25 15:18 Chloride 101 mmol/L (98-107) 08/14/25 15:18 Carbon Dioxide 25 mmol/L (22-29) 08/14/25 15:18 Anion Gap 14.5 (5-19) 08/14/25 15:18 BUN 14 mg/dL (6-20) 08/14/25 15:18 Creatinine 1.5 mg/dL (0.7-1.2) H 08/14/25 15:18 GFR Calculation 58.6 mL/min (90-130) L 08/14/25 15:18 Glucose 316 mg/dL (65-115) H 08/14/25 15:18 Calculated Osmolality 297 mOsm/kg (285-295) H 08/14/25 15:18 Lactic Acid 2.1 mmol/L (0.5-2.2) 08/14/25 15:18 Lactic Acid (Sepsis) 1.3 mmol/L (0.5-2.2) 08/14/25 17:41 Calcium 9.3 mg/dL (8.5-10.5) 08/14/25 15:18 Phosphorus 1.5 mg/dL (2.5-4.5) L 08/14/25 15:18 Magnesium 1.7 mg/dL (1.7-2.3) 08/14/25 15:18 Total Bilirubin 0.3 mg/dL (0.15-1.2) 08/14/25 15:18 AST 21 U/L (0-40) 08/14/25 15:18 ALT 10 U/L (0-41) 08/14/25 15:18 Alkaline Phosphatase 137 U/L (40-130) H 08/14/25 15:18 C-Reactive Protein 44.0 mg/L (0.0-4.9) H 08/14/25 15:18 Total Protein 6.1 g/dL (6.6-8.7) L 08/14/25 15:18 Albumin 3.5 g/dL (3.5-5.2) 08/14/25 15:18 Globulin 2.6 g/dL (1.3-4.6) 08/14/25 15:18 Urine Color Yellow (Yellow) 08/14/25 17:15 Urine Appearance Turbid (CLEAR) A 08/14/25 17:15 Urine pH 7.5 (5-7) 08/14/25 17:15 Ur Specific [place] 1.012 (1.005-1.030) 08/14/25 17:15 Urine Protein 3+ (Negative) A 08/14/25 17:15 Urine Glucose (UA) Negative (Normal) 08/14/25 17:15 Urine Ketones Negative (Negative) 08/14/25 17:15 Urine Blood 1+ (Negative) A 08/14/25 17:15 Urine Nitrate Negative (Negative) 08/14/25 17:15 Urine Bilirubin Negative (Negative) 08/14/25 17:15 Urine Urobilinogen 1.0 mg/dL (Negative) 08/14/25 17:15 Ur Leukocyte Esterase 3+ (Negative) A 08/14/25 17:15 Urine RBC >100 /hpf (0-2) H 08/14/25 17:15 Urine WBC >100 /hpf (0-5) H 08/14/25 17:15 Ur Squamous Epith Cells 0-5 /hpf (0-5) 08/14/25 17:15 Amorphous Sediment Not Reportable 08/14/25 17:15 Urine Bacteria 4+ /hpf (NONE) H 08/14/25 17:15 Hyaline Casts 2.87 /lpf 08/14/25 17:15 Urine Opiates Screen Positive ng/mL (Negative) H 08/14/25 17:15 Ur Barbiturates Screen Negative ng/mL (Negative) 08/14/25 17:15 Ur Phencyclidine Scrn Negative ng/mL (Negative) 08/14/25 17:15 Ur Amphetamines Screen Negative ng/mL (Negative) 08/14/25 17:15 U Benzodiazepines Scrn Negative ng/mL (Negative) 08/14/25 17:15 Urine Cocaine Screen Negative ng/mL (Negative) 08/14/25 17:15 U Marijuana (THC) Screen Negative ng/mL (Negative) 08/14/25 17:15 All radiology interpretation(s) finalized by discharge Discharge Plan Discharge Patient Disposition: Home Clinical Impression: Urinary tract infection Qualifiers: Urinary tract infection type: acute cystitis Hematuria presence: with hematuria Qualified Code(s): N30.01 - Acute cystitis with hematuria Condition: Stable Prescriptions: New cefdinir 300 mg capsule 300 mg PO BID 10 Days Qty: 20 0RF No Action dextrose [Glucose Gel] 40 % gel 15 g PO Q15M PRN (Reason: low bs) Rx Instructions: until symptoms of low blood sugar are controlled lidocaine 5 % adhesive patch,medicated 1 patch topical DAILY Rx Instructions: leave on most painful area for up to 12 hrs mupirocin 2 % ointment 1 applic topical BID Qty: 15 0RF (DME) Wheelchair pad See Rx Instructions .Route .MEDSUPPLY Qty: 1 0RF Rx Instructions: As directed trazodone 100 mg tablet 300 mg PO QPM gabapentin 300 mg capsule 300 mg PO TID Qty: 90 5RF loperamide [Anti-Diarrheal (loperamide)] 2 mg tablet See Rx Instructions .ROUTE .COMPLEX Qty: 30 0RF Dose Instruction: TAKE 2 TABLETS BY MOUTH WITH ONSET OF FOR DIARRHEA NEEDED; MAY REPEAT WITH EACH LOOSE STOOL; NO MORE THAN 8 TABLETS PER DAY Rx Instructions: TAKE 2 TABLETS BY MOUTH WITH ONSET OF FOR DIARRHEA NEEDED; MAY REPEAT WITH EACH LOOSE STOOL; NO MORE THAN 8 TABLETS PER DAY carvedilol 12.5 mg tablet See Rx Instructions .ROUTE .COMPLEX Qty: 60 3RF Dose Instruction: TAKE 1 TABLET BY MOUTH TWICE DAILY; take with a meal OR food. do not take if systolic blood pressure is below 90 OR diastolic blood pressure is below 60 Rx Instructions: TAKE 1 TABLET BY MOUTH TWICE DAILY; take with a meal OR food. do not take if systolic blood pressure is below 90 OR diastolic blood pressure is below 60 insulin lispro [Humalog KwikPen Insulin] 100 unit/mL insulin pen See Rx Instructions SUBCUT TID Qty: 15 5RF Rx Instructions: subcutaneously three times daily; after meals, based on low-dose sliding scale. Max daily is 60 units. clonazepam 0.5 mg tablet 0.5 mg PO .COMPLEX Qty: 12 5RF Rx Instructions: Take 1 tablet by mouth 3 times a week before dialysis for anxiety. (DME) blood glucose control, normal [True Metrix Level 2] Solution See Rx Instructions .Route Qty: 1 11RF Rx Instructions: Check sugars 3x daily. (DME) Blood Glucose Test Strip See Rx Instructions .MEDSUPPLY Qty: 200 12RF Rx Instructions: Use as directed with glucometer to check blood sugar Check sugars 3x daily. (DME) lancets Misc See Rx Instructions .MEDSUPPLY Qty: 200 12RF Rx Instructions: Use as directed to Check sugars 3x daily. (DME) pen needle, diabetic [Pen Needle] 31 gauge x 5/16 needle See Rx Instructions .MEDSUPPLY Qty: 100 12RF Rx Instructions: Use as directed for insulin administration 3x daily. Thick-It Powder See Rx Instructions .ROUTE .COMPLEX Qty: 1020 3RF Dose Instruction: USE DIRECTED TO MAKE LIQUID EXTREMLY THICKENED Rx Instructions: USE DIRECTED TO MAKE LIQUID EXTREMLY THICKENED hydrocodone-acetaminophen 7.5-325 mg tablet 1 tab PO Q6H PRN (Reason: pain) 30 Days Qty: 120 0RF naloxone [Narcan] 4 mg/actuation spray,non-aerosol 1 spray intranasal Q3M Qty: 2 2RF Rx Instructions: spray 1 dose into ONE nostril; alternate nostrils w each dose until help arrives (DME) WHEELCHAIR WITH SEAT BELT AND HARNESS See Rx Instructions .Route .MEDSUPPLY Qty: 1 0RF Rx Instructions: Wheelchair bound, cognitively impaired, multiple previous falls from wheelchair. amlodipine 10 mg Tablet 10 mg PO DAILY@09 multivitamin with folic acid [Daily-Sean (with folic acid)] 400 mcg tablet 1 tab PO DAILY@09 lurasidone 120 mg tablet 60 mg PO BID atorvastatin 10 mg tablet 10 mg PO BEDTIME escitalopram oxalate 10 mg Tablet 15 mg PO DAILY fenofibrate 160 mg tablet 160 mg PO DAILY DEKAs Essential 600 mcg-50 mcg- 101 mg-1,000mcg Capsule 1 cap PO DAILY Glucerna Liquid 1 ea PO PRN PRN (Reason: REFUSING MEALS ) hydralazine 10 mg Tablet 10 mg PO Q6H 30 Days Qty: 120 0RF polyethylene glycol 3350 17 gram Powder In Packet 17 g PO DAILY PRN (Reason: constipation) 30 Days Qty: 30 0RF isosorbide mononitrate 60 mg tablet extended release 24 hr See Rx Instructions .ROUTE .COMPLEX Qty: 30 0RF Dose Instruction: TAKE 1 TABLET BY MOUTH EVERY DAY FOR BLOOD FLOW; check BP PRIOR TO ADMIN, HOLD IF LESS TAHN 90/60, HOLD FOR DIALYSIS Rx Instructions: TAKE 0.5 TABLET BY MOUTH EVERY DAY FOR BLOOD FLOW; check BP PRIOR TO ADMIN, HOLD IF LESS TAHN 90/60, HOLD FOR DIALYSIS midodrine 5 mg tablet 5 mg PO TID PRN (Reason: sbp<90 or dbp<60 with dialysis) 30 Days Qty: 60 0RF Rx Instructions: only give on dialysis days, to be used for hypotension associated with dialysis acetaminophen [Tylenol] 325 mg Tablet 650 mg PO QID PRN (Reason: Pain) ondansetron 4 mg tablet,disintegrating 4 mg PO Q6H PRN (Reason: nausea and vomiting) Qty: 10 0RF cetirizine 10 mg tablet 10 mg PO BEDTIME famotidine 20 mg tablet 20 mg PO BID aspirin 325 mg tablet,delayed release (DR/EC) 325 mg PO DAILY benztropine 1 mg tablet 1 mg PO BID aripiprazole 15 mg tablet 15 mg PO QAM Discharge Orders: Discharge ED (Routine); Ordered 08/14/25 Ordered By: Connor Mayfield Referrals: Valente Harding DO [Primary Care Provider, Family Practice] Patient Instructions: Patient Portal & Kaye Instructions Activity Restrictions/Additional Instructions: Take cefdinir as prescribed. Continue taking other medications. Please return with persistent fever, vomiting, or overall worsening ill appearance. Print Language: Palauan Coding Level of Care Code ED [employer] C[employer] for Chg Fwd Documented by User: Hamilton John DO 08/15/25 14:33 HPI - Altered Mental Status General: Chief Complaint: Altered Mental Status Stated Complaint: ams Time Seen by Provider: 08/14/25 14:38 Related Data Home Medications ?Medication ?Instructions ?Recorded ?Confirmed amlodipine 10 mg tablet 10 mg PO DAILY@03/30/23 08/01/25 multivitamin with folic acid 400 1 tab PO DAILY@03/30/23 08/01/25 mcg tablet (Daily-Sean (with folic acid)) acetaminophen 325 mg tablet 650 mg PO QID PRN Pain 09/04/24 08/01/25 (Tylenol) trazodone 100 mg tablet 300 mg PO QPM 04/28/25 08/01/25 dextrose 40 % oral gel (Glucose 15 g PO Q15M PRN low bs 05/28/25 08/01/25 Gel) lidocaine 5 % topical patch 1 patch topical DAILY 05/28/25 08/01/25 lurasidone 120 mg tablet 60 mg PO BID 05/28/25 08/01/25 atorvastatin 10 mg tablet 10 mg PO BEDTIME 07/20/25 08/01/25 escitalopram oxalate 10 mg tablet 15 mg PO DAILY 07/20/25 08/01/25 fenofibrate 160 mg tablet 160 mg PO DAILY 07/20/25 08/01/25 nut.tx.gluc.intol,lac-free,soy 1 ea PO PRN PRN REFUSING MEALS 07/20/25 08/01/25 (Glucerna oral liquid) vit A 600 mcg-vit D3 50 mcg-vit E 1 cap PO DAILY 07/20/25 08/01/25 101 mg-vit K1 1,000 mcg capsule (DEKAs Essential) aripiprazole 15 mg tablet 15 mg PO QAM 08/01/25 08/01/25 aspirin 325 mg tablet,delayed 325 mg PO DAILY 08/01/25 08/01/25 release benztropine 1 mg tablet 1 mg PO BID 08/01/25 08/01/25 cetirizine 10 mg tablet 10 mg PO BEDTIME 08/01/25 08/01/25 famotidine 20 mg tablet 20 mg PO BID 08/01/25 08/01/25 Previous Rx's ?Medication ?Instructions ?Recorded ondansetron 4 mg disintegrating 4 mg PO Q6H PRN nausea and 02/11/25 tablet vomiting #10 tabs mupirocin 2 % topical ointment 1 applic topical BID #15 grams 03/26/25 Wheelchair pad #1 ea 04/28/25 gabapentin 300 mg capsule 300 mg PO TID #90 caps 05/23/25 loperamide 2 mg tablet See Rx Instructions .Route 06/09/25 (Anti-Diarrheal (loperamide)) .COMPLEX #30 ea carvedilol 12.5 mg tablet See Rx Instructions .Route 06/16/25 .COMPLEX #60 tabs insulin lispro 100 unit/mL See Rx Instructions SUBCUT TID #15 06/24/25 subcutaneous pen (Humalog KwikPen mL (U-100) Insulin) blood glucose control, normal #1 ea 07/01/25 (True Metrix Level 2 solution) blood sugar diagnostic (Blood #200 ea 07/01/25 Glucose Test strips) clonazepam 0.5 mg tablet 0.5 mg PO .COMPLEX #12 tabs 07/01/25 lancets #200 ea 07/01/25 pen needle, diabetic 31 gauge x #100 ea 07/01/25 5/16 (Pen Needle) starch (thickening) (Thick-It oral See Rx Instructions .Route 07/01/25 powder) .COMPLEX #1,020 grams WHEELCHAIR WITH SEAT BELT AND #1 ea 07/15/25 HARNESS hydrocodone 7.5 mg-acetaminophen 1 tab PO Q6H PRN pain 30 days #120 07/15/25 325 mg tablet tabs naloxone 4 mg/actuation nasal 1 spray intranasal Q3M #2 ea 07/15/25 spray (Narcan) hydralazine 10 mg tablet 10 mg PO Q6H 30 days #120 tabs 07/27/25 isosorbide mononitrate 60 mg See Rx Instructions .Route 07/27/25 tablet,extended release 24 hr .COMPLEX #30 tabs midodrine 5 mg tablet 5 mg PO TID PRN sbp<90 or dbp<60 07/27/25 with dialysis 30 days #60 tabs polyethylene glycol 3350 17 gram 17 g PO DAILY PRN constipation 30 07/27/25 oral powder packet days #30 ea cefdinir 300 mg capsule 300 mg PO BID 10 days #20 caps 08/14/25 Allergies Allergy/AdvReac Type Severity Reaction Status Date / Time baclofen AdvReac Severe angioedema Verified 07/23/25 19:03 lisinopril AdvReac Severe angioedema Verified 07/23/25 19:03 [facility] PFSH: Medical History Malignant hypertension ESRD (end stage renal disease) Hyperlipemia, mixed Acute renal failure Acute kidney injury superimposed on CKD Acute hyponatremia Hyponatremia Anemia Hypervolemia Tobacco abuse Diabetes Social History Smoking and tobacco/nicotine status: current every day tobacco/nicotine user cigarettes Alcohol intake: former Substance/Drug Use: former Course Vital Signs: Vital signs: Vital Signs Temperature 97.5 F L 08/14/25 14:38 Pulse Rate 80 08/14/25 20:09 Respiratory Rate 16 08/14/25 20:09 Blood Pressure 151/76 08/14/25 20:09 Pulse Oximetry 100 08/14/25 20:09 Oxygen Delivery Me thod Room Air 08/14/25 19:00 MDM - Altered Mental Status Medical Decision Making Patient present by ambulance from long-term for reports of altered mental status following dialysis today. They had noted that his blood pressure was not reading, though they were reportedly taken the blood pressure on the side of his left upper extremity fistula, as here his blood pressure has been normal. 135/65 on arrival, and rest of his vitals have been stable overall. They had stated that he was appearing more weak/tired than normal, however he has been at baseline here. Lab workup is all within normal limits, chest x-ray negative, and EKG does not show any acute STEMI. However urinalysis shows signs of a urinary tract infection which could explain the notable/transient altered mental status. Will treat with cefdinir, he is given IV Rocephin here as well as fluids and has been stable. Will be allowed discharge back to long-term. Chart reviewed Lab Data 08/14/25 15:18 08/14/25 15:18 Radiology Impressions Chest X-Ray 08/14/25 14:45 IMPRESSION: 1. No acute cardiopulmonary findings. Chronic cardiac enlargement. Laboratory Results WBC 4.94 10^3/uL (3.29-11.43) 08/14/25 15:18 RBC 2.68 10^6/uL (3.85-5.65) L 08/14/25 15:18 Hgb 7.90 g/dL (11.27-16.99) L 08/14/25 15:18 Hct 25.6 % (37-53) L 08/14/25 15:18 MCV 95.5 fl (82-101) 08/14/25 15:18 MCH 29.5 pg (27-33) 08/14/25 15:18 MCHC 30.9 g/dL (30-55) 08/14/25 15:18 RDW 15.2 % (12.1-15.1) H 08/14/25 15:18 Plt Count 255 10^3/cmm (157-399) 08/14/25 15:18 MPV 9.7 fL (7.4-10.4) 08/14/25 15:18 Neut % (Auto) 67.2 % 08/14/25 15:18 Lymph % (Auto) 21.3 % 08/14/25 15:18 Patrick % (Auto) 8.5 % 08/14/25 15:18 Eos % (Auto) 1.8 % 08/14/25 15:18 Baso % (Auto) 0.4 % 08/14/25 15:18 Neut # (Auto) 3.32 10^3/uL (1.8-7.7) 08/14/25 15:18 Lymph # (Auto) 1.1 10^3/uL (0.8-4.8) 08/14/25 15:18 Patrick # (Auto) 0.4 10^3/uL (0.2-0.9) 08/14/25 15:18 Eos # (Auto) 0.1 10^3/uL (0.0-0.8) 08/14/25 15:18 Baso # (Auto) 0.0 10^3/uL (0.0-0.1) 08/14/25 15:18 Nucleated RBC % (auto) 0 % 08/14/25 15:18 Nucleated RBCs # 0.0 /100WBC 08/14/25 15:18 Sodium 137 mmol/L (136-145) 08/14/25 15:18 Potassium 3.5 mmol/L (3.5-5.1) 08/14/25 15:18 Chloride 101 mmol/L (98-107) 08/14/25 15:18 Carbon Dioxide 25 mmol/L (22-29) 08/14/25 15:18 Anion Gap 14.5 (5-19) 08/14/25 15:18 BUN 14 mg/dL (6-20) 08/14/25 15:18 Creatinine 1.5 mg/dL (0.7-1.2) H 08/14/25 15:18 GFR Calculation 58.6 mL/min (90-130) L 08/14/25 15:18 Glucose 316 mg/dL (65-115) H 08/14/25 15:18 Calculated Osmolality 297 mOsm/kg (285-295) H 08/14/25 15:18 Lactic Acid 2.1 mmol/L (0.5-2.2) 08/14/25 15:18 Lactic Acid (Sepsis) 1.3 mmol/L (0.5-2.2) 08/14/25 17:41 Calcium 9.3 mg/dL (8.5-10.5) 08/14/25 15:18 Phosphorus 1.5 mg/dL (2.5-4.5) L 08/14/25 15:18 Magnesium 1.7 mg/dL (1.7-2.3) 08/14/25 15:18 Total Bilirubin 0.3 mg/dL (0.15-1.2) 08/14/25 15:18 AST 21 U/L (0-40) 08/14/25 15:18 ALT 10 U/L (0-41) 08/14/25 15:18 Alkaline Phosphatase 137 U/L (40-130) H 08/14/25 15:18 C-Reactive Protein 44.0 mg/L (0.0-4.9) H 08/14/25 15:18 Total Protein 6.1 g/dL (6.6-8.7) L 08/14/25 15:18 Albumin 3.5 g/dL (3.5-5.2) 08/14/25 15:18 Globulin 2.6 g/dL (1.3-4.6) 08/14/25 15:18 Urine Color Yellow (Yellow) 08/14/25 17:15 Urine Appearance Turbid (CLEAR) A 08/14/25 17:15 Urine pH 7.5 (5-7) 08/14/25 17:15 Ur Specific [place] 1.012 (1.005-1.030) 08/14/25 17:15 Urine Protein 3+ (Negative) A 08/14/25 17:15 Urine Glucose (UA) Negative (Normal) 08/14/25 17:15 Urine Ketones Negative (Negative) 08/14/25 17:15 Urine Blood 1+ (Negative) A 08/14/25 17:15 Urine Nitrate Negative (Negative) 08/14/25 17:15 Urine Bilirubin Negative (Negative) 08/14/25 17:15 Urine Urobilinogen 1.0 mg/dL (Negative) 08/14/25 17:15 Ur Leukocyte Esterase 3+ (Negative) A 08/14/25 17:15 Urine RBC >100 /hpf (0-2) H 08/14/25 17:15 Urine WBC >100 /hpf (0-5) H 08/14/25 17:15 Ur Squamous Epith Cells 0-5 /hpf (0-5) 08/14/25 17:15 Amorphous Sediment Not Reportable 08/14/25 17:15 Urine Bacteria 4+ /hpf (NONE) H 08/14/25 17:15 Hyaline Casts 2.87 /lpf 08/14/25 17:15 Urine Opiates Screen Positive ng/mL (Negative) H 08/14/25 17:15 Ur Barbiturates Screen Negative ng/mL (Negative) 08/14/25 17:15 Ur Phencyclidine Scrn Negative ng/mL (Negative) 08/14/25 17:15 Ur Amphetamines Screen Negative ng/mL (Negative) 08/14/25 17:15 U Benzodiazepines Scrn Negative ng/mL (Negative) 08/14/25 17:15 Urine Cocaine Screen Negative ng/mL (Negative) 08/14/25 17:15 U Marijuana (THC) Screen Negative ng/mL (Negative) 08/14/25 17:15 Discharge Plan Discharge Patient Disposition: Home Clinical Impression: Urinary tract infection Qualifiers: Urinary tract infection type: acute cystitis Hematuria presence: with hematuria Qualified Code(s): N30.01 - Acute cystitis with hematuria Condition: Stable Prescriptions: New cefdinir 300 mg capsule 300 mg PO BID 10 Days Qty: 20 0RF No Action dextrose [Glucose Gel] 40 % gel 15 g PO Q15M PRN (Reason: low bs) Rx Instructions: until symptoms of low blood sugar are controlled lidocaine 5 % adhesive patch,medicated 1 patch topical DAILY Rx Instructions: leave on most painful area for up to 12 hrs mupirocin 2 % ointment 1 applic topical BID Qty: 15 0RF (DME) Wheelchair pad See Rx Instructions .Route .MEDSUPPLY Qty: 1 0RF Rx Instructions: As directed trazodone 100 mg tablet 300 mg PO QPM gabapentin 300 mg capsule 300 mg PO TID Qty: 90 5RF loperamide [Anti-Diarrheal (loperamide)] 2 mg tablet See Rx Instructions .ROUTE .COMPLEX Qty: 30 0RF Dose Instruction: TAKE 2 TABLETS BY MOUTH WITH ONSET OF FOR DIARRHEA NEEDED; MAY REPEAT WITH EACH LOOSE STOOL; NO MORE THAN 8 TABLETS PER DAY Rx Instructions: TAKE 2 TABLETS BY MOUTH WITH ONSET OF FOR DIARRHEA NEEDED; MAY REPEAT WITH EACH LOOSE STOOL; NO MORE THAN 8 TABLETS PER DAY carvedilol 12.5 mg tablet See Rx Instructions .ROUTE .COMPLEX Qty: 60 3RF Dose Instruction: TAKE 1 TABLET BY MOUTH TWICE DAILY; take with a meal OR food. do not take if systolic blood pressure is below 90 OR diastolic blood pressure is below 60 Rx Instructions: TAKE 1 TABLET BY MOUTH TWICE DAILY; take with a meal OR food. do not take if systolic blood pressure is below 90 OR diastolic blood pressure is below 60 insulin lispro [Humalog KwikPen Insulin] 100 unit/mL insulin pen See Rx Instructions SUBCUT TID Qty: 15 5RF Rx Instructions: subcutaneously three times daily; after meals, based on low-dose sliding scale. Max daily is 60 units. clonazepam 0.5 mg tablet 0.5 mg PO .COMPLEX Qty: 12 5RF Rx Instructions: Take 1 tablet by mouth 3 times a week before dialysis for anxiety. (DME) blood glucose control, normal [True Metrix Level 2] Solution See Rx Instructions .Route Qty: 1 11RF Rx Instructions: Check sugars 3x daily. (DME) Blood Glucose Test Strip See Rx Instructions .MEDSUPPLY Qty: 200 12RF Rx Instructions: Use as directed with glucometer to check blood sugar Check sugars 3x daily. (DME) lancets Misc See Rx Instructions .MEDSUPPLY Qty: 200 12RF Rx Instructions: Use as directed to Check sugars 3x daily. (DME) pen needle, diabetic [Pen Needle] 31 gauge x 5/16 needle See Rx Instructions .MEDSUPPLY Qty: 100 12RF Rx Instructions: Use as directed for insulin administration 3x daily. Thick-It Powder See Rx Instructions .ROUTE .COMPLEX Qty: 1020 3RF Dose Instruction: USE DIRECTED TO MAKE LIQUID EXTREMLY THICKENED Rx Instructions: USE DIRECTED TO MAKE LIQUID EXTREMLY THICKENED hydrocodone-acetaminophen 7.5-325 mg tablet 1 tab PO Q6H PRN (Reason: pain) 30 Days Qty: 120 0RF naloxone [Narcan] 4 mg/actuation spray,non-aerosol 1 spray intranasal Q3M Qty: 2 2RF Rx Instructions: spray 1 dose into ONE nostril; alternate nostrils w each dose until help arrives (DME) WHEELCHAIR WITH SEAT BELT AND HARNESS See Rx Instructions .Route .MEDSUPPLY Qty: 1 0RF Rx Instructions: Wheelchair bound, cognitively impaired, multiple previous falls from wheelchair. amlodipine 10 mg Tablet 10 mg PO DAILY@09 multivitamin with folic acid [Daily-Sean (with folic acid)] 400 mcg tablet 1 tab PO DAILY@09 lurasidone 120 mg tablet 60 mg PO BID atorvastatin 10 mg tablet 10 mg PO BEDTIME escitalopram oxalate 10 mg Tablet 15 mg PO DAILY fenofibrate 160 mg tablet 160 mg PO DAILY DEKAs Essential 600 mcg-50 mcg- 101 mg-1,000mcg Capsule 1 cap PO DAILY Glucerna Liquid 1 ea PO PRN PRN (Reason: REFUSING MEALS ) hydralazine 10 mg Tablet 10 mg PO Q6H 30 Days Qty: 120 0RF polyethylene glycol 3350 17 gram Powder In Packet 17 g PO DAILY PRN (Reason: constipation) 30 Days Qty: 30 0RF isosorbide mononitrate 60 mg tablet extended release 24 hr See Rx Instructions .ROUTE .COMPLEX Qty: 30 0RF Dose Instruction: TAKE 1 TABLET BY MOUTH EVERY DAY FOR BLOOD FLOW; check BP PRIOR TO ADMIN, HOLD IF LESS TAHN 90/60, HOLD FOR DIALYSIS Rx Instructions: TAKE 0.5 TABLET BY MOUTH EVERY DAY FOR BLOOD FLOW; check BP PRIOR TO ADMIN, HOLD IF LESS TAHN 90/60, HOLD FOR DIALYSIS midodrine 5 mg tablet 5 mg PO TID PRN (Reason: sbp<90 or dbp<60 with dialysis) 30 Days Qty: 60 0RF Rx Instructions: only give on dialysis days, to be used for hypotension associated with dialysis acetaminophen [Tylenol] 325 mg Tablet 650 mg PO QID PRN (Reason: Pain) ondansetron 4 mg tablet,disintegrating 4 mg PO Q6H PRN (Reason: nausea and vomiting) Qty: 10 0RF cetirizine 10 mg tablet 10 mg PO BEDTIME famotidine 20 mg tablet 20 mg PO BID aspirin 325 mg tablet,delayed release (DR/EC) 325 mg PO DAILY benztropine 1 mg tablet 1 mg PO BID aripiprazole 15 mg tablet 15 mg PO QAM Discharge Orders: Discharge ED (Routine); Ordered 08/14/25 Ordered By: Connor Mayfield Referrals: Valente Harding DO [Primary Care Provider, Family Practice] Patient Instructions: Patient Portal & Kaye Instructions Activity Restrictions/Additional Instructions: Take cefdinir as prescribed. Continue taking other medications. Please return with persistent fever, vomiting, or overall worsening ill appearance. 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
[2025-08-14 15:29] LABS: Hematocrit 25.6 % (37-53); Hemoglobin 7.90 g/dL (11.27-16.99); Mean Corpuscular HGB Conc 30.9 g/dL (30-55); Mean Corpuscular Hemoglobin 29.5 pg (27-33); Mean Corpuscular Volume 95.5 fl (82-101); Nucleated Red Blood Cells % 0 %; Platelet Count 255 10^3/cmm (157-399); Red Blood Count 2.68 10^6/uL (3.85-5.65); White Blood Count 4.94 10^3/uL (3.29-11.43)
[2025-08-14 15:53] LABS: Lactic Sepsis W/Reflex 2.1 mmol/L (0.5-2.2)
[2025-08-14] MEDS: morphine 4 mg/mL SDV 1 mL IM (15:56)
[2025-08-14 15:58] VITALS: PULSE 93; RESP 16; O2SAT 100
[2025-08-14 16:15] LABS: Alanine Aminotransferase 10 U/L (0-41); Albumin Level 3.5 g/dL (3.5-5.2); Alkaline Phosphatase 137 U/L (40-130); Anion Gap 14.5 (5-19); Aspartate Amino Transferase 21 U/L (0-40); Blood Urea Nitrogen 14 mg/dL (6-20); Calcium 9.3 mg/dL (8.5-10.5); Carbon Dioxide 25 mmol/L (22-29); Chloride 101 mmol/L (98-107); Globulin 2.6 g/dL (1.3-4.6); Glucose 316 mg/dL (65-115); Magnesium 1.7 mg/dL (1.7-2.3); Osmolality Calculated 297 mOsm/kg (285-295); Potassium 3.5 mmol/L (3.5-5.1); Sodium 137 mmol/L (136-145); Total Protein 6.1 g/dL (6.6-8.7)
[2025-08-14 16:45] LABS: Reflex Lactate Order REFLEX LACTIC ORDERD
--- OUTSIDE RECORDS SUMMARY | 2025-08-14 16:50 | XMS_ITS | Data Portability ---
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, [id number], 17:35:43 Referral None recorded. Procedures None recorded. Surgeries None recorded. Imaging None recorded. Medication Orders cetirizine 10 mg tablet 2024 025 [facility], [address] [place] [address], [address], 14:51:13 clonazepam 0.5 mg tablet 2024 025 [facility], [address] [place], [address], 14:47:36 gabapentin 300 mg capsule 2024 025 [facility], [address] [place] [address], [place], [address], 14:32:33 Patient TargetsNo targets recorded. Patient Instructions Encounter Date Encounter Id Patient Instructions Last Modified By Organization Details Last Modified Time 08/03/2025 [id number] records reviewed d/c several meds. Will benefit from tilt wheelchair as he is unable to hold himself up in normal wheelchair. He will need tilt wheelchair for 99 months. [email or web address] Not available 08/07/2025 14:56:56 Reason for Referral None Reported. Results Created Date Observation Date Name Description Value Unit Range Abnormal Flag Note LastModifiedBy Organization Detail LastModifiedTime 01/13/2001/16/2025 CARBA MAZEP INE, TOTAL carbamazepin e, total 7.7 mcg/m L 4.0-12 .0 This test was ellyn lazaro and its cheo tical perfo rmanc e shanel cteri stics have been deter mined by [facility] [place], [place]. It has not been clear ed or appro jean marie by the U.S. Food and Drug Admin istra tion. This assay has been valid ated pursu ant to the CLIA regul ation s and is used for clini artem purpo ses. Not Available [facility] [address] [place], [address], 01/16/2025 17:35:43 Result Notes None recorded. Problems Name Problem SNOMED Code Status Onset Date Resolution Date Notes Provider Name and Address Organization Details Recorded Time Essential hypertens ion 63268692 Active 2022 KIMMIE zhang [place] [facility] 10:39:35 Depressiv e disorder 77808454 [facility] 2022 [facility] 10:[facility] Anxiety 87575665 Active 2022 KIMMIE zhang, [facility] 10:39:35 Hyperlipi demia 07029544 Active 2022 KIMMIE zhang, [facility] 10:39:35 Involunta ry movement 706764655 Active 2022 KIMMIE zhang, [facility] 10:39:35 Dry skin 29732680 Completed 202212/18/2024 Riya zhang, [facility] 5 10:09:09 Seizure 75098446 Active 2022 KIMMIE ROSENDA leatha, [facility] 10:39:35 Schizophr enia 86220901 Active 2022 KIMMIE zhang, [facility] 3 10:39:35 Type 1 diabetes mellitus 71939914 Active 2022 KIMMIE TAMAYOG leatha, [facility] 10:39:35 Bilateral hearing loss 49757110 Active 2022 KIMMIE TAMAYOG leatha, [facility] 3 10:39:35 Physical deconditi oning 512369956472 02 Completed 202212/18/2024 Riya zhang, [facility] 5 10:12:56 Daytime somnolenc e 351608511283 Active 2022 Riya zhang [facility], [facility] 5 10:10:32 Insomnia 229961796 Completed 202212/18/2024 Riya zhang, [facility] 5 10:13:14 Hypoglyce digna 348084900 Active 2022 [facility] 10:11:40 Chronic kidney disease stage 5 648983106 Active 2022 [facility] 10:10:14 Increased frequency of urination 242757047 Completed 202312/18/2024 Riya Winkler [facility] 5 10:11:50 Dry skin dermatiti s 634614392 Completed 202312/18/2024 Riya Winkler [facility] 5 10:20:14 Dry skin dermatiti s 149317407 Active 2023 Riya Winkler [facility] 5 10:20:14 Low back pain 532952042 Active 2023 Riya Winkler [facility] 5 10:11:57 Compressi on fracture of lumbar spine 905907342 Active 2023 Riya Winkler [facility] 5 10:10:55 Thickened nails 070926596 Active 2023 Riya Winkler [facility] 5 10:12:43 Gastroeso phageal reflux disease 462849264 Active 2023 Riya Winkler [facility] 5 10:11:34 Spinal stenosis of lumbar region 24740719 Active 2023 Riya Winkler [facility] 5 10:12:09 Chronic pain 81453359 Active 2023 Riya zhang [facility] 5 10:10:21 Type 2 diabetes mellitus 04787528 Active 2023 Riya zhang, [facility] 5 10:13:19 Chronic insomnia 730018120 Active 2023 [facility] 5 10:10:08 Strain of rotator cuff of shoulder 957816726 Completed 202312/18/2024 Riya Peterson leatha, [facility] 5 10:12:28 Chronic back pain 387607825 Active 2023 Riya Peterson leatha [facility] 5 10:10:04 Weakness of bilateral lower limb Active 2023 [facility] 10:13:37 Bilateral shoulder joint pain 267825305660 58710 Active 2023 [facility] 10:09:39 Syncope 418640992 Completed 202312/18/2024 Riya Peterson leatha [facility] 5 10:12:37 Recurrent falls 210179807 Active 2023 Riya zhang [facility] 5 10:12:03 Chapping of lips 983506021 Completed 202412/18/2024 [facility] 5 10:20:24 Chapping of lips 917961975 Active 2024 Riya Winkler leatha [facility] 5 10:20:24 Altered mental status 135575669 Active 2024 [facility] 10:09:28 Dysphagia 14913029 Active 2024 [facility] 5 10:11:20 Edguilleulou s 840927266 Active 2024 [facility] 5 14:30:35 Pressure injury of sacral region of back stage II Active 2024 Connor Garciaell leatha [facility] 5 14:30:42 Allergic rhinitis 89850283 Active 2024 Nj Gilliam MD [address] [place] [address], [id number] [place] [address], [facility].L[facility] 5 16:01:58 Problem Notes None recorded. Medical Equipment None Reported. Allergies Allergen ID Allergen Name Allergen Category Reaction Reaction Severity Criticality Documentation Date Start Date Code Code System Note Provider Name and Address Organization Details Recorded Time 99063 No known allergy (situatio n) Not available Not available Not available Not available 05/13/2024 41225 6003 SNOMED Briana Mathur [facility] 4 07:57:56 No known drug allergies [...] ne 5 mg-acetam inophen 325 mg tablet Take 1 tablet every 6 hours by oral route as needed for 30 days. 2024 active Not Available Not Available Not Avai lable Thick-It oral powder USE DIRECTED TO MAKE LIQUID EXTREMLY THICKENE D 2024 active Not Available Not Available Not Avai lable diphenhyd ramine-zi nc acetate 1 %-0.1 % topical cream apply every 12 hours to AFFECTED AREA 04/13 completed Not Available Not Available Not Available lisinopri l 20 mg tablet Take 1 tablet every day by oral route for 90 days. 12/04/ 2024 active Not Available Not Available Not Avai lable ondansetr on HCl 4 mg tablet TAKE 1 TABLET BY MOUTH EVERY 6 HOURS NEEDED active Not Available Not Available No t Available prednison e 20 mg tablet TAKE 2 TABLETS BY MOUTH ONCE DAILY FOR 5 DAYS active Not Available Not Available No [...] 2024 active not on current emr through [employer]. Not Available Not Available Not Available hydrocodo ne 7.5 mg-acetam inophen 325 mg tablet Take 1 tablet every 6 hours by oral route as needed for 30 days. 2024 active Not Available Not Available Not Avai lable cephalexi n 500 mg capsule take 1 [...] 2024 active not on current emr through [employer]. Not Available Not Available Not Available docusate [...] Available Not Available cefdinir 300 mg capsule TAKE 1 CAPSULE BY MOUTH TWICE DAILY FOR 7 DAYS 08/03 completed Not Available Not Available Not Available [...] BY MOUTH TWICE DAILY FOR 7 DAYS ADMINIST ER AFTER DIALYSIS ON DIALYSIS DAYS 08/03 completed Not Available Not Available Not Available Uniderm Moisturiz er lotion Apply 1 applicat ion twice a day by topical route as needed. 2024 active Not Available Not Available Not Avai lable Bactrim 400 mg-80 mg tablet Take 1 tablet every 12 hours by oral route for 10 days. 12/24 completed Not Available Not Available Not Available insulin lispro (U-100) 100 unit/mL subcutane ous pen INJECT 5 UNITS SUBCUTAN EOUSLY THREE TIMES DAILY AFTER MEALS BASED ON LOW-DOSE SLIDING SCALE. MAX DAILY DOSE IS 60 UNITS. active Not Available Not Available No t Available escitalop evangelista 10 mg tablet TAKE [...] completed Not Available Not Available Not Available [place] Cough Drops 3.2 mg Take 1 lozenge [...] lable TechLITE Pen Needle 31 gauge x 02/13 USE DIRECTED TO administ er insulin FOUR [...] Vitals Date Recorded Body height Body temperature Systolic And Diastolic Provider Name and Address Organization Details Last Updated DateTime 02/13/2025 175.26 cm 97.8 [degF] 140/80 mm[Hg] MELINA ACHARYA [facility] 02/13/2025 12:05:06 Date Recorded Body height Body mass index (BMI) Body weight Body temperature Oxygen saturation Oxygen saturation in Arterial blood by Pulse oximetry Heart rate Systolic And Diastolic Provider Name and Address Organization Details Last Updated DateTime 5 175.26 cm 17.9 kg/m2 99465.6 8 g 97.7 [degF] 97 % 97 % 90 /min 116/78 mm[Hg] Stephania Abreu [facility] 5 15:30:11 Date Recorded Body height Body mass index (BMI) Body weight Heart rate Respiratory rate Body temperature Oxygen saturation Oxygen saturation in Arterial blood by Pulse oximetry Systolic And Diastolic Provider Name and Address Organization Details Last Updated DateTime 5 175.26 cm 16.1 kg/m2 44344.5 7 g 86 /min 18 /min 97.3 [degF] 98 % 98 % 93/50 mm[Hg] TAY TUCKER [facility] 5 14:10:50 Date Recorded Body height Provider Name an d Address Organization Details Last Updated DateTime 08/13/2025 175.26 cm TAY TUCKER [facility] 08/13/2025 13:13:48 Social History Question Answer Notes LastModified by [employer] Details LastModified Time Tobacco Smoking Status Current Every Day Smoker Riya Peterson zhang [facility] 09/09/2024 10:25:05 What Is Your Level Of Caffeine Consumption? Moderate [email or web address] Information not available 12/24/2024 What Was The Date Of Your Most Recent Tobacco Screening? 03/10/2025 Information not available 03/10/2025 Which Types Of Nicotine-free Products Have You Used? Vape [email or web address] Information not available 09/09/2024 Sex: Unknown Functional Status Question Answer Note LastModified by [employer] Details LastModified Time Do you use any illicit or recreational drugs? No [email or web address] Information not available 09/09/2024 What is your level of alcohol consumption? None [email or web address] Information not available 09/09/2024 Do you or have you ever used any nicotine-free cigarettes, vape, or chewing tobacco? Yes [email or web address] Information not available 09/09/2024 Mental Status None recorded. Family History Nothing Reported. Medical History No medical history recorded. Immunizations Vaccine Type Date Status Note Provider Nam e and Address Organization Details Recorded Time COVID-19, mRNA, LNP-S, PF, 100 mcg/0.5mL dose or 50 mcg/0.25mL dose 1 completed KIMMIE zhang [facility] 03/16/2023 17:17:02 COVID-19, mRNA, LNP-S, PF, 100 mcg/0.5mL dose or 50 mcg/0.25mL dose 1 completed KIMMIE zhang [facility] 03/16/2023 17:17:02 pneumococcal polysaccharide PPV23 5 completed KIMMIE zhang [facility] 03/16/2023 17:17:02 influenza, unspecified formulation 1 completed KIMMIESA ROSENDA zhang, [facility] 03/16/2023 17:17:02 Tdap 5 completed KIMMIE zhang, [facility] 03/16/2023 17:17:02 Tdap 3 completed KIMMIE zhang, [facility] 03/16/2023 17:17:02 Influenza, split virus, trivalent, preservative 3 [facility] 03/16/2023 17:17:02 Hep B, adult 4 [facility] 03/16/2023 17:17:02 Hep B, adult 3 [facility] 03/16/2023 17:17:02 Hep A, adult 3 completed KIMMIE zhang, [facility] 03/16/2023 17:17:02 Influenza, split virus, quadrivalent, PF 1 completed KIMMIE zhang [facility] 03/16/2023 17:17:02 Influenza, split virus, quadrivalent, PF 8 completed [facility] 03/16/2023 17:17:02 Influenza, split virus, quadrivalent, PF 3 completed MELINA zhang, [facility] 06/14/2023 14:48:35 Past Encounters Encounter ID Performer Location Encounter Start Date Encounter Closed Date Diagnosis/Indication Diagnosis SNOMED-CT Code Diagnosis ICD10 Code Diagnosis IMO Codes Diagnosis Note [id number] Nj Gilliam MD [facility] ([facility]) [address] [place] [address] [phone] 5 03/16/2023 17:00:32 03/16/2023 17:55:10 Type 1 diabetes mellitus 51852793 E10.8 Continue insulin. Order Dexcom. Impaired mobility 086163 05 Z74.09 We will send referral for PT and OT Bilateral hearing loss 02077031 H91.93 Depressive disorder 3548 9007 F32.A Concerned that the Lexapro may be contribute to the patient's insomnia. Recommend coming off the medication . We will readdress this at next visit. Anxiety 67966280 F41.9 Essential hypertension 62472379 I10 Blood pressure is currently controlled . Hyperlipidemia 05473856 E78.5 Involuntary movement 267 389858 R25.9 Schizophrenia 59388405 F 20.9 Recommend that the patient be establishe d with psychiatry Seizure 55037622 R56.9 Continue antiseizur e medication s. [id number] Nj Gilliam MD [facility] ([facility]) [address] [place] [address] [phone] 5 03/23/2023 16:54:47 03/23/2023 18:09:58 Type 1 diabetes mellitus 39614942 E10.8 We will add sliding scale insulin [...] not going to eat within 15 minutes. [id number] JOEL CASTILLO [facility] ([facility]) [address] [place] [address] [id number] 5 03/30/2023 13:48:47 04/14/2023 21:36:37 Chest pain 22480874 R07.9 Due to elevated BP over the past 18 hours, DAMIAN, increased fatigue, and chest pain that radiates to the left arm, referring to ED. Report called by VU Parra to [facility] ED. Caregivers agreed to take patient to ED. Will follow up with PCP pending ED discharge and diagnosis. [id number] Dariusz Preciado MD [facility] ([facility]) [address] [place] [address] [id number] 5 04/06/2023 09:49:54 04/06/2023 11:31:07 Essential hypertension 49416135 I10 d/c lisinopril /hctzchlor thalidone Uncontroll ed type 1 diabetes mellitus 160350753 E10.65 Chest pain 55596321 R07. 9 [id number] Dariusz Preciado MD [facility] ([facility]) [address] [place] [address] 04/16/2023 12:17:59 04/16/2023 13:56:08 Urinary incontinence 873753154 R32 Uncontroll ed type 2 diabetes mellitus 307294976 E11.65 ssi changedif fsbs isabove 400 unitsreche ck fsbs q 2 hours and give sliding scale as written. once under 300 resume fsbs qac and qhs Essential hypertension 16949308 I10 at last visit d/c lisinopril /hctzchlor thalidoneh as some lower bps now. in a much safer range overall will leave further fine tuning and possible prn to his pcp. [id number] Nj Gilliam MD [facility] ([facility]) [address] [place] [address] [id number] 5 04/30/2023 12:12:50 04/30/2023 16:54:46 Bilateral hearing loss 96357627 H91.93 We will send referral to audiologis t to discuss hearing loss and hearing aids. Physical deconditioning 9849443618 9102 R68.89 Patient does have significan t physical disability but this would likely improve with therapy. We will also provide order today for walk for with seat to help him ambulate easier and safer. Daytime somnolence 38393 80045 00 R40.0 Likely related to medication s. The likely culprits is either clonidine and/or gabapentin . We will start by stopping clonidine and monitoring blood pressure. We will address any blood pressure issues coming off the medication . If no improvemen t is noted that gabapentin may be the likely culprit Insomnia 985387649 G47.0 0 The patient is sleeping a lot during the day and having trouble sleeping at night. We will start melatonin to see if this helps. We will consider other sleep agents if necessary. Type 1 mindy betes mellitus 13423291 E10.8 Continue blood sugar management [id number] Nj Gilliam MD [facility] ([facility]) [address] [place] [address] [id number] 5 05/23/2023 15:41:39 05/23/2023 17:05:31 Hypoglycemia 341573560 E16.2 patient was only briefly evaluated and sent to the ER due to mental status changes 2/2 hypoglycem ia. [id number] Nj Gilliam MD [facility] ([facility]) [address] [place] [address] [id number] 5 06/14/2023 14:03:23 06/14/2023 16:32:37 Insomnia 057202708 G47.00 The patient has had some mild improvemen t with melatonin so we will add trazodone to help with attaining sleep. Essential hypertension 72579623 I10 Blood pressure is currently controlled . Hyperlipidemia 44480980 E78.5 We will check lipids today. Type 1 mindy betes mellitus 53230870 E10.8 Continue blood sugar management Active or passive immunization 748861956 Z23 Flu shot given Tuberculos is screening 799434513 Z11.[address] TB test next week as needed for his half-way status. Adult [facility] th examination 189737107 Z00.00 Overall the patient is fairly stable. Was still having some fluctuatio n in his blood sugars but this is being managed well by the half-way. Patient is ambulating more and working with physical therapy. No other changes needed at this time. [id number] Nj Gilliam MD [facility] ([facility]) [address] [place] [address] [id number] 5 07/13/2023 11:14:18 07/13/2023 12:33:18 Type 1 diabetes mellitus 83818911 E10.8 Discussed blood sugar management with patient [...] . Chronic ki dney disease stage 5 948582596 N18.5 Patient has significan t elevated creatinine and low GFR consistent with stage V chronic kidney disease. Nephrology did not want to see the patient at [facility] so we will send referral to new facility. [id number] Nj Gilliam MD [facility] ([facility]) [address] [place] [address] [id number] 5 09/21/2023 10:09:03 09/21/2023 15:55:12 Essential hypertension 87254944 I10 Blood pressure is currently controlled . Type 1 mindy betes mellitus 94135882 E10.8 Patient's blood sugars are doing much better. Discussed the importance of following diabetic diet and monitoring blood sugars especially given his kidney disease. Chronic ki dney disease stage 5 019869723 N18.5 Continue to follow with nephrology . Patient will likely need dialysis at some point. Discussed the importance of making appointmen ts with the patient and he expresses understand ing. [id number] Nj Gilliam MD [facility] ([facility]) [address] [place] [address] [id number] 5 10/17/2023 10:12:44 10/17/2023 12:54:25 Tuberculosis screening 775738137 Z11.[address] TB test [id number] Nj Gilliam MD [facility] ([facility]) [address] [place] [address] [phone] 5 11/02/2023 09:29:48 11/02/2023 13:24:36 Increased frequency of urination 098599770 R35.0 Will check UA to make sure that there is no signs of infection. Otherwise we will provide bedside commode and depends prescripti ons today. Type 1 mindy betes mellitus 41887029 E10.8 Continue current sliding scale and follow-up with Dr. Cordova. [id number] Nj Gilliam MD [facility] ([facility]) [address] [place] [address] [id number] 5 11/20/2023 14:54:47 11/20/2023 16:31:57 Dry skin dermatitis 910092288 L85.3 Schizophrenia 03333106 F 20.9 Continue follow-ups with psychiatry but we will go ahead and increase his Abilify Type 1 mindy betes mellitus 98642642 E10.8 Continue current sliding scale and follow-up with Dr. Cordova. Essential hypertension 50785595 I10 Counseled the patient on the importance of monitoring blood pressure and he agrees that he will be compliant with blood pressure checks. Recommend checking blood pressure daily for the next week and provide those readings to ensure blood pressure is controlled . Chronic ki dney disease stage 5 175652815 N18.5 Continue to follow with nephrology . Patient will likely need dialysis at some point. Discussed the importance of making appointmen ts with the patient and he expresses understand ing. [id number] Nj Gilliam MD [facility] ([facility]) [address] [place] [address] [id number] 5 01/09/2024 11:41:28 01/09/2024 12:26:05 Essential hypertension 14984156 I10 Patient needs to continue with his blood pressure management and follow-up with nephrology . Chronic ki dney disease stage 5 610982537 N18.5 Continue follow-up with nephrology . Will send referral for vascular surgeon for line placement. Patient is currently on board with dialysis but he does have a history of noncomplia nce. Central line placement initially is recommende d for this patient and consider fistula for long-term dialysis. Low back pain 901832111 M54.50 On his recent fall will obtain x-rays for further evaluation . Physical deconditioning 8002840161 9102 R68.89 Patient does have significan t physical disability but this would likely improve with therapy. [id number] Nj Gilliam MD [facility] ([facility]) [address] [place] [address] [id number] 5 01/14/2024 16:04:49 01/15/2024 12:07:09 Compression fracture of lumbar spine 548436838 M48.56XD Will send him pain medication to help with pain management . It is recommende d that we proceed with MRI for further evaluation of his back. Chronic ki dney disease stage 5 178261629 N18.5 Will check labs today including. B surface imaging as requested. [id number] Nj Gilliam MD [facility] ([facility]) [address] [place] [address] [id number] 5 01/23/2024 10:57:15 01/23/2024 11:58:36 Thickened nails 550719063 Q84.5 Sent referral to podiatry for foot and nail care. Located nail on the partially avulsed wound was trimmed and wrapped. No further interventi on at this time. Compressio n fracture of lumbar spine 209483572 M48.56XD Patient has MRI scheduled for January 29. Will send in referral to Dr. Simmons for follow-up after his MRI. It was instructed to allow for assistance with transfer and position. The patient expresses understand ing. If care is exceeding the abilities of current residence and group home placement would be recommende d. Recommend pursuing [facility] ip given the patient's poor insight. [id number] Nj Gilliam MD [facility] ([facility]) [address] [place] [address] [id number] 5 02/05/2024 12:48:51 02/05/2024 14:28:26 Chronic pain 15267310 G89.29 Will continue gabapentin daily at bedtime. Continue aspirin every day. Gastroesop hageal reflux disease 723263785 K21.9 Will start Pepcid to help control his reflux symptoms. Spinal derick nosis of lumbar region 92251812 M48.061 Reviewed MRI results with patient and caregivers . Referral pending. Chronic ki dney disease stage 5 [id number] N18.5 Continue nephrology follow-up and dialysis as planned. Caregivers have plan to evaluate catheter daily. [id number] Nj Gilliam MD [facility] ([facility]) [address] [place] [address] [phone] 5 03/04/2024 12:34:34 03/04/2024 13:00:01 Low back pain 631996136 M54.50 He is more due to transfers than anything. Continue to use gait belt for safety. Start physical therapy to help rehab and hopefully with pain relief. Essential hypertension 00576089 I10 Patient needs to continue with his blood pressure management and follow-up with nephrology . Type 1 mindy betes mellitus 22428029 E10.8 Continue current sliding scale and follow-up with Dr. Cordova. End stage renal failure on dialysis 423486385 Z99.2 Continue dialysis. [id number] Nj Gilliam MD [facility] ([facility]) [address] [place] [address] [phone] 5 03/26/2024 11:49:47 03/26/2024 12:25:50 Chronic insomnia 128384252 F51.04 Increase his trazodone to 150 mg nightly Type 1 mindy betes mellitus 11929790 E10.8 Continue current sliding scale and follow-up with Dr. Cordova. Prescripti on sent to the pharmacy with sliding scale attached and the maximum daily insulin usage. Strain of rotator cuff of shoulder [id number] S46.011A Likely a strain of the rotator cuff. Recommend physical therapy initially. [id number] Nj Gilliam MD [facility] ([facility]) [address] [place] [address] [phone] 5 04/18/2024 12:35:41 04/21/2024 09:08:28 Chronic pain 26415762 G89.29 Will continue gabapentin daily at bedtime. Continue aspirin every day. We will add hydrocodon e daily as needed. Anxiety 36561475 F41.9 Will provide clonazepam to use on dialysis days. Diarrhea 91773885 R19.7 Discussed using loperamide as needed to help with diarrhea. Impaired mobility 259497 05 Z74.09 The patient has a significan t issues with mobility and requires a manual wheelchair . He needs a new order for a new wheelchair given the condition of his current 1. [id number] Nj Gilliam MD [facility] ([facility]) [address] [place] [address] [phone] 5 04/29/2024 14:33:12 04/29/2024 15:41:32 Low back pain 715482827 M54.50 Continue with pain medication s. The patient would likely benefit from a wedge pillow. Will send order to home and see if insurance will help cover a wedge pillow for the patient. Screening for malignant neoplasm of colon 407017560 Z12.11 Will send order for general surgery to the hospital for screening colonoscop y. Screening for malignant neoplasm of prostate 232811813 Z12.5 Will check a PSA today and await colonoscop y for prostate exam. Hyperlipid emia screening 657301789 Z13.220 Physical deconditioning 4640409630 9102 R68.89 Patient does have significan t physical disability and has not been able to ambulate with a walker and uses a wheelchair for mobility. [id number] Nj Gilliam MD [facility] ([facility]) [address] [place] [address] [phone] 5 07/01/2024 16:28:48 07/01/2024 17:46:13 Screening for malignant neoplasm of colon 190363399 Z12.11 Discussed concerns about the prep and the patient's likely to refuse and the caregivers agree that this may not be the best option for the patient. Discussed Cologuard and they feel that the patient would likely be more compliant with it. Chronic pain 60439353 G8 9.29 Discussed pain medication s and there is not a good option for a patch for the patient. Will continue with current pain management at this time. [id number] Nj Gilliam MD [facility] ([facility]) [address] [place] [address] [phone] 5 07/31/2024 15:55:48 08/01/2024 11:58:51 Dysuria 96727466 R30.0 Patient was unable to give a urine sample today. Concerned that the blood is coming from the urine based on her provided by caregiver that showed blood in the anterior portion of the toilet. We will send home collection kit with the patient to collect a UA and bring it back for evaluation . Follow-up pending those results. [id number] Nj Gilliam MD [facility] ([facility]) [address] [place] [address] [phone] 5 08/05/2024 16:42:27 08/07/2024 10:38:38 Active or passive immunization 730821134 Z23 Chronic back pain 297752 002 G89.29 Will add lidocaine patches on top of his other interventi ons to see if this will help with his pain during dialysis. Schizophrenia 37781378 F 20.9 Continue follow-ups with psychiatry . Will obtain lab work as recommende d by psychiatry . Dry skin dermatitis 2600 42005 L85.3 Eucerin cream changed to as needed. Bilateral shoulder joint pain 5118011560 3282418 M25.511 M25.512 Patient is having significan t difficulty operating a manual wheelchair . The patient definitely would benefit from a power wheelchair given this disability . Weakness o f bilateral lower limb 1994706449 36312 M62.81 Patient continues to utilize a wheelchair for mobilizati on and to address ADLs and to be able to go to the bathroom and other parts of his house. Will attempt to obtain powered wheelchair for him as this would significan tly help the patient. Patient is capable of operating a power wheelchair without difficulty . [id number] Nj Gilliam MD [facility] ([facility]) [address] [place] [address] [phone] 5 09/09/2024 10:16:16 09/09/2024 10:45:10 Syncope 684954136 R55 Likely related to blood pressure. Continue with blood pressure checks at shift change. Encouraged the patient to increase fluid intake. [facility] risk for falls 773733897 Z91.81 It would not be unreasonab le to have an alarm for his wheelchair that they can utilize. The patient does not necessaril y try to get up out of the wheelchair but he has placed him in situations where he has fallen out. This may help minimize the risk of fall. Will send order to home. Recurrent falls 49580312 2 R29.6 [id number] RAKESH KUMAR [facility] ([facility]) [address] [place] [address] [phone] 5 09/16/2024 11:19:48 09/16/2024 12:26:21 Viral upper respiratory tract infection 249314231 J06.9 rxn for cough drops and dayquil provided. Med list updated.Re turn if pt develops fever, sob, or symptoms worsen. [id number] RAKESH KUMAR [facility] ([facility]) [address] [place] [address] [phone] 5 10/07/2024 13:39:43 10/08/2024 11:43:03 Dysuria 50290153 R30.0 Acute urin wilfredo tract infection 828989879 N39.0 UA results reviewed and discussed with pt. We will start antibiotic s. Pt will increase oral fluids. Return to office with no improvemen t or any problems. Go to ER with severe worsening or severe problems.W e will obtain urine culture [id number] Nj Gilliam MD [facility] ([facility]) [address] [place] [address] [phone] 5 10/31/2024 11:05:45 10/31/2024 12:08:04 Chapping of lips 422931262 K13.0 Altered mental status 41 6660844 R41.82 Symptoms resolved with no further issues at this time. No concerns on today's examinatio n. Continue current interventi ons. [id number] Nj Gilliam MD [facility] ([facility]) [address] [place] [address] [phone] 5 11/11/2024 12:02:22 11/11/2024 13:09:01 Essential hypertension 39760040 I10 We will increase his hydralazin e to 50 mg 4 times daily. Chronic ki dney disease stage 5 523802813 N18.5 Continue nephrology follow-up and dialysis as planned. Caregivers have plan to evaluate catheter daily. Recurrent falls 33261294 2 R29.6 The patient continues to have recurrent falls and there is significan t concerns that his needs for his ADLs have exceeded the capability of his current living situation. The patient likely needs a higher level of care such as group home. Currently the patient is his own guardian and he has not wanted to return to group home. However, there is significan t concerns about his capacity to make appropriat e healthcare decisions. It is of my opinion that the patient is not capable of making appropriat e decisions involving his health care. [id number] Nj Gilliam MD [facility] ([facility]) [address] [place] [address] [phone] 5 12/24/2024 11:58:51 12/24/2024 13:11:11 Dry skin dermatitis 565290788 L85.3 Continue motion to right shoulder as needed. Prescripti on provided. Essential hypertension 63802718 I10 We will increase his hydralazin e to 50 mg 4 times daily. Edentulous 205643834 K08 .109 Oral exam performed today. No oral lesions noted. The patient is a dentulous. Type 2 mindy betes mellitus 27051593 E11.9 Continue with current diabetes management . Patient is seeing Dr. Cordova. Chronic ki dney disease stage 5 067537841 N18.5 Continue nephrology follow-up and dialysis as planned. Caregivers have plan to evaluate catheter daily. Spinal derick nosis of lumbar region 03029739 M48.061 This is likely contributi ng to the patient's inability to ambulate well and to change positions. The patient needs a hospital bed to help minimize pressure injuries as the 1 he currently has. 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 Continue with current wound care. We will send order to home health to help with management of this wound. Weakness o f bilateral lower limb 9755001099 15785 M62.81 Patient continues to utilize a wheelchair for mobilizati on and to address ADLs and to be able to go to the bathroom and other parts of his house. [id number] Nj Gilliam MD [facility] ([facility]) [address] [place] [address] [phone] 5 01/12/2025 15:01:14 01/13/2025 11:41:40 Long-term drug therapy 413135651 Z79.934 [id number] Nj Gilliam MD [facility] ([facility]) [address] [place] [address] [phone] 5 02/13/2025 11:48:00 02/13/2025 13:50:36 Chronic pain 32594262 G89.29 We will DC his hydrocodon e and continue his gabapentin Chronic ki dney disease stage 5 013503278 N18.5 Continue nephrology follow-up and dialysis as planned.. Essential hypertension 62091883 I10 Will hold blood pressure medication on the days of his dialysis to help prevent lows. Continue blood pressure medicine on the days that he is not on dialysis. Type 2 mindy betes mellitus 52658046 E11.9 Continue with current diabetes management . Patient is seeing Dr. Cordova. However, the patient is out of testing supplies so we will send orders for him. Weakness o f bilateral lower limb 7204206882 53647 M62.81 Patient utilizes a wheelchair for mobilizati on. We will provide a gait belt to help staff be able to mobilize the patient safer. Recurrent falls 75253630 2 R29.6 Patient has had a history of recurrent falls and would recommend that we make effort to help minimize this. Utilizing a seat belt for his wheelchair and alarms would be helpful in this regard. Will send orders for DME. [id number] Nj Gilliam MD [facility] ([facility]) [address] [place] [address] 03/10/2025 15:21:53 03/10/2025 16:17:23 Anxiety 35025358 F41.9 Continue clonazepam prior to dialysis as this has been helping. Allergic rhinitis 524753 04 J30.9 [id number] Will start cetirizine to help with allergy symptoms. Chronic ki dney disease stage 5 161356862 N18.5 Continue nephrology follow-up and dialysis as planned.. Essential hypertension 12966452 I10 Current blood pressure management seems to be working well for him. Type 1 mindy betes mellitus 14967144 E10.8 Continue current sliding scale and follow-up with Dr. Cordova. Prescripti on sent to the pharmacy with sliding scale attached and the maximum daily insulin usage. [id number] Zurdo Mcfarland DO [facility] ([facility]) [address] [place] [address] 08/03/2025 12:33:11 08/10/2025 09:04:50 End stage renal failure on dialysis 336309883 N18.6 Z99.2 187687 Type 1 mindy betes mellitus 99107950 E10.22 N18.6 Z99.2 [id number] Health Concerns Section Related Observation LastModified by Organization Detai ls LastModified Time None Recorded Concern Status LastModified by Organization Details LastModified Time None Recorded Advance Directives Directive None Recorded Payers Insurance Date Sequence Insurance Name Policy Number Policy Bernabe Covered Member ID Bernabe Member ID Guarantor Name 08/03/2025 [place] [facility] Tyrese Leach [id number] Tyrese Leach 08/03/2025 1 [place] Tyrese Hany [id number] Tyrese Hany Notes Date Note Type Note Provider Name and Address Organization Details Recorded Time 02/14/20 25 text/htm l This is a 54-year-old gentleman comes in [...] causes some behavior concerns. Nj Gilliam MD [address] [place] [address], [phone], [facility] 02/17/2025 16:54:11 03/10/20 25 text/htm l Today will be his last visit here. 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 Patient needs refills on several medications. Has been having persistent issues with allergies. [place], everything else has been stable. She has been tolerating dialysis better and is not having low blood pressure readings. The patient has not been in the ER since last visit. Nj Gilliam MD [address] [place] [address], [phone], [facility] 03/12/2025 09:44:00 08/03/20 25 text/htm l DiabetesReported by PatientHPIFor duration, patient reportschronic. For compliance, patient reportscompliant with medicationsandcompliant with follow-up visits.ROS as noted in the HPI new admit to snf. Zurdo Mcfarland DO [address] [place] [address], [phone], [facility] 08/07/2025 14:57:14 08/13/20 25 text/htm l DiabetesReported by PatientHPIFor duration, patient reportschronic. For compliance, patient reportscompliant with medicationsandcompliant with follow-up visits.ROS as noted in the HPI check up Not Available Not Available Not Available
[2025-08-14 17:00] VITALS: PULSE 89; RESP 16; O2SAT 100
[2025-08-14 17:41] LABS: Glucose Urine UA Negative (Normal); Nitrate Urine Negative (Negative); Specific Gravity, Urine 1.012 (1.005-1.030)
[2025-08-14 17:46] LABS: Add Urine Microscopic? YES
[2025-08-14 18:00] VITALS: BP 140/75; PULSE 87; RESP 14; O2SAT 100
[2025-08-14 18:09] LABS: UA Slide Review UA Slide Review Perf
[2025-08-14 18:13] LABS: Lactic Acid level (Lactate) 1.3 mmol/L (0.5-2.2)
[2025-08-14] MEDS: cefTRIAXone 1,000 mg SDV 1000 MG IVP (18:13)
[2025-08-14 18:17] LABS: PCP Screen Urine Negative (Negative)
--- NOTE | 2025-08-14 18:22 | PC.NURSE ---
this nurse attempted to call report to [facility] three times. no one answered the phone any of the times called.
[2025-08-14 19:00] VITALS: BP 137/71; PULSE 83; RESP 16; O2SAT 100
[2025-08-14 20:09] VITALS: BP 151/76; PULSE 80; RESP 16; O2SAT 100
== END 2025-08-14 20:10 | disposition home or self-care (01) ==
PROVIDERS: Emergency Provider Physician Assistant; PCP Family Medicine
DX: N30.01 Acute cystitis with hematuria (principal); Z79.4 Long term (current) use of insulin; Z79.82 Long term (current) use of aspirin; E78.2 Mixed hyperlipidemia; E11.22 Type 2 diabetes mellitus with diabetic chronic kidney disease; I12.0 Hypertensive chronic kidney disease with stage 5 chronic kidney disease or end stage renal disease; N18.6 End stage renal disease; F17.210 Nicotine dependence, cigarettes, uncomplicated
CPT/HCPCS: 36415; 71045; 80053; 80306; 81001; 83605; 83735; 84100; 85025; 86140; 87077; 87086; 87186; 93005; 96372; 96374; 99285; J0696; J2270; J7040